=== PATIENT | female | born 1950 | race Caucasian/White ===

== ENCOUNTER 2019-12-10 20:31 | Outpatient (CLI) | payer BC, SELFPAY ==
--- NOTE | ~2019-12-10 | MR_ITS ---
EXAMINATION: MR knee LT wo con DATE: 12/10/2019 21:17 INDICATION: Left knee pain TECHNIQUE: Magnetic resonance imaging (MRI) of the left knee was performed without intravenous contra st. Sequences included coronal PD-weighted FSE, coronal PD-weighted FS FSE, sagittal T2-weighted FSE , sagittal PD-weighted FS FSE and axial PD weighted fat saturated FSE. COMPARISON: None. FINDINGS: Medial compartment: Longitudinal oblique tear which extends contact the inferior articular surface of the posterior horn of the medial meniscus. Chondral fissuring with underlying irregular articular cortex and mild subart icular cystic change at the medial side of the posterior weightbearing medial femoral condyle. Remain ing cartilage in the medial compartment appears relatively preserved. Lateral compartment: Lateral meniscus is normal. Articular cartilage is normal. Patellofemoral compartment: Deep chondral ulceration with minimal subarticular edema at the cephalad two thirds of the medial pat ellar facet and patellar apical ridge. Trochlear cartilage is normal. Ligaments and tendons: Anterior and posterior cruciate ligaments are normal. The medial collateral ligament and fibular dora ateral ligament complex are normal. The extensor mechanism is normal. The visualized medial and later al hamstring tendons as well as the iliotibial band are normal. Fluid: Small knee joint effusion. Partial suprapatellar plical band. No loose osteochondral bodies identifie d. 3.8 x 2.7 x 0.9 cm Mcmahan cyst with mild synovitis. Osseous/other: Bone alignment is normal. Sclerotic bone island at the medial tibial plateau. No fracture or patholog ic marrow replacing process. IMPRESSION: 1. Longitudinal oblique tear of the posterior horn of the medial meniscus. 2. Mild osteoarthritis in the medial and patellofemoral compartments with high-grade chondromalacia a t the posterior weightbearing medial femoral condyle and at the medial patellar facet. 3. Likely reactive small left knee joint effusion. 4. Small Mcmahan's cyst. Reviewed, dictated and finalized at location A. IMPRESSION: 1. Longitudinal oblique tear of the posterior horn of the medial meniscus. 2. Mild osteoarthritis in the medial and patellofemoral compartments with high- grade chondromalacia at the posterior weightbearing medial femoral condyle and at the medial patellar facet. 3. Likely reactive small left knee joint effusion. 4. Small Mcmahan's cyst.
== END 2019-12-10 20:32 | disposition home or self-care (01) ==
PROVIDERS: PCP Internal Medicine; Visit Provider Nurse Practitioner Family
DX: M17.12 Unilateral primary osteoarthritis, left knee (principal); M71.22 Synovial cyst of popliteal space [Baker], left knee; M25.462 Effusion, left knee; S83.242A Other tear of medial meniscus, current injury, left knee, initial encounter; X58.XXXA Exposure to other specified factors, initial encounter
CPT/HCPCS: 73721

== ENCOUNTER 2020-01-13 10:23 | Outpatient (CLI) | payer BC, SELFPAY ==
--- NOTE | 2020-01-13 10:25 | ECG_ITS ---
Measurements Intervals [place] Rate: 64 P: [place]: 0 QRS: 70 QRSD: 104 T: 61 QT: 386 QTc: 400 Interpretive Statements SINUS RHYTHM WITH FIRST DEGREE AV BLOCK ABNORMAL ECG Electronically Signed On 01-13-2020 13:27:57 CDT by Akhil Vergara D.O.
== END 2020-01-13 10:24 | disposition home or self-care (01) ==
LOC: ANHSURGERY 10:25
PROVIDERS: PCP Internal Medicine; Visit Provider Orthopaedic Surgery
DX: I10 Essential (primary) hypertension (principal); I44.0 Atrioventricular block, first degree
CPT/HCPCS: 93005

== ENCOUNTER 2020-01-14 00:38 | Outpatient (CLI) | payer BC, SELFPAY ==
[2020-01-14 19:08] LABS: SARS-CoV-2 RNA PCR Negative
== END 2020-01-14 00:39 | disposition home or self-care (01) ==
LOC: ANHCOVIDDT 00:38
PROVIDERS: PCP Internal Medicine; Visit Provider Orthopaedic Surgery
DX: Z01.812 Encounter for preprocedural laboratory examination (principal); Z11.59 Encounter for screening for other viral diseases
CPT/HCPCS: 87635; C9803; U0003

== ENCOUNTER 2020-01-16 00:43 | Day surgery (SDC) | payer BC, SELFPAY ==
[2020-01-10 14:22] VITALS: BMI 35.4
--- NOTE | 2020-01-15 13:27 | WPDANESEPPF ---
Anes - Initial Pre Proc Eval Procedure: Operation Date: 01/16/20 07:30 Proposed Procedures p Left Knee Arthroscopy, Debride Meniscus, Synovectomy, Chondroplasty, Proceed As Indicated, Left Ankle Injection - Jordan Castro MD Date/Time: 01/15/20 13:27 Surgeon: Jordan Castro MD Pre Op Diagnosis: left knee pain,left medial menisc tear,chondromyla Patient Data Age: 69 Gender: F Height: 5 ft 5 in Weight: 96.65 kg Allergies Allergy/AdvReac Type Severity Reaction Status Date / Time Sulfa (Sulfonamide Allergy Severe Hives Verified 01/16/20 06:45 Antibiotics) sulfanilamide Allergy Severe Hives Verified 01/16/20 06:45 codeine AdvReac Intermediate Nausea Verified 01/16/20 06:45 tramadol AdvReac Intermediate Hallucinati Verified 01/16/20 06:45 ng Home Medications Medication Instructions Recorded Confirmed Type diclofenac sodium 75 mg PO BID 06/18/19 01/16/20 History diltiazem HCl [Matzim LA] 240 mg PO DAILY 06/18/19 01/16/20 History estradiol [Estrace] 1 mg PO DAILY 06/18/19 01/16/20 History fluticasone propion-salmeterol 250 inh INHALATION BID 06/18/19 01/16/20 History [Advair Diskus] gabapentin [Neurontin] 400 mg PO BID 06/18/19 01/16/20 History gabapentin [Neurontin] 800 mg PO HS 06/18/19 01/16/20 History hydrocodone-acetaminophen [Goodells] 5 tablet PO BID 06/18/19 01/16/20 History levothyroxine [Synthroid] 125 mcg PO DAILY 06/18/19 01/16/20 History omeprazole 20 mg PO DAILY 06/18/19 01/16/20 History oxybutynin chloride [Ditropan XL] 10 mg PO DAILY 06/18/19 01/16/20 History trazodone 50 mg PO HS 06/18/19 01/16/20 History albuterol sulfate 90 mcg/actuation 2 inhalation INHALATION QID PRN #1 10/21/19 01/16/20 Rx breath activated powder inhaler each azelastine 1 spray INTRANASAL QPM 01/10/20 01/16/20 History cetirizine [Zyrtec] 10 mg PO DAILY 01/10/20 01/16/20 History fluticasone propionate [Flonase 1 spray INTRANASAL DAILY 01/10/20 01/16/20 History Allergy Relief] lisinopril 20 mg PO DAILY 01/10/20 01/16/20 History Patient hx anesthesia problems: post op nausea/vomiting Family hx anesthesia problems: none PMFSH Past Medical History Medical History (Updated 01/08/20 @ 17:28 by Jordan Castro MD) Acute pain of left knee Ankle impingement syndrome, right Asthma Degenerative joint disease of ankle Fibromyalgia HTN (hypertension) Hypercholesterolemia Obesity XENIA (obstructive sleep apnea) Social History Social History Smoking status: Never smoker Smoking end date: 07/03/69 Alcohol intake: current Alcohol use details: BEER/MIX DRINK ONE DRINK PER MONTH Living arrangements: with family Gender identity (if verbalized by the patient): Female Spiritual care concerns: No Anes - Eval Final PreProcedure Day of Procedure 01/15/20 13:27 Patient weight: obese Heart: regular rate and rhythm Lungs: clear to auscultation Airway: Mallampati scale class III Neurological: alert and oriented Last oral intake: >/= 8 hours ASA classification: III Anesthetic plan: proceed Anesthesia type and monitoring: general LMA and standard monitoring Informed Consent: The patient's anesthetic plan and its attendant risks and benefits were discussed with the patient/family/POA. Questions were solicited and answers provided to the satisfaction of the patient/family/POA.
[2020-01-16] VITALS (8 sets, daily range): BP systolic 108–140; BP diastolic 57–91; PULSE 67–87; RESP 15–20; TEMP 36.1–36.7; O2SAT 93–100
[2020-01-16] MEDS: LACTATED RINGERS 1,000 ML 30 ML IV CONT ×3 (07:00→09:08)
--- NOTE | 2020-01-16 07:05 | WPDHPUPDATE1 ---
History and Physical Update Update Date/Time: 01/16/20 07:05 History and Physical has been reviewed, including an updated exam of the patient. There are NO changes in the patient's condition. Covid test negative. Risks, benefits, and alternatives have been discussed and questions answered. Patient agrees to proceed with procedure.
[2020-01-16] MEDS: ACETAMINOPHEN 500 MG TABLET 1000 MG PO (07:09)
[2020-01-16] MEDS: KETOROLAC 15 MG/ML VIAL (*BKC) IV PUSH (07:10)
[2020-01-16] MEDS: SCOPOLAMINE 1.5 MG PATCH TRANSDERM (07:15)
[2020-01-16] MEDS: ONDANSETRON INJ 4 MG/2 ML VIAL IV PUSH (07:15)
[2020-01-16] MEDS: ceFAZolin 2 GM/D5W 50 ML 2 GM/50 ML BAG IVPB (07:23)
[2020-01-16] MEDS: BUPIVACAINE/EPINEPHRINE 0.5% 10 ML VIAL INFILTRATE (07:48)
[2020-01-16] MEDS: methylPREDNISolone ACETATE 80 MG/ML VIAL IM (07:49)
--- NOTE | 2020-01-16 08:46 | PM.PROC ---
Procedure Note - Detailed Date of procedure: 01/16/20 Pre-op diagnosis: left knee pain,left medial menisc tear,chondromyla Preop diagnosis as above plus synovitis. left ankle arthritis Post-op diagnosis: same Procedure performed: left knee arthroscopy with partial medial meniscectomy, synovectomy, chondroplasty, left ankle cortisone injection Description of procedure: Indications: Patient is a 69-year-old woman who sustained an injury to her left knee. MRI demonstrates medial meniscus tear, effusion and synovitis. She has failed conservative treatment and presents now for operative treatment. Also with bilateral ankle arthritis and anterior impingement. Left ankle pain with weight-bearing and activity. Indicated for cortisone injection. What was done: Informed consent given by patient. Operative extremity marked in preoperative holding area. Patient received intravenous antibiotics. Patient brought to operating room and underwent general anesthetic by anesthesia team. Positioned supine on operating room table. Left leg placed into a posterior thigh leg acosta. Foot of the table dropped to 90? and right leg padded out of the field. Time-out performed confirming patient, site of surgery and plan. Left knee prepped and draped in usual sterile surgical fashion using ChloraPrep skin solution. Standard arthroscopic portals made by using a 11 blade knife for the anterior lateral portal 1st. Capsule penetrated bluntly. Camera and inflow started. The below operative findings noted. Intra-articular visualization used to position the anterior medial portal using 22 gauge spinal needle. A 11 blade knife used for the skin and blunt penetration of the capsule. 4.7 millimeter arthroscopic shaver introduced and partial medial meniscectomy of the loose and torn portion performed. Edge of meniscus completed with arthroscopic Wand. Arthroscopic Wand used to perform chondroplasty of the patellofemoral articulation and the medial femoral condyle. Shaver reintroduced and a synovectomy performed of the anterior fat pad and extensive synovium as well as medial and lateral plica. Bleeding points coagulated with Wand. Knee inspected, no loose pieces noted. 1 liter of irrigant infused and suction out. Arthroscopic cannulas removed. Skin closed with 4 nylon interrupted suture. Local anesthetic with 0.25% Marcaine. Sterile dressing applied. Patient awoken from anesthesia, extubated and taken to recovery room in stable condition. All sponge needle and instrument counts correct at the end of the case. Anesthesia: GLMA Surgeon: Jordan Castro MD Estimated blood loss (mL): 10 Drains: No Packing: No Pathology: none sent Complications: None Condition: stable Disposition: PACU Findings: left knee arthroscopy shows complex tear posterior horn medial meniscus with a small popliteal cyst communication, ACL and PCL intact. Grade 2 to 3 chondromalacia weight-bearing portion medial femoral condyle. Grade 1 chondromalacia medial tibial plateau. Lateral compartment intact with meniscus intact, grade 0 to 1 chondromalacia lateral femoral condyle and tibial plateau. Grade 2 chondromalacia patellofemoral articulation with extensive anterior synovitis hypertrophied fat pad and medial plica.
== END 2020-01-16 10:34 | disposition home or self-care (01) ==
PROVIDERS: PCP Internal Medicine; Visit Provider Orthopaedic Surgery
PROC: (CPT 29870; principal; 2020-01-16 07:30)
DX: S83.232A Complex tear of medial meniscus, current injury, left knee, initial encounter (principal); X50.0XXA Overexertion from strenuous movement or load, initial encounter; M94.262 Chondromalacia, left knee; M65.862 Other synovitis and tenosynovitis, left lower leg; J45.909 Unspecified asthma, uncomplicated; M79.7 Fibromyalgia; I10 Essential (primary) hypertension; E78.00 Pure hypercholesterolemia, unspecified; G47.33 Obstructive sleep apnea (adult) (pediatric); E66.9 Obesity, unspecified; Z68.36 Body mass index [BMI] 36.0-36.9, adult
CPT/HCPCS: 29881; A9270; J0690; J1040; J1100; J1885; J2250; J2370; J2405; J2704; J3010; J7120

== ENCOUNTER 2020-03-12 09:45 | Outpatient (CLI) | payer BC, SELFPAY ==
--- NOTE | ~2020-03-12 | MM_ITS ---
EXAMINATION: MM screening [facility] BI w annalisa HISTORY: Screening TECHNIQUE: Craniocaudal and mediolateral oblique 3-D tomosynthesis images were obtained and synthetic 2-D images were generated. CAD analysis was submitted and interpreted. COMPARISON: Comparison to multiple prior studies sequentially, with oldest reviewed study dated 11/22. BREAST PARENCHYMAL COMPOSITION: There are scattered areas of fibroglandular density. FINDINGS: Stable periareolar asymmetry of the right breast. There is no evidence of suspicious mass, calcification, or architectural distortion to suggest malignancy in either breast. There has been no suspicious interval change. IMPRESSION: 1. No mammographic evidence of malignancy. 2. Recommend routine screening mammography in one year. BI-RADS Category 2: Benign finding(s). Reviewed, dictated and finalized at location A.
== END 2020-03-12 09:46 | disposition home or self-care (01) ==
PROVIDERS: PCP Internal Medicine; Visit Provider Obstetrics & Gynecology
DX: Z12.31 Encounter for screening mammogram for malignant neoplasm of breast (principal)
CPT/HCPCS: 77063; 77067

== ENCOUNTER 2020-09-02 16:50 | Outpatient (NON) | payer BC, SELFPAY ==
[2020-09-02 17:17] LABS: Crystals Synovial Fluid None Seen (None Seen)
== END 2020-09-02 16:51 ==
PROVIDERS: PCP Internal Medicine; Visit Provider Orthopaedic Surgery
DX: M25.472 Effusion, left ankle (principal)
CPT/HCPCS: 36415; 86430; 88108; 89060

== ENCOUNTER → 2021-05-19 13:30 | Outpatient (CLI) | payer MEDICARE, SELFPAY ==
--- NOTE | ~2021-05-19 | MM_ITS ---
EXAMINATION: MM screening [facility] BI w annalisa HISTORY: Screening mammogram TECHNIQUE: Craniocaudal and mediolateral oblique 3-D tomosynthesis images were obtained and synthetic 2-D images were generated. CAD analysis was submitted and interpreted. COMPARISON: 03/12/2020, 03/01/2019 BREAST PARENCHYMAL COMPOSITION: The breasts are almost entirely fatty. FINDINGS: There is no evidence of suspicious mass, calcification, or architectural distortion to sugg est malignancy in either breast. There has been no suspicious interval change. IMPRESSION: 1. No mammographic evidence of malignancy. 2. Recommend routine screening mammography in one year. BI-RADS Category 1: Negative Reviewed, dictated and finalized at location A. ER AIRCRAFT
== END ==
PROVIDERS: PCP Internal Medicine; Visit Provider Obstetrics & Gynecology
DX: Z12.31 Encounter for screening mammogram for malignant neoplasm of breast (principal)
CPT/HCPCS: 77063; 77067

== ENCOUNTER → 2021-05-19 13:31 | Outpatient (CLI) | payer MEDICARE, SELFPAY ==
--- NOTE | ~2021-05-19 | XR_ITS ---
XR ankle RT 2V DATE: 05/19/2021 14:35 INDICATION: Chronic pain in both ankles TECHNIQUE: 3 views COMPARISON: 12/03/2019 right ankle FINDINGS: There is soft tissue swelling. There is prominent tibiotalar osteoarthritis including the p rominent anterior spurring, in addition to joint space narrowing. No fracture or dislocation of the ankle or disruption of the ankle mortise. There is plantar calcaneal enthesopathy. IMPRESSION: Tibiotalar osteophyte is Plantar calcaneal enthesopathy Reviewed, dictated and finalized at location A. ECTOR FILTER TIP
--- NOTE | ~2021-05-19 | XR_ITS ---
XR ankle LT 2V DATE: 05/19/2021 14:35 INDICATION: Left ankle pain TECHNIQUE: AP and lateral views COMPARISON: 12/03/2019 left ankle FINDINGS: There is prominent osteoarthritis at the ankle joint. No fracture or dislocation of the ankle or disruption of the ankle mortise. No periosteal reaction or bone destruction. Plantar calcaneal enthesopathy. IMPRESSION: Osteoarthritis at the tibiotalar joint Plantar calcaneal enthesopathy Reviewed, dictated and finalized at location A. INE HAMPER MAKER
== END ==
PROVIDERS: PCP Internal Medicine; Visit Provider Internal Medicine
DX: M25.571 Pain in right ankle and joints of right foot (principal); G89.29 Other chronic pain; M25.572 Pain in left ankle and joints of left foot; M25.771 Osteophyte, right ankle; M77.31 Calcaneal spur, right foot; M19.072 Primary osteoarthritis, left ankle and foot; M77.32 Calcaneal spur, left foot
CPT/HCPCS: 73600

== ENCOUNTER 2022-10-17 10:59 | Outpatient (CLI) | payer MEDICARE, SELFPAY ==
--- NOTE | ~2022-10-17 | US_ITS ---
EXAMINATION: US carotid duplex BI DATE: 10/17/2022 12:21 INDICATION: Atrial flutter TECHNIQUE: Grayscale, color Doppler, and pulsed Doppler images of the cervical carotid arteries were obtained. The degree of vessel stenosis is placed in one of the following categories: normal, <50%, 5 0-69%, >=70% but less than near-occlusion, near-occlusion, or total occlusion. Note that percent sten osis relative to normal distal artery lumen diameter is indirectly measured from velocity measurement s as described by Hari, et al. Radiology 2003; 229:340-346. Notes: Normal: Peak systolic velocity <125 centimeters/sec and no plaque <50%. Peak systolic velocity <125 ( EDV <40; ICA/CCA PSV ratio <2.0; used these factors only a tandem lesions or low cardiac output or co ntralateral disease) 50-69 %: PSV 125-230 (EDV 40-100; ratio 2-4) >= 70% but less than near occlusion: PSV greater than 230 (EDV > 100; ratio> 4.0) Near Occlusion: PSV that is variable; markedly narrowed lumen Occlusion: Absent flow on color/spectral Doppler and no lumen on frey scale. COMPARISON: None. FINDINGS: RIGHT: The right common carotid artery (CCA) peak systolic velocity (PSV) is 94 cm/s. The right internal car otid artery (ICA) PSV is 235 cm/s. The right ICA end-diastolic velocity (EDV) is 44 cm/s. The right I CA/CCA PSV ratio is 2.5. The external carotid artery (ECA) PSV is 99 cm/s. There is antegrade flow in the right vertebral artery. LEFT: The left CCA PSV is 150 cm/s. The left ICA PSV is 82 cm/s. The left ICA EDV is 9 cm/s. The left ICA/C CA PSV ratio is 0.5. The ECA PSV is 59 cm/s. There is antegrade flow in the left vertebral artery. IMPRESSION: 1. Greater than or equal to 70% stenosis in the right internal carotid artery by sonographic criteria . 2. Less than 50% stenosis in the left internal carotid artery by sonographic criteria. Reviewed, dictated and finalized at location A. IMPRESSION: 1. Greater than or equal to 70% stenosis in the right internal carotid artery b y sonographic criteria. 2. Less than 50% stenosis in the left internal carotid artery by sonographic cr iteria.
== END 2022-10-17 11:00 | disposition home or self-care (01) ==
PROVIDERS: PCP Student in an Organized Health Care Education/Training Program; Visit Provider Internal Medicine Cardiovascular Disease
DX: I65.21 Occlusion and stenosis of right carotid artery (principal); I65.22 Occlusion and stenosis of left carotid artery
CPT/HCPCS: 93880

== ENCOUNTER 2022-11-03 14:10 | Outpatient (CLI) | payer MEDICARE, SELFPAY ==
--- NOTE | 2022-11-03 14:30 | ECHO_ITS ---
Patient Info Name: Alex Mays Age: 72 years : 1950 Gender: Female Ht: 65 in Wt: 205 lbs BSA: 2.10 m2 HR: 85 bpm BP: 124 / 64 mmHg Technical Quality: Good Exam Date: 11/03/2022 3:15 PM Exam Location: [facility] Patient Status: Outpatient Admit Date: 11/03/2022 Staff Ordering Physician: Akhil Vergara DO Derrick Builder: Radha Jones RDCS Attending Provider: Akhil Vergara DO Referring Physician: Jai BOGGS; Exam Type: CA echo doppler color flow Study Info Indications - atrial flutter Complete two-dimensional, color flow and Doppler transthoracic echocardiogram is performed. Summary 1. Complete two-dimensional, color flow and Doppler transthoracic echocardiogram is performed. 2. Left ventricular chamber dimension is normal. 3. Left ventricular systolic function is normal, estimated at 60-65%. 4. There is mild concentric increased left ventricular wall thickness. 5. The left ventricular diastolic function is grade I diastolic dysfunction. 6. E/e' 9 is minimally elevated. 7. Global longitudinal strain is normal at -19.5%. 8. Left atrial chamber dimension is mildly enlarged. 9. The mitral valve has mildly calcified leaflets and moderately calcified annulus. 10. There is mild mitral valve regurgitation. 11. There is mild tricuspid valve regurgitation. 12. No pulmonary hypertension, estimated pulmonary arterial systolic pressure is 23 mmHg. Left Ventricle E/e' 9 is minimally elevated. Global longitudinal strain is normal at -19.5%. Left ventricular chamber dimension is normal. Left ventricular systolic function is normal, estimated at 60-65%. There is mild concentric increased left ventricular wall thickness. The left ventricular diastolic function is grade I diastolic dysfunction. Right Ventricle Right ventricular chamber dimension is normal. Right ventricular systolic function is normal. Left Atria Left atrial chamber dimension is mildly enlarged. Right Atria Right atrial chamber dimension is normal. Aortic Valve The aortic valve is trileaflet. There is no aortic valve stenosis. There is no aortic valve regurgitation. Pulmonic Valve There is no pulmonic regurgitation. Mitral Valve The mitral valve has mildly calcified leaflets and moderately calcified annulus. There is no mitral valve stenosis. There is mild mitral valve regurgitation. Tricuspid Valve There is mild tricuspid valve regurgitation. No pulmonary hypertension, estimated pulmonary arterial systolic pressure is 23 mmHg. Pericardium/Pleural There is no pericardial effusion. Inferior Vena Cava Normal inferior vena cava with >50% collapse upon inspiration consistent with normal right atrial pressure, 5 mmHg. Aorta The aortic root size at the sinus of Valsalva is normal. Left Ventricular Outflow Tract Name Value Normal LVOT 2D LVOT Diameter 2.0 cm LVOT Doppler LVOT Peak Gradient 5 mmHg LVOT Mean Gradient 3 mmHg LVOT VTI 24 cm LVOT VTI/AV VTI Ratio 0.9 LVOT Stroke Volume 74 ml LVOT CO 14.5 l/min LVOT CI
== END 2022-11-03 14:11 | disposition home or self-care (01) ==
LOC: ANHCARD 14:12
PROVIDERS: PCP Student in an Organized Health Care Education/Training Program; Visit Provider Internal Medicine Cardiovascular Disease
DX: I48.92 Unspecified atrial flutter (principal); I36.1 Nonrheumatic tricuspid (valve) insufficiency; I34.0 Nonrheumatic mitral (valve) insufficiency
CPT/HCPCS: 93306

== ENCOUNTER 2023-07-06 09:37 | Outpatient (CLI) | payer MEDICARE, SELFPAY ==
--- NOTE | 2023-07-06 | EST_ITS ---
Patient Info Name: Alex Mays Age: 72 years : 1950 Gender: Female Ht: 65 in Wt: 213 lbs BSA: 2.15 m2 HR: 79 bpm BP: 141 / 60 mmHg Heart Rhythm: Sinus Rhythm Exam Date: 07/06/2023 10:55 AM Exam Location: Echo Lab Patient Status: Outpatient Admit Date: 07/06/2023 Staff Ordering Physician: Akhil Vergara DO Attending Provider: Akhil Vergara DO Exercise Technologist: Emely Panda CT Exercise Physician: Akhil Vergara DO Exam Type: CA stress criselda w NM Study Info Indications R07.89 - Other chest pain A regadenoson stress test was performed. Summary 1. 1. Negative lexiscan stress test for ischemic ST changes by ECG criteria. 2. 2. Stable hemodynamics throughout the test. 3. 3. Nuclear scan to follow and will be reported separately. Please correlate with it. 4. 4. Patient informed of the above results. Protocol: Lexiscan Stress ECG Details Stage: REST Duration (min): 1 min : 10 sec HR (bpm): 78 SBP (mmHg): 141 DBP (mmHg): 60 Stage: REST Duration (min): 9 min : 20 sec HR (bpm): 79 SBP (mmHg): 141 DBP (mmHg): 60 Stage: STAGE 1 Duration (min): 1 min : 0 sec HR (bpm): 85 SBP (mmHg): 139 DBP (mmHg): 45 Stage: RECOVERY Duration (min): 1 min : 0 sec HR (bpm): 86 SBP (mmHg): 139 DBP (mmHg): 45 Stage: RECOVERY Duration (min): 2 min : 0 sec HR (bpm): 84 SBP (mmHg): 139 DBP (mmHg): 45 Stage: RECOVERY Duration (min): 3 min : 0 sec HR (bpm): 82 SBP (mmHg): 118 DBP (mmHg): 47 Stage: RECOVERY Duration (min): 3 min : 49 sec HR (bpm): 80 SBP (mmHg): 118 DBP (mmHg): 47 Rest HR: 79 bpm Peak HR: 88 bpm Rest Sys BP: 141 mmHg Peak Sys BP: 139 mmHg Max Pred HR: 149 bpm % Max Pred HR: 59 % Target HR: 127 bpm Max RPP: 12,232 bpm*mmHg Termination Reason: Completed protocol Cardiac Symptoms: Shortness of breath Total Time: 1 min : 0 sec Rest Morales BP: 60 mmHg Peak Morales BP: 45 mmHg Total Dose: 0.4 mg Resting ECG Sinus rhythm with first degree AV block. Stress ECG No ST changes. Arrhythmias None. Report Signatures
--- NOTE | ~2023-07-06 | NM_ITS ---
EXAMINATION: NM criselda stress w perfusion DATE: 07/06/2023 11:57 INDICATION: Chest pain TECHNIQUE: Rest images were obtained following intravenous administration of 9.44 mCi Tc99m tetrofosm in (Myoview). The patient was infused intravenously with Lexiscan (Regadenoson). Then, 30 mCi Tc99m t etrofosmin (Myoview) was administered intravenously, and stress images were obtained. Data was recons tructed into short axis and horizontal and vertical long axis SPECT images. Gated SPECT images were a lso obtained. COMPARISON: None. FINDINGS: There is no definite reversible or fixed perfusion abnormality to suggest ischemia or infar ction. There is normal left ventricular chamber size, wall motion and ejection fraction. Left ventr icular ejection fraction measures >70%. IMPRESSION: 1. Normal myocardial perfusion at rest and during stress. 2. Left ventricular ejection fraction measuring >70%. Reviewed, dictated and finalized at location A. OW TRIMMER
== END 2023-07-06 09:38 | disposition home or self-care (01) ==
PROVIDERS: Visit Provider Internal Medicine Cardiovascular Disease
DX: R07.9 Chest pain, unspecified (principal)
CPT/HCPCS: 78452; 93017; A9502; J2785

== ENCOUNTER 2023-09-21 10:22 | Outpatient (CLI) | payer MEDICARE, SELFPAY ==
--- NOTE | ~2023-09-21 | MM_ITS ---
EXAMINATION: MM screening [facility] BI w annalisa HISTORY: Screening TECHNIQUE: Craniocaudal and mediolateral oblique 3-D tomosynthesis images were obtained and synthetic 2-D images were generated. CAD analysis was submitted and interpreted. COMPARISON: Comparison to multiple prior studies sequentially, with oldest reviewed study dated 03/01. BREAST PARENCHYMAL COMPOSITION: Not dense: There are scattered areas of fibroglandular density. FINDINGS: There is no evidence of suspicious mass, calcification, or architectural distortion to sugg est malignancy in either breast. There has been no suspicious interval change. IMPRESSION: 1. No mammographic evidence of malignancy. 2. Recommend routine screening mammography in one year. BI-RADS Category 1: Negative Reviewed, dictated and finalized at location A.
== END 2023-09-21 10:23 ==
LOC: MICIMG 10:24
PROVIDERS: PCP Family Medicine; Visit Provider Obstetrics & Gynecology
DX: Z12.31 Encounter for screening mammogram for malignant neoplasm of breast (principal)
CPT/HCPCS: 77063; 77067

== ENCOUNTER 2024-02-16 12:07 | Outpatient (CLI) | payer MEDICARE, SELFPAY ==
--- NOTE | ~2024-02-16 | XR_ITS ---
EXAMINATION: XR chest 2V 02/16/2024 12:25 INDICATION: Cough, wheezing PROCEDURE: 2 view chest COMPARISON: Comparison to multiple prior studies sequentially, with oldest reviewed study dated 08/2019. FINDINGS: The lungs are clear. The cardiomediastinal silhouette is within normal limits. There are no pleural effusions. There is no pneumothorax suspected. IMPRESSION: 1: NO ACUTE CARDIOPULMONARY DISEASE. Reviewed, dictated and finalized at location B.
== END 2024-02-16 12:08 | disposition home or self-care (01) ==
PROVIDERS: PCP Family Medicine; Visit Provider Physician Assistant
DX: J45.909 Unspecified asthma, uncomplicated (principal); R05.9 Cough, unspecified
CPT/HCPCS: 71046

== ENCOUNTER 2024-06-29 07:55 | Outpatient (CLI) | payer MEDICARE, SELFPAY ==
[2024-06-29 08:25] LABS: Alanine Aminotransferase 21 U/L (6-35); Albumin Level 3.8 g/dL (3.5-5.1); Alkaline Phosphatase 64 U/L (38-126); Anion Gap -4 mmol/L (4-12); Aspartate Amino Transferase 21 U/L (14-36); Bilirubin,Total 0.5 mg/dL (0.2-1.3); Blood Urea Nitrogen 22 mg/dL (7-17); Calcium 8.9 mg/dL (8.4-10.2); Carbon Dioxide 31 mmol/L (22-30); Chloride 107 mmol/L (98-107); Cholesterol 185 mg/dL (0-200); Estimated Glomerular Filt Rate > 60; Glucose 91 mg/dL (65-110); HDL Direct 91 mg/dL; Potassium 4.2 mmol/L (3.4-5.0); Sodium 134 mmol/L (137-145); Triglycerides 85 mg/dL (<150)
[2024-06-29 08:36] LABS: LDL Cholesterol Direct 82 mg/dL
== END 2024-06-29 07:56 | disposition home or self-care (01) ==
PROVIDERS: PCP Family Medicine; Visit Provider Internal Medicine Cardiovascular Disease
DX: E78.00 Pure hypercholesterolemia, unspecified (principal)
CPT/HCPCS: 36415; 80053; 80061

== ENCOUNTER 2024-06-30 13:44 | Emergency (ER) | payer MEDICARE, SELFPAY ==
[2024-06-30 14:18] VITALS: BP 111/64; PULSE 84; RESP 16; TEMP 36.3; O2SAT 98
--- NOTE | 2024-06-30 15:00 | ED.URI ---
HPI - URI/Sore Throat General Chief Complaint: Upper Respiratory Infection Stated Complaint: Upper Respiratory Symptoms Time Seen by Provider: 06/30/24 14:48 Source: patient and RN notes reviewed Mode of arrival: ambulatory Limitations: no limitations History of Present Illness HPI Narrative: Patient presents today with a 2 day history of fatigue, cough, sore throat, watery eyes, body aches. Denies fever or nasal congestion. She has tried Tylenol, Delsym, and cough drops with minimal relief. Currently rates her pain 7/10. History of asthma and rheumatoid arthritis. She is due for her next RA infusion this week Related Data Home Medications ?Medication ?Instructions ?Recorded ?Confirmed ?Last Taken ?Type levothyroxine 125 mcg tablet 125 mcg PO DAILY 06/18/19 06/30/24 01/16/20 05:30 History (Synthroid) omeprazole 20 mg capsule,delayed 20 mg PO DAILY 06/18/19 06/30/24 01/15/20 History release lisinopril 20 mg tablet 20 mg PO DAILY 01/10/20 06/30/24 01/15/20 History cyanocobalamin (vitamin B-12) 100 mcg subcut MONTHLY 04/09/20 06/30/24 Unknown History 1,000 mcg/mL injection solution azelastine 137 mcg (0.1 %) nasal 1 spray intranasal Q12H 01/12/23 06/30/24 Unknown History spray cetirizine 10 mg tablet 10 mg PO DAILY PRN allergy symptoms 01/12/23 06/30/24 Unknown History cholecalciferol (vitamin D3) 10 10 mcg PO DAILY 01/12/23 06/30/24 Unknown History mcg (400 unit) capsule cyclobenzaprine 5 mg tablet 5 mg PO TID PRN muscle pain 01/12/23 06/30/24 Unknown History diclofenac epolamine 1.3 % 1 patch topical .prn 01/12/23 06/30/24 Unknown History transdermal 12 hour patch estradiol 1 mg tablet 1 mg PO DAILY 01/12/23 06/30/24 Unknown History folic acid 1 mg tablet 1 mg PO DAILY 01/12/23 06/30/24 Unknown History gabapentin 400 mg capsule 400 mg PO QID 01/12/23 06/30/24 Unknown History hydrocodone 7.5 mg-acetaminophen 1 tablet PO QHS PRN pain 01/12/23 06/30/24 Unknown History 325 mg tablet magnesium 200 mg tablet 200 mg PO BID 01/12/23 06/30/24 Unknown History ondansetron HCl 8 mg tablet 8 mg PO Q12H 01/12/23 06/30/24 Unknown History methotrexate sodium 5 mg tablet 25 mg PO WEEKLY 05/15/23 06/30/24 Unknown History tolterodine 2 mg tablet 2 mg PO Q12H 04/29/24 06/30/24 Unknown History Allergies Allergy/AdvReac Type Severity Reaction Status Date / Time Sulfa (Sulfonamide Allergy Severe Hives Verified 06/30/24 14:09 Antibiotics) sulfanilamide Allergy Severe Hives Verified 06/30/24 14:09 codeine AdvReac Intermediate Nausea Verified 06/30/24 14:09 tramadol AdvReac Intermediate Hallucinati Verified 06/30/24 14:09 ng Review of Systems Review of Systems: CONSTITUTIONAL: Denies fever, chills, or sweats.+ body aches, fatigue EYES: Denies visual changes, redness, or discharge.+ watery eyes ENT: Denies rhinorrhea, congestion, or otalgia.+ sore throat CARDIOVASCULAR: Denies chest pain, palpitations, or edema. RESPIRATORY: Denies dyspnea.+ cough GASTROINTESTINAL: Denies abdominal pain, nausea, vomiting, or diarrhea. GENITOURINARY: Denies dysuria or hematuria. SKIN: Denies rash, itching, or wounds. MUSCULOSKELETAL: Denies back pain, joint pain, or myalgia. NEUROLOGIC: Denies headache, numbness, tingling, or weakness. PSYCH: Denies depression or anxiety. [facility] Past Medical History Medical History Hallux rigidus of right foot Ankle impingement syndrome, right Degenerative joint disease of ankle Acute pain of left knee Fibromyalgia HTN (hypertension) XENIA (obstructive sleep apnea) Asthma Hypercholesterolemia Obesity Family History Family History Grandparent Family history of kidney disease Family history of heart disease in male family member before age 55 Sibling Family history of migraine headaches Asthma Patient's sister is in good health Father Family history of glaucoma Family history of chronic obstructive pulmonary disease, Onset Age: 87 Mother Hypertension Asthma Family history of heart disease in male family member before age 55 Patient's mother is in good health Family history of arthritis Family history of anemia Family history of chronic obstructive pulmonary disease, Onset Age: 4 Family history of congestive heart failure Other Acute myocardial infarction Cerebrovascular accident Diabetes mellitus Family history of allergic disorder Family history of cardiovascular disease Family history of mental disorder Social History Social History Smoking status: Former smoker Smoking end date: 07/03/69 Alcohol intake: current Alcohol use details: BEER/MIX DRINK ONE DRINK PER MONTH Do You Feel Safe in your Home?: Yes Lack of Transportation: No Lack of Food: Never True Current Housing: I Have Housing Concerned About Future Housing: No Difficulty Paying Gas/Electric Bills: No Difficulty Paying for Meds: No Currently Unemployed: No Education: Decline to Answer Difficulty w/ Childcare or Family Care: No Living arrangements: with family Gender identity (if verbalized by the patient): Female Spiritual care concerns: No Comments At time of signature, I have reviewed and agree with nursing past medical, surgical, social and family history unless otherwise noted. Please see nursing chart for further information. There is no relevant family history pertinent to the presenting complaint Exam Narrative: GENERAL: Ill-appearing, well-nourished, and in no acute distress. HEAD: Normocephalic, atraumatic. EYES: EOMI. No redness or drainage. Conjunctivae normal. ENT: Mucous membranes pink and moist. Nares clear. No rhinorrhea. TMs normal bilaterally. Throat normal. Uvula midline. NECK: Normal AROM. Supple. No lymphadenopathy. CHEST: No respiratory distress. Clear to auscultation. Deep breath elicits coughing episodes. HEART: Regular rate and rhythm. No murmur appreciated. EXTREMITIES: Normal range of motion. No edema. SKIN: Warm, dry, no rash. Capillary refill normal. Normal skin turgor. NEURO: No focal deficits. Alert and oriented x3. Gait steady. PSYCH: Normal affect. No signs of depression or anxiety. Course Course Level of Care: Express Care Visit Vital Signs Vital signs: Vital Signs Temperature 97.4 F L 06/30/24 14:18 Pulse Rate 84 06/30/24 14:18 Respiratory Rate 16 06/30/24 14:18 Blood Pressure 111/64 06/30/24 14:18 Pulse Oximetry 98 06/30/24 14:18 Temperature 97.4 F L 06/30/24 14:18 Pulse Rate 84 06/30/24 14:18 Respiratory Rate 16 06/30/24 14:18 Blood Pressure 111/64 06/30/24 14:18 Pulse Oximetry 98 06/30/24 14:18 Reviewed MDM - URI/Sore Throat MDM Narrative Medical decision making narrative: Testing negative. Strep culture negative. Due to patient's immunosuppression, history of asthma, and current symptoms, so she will be started on a course of Medrol and doxycycline. Recommend she get in contact with her mixing technician regarding her upcoming infusion. Anticipatory guidance given. ED precautions given. Differential Diagnosis Differential diagnosis: Likely upper respiratory infection, viral infection, bronchitis, influenza, pharyngitis and other (COVID-19, strep throat) Lab Data Attestation: I reviewed the patient's lab results. Lab results narrative: Rapid strep negative, influenza negative, COVID negative Critical Care Time Critical Care Time Critical Care Time: No Discharge Plan Discharge Clinical Impression: Asthma Upper respiratory infection Qualifiers: URI type: unspecified URI Qualified Code(s): J06.9 - Acute upper respiratory infection, unspecified Patient Disposition: Home, Self-Care Condition: Stable Instructions: Antibiotic Form Additional Instructions: Please take the Augmentin and Medrol Dosepak as directed. Use your albuterol or nebulizer treatment if needed for coughing episodes or wheezing. Follow-up with your mixing technician regarding your current illness before your infusion. Go to the ER if symptoms worsen. Patient Language: Tamazight Prescriptions: New methylprednisolone [Medrol (Reginald)] 4 mg tablets,dose pack See Rx Instructions .ROUTE .COMPLEX Qty: 21 0RF Rx Instructions: orally per package directions doxycycline hyclate 100 mg tablet 100 mg PO BID 7 Days Qty: 14 0RF No Action cetirizine 10 mg tablet 10 mg PO DAILY PRN (Reason: allergy symptoms) ondansetron HCl 8 mg tablet 8 mg PO Q12H gabapentin 400 mg capsule 400 mg PO QID estradiol 1 mg tablet 1 mg PO DAILY Rx Instructions: off 1 week; repeat cycle hydrocodone-acetaminophen 7.5-325 mg tablet 1 tablet PO QHS PRN (Reason: pain) folic acid 1 mg tablet 1 mg PO DAILY azelastine 137 mcg (0.1 %) aerosol,spray 1 spray intranasal Q12H Rx Instructions: administer into each nostril magnesium 200 mg tablet 200 mg PO BID cholecalciferol (vitamin D3) 10 mcg (400 unit) capsule 10 mcg PO DAILY cyclobenzaprine 5 mg tablet 5 mg PO TID PRN (Reason: muscle pain) diclofenac epolamine 1.3 % patch 12 hour 1 patch topical .prn tolterodine 2 mg tablet 2 mg PO Q12H cyanocobalamin (vitamin B-12) 1,000 mcg/mL solution 100 mcg subcut MONTHLY methotrexate sodium 5 mg tablet 25 mg PO WEEKLY Patient Comments: Patient doing 6 every monday lisinopril 20 mg Tablet 20 mg PO DAILY levothyroxine [Synthroid] 125 mcg tablet 125 mcg PO DAILY omeprazole 20 mg capsule,delayed release(DR/EC) 20 mg PO DAILY albuterol sulfate 2.5 mg /3 mL (0.083 %) solution for nebulization 2.5 mg inhalation QID PRN (Reason: shortness of breath or wheezing) Qty: 360 2RF amiodarone 100 mg tablet See Rx Instructions .ROUTE .COMPLEX Qty: 90 2RF Dose Instruction: TAKE 1 TABLET BY MOUTH DAILY Rx Instructions: TAKE 1 TABLET BY MOUTH DAILY amlodipine 10 mg tablet See Rx Instructions .ROUTE .COMPLEX Qty: 90 2RF Dose Instruction: TAKE 1 TABLET BY MOUTH DAILY Rx Instructions: TAKE 1 TABLET BY MOUTH DAILY albuterol sulfate 90 mcg/actuation HFA aerosol inhaler See Rx Instructions .ROUTE .COMPLEX Qty: 51 3RF Dose Instruction: USE 1 TO 2 INHALATIONS BY MOUTH INHALED EVERY 4 TO 6 HOURS NEEDED FOR SHORTNESS OF BREATH OR WHEEZING Rx Instructions: USE 1 TO 2 INHALATIONS BY MOUTH INHALED EVERY 4 TO 6 HOURS NEEDED FOR SHORTNESS OF BREATH OR WHEEZING pravastatin 10 mg tablet See Rx Instructions .ROUTE .COMPLEX Qty: 90 2RF Dose Instruction: TAKE 1 TABLET BY MOUTH DAILY Rx Instructions: TAKE 1 TABLET BY MOUTH DAILY Xarelto 20 mg tablet See Rx Instructions .ROUTE .COMPLEX Qty: 90 2RF Dose Instruction: TAKE 1 TABLET BY MOUTH EVERY EVENING (MUST ADMINISTER WITH EVENING MEAL ) Rx Instructions: TAKE 1 TABLET BY MOUTH EVERY EVENING (MUST ADMINISTER WITH EVENING MEAL ) Follow-up/Referrals: Thien,MD Soila [Primary Care Provider] -
[2024-06-30 15:07] LABS: EDCOVIDSCREEN Negative (Negative); EDINFLUASCREEN Negative (Negative); EDINFLUBSCREEN Negative (Negative); EDSTREPNEGPOS1 Negative (Negative)
== END 2024-06-30 15:11 | disposition home or self-care (01) ==
PROVIDERS: Emergency Provider Nurse Practitioner; PCP Family Medicine
DX: J45.909 Unspecified asthma, uncomplicated (principal); J06.9 Acute upper respiratory infection, unspecified; Z20.822 Contact with and (suspected) exposure to COVID-19; I10 Essential (primary) hypertension; E78.00 Pure hypercholesterolemia, unspecified; M79.7 Fibromyalgia; M06.9 Rheumatoid arthritis, unspecified; E66.9 Obesity, unspecified; Z68.36 Body mass index [BMI] 36.0-36.9, adult; Z87.891 Personal history of nicotine dependence
CPT/HCPCS: 87081; 87426; 87804; 87880; 99213; G0463

== ENCOUNTER 2024-11-08 10:51 | Emergency (ER) | payer MEDICARE, SELFPAY ==
--- NOTE | ~2024-11-08 | XR_ITS ---
XR foot RT min 3V 11/08/2024 11:19 Indication: Right foot pain Procedure: 3 views right foot Comparison: No prior studies for comparison. 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 No fracture, subluxation or disloc ation. Small degenerative calcaneal enthesophyte at the plantar surface no acute fracture or traumati c malalignment. Impression: 1: No acute fracture. Reviewed, dictated and finalized at location A. Impression: 1: No acute fracture.
[2024-11-08 10:52] VITALS: BP 142/57; PULSE 97; RESP 18; TEMP 36.4; O2SAT 99
--- OUTSIDE RECORDS SUMMARY | 2024-11-08 10:54 | XMS_ITS | Encounter Summary ---
Author Organization [facility] Address [address] [place] [address] Care Team Providers Care Blower And Compressor Assembler Name Role Phone Vanessa Ogden MD Primary Care Provider [phone] Jordan Castro MD Unavailable [phone] Soila Neumann MD Primary Care Provider [phone] Encounter Details Date Type Department Care Team (Late st Contact Info) Description 05/02/2019 MyCE-TEK Dynamicst Message Enc [facility] Medical Group Family & Internal Medicine [facility] [address] [place] [phone] [place] [address] [place] [address] RE: Question Social History Tobacco Use Types Packs/Day Years Used Date Smoking Tobacco: Never Smokeless Tobacco: Never Alcohol Use Standard Drinks/Week Comments Yes 0 (1 standard drink = 0.6 oz pur e alcohol) Rare use PHQ-2 Answer Date Recorded PHQ-2 Score 0 09/28/2018 Comments No Sex and Gender Information Value Date Recorded Sex Assigned at Female 06/28/2021 1:39 PM SAP BW BI DEVELOPER Legal Sex Female 3:51 PM SAP BW BI DEVELOPER Gender Identity Female 06/28/2021 1:39 PM SAP BW BI DEVELOPER Sexual Orientation Straight 06/28/2021 1: 39 PM SAP BW BI DEVELOPER documented as of this encounter Plan of Treatment Upcoming Encounters Date Type Department Care Team (Latest Contact Info) Description 11/13/2024 3:00 PM CDT Appointment [facility] [address] [place] [address] [place] [address] [address] [place] [address] 11/20/2024 8:40 AM CDT Hospital Encounter [facility] Interventional Pain [place] [address] [id number] Carolyn Fernando MD Three [facility] [address] [place] [address] 11/20/2024 8:40 AM CDT - 11/20/2024 9:00 AM CDT Surgery [facility] Interventional Pain [place] [address] [id number] Carolyn Fernando MD Three [facility] [address] [place] [address] BLOCK SACROILIAC JOINT 12/05/2024 1:20 PM CDT Office Visit [facility] Orthopedic Surgery[place] [address] [place] [address] [place] [address] [place] [address] 01/31/2025 1:20 PM CDT Office Visit [facility] Medical Group Family & Internal Medicine [facility] [address] [place] [address] [place] [address] [facility] [address] [place] [address] Scheduled Procedures Name Priority Associated Diagnoses Date/Ti me BLOCK SACROILIAC JOINT SI joint arthritis 11/20/2024 8:40 AM CDT documented as of this encounter Visit Diagnoses Not on filedocumented in this encounter Additional Health Concerns Infection Onset Date Last Indicated Resolved Time COVID-19 Rule Out 09/08/2021 09/08/2021 09/08/2021 10:37 AM SAP BW BI DEVELOPER documented as of this encounter Care Teams Blower And Compressor Assembler Relationship Specialty Start Date End Date Vanessa Ogden MD PCP - General INTERNAL MEDICINE 08/14/18 08/10/22 [place] [address] [facility]. [address] [place] [address] PCP - General FAMILY PRACTICE 08/11/22 Jordan Castro MD [address] [facility] [address] [facility] [address] [place] [address] Surgeon ORTHOPAEDIC SURGERY 01/13/20 documented as of this encounter
--- OUTSIDE RECORDS SUMMARY | 2024-11-08 10:54 | XMS_ITS | Encounter Summary ---
Author Organization [facility] Address [address] [place] [address] Care Team Providers Care Raw Sampler Name Role Phone Vanessa Ogden MD Primary Care Provider [phone] Jordan Castro MD Unavailable [phone] Soila Neumann MD Primary Care Provider [phone] Encounter Details Date Type Department Care Team (Late st Contact Info) Description 03/25/2019 MyCAbacuz Limitedt Message Enc [facility] Medical Group Family & Internal Medicine [facility] [address] [place] [phone] [place] [address] [place] [address] RE: Follow Up/Update Social History Tobacco Use Types Packs/Day Years Used Date Smoking Tobacco: Never Smokeless Tobacco: Never Alcohol Use Standard Drinks/Week Comments Yes 0 (1 standard drink = 0.6 oz pur e alcohol) Rare use PHQ-2 Answer Date Recorded PHQ-2 Score 0 09/28/2018 Comments No Sex and Gender Information Value Date Recorded Sex Assigned at Female 06/28/2021 1:39 PM EXECUTIVE COACH Legal Sex Female 3:51 PM EXECUTIVE COACH Gender Identity Female 06/28/2021 1:39 PM EXECUTIVE COACH Sexual Orientation Straight 06/28/2021 1: 39 PM EXECUTIVE COACH documented as of this encounter Plan of Treatment Upcoming Encounters Date Type Department Care Team (Latest Contact Info) Description 11/13/2024 3:00 PM CDT Appointment [facility] [address] [place] [address] [place] [address] [facility]. [address] [place] [address] 11/20/2024 8:40 AM CDT Hospital Encounter [facility] Interventional [place] [address] [id number] Carolyn Fernando MD Three [facility] [address] [place] [address] 11/20/2024 8:40 AM CDT - 11/20/2024 9:00 AM CDT Surgery [facility] Interventional Pain [place] [address] [phone] Carolyn Fernando MD Three [facility] [address] [place] [address] BLOCK SACROILIAC JOINT 12/05/2024 1:20 PM CDT Office Visit [facility] Orthopedic Surgery-[place] [address] [place] [address] [place] [address] [place] [address] 01/31/2025 1:20 PM CDT Office Visit [facility] Medical [facility] Family & Internal Medicine [facility] [address] [place] [phone] [place] [address] [facility] [address]. [address] [place] [address] Scheduled Procedures Name Priority Associated Diagnoses Date/Ti me BLOCK SACROILIAC JOINT SI joint arthritis 11/20/2024 8:40 AM CDT documented as of this encounter Visit Diagnoses Not on filedocumented in this encounter Additional Health Concerns Infection Onset Date Last Indicated Resolved Time COVID-19 Rule Out 09/08/2021 09/08/2021 09/08/2021 10:37 AM EXECUTIVE COACH documented as of this encounter Care Teams Raw Sampler Relationship Specialty Start Date End Date Vanessa Ogden MD PCP - General INTERNAL MEDICINE 08/14/18 08/10/22 [place] [address] [facility]. [address] [place] [address] PCP - General FAMILY PRACTICE 08/11/22 Jordan Castro MD [address] [facility] [address] [facility] [address] [place] [address] Surgeon ORTHOPAEDIC SURGERY 01/13/20 documented as of this encounter
--- OUTSIDE RECORDS SUMMARY | 2024-11-08 10:54 | XMS_ITS | Encounter Summary ---
Author Organization [facility] Address [address] [place] [address] Care Team Providers Care Moisture Meter Reader Name Role Phone Vanessa Ogden MD Primary Care Provider [phone] Jordan Castro MD Unavailable [phone] Soila Neumann MD Primary Care Provider [phone] Encounter Details Date Type Department Care Team (Late st Contact Info) Description 04/18/2019 Electronic Compliance Solutionst Message Enc [facility] Medical Group Family & Internal Medicine [facility] [address] [place] [phone] [place] [address] [place] [address] RE: Referral Request Social History Tobacco Use Types Packs/Day Years Used Date Smoking Tobacco: Never Smokeless Tobacco: Never Alcohol Use Standard Drinks/Week Comments Yes 0 (1 standard drink = 0.6 oz pur e alcohol) Rare use PHQ-2 Answer Date Recorded PHQ-2 Score 0 09/28/2018 Comments No Sex and Gender Information Value Date Recorded Sex Assigned at Female 06/28/2021 1:39 PM SECONDARY ENGLISH TEACHER Legal Sex Female 3:51 PM SECONDARY ENGLISH TEACHER Gender Identity Female 06/28/2021 1:39 PM SECONDARY ENGLISH TEACHER Sexual Orientation Straight 06/28/2021 1: 39 PM SECONDARY ENGLISH TEACHER documented as of this encounter Plan of Treatment Upcoming Encounters Date Type Department Care Team (Latest Contact Info) Description 11/13/2024 3:[address] [facility] [address] [place] [address] [place] [address] [facility] [address]. [address] [place] [address] 11/20/2024 8:40 AM CDT Hospital Encounter [facility] Interventional [place] [address] [id number] Carolyn Fernando MD Three [facility] [address] [place] [address] 11/20/2024 8:40 AM CDT - 11/20/2024 9:00 AM CDT Surgery [facility] Interventional Pain [place] [address] [phone] Carolyn Fernando MD Three [facility] [address] [place] [address] BLOCK SACROILIAC JOINT 12/05/2024 1:20 PM CDT Office Visit [facility] Orthopedic Surgery-[place] [address] [place] [address] [place] [address] [place] [address] 01/31/2025 1:20 PM CDT Office Visit [facility] Medical Group Family & Internal Medicine - [place] [address] [place] [phone] [place] [address] [facility] [address]. [address] [place] [address] Scheduled Procedures Name Priority Associated Diagnoses Date/Ti me BLOCK SACROILIAC JOINT SI joint arthritis 11/20/2024 8:40 AM CDT documented as of this encounter Visit Diagnoses Not on filedocumented in this encounter Additional Health Concerns Infection Onset Date Last Indicated Resolved Time COVID-19 Rule Out 09/08/2021 09/08/2021 09/08/2021 10:37 AM SECONDARY ENGLISH TEACHER documented as of this encounter Care Teams Moisture Meter Reader Relationship Specialty Start Date End Date Vanessa Ogden MD PCP - General INTERNAL MEDICINE 08/14/18 08/10/22 [place] [address] [facility]. [address] [place] [address] PCP - General FAMILY PRACTICE 08/11/22 Jordan Castro MD [address] [facility] [address] [facility] [address] [place] [address] Surgeon ORTHOPAEDIC SURGERY 01/13/20 documented as of this encounter
--- OUTSIDE RECORDS SUMMARY | 2024-11-08 10:54 | XMS_ITS | Encounter Summary ---
Author Organization [facility] Address [address] [place] [address] Care Team Providers Care Drilling Superintendent Name Role Phone Jordan Castro MD Unavailable [phone] Soila Neumann MD Primary Care Provider [phone] Encounter Details Date Type Department Care Team (Late st Contact Info) Description 10/21/2024 Results Follow-Up [facility] Medical Group Family & Internal Medicine [address] [address] [place] [id number] [place] [address]. [address] [place] [address] MG/PCCL UDS W CONF Social History Tobacco Use Types Packs/Day Years Used Date Smoking Tobacco: Never Smokeless Tobacco: Never Comments:na Alcohol Use Standard Drinks/Week Comments Not Currently 1.7 (1 standard drink = 0.6 oz p ure alcohol) Rare use AUDIT-C Answer Date Recorded Q1: How often do you have a drink containing alc ohol? Monthly or less 09/02/2020 Q2: How many drinks containi ng alcohol do you have on a typical day when you are drinking? 1 or 2 09/02/2020 Frequency of Binge Drinking Not on file 08/2020 PHQ-2 Answer Date Recorded Patient Health Questionnaire-2 Score 0 07/11/2024 Comments No Sex and Gender Information Value Date Recorded Sex Assigned at Female 06/28/2021 1:39 PM FURNITURE DETAILER Legal Sex Female 3:51 PM FURNITURE DETAILER Gender Identity Female 06/28/2021 1:39 PM FURNITURE DETAILER Sexual Orientation Straight 06/28/2021 1: 39 PM FURNITURE DETAILER Occupation Industry Job Start Date Job End Date RETIRED Not on file Not on file Not on file documented as of this encounter Plan of Treatment Upcoming Encounters Date Type Department Care Team (Latest Contact Info) Description 11/13/2024 3:[address] [facility] [address] [place], [place] [phone] [place] [address] [facility]. [address] [place] [phone] 11/20/2024 8:40 AM CDT Hospital Encounter [facility] Interventional [place] [address] [id number] Carolyn Fernando MD Three [facility] [address] [place] [address] 11/20/2024 8:40 AM CDT - 11/20/2024 9:00 AM CDT Surgery [facility] [place] [address] [id number] Carolyn Fernando MD Three [facility] [address] [place] [address] BLOCK SACROILIAC JOINT 12/05/2024 1:20 PM CDT Office Visit [facility] Orthopedic [place] [address] [place], [place] [phone] [place] [address] [place], [place] [phone] 01/31/2025 1:20 PM CDT Office Visit [facility] Medical [facility] Family & Internal Medicine [facility] [address] [place] [address] [place] [address] [address] [place] [address] Scheduled Procedures Name Priority Associated Diagnoses Date/Ti me BLOCK SACROILIAC JOINT SI joint arthritis 11/20/2024 8:40 AM CDT documented as of this encounter Goals Goal Patient Goal Type Associated Problems Recent Progress Patient-Stated? Author Autogenerat ed Goal Care Plan Autogenerated Problem No Sarah Becker RN documented as of this encounter Visit Diagnoses Not on filedocumented in this encounter Additional Health Concerns Active Problems Noted Date Diagnosed Date Autogenerated Problem 10/16/2024 Assessment Noted Time PHQ-9 Depression Total Score: 2 08/03/19 23 2:16 PM FURNITURE DETAILER documented as of this encounter Care Teams Drilling Superintendent Relationship Specialty [place] [address] [address] [place] [address] PCP - General FAMILY PRACTICE 08/11/22 Jordan Castro MD [address] [facility] [address] [address] Surgeon ORTHOPAEDIC SURGERY 01/13/20 documented as of this encounter
--- OUTSIDE RECORDS SUMMARY | 2024-11-08 10:54 | XMS_ITS | Encounter Summary ---
Author Organization [facility] Address [address] [place] [address] Care Team Providers Care Credit Department Manager Name Role Phone Vanessa Ogden MD Primary Care Provider [phone] Jordan Castro MD Unavailable [phone] Soila Neumann MD Primary Care Provider [phone] Encounter Details Date Type Department Care Team (Late st Contact Info) Description 08/02/2021 [employer] (Listn)t Message Enc [facility] Medical Group Family & Internal Medicine [facility] [phone] [place] [address] [place] Ogden [place] [id number] [place] [address] Hydrocodone Refil Social History Tobacco Use Types Packs/Day Years Used Date Smoking Tobacco: Never Smokeless Tobacco: Never Alcohol Use Standard Drinks/Week Comments Yes 0 (1 standard drink = 0.6 oz pur e alcohol) Rare use AUDIT-C Answer Date Recorded Q1: How often do you have a drink containing alc ohol? Monthly or less 09/02/2020 Q2: How many drinks containi ng alcohol do you have on a typical day when you are drinking? 1 or 2 09/02/2020 Frequency of Binge Drinking Not on file 08/2020 PHQ-2 Answer Date Recorded PHQ-2 Score - If the patient scores above 3, please move on to questions 3-9 0 11/03/2020 Comments No Sex and Gender Information Value Date Recorded Sex Assigned at Female 06/28/2021 1:39 PM IMAGING SYSTEM ADMINISTRATOR Legal Sex Female 3:51 PM IMAGING SYSTEM ADMINISTRATOR Gender Identity Female 06/28/2021 1:39 PM IMAGING SYSTEM ADMINISTRATOR Sexual Orientation Straight 06/28/2021 1: 39 PM IMAGING SYSTEM ADMINISTRATOR Occupation Industry Job Start Date Job End Date RETIRED Not on file Not on file Not on file COVID-19 Exposure Response Date Recorded In the last month, have you been in contact with someone who was confirmed or suspected to have Coronavirus / COVID-19? No / Unsure 07/12/2021 9:49 AM IMAGING SYSTEM ADMINISTRATOR documented as of this encounter Plan of Treatment Upcoming Encounters Date Type Department Care Team (Latest Contact Info) Description 11/13/2024 3:00 PM CDT Appointment [facility] [address] [place] [address] [place] [address] [facility]. [address] [place] [address] 11/20/2024 8:40 AM CDT Hospital Encounter [facility] Interventional [place] [address] [phone] Carolyn Fernando MD Three [facility] [address] [place] [address] 11/20/2024 8:40 AM CDT - 11/20/2024 9:00 AM CDT Surgery [facility] [place] [address] [id number] Carolyn Fernando MD Three [facility] [address] [place] [address] BLOCK SACROILIAC JOINT 12/05/2024 1:20 PM CDT Office Visit [facility] Medical Group Orthopedic Surgery-[place] [address] [place] [address] [place] [address] [place] [address] 01/31/2025 1:20 PM CDT Office Visit [facility] Medical Group Family & Internal Medicine [facility] [address] [place] [phone] [place] [address] [facility] [address] [place] [address] Scheduled Procedures Name Priority Associated Diagnoses Date/Ti me BLOCK SACROILIAC JOINT SI joint arthritis 11/20/2024 8:40 AM CDT documented as of this encounter Visit Diagnoses Not on filedocumented in this encounter Additional Health Concerns Infection Onset Date Last Indicated Resolved Time COVID-19 Rule Out 09/08/2021 09/08/2021 09/08/2021 10:37 AM IMAGING SYSTEM ADMINISTRATOR documented as of this encounter Care Teams Credit Department Manager Relationship Specialty Start Date End Date Vanessa Ogden MD PCP - General INTERNAL MEDICINE 08/14/18 08/10/22 [place] [address] [facility]. [address] [place] [address] PCP - General FAMILY PRACTICE 08/11/22 Jordan Castro MD 6812 [facility] [address] [address] Surgeon ORTHOPAEDIC SURGERY 01/13/20 documented as of this encounter
--- OUTSIDE RECORDS SUMMARY | 2024-11-08 10:54 | XMS_ITS | Encounter Summary ---
Author Organization [facility] Address [address] [place] [address] Care Team Providers Care Street Sweeper Name Role Phone Vanessa Ogden MD Primary Care Provider [phone] Jordan Castro MD Unavailable [phone] Soila Neumann MD Primary Care Provider [phone] Encounter Details Date Type Department Care Team (Late st Contact Info) Description 03/12/2020 Crisp[employer] Message Enc [facility] Medical Group Family [facility] [address] [place] [phone] [facility] Provider Appointment Social History Tobacco Use Types Packs/Day Years Used Date Smoking Tobacco: Never Smokeless Tobacco: Never Alcohol Use Standard Drinks/Week Comments Yes 0 (1 standard drink = 0.6 oz pur e alcohol) Rare use PHQ-2 Answer Date Recorded PHQ-2 Score 0 09/28/2018 Comments No Sex and Gender Information Value Date Recorded Sex Assigned at Female 06/28/2021 1:39 PM E COMMERCE ARCHITECT Legal Sex Female 3:51 PM E COMMERCE ARCHITECT Gender Identity Female 06/28/2021 1:39 PM E COMMERCE ARCHITECT Sexual Orientation Straight 06/28/2021 1: 39 PM E COMMERCE ARCHITECT COVID-19 Exposure Response Date Recorded In the last month, have you been in contact with someone who was confirmed or suspected to have Coronavirus / COVID-19? No / Unsure 02/21/2020 3:15 PM CDT documented as of this encounter Plan of Treatment Upcoming Encounters Date Type Department Care Team (Latest Contact Info) Description 11/13/2024 3:00 PM CDT Appointment [facility] [address] [place] [address] [place] [address] [facility]. [address] [place] [address] 11/20/2024 8:40 AM CDT Hospital Encounter [facility] Interventional [place] [address] [id number] Carolyn Fernando MD Three [facility] [address] [place] [address] 11/20/2024 8:40 AM CDT - 11/20/2024 9:00 AM CDT Surgery [facility] Interventional Pain [place] [address] [id number] Carolyn Fernando MD Three [facility] [address] [place] [address] BLOCK SACROILIAC JOINT 12/05/2024 1:20 PM CDT Office Visit [facility] Orthopedic Surgery[place] [address] [place] [address] [place] [address] [place] [address] 01/31/2025 1:20 PM CDT Office Visit [facility] Medical [facility] Family & [facility] [address] [place] [address] [place] [address] [facility]. [address] [place] [address] Scheduled Procedures Name Priority Associated Diagnoses Date/Ti me BLOCK SACROILIAC JOINT SI joint arthritis 11/20/2024 8:40 AM CDT documented as of this encounter Visit Diagnoses Not on filedocumented in this encounter Additional Health Concerns Infection Onset Date Last Indicated Resolved Time COVID-19 Rule Out 09/08/2021 09/08/2021 09/08/2021 10:37 AM E COMMERCE ARCHITECT documented as of this encounter Care Teams Street Sweeper Relationship Specialty Start Date End Date Vanessa Ogden MD PCP - General INTERNAL MEDICINE 08/14/18 08/10/22 [place] [address] [facility]. [address] [place] [address] PCP - General FAMILY PRACTICE 08/11/22 Jordan Castro MD 6812 [facility] [address] [facility] [address] [place] [address] Surgeon ORTHOPAEDIC SURGERY 01/13/20 documented as of this encounter
--- OUTSIDE RECORDS SUMMARY | 2024-11-08 10:54 | XMS_ITS | Encounter Summary ---
Author Organization [facility] Address [address] [place] [address] Care Team Providers Care Magazine Hand Name Role Phone Vanessa Ogden MD Primary Care Provider [phone] Jordan Castro MD Unavailable [phone] Soila Neumann MD Primary Care Provider [phone] Encounter Details Date Type Department Care Team (Late st Contact Info) Description 10/21/2019 MyChart Message Enc [facility] Medical Group Family & Internal Medicine [facility] [address] [place] [phone] [place] [address] [place] [address] RE: Follow Up/Update Social History Tobacco Use Types Packs/Day Years Used Date Smoking Tobacco: Never Smokeless Tobacco: Never Alcohol Use Standard Drinks/Week Comments Yes 0 (1 standard drink = 0.6 oz pur e alcohol) Rare use PHQ-2 Answer Date Recorded PHQ-2 Score 0 09/28/2018 Comments No Sex and Gender Information Value Date Recorded Sex Assigned at Female 06/28/2021 1:39 PM HAIRSPRING SETTER Legal Sex Female 3:51 PM HAIRSPRING SETTER Gender Identity Female 06/28/2021 1:39 PM HAIRSPRING SETTER Sexual Orientation Straight 06/28/2021 1: 39 PM HAIRSPRING SETTER documented as of this encounter Plan of Treatment Upcoming Encounters Date Type Department Care Team (Latest Contact Info) Description 11/13/2024 3:00 PM CDT Appointment [facility] [address] [place] [address] [place] [address] [facility]. [address] [place] [address] 11/20/2024 8:40 AM CDT Hospital Encounter [facility] Interventional [place] [address] [phone] Carolyn Fernando MD Three [facility] [address] [place] [address] 11/20/2024 8:40 AM CDT - 11/20/2024 9:00 AM CDT Surgery [facility] Interventional Pain [place] [address] [phone] Carolyn Fernando MD Three [facility] [address] [place] [address] BLOCK SACROILIAC JOINT 12/05/2024 1:20 PM CDT Office Visit [facility] Orthopedic Surgery-[place] [address] [place] [address] [place] [address] [place] [address] 01/31/2025 1:20 PM CDT Office Visit [facility] Medical [facility] Family & Internal Medicine [facility] [address] [place] [phone] [place] [address] [facility]. [address] [place] [address] Scheduled Procedures Name Priority Associated Diagnoses Date/Ti me BLOCK SACROILIAC JOINT SI joint arthritis 11/20/2024 8:40 AM CDT documented as of this encounter Visit Diagnoses Not on filedocumented in this encounter Additional Health Concerns Infection Onset Date Last Indicated Resolved Time COVID-19 Rule Out 09/08/2021 09/08/2021 09/08/2021 10:37 AM HAIRSPRING SETTER documented as of this encounter Care Teams Magazine Hand Relationship Specialty Start Date End Date Vanessa Ogden MD PCP - General INTERNAL MEDICINE 08/14/18 08/10/22 [place] [address] [facility]. [address] [place] [address] PCP - General FAMILY PRACTICE 08/11/22 Jordan Castro MD 6812 [facility] [address] [facility] 123 [place] [address] Surgeon ORTHOPAEDIC SURGERY 01/13/20 documented as of this encounter
--- OUTSIDE RECORDS SUMMARY | 2024-11-08 10:54 | XMS_ITS | Encounter Summary ---
Author Organization [facility] Address [address] [place] [address] Care Team Providers Care Career Portals Teacher Name Role Phone Jordan Castro MD Unavailable [phone] Soila Neumann MD Primary Care Provider [phone] Encounter Details Date Type Department Care Team (Late st Contact Info) Description 07/24/2023 Orions Systems Message Enc [facility] Medical Group Family & Internal Medicine [facility] [address] [place] [address] [place] [address] [place] [address]. [address] [place] [address] todays appointment Social History Tobacco Use Types Packs/Day Years Used Date Smoking Tobacco: Never Smokeless Tobacco: Never Comments:na Alcohol Use Standard Drinks/Week Comments Yes 0 [...] Date Recorded Patient Health Questionnaire-2 Score 0 01/09/2023 Comments No Sex and Gender Information Value Date Recorded Sex Assigned at Female 06/28/2021 1:39 PM MUCKER OPERATOR Legal Sex Female 3:51 PM MUCKER OPERATOR Gender Identity Female 06/28/2021 1:39 PM MUCKER OPERATOR Sexual Orientation Straight 06/28/2021 1: 39 PM MUCKER OPERATOR Occupation Industry Job Start Date Job End Date RETIRED Not on file Not on file Not on file documented as of this encounter Progress Notes * Gilma Barreto RN - 07/25/2023 8:36 AM CST Pt was rescheduled to today due to weather ER OPERATOR documented in this encounter Plan of Treatment Upcoming Encounters Date Type Department Care Team (Latest Contact Info) Description 11/13/2024 3:00 PM CDT Appointment [facility] [address] [place] [address] [place] [address] [facility]. [address] [place] [address] 11/20/2024 8:40 AM CDT Hospital Encounter [facility] Interventional [place] [address] [id number] Carolyn Fernando MD Three [facility] [address] [place] [address] 11/20/2024 8:40 AM CDT - 11/20/2024 9:00 AM CDT Surgery [facility] Interventional [place] [address] [phone] Carolyn Fernando MD Three [facility] [address] [place] [address] BLOCK SACROILIAC JOINT 12/05/2024 1:20 PM CDT Office Visit [facility] Medical Group Orthopedic Surgery-[place] [address] [place], [place] [address] [place] [address] [place] [address] 01/31/2025 1:20 PM CDT Office Visit [facility] Medical Group Family & Internal Medicine [facility] [address] [place] [phone] [place] [address] [facility]. [address] [place] [address] Scheduled Procedures Name Priority Associated Diagnoses Date/Ti me BLOCK SACROILIAC JOINT SI joint arthritis 11/20/2024 8:40 AM CDT documented as of this encounter Visit Diagnoses Not on filedocumented in this encounter Additional Health Concerns Assessment Noted Time PHQ-9 Depression Total Score: 2 08/03/19 2:16 PM MUCKER OPERATOR documented as of this encounter Care Teams Career Portals Teacher Relationship Specialty [place] [address] [facility]. [address] [place] [address] PCP - General FAMILY PRACTICE 08/11/22 Jordan Castro MD 6812 [facility] [address] [facility] [address] [place] [address] Surgeon ORTHOPAEDIC SURGERY 01/13/20 documented as of this encounter
--- OUTSIDE RECORDS SUMMARY | 2024-11-08 10:54 | XMS_ITS | Encounter Summary ---
Author Organization [facility] Address [address] [place] [address] Care Team Providers Care Classification Counselor Name Role Phone Jordan Castro MD Unavailable [phone] Soila Neumann MD Primary Care Provider [phone] Encounter Details Date Type Department Care Team (Late st Contact Info) Description 09/13/2022 Solid Information Technologyt Message Enc [facility] Medical Group Family & Internal Medicine [facility] [address] [place] [phone] [place] Ogden [place] [phone] [place] [address] [address] [address] Vergara/heart monitor Social History Tobacco Use Types Packs/Day Years [...] Date Recorded Patient Health Questionnaire-2 Score 0 08/03/2022 Comments No Sex and Gender Information Value Date Recorded Sex Assigned at Female 06/28/2021 1:39 PM SHAPE BRICK MOLDER Legal Sex Female 3:51 PM SHAPE BRICK MOLDER Gender Identity Female 06/28/2021 1:39 PM SHAPE BRICK MOLDER Sexual Orientation Straight 06/28/2021 1: 39 PM SHAPE BRICK MOLDER Occupation Industry Job Start Date Job End Date RETIRED Not on file Not on file Not on file documented as of this encounter Plan of Treatment Upcoming Encounters Date Type Department Care Team (Latest Contact Info) Description 11/13/2024 3:[address] [facility] [address] [place] [address] [place] [address] [facility]. [address] [place] [phone] 11/20/2024 8:40 AM CDT Hospital Encounter [facility] Interventional [place] [address] [phone] Carolyn Fernando MD Three [facility] [address] [place] [address] 11/20/2024 8:40 AM CDT - 11/20/2024 9:00 AM CDT Surgery [facility] Interventional [place] [address] [phone] Carolyn Fernando MD Three [facility] [address] [place] [address] BLOCK SACROILIAC JOINT 12/05/2024 1:20 PM CDT [facility] [address] [place] [address] [place] [address] [place], [place] [address] 01/31/2025 1:20 PM CDT Office Visit [facility] Family & Internal Medicine [facility] [address] [place] [address] [place] [address] [address] [place] [address] Scheduled Procedures Name Priority Associated Diagnoses Date/Ti me BLOCK SACROILIAC JOINT SI joint arthritis 11/20/2024 8:40 AM CDT documented as of this encounter Visit Diagnoses Not on filedocumented in this encounter Additional Health Concerns Assessment Noted Time PHQ-9 Depression Total Score: 2 08/03/19 23 2:16 PM SHAPE BRICK MOLDER documented as of this encounter Care Teams Classification Counselor Relationship Specialty [place] [address] [address] [place] [address] PCP - General FAMILY PRACTICE 08/11/22 Jordan Castro MD 6812 [facility] [address] [place] [address] Surgeon ORTHOPAEDIC SURGERY 01/13/20 documented as of this encounter
--- OUTSIDE RECORDS SUMMARY | 2024-11-08 10:54 | XMS_ITS | Encounter Summary ---
Author Organization [facility] Address [address] [place] [address] Care Team Providers Care Will Call Clerk Name Role Phone Vanessa Ogden MD Primary Care Provider [phone] Jordan Castro MD Unavailable Soila Neumann MD Primary Care Provider [phone] Encounter Details Date Type Department Care Team (Late st Contact Info) Description 11/02/2021 MyCInvoiceablet Message Enc [facility] Medical Group Family & Internal Medicine [facility] [address] [place] [address] [place] Ogden [place] [address] [place] [address] IDPH medical cannabis renewal has changed Social History Tobacco Use Types Packs/Day Years [...] please move on to questions 3-9 0 09/08/2021 Comments No Sex and Gender Information Value Date Recorded Sex Assigned at Female 06/28/2021 1:39 PM EXPERIMENTAL PHYSICIST Legal Sex Female 3:51 PM EXPERIMENTAL PHYSICIST Gender Identity Female 06/28/2021 1:39 PM EXPERIMENTAL PHYSICIST Sexual Orientation Straight 06/28/2021 1: 39 PM EXPERIMENTAL PHYSICIST Occupation Industry Job Start Date Job End Date RETIRED Not on file Not on file Not on file COVID-19 Exposure Response Date Recorded In the last 10 days, have yo u been in contact with someone who was confirmed or suspected to have Coronavirus/COVID-19? No / Unsure 10/04/2021 3:04 PM CDT documented as of this encounter Plan of Treatment Upcoming Encounters Date Type Department Care Team (Latest Contact Info) Description 11/13/2024 3:00 PM CDT Appointment [facility] [address] [place] [address] [place] [address] [facility]. [address] [place] [address] 11/20/2024 8:40 AM CDT Hospital Encounter [facility] [place] [place] [address] [id number] Carolyn Fernando MD Three [facility] [address] [place] [address] 11/20/2024 8:40 AM CDT - 11/20/2024 9:00 AM CDT Surgery [facility] Interventional [place] [address] [id number] Carolyn Fernando MD Three [facility] [address] [place] [address] BLOCK SACROILIAC JOINT 12/05/2024 1:20 PM CDT Office Visit [facility] Medical Group Orthopedic Surgery-[place] [address] [place] [address] [place] [address] [place] [address] 01/31/2025 1:20 PM CDT Office Visit [facility] Medical Group Family & Internal Medicine [facility] [address] [place] [address] [place] [address] [facility] [address]. [address] [place] [address] Scheduled Procedures Name Priority Associated Diagnoses Date/Ti me BLOCK SACROILIAC JOINT SI joint arthritis 11/20/2024 8:40 AM CDT documented as of this encounter Visit Diagnoses Not on filedocumented in this encounter Additional Health Concerns Assessment Noted Time PHQ-9 Depression Total Score: 3 09/09/19 22 9:29 AM EXPERIMENTAL PHYSICIST documented as of this encounter Care Teams Will Call Clerk Relationship Specialty Start Date End Date Vanesas Ogden MD PCP - General INTERNAL MEDICINE 08/14/18 08/10/22 [place] [address] [facility] [address]. [address] [place] [address] PCP - General FAMILY PRACTICE 08/11/22 Jordan Castro MD [address]12 [facility] [address] [address] Surgeon ORTHOPAEDIC SURGERY 01/13/20 documented as of this encounter
--- OUTSIDE RECORDS SUMMARY | 2024-11-08 10:54 | XMS_ITS | Encounter Summary ---
Author Organization [facility] Address [address] [place] [address] Care Team Providers Care Plate Keeper Name Role Phone Vanessa Ogden MD Primary Care Provider [phone] Jordan Castro MD Unavailable Soila Neumann MD Primary Care Provider [phone] Encounter Details Date Type Department Care Team (Late st Contact Info) Description 08/30/2021 Love Home Swapt Message Enc [facility] Medical Group Family & Internal Medicine [facility] [address] [place] [address] [place] [address] [place] [address] Addendum to email request 08/30/21 Social History Tobacco Use Types Packs/Day Years [...] Sex Assigned at Female 06/28/2021 1:39 PM PRACTICE ADVISOR Legal Sex Female 3:51 PM PRACTICE ADVISOR Gender Identity Female 06/28/2021 1:39 PM PRACTICE ADVISOR Sexual Orientation Straight 06/28/2021 1: 39 PM PRACTICE ADVISOR Occupation Industry Job Start Date Job End Date RETIRED Not on file Not on file Not on file COVID-19 Exposure Response Date Recorded In the last 10 days, have yo u been in contact with someone who was confirmed or suspected to have Coronavirus/COVID-19? No / Unsure 08/13/2021 11:10 AM PRACTICE ADVISOR documented as of this encounter Plan of Treatment Upcoming Encounters Date Type Department Care Team (Latest Contact Info) Description 11/13/2024 3:00 PM CDT Appointment [facility] [address] [place] [address] [place] [address] [facility]. [address] [place] [address] 11/20/2024 8:40 AM CDT Hospital Encounter [facility] Interventional [place] [address] [id number] Carolyn Fernando MD Three [address] [address] 11/20/2024 8:40 AM CDT - 11/20/2024 9:00 AM CDT Surgery [facility] Interventional [place] [address] [id number] Carolyn Fernando MD Three [facility] [address] [place] [address] BLOCK SACROILIAC JOINT 12/05/2024 1:20 PM CDT Office Visit [facility] Medical Group Orthopedic Surgery-[place] [address] [address] [place] [address] [place] [address] [place] [address] 01/31/2025 1:20 PM CDT Office Visit [facility] Medical Group Family & Internal Medicine [facility] [address] [place] [address] [place] [address] [facility]. [address] [place] [address] Scheduled Procedures Name Priority Associated Diagnoses Date/Ti me BLOCK SACROILIAC JOINT SI joint arthritis 11/20/2024 8:40 AM CDT documented as of this encounter Visit Diagnoses Not on filedocumented in this encounter Additional Health Concerns Infection Onset Date Last Indicated Resolved Time COVID-19 Rule Out 09/08/2021 09/08/2021 09/08/2021 10:37 AM PRACTICE ADVISOR documented as of this encounter Care Teams Plate Keeper Relationship Specialty Start Date End Date Vanessa Ogden MD PCP - General INTERNAL MEDICINE 08/14/18 08/10/22 [place] [address] [facility] [address] [place] [address] PCP - General FAMILY PRACTICE 08/11/22 Jordan Castro MD [address]12 [facility] [address] [facility] [address] [place] [address] Surgeon ORTHOPAEDIC SURGERY 01/13/20 documented as of this encounter
--- OUTSIDE RECORDS SUMMARY | 2024-11-08 10:54 | XMS_ITS | Encounter Summary ---
Author Organization [facility] Address [address] [place] [address] Care Team Providers Care Disk Sharpener Name Role Phone Vanessa Ogden MD Primary Care Provider [phone] Jordan Castro MD Unavailable [phone] Soila Neumann MD Primary Care Provider [phone] Encounter Details Date Type Department Care Team (Late st Contact Info) Description 02/21/2020 [employer] Message [employer] [facility] Medical Group Family & Internal Medicine [facility] [address] [place] [address] [place] [address] [place] [address] RE: Test Results Social History Tobacco Use Types Packs/Day Years Used Date Smoking Tobacco: Never Smokeless Tobacco: Never Alcohol Use Standard Drinks/Week Comments Yes 0 (1 standard drink = 0.6 oz pur e alcohol) Rare use PHQ-2 Answer Date Recorded PHQ-2 Score 0 09/28/2018 Comments No Sex and Gender Information Value Date Recorded Sex Assigned at Female 06/28/2021 1:39 PM DEPORTATION OFFICER Legal Sex Female 3:51 PM DEPORTATION OFFICER Gender Identity Female 06/28/2021 1:39 PM DEPORTATION OFFICER Sexual Orientation Straight 06/28/2021 1: 39 PM DEPORTATION OFFICER COVID-19 Exposure Response Date Recorded In the last month, have you been in contact with someone who was confirmed or suspected to have Coronavirus / COVID-19? No / Unsure 02/21/2020 3:15 PM CDT documented as of this encounter Plan of Treatment Upcoming Encounters Date Type Department Care Team (Latest Contact Info) Description 11/13/2024 3:[address] [facility] [address] [place], [place] [id number] [place] [address] [facility]. [address] [place] [id number] 11/20/2024 8:40 AM CDT Hospital Encounter [facility] Interventional Pain [place] [address] [id number] Carolyn Fernando MD Three [facility] [address] [place] [address] 11/20/2024 8:40 AM CDT - 11/20/2024 9:00 AM CDT Surgery [facility] [place] [address] [id number] Carolyn Fernando MD Three [facility] [address] [place] [address] BLOCK SACROILIAC JOINT 12/05/2024 1:20 PM CDT Office Visit [facility] Orthopedic Surgery-[place] [address] [place] [address] [place] [address] [place] [address] 01/31/2025 1:20 PM CDT Office Visit [facility] Family & Internal Medicine [facility] [address] [place] [address] [place] [address] [facility]. [address] [place] [address] [id number] Scheduled Procedures Name Priority Associated Diagnoses Date/Ti me BLOCK SACROILIAC JOINT SI joint arthritis 11/20/2024 8:40 AM CDT documented as of this encounter Visit Diagnoses Not on filedocumented in this encounter Additional Health Concerns Infection Onset Date Last Indicated Resolved Time COVID-19 Rule Out 09/08/2021 09/08/2021 09/08/2021 10:37 AM DEPORTATION OFFICER documented as of this encounter Care Teams Disk Sharpener Relationship Specialty Start Date End Date Vanessa Ogden MD PCP - General INTERNAL MEDICINE 08/14/18 08/10/22 [place] [address] [facility] [address] [place] [address] PCP - General FAMILY PRACTICE 08/11/22 Jordan Castro MD 6812 [facility] [address] [facility] [address] [place] [address] Surgeon ORTHOPAEDIC SURGERY 01/13/20 documented as of this encounter
--- OUTSIDE RECORDS SUMMARY | 2024-11-08 10:54 | XMS_ITS | Encounter Summary ---
Author Organization [facility] Address [address] [place] [address] Care Team Providers Care Survey Party Chief Name Role Phone Vanessa Ogden MD Primary Care Provider [phone] Jordan Castro MD Unavailable [phone] Soila Neumann MD Primary Care Provider [phone] Encounter Details Date Type Department Care Team (Late st Contact Info) Description 10/30/2021 Soricimedt Message Enc [facility] Medical Group Family & Internal Medicine [facility] [address] [place] [address] Vanessa Ogden [place] [id number] [place] [address] Medical Cannabis renewal- Social History Tobacco Use Types Packs/Day Years [...] Sex Assigned at Female 06/28/2021 1:39 PM FIRST PRESS OPERATOR Legal Sex Female 3:51 PM FIRST PRESS OPERATOR Gender Identity Female 06/28/2021 1:39 PM FIRST PRESS OPERATOR Sexual Orientation Straight 06/28/2021 1: 39 PM FIRST PRESS OPERATOR Occupation Industry Job Start Date Job [...] Info) Description 11/13/2024 3:00 PM CDT Appointment [facility] [address] [place] [address] [place] [address] [facility]. [address] [place] [address] 11/20/2024 8:40 AM CDT Hospital Encounter [facility] Interventional [place] [address] [id number] Carolyn Fernando MD Three [facility] [address] [place] [address] 11/20/2024 8:40 AM CDT - 11/20/2024 9:00 AM CDT Surgery [facility] Interventional [place] [address] [id number] Carolyn Fernando MD Three [facility] [address] [place] [address] BLOCK SACROILIAC JOINT 12/05/2024 1:20 PM CDT Office Visit [facility] Medical Group Orthopedic Surgery-[place] [address] [place] [address] [place] [address] [place] [address] 01/31/2025 1:20 PM CDT Office Visit [facility] Medical Group Family & Internal Medicine [facility] [address] [place] [address] [place] [address] [facility]. [address] [place] [address] Scheduled Procedures Name Priority Associated Diagnoses Date/Ti me BLOCK SACROILIAC JOINT SI joint arthritis 11/20/2024 8:40 AM CDT documented as of this encounter Visit Diagnoses Not on filedocumented in this encounter Additional Health Concerns Assessment Noted Time PHQ-9 Depression Total Score: 3 09/09/19 22 9:29 AM FIRST PRESS OPERATOR documented as of this encounter Care Teams Survey Party Chief Relationship Specialty Start Date End Date Vanessa Ogden MD PCP - General INTERNAL MEDICINE 08/14/18 08/10/22 [place] [address] [facility] [address]. [address] [place] [address] PCP - General FAMILY PRACTICE 08/11/22 Jordan Castro MD 6812 [facility] [address] [facility] [address] [place] [address] Surgeon ORTHOPAEDIC SURGERY 01/13/20 documented as of this encounter
--- OUTSIDE RECORDS SUMMARY | 2024-11-08 10:54 | XMS_ITS | Encounter Summary ---
Author Organization [facility] Address [address] [place] [address] Care Team Providers Care Hospital Staff Pharmacist Name Role Phone Vanessa Ogden MD Primary Care Provider [phone] Jordan Castro MD Unavailable [phone] Soila Neumann MD Primary Care Provider [phone] Encounter Details Date Type Department Care Team (Late st Contact Info) Description 11/04/2021 [employer] Message Enc [facility] Medical Group Family & Internal Medicine [facility] [address] [place] [address] [place] Ogden [place] [address] [place] [address] prior email to you Social History Tobacco Use Types Packs/Day Years [...] Sex Assigned at Female 06/28/2021 1:39 PM PHYSICIAN NEONATOLOGY Legal Sex Female 3:51 PM PHYSICIAN NEONATOLOGY Gender Identity Female 06/28/2021 1:39 PM PHYSICIAN NEONATOLOGY Sexual Orientation Straight 06/28/2021 1: 39 PM PHYSICIAN NEONATOLOGY Occupation Industry Job Start Date Job End Date RETIRED Not on file Not on file Not on file documented as of this encounter Plan of Treatment Upcoming Encounters Date Type Department Care Team (Latest Contact Info) Description 11/13/2024 3:00 PM CDT Appointment [facility] [address] [place] [address] [place] [address] [facility]. [address] [place] [address] 11/20/2024 8:40 AM CDT Hospital Encounter [facility] Interventional [place] [address] [id number] Carolyn Fernando MD Three [facility] [address] [place] [address] 11/20/2024 8:40 AM CDT - 11/20/2024 9:00 AM CDT Surgery [facility] Interventional [place] [address] [id number] Carolyn Fernando MD Three [facility] [address] [place] [address] BLOCK SACROILIAC JOINT 12/05/2024 1:20 PM CDT Office Visit [facility] Medical [facility] Orthopedic Surgery-[place] [address] [place], [place] [address] [place] [address] [place] [address] 01/31/2025 1:20 PM CDT Office Visit [facility] Family & Internal Medicine - [place] [address] [place] [address] [place] [address] [facility]. [address] [place] [address] Scheduled Procedures Name Priority Associated Diagnoses Date/Ti me BLOCK SACROILIAC JOINT SI joint arthritis 11/20/2024 8:40 AM CDT documented as of this encounter Visit Diagnoses Not on filedocumented in this encounter Additional Health Concerns Assessment Noted Time PHQ-9 Depression Total Score: 3 09/09/19 22 9:29 AM PHYSICIAN NEONATOLOGY documented as of this encounter Care Teams Hospital Staff Pharmacist Relationship Specialty Start Date End Date Vanessa Ogden MD PCP - General INTERNAL MEDICINE 08/14/18 08/10/22 [place] [address] [address] [place] [address] PCP - General FAMILY PRACTICE 08/11/22 Jordan Castro MD 6812 [facility] [address] [facility] [address] [place] [address] Surgeon ORTHOPAEDIC SURGERY 01/13/20 documented as of this encounter
--- OUTSIDE RECORDS SUMMARY | 2024-11-08 10:54 | XMS_ITS | Encounter Summary ---
Author Organization [facility] Address [address] [place] [address] Care Team Providers Care Mat Tester Name Role Phone Jordan Castro MD Unavailable [phone] Soila Neumann MD Primary Care Provider [phone] Encounter Details Date Type Department Care Team (Late st Contact Info) Description 12/28/2022 [employer] Message Enc [facility] Medical [facility] - [facility] [address] [place], [place] [phone] [facility] Provider Air Quality Message Social History Tobacco Use Types Packs/Day Years [...] Sex Assigned at Female 06/28/2021 1:39 PM AUTOMAT WATCHER Legal Sex Female 3:51 PM AUTOMAT WATCHER Gender Identity Female 06/28/2021 1:39 PM AUTOMAT WATCHER Sexual Orientation Straight 06/28/2021 1: 39 PM AUTOMAT WATCHER Occupation Industry Job Start Date Job End Date RETIRED Not on file Not on file Not on file COVID-19 Exposure Response Date Recorded In the last 10 days, have yo u been in contact with someone who was confirmed or suspected to have Coronavirus/COVID-19? No / Unsure 12/12/2022 2:27 PM CDT documented as of this encounter Plan of Treatment Upcoming Encounters Date Type Department Care Team (Latest Contact Info) Description 11/13/2024 3:[address] [facility] [address] [place], [place] [phone] [place] [address] [facility]. [address] [place] [address] [phone] 11/20/2024 8:40 AM CDT Hospital Encounter [facility] Interventional [place] [address] [id number] Carolyn Fernando MD Three [facility] [address] [place] [address] 11/20/2024 8:40 AM CDT - 11/20/2024 9:00 AM CDT Surgery [facility] [place]ventional [place] [address] [id number] Carolyn Fernando MD Three [facility] [address] [place] [address] BLOCK SACROILIAC JOINT 12/05/2024 1:20 PM CDT Office Visit [facility] Orthopedic Surgery[place] [address] [place] [address] [place] [address] [place], [place] 3[address]30 01/31/2025 1:20 PM CDT Office Visit [facility] Family & Internal Medicine [facility] [address] [place] [address] [place] [address] [address] [place] [address] Scheduled Procedures Name Priority Associated Diagnoses Date/Ti me BLOCK SACROILIAC JOINT SI joint arthritis 11/20/2024 8:40 AM CDT documented as of this encounter Visit Diagnoses Not on filedocumented in this encounter Additional Health Concerns Assessment Noted Time PHQ-9 Depression Total Score: 2 08/03/19 23 2:16 PM AUTOMAT WATCHER documented as of this encounter Care Teams Mat Tester Relationship Specialty [place] [address] [address] [place] [address] PCP - General FAMILY PRACTICE 08/11/22 Jordan Castro MD 6812 [facility] [address] [facility] [address] [place] [address] Surgeon ORTHOPAEDIC SURGERY 01/13/20 documented as of this encounter
--- OUTSIDE RECORDS SUMMARY | 2024-11-08 10:54 | XMS_ITS | Clinical Summary ---
Author Organization [facility] 2 Address [address] [facility] [place] [address] Care Team Providers Care Health Information Tech Name Role Phone Trung Miles MD Unavailable [phone] Soila Neumann MD Primary Care Provider [phone] Allergies Active Allergy Reactions Criticality Noted Date Comments Codeine Other (See comments) Reaction: Vomiting, , , Sulfa (Sulfonamide Antibiotics) Other (See comments),Nausea only,Vomiting Reaction: Hives, , Reaction: Nausea, Vomiting, , Tramadol Other (See comments) Reaction: Confusion, Medications mirtazapine (REMERON) 15 mg tablet take 1 tablet by oral route every day before bedtime 0 0 6 Active Additional Information Patient not taking.Reported on 07/22/2024 losartan (COZAAR) 50 mg tablet take 1 tablet by oral route every day 0 0 6 Active Additional Information Patient not taking.Reported on 07/22/[address] (NexIUM) 40 mg capsule take 1 capsule by oral route every day 0 0 6 Active traZODone (DESYREL) 100 mg tablet take 1 tablet by oral route 2 times every day after meals 0 0 6 Active Additional Information Patient not taking.Reported on 07/22/2024 ferrous sulfate (IRON) 325 mg (65 mg iron) capsule, extended release 0 0 6 Active Additional Information Patient not taking.Reported on 07/22/2024 baclofen (LIORESAL) 10 mg tablet take 1 tablet by oral route 4 times every day 0 0 6 Active Additional Information Patient not taking.Reported on 07/22/2024 CYANOCOBALAMIN /FOLIC ACID (VITAMIN H15-[id number] ACID) 1,000-400 mcg tablet, sublingual 0 0 6 Active calcium carbonate (CALCIUM 600) 1,500 mg (600 mg of elemental calcium) tablet apply by oral route once 0 0 6 Active Additional Information Patient not taking.Reported on 07/22/2024 multivitamin tablet tablet take 1 tablet by oral route every day with food 0 0 6 Active Additional Information Patient not taking.Reported on 07/22/2024 albuterol HFA (PROAIR HFA) 90 mcg/actuation inhaler inhale 2 puff by inhalation route every 4 - 6 hours as needed 0 Inhaler 0 6 Active Additional Information Patient not taking.Reported on 07/22/2024 solifenacin (VESICARE) 10 mg tablet take 1 tablet by oral route every day 0 0 6 Active Additional Information Patient not taking.Reported on 07/22/2024 cholecalcifero l (VITAMIN D3) 2,000 unit capsule 0 0 6 Active estradiol (ESTRACE) 1 mg tablet take 1 tablet by oral route every day 0 0 6 Active triamterene-hy droCHLOROthiaz driss (triamterene-h ydroCHLOROthia zide) 37.5-25 mg per tablet/capsule take 1 capsule by oral route every day 0 0 6 Active Additional Information Patient not taking.Reported on 07/22/2024 meloxicam (MOBIC) 15 mg tablet take 1 tablet by oral route every day 0 0 6 Active Additional Information Patient not taking.Reported on 07/22/2024 amitriptyline (ELAVIL) 25 mg tablet take 1 tablet by oral route every day at bedtime 0 0 6 Active fluticasone-sa lmeterol (ADVAIR DISKUS) 250-50 mcg/dose diskus inhaler inhale 1 puff by inhalation route 2 times every day in the morning and evening approximately 12 hours apart 0 Blister 0 6 Active Additional Information Patient not taking.Reported on 07/22/2024 diltiazem LA (CARDIZEM LA) 240 mg 24 hr tablet take 1 tablet by oral route every day 0 0 6 Active Additional Information Patient not taking.Reported on 07/22/2024 HYDROcodone-ac etaminophen (NORCO) 5-325 mg per tablet take 1 - 2 Tablet by oral route every 4 - 6 hours as needed for pain 0 0 6 Active raNITIdine (ZANTAC) 150 mg tablet take 1 tablet by oral route every bedtime 0 0 6 Active Additional Information Patient not taking.Reported on 07/22/2024 levothyroxine (SYNTHROID, LEVOTHROID) 112 mcg tablet take 1 tablet by oral route every day 90 4 6 Active Additional Information Patient not taking.Reported on 07/22/2024 fluticasone-sa lmeterol (ADVAIR DISKUS) 500-50 mcg/dose diskus inhaler 2 times daily. 6 Active estradiol (VAGIFEM) 10 mcg tablet Insert into the vagina. Active levothyroxine (LEVOXYL) 112 mcg tablet daily 6 Active losartan (COZAAR) 50 mg tablet daily. 6 Active diltiazem LA (MATZIM LA) 240 mg 24 hr tablet daily. Active esomeprazole DR (NexIUM) 20 mg capsule daily 6 Active HYDROcodone-ac etaminophen (NORCO) 7.5-325 mg per tabletIndicati ons:Pain Active mirtazapine (REMERON) 15 mg tablet TAKE 1 TABLET AT BEDTIME. Active traZODone (DESYREL) 100 mg tablet TAKE 1 TABLET AT BEDTIME. Active solifenacin (VESICARE) 5 mg tablet 1 tab daily 6 Active lisinopriL (PRINIVIL,ZEST RIL) 20 mg tablet Take 1 tablet (20 mg total) by mouth daily 0 Active oxybutynin XL (DITROPAN-XL) 10 mg 24 hr tablet Take 1 tablet (10 mg total) by mouth daily 0 Active omeprazole (PriLOSEC) 20 mg capsule 3 Active folic acid (FOLVITE) 1 mg tablet Take 1 tablet (1 mg total) by mouth daily Active gabapentin (NEURONTIN) 400 mg capsule Take 1 capsule (400 mg total) by mouth 3 (three) times a day Active magnesium oxide,aspartat e,citr 400 mg magnesium capsule Take 1 tablet by mouth daily Active ondansetron (ZOFRAN) 8 mg tablet Take 1 tablet (8 mg total) by mouth every 8 (eight) hours as needed for nausea or vomiting Active pravastatin (PRAVACHOL) 10 mg tablet Take 1 tablet (10 mg total) by mouth daily Active cetirizine (ZyrTEC) 10 mg tablet Take 1 tablet (10 mg total) by mouth daily Active apixaban (ELIQUIS) 5 mg tablet Take 1 tablet (5 mg total) by mouth 2 (two) times a day Active amLODIPine (NORVASC) 10 mg tablet Take 1 tablet (10 mg total) by mouth daily Active amiodarone (PACERONE) 100 mg tablet Take 1 tablet (100 mg total) by mouth 3 Active azelastine (ASTELIN) 137 mcg (0.1 %) nasal spray Administer 1 spray into affected nostril(s) daily as needed 0 Active cyclobenzaprin e (FLEXERIL) 5 mg tablet Take 1 tablet (5 mg total) by mouth 3 Active diclofenac epolamine (FLECTOR) 1.3 % Apply 1 patch topically 2 (two) times a day 3 Active naloxone (NARCAN) 4 mg/actuation spray,non-aero yisel Administer 1 spray into affected nostril(s) as needed 4 Active levothyroxine (SYNTHROID) 125 mcg tablet 4 Active fluticasone-um eclidin-vilant er (Trelegy Ellipta) 200-62.5-25 mcg inhaler Inhale 1 puff daily 4 Active diclofenac sodium (VOLTAREN) 1 % gel APPLY 2 GM TOPICALLY FOUR TIMES DAILY 5 Active methylPREDNISo lone (MEDROL DOSEPACK) 4 mg Dosepack FOLLOW PACKAGE DIRECTIONS 4 Active predniSONE (DELTASONE) 5 mg tablet Take 1-2 tablets in the morning everyday as needed. 3 Active Xarelto 20 mg tablet Take 1 tablet (20 mg total) by mouth daily 3 Active insulin syringe-needle U-100 1 mL 29 gauge x 1/2 syringe Use 1 syringe to inject methotrexate subcutaneously every 7 days. (100 syringes/box). 1 Active tolterodine (DETROL) 2 mg tablet Take 1 tablet (2 mg total) by mouth 2 (two) times a day 4 Active benzonatate (TESSALON) 200 mg capsuleIndicat ions:Subacute cough Take 1 capsule (200 mg total) by mouth 3 (three) times a day as needed for cough keep tessalon out of reach of children, especially children under the age of 10, due to possible serious risk such as if ingested by children under the age of 10. 30 capsule 5 Active Active Problems Problem Noted Date Diagnosed Date Bilateral carotid artery stenosis 10/28/2022 Assessment & Plan (11/10/2022 12:36 PM CDT): CTA revealed widely patent bilateral carotid arteries which contradicts most recent ultrasound performed at outside facility. Will have patient scheduled for bilateral carotid artery duplex at our institution and I will call with results. Patient will likely follow-up in 1 year for re-evaluation with bilateral carotid artery duplex Assessment & Plan (10/28/2022 2:54 PM CDT): Patient being evaluated for carotid stenosis. Outside facility duplex with concern for greater than or equal to 70% stenosis to the right ICA and less than 50% stenosis to the left. She denies any current symptoms such as slurred speech amaurosis fugax or stroke symptoms. Seen with Dr. Dr. Trung Miles. Plan: Follow-up with a CTA of the carotids in the next 2 weeks. At aspirin 81 mg daily. Obesity with body mass index 30 or greater 03/30 Assessment & Plan (10/28/2022 2:53 PM CDT): Obesity due to excess calories. Will need to follow a heart healthy diet that is low in saturated fats and high in lean proteins fresh fruits and vegetables. Fibromyalgia 03/24/2016 Irritable bowel syndrome 03/24/2016 Insomnia 03/24/2016 Obesity 03/23/2016 Assessment & Plan (11/10/2022 12:36 PM CDT): Educated patient the importance of maintaining appropriate weight as relates to health benefits. Further management as per primary care provider Gastroesophageal reflux disease 03/23/2016 Bronchial asthma 03/23/2016 Nonalcoholic fatty liver disease 03/23/2016 Lumbago 01/23/2014 Arthralgia of ankle 04/03/2013 Immunizations Immunization Administration Dates Next Due Hep A, Adult 06/10/2016,10/30/2015 Influenza, Quadrivalent, Hig h Dose, Preservative Free, Intrr 04/14/2022,03/30/2021 Influenza, Quadrivalent, Split, Intramuscular Influenza, Quadrivalent, Spl it, Preservative Free, Intramuscular 04/13/2018 Influenza, Trivalent, High D ose, Split, Preservative Free, Intramuscular 03/16/2020,04/12/2019 Influenza, Trivalent, IM (MDV) 10/30/2015 Pneumococcal Conjugate PCV 13 04/13/2018 Pneumococcal Polysaccharide PPV23 10/30/2015 Tdap 10/30/2015 Surgical History Surgery Date Site/Laterality Comments THYROIDECTOMY Thyroidectomy SD APPENDECTOMY Appendectomy - (Added by TW Conv) SD TONSILLECTOMY PRIMARY/SEC ONDARY <AGE 12 Tonsillectomy - (Added by TW Conv) SD TOTAL ABDOMINAL HYSTERECT W/WO RMVL TUBE OVARY Hysterectomy - (Added by TW Conv) SD EXPLORATORY LAPAROTOMY CELIOTOMY W/WO BIOPSY SPX Exploratory Laparotomy - (Added by TW Conv) SD PRTL THYROID LOBECTOMY UN I W/WO ISTHMUSECTOMY Thyroid Surgery Sub-Total Thyroidectomy - (Added by TW Conv) SD HEMORRHOIDECTOMY INTERNAL RUBBER BAND LIGATIONS Hemorrhoidectomy - (Added by TW Conv) EXTRACORPOREAL SHOCK WAVE LITHOTRIPSY Lithotripsy - (Added by TW Conv) SD REPAIR RECTOCELE SEPARATE PROCEDURE Rectocele Repair - (Added by TW Conv) Medical History Medical History Date Comments Gastroesophageal reflux disease GERD Depression Depression Hypertension Hypertension Anxiety disorder Anxiety Body mass index (BMI) of 34. 0-34.9 in adult BMI 34.0-34.9,adult - (Added by TW Conv) Family History Medical History Relation Name Comments Heart attack Father Family history of myocardial infarction - (Added by TW Conv) Hypertension Mother Family history of hypertension - (Added by TW Conv) Stroke Other Family history of cerebrovascular accident (CVA) - Relation: Grandmother (Added by TW Conv) Relation Name Status Comments Father Mother Other Social History Tobacco Use Types Packs/Day Years Used Date Smoking Tobacco: Former Alcohol Use Standard Drinks/Week Comments No 0 (1 standard drink = 0.6 oz pur e alcohol) Comments Unknown Sex and Gender Information Value Date Recorded Sex Assigned at Not on file Legal Sex Female 2:27 AM NAVY FIGHTER PILOT Gender Identity Not on file Sexual Orientation Not on file Obstetrics History Last Filed Vital Signs Vital Sign Reading Time Taken Comments Blood Pressure 107/66 07/22/2024 11:38 AM NAVY FIGHTER PILOT Pulse 82 07/22/2024 12:05 PM NAVY FIGHTER PILOT Temperature 36.6 C (97.9 F) 07/22/2024 11:38 AM NAVY FIGHTER PILOT Respiratory Rate 18 07/22/2024 11:3 8 AM NAVY FIGHTER PILOT Oxygen Saturation 97% 07/22/2024 12: 05 PM NAVY FIGHTER PILOT Inhaled Oxygen Concentration - - Weight 107.8 kg (237 lb 11.2 oz) 2024 11:38 AM NAVY FIGHTER PILOT Height 165.1 cm (5' 5 ) 07/22/2024 11:3 8 AM NAVY FIGHTER PILOT Body Mass Index 39.56 07/22/2024 11:38 AM NAVY FIGHTER PILOT Plan of Treatment Health Maintenance Due Date Last Done Comments Breast Cancer Screening-Mammogram 1951 Colon Cancer Screening-Colonoscopy 1950 Depression Screening 1951 Fall Risk Assessment 1950 Hepatitis C Screening 1951 Hepatitis B Screening 1969 Zoster Vaccine (1 of 2) 2001 Well Visit 65+ 2016 Covid-19 Vaccine (2023-2 5 season) 2024 04/14/2022, 03/23/2021, 09/11/2020, Additional history exists Osteoporosis Screening-Bone Density Scan 11/16/2025 11/17/2023 DTaP/Tdap/Td Vaccine (5 - Td or Tdap) 01/02/2033 01/02/2023, 01/01/2023, 05/17/2017, Additional history exists Pneumococcal vaccine 65+ Completed 018, 04/13/2018, 05/12/2017, Additional history exists Influenza Vaccine Completed 04/07/2024, , 03/30/2021, Additional history exists Insurance MEDICARE [facility] MEDICARE Member Subscriber Plan / Payer (Ef fective 2020-Present) Name:Tabatha Alex L Member ID:[id number] Relation to Subscriber:Self Name:Tabatha Alex L Subscriber ID:[id number] Payer ID:[id number] Group ID:Not on file Type:MEDICARE TRADITIONAL Address: [place] [id number] [facility] [place] [address] MEDICARE [facility] Care Teams Health Information Tech Relationship Specialty [place] [address] [address] [place] [address] PCP - General Family Medicine 12/01/23 Trung Miles MD [address] [facility] [address] [address] Surgeon Vascular Surgery 11/07/22
--- OUTSIDE RECORDS SUMMARY | 2024-11-08 10:54 | XMS_ITS | Encounter Summary ---
Author Organization [facility] Address [address] [place] [address] Care Team Providers Care Mechanical Facilities Technician Name Role Phone Vanessa Ogden MD Primary Care Provider [phone] Jordan Castro MD Unavailable [phone] Soila Neumann MD Primary Care Provider [phone] Encounter Details Date Type Department Care Team (Latest Contact Info) Description 11/13/2021 [email or web address] Message Enc [facility] Medical Group Foot & Ankle Specialists [facility] [address] [place] [address] Ricky Ramsey, DPM [address] [place] [phone] msg [address] Dr[address] Llanos ([facility]) information systems consultant Social History Tobacco Use Types Packs/Day Years [...] Sex Assigned at Female 06/28/2021 1:39 PM SEAT JOINER Legal Sex Female 3:51 PM SEAT JOINER Gender Identity Female 06/28/2021 1:39 PM SEAT JOINER Sexual Orientation Straight 06/28/2021 1: 39 PM SEAT JOINER Occupation Industry Job Start Date Job End Date RETIRED Not on file Not on file Not on file COVID-19 Exposure Response Date Recorded In the last 10 days, have yo u been in contact with someone who was confirmed or suspected to have Coronavirus/COVID-19? No / Unsure 11/10/2021 2:27 PM CDT documented as of this encounter Plan of Treatment Upcoming Encounters Date Type Department Care Team (Latest Contact Info) Description 11/13/2024 3:00 PM CDT Appointment [facility] [address] [facility] [place] [address] [place] [address] [facility]. [address] [place] [phone] 11/20/2024 8:40 AM CDT Hospital Encounter [facility] Interventional [place] [address] [id number] Carolyn Fernando MD [address] [address] 11/20/2024 8:40 AM CDT - 11/20/2024 9:00 AM CDT Surgery [facility] Interventional [place] [address] [id number] Carolyn Fernando MD Three [address] [address] BLOCK SACROILIAC JOINT 12/05/2024 1:20 PM CDT Office Visit [facility] Medical Group Orthopedic Surgery[address] [place], [place] [address] [place] [address] [address] [place] [address] 01/31/2025 1:20 PM CDT Office Visit [facility] Medical Group Family & Internal Medicine [facility] [address] [place] [address] [place] [address] [facility]. [address] [place] [address] Scheduled Procedures Name Priority Associated Diagnoses Date/Ti me BLOCK SACROILIAC JOINT SI joint arthritis 11/20/2024 8:40 AM CDT documented as of this encounter Visit Diagnoses Not on filedocumented in this encounter Additional Health Concerns Assessment Noted Time PHQ-9 Depression Total Score: 3 09/09/19 22 9:29 AM SEAT JOINER documented as of this encounter Care Teams Mechanical Facilities Technician Relationship Specialty Start Date End Date Vanessa Ogden MD PCP - General INTERNAL MEDICINE 08/14/18 08/10/22 [place] [address] [facility]. [address] [place] [address] PCP - General FAMILY PRACTICE 08/11/22 Jordan Castro MD [address] [facility] [address] [facility] [address] [place] [address] Surgeon ORTHOPAEDIC SURGERY 01/13/20 documented as of this encounter
--- OUTSIDE RECORDS SUMMARY | 2024-11-08 10:54 | XMS_ITS | Referral Summary ---
Author Organization [facility] 2 Address [address] [facility] [place] [address] Care Team Providers Care Community Leader Name Role Phone Trung Miles MD Unavailable [phone] Soila Neumann MD Primary Care Provider [phone] Allergies Active Allergy Reactions Criticality Noted Date [...] taking.Reported on 07/22/2024 CYANOCOBALAMIN /FOLIC ACID (VITAMIN [id number] ACID) 1,000-400 mcg tablet, sublingual 0 0 [...] 04/13/2018 Pneumococcal Polysaccharide PPV23 10/30/2015 Tdap 10/30/2015 Social History Tobacco Use Types Packs/Day Years Used Date Smoking Tobacco: Former Alcohol Use Standard Drinks/Week Comments No 0 (1 standard drink = 0.6 oz pur e alcohol) Comments Unknown Sex and Gender Information Value Date Recorded Sex Assigned at Not on file Legal Sex Female 2:27 AM CUSTOMER SOLUTIONS COORDINATOR Gender Identity Not on file Sexual Orientation Not on file Last Filed Vital Signs Vital Sign Reading Time Taken Comments Blood Pressure 107/66 07/22/2024 11:38 AM CUSTOMER SOLUTIONS COORDINATOR Pulse 82 07/22/2024 12:05 PM CUSTOMER SOLUTIONS COORDINATOR Temperature 36.6 C (97.9 F) 07/22/2024 11:38 AM CUSTOMER SOLUTIONS COORDINATOR Respiratory Rate 18 07/22/2024 11:3 8 AM CUSTOMER SOLUTIONS COORDINATOR Oxygen Saturation 97% 07/22/2024 12: 05 PM CUSTOMER SOLUTIONS COORDINATOR Inhaled Oxygen Concentration - - Weight 107.8 kg (237 lb 11.2 oz) 2024 11:38 AM CUSTOMER SOLUTIONS COORDINATOR Height 165.1 cm (5' 5 ) 07/22/2024 11:3 8 AM CUSTOMER SOLUTIONS COORDINATOR Body Mass Index 39.56 07/22/2024 11:38 AM CUSTOMER SOLUTIONS COORDINATOR Plan of Treatment Not on file Insurance MEDICARE [facility] MEDICARE [facility] [place] [address] MEDICARE [facility] Care Teams Community Leader Relationship Specialty [place] [address] [facility] [address] [address] PCP - General Family Medicine 12/01/23 Trung Miles MD [address] [facility] [address] [place] [address] Surgeon Vascular Surgery 11/07/22
--- OUTSIDE RECORDS SUMMARY | 2024-11-08 10:54 | XMS_ITS | Encounter Summary ---
Author Organization [facility] System Address [address] [place] [address] Care Team Providers Care Sausage Stuffer Name Role Phone Vanessa Ogden MD Primary Care Provider [phone] Jordan Castro MD Unavailable [phone] Soila Neumann MD Primary Care Provider [phone] Encounter Details Date Type Department Care Team (Late st Contact Info) Description 08/30/2021 [employer] Message Enc [facility] Medical Group Family & Internal Medicine [facility] [id number] [place] [address] [place] [id number] [place] [address] Refill request: Hydrocodone 7.5/325 Social History Tobacco Use Types Packs/Day Years [...] Sex Assigned at Female 06/28/2021 1:39 PM LEAD INSTALLER Legal Sex Female 3:51 PM LEAD INSTALLER Gender Identity Female 06/28/2021 1:39 PM LEAD INSTALLER Sexual Orientation Straight 06/28/2021 1: 39 PM LEAD INSTALLER Occupation Industry Job Start Date Job End Date RETIRED Not on file Not on file Not on file COVID-19 Exposure Response Date Recorded In the last 10 days, have yo u been in contact with someone who was confirmed or suspected to have Coronavirus/COVID-19? No / Unsure 08/13/2021 11:10 AM LEAD INSTALLER documented as of this encounter Progress Notes * Gilma Barreto RN - 08/30/2021 2:46 PM CST Please advise INSTALLER documented in this encounter Plan of Treatment Upcoming Encounters Date Type Department Care Team (Latest Contact Info) Description 11/13/2024 3:00 PM CDT Appointment [facility] [address] [place] [address] [place] [address] [facility]. [address] [place] [address] 11/20/2024 8:40 AM CDT Hospital Encounter [facility] Interventional [place] [address] [id number] Carolyn Fernando MD Three [facility] [address] [place] [address] 11/20/2024 8:40 AM CDT - 11/20/2024 9:[address] [facility] Interventional [facility] [place] [address] [id number] Carolyn Fernando MD Three [facility] [address] [place] [address] BLOCK SACROILIAC JOINT 12/05/2024 1:20 PM CDT Office Visit [facility] Orthopedic Surgery[place] [address] [place] [address] [place] [address] [place] [address] 01/31/2025 1:20 PM CDT Office Visit [facility] Family & Internal Medicine [facility] [address] [place] [address] [place] [address] [facility]. [address] [place] [phone] Scheduled Procedures Name Priority Associated Diagnoses Date/Ti me BLOCK SACROILIAC JOINT SI joint arthritis 11/20/2024 8:40 AM CDT documented as of this encounter Visit Diagnoses Not on filedocumented in this encounter Additional Health Concerns Infection Onset Date Last Indicated Resolved Time COVID-19 Rule Out 09/08/2021 09/08/2021 09/08/2021 10:37 AM LEAD INSTALLER documented as of this encounter Care Teams Sausage Stuffer Relationship Specialty Start Date End Date Vanessa Ogden MD PCP - General INTERNAL MEDICINE 08/14/18 08/10/22 [place] [address] [facility] [address] [place] [address] PCP - General FAMILY PRACTICE 08/11/22 Jordan Castro MD [address] [facility] [address] [place] [address] Surgeon ORTHOPAEDIC SURGERY 01/13/20 documented as of this encounter
--- OUTSIDE RECORDS SUMMARY | 2024-11-08 10:54 | XMS_ITS | Encounter Summary ---
Author Organization [facility] Address [address] [place] [address] Care Team Providers Care Cover Assembler Name Role Phone Vanessa Ogden MD Primary Care Provider [phone] Jordan Castro MD Unavailable [phone] Soila Neumann MD Primary Care Provider [phone] Encounter Details Date Type Department Care Team (Late st Contact Info) Description 12/27/2019 [employer] Message Enc [facility] Medical Group Family & Internal Medicine [facility] [address] [place] [address] [place] [address] [place] [address] RE: Other Social History Tobacco Use Types Packs/Day Years Used Date Smoking Tobacco: Never Smokeless Tobacco: Never Alcohol Use Standard Drinks/Week Comments Yes 0 (1 standard drink = 0.6 oz pur e alcohol) Rare use PHQ-2 Answer Date Recorded PHQ-2 Score 0 09/28/2018 Comments No Sex and Gender Information Value Date Recorded Sex Assigned at Female 06/28/2021 1:39 PM DIRECTOR TALENT ACQUISITION Legal Sex Female 3:51 PM DIRECTOR TALENT ACQUISITION Gender Identity Female 06/28/2021 1:39 PM DIRECTOR TALENT ACQUISITION Sexual Orientation Straight 06/28/2021 1: 39 PM DIRECTOR TALENT ACQUISITION COVID-19 Exposure Response Date Recorded In the last month, have you been in contact with someone who was confirmed or suspected to have Coronavirus / COVID-19? No / Unsure 12/27/2019 11:09 AM CDT documented as of this encounter Plan of Treatment Upcoming Encounters Date Type Department Care Team (Latest Contact Info) Description 11/13/2024 3:[address] [facility] [address] [place], [place] [id number] [place] [address] [facility]. [address] [place] [id number] 11/20/2024 8:40 AM CDT Hospital Encounter [facility] Interventional [place] [address] [id number] Carolyn Fernando MD Three [facility] [address] [place] [address] 11/20/2024 8:40 AM CDT - 11/20/2024 9:00 AM CDT Surgery [facility] Interventional [place] [address] [id number] Carolyn Fernando MD Three [facility] [address] [place] [address] BLOCK SACROILIAC JOINT 12/05/2024 1:20 PM CDT Office Visit [facility]opedic [facility] [address] [place] [address] [place] [address] [place] [address] 01/31/2025 1:20 PM CDT Office Visit [facility] Family & Internal Medicine [facility] [address] [place] [address] [place] [address] [facility]. [address] [place] [id number] Scheduled Procedures Name Priority Associated Diagnoses Date/Ti me BLOCK SACROILIAC JOINT SI joint arthritis 11/20/2024 8:40 AM CDT documented as of this encounter Visit Diagnoses Not on filedocumented in this encounter Additional Health Concerns Infection Onset Date Last Indicated Resolved Time COVID-19 Rule Out 09/08/2021 09/08/2021 09/08/2021 10:37 AM DIRECTOR TALENT ACQUISITION documented as of this encounter Care Teams Cover Assembler Relationship Specialty Start Date End Date Vanessa Ogden MD PCP - General INTERNAL MEDICINE 08/14/18 08/10/22 [place] [address] [facility] [address] [place] [address] PCP - General FAMILY PRACTICE 08/11/22 Jordan Castro MD 6812 [facility] [address] [facility] [address] [place] [address] Surgeon ORTHOPAEDIC SURGERY 01/13/20 documented as of this encounter
--- OUTSIDE RECORDS SUMMARY | 2024-11-08 10:54 | XMS_ITS | Encounter Summary ---
Author Organization [facility] Address [address] [place] [address] Care Team Providers Care Bumper Straightener Name Role Phone Jordan Castro MD Unavailable [phone] Soila Neumann MD Primary Care Provider [phone] Encounter Details Date Type Department Care Team (Late st Contact Info) Description 08/12/2022 [employer] Message Enc [facility] Family & Internal Medicine [facility] [address] [place] [address] [place] Ogden [place] [address] [place] [address] Referral Social History Tobacco Use Types Packs/Day Years [...] Sex Assigned at Female 06/28/2021 1:39 PM PRE BILLING SPECIALIST Legal Sex Female 3:51 PM PRE BILLING SPECIALIST Gender Identity Female 06/28/2021 1:39 PM PRE BILLING SPECIALIST Sexual Orientation Straight 06/28/2021 1: 39 PM PRE BILLING SPECIALIST Occupation Industry Job Start Date Job End Date RETIRED Not on file Not on file Not on file COVID-19 Exposure Response Date Recorded In the last 10 days, have yo u been in contact with someone who was confirmed or suspected to have Coronavirus/COVID-19? No / Unsure 08/03/2022 1:31 PM PRE BILLING SPECIALIST documented as of this encounter Plan of Treatment Upcoming Encounters Date Type Department Care Team (Latest Contact Info) Description 11/13/2024 3:00 PM CDT Appointment [facility] [address] [place] [address] [place] [address] [facility]. [address] [place] [address] [phone] 11/20/2024 8:40 AM CDT Hospital Encounter [facility] Interventional [place] [address] [id number] Carolyn Fernando MD Three [facility] [address] [place] [address] 11/20/2024 8:40 AM CDT - 11/20/2024 9:00 AM CDT Surgery [facility] Interventional Pain [place] [address] [id number] Carolyn Fernando MD Three [facility] [address] [place] [address] BLOCK SACROILIAC JOINT 12/05/2024 1:20 PM CDT Office Visit [facility] Orthopedic Surgery-Daniel [address] [place] [phone] [place] [address] [place], [place] [id number] 01/31/2025 1:20 PM CDT Office Visit [facility] Family & Internal Medicine [facility] [address] [place] [address] [place] [address] [facility]. [address] [place] [address] Scheduled Procedures Name Priority Associated Diagnoses Date/Ti me BLOCK SACROILIAC JOINT SI joint arthritis 11/20/2024 8:40 AM CDT documented as of this encounter Visit Diagnoses Not on filedocumented in this encounter Additional Health Concerns Assessment Noted Time PHQ-9 Depression Total Score: 2 08/03/19 2:16 PM PRE BILLING SPECIALIST documented as of this encounter Care Teams Bumper Straightener Relationship Specialty [place] [address] [facility]. [address] [place] [address] PCP - General FAMILY PRACTICE 08/11/22 Jordan Castro MD 6812 [facility] [address] [address] Surgeon ORTHOPAEDIC SURGERY 01/13/20 documented as of this encounter
--- OUTSIDE RECORDS SUMMARY | 2024-11-08 10:54 | XMS_ITS | Encounter Summary ---
Author Organization [facility] Address [address] [place] [address] Care Team Providers Care Tow Boat Captain Name Role Phone Vanessa Ogden MD Primary Care Provider [phone] Jordan Castro MD Unavailable [phone] Soila Neumann MD Primary Care Provider [phone] Encounter Details Date Type Department Care Team (Late st Contact Info) Description 02/25/2020 [employer] Message Enc [facility] Medical Group Family & Internal Medicine [facility] [address] [place] [address] [place] Ogden [place] [address] [place] [address] RE: Medication Questions Social History Tobacco Use Types Packs/Day Years Used Date Smoking Tobacco: Never Smokeless Tobacco: Never Alcohol Use Standard Drinks/Week Comments Yes 0 (1 standard drink = 0.6 oz pur e alcohol) Rare use PHQ-2 Answer Date Recorded PHQ-2 Score 0 09/28/2018 Comments No Sex and Gender Information Value Date Recorded Sex Assigned at Female 06/28/2021 1:39 PM ENERGY EFFICIENCY SPECIALIST Legal Sex Female 3:51 PM ENERGY EFFICIENCY SPECIALIST Gender Identity Female 06/28/2021 1:39 PM ENERGY EFFICIENCY SPECIALIST Sexual Orientation Straight 06/28/2021 1: 39 PM ENERGY EFFICIENCY SPECIALIST COVID-19 Exposure Response Date Recorded In the last month, have you been in contact with someone who was confirmed or suspected to have Coronavirus / COVID-19? No / Unsure 02/21/2020 3:15 PM CDT documented as of this encounter Progress Notes * Gilma Barreto RN - 02/25/2020 10:10 AM CDT Please gilsonestephen ordered and seen documented in this encounter Plan of Treatment Upcoming Encounters Date Type Department Care Team (Latest Contact Info) Description 11/13/2024 3:00 PM CDT Appointment [facility] [address] [place] [address] [place] [address] [facility]. [address] [place] [address] 11/20/2024 8:40 AM CDT Hospital Encounter [facility] Interventional [place] [address] [id number] Carolyn Fernando MD Three [facility] [address] [place] [address] 11/20/2024 8:40 AM CDT - 11/20/2024 9:00 AM CDT Surgery [facility] Interventional Pain [place] [address] [id number] Carolyn Fernando MD Three [facility] [address] [place] [address] BLOCK SACROILIAC JOINT 12/05/2024 1:20 PM CDT Office Visit [facility] Medical Group Orthopedic Surgery-Daniel [address] [place], [place] [address] [place] [address] [place], [place] [address] 01/31/2025 1:20 PM CDT Office Visit [facility] Medical Group Family & Internal Medicine [facility] [address] [place] [address] [place] [address] [facility] [address] [place] [address] Scheduled Procedures Name Priority Associated Diagnoses Date/Ti me BLOCK SACROILIAC JOINT SI joint arthritis 11/20/2024 8:40 AM CDT documented as of this encounter Visit Diagnoses Not on filedocumented in this encounter Additional Health Concerns Infection Onset Date Last Indicated Resolved Time COVID-19 Rule Out 09/08/2021 09/08/2021 09/08/2021 10:37 AM ENERGY EFFICIENCY SPECIALIST documented as of this encounter Care Teams Tow Boat Captain Relationship Specialty Start Date End Date Vanessa Ogden MD PCP - General INTERNAL MEDICINE 08/14/18 08/10/22 [place] [address] [facility] [address] [place] [address] PCP - General FAMILY PRACTICE 08/11/22 Jordan Castro MD 6812 [facility] [address] [facility] [address] [place] [address] Surgeon ORTHOPAEDIC SURGERY 01/13/20 documented as of this encounter
--- OUTSIDE RECORDS SUMMARY | 2024-11-08 10:54 | XMS_ITS | Encounter Summary ---
Author Organization [facility] Address [address] [place] [address] Care Team Providers Care Open Die Inspector Name Role Phone Vanessa Ogden MD Primary Care Provider [phone] Jordan Castro MD Unavailable [phone] Soila Neumann MD Primary Care Provider [phone] Encounter Details Date Type Department Care Team (Late st Contact Info) Description 09/07/2020 Pairy Message [facility] [address] [place] [address] [facility] Provider RE:Lab Results Social History Tobacco Use Types Packs/Day [...] 08/2020 PHQ-2 Answer Date Recorded PHQ-2 Score 0 09/28/2018 Comments No Sex and Gender Information Value Date Recorded Sex Assigned at Female 06/28/2021 1:39 PM HYDROELECTRIC MACHINERY MECHANIC HELPER Legal Sex Female 3:51 PM HYDROELECTRIC MACHINERY MECHANIC HELPER Gender Identity Female 06/28/2021 1:39 PM HYDROELECTRIC MACHINERY MECHANIC HELPER Sexual Orientation Straight 06/28/2021 1: 39 PM HYDROELECTRIC MACHINERY MECHANIC HELPER COVID-19 Exposure Response Date Recorded In the last month, have you been in contact with someone who was confirmed or suspected to have Coronavirus / COVID-19? No / Unsure 09/10/2020 11:25 AM HYDROELECTRIC MACHINERY MECHANIC HELPER documented as of this encounter Progress Notes * Gilma Barreto RN - 09/07/2020 3:20 PM CST VITAMIN B12 S/P/B 193 - 986 PG/ML 1,054High Does pt need to go to monthly B12 injections instead of weekly like she is doing now? Printed to clarify with provider. OELECTRIC MACHINERY MECHANIC HELPER documented in this encounter Plan of Treatment Upcoming Encounters Date Type Department Care Team (Latest Contact Info) Description 11/13/2024 3:00 PM CDT Appointment [facility] [address] [place] [address] [place] [address] [facility]. [address] [place] [address] 11/20/2024 8:40 AM CDT Hospital Encounter [facility] Interventional [place] [address] [id number] Carolyn Fernando MD Three [facility] [address] [place] [address] 11/20/2024 8:40 AM CDT - 11/20/2024 9:00 AM CDT Surgery [facility] Interventional [place] [address] [id number] Carolyn Fernando MD Three [facility] [address] [place] [address] BLOCK SACROILIAC JOINT 12/05/2024 1:20 PM CDT Office Visit [facility] Orthopedic Surgery-Daniel [address] [place] [address] [place] [address] [place] [address] 01/31/2025 1:20 PM CDT Office Visit [facility] Family & Internal Medicine [facility] [address] [place] [address] [place] [address] [facility]. [address] [place] [address] Scheduled Procedures Name Priority Associated Diagnoses Date/Ti me BLOCK SACROILIAC JOINT SI joint arthritis 11/20/2024 8:40 AM CDT documented as of this encounter Visit Diagnoses Not on filedocumented in this encounter Additional Health Concerns Infection Onset Date Last Indicated Resolved Time COVID-19 Rule Out 09/08/2021 09/08/2021 09/08/2021 10:37 AM HYDROELECTRIC MACHINERY MECHANIC HELPER documented as of this encounter Care Teams Open Die Inspector Relationship Specialty Start Date End Date Vanessa Ogden MD PCP - General INTERNAL MEDICINE 08/14/18 08/10/22 [place] [address] [facility]. [address] [place] [address] PCP - General FAMILY PRACTICE 08/11/22 Jordan Castro MD 6812 COUNTS INCLUDE 234 [facility] AT [facility] [address] [place] [address] Surgeon ORTHOPAEDIC SURGERY 01/13/20 documented as of this encounter
--- OUTSIDE RECORDS SUMMARY | 2024-11-08 10:54 | XMS_ITS | Encounter Summary ---
Author Organization [facility] Address [address] [place] [address] Care Team Providers Care Vice President [employer] Name Role Phone Vanessa Ogden MD Primary Care Provider [phone] Jordan Castro MD Unavailable [phone] Soila Neumann MD Primary Care Provider [phone] Encounter Details Date Type Department Care Team (Late st Contact Info) Description 12/30/2021 [employer] Message Enc [facility] Medical Group Family & Internal Medicine [facility] [address] [place] [address] [place] Ogden [place] [address] [place] [address] prior ankle msg Social History Tobacco Use Types Packs/Day Years [...] please move on to questions 3-9 0 12/02/2021 Comments No Sex and Gender Information Value Date Recorded Sex Assigned at Female 06/28/2021 1:39 PM PUMP MECHANIC Legal Sex Female 3:51 PM PUMP MECHANIC Gender Identity Female 06/28/2021 1:39 PM PUMP MECHANIC Sexual Orientation Straight 06/28/2021 1: 39 PM PUMP MECHANIC Occupation Industry Job Start Date Job End Date RETIRED Not on file Not on file Not on file COVID-19 Exposure Response Date Recorded In the last 10 days, have yo u been in contact with someone who was confirmed or suspected to have Coronavirus/COVID-19? No / Unsure 12/02/2021 12:52 PM CDT documented as of this encounter Plan of Treatment Upcoming Encounters Date Type Department Care Team (Latest Contact Info) Description 11/13/2024 3:00 PM CDT Appointment [facility] [address] [place] [address] [place] [address] [facility]. [address] [place] [address] 11/20/2024 8:40 AM CDT Hospital Encounter [facility] Interventional Pain [place] [address] [id number] Carolyn Fernando MD Three [facility] [address] [place] [address] 11/20/2024 8:40 AM CDT - 11/20/2024 9:00 AM CDT Surgery [facility] [place]ventional [place] [address] [id number] Carolyn Fernando MD Three [facility] [address] [place] [address] BLOCK SACROILIAC JOINT 12/05/2024 1:20 PM CDT Office Visit [facility] Medical Group Orthopedic Surgery-Daniel [address] [address] [place] [address] [place] [address] [place] [address] 01/31/2025 1:20 PM CDT Office Visit [facility] Medical Group Family & Internal Medicine [facility] [address] [place] [address] [place] [address] [facility]. [address] [place] [address] Scheduled Procedures Name Priority Associated Diagnoses Date/Ti me BLOCK SACROILIAC JOINT SI joint arthritis 11/20/2024 8:40 AM CDT documented as of this encounter Visit Diagnoses Not on filedocumented in this encounter Additional Health Concerns Assessment Noted Time PHQ-9 Depression Total Score: 3 09/09/19 22 9:29 AM PUMP MECHANIC documented as of this encounter Care Teams Vice President [employer] Relationship Specialty Start Date End Date Vanessa Ogden MD PCP - General INTERNAL MEDICINE 08/14/18 08/10/22 [place] [address] [facility]. [address] [place] [address] PCP - General FAMILY PRACTICE 08/11/22 Jordan Castro MD 6812 [facility] [address] [facility] [address] [place] [address] Surgeon ORTHOPAEDIC SURGERY 01/13/20 documented as of this encounter
--- OUTSIDE RECORDS SUMMARY | 2024-11-08 10:54 | XMS_ITS | Encounter Summary ---
Author Organization [facility] Address [address] [place] [address] Care Team Providers Care Machine Grinder Name Role Phone Vanessa Ogden MD Primary Care Provider [phone] Jordan Castro MD Unavailable [phone] Soila Neumann MD Primary Care Provider [phone] Encounter Details Date Type Department Care Team (Latest Contact Info) Description 09/28/2021 [employer] Message Enc [facility] Medical Group [facility] [place] [address] [place] [address] Ricky Ramsey, DPM 2070 [place] [address] recently new orthotics Social History Tobacco Use Types Packs/Day Years [...] Sex Assigned at Female 06/28/2021 1:39 PM SUPERVISOR SUNGLASSES Legal Sex Female 3:51 PM SUPERVISOR SUNGLASSES Gender Identity Female 06/28/2021 1:39 PM SUPERVISOR SUNGLASSES Sexual Orientation Straight 06/28/2021 1: 39 PM SUPERVISOR SUNGLASSES Occupation Industry Job Start Date Job End Date RETIRED Not on file Not on file Not on file COVID-19 Exposure Response Date Recorded In the last 10 days, have yo u been in contact with someone who was confirmed or suspected to have Coronavirus/COVID-19? No / Unsure 09/10/2021 1:28 PM SUPERVISOR SUNGLASSES documented as of this encounter Plan of Treatment Upcoming Encounters Date Type Department Care Team (Latest Contact Info) Description 11/13/2024 3:00 PM CDT Appointment [facility] [address] [place] [address] [place] [address] [address] [place] [address] 11/20/2024 8:40 AM CDT Hospital Encounter [facility] Interventional [place] [address] [id number] Carolyn Fernando MD Three [facility] [address] [place] [address] 11/20/2024 8:40 AM CDT - 11/20/2024 9:00 AM CDT Surgery [facility] [place] [address] [id number] Carolyn Fernando MD Three [facility] [address] [place] [address] BLOCK SACROILIAC JOINT 12/05/2024 1:20 PM CDT Office Visit [facility] Medical Group Orthopedic Surgery-[facility] [address] [place] [address] [place] [address] [place] [address] 01/31/2025 1:20 PM CDT Office Visit [facility] Medical Group Family & Internal Medicine [facility] [address] [place] [address] [place] [address] [facility]. [address] [place] [address] Scheduled Procedures Name Priority Associated Diagnoses Date/Ti me BLOCK SACROILIAC JOINT SI joint arthritis 11/20/2024 8:40 AM CDT documented as of this encounter Visit Diagnoses Not on filedocumented in this encounter Additional Health Concerns Assessment Noted Time PHQ-9 Depression Total Score: 3 09/09/19 22 9:29 AM SUPERVISOR SUNGLASSES documented as of this encounter Care Teams Machine Grinder Relationship Specialty Start Date End Date Vanessa Ogden MD PCP - General INTERNAL MEDICINE 08/14/18 08/10/22 [place] [address] [facility]. [address] [place] [address] PCP - General FAMILY PRACTICE 08/11/22 Jordan Castro MD 6812 [facility]CLUDES [facility] [address] [address] Surgeon ORTHOPAEDIC SURGERY 01/13/20 documented as of this encounter
--- OUTSIDE RECORDS SUMMARY | 2024-11-08 10:54 | XMS_ITS | Encounter Summary ---
Author Organization [facility] Address [address] [place] [address] Care Team Providers Care Produce Buyer Name Role Phone Jordan Castro MD Unavailable [phone] Soila Neumann MD Primary Care Provider [phone] Encounter Details Date Type Department Care Team (Late st Contact Info) Description 2024 adjustt Message Enc [facility] Family & Internal Medicine [address] [address] [place] [id number] [place] [address]. [address] [place] [address] chest/lung illness Social History Tobacco Use Types Packs/Day Years [...] Sex Assigned at Female 06/28/2021 1:39 PM FOAM RUBBER CURER Legal Sex Female 3:51 PM FOAM RUBBER CURER Gender Identity Female 06/28/2021 1:39 PM FOAM RUBBER CURER Sexual Orientation Straight 06/28/2021 1: 39 PM FOAM RUBBER CURER Occupation Industry Job Start Date Job End Date RETIRED Not on file Not on file Not on file documented as of this encounter Functional Status * Over the past 2 weeks, how often have you been bothered by any of the following problems? Question Answer Date of Assessment Author Status Little interest or pleasure in doing things Not at all 07/11/2024 2:36 PM FOAM RUBBER CURER Alana Azar MA Act norah Feeling down, depressed, or hopeless Not at all 07/11/2024 2:36 PM FOAM RUBBER CURER Alana Azar MA Active Patient Health Questionnaire-2 Score 0 07/11/2024 2:36 PM FOAM RUBBER CURER Alana Azar MA Active documented as of this encounter Plan of Treatment Upcoming Encounters Date Type Department Care Team (Latest Contact Info) Description 11/13/2024 3:00 PM CDT Appointment [facility] [address] [place] [address] [place] [address] [facility]. [address] [place] [address] 11/20/2024 8:40 AM CDT Hospital Encounter [facility] [place]ventional [place] [address] [id number] Carolyn Fernando MD Three [address] [address] 11/20/2024 8:40 AM CDT - 11/20/2024 9:00 AM CDT Surgery [facility] [place] [place] [address] [id number] Carolyn Fernando MD Three [facility] [address] [place] [address] BLOCK SACROILIAC JOINT 12/05/2024 1:20 PM CDT Office Visit [facility] Orthopedic Surgery[place] [address] [place] [address] [place] [address] [place] [address] 01/31/2025 1:20 PM CDT Office Visit [facility] Family & Internal Medicine [facility] [address] [place] [address] [place] [address] [facility]. [address] [place] [address] Scheduled Procedures Name Priority Associated Diagnoses Date/Ti me BLOCK SACROILIAC JOINT SI joint arthritis 11/20/2024 8:40 AM CDT documented as of this encounter Visit Diagnoses Not on filedocumented in this encounter Additional Health Concerns Assessment Noted Time PHQ-9 Depression Total Score: 2 08/03/19 23 2:16 PM FOAM RUBBER CURER documented as of this encounter Care Teams Produce Buyer Relationship Specialty [place] [address] [facility]. [address] [place], [place] [phone] PCP - General FAMILY PRACTICE 08/11/22 Jordan Castro MD [address] [facility] [address] [facility] [address] [place] [address] Surgeon ORTHOPAEDIC SURGERY 01/13/20 documented as of this encounter
--- OUTSIDE RECORDS SUMMARY | 2024-11-08 10:54 | XMS_ITS | Encounter Summary ---
Author Organization [facility] Address [address] [place] [address] Care Team Providers Care Sheet Metal Worker Helper Name Role Phone Vanessa Ogden MD Primary Care Provider [phone] Jordan Castro MD Unavailable [phone] Soila Neumann MD Primary Care Provider [phone] Encounter Details Date Type Department Care Team (Late st Contact Info) Description 09/04/2021 MyCElepagot Message Enc [facility] Family & Internal Medicine [facility] [id number] [place] [address] [place]den [place] [phone] [place] [address] [place] 7.5 refill Social History Tobacco Use Types Packs/Day Years [...] Sex Assigned at Female 06/28/2021 1:39 PM CHICKEN CLEANER Legal Sex Female 3:51 PM CHICKEN CLEANER Gender Identity Female 06/28/2021 1:39 PM CHICKEN CLEANER Sexual Orientation Straight 06/28/2021 1: 39 PM CHICKEN CLEANER Occupation Industry Job Start Date Job End Date RETIRED Not on file Not on file Not on file COVID-19 Exposure Response Date Recorded In the last 10 days, have yo u been in contact with someone who was confirmed or suspected to have Coronavirus/COVID-19? No / Unsure 09/07/2021 11:57 AM CHICKEN CLEANER documented as of this encounter Progress Notes * Tatyana Torres MA - 09/06/2021 3:02 PM CST Appointment scheduled. KEN CLEANER * Vanessa Ogden MD - 09/06/2021 1:28 PM CST On 06/30/21 was given a script for Feb to be filled 08/25/21 or 5 mg bid # 60 (since we were going into warmer weather.) I am not filling controlled substances for call ins. If pharmacy cannot find your script we can perhaps do a virtual phone visit KEN CLEANER * Tatyana Torres MA - 09/06/2021 1:19 PM CST Sent to Dr. Mendez for approval. KEN CLEANER documented in this encounter Plan of Treatment Upcoming Encounters Date Type Department Care Team (Latest Contact Info) Description 11/13/2024 3:00 PM CDT Appointment [facility] [place] [address] [place], [place] [id number] [place] [address] [address] [place], [place] [phone] 11/20/2024 8:40 AM CDT Hospital Encounter [facility] Interventional Pain Management Center [address] [place] [address] [id number] Carolyn Fernando MD Three [facility] [address] [place] [address] 11/20/2024 8:40 AM CDT - 11/20/2024 9:00 AM CDT Surgery [facility] [place] [address] [id number] Carolyn Fernando MD Three [facility] [address] [place] [address] BLOCK SACROILIAC JOINT 12/05/2024 1:20 PM CDT Office Visit [facility] Orthopedic Surgery-Mobile [phone] [place] [address] [place] [address] [place] [address] 01/31/2025 1:20 PM CDT Office Visit [facility] Family & Internal Medicine [address] [address] Soila Neumann MD [address] [place] [address] [place] [address] Scheduled Procedures Name Priority Associated Diagnoses Date/Ti hi BLOCK SACROILIAC JOINT SI joint arthritis 11/20/2024 8:40 AM CDT documented as of this encounter Visit Diagnoses Diagnosis Chronic pain syndrome SI joint arthritis Sacroiliitis, not elsewhere classified documented in this encounter Additional Health Concerns Infection Onset Date Last Indicated Resolved Time COVID-19 Rule Out 09/08/2021 09/08/2021 09/08/2021 10:37 AM CHICKEN CLEANER documented as of this encounter Care Teams Sheet Metal Worker Helper Relationship Specialty Start Date End Date Vanessa Ogden MD PCP - General INTERNAL MEDICINE 08/14/18 08/10/22 [place] [address] [facility] [address] [place] [address] PCP - General FAMILY PRACTICE 08/11/22 Jordan Castro MD [address] [facility] [address] [facility] [address] [place] [address] Surgeon ORTHOPAEDIC SURGERY 01/13/20 documented as of this encounter
--- OUTSIDE RECORDS SUMMARY | 2024-11-08 10:54 | XMS_ITS | Clinical Summary ---
Author Organization [facility] Address [address] [place] [address] Care Team Providers Care Band Salvager Name Role Phone Soila Neumann MD Primary Care Provider [phone] [facility] [employer],non-owned Affiliates and Associated Physician Practices is amultiple site organization consisting of ambulatory clinics and hospital sitesin [place], [place], [place] and [place]. This disclosure is being madepursuant to the Care Everywhere program and may not contain all information available regarding this patient. Last updated 18.[facility] Allergies Active Allergy Reactions Criticality Noted Date Comments Codeine Other,Vomiting Low 08/14/2018 Reaction: Vomiting, , , Fluconazole Other 03/20/2024 Possible facial rash following diflucan 02/23 Sulfa Drugs Itching Low 08/14/2018 Tramadol Psychiatric Medium 07/17/2020 Reaction: Confusion, Reaction: Confusion Medications * Be aware that medications may not be up to date on this document. Alwaysverify current medications with the patient. azelastine (ASTELIN) 0.1 % nasal spray Cocoa 1 (one) spray into each nostril once daily as needed 020 Active cetirizine (ZYRTEC) 10 MG tablet Take 1 (one) tablet by mouth once daily Active estradiol (ESTRACE) 1 MG tablet Take 1 (one) tablet by mouth once daily Active gabapentin (NEURONTIN) 400 MG capsule Take 1 (one) capsule by mouth 5 times daily Takes 0900, 1600, 2100, 0200 (2 at bedtime) Active HYDROcodone-ac etaminophen (NORCO) 7.5-325 MG tablet Take 1 (one) tablet by mouth every 8 hours as needed for Pain Active levothyroxine (SYNTHROID) 125 MCG tablet Take 1 (one) tablet by mouth daily before breakfast Active lisinopril (PRINIVIL; ZESTRIL) 20 MG tablet Take 1 (one) tablet by mouth once daily Active Magnesium 400 MG Take 1 tablet by mouth once daily Active omeprazole (PRILOSEC) 20 MG capsule Take 1 (one) capsule by mouth 2 times daily Active ondansetron (ZOFRAN) 8 MG tablet Take 1 (one) tablet by mouth every 8 hours as needed Active SYRINGE-NEEDLE , DISP, 3 ML 25G X 1 3 ML MISC every 7 days Active cyanocobalamin (VITAMIN B-12) injection Inject 1,000 (one thousand) mcg subcutaneously every 30 days Active insulin syringe-needle (BD ULTRAFINE) 29G X 1/2 1 ML syringe Use 1 syringe to inject methotrexate subcutaneously every 7 days. (100 syringes/box). 100 Each Active diclofenac (FLECTOR) 1.3 % patch Apply 1 (one) patch to skin once daily as needed Active pravastatin (Pravachol) 10 MG tablet Take 1 (one) tablet by mouth once daily Active Tocilizumab (ACTEMRA IV) 800 mg by Intravenous route every 28 days Active amiodarone (Pacerone) 100 MG tablet Take 1 (one) tablet by mouth 1 Before Breakfast, 2 Before Dinner Active predniSONE (Deltasone) 5 MG tablet Take 1-2 tablets in the morning everyday as needed. 90 tablet 1 023 Active amLODIPine (Norvasc) 10 MG tablet Take 1 (one) tablet by mouth once daily Active naloxone HCl (Narcan) 4 MG/0.1ML nasal spray Cocoa 1 (one) spray into the nose as needed For opioid reversal. May repeat every 2-3 minutes in alternating nostrils until medical assistance is available. 024 Active albuterol (Proventil;Moreno tolin) (2.5 MG/3ML) 0.083% nebulizer solution Inhale 2.5 (two and one-half) mg by mouth 4 times daily as needed for Shortness of Breath or Wheezing 023 Active Xarelto 20 MG tablet Take 1 (one) tablet by mouth daily with dinner 024 Active melatonin 10 MG capsule Take 1 (one) capsule by mouth at bedtime Active tolterodine (Detrol) 2 MG tablet Take 1 (one) tablet by mouth 2 times daily 024 Active azelaic acid (Finacea) 15 % gelIndications :Rosacea Apply to affected area once daily APPLY THIN LAYER TOPICALLY TO FACE DAILY Reasons: Rosacea Active cyclobenzaprin e (Flexeril) 5 MG tabletIndicati ons:Low back pain, unspecified back pain laterality, unspecified chronicity, unspecified whether sciatica present,Other chronic pain Take 1 (one) tablet by mouth 2 times daily as needed 60 tablet 3 024 Active diclofenac sodium (Voltaren) 1 % gel Apply 2 (two) g to affected area 4 times daily as needed 025 Active fluticasone-sa lmeterol (Advair/Wixela ) 250-50 MCG/ACT inhaler Inhale 1 (one) puff by mouth 2 times daily Active acetaminophen CR (Tylenol Arthritis Pain) 650 MG tablet Take 1 (one) tablet by mouth every 8 hours as needed for Pain Active folic acid (Folvite) 1 MG tabletIndicati ons:High risk medication use TAKE 1 TABLET BY MOUTH ONCE DAILY 90 tablet 3 025 Active methotrexate 2.5 MG tabletIndicati ons:Seronegati ve rheumatoid arthritis (HCC) TAKE 4 TABLETS BY MOUTH EVERY 7 DAYS 48 tablet 025 Active folic acid (Folvite) 1 MG tabletIndicati ons:High risk medication use TAKE 1 TABLET BY MOUTH ONCE DAILY 90 tablet 3 024 2024 Discontinued Trelegy Ellipta 200-62.5-25 MCG/ACT inhaler Inhale 1 (one) puff by mouth once daily 024 2024 Discontinued(L ist Clean-Up) methotrexate 2.5 MG tabletIndicati ons:Seronegati ve rheumatoid arthritis (HCC) TAKE 4 TABLETS BY MOUTH EVERY 7 DAYS 48 tablet 025 2024 Discontinued Active Problems Problem Noted Date Diagnosed Date Seronegative rheumatoid arthritis 11/06/2020 Seropositive rheumatoid arthritis 09/10/2020 Encounters Date Type Department Care Team Description 11/02/2024 Refill [facility] - Rheumatology [address] [place] [address] Kami Llanos MD Refill Request 10/29/2024 Refill [facility] Rheumatology [address] [place] [address] Kami Llanos MD Refill Request 10/25/2024 12:41 PM CDT - 10/25/2024 11:59 PM CDT Hospital Encounter [facility] - Rheumatology [address] [place] [address] Kami Llanos MD Rheumatology Discharge Disposition: Home or Self Care 10/25/2024 Travel 09/27/2024 11:42 AM CDT - 09/27/2024 11:59 PM CDT Hospital Encounter [facility] - Rheumatology [address] [place] [address] Kami Llanos MD Rheumatology Discharge Disposition: Home or Self Care 09/27/2024 Travel 08/27/2024 9:51 AM BULK PLANT MANAGER - 08/27/2024 11:59 PM BULK PLANT MANAGER Hospital Encounter [facility] - Rheumatology [address] [place] [address] Kami Llanos MD Rheumatology Discharge Disposition: Home or Self Care 08/27/2024 Travel 08/23/2024 Travel 08/22/2024 Refill [facility] - Rheumatology [address] [place] [address] Kami Llanos MD Refill Request 08/22/2024 Telephone [facility] - Family Medicine [address] [place] [address] Kami Llanos MD Patient Requested Call from Last 3 Months Immunizations Immunization Administration Dates Next Due Covid Moderna primary monova lent 12+ yr 0.5mL 08/14/2020 DTAP, HISTORIC VACCINE 05/17/2017 HEP A PED/ADULT VACCINE 06/10/2016,10/30/2015 INFLUENZA VACCINE 03/16/2020, 9,04/13/2018,2015 INFLUENZA VACCINE, ADJUVANTE D, TRIV. (FLUAD TRIVALENT; 65Y+) (AIIV3) 03/16/2020 PNEUMOCOCCAL PPSV23 05/12/2017 Pneumococcal Pcv13 Conj 05/12/2018 TDAP (7yrs+) 01/02/2023 Family History Medical History Relation Name Comments Diabetes; unknown type Brother COPD - Chronic Obstructive Pulmonary Disease Father Depression Father Lung Disease Father Arthritis - Rheumatoid Mother Heart Failure Mother High Blood Pressure Mother Lung Disease Mother Arthritis - Rheumatoid Sister Relation Name Status Comments Brother Father Mother Alive Sister Alive Social History Tobacco Use Types Packs/Day Years Used Date Smoking Tobacco: Former Cigarettes Smokeless Tobacco: Never Tobacco Cessation:Counseling Given: Not Answered Comments:quit 1976 Alcohol Use Standard Drinks/Week Comments Yes 0 (1 standard drink = 0.6 oz pur e alcohol) OCC PHQ-2 Answer Date Recorded Patient Health Questionnaire-2 Score 0 06/14/2024 Comments No Sex and Gender Information Value Date Recorded Sex Assigned at Female 08/31/2020 11:23 AM BULK PLANT MANAGER Legal Sex Female 6:25 PM BULK PLANT MANAGER Gender Identity Female 08/31/2020 11:23 AM BULK PLANT MANAGER Sexual Orientation Straight 08/31/2020 11 :23 AM BULK PLANT MANAGER Last Filed Vital Signs Vital Sign Reading Time Taken Comments Blood Pressure 118/45 10/25/2024 2:53 PM CDT Pulse 73 10/25/2024 2:53 PM CDT Temperature 36.3 C (97.3 F) 10/25/2024 1:21 PM CDT Respiratory Rate 18 12/06/2022 2:21 PM CDT Oxygen Saturation 100% 06/14/2023 2:23 PM BULK PLANT MANAGER Inhaled Oxygen Concentration - - Weight 106 kg (233 lb 9.6 oz) 10/25/2024 1:21 PM CDT Height 165.1 cm (5' 5 ) 06/14/2024 11:51 AM BULK PLANT MANAGER Body Mass Index 38.87 06/14/2024 11:51 AM BULK PLANT MANAGER Plan of Treatment Upcoming Encounters Date Type Department Care Team (Late st Contact Info) Description 11/22/2024 12:00 PM CDT Appointment [facility] - Rheumatology [address] [place], [place] [address] [address] 11/29/2024 2:00 PM CDT Office Visit [facility] Rheumatology [address] [place] [address] Kami Llanos MD [address] [place] [phone] 12/20/2024 10:00 AM CDT Appointment [address] [address] 01/17/2025 1:00 PM CDT Appointment [address] [address] 02/14/2025 2:00 PM CDT Appointment [address] [address] 05/09/2025 1:00 PM BULK PLANT MANAGER Appointment [address] [address] 05/09/2025 1:20 PM BULK PLANT MANAGER Office Visit [facility] Rheumatology [address] [place] [address] Kami Llanos MD [address] [place] [phone] Health Maintenance Due Date Last Done Comments COLOGUARD (AGES 45-75) - COLON CA SCREENING [address] COLONOGRAPHY - COLON CA SCREENING 1950 FIT - COLON CA SCREENING 1950 FLEX SIG - COLON CA SCREENING 1950 MEDICARE AWV 12 MONTHS 1950 ZOSTER VACCINE (1 of 2) 2001 MAMMOGRAM 05/19/2023 05/19/2021, 03/12/2020 COVID-19 VACCINE ( season) 2024 04/14/2022, 03/23/2021, 09/11/2020, Additional history exists DEPRESSION SCREENING 07/03/2024 03/29/2024, 07/29/2022, 12/24/2021 Respiratory Syncytial Virus (RSV) Vaccine Pt: or over 60 yrs (1 - 1-dose 75+ series) 2026 SCREENING FOR DIABETES 06/14/2027 , 10/02/2023, 06/29/2023, Additional history exists DTAP/TDAP/TD VACCINES (3 - Td or Tdap) 01/02/2033 01/02/2023, 05/17/2017 COLONOSCOPY - COLON CA SCREENING 06/17/2034 06/17/2024 Colorectal Cancer Screening 06/17/2034 PNEUMOCOCCAL VACCINE 50+ Completed 05/12/2018, 05/03 BONE DENSITY TESTING Completed 11/17/2023 INFLUENZA VACCINE Completed 04/07/2024, , 03/16/2020, Additional history exists HEPATITIS C SCREENING Completed 06/14/2024 , 01/10/2023, 11/06/2019 HEPATITIS B VACCINE Aged Out No longe r eligible based on patient's age to complete this topic HIB VACCINE Aged Out No longer eligi ble based on patient's age to complete this topic HPV VACCINE Aged Out No longer eligi ble based on patient's age to complete this topic MENINGOCOCCAL (Group B) VACCINE SHARED DECISION-MAKING Aged Out No longer eligible based on patient's age to complete this topic MENINGOCOCCAL GROUPS A/C/Y/W VACCINE Aged Out No longer eligible based on patient's age to complete this topic Procedures Procedure Name Priority Date/Time Associated Diagnosis Comments HEPATITIS SCREEN ACUTE ([facility]) Routine 06/14/2024 12:50 PM BULK PLANT MANAGER Seropositive rheumatoid arthritis Encounter for other specified special examinations COMPREHENSIVE METABOLIC PANEL Routine 06/14/2024 12:49 PM BULK PLANT MANAGER Seropositive rheumatoid arthritis from Last 3 Months or Most Recently Relevant to Health Maintenance Results * HEPATITIS SCREEN ACUTE ([facility]) (06/14/2024 12:50 PM BULK PLANT MANAGER) Pathologist [facility] Hepatitis A Virus Antibody IgM Negative Negative [facility] INSURANCE BILL Comment: A negative anti-HAV IgM result suggests no recent or current HAV infection. Hepatitis B Virus Surface Antigen Negative Negative [facility] INSURANCE BILL Hepatitis B Core Virus Antibody IgM Negative Negative [facility] INSURANCE BILL Hepatitis C Antibody Non Reactive Non Reactive [facility] INSURANCE BILL Comment: Performed at: - [address] [id number] Manager Sign: John Caban PhD, Phone: [phone] Interpretation Comment [facility] INSURANCE BILL Comment: Not infected with HCV unless early or acute infection is suspected (which may be delayed in an immunocompromised individual), or other evidence exists to indicate HCV infection. Blood BLOOD SPECIMEN / Unknown 06/14/2024 12:50 PM BULK PLANT MANAGER 06/14/2024 Narrative [facility] INSURANCE BILL - 06/15/2024 7:08 AM BULK PLANT MANAGER Performed at: - [address] [id number] Manager Sign: John Caban PhD, Phone: [phone] Kami Llanos MD LAB - CHEMISTRY ORDERABLES Final Result [facility] INSURANCE BILL [address] [place] [address] * (ABNORMAL) COMPREHENSIVE METABOLIC PANEL (06/14/2024 12:49 PM BULK PLANT MANAGER) [facility] Glucose 110(H) 70 - 99 mg/dL [facility] INSURANCE BILL BUN 21 8 - 27 mg/dL [facility] INSURANCE BILL Creatinine 0.74 0.57 - 1.00 mg/dL [facility] INSURANCE BILL eGFR by CKD-EPI 86 >59 mL/min/1.7 3 [facility] INSURANCE BILL BUN/Creatinine Ratio 28 12 - [facility] INSURANCE BILL Sodium 141 134 - 144 mmol/L [facility] INSURANCE BILL Potassium 4.4 3.5 - 5.2 mmol/L [facility] INSURANCE BILL Chloride 104 96 - 106 mmol/L [facility] INSURANCE BILL CO2 25 20 - 29 mmol/L [facility] INSURANCE BILL Calcium 9.4 8.7 - 10.3 mg/dL [facility] INSURANCE BILL Protein Total 6.7 6.0 - 8.5 g/dL [facility] INSURANCE BILL Albumin 4.3 3.8 - 4.8 g/dL [facility] INSURANCE BILL Globulin Total 2.4 1.5 - 4.5 g/dL [facility] INSURANCE BILL Bilirubin Total 0.3 0.0 - 1.2 mg/dL [facility] INSURANCE BILL Alkaline Phosphatase 56 44 - 121 IU/L [facility] INSURANCE BILL AST 13 0 - 40 IU/L [facility] INSURANCE BILL ALT 16 0 - 32 IU/L [facility] INSURANCE BILL Blood BLOOD SPECIMEN / Unknown 06/14/2024 12:49 PM BULK PLANT MANAGER 06/14/2024 Narrative [facility] INSURANCE BILL - 06/15/2024 7:08 AM BULK PLANT MANAGER Performed at: 01 - [address] [id number] Manager Sign: John Caban PhD, Phone: [phone] Kami Llanos MD LAB - CHEMISTRY ORDERABLES Final Result [facility] INSURANCE BILL [address] [place] [address] from Last 3 Months or Most Recently Relevant to Health Maintenance [place] [address] [facility] [place] [address] MEDICARE [facility] Care Teams Band Salvager Relationship Specialty [place] [address] [address] [address] PCP - General Family Medicine 06/14/23
--- OUTSIDE RECORDS SUMMARY | 2024-11-08 10:54 | XMS_ITS | Encounter Summary ---
Author Organization [facility] Address [address] [place] [id number] Care Team Providers Care Carpet Winder Name Role Phone Vanessa Ogden MD Primary Care Provider [phone] Jordan Castro MD Unavailable [phone] Soila Neumann MD Primary Care Provider [phone] Encounter Details Date Type Department Care Team (Latest Contact Info) Description 04/18/2022 [employer] Message Enc [facility] Family & Internal Medicine [facility] [address] [place] [address] [place] [address] [place] [address] Persons with Disabilities Certification Social History Tobacco Use Types Packs/Day Years [...] please move on to questions 3-9 0 01/19/2022 Comments No Sex and Gender Information Value Date Recorded Sex Assigned at Female 06/28/2021 1:39 PM 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 No / Unsure 04/04/2022 7:57 AM CDT documented as of this encounter Progress Notes * Bety Van RN - 04/20/2022 3:25 PM CDT Thoughts? * VINICIO Cuba - 04/18/2022 5:07 PM CDT Please let her know Dr. 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 Can also contact [facility] for one as well. * Bety Van RN - 04/18/2022 4:44 PM CDT Please advise documented in this encounter Plan of Treatment Upcoming Encounters Date Type Department Care Team (Latest Contact Info) Description 11/13/2024 3:00 PM CDT Appointment [facility] [address] [place], [place] [phone] [place] [address] [place], [place] [phone] 11/20/2024 8:40 AM CDT Hospital Encounter [facility] [place] [address] [phone] Carolyn Fernando MD [facility] [address] [place] [id number] 11/20/2024 8:40 AM CDT - 11/20/2024 9:00 AM CDT Surgery [facility] [place] [address] [phone] Carolyn Fernando MD [facility] [address] [place] [address] [address] SACROILI[employer] JOINT 12/05/2024 1:20 PM CDT Office Visit [facility] [address] [place] [address] [place] [address] [place] [address] 01/31/2025 1:20 PM CDT Office Visit [facility] Family & Internal Medicine [address] [phone] Soila Neumann MD [address] [place] [id number] Scheduled Procedures Name Priority Associated Diagnoses Date/Ti nd BLOCK SACROILIAC JOINT SI joint arthritis 11/20/2024 8:40 AM CDT documented as of this encounter Visit Diagnoses Not on filedocumented in this encounter Additional Health Concerns Assessment Noted Time PHQ-9 Depression Total Score: 3 09/09/19 22 9:29 AM CENTRAL OFFICE SUPERVISOR documented as of this encounter Care Teams Carpet Winder Relationship Specialty Start Date End Date Vanessa Ogden MD PCP - General INTERNAL MEDICINE 08/14/18 08/10/22 [place] [address] [facility] [place] [address] PCP - General FAMILY PRACTICE 08/11/22 Jordan Castro MD [address] [facility] [address] [facility] [address] [place] [address] Surgeon ORTHOPAEDIC SURGERY 01/13/20 documented as of this encounter
--- OUTSIDE RECORDS SUMMARY | 2024-11-08 10:54 | XMS_ITS | Clinical Summary ---
Author Organization [facility] Address [facility] [place] [address] Care Team Providers Care Clinical Trial Leader Name Role Phone Jordan Castro MD Unavailable [phone] Soila Neumann MD Primary Care Provider [phone] Allergies Active Allergy Reactions Criticality Noted Date Comments Codeine Vomiting Low 08/14/2018 Fluconazole Rash Low 03/20/2024 Possible facial rash following diflucan 02/23 Sulfa Antibiotics Anaphylaxis,Hives High 08/14/2018 Tramadol Other (see comment) Low Reaction: Confusion Medications estradiol 1 MG tablet Take 1 tablet (1 mg total) by mouth daily. Active Cholecalciferol (VITAMIN D-3 OR) Take 50 mcg by mouth daily. 6 Active Magnesium 400 MG Tab Take 1 tablet by mouth every evening. Active folic acid 1 MG tablet Take 1 tablet (1 mg total) by mouth daily. 1 Active Insulin Syringe-Needle U-100 (SAFETY INSULIN SYRINGES) 27G X 1/2 1 ML MiscIndications: Vitamin B12 deficiency 1 Syringe by Does not apply route weekly. 12 each 3 1 Active albuterol sulfate HFA 108 (90 Base) MCG/ACT inhaler 2 Active cetirizine (ZYRTEC) 10 MG tablet Take 1 tablet (10 mg total) by mouth daily. Active diclofenac epolamine (FLECTOR) 1.3 % PatchIndications :Fibromyalgia Apply 1 patch topically 2 (two) times daily. 60 patch 2 3 Active cyclobenzaprine (FLEXERIL) 5 MG tablet Take 1 tablet (5 mg total) by mouth. 3 Active pravastatin (PRAVACHOL) 10 MG tablet Take 1 tablet (10 mg total) by mouth daily. Active XARELTO 20 MG Tab tablet TAKE 1 TABLET BY MOUTH EVERY EVENING WITH EVENING MEAL 3 Active methotrexate (TREXALL) 2.5 MG tablet Take 1 tablet (2.5 mg total) by mouth once a week. Takes 6 tablets on Monday. 3 Active cyanocobalamin (B-12) 1000 MCG/ML injectionIndicat ions:Vitamin B12 deficiency INJECT 1ML IN THE MUSCLE EVERY WEEK 30 mL 3 Active amiodarone (PACERONE) 100 MG tablet Take 1 tablet (100 mg total) by mouth. 3 Active amLODIPine (NORVASC) 10 MG tablet Take 1 tablet (10 mg total) by mouth daily. 3 Active TOCILIZUMAB IV Inject 700 mg into the vein every 30 (thirty) days. Pt reported increased to 800mg Active Melatonin 10 MG Cap Active TRELEGY ELLIPTA 100-62.5-25 MCG/ACT AEROSOL POWDER, BREATH ACTIVATED 4 Active ondansetron (ZOFRAN) 8 MG tabletIndication s:Nausea Take 1 tablet (8 mg total) by mouth every 8 (eight) hours as needed. 20 tablet 5 4 Active omeprazole (PRILOSEC) 20 MG capsuleIndicatio ns:Gastroesophag eal reflux disease without esophagitis TAKE 1 CAPSULE BY MOUTH DAILY 90 capsule 3 4 Active tolterodine (DETROL) 2 MG tabletIndication s:Mixed incontinence Take 1 tablet (2 mg total) by mouth 2 (two) times daily. 60 tablet 5 4 Active levothyroxine (SYNTHROID) 125 MCG tabletIndication s:Hypothyroidism , unspecified type TAKE 1 TABLET BY MOUTH DAILY 90 tablet 3 4 Active gabapentin (NEURONTIN) 400 MG capsuleIndicatio ns:Chronic pain syndrome,Fibromy algia,Seronegati ve rheumatoid arthritis (CMS/HCC HHS/HCC) TAKE 1 CAPSULE BY MOUTH IN THE MORNING , 1 CAPSULE AROUND NOON, 1 CAPSULE IN THE EVENING AND 2 CAPSULES BY MOUTH AT BEDTIME 450 capsule 3 4 Active azelastine (ASTELIN) 0.1 % nasal sprayIndications :Chronic rhinitis USE 1 SPRAY IN EACH NOSTRIL TWICE DAILY 90 mL 3 4 Active diclofenac sodium (VOLTAREN) 1 % gel Apply 2 g topically 4 (four) times daily. 2 g 5 Active Azelaic Acid 15 % gel APPLY THIN LAYER TOPICALLY TO FACE DAILY 4 Active benzonatate (TESSALON) 200 MG capsule Take 1 capsule (200 mg total) by mouth 3 (three) times daily as needed. FOR COUGH 5 Active lisinopril (PRINIVIL) 20 MG tabletIndication s:Essential hypertension TAKE 1 TABLET BY MOUTH DAILY 90 tablet 3 5 Active ADVAIR DISKUS 250-50 MCG/ACT inhaler 5 Active HYDROcodone-acet aminophen (NORCO) 7.5-325 MG tabletIndication s:Chronic Pain Take 1 tablet by mouth every 8 (eight) hours as needed for Pain. Indications: Chronic Pain 90 tablet 5 Active HYDROcodone-acet aminophen (NORCO) 7.5-325 MG tabletIndication s:Chronic Pain Take 1 tablet by mouth every 8 (eight) hours as needed for Pain. Indications: Chronic Pain 90 tablet 5 Active HYDROcodone-acet aminophen (NORCO) 7.5-325 MG tabletIndication s:Chronic Pain Take 1 tablet by mouth every 8 (eight) hours as needed for Pain. Indications: Chronic Pain 90 tablet 5 Active spironolactone (ALDACTONE) 50 MG tabletIndication s:Hair loss disorder TAKE 50 mg/day in 1 or 2 divided doses; if tolerated after 2 to 4 weeks, increase to 100 mg/day in 1 or 2 divided doses. 30 tablet 5 5 Active ofloxacin (OCUFLOX) 0.3 % ophthalmic solution INSTILL 1 DROP IN LEFT EYE FOUR TIMES DAILY FOR 7 DAYS 5 10/18/19 25 Discontin ued(Thera py completed ) methylPREDNISolo ne, MERLY, (MEDROL DOSEPAK) 4 MG tabletIndication s:Bronchitis 6 TABLETS ON DAY ONE, 5 TABLETS DAY TWO, 4 TABLETS DAY THREE, 3 TABLETS DAY FOUR, 2 TABLETS DAY FIVE, AND 1 TABLET DAY SIX 1 each 5 10/18/19 25 Discontin ued(Thera py completed ) HYDROcodone-acet aminophen (NORCO) 7.5-325 MG tabletIndication s:Chronic Pain Take 1 tablet by mouth every 8 (eight) hours as needed for Pain. Indications: Chronic Pain 90 tablet 5 10/18/19 25 Discontin ued(Reord er) HYDROcodone-acet aminophen (NORCO) 7.5-325 MG tabletIndication s:Chronic Pain Take 1 tablet by mouth every 8 (eight) hours as needed for Pain. Indications: Chronic Pain 90 tablet 5 10/18/19 25 Discontin ued(Reord er) HYDROcodone-acet aminophen (NORCO) 7.5-325 MG tabletIndication s:Chronic Pain Take 1 tablet by mouth every 8 (eight) hours as needed for Pain. Indications: Chronic Pain 90 tablet 5 10/18/19 25 Discontin ued(Reord er) Active Problems Problem Noted Date Diagnosed Date Rotator cuff arthropathy of right shoulder 08/20 SI joint arthritis 03/25/2024 Change in bowel habits 02/13/2024 Pharyngoesophageal dysphagia 12/11/2023 Epigastric abdominal pain 12/11/2023 Lumbar radiculopathy 10/11/2023 Greater trochanteric bursitis, right 08/10/2023 Olecranon bursitis of left elbow 06/06/2022 Seronegative rheumatoid arthritis ([facility]) 11/06/2020 Urinary incontinence 08/13/2019 Sacroiliitis 07/22/2019 Overview (07/22/2019): Added automatically from request for surgery [id number] Bursitis 07/22/2019 Overview (07/22/2019): Added automatically from request for surgery [id number] Osteoarthritis of right hip, unspecified osteoarthritis type 10/11/2018 Urgency of urination 10/09/2018 Hypertension 10/09/2018 Obesity (BMI 30-39.9) 03/30/2017 Fibromyalgia 03/24/2016 Irritable bowel syndrome 03/24/2016 Insomnia 03/24/2016 Gastroesophageal reflux disease 03/23/2016 Bronchial asthma (HHS/HCC) 03/23/2016 Nonalcoholic fatty liver disease 03/23/2016 Lumbago 01/23/2014 Arthralgia of ankle 04/03/2013 Resolved Problems Problem Noted Date Diagnosed Date Resolved Date Anxiety 10/18/2022 Encounters Date Type Department Care Team Description 10/21/2024 [employer] Message Enc [facility] Family & Internal [address] [phone] Soila Neumann MD MRI & Blood work 10/21/2024 Results Follow-Up [facility] & Internal [address] [phone] Soila Neumann MD MG/PCCL UDS W CONF 10/17/2024 10:40 AM CDT Office Visit [facility] Internal [address] [phone] Soila Neumann MD Shoulder Pain (Pt c/o right shoulder pain. Currently seeing PT, originally had some relief but pain has worsened x 2 weeks. ) 10/17/2024 Travel 10/07/2024 12:52 PM CDT - 10/07/2024 11:59 PM CDT Hospital Encounter [facility] [address] [place] [address] Jose Daniel Reis, DPT Soila Neumann MD Shoulder Pain Discharge Disposition: Home or Self Care (Routine Discharge) 10/07/2024 Travel 10/05/2024 [employer] Message Enc [facility] Internal [address] [phone] Soila Neumann MD RT arm Rotator Cuff tear & PT 10/04/2024 1:54 PM CDT - 10/04/2024 11:59 PM CDT Hospital Encounter [facility] [address] [place] [address] Soila Neumann MD Groennert, Jordan R, DPT Shoulder Pain Discharge Disposition: Home or Self Care (Routine Discharge) 10/04/2024 Travel 10/03/2024 4:51 PM CDT - 10/03/2024 11:59 PM CDT Hospital Encounter [facility] [address] [place] [phone] Jose Daniel Reis, DPT Soila Neumann MD Eddy, Sandi L, CHANGE MANAGEMENT ANALYST Shoulder Pain Discharge Disposition: Home or Self Care (Routine Discharge) 10/03/2024 Travel 09/26/2024 3:08 PM CDT - 09/26/2024 11:59 PM CDT Hospital Encounter [facility] [address] [place] [phone] Soila Neumann MD Eddy, Sandi L, CHANGE MANAGEMENT ANALYST Shoulder Pain Discharge Disposition: Home or Self Care (Routine Discharge) 09/26/2024 Travel 09/18/2024 1:00 PM CDT - 09/18/2024 11:59 PM CDT Hospital Encounter [facility] [address] [place] [phone] Jose Daniel Reis, DPT Soila Neumann MD Shoulder Pain Discharge Disposition: Home or Self Care (Routine Discharge) 09/18/2024 Travel 09/16/2024 1:42 PM CDT - 09/16/2024 11:59 PM CDT Hospital Encounter [facility] [address] [place] [phone] Soila Neumann MD Eddy, Sandi L, CHANGE MANAGEMENT ANALYST Shoulder Pain Discharge Disposition: Home or Self Care (Routine Discharge) 09/16/2024 Travel 09/12/2024 2:45 PM CDT - 09/12/2024 11:59 PM CDT Hospital Encounter [facility] [address] [place] [address] Soila Neumann MD Eddy, Sandi L, CHANGE MANAGEMENT ANALYST Shoulder Pain Discharge Disposition: Home or Self Care (Routine Discharge) 09/12/2024 Travel 09/09/2024 1:41 PM CDT - 09/09/2024 11:59 PM CDT Hospital Encounter [facility] [address] [place] [id number] Soila Neumann MD Eddy, Sandi L, PTA Shoulder Pain Discharge Disposition: Home or Self Care (Routine Discharge) 09/09/2024 Travel 09/04/2024 12:59 PM [employer]TER CIVIL (CAD) - 09/04/2024 11:59 PM DRAFTER CIVIL (CAD) Hospital Encounter [facility] [address] [place] [phone] Jose Daniel Reis, DPT Soila Neumann MD Shoulder Pain Discharge Disposition: Home or Self Care (Routine Discharge) 09/04/2024 Travel 09/02/2024 12:57 PM D[employer]TER CIVIL (CAD) - 09/02/2024 11:59 PM DRAFTER CIVIL (CAD) Hospital Encounter [facility] [address] [place] [phone] Jose Daniel Reis, Soila Betts MD Shoulder Pain Discharge Disposition: Home or Self Care (Routine Discharge) 09/02/2024 Travel 08/30/2024 2:30 PM [employer]TER CIVIL (CAD) - 08/30/2024 11:59 PM DRAFTER CIVIL (CAD) Hospital Encounter [facility] [address] [place] [phone] Soila Neumann MD Groennert, Jordan R, BIANCAT Shoulder Pain Discharge Disposition: Home or Self Care (Routine Discharge) 08/30/2024 Travel 08/26/2024 4:15 PM D[employer]TER CIVIL (CAD) - 08/26/2024 11:59 PM DRAFTER CIVIL (CAD) Hospital Encounter [facility] [address] [place] [phone] Jose Daniel Reis, Soila Betts MD Shoulder Pain Discharge Disposition: Home or Self Care (Routine Discharge) 08/26/2024 Travel 08/22/2024 9:00 AM D[employer]TER CIVIL (CAD) - 08/22/2024 9:20 AM DRAFTER CIVIL (CAD) [facility] [place] [address] [phone] Carolyn Fernando MD /SI JOINT STEROID WITH C-ARM 08/22/2024 8:17 AM DRAFTER CIVIL (CAD) - 08/22/2024 9:35 AM DRAFTER CIVIL (CAD) Hospital [facility] [place] [address] [phone] Carolyn Fernando MD Discharge Disposition: Home or Self Care (Routine Discharge) 08/22/2024 Travel 08/20/2024 10:23 AM DRAFTER CIVIL (CAD) - 08/20/2024 11:59 PM DRAFTER CIVIL (CAD) Hospital Encounter [facility] [address] [place] [address] Jose Daniel Reis, DPT Soila Neumann MD Shoulder Pain Discharge Disposition: Home or Self Care (Routine Discharge) 08/20/2024 Travel from Last 3 Months Immunizations Immunization Administration Dates Next Due Dtap (Generic) 05/17/2017 Fluad influenza vaccine, Barney drivalent (aIIV4), Inactivated, adjuvanted, preservative free, 0.5 mL,IM use 03/16/2020 Fluzone High Dose (IIV, triv alent, 0.5mL) 04/07/2024 Fluzone High Dose - >Age 65 (Prefilled Syringe) 04/05/2023,04/14/2022,03/30/2021,2019,04/12/2019 Hepatitis A 06/10/2016,10/30/2015 Hepatitis A (Generic) 06/10/2016,10/30/2015 Influenza (Generic) 03/16/2020, 9,04/13/2018,2015 Influenza Adult (Generic) 04/13/2018,06/10/2016 MODERNA COVID-19 BIVALENT (1 2+), MRNA, LNP-S, PF 04/14/2022 MODERNA COVID-19 (12+) MRNA, LNP-S, PF, 100 MCG/ 0.5 ML DOSE 03/23/2021,09/11/2020,08/14/2020 Pneumococcal (Pneumovax 23) 05/12/2017, 6 Pneumococcal (Prevnar 13) 05/12/2018,04/13/2018 Tdap (Generic) 01/02/2023,01/01/2023,10/30/2015 Family History Medical History Relation Comments Defects Brother 1 PKU-institutiona lized Early Brother 1 PKU baby Kidney Disease Brother 1 Mental Health Brother 1 PKU Brother 1 Retardation/Learning Difficulties Brother 1 PKU Mental Health Brother 2 COPD Father Depression Father Arthritis Maternal Aunt Diabetes Maternal Grandfather Mamie Arthritis Maternal Grandmother Early Hearing Loss Maternal Grandmother Heart Disease Maternal Grandmother stroke Stroke Maternal Grandmother Vision loss Maternal Grandmother MD Arthritis Mother Arthritis in Adults Mother Asthma Mother COPD Mother Early Hearing Loss Mother Heart Disease Mother pacemaker Hypertension Mother Vision loss Mother MD Diabetes Paternal Grandfather Diabetes Paternal Grandmother Arthritis Sister 1 Asthma Sister 1 Lung Disease Sister 1 PKU Sister 1 Ulcerative Colitis Sister 1 Defects Sister 2 PKU-institutiona lized Mental Health Sister 2 Retardation/Learning Difficulties Sister 2 PKU Mental Health Sister 3 Relation Status Comments Brother 1 Brother 2 Alive Father Maternal Aunt Alive Maternal Grandfather Maternal Grandmother Mother Alive Paternal Grandfather Paternal Grandmother Sister 1 Alive Sister 2 Alive Sister 3 Alive Social History Tobacco Use Types Packs/Day Years Used Date Smoking Tobacco: Never Smokeless Tobacco: Never Tobacco Cessation:Counseling Given: No Comments:na Alcohol Use Standard Drinks/Week Comments Not [...] Sex Assigned at Female 06/28/2021 1:39 PM DRAFTER CIVIL (CAD) Legal Sex Female 3:51 PM DRAFTER CIVIL (CAD) Gender Identity Female 06/28/2021 1:39 PM D[employer]TER CIVIL (CAD) Sexual Orientation Straight 06/28/2021 1: 39 PM DRAFTER CIVIL (CAD) Occupation Industry Job Start Date Job End Date RETIRED Not on file Not on file Not on file Last Filed Vital Signs Vital Sign Reading Time Taken Comments Blood Pressure 132/70 10/17/2024 10:45 AM CDT Pulse 86 10/17/2024 10:45 AM CDT Temperature 36.1 C (97 F) 10/17/2024 10:45 AM CDT Respiratory Rate 18 10/17/2024 10:45 AM CDT Oxygen Saturation 95% 10/17/2024 10:45 AM CDT Inhaled Oxygen Concentration - - Weight 106.6 kg (235 lb) 10/17/2024 10:45 AM CDT Height 165.1 cm (5' 5 ) 10/17/2024 10:45 AM CDT Body Mass Index 39.11 10/17/2024 10:45 AM CDT Plan of Treatment Upcoming Encounters Date Type Department Care Team (Latest Contact Info) Description 11/13/2024 3:00 PM CDT Appointment [facility] [address] [place] [address] [place] [address] [facility]. [address] [place] [phone] 11/20/2024 8:40 AM CDT Hospital [facility] [place] [address] [phone] Carolyn Fernando MD [facility] [address] [place] [address] 11/20/2024 8:40 AM CDT - 11/20/2024 9:00 AM CDT [facility] [place] [place] [address] [id number] Carolyn Fernando MD [facility] [address] [place] [address] BLOCK SACROILIAC JOINT 12/05/2024 1:20 PM CDT Office Visit [facility] [address] [place] [address] [place] [address] [place] [address] 01/31/2025 1:20 PM CDT Office Visit [facility] Family & Internal Medicine [facility] [id number] [place] [phone] [place] [address] [facility]. [address] [place] [address] Scheduled Procedures Name Priority Associated Diagnoses Date/Ti me BLOCK SACROILIAC JOINT SI joint arthritis 11/20/2024 8:40 AM CDT Health Maintenance Due Date Last Done Comments Zoster Vaccines (1 of 2) 2001 RSV Immunization or 60+ Years (1 - Risk 60-74 years 1-dose series) 2011 Annual Medicare Wellness Visit 2016 COVID-19 Vaccine ( season) 2024 04/07/2024, 04/14/2022, 03/23/2021, Additional history exists Mammogram Screening 01/09/2025 05/19/2021, 0 Postponed from 05/19/2022 (Going to Outside Clinic) DTaP, Tdap and Td Vaccines (5 - Td or Tdap) 01/02/2033 01/02/2023, 01/01/2023, 05/17/2017, Additional history exists Colorectal Cancer Screening Colonoscopy (10 Years) 06/17/2034 06/17/2024, 06/21/2019 Pneumococcal Vaccine: 50+ Years Completed 05/12/2018, 04/13/2018, 05/12/2017, Additional history exists Hepatitis C Completed 11/06/2019 Dexa Scan (General) Completed 11/17/2023 PHQ-2 (Physician [place]) Completed 07/11/2024 Meningococcal B Vaccine Aged Out No l onger eligible based on patient's age to complete this topic Meningococcal Vaccine Aged Out No jennifer bill eligible based on patient's age to complete this topic RSV Immunizations Under 20 Months Aged Out No longer eligible based on patient's age to complete this topic Goals Goal Patient Goal Type Associated Problems Recent Progress Patient-Stated? 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 Procedure Name Priority Date/Time Associated Diagnosis Comments MG/PCCL UDS W CONF Routine 10/17/2024 11 :24 AM CDT Medication management Therapeutic drug monitoring INJECTION FACET/SI JOINT STEROID WITH C-ARM 08/22/2024 9:16 AM [facility]TER CIVIL (CAD) SI joint arthritis XR PAIN CLINIC C-ARM Today 08/22/2024 8:25 AM DRAFTER CIVIL (CAD) BONE DENSITY/DEXA Routine 11/17/2023 2:0 7 PM CDT Encounter for osteoporosis screening in asymptomatic postmenopausal patient MAMMOGRAM GENERIC (SCAN ORDER) 05/19/2021 HEPATITIS C ANTIBODY Routine 11/06/2019 6:45 PM CDT Need for hepatitis C screening test COLONOSCOPY/EGD GENERIC (SCAN ORDER) Routine 06/21/2019 from Last 3 Months or Most Recently Relevant to Health Maintenance Results * (ABNORMAL) MG/PCCL UDS W CONF (10/17/2024 11:24 AM CDT) RESULT SUMMARY [facility] Comment: Prescribed Prescribed Not Prescribed Consistent Inconsistent Inconsistent Hydrocodone PRESCRIBED DRUG 1 (U) Hydrocodone [facility] FENTANYL SCREEN (U) NEGATIVE <0.5 ng/mL [facility] [place] MORPHINE (U) NEGATIVE <10 ng/mL [facility] [place] [facility] DESMETHYLTRAMADOL (U) NEGATIVE <100 ng/mL [facility] [place] [facility] TRAMADOL (U) NEGATIVE <100 ng/mL [facility] [place] [facility] TRAMADOL COMMENTS [facility] Comment:See LDT Notes AMPHETAMINES PM NEGATIVE <500 ng/mL [facility] [place] BARBITURATES PM (U) NEGATIVE <300 ng/mL [facility] [place] BENZODIAZEPINES PM (U) NEGATIVE <100 ng/mL [facility] [place] COCAINE METABOLITE PM (U) NEGATIVE <150 ng/mL [facility] [place] [place] MARIJUANA METABOLITE PM (U) NEGATIVE <20 ng/mL [facility] [place] [place] METHADONE PM (U) NEGATIVE <100 ng/mL [facility] [place] [place] OPIATES PM (U) POSITIVE(A) <100 ng/mL [facility] [place] [place] CODEINE PM (U) NEGATIVE <50 ng/mL [facility] [place] [place] HYDROCODONE PM (U) 3,726(H) <50 ng/mL [facility] [place] HYDROCODONE PM MEDMATCH (U) CONSISTENT [facility] [place] HYDROMORPHONE PM (U) 637(H) <50 ng/mL [facility] [place] HYDROMORPHONE PM MEDMATCH CONSISTENT [facility] [place] MORPHINE PM (U) NEGATIVE <50 ng/mL [facility] [place] NORHYDROCODONE PM (U) 1,278(H) <50 ng/mL [facility] [place] [place] NORHYDROCODONE PM MM (U) CONSISTENT [facility] [place] [place] OPIATES COMMENTS [facility] Comment:See Opiates Notes, L DT Notes OXYCODONE PM (U) NEGATIVE <100 ng/mL [facility] CRE[facility] RANDOM (U) 71.1 > or = 20.0 mg/dL [facility] [place] pH PM (U) 5.3 4.5 - 9.0 [facility] OXIDANT NEGATIVE <200 mcg/mL [facility] NOTE [facility] Comment: This drug testing is for medical treatment only. Analysis was performed as non-forensic testing and these results should be used only by healthcare providers to render diagnosis or treatment, or to monitor progress of medical conditions. Opiates Notes: Hydrocodone, Norhydrocodone, Hydromorphone detected is consistent with the use of the drug Hydrocodone. Hydromorphone detected is consistent with the use of the drug Hydromorphone. Hydromorphone can be a prescribed drug and is also a metabolite of Hydrocodone. LDT Notes: Confirmation tests were developed and their analytical performance characteristics have been determined by [facility]. It has not been cleared or approved by the FDA. This assay has been validated pursuant to the CLIA regulations and is used for clinical purposes. medMATCH(R) enables providers to identify if drug use is consistent or inconsistent with a corresponding prescribed medication(s) list. Healthcare Providers needing Interpretation assistance, please contact us at [phone] ( ) M-F, 8am to 10pm EST URINE SPECIMEN / Unknown 10/17/2024 11:24 AM CDT 10/18/2024 2:00 AM CDT Narrative Resulting Agency Comment Performing Organization Information: Site ID: Name: [facility] Address: [address] [place] [address] Director: Raffi Hoyt Site ID: [id number] Name: [facility] Address: [id number] [place] [phone] Director: Reymundo Rivera MD Soila Neumann MD URINE ORDERABLES Final Result Performing Organization Address City/State/[facility] Co de Phone Number [facility] - [place] [id number] [employer], [place] [address] [address] [place] [address] * XR PAIN CLINIC C-ARM (08/22/2024 8:25 AM DRAFTER CIVIL (CAD)) Narrative Radiology, Technologist - 08/22/2024 8:25 AM DRAFTER CIVIL (CAD) This report does not contain a radiologist's interpretation. Please review associated procedure and/or operative report. Carolyn Fernando MD GENERAL IMAGING Final Result * BONE DENSITY/DEXA (11/17/2023 2:07 PM CDT) Anatomical Region Laterality Modality Bone Bone Density 11/17/2023 9:09 PM CDT Impressions 11/17/2023 9:10 PM CDT IMPRESSION: WHO Classification: osteopenia. FRAX: 4.5% chance of hip fracture and 27% chance of major osteoporotic fracture over the next 10 years. Referred By: SOILA NEUMANN Interpreted By: Rodri Chaudhry MD, 11/17/2023 9:09 PM Narrative 11/17/2023 9:10 PM CDT Examination: Bone Density Axial Exam Date/Time: 11/17/2023 1:51 PM Reason For Exam: Asymptomatic postmenopausal patient osteoporosis screening Findings: DEXA bone densitometry The bone mineral density (BMD) was determined by dual-energy x-ray absorptiometry, the results are as follows: AP Lumbar Spine L1 through L4 BMD Patient (GM/SQCM): 1.136 T-Score (Standard deviations from young adult peak bone density): 0.8 Left femoral neck: BMD Patient (GM/SQCM): 0.71 T-Score (Standard deviations from young adult peak bone density): -1.2 Total Right femur: BMD Patient (GM/SQCM): 0.935 T-Score (Standard deviations from young adult peak bone density): -0.1 Recommendations: All patients should ensure an adequate intake of dietary calcium and vitamin D. The NOF recommend adults under the age of 50 need 1000 mg of calcium and 400-800 IU of vitamin D daily. Effective therapy for the prevention and treatment of osteoporosis include biphosphonates. Follow-up: People with diagnosed cases of osteoporosis or at high risk for fracture should have regular bone mineral density test. For patients eligible for Medicare, routine testing is allowed once every 2 years. Testing frequency can be increased to one year for patients who have rapidly progressing disease, those who are receiving or discontinuing medical therapy to restore bone mass, or have additional risk factors. Procedure Note Rodri Chaudhry MD - 11/17/2023 Examination: Bone Density Axial Exam Date/Time: 11/17/2023 1:51 PM Reason For Exam: Asymptomatic postmenopausal patient osteoporosis screening Findings: DEXA bone densitometry The bone mineral density (BMD) was determined bydual-energy x-ray absorptiometry, the results are as follows: AP Lumbar Spine L1 through L4 BMD Patient (GM/SQCM): 1.136 T-Score (Standard deviations from young adult peak bonedensity): 0.8 Left femoral neck: BMD Patient (GM/SQCM): 0.71 T-Score (Standard deviations from young adult peak bonedensity): -1.2 Total Right femur: BMD Patient (GM/SQCM): 0.935 T-Score (Standard deviations from young adult peak bonedensity): -0.1 Recommendations: All patients should ensure an adequate intake of dietary calcium andvitamin D. The NOF recommend adults under the age of 50 need 1000 mg ofcalcium and 400-800 IU of vitamin D daily. Effective therapy for theprevention and treatment of osteoporosis include biphosphonates. Follow-up: People with diagnosed cases of osteoporosis or at high risk for fractureshould have regular bone mineral density test. For patients eligible forMedicare, routine testing is allowed once every 2 years. Testing frequencycan be increased to one year for patients who have rapidly progressingdisease, those who are receiving or discontinuing medical therapy torestore bone mass, or have additional risk factors. IMPRESSION: WHO Classification: osteopenia. FRAX: 4.5% chance of hip fracture and 27% chance of major osteoporoticfracture over the next 10 years. Referred By: SOILA NEUMANN Interpreted By: Rodri Chaudhry MD, 11/17/2023 9:09 PM us Soila Neumann MD DEXA Final Result * MAMMOGRAM GENERIC (05/19/2021) Anatomical Region Laterality Modality Other 05/19/2021 Narrative 05/19/2021 Ordered by an unspecified provider. us Documents Scanned SCANNING Final Result * HEPATITIS C ANTIBODY (11/06/2019 6:45 PM CDT) HEPATITIS C AB NON-REACTI VE NON-REACTI VE 11/07/2019 10:[address] [facility] 11/06/2019 6:45 PM CDT us Vanessa Ogden MD LABORATORY Final Result [facility] [address] [place] [address], * COLONOSCOPY/EGD (06/21/2019) us Documents Scanned SCANNING Edited Result - Final from Last 3 Months or Most Recently Relevant to Health Maintenance Additional Health Concerns Active Problems Noted Date Diagnosed Date Autogenerated Problem 10/16/[address] [place] [address] [facility] MEDICARE Care Teams Clinical Trial Leader Relationship Specialty [place] [address] [facility] [address] [place] [address] PCP - General FAMILY PRACTICE 08/11/22 Jordan Castro MD [address] ON LICENSE OF [facility] [address] [facility] [address] [place] [address] Surgeon ORTHOPAEDIC SURGERY 01/13/20
--- OUTSIDE RECORDS SUMMARY | 2024-11-08 10:55 | XMS_ITS | Encounter Summary ---
Author Organization [facility] Address [address] [place] [address] Care Team Providers Care Instruction Librarian Name Role Phone Vanessa Ogden MD Primary Care Provider [phone] Jordan Castro MD Unavailable [phone] Soila Neumann MD Primary Care Provider [phone] Encounter Details Date Type Department Care Team (Late st Contact Info) Description 06/19/2020 PicBadges Message Enc [facility] Medical Group Family & Internal Medicine [facility] [address] [place] [address] [place] Og[place] [id number] [place] [address] RE: Follow Up/Update Social History Tobacco Use Types Packs/Day Years Used Date Smoking Tobacco: Never Smokeless Tobacco: Never Alcohol Use Standard Drinks/Week Comments Yes 0 (1 standard drink = 0.6 oz pur e alcohol) Rare use PHQ-2 Answer Date Recorded PHQ-2 Score 0 09/28/2018 Comments No Sex and Gender Information Value Date Recorded Sex Assigned at Female 06/28/2021 1:39 PM APPEALS REFEREE Legal Sex Female 3:51 PM APPEALS REFEREE Gender Identity Female 06/28/2021 1:39 PM APPEALS REFEREE Sexual Orientation Straight 06/28/2021 1: 39 PM APPEALS REFEREE COVID-19 Exposure Response Date Recorded In the last month, have you been in contact with someone who was confirmed or suspected to have Coronavirus / COVID-19? No / Unsure 05/25/2020 3:08 PM APPEALS REFEREE documented as of this encounter Plan of Treatment Upcoming Encounters Date Type Department Care Team (Latest Contact Info) Description 11/13/2024 3:[address] [facility] [address] [place], [place] [phone] [place] [address] [facility]. [address] [place] [address] [phone] 11/20/2024 8:40 AM CDT Hospital Encounter [facility] Interventional [place] [address] [id number] Carolyn Fernando MD Three [facility] [address] [place] [address] 11/20/2024 8:40 AM CDT - 11/20/2024 9:00 AM CDT Surgery [facility] Interventional [place] [address] [id number] Carolyn Fernando MD Three [facility] [address] [place] [address] BLOCK SACROILIAC JOINT 12/05/2024 1:20 PM CDT Office Visit [facility] Orthopedic Surgery-[place] [address] [place] [address] [place] [address] [place] [address] 01/31/2025 1:20 PM CDT Office Visit [facility] Family & Internal Medicine [facility] [address] [place] [address] [place] [address] [facility]. [address] [place] [address] [phone] Scheduled Procedures Name Priority Associated Diagnoses Date/Ti me BLOCK SACROILIAC JOINT SI joint arthritis 11/20/2024 8:40 AM CDT documented as of this encounter Visit Diagnoses Not on filedocumented in this encounter Additional Health Concerns Infection Onset Date Last Indicated Resolved Time COVID-19 Rule Out 09/08/2021 09/08/2021 09/08/2021 10:37 AM APPEALS REFEREE documented as of this encounter Care Teams Instruction Librarian Relationship Specialty Start Date End Date Vanessa Ogden MD PCP - General INTERNAL MEDICINE 08/14/18 08/10/22 [place] [address] [facility]. [address] [place] [address] PCP - General FAMILY PRACTICE 08/11/22 Jordan Castro MD [address] [facility] [address] [facility] [address] [place] [address] Surgeon ORTHOPAEDIC SURGERY 01/13/20 documented as of this encounter
--- OUTSIDE RECORDS SUMMARY | 2024-11-08 10:55 | XMS_ITS | Encounter Summary ---
Author Organization [facility] Address [address] [place] [address] Care Team Providers Care Technical Services Coordinator Name Role Phone Jordan Castro MD Unavailable [phone] Soila Neumann MD Primary Care Provider [phone] Encounter Details Date Type Department Care Team (Latest Contact Info) Description 02/12/2024 [place] Productst Message Enc [facility] Medical Group Multispecialty Care - [address], [address] [place] [phone] Dinesh Cruz DO Recent EDG biopsy Social History Tobacco Use Types Packs/Day Years [...] Date Recorded Patient Health Questionnaire-2 Score 0 12/11/2023 Comments No Sex and Gender Information Value Date Recorded Sex Assigned at Female 06/28/2021 1:39 PM HAND LENS POLISHER Legal Sex Female 3:51 PM HAND LENS POLISHER Gender Identity Female 06/28/2021 1:39 PM HAND LENS POLISHER Sexual Orientation Straight 06/28/2021 1: 39 PM HAND LENS POLISHER Occupation Industry Job Start Date Job End Date RETIRED Not on file Not on file Not on file documented as of this encounter Plan of Treatment Upcoming Encounters Date Type Department Care Team (Latest Contact Info) Description 11/13/2024 3:[address] [facility] [address] [place] [address] [place] [address] [facility]. [address] [place] [address] [phone] 11/20/2024 8:40 AM CDT Hospital Encounter [facility] Interventional [place] [address] [id number] Carolyn Fernando MD Three [facility] [address] [place] [address] 11/20/2024 8:40 AM CDT - 11/20/2024 9:00 AM CDT Surgery [facility] Interventional [place] [address] [id number] Carolyn Fernando MD Three [facility] [address] [place] [address] BLOCK SACROILIAC JOINT 12/05/2024 1:20 PM CDT Office Visit [facility] Orthopedic Surgery-[place] [address] [place] [address] [place] [address] [place] [address] 01/31/2025 1:20 PM CDT Office Visit [facility] Family & Internal Medicine [facility] [address] [place] [address] [place] [address] [facility] [address] [place] [address] Scheduled Procedures Name Priority Associated Diagnoses Date/Ti me BLOCK SACROILIAC JOINT SI joint arthritis 11/20/2024 8:40 AM CDT documented as of this encounter Visit Diagnoses Not on filedocumented in this encounter Additional Health Concerns Assessment Noted Time PHQ-9 Depression Total Score: 2 08/03/19 23 2:16 PM HAND LENS POLISHER documented as of this encounter Care Teams Technical Services Coordinator Relationship Specialty [place] [address] [address] [place] [address] PCP - General FAMILY PRACTICE 08/11/22 Jordan Castro MD [address] [facility] [address] [place] [address] Surgeon ORTHOPAEDIC SURGERY 01/13/20 documented as of this encounter
--- OUTSIDE RECORDS SUMMARY | 2024-11-08 10:55 | XMS_ITS | Encounter Summary ---
Author Organization [facility] Address [address] [place] [address] Care Team Providers Care Wind Project Manager Name Role Phone Jordan Castro MD Unavailable [phone] Soila Neumann MD Primary Care Provider [phone] Encounter Details Date Type Department Care Team (Latest Contact Info) Description 02/12/2024 coJuvot Message Enc [facility] Medical Group Multispecialty Care - [address], [address] [place] [phone] Dinesh Cruz, DO medication NYSTOP Social History Tobacco Use Types Packs/Day Years [...] Sex Assigned at Female 06/28/2021 1:39 PM LYE BATH OPERATOR Legal Sex Female 3:51 PM LYE BATH OPERATOR Gender Identity Female 06/28/2021 1:39 PM LYE BATH OPERATOR Sexual Orientation Straight 06/28/2021 1: 39 PM LYE BATH OPERATOR Occupation Industry Job Start Date Job End Date RETIRED Not on file Not on file Not on file documented as of this encounter Plan of Treatment Upcoming Encounters Date Type Department Care Team (Latest Contact Info) Description 11/13/2024 3:[address] [facility] [address] [place] [address] [place] [address] [facility]. [address] [place] [address] [phone] 11/20/2024 8:40 AM CDT Hospital Encounter [facility] Interventional Pain [place] [address] [id number] Carolyn Fernando MD Three [facility] [address] [place] [address] 11/20/2024 8:40 AM CDT - 11/20/2024 9:[address] [facility] Interventional Pain [place] [address] [id number] Carolyn Fernando MD Three [facility] [address] [place] [address] BLOCK SACROILIAC JOINT 12/05/2024 1:20 PM CDT Office Visit [facility] Orthopedic Surgery-[place] [address] [place] [address] [place] [address] [place] [address] 01/31/2025 1:20 PM CDT Office Visit [facility] Family & Internal Medicine [facility] [address] [place] [address] [place] [address] [facility]. [address] [place] [address] Scheduled Procedures Name Priority Associated Diagnoses Date/Ti me BLOCK SACROILIAC JOINT SI joint arthritis 11/20/2024 8:40 AM CDT documented as of this encounter Visit Diagnoses Not on filedocumented in this encounter Additional Health Concerns Assessment Noted Time PHQ-9 Depression Total Score: 2 08/03/19 23 2:16 PM LYE BATH OPERATOR documented as of this encounter Care Teams Wind Project Manager Relationship Specialty [place] [address] [address] [place] [address] PCP - General FAMILY PRACTICE 08/11/22 Jordan Castro MD [address] [facility] [address] [place] [address] Surgeon ORTHOPAEDIC SURGERY 01/13/20 documented as of this encounter
--- OUTSIDE RECORDS SUMMARY | 2024-11-08 10:55 | XMS_ITS | Encounter Summary ---
Author Organization [facility] Address [address] [place] [address] Care Team Providers Care Railroad Car Repairman Name Role Phone Vanessa Ogden MD Primary Care Provider [phone] Jordan Castro MD Unavailable [phone] Soila Neumann MD Primary Care Provider [phone] Encounter Details Date Type Department Care Team (Late st Contact Info) Description 06/02/2020 Tameccot Message Enc [facility] Medical Group Family & Internal Medicine [facility] [phone] [place] [address] [place]den [place] [address] [place] [address] Referral Request Social History Tobacco Use Types Packs/Day Years Used Date Smoking Tobacco: Never Smokeless Tobacco: Never Alcohol Use Standard Drinks/Week Comments Yes 0 (1 standard drink = 0.6 oz pur e alcohol) Rare use PHQ-2 Answer Date Recorded PHQ-2 Score 0 09/28/2018 Comments No Sex and Gender Information Value Date Recorded Sex Assigned at Female 06/28/2021 1:39 PM PROTECTION CHIEF INDUSTRIAL PLANT Legal Sex Female 3:51 PM PROTECTION CHIEF INDUSTRIAL PLANT Gender Identity Female 06/28/2021 1:39 PM PROTECTION CHIEF INDUSTRIAL PLANT Sexual Orientation Straight 06/28/2021 1: 39 PM PROTECTION CHIEF INDUSTRIAL PLANT COVID-19 Exposure Response Date Recorded In the last month, have you been in contact with someone who was confirmed or suspected to have Coronavirus / COVID-19? No / Unsure 05/25/2020 3:08 PM PROTECTION CHIEF INDUSTRIAL PLANT documented as of this encounter Progress Notes * Porsha Manzo - 06/09/2020 10:32 AM CST We will get this rerouted and contact the patient. Thank you! ECTION CHIEF INDUSTRIAL PLANT documented in this encounter Plan of Treatment Upcoming Encounters Date Type Department Care Team (Latest Contact Info) Description 11/13/2024 3:00 PM CDT Appointment [facility] [address] [place] [address] [place] [address] [facility]. [address] [place] [address] 11/20/2024 8:40 AM CDT Hospital Encounter [facility] Interventional [place] [address] [id number] Carolyn Fernando MD Three [facility] [address] [place] [address] 11/20/2024 8:40 AM CDT - 11/20/2024 9:00 AM CDT Surgery [facility] Interventional Pain [place] [address] [id number] Carolyn Fernando MD Three [facility] [address] [place] [address] BLOCK SACROILIAC JOINT 12/05/2024 1:20 PM CDT Office Visit [facility] Medical Group Orthopedic Surgery-[place] [address] [address] [place] [phone] [place] [address] [place], [place] [address] 01/31/2025 1:20 PM CDT Office Visit [facility] Medical Group Family & Internal Medicine [facility] [address] [place] [address] [place] [address] [address] [place] [address] Scheduled Procedures Name Priority Associated Diagnoses Date/Ti me BLOCK SACROILIAC JOINT SI joint arthritis 11/20/2024 8:40 AM CDT documented as of this encounter Visit Diagnoses Not on filedocumented in this encounter Additional Health Concerns Infection Onset Date Last Indicated Resolved Time COVID-19 Rule Out 09/08/2021 09/08/2021 09/08/2021 10:37 AM PROTECTION CHIEF INDUSTRIAL PLANT documented as of this encounter Care Teams Railroad Car Repairman Relationship Specialty Start Date End Date Vanessa Ogden MD PCP - General INTERNAL MEDICINE 08/14/18 08/10/22 [place] [address] [address] [place] [address] PCP - General FAMILY PRACTICE 08/11/22 Jordan Castro MD [address] [facility] [address] [facility] [address] [place], [place] [phone] Surgeon ORTHOPAEDIC SURGERY 01/13/20 documented as of this encounter
--- OUTSIDE RECORDS SUMMARY | 2024-11-08 10:55 | XMS_ITS | Encounter Summary ---
Author Organization [facility] Address [address] [place] [address] Care Team Providers Care Optimization Engineer Name Role Phone Jordan Castro MD Unavailable [phone] Soila Neumann MD Primary Care Provider [phone] Encounter Details Date Type Department Care Team (Late st Contact Info) Description 08/14/2023 Guardly Message Enc [facility] Medical Group Family & Internal Medicine [facility] [address] [place] [phone] [place]ila Neumann MD [phone] [place] [address]. [address] [place] [address] Endoscopy referral Social History Tobacco Use Types Packs/Day Years [...] Sex Assigned at Female 06/28/2021 1:39 PM SCALE ATTENDANT Legal Sex Female 3:51 PM SCALE ATTENDANT Gender Identity Female 06/28/2021 1:39 PM SCALE ATTENDANT Sexual Orientation Straight 06/28/2021 1: 39 PM SCALE ATTENDANT Occupation Industry Job Start Date Job End Date RETIRED Not on file Not on file Not on file documented as of this encounter Plan of Treatment Upcoming Encounters Date Type Department Care Team (Latest Contact Info) Description 11/13/2024 3:[address] [facility] [address] [place] [address] [place] [address] [facility] [address] [place] [address] [phone] 11/20/2024 8:40 AM CDT Hospital Encounter [facility] Interventional [place] [address] [id number] Carolyn Fernando MD Three [facility] [address] [place] [address] 11/20/2024 8:40 AM CDT - 11/20/2024 9:00 AM CDT Surgery [facility] [place] [address] [id number] Carolyn Fernando MD Three [facility] [address] [place] [address] BLOCK SACROILIAC JOINT 12/05/2024 1:20 PM CDT Office Visit [facility] Orthopedic Surgery-[place] [address] [place] [address] [place] [address] [place], [place] [phone] 01/31/2025 1:20 PM CDT Office Visit [facility] Family & Internal Medicine [facility] [address] [place] [address] [place] [address] [address] [place] [address] Scheduled Procedures Name Priority Associated Diagnoses Date/Ti me BLOCK SACROILIAC JOINT SI joint arthritis 11/20/2024 8:40 AM CDT documented as of this encounter Visit Diagnoses Not on filedocumented in this encounter Additional Health Concerns Assessment Noted Time PHQ-9 Depression Total Score: 2 08/03/19 23 2:16 PM SCALE ATTENDANT documented as of this encounter Care Teams Optimization Engineer Relationship Specialty [place] [address] [address] [place] [address] PCP - General FAMILY PRACTICE 08/11/22 Jordan Castro MD 6812 [facility] [address] [place] [address] Surgeon ORTHOPAEDIC SURGERY 01/13/20 documented as of this encounter
--- OUTSIDE RECORDS SUMMARY | 2024-11-08 10:55 | XMS_ITS | Encounter Summary ---
Author Organization [facility] Address [address] [place] [address] Care Team Providers Care Pipe Connector Name Role Phone Vanessa Ogden MD Primary Care Provider [phone] Jordan Castro MD Unavailable [phone] Soila Neumann MD Primary Care Provider [phone] Encounter Details Date Type Department Care Team (Late st Contact Info) Description 11/26/2020 GoNabitt Message Enc [facility] Medical Group Family & Internal Medicine [facility] [address] [place] [phone] Vanessa Ogden [place] [address] [place] [address] Follow Up/Update Social History Tobacco Use Types [...] Sex Assigned at Female 06/28/2021 1:39 PM INSTRUMENT INSPECTOR Legal Sex Female 3:51 PM INSTRUMENT INSPECTOR Gender Identity Female 06/28/2021 1:39 PM INSTRUMENT INSPECTOR Sexual Orientation Straight 06/28/2021 1: 39 PM INSTRUMENT INSPECTOR COVID-19 Exposure Response Date Recorded In the last month, have you been in contact with someone who was confirmed or suspected to have Coronavirus / COVID-19? No / Unsure 11/20/2020 10:10 AM CDT documented as of this encounter Plan of Treatment Upcoming Encounters Date Type Department Care Team (Latest Contact Info) Description 11/13/2024 3:00 PM CDT Appointment [facility] [address] [facility] [place] [address] [place] [address] [address] [place] [address] 11/20/2024 8:40 AM CDT Hospital Encounter [facility] Interventional [place] [address] [id number] Carolyn Fernando MD Three [facility] [address] [place] [address] 11/20/2024 8:40 AM CDT - 11/20/2024 9:00 AM CDT Surgery [facility] Interventional Pain [place] [address] [id number] Carolyn Fernando MD Three [facility] [address] [place] [address] BLOCK SACROILIAC JOINT 12/05/2024 1:20 PM CDT Office Visit [facility] Medical Group Orthopedic Surgery-[place] [address] [place], [place] 8634[address] [place] [address] [address] [place], [place] [phone] 01/31/2025 1:20 PM CDT Office Visit [facility] Medical Group Family & Internal Medicine [facility] [address] [place] [address] [place] [address] [facility] [address]. [address] [place] [address] Scheduled Procedures Name Priority Associated Diagnoses Date/Ti me BLOCK SACROILIAC JOINT SI joint arthritis 11/20/2024 8:40 AM CDT documented as of this encounter Visit Diagnoses Not on filedocumented in this encounter Additional Health Concerns Infection Onset Date Last Indicated Resolved Time COVID-19 Rule Out 09/08/2021 09/08/2021 09/08/2021 10:37 AM INSTRUMENT INSPECTOR documented as of this encounter Care Teams Pipe Connector Relationship Specialty Start Date End Date Vanessa Ogden MD PCP - General INTERNAL MEDICINE 08/14/18 08/10/22 [place] [address] [address] [place] [address] PCP - General FAMILY PRACTICE 08/11/22 Jordan Castro MD 6812 [facility] [address] [facility] [address] [place] [address] Surgeon ORTHOPAEDIC SURGERY 01/13/20 documented as of this encounter
--- OUTSIDE RECORDS SUMMARY | 2024-11-08 10:55 | XMS_ITS | Encounter Summary ---
Author Organization [facility] Address [address] [place] [address] 19331 Care Team Providers Care Price Checker Name Role Phone Jordan Castro MD Unavailable [phone] Soila Neumann MD Primary Care Provider [phone] Encounter Details Date Type Department Care Team (Late st Contact Info) Description 06/15/2023 [employer] Message Enc [facility] Medical Group Family & Internal Medicine [address] [address] [place] [id number] [place] [address]. [address] [place] [address] update of health: Covid positive Social History Tobacco Use Types Packs/Day Years [...] Sex Assigned at Female 06/28/2021 1:39 PM FIELD NURSE CASE MANAGER Legal Sex Female 3:51 PM FIELD NURSE CASE MANAGER Gender Identity Female 06/28/2021 1:39 PM FIELD NURSE CASE MANAGER Sexual Orientation Straight 06/28/2021 1: 39 PM FIELD NURSE CASE MANAGER Occupation Industry Job Start Date Job End Date RETIRED Not on file Not on file Not on file documented as of this encounter Plan of Treatment Upcoming Encounters Date Type Department Care Team (Latest Contact Info) Description 11/13/2024 3:[address] [facility] [address] [place], [place] [id number] [place] [address] [facility]. [address] [place] [address] [id number] 11/20/2024 8:40 AM CDT Hospital Encounter [facility] Interventional [place] [address] [id number] Carolyn Fernando MD Three [facility] [address] [place] [address] 11/20/2024 8:40 AM CDT - 11/20/2024 9:00 AM CDT Surgery [facility] [place]ventional [place] [address] [id number] Carolyn Fernando MD Three [facility] [address] [place] [address] BLOCK SACROILIAC JOINT 12/05/2024 1:20 PM CDT Office Visit [facility] Orthopedic Surgery[place] [address] [place] [address] [place] [address] [place], [place] 262360 01/31/2025 1:20 PM CDT Office Visit [facility] Family & Internal Medicine [facility] [address] [place] [address] [place] [address] [address] [place] [address] Scheduled Procedures Name Priority Associated Diagnoses Date/Ti me BLOCK SACROILIAC JOINT SI joint arthritis 11/20/2024 8:40 AM CDT documented as of this encounter Visit Diagnoses Not on filedocumented in this encounter Additional Health Concerns Assessment Noted Time PHQ-9 Depression Total Score: 2 08/03/19 23 2:16 PM FIELD NURSE CASE MANAGER documented as of this encounter Care Teams Price Checker Relationship Specialty [place] [address] [address] [place] [address] PCP - General FAMILY PRACTICE 08/11/22 Jordan Castro MD [address] [facility] [address] [place] [address] Surgeon ORTHOPAEDIC SURGERY 01/13/20 documented as of this encounter
--- OUTSIDE RECORDS SUMMARY | 2024-11-08 10:55 | XMS_ITS | Encounter Summary ---
Author Organization [facility] Address [address] [place] [address] Care Team Providers Care Monotype Setter Name Role Phone Jordan Castro MD Unavailable [phone] Soila Neumann MD Primary Care Provider [phone] Encounter Details Date Type Department Care Team (Latest Contact Info) Description 02/13/2024 Endosee Message Enc [facility] Medical Group Multispecialty Care - [address], [address] [place] [phone] [facility] Provider Recap on Phonecall Social History Tobacco Use Types Packs/Day Years [...] Sex Assigned at Female 06/28/2021 1:39 PM RN INTERVENTIONAL Legal Sex Female 3:51 PM RN INTERVENTIONAL Gender Identity Female 06/28/2021 1:39 PM RN INTERVENTIONAL Sexual Orientation Straight 06/28/2021 1: 39 PM RN INTERVENTIONAL Occupation Industry Job Start Date Job End Date RETIRED Not on file Not on file Not on file documented as of this encounter Plan of Treatment Upcoming Encounters Date Type Department Care Team (Latest Contact Info) Description 11/13/2024 3:[address] [facility] [address] [place] [address] [place] [address] [facility]. [address] [place] [address] [id number] 11/20/2024 8:40 AM CDT Hospital Encounter [facility] Interventional [place] [address] [id number] Carolyn Fernando MD Three [facility] [address] [place] [address] 11/20/2024 8:40 AM CDT - 11/20/2024 9:00 AM CDT Surgery [facility] Interventional [place] [address] [id number] Carolyn Fernando MD Three [facility] [address] [place] [address] BLOCK SACROILIAC JOINT 12/05/2024 1:20 PM CDT Office Visit [facility] Orthopedic Surgery-[place] [address] [place] [address] [place] [address] [place] [address] 01/31/2025 1:20 PM CDT Office Visit [facility] Family & Internal Medicine [facility] [address] [place] [address] [place] [address] [facility] [address] [place] [address] Scheduled Procedures Name Priority Associated Diagnoses Date/Ti me BLOCK SACROILIAC JOINT SI joint arthritis 11/20/2024 8:40 AM CDT documented as of this encounter Visit Diagnoses Not on filedocumented in this encounter Additional Health Concerns Assessment Noted Time PHQ-9 Depression Total Score: 2 08/03/19 23 2:16 PM RN INTERVENTIONAL documented as of this encounter Care Teams Monotype Setter Relationship Specialty [place] [address] [address] [place] [address] PCP - General FAMILY PRACTICE 08/11/22 Jordan Castro MD [address] [facility] [address] [place] [address] Surgeon ORTHOPAEDIC SURGERY 01/13/20 documented as of this encounter
--- OUTSIDE RECORDS SUMMARY | 2024-11-08 10:55 | XMS_ITS | Encounter Summary ---
Author Organization [facility] Address [address] [place] [address] Care Team Providers Care Manager Financial Services Name Role Phone Vanessa Ogden MD Primary Care Provider [phone] Jordan Castro MD Unavailable [phone] Soila Neumann MD Primary Care Provider [phone] Encounter Details Date Type Department Care Team (Late st Contact Info) Description 06/08/2020 Wordy Message Enc [facility] Medical Group Family & Internal Medicine [facility] [address] [place] [address] [facility] Provider RE:Appointment Social History Tobacco Use Types Packs/Day Years Used Date Smoking Tobacco: Never Smokeless Tobacco: Never Alcohol Use Standard Drinks/Week Comments Yes 0 (1 standard drink = 0.6 oz pur e alcohol) Rare use PHQ-2 Answer Date Recorded PHQ-2 Score 0 09/28/2018 Comments No Sex and Gender Information Value Date Recorded Sex Assigned at Female 06/28/2021 1:39 PM TRIM SAWYER Legal Sex Female 3:51 PM TRIM SAWYER Gender Identity Female 06/28/2021 1:39 PM TRIM SAWYER Sexual Orientation Straight 06/28/2021 1: 39 PM TRIM SAWYER COVID-19 Exposure Response Date Recorded In the last month, have you been in contact with someone who was confirmed or suspected to have Coronavirus / COVID-19? No / Unsure 05/25/2020 3:08 PM TRIM SAWYER documented as of this encounter Plan of Treatment Upcoming Encounters Date Type Department Care Team (Latest Contact Info) Description 11/13/2024 3:00 PM CDT Appointment [facility] [address] [place] [address] [place] [address] [facility]. [address] [place] [address] 11/20/2024 8:40 AM CDT Hospital Encounter [facility] Interventional [place] [address] [id number] Carolyn Fernando MD Three [facility] [address] [place] [address] 11/20/2024 8:40 AM CDT - 11/20/2024 9:00 AM CDT Surgery [facility] Interventional Pain [place] [address] [id number] Carolyn Fernando MD Three [facility] [address] [place] [address] BLOCK SACROILIAC JOINT 12/05/2024 1:20 PM CDT Office Visit [facility] Orthopedic Surgery-[place] [address] [place] [address] [place] [address] [place] [address] 01/31/2025 1:20 PM CDT Office Visit [facility] Family & Internal Medicine [facility] [address] [place] [address] [place] [address] [facility]. [address] [place] [address] [phone] Scheduled Procedures Name Priority Associated Diagnoses Date/Ti me BLOCK SACROILIAC JOINT SI joint arthritis 11/20/2024 8:40 AM CDT documented as of this encounter Visit Diagnoses Not on filedocumented in this encounter Additional Health Concerns Infection Onset Date Last Indicated Resolved Time COVID-19 Rule Out 09/08/2021 09/08/2021 09/08/2021 10:37 AM TRIM SAWYER documented as of this encounter Care Teams Manager Financial Services Relationship Specialty Start Date End Date Vanessa Ogden MD PCP - General INTERNAL MEDICINE 08/14/18 08/10/22 [place] [address] [facility]. [address] [place] [address] PCP - General FAMILY PRACTICE 08/11/22 Jordan Castro MD [address] [facility] [address] [facility] [address] [place] [address] Surgeon ORTHOPAEDIC SURGERY 01/13/20 documented as of this encounter
--- OUTSIDE RECORDS SUMMARY | 2024-11-08 10:55 | XMS_ITS | Encounter Summary ---
Author Organization [facility] Address [address] [place] [address] Care Team Providers Care Dowel Pin Man Name Role Phone Jordan Csatro MD Unavailable [phone] Soila Neumann MD Primary Care Provider [phone] Encounter Details Date Type Department Care Team (Late st Contact Info) Description 06/22/2023 [employer] Message Enc [facility] Medical Group Family & Internal Medicine [address] [address] [place] Neumann [place] [id number] [place] [address]. [address] [place] [address] Referral Social History Tobacco Use Types [...] Sex Assigned at Female 06/28/2021 1:39 PM WASH TANK TENDER Legal Sex Female 3:51 PM WASH TANK TENDER Gender Identity Female 06/28/2021 1:39 PM WASH TANK TENDER Sexual Orientation Straight 06/28/2021 1: 39 PM WASH TANK TENDER Occupation Industry Job Start Date Job End Date RETIRED Not on file Not on file Not on file documented as of this encounter Plan of Treatment Upcoming Encounters Date Type Department Care Team (Latest Contact Info) Description 11/13/2024 3:[address] [facility] [address] [place] [address] [place] [address] [facility]. [address] [place] [address] 11/20/2024 8:40 AM CDT Hospital Encounter [facility] Interventional [place] [address] [id number] Carolyn Fernando MD Three [facility] [address] [place] [address] 11/20/2024 8:40 AM CDT - 11/20/2024 9:00 AM CDT Surgery [facility] Interventional Pain [place] [address] [id number] Carolyn Fernando MD Three [facility] [address] [place] [address] BLOCK SACROILIAC JOINT 12/05/2024 1:20 PM CDT Office Visit [facility] Orthopedic Surgery-[place] [address] [place] [address] [place] [address] [place], [place] 992400 01/31/2025 1:20 PM CDT Office Visit [facility] Family & Internal Medicine [facility] [address] [place] [address] [place] [address] [address] [place] [address] Scheduled Procedures Name Priority Associated Diagnoses Date/Ti me BLOCK SACROILIAC JOINT SI joint arthritis 11/20/2024 8:40 AM CDT documented as of this encounter Visit Diagnoses Not on filedocumented in this encounter Additional Health Concerns Assessment Noted Time PHQ-9 Depression Total Score: 2 08/03/19 23 2:16 PM WASH TANK TENDER documented as of this encounter Care Teams Dowel Pin Man Relationship Specialty [place] [address] [address] [place] [address] PCP - General FAMILY PRACTICE 08/11/22 Jordan Castro MD [address]12 [facility] [address] [place] [address] Surgeon ORTHOPAEDIC SURGERY 01/13/20 documented as of this encounter
--- OUTSIDE RECORDS SUMMARY | 2024-11-08 10:55 | XMS_ITS | Encounter Summary ---
Author Organization [facility] Address [address] [place] [address] Care Team Providers Care Ball Ender Name Role Phone Vanessa Ogden MD Primary Care Provider Jordan Castro MD Unavailable [phone] Soila Neumann MD Primary Care Provider [phone] Encounter Details Date Type Department Care Team (Late st Contact Info) Description 05/03/2021 [employer] Message Enc [facility] Medical Group Family & Internal Medicine [facility] [id number] [place] [address] [place] Ogden [place] [id number] [place] [address] RE: Medication Questions Social History Tobacco [...] Sex Assigned at Female 06/28/2021 1:39 PM ORE TESTER Legal Sex Female 3:51 PM ORE TESTER Gender Identity Female 06/28/2021 1:39 PM ORE TESTER Sexual Orientation Straight 06/28/2021 1: 39 PM ORE TESTER Occupation Industry Job Start Date Job End Date RETIRED Not on file Not on file Not on file COVID-19 Exposure Response Date Recorded In the last month, have you been in contact with someone who was confirmed or suspected to have Coronavirus / COVID-19? Unable to assess 05/05/2021 6:58 AM CDT documented as of this encounter Progress Notes * Gilma Barreto RN - 05/04/2021 9:42 AM CDT Virtual visit made for tomorrow 05/05/21 documented in this encounter Plan of Treatment Upcoming Encounters Date Type Department Care Team (Latest Contact Info) Description 11/13/2024 3:00 PM CDT Appointment [facility] [address] [facility] [place] [address] [place] [address] [facility]. [address] [place] [address] 11/20/2024 8:40 AM CDT Hospital Encounter [facility] Interventional [place] [address] [id number] Carolyn Fernando MD Three [facility] [address] [place] [address] 11/20/2024 8:40 AM CDT - 11/20/2024 9:00 AM CDT Surgery [facility] Interventional [place] [address] [id number] Carolyn Fernando MD Three [facility] [address] [place] [address] BLOCK SACROILIAC JOINT 12/05/2024 1:20 PM CDT Office Visit [facility] Orthopedic Surgery[place] [address] [place] [address] [place] [address] [place] [address] 01/31/2025 1:20 PM CDT Office Visit [facility] Family & Internal Medicine [facility] [place] [facility] [address] [place] [address] [place] [address] [facility]. [address] [place], [place] [phone] Scheduled Procedures Name Priority Associated Diagnoses Date/Ti me BLOCK SACROILIAC JOINT SI joint arthritis 11/20/2024 8:40 AM CDT documented as of this encounter Visit Diagnoses Not on filedocumented in this encounter Additional Health Concerns Infection Onset Date Last Indicated Resolved Time COVID-19 Rule Out 09/08/2021 09/08/2021 09/08/2021 10:37 AM ORE TESTER documented as of this encounter Care Teams Ball Ender Relationship Specialty Start Date End Date Vanessa Ogden MD PCP - General INTERNAL MEDICINE 08/14/18 08/10/22 [place] [address] [facility] [address] [place], [place] [phone] PCP - General FAMILY PRACTICE 08/11/22 Jordan Castro MD 6812 [facility] [address] [place], [place] 0736[address] Surgeon ORTHOPAEDIC SURGERY 01/13/20 documented as of this encounter
--- OUTSIDE RECORDS SUMMARY | 2024-11-08 10:55 | XMS_ITS | Encounter Summary ---
Author Organization [facility] Address [address] [place] [address] Care Team Providers Care Therapist Phys Name Role Phone Vanessa Ogden MD Primary Care Provider [phone] Jordan Castro MD Unavailable [phone] Soila Neumann MD Primary Care Provider [phone] Encounter Details Date Type Department Care Team (Late st Contact Info) Description 06/21/2021 [employer] Message Enc [facility] Medical Group Family & Internal Medicine [facility] [address] [place] [address] [place] Ogden [place] [phone] [place] [address] Question Social History Tobacco Use Types Packs/Day [...] Sex Assigned at Female 06/28/2021 1:39 PM BORING INSPECTOR Legal Sex Female 3:51 PM BORING INSPECTOR Gender Identity Female 06/28/2021 1:39 PM BORING INSPECTOR Sexual Orientation Straight 06/28/2021 1: 39 PM BORING INSPECTOR Occupation Industry Job Start Date Job End Date RETIRED Not on file Not on file Not on file documented as of this encounter Plan of Treatment Upcoming Encounters Date Type Department Care Team (Latest Contact Info) Description 11/13/2024 3:00 PM CDT Appointment [facility] [address] [place] [address] [place] [address] [facility]. [address] [place] [address] 11/20/2024 8:40 AM CDT Hospital Encounter [facility] Interventional [place] [address] [id number] Carolyn Fernando MD Three [facility] [address] [place] [address] 11/20/2024 8:40 AM CDT - 11/20/2024 9:00 AM CDT Surgery [facility] Interventional [place] [address] [id number] Carolyn Fernando MD Three [facility] [address] [place] [address] BLOCK SACROILIAC JOINT 12/05/2024 1:20 PM CDT Office [facility] [address] [place], [place] [address] [place] [address] [place] [address] 01/31/2025 1:20 PM CDT Office Visit [facility] Medical Group Family & Internal Medicine [facility] [address] [place] [address] [place] [address] [facility]. [address] [place] [address] Scheduled Procedures Name Priority Associated Diagnoses Date/Ti me BLOCK SACROILIAC JOINT SI joint arthritis 11/20/2024 8:40 AM CDT documented as of this encounter Visit Diagnoses Not on filedocumented in this encounter Additional Health Concerns Infection Onset Date Last Indicated Resolved Time COVID-19 Rule Out 09/08/2021 09/08/2021 09/08/2021 10:37 AM BORING INSPECTOR documented as of this encounter Care Teams Therapist Phys Relationship Specialty Start Date End Date Vanessa Ogden MD PCP - General INTERNAL MEDICINE 08/14/18 08/10/22 [place] [address] [facility]. [address] [place] [address] PCP - General FAMILY PRACTICE 08/11/22 Jordan Castro MD 6812 [facility] [address] [place] [address] Surgeon ORTHOPAEDIC SURGERY 01/13/20 documented as of this encounter
--- OUTSIDE RECORDS SUMMARY | 2024-11-08 10:55 | XMS_ITS | Encounter Summary ---
Author Organization [facility] Address [address] [place] [address] Care Team Providers Care Management Professional Name Role Phone Vanessa Ogden MD Primary Care Provider [phone] Soila Neumann MD Primary Care Provider [phone] Reason for Visit * Reason Onset Date Comments Scheduling 09/05/2022 Left VM for resc heduling due to infusion center closing early 09/09/22 Encounter Details Date Type Department Care Team (Late st Contact Info) Description 09/05/2022 Telephone [facility] [address] [place] [address] Lisa Mayo, RN Scheduling (Left VM for rescheduling due to infusion center closing early 09/09/22) Social History Tobacco Use Types Packs/Day Years Used Date Smoking Tobacco: Former Cigarettes Smokeless Tobacco: Never Comments:quit 1976 Alcohol Use Standard Drinks/Week Comments Yes 0 (1 standard drink = 0.6 oz pur e alcohol) OCC PHQ-2 Answer Date Recorded PHQ2 TOTAL SCORE 0 07/29/2022 Comments No Sex and Gender Information Value Date Recorded Sex Assigned at Female 08/31/2020 11:23 AM MILD DISABILITIES TEACHER Legal Sex Female 6:25 PM MILD DISABILITIES TEACHER Gender Identity Female 08/31/2020 11:23 AM MILD DISABILITIES TEACHER Sexual Orientation Straight 08/31/2020 11 :23 AM MILD DISABILITIES TEACHER documented as of this encounter Plan of Treatment Upcoming Encounters Date Type Department Care Team (Late st Contact Info) Description 11/22/2024 12:00 PM CDT Appointment [facility] Medical [facility] - Rheumatology [address] [place] [address] [address] 11/29/2024 2:00 PM CDT Office Visit [facility] [place], [place] [phone] Kami Llanos MD [facility] [place] [phone] 12/20/2024 10:00 AM CDT Appointment [facility] - [facility] [place], [place] [phone] 01/17/2025 1:00 PM CDT Appointment [facility] [address] [place], [place] [address], [place] [id number] 02/14/2025 2:00 PM CDT Appointment [facility] [address] [place], [place] [address] [address] 05/09/2025 1:00 PM MILD DISABILITIES TEACHER Appointment [facility] Medical [facility] - [facility] [place], [place] [phone] 05/09/2025 1:20 PM MILD DISABILITIES TEACHER Office Visit [facility] - [facility] [place], [place] [phone] Kami Llanos MD [facility] [place] [phone] documented as of this encounter Visit Diagnoses Not on filedocumented in this encounter Care Teams Management Professional Relationship Specialty Start Date End Date Vanessa Ogden MD PCP - General Internal Medicine 05/19/21 06/13/23 [place] [address] [address] PCP - General Family Medicine 06/14/23 documented as of this encounter
--- OUTSIDE RECORDS SUMMARY | 2024-11-08 10:55 | XMS_ITS | Encounter Summary ---
Author Organization [facility] Address [address] [place] [address] Care Team Providers Care Material Expediter Name Role Phone Vanessa Ogden MD Primary Care Provider [phone] Jordan Castro MD Unavailable [phone] Soila Neumann MD Primary Care Provider [phone] Encounter Details Date Type Department Care Team (Late st Contact Info) Description 11/13/2020 Fuelmaxx Inct Message Enc [facility] Medical Group Family & Internal Medicine [facility] [address] [place] [phone] [place] Ogden [place] [address] [place] [address] Referral Request Social History Tobacco Use [...] Sex Assigned at Female 06/28/2021 1:39 PM BRANCH SALES AND SERVICE REPRESENTATIVE Legal Sex Female 3:51 PM BRANCH SALES AND SERVICE REPRESENTATIVE Gender Identity Female 06/28/2021 1:39 PM BRANCH SALES AND SERVICE REPRESENTATIVE Sexual Orientation Straight 06/28/2021 1: 39 PM BRANCH SALES AND SERVICE REPRESENTATIVE COVID-19 Exposure Response Date Recorded In the last month, have you been in contact with someone who was confirmed or suspected to have Coronavirus / COVID-19? No / Unsure 11/03/2020 2:38 PM CDT documented as of this encounter Progress Notes * Kimberly Noriega MA - 11/16/2020 1:14 PM CDT Referral entered * Kimberly Noriega MA - 11/13/2020 2:15 PM CDT Please advise documented in this encounter Plan of Treatment Upcoming Encounters Date Type Department Care Team (Latest Contact Info) Description 11/13/2024 3:00 PM CDT Appointment [facility] [address] [place] [address] [place] [address] [facility]. [address] [place] [address] 11/20/2024 8:40 AM CDT Hospital Encounter [facility] Interventional [place] [address] [id number] Carolyn Fernando MD Three [facility] [address] [facility] [place] [address] 11/20/2024 8:40 AM CDT - 11/20/2024 9:00 AM CDT Surgery [facility] [place]ventional [place] [address] [id number] Carolyn Fernando MD Three [facility] [address] [place] [address] BLOCK SACROILIAC JOINT 12/05/2024 1:20 PM CDT Office Visit [facility] Orthopedic Surgery-[place] [address] [place] [address] [place] [address] [place] [address] 01/31/2025 1:20 PM CDT Office Visit [facility] Family & Internal Medicine [facility] [address] [place] [address] [place] [address] [facility]. [address] [place] [address] Scheduled Procedures Name Priority Associated Diagnoses Date/Ti wa BLOCK SACROILIAC JOINT SI joint arthritis 11/20/2024 8:40 AM CDT documented as of this encounter Visit Diagnoses Not on filedocumented in this encounter Additional Health Concerns Infection Onset Date Last Indicated Resolved Time COVID-19 Rule Out 09/08/2021 09/08/2021 09/08/2021 10:37 AM BRANCH SALES AND SERVICE REPRESENTATIVE documented as of this encounter Care Teams Material Expediter Relationship Specialty Start Date End Date Vanessa Ogden MD PCP - General INTERNAL MEDICINE 08/14/18 08/10/22 [place] [address] [facility] [address] [place] [address] PCP - General FAMILY PRACTICE 08/11/22 Jordan Castro MD [address] [facility] [address] [facility] [address] [place] [address] Surgeon ORTHOPAEDIC SURGERY 01/13/20 documented as of this encounter
--- OUTSIDE RECORDS SUMMARY | 2024-11-08 10:55 | XMS_ITS | Encounter Summary ---
Author Organization [facility] Address [address] [place] [address] Care Team Providers Care Line Pilot Name Role Phone Vanessa Ogden MD Primary Care Provider [phone] Jordan Castro MD Unavailable [phone] Soila Neumann MD Primary Care Provider [phone] Encounter Details Date Type Department Care Team (Late st Contact Info) Description 02/18/2021 Total-traxt Message Enc [facility] Medical Group Family & Internal Medicine [facility] [address] [place] [address] [place] Ogden [place] [address] [place] [address] RE: Medication Questions Social History Tobacco [...] Sex Assigned at Female 06/28/2021 1:39 PM ROUGE MIXER Legal Sex Female 3:51 PM ROUGE MIXER Gender Identity Female 06/28/2021 1:39 PM ROUGE MIXER Sexual Orientation Straight 06/28/2021 1: 39 PM ROUGE MIXER COVID-19 Exposure Response Date Recorded In the last month, have you been in contact with someone who was confirmed or suspected to have Coronavirus / COVID-19? No / Unsure 02/03/2021 1:16 PM CDT documented as of this encounter Progress Notes * Gilma Barreto RN - 02/18/2021 9:54 AM CDT Will discuss with Dr. Mendez when returns to clinic documented in this encounter Plan of Treatment Upcoming Encounters Date Type Department Care Team (Latest Contact Info) Description 11/13/2024 3:00 PM CDT Appointment [facility] [address] [place] [address] [place] [address] [facility]. [address] [place] [address] 11/20/2024 8:40 AM CDT Hospital Encounter [facility] [place]ventional [place] [address] [id number] Carolyn Fernando MD Three [facility] [address] [place] [address] 11/20/2024 8:40 AM CDT - 11/20/2024 9:00 AM CDT Surgery [facility] Interventional [place] [address] [id number] Carolyn Fernando MD Three [facility] [address] [place] [address] BLOCK SACROILIAC JOINT 12/05/2024 1:20 PM CDT Office Visit [facility] Orthopedic Surgery-[place] [address] [place] [address] Otero JoseDO [address] [place] [address] 01/31/2025 1:20 PM CDT Office Visit [facility] Family & Internal Medicine [facility] [address] [place] [address] [place] [address] [facility]. [address] [place] [address] Scheduled Procedures Name Priority Associated Diagnoses Date/Ti me BLOCK SACROILIAC JOINT SI joint arthritis 11/20/2024 8:40 AM CDT documented as of this encounter Visit Diagnoses Not on filedocumented in this encounter Additional Health Concerns Infection Onset Date Last Indicated Resolved Time COVID-19 Rule Out 09/08/2021 09/08/2021 09/08/2021 10:37 AM ROUGE MIXER documented as of this encounter Care Teams Line Pilot Relationship Specialty Start Date End Date Vanessa Ogden MD PCP - General INTERNAL MEDICINE 08/14/18 08/10/22 [place] [address] [facility] [address] [place] [address] PCP - General FAMILY PRACTICE 08/11/22 Jordan Castro MD [address] [facility] [address] [facility] 123 [place] [address] Surgeon ORTHOPAEDIC SURGERY 01/13/20 documented as of this encounter
--- OUTSIDE RECORDS SUMMARY | 2024-11-08 10:55 | XMS_ITS | Encounter Summary ---
Author Organization [facility] Address [address] [place] [address] Care Team Providers Care Documentation Consultant Name Role Phone Vanessa Ogden MD Primary Care Provider [phone] Jordan Castro MD Unavailable [phone] Soila Neumann MD Primary Care Provider [phone] Encounter Details Date Type Department Care Team (Late st Contact Info) Description 02/17/2021 Jamant Message Enc [facility] Family & Internal Medicine [facility] [address] [place] [address] Vanessa Ogden [place] [address] [place] [address] Question Social History Tobacco Use Types [...] Sex Assigned at Female 06/28/2021 1:39 PM FRONT ELEVATOR OPERATOR Legal Sex Female 3:51 PM FRONT ELEVATOR OPERATOR Gender Identity Female 06/28/2021 1:39 PM FRONT ELEVATOR OPERATOR Sexual Orientation Straight 06/28/2021 1: 39 PM FRONT ELEVATOR OPERATOR COVID-19 Exposure Response Date Recorded In the last month, have you been in contact with someone who was confirmed or suspected to have Coronavirus / COVID-19? No / Unsure 02/03/2021 1:16 PM CDT documented as of this encounter Plan of Treatment Upcoming Encounters Date Type Department Care Team (Latest Contact Info) Description 11/13/2024 3:00 PM CDT Appointment [facility] [address] [place] [address] [place] [address] [facility]. [address] [place] [address] 11/20/2024 8:40 AM CDT Hospital Encounter [facility] Interventional [place] [address] [id number] Carolyn Fernando MD Three [facility] [address] [place] [address] 11/20/2024 8:40 AM CDT - 11/20/2024 9:00 AM CDT Surgery [facility] Interventional [place] [address] [id number] Carolyn Fernando MD Three [facility] [address] [place] [address] BLOCK SACROILIAC JOINT 12/05/2024 1:20 PM CDT [facility] Orthopedic [facility] [address] [address] [place], [place] [address] [place] [address] [address] [place], [place] [address] 01/31/2025 1:20 PM CDT [facility] Family & Internal Medicine [facility] [address] [place] [address] [place] [address] [address] [place] [address] Scheduled Procedures Name Priority Associated Diagnoses Date/Ti me BLOCK SACROILIAC JOINT SI joint arthritis 11/20/2024 8:40 AM CDT documented as of this encounter Visit Diagnoses Not on filedocumented in this encounter Additional Health Concerns Infection Onset Date Last Indicated Resolved Time COVID-19 Rule Out 09/08/2021 09/08/2021 09/08/2021 10:37 AM FRONT ELEVATOR OPERATOR documented as of this encounter Care Teams Documentation Consultant Relationship Specialty Start Date End Date Vanessa Ogden MD PCP - General INTERNAL MEDICINE 08/14/18 08/10/22 [place] [address] [address] [place] [address] PCP - General FAMILY PRACTICE 08/11/22 Jordan Castro MD 6812 [facility] [address] [place], [place] [id number] Surgeon ORTHOPAEDIC SURGERY 01/13/20 documented as of this encounter
--- OUTSIDE RECORDS SUMMARY | 2024-11-08 10:55 | XMS_ITS | Encounter Summary ---
Author Organization [facility] Address [address] [place] [address] Care Team Providers Care Buffet Manager Name Role Phone Vanessa Ogden MD Primary Care Provider [phone] Jordan Castro MD Unavailable [phone] Soila Neumann MD Primary Care Provider [phone] Encounter Details Date Type Department Care Team (Late st Contact Info) Description 06/02/2020 LMN-1t Message Enc [facility] Medical Group Family & Internal Medicine [facility] [address] [place] [address] Vanessa Ogden [place] [address] [place] [address] RE: Question Social History Tobacco Use Types Packs/Day Years Used Date Smoking Tobacco: Never Smokeless Tobacco: Never Alcohol Use Standard Drinks/Week Comments Yes 0 (1 standard drink = 0.6 oz pur e alcohol) Rare use PHQ-2 Answer Date Recorded PHQ-2 Score 0 09/28/2018 Comments No Sex and Gender Information Value Date Recorded Sex Assigned at Female 06/28/2021 1:39 PM MILK TANKER DRIVER Legal Sex Female 3:51 PM MILK TANKER DRIVER Gender Identity Female 06/28/2021 1:39 PM MILK TANKER DRIVER Sexual Orientation Straight 06/28/2021 1: 39 PM MILK TANKER DRIVER COVID-19 Exposure Response Date Recorded In the last month, have you been in contact with someone who was confirmed or suspected to have Coronavirus / COVID-19? No / Unsure 05/25/2020 3:08 PM MILK TANKER DRIVER documented as of this encounter Plan of Treatment Upcoming Encounters Date Type Department Care Team (Latest Contact Info) Description 11/13/2024 3:[address] [facility] [address] [place], [place] [phone] [place] [address] [facility]. [address] [place] [address] 11/20/2024 8:40 AM CDT Hospital Encounter [facility] Interventional [place] [address] [id number] Carolyn Fernando MD Three [facility] [address] [place] [address] 11/20/2024 8:40 AM CDT - 11/20/2024 9:00 AM CDT Surgery [facility] Interventional [place] [address] [id number] Carolyn Fernando MD Three [facility] [address] [place] [address] BLOCK SACROILIAC JOINT 12/05/2024 1:20 PM CDT [facility] [address] [place] [address] [place] [address] [place] [address] 01/31/2025 1:20 PM CDT Office Visit [facility] Family & Internal Medicine [facility] [address] [place] [address] [place] [address] [facility]. [address] [place] [address] [phone] Scheduled Procedures Name Priority Associated Diagnoses Date/Ti me BLOCK SACROILIAC JOINT SI joint arthritis 11/20/2024 8:40 AM CDT documented as of this encounter Visit Diagnoses Not on filedocumented in this encounter Additional Health Concerns Infection Onset Date Last Indicated Resolved Time COVID-19 Rule Out 09/08/2021 09/08/2021 09/08/2021 10:37 AM MILK TANKER DRIVER documented as of this encounter Care Teams Buffet Manager Relationship Specialty Start Date End Date Vanessa Ogden MD PCP - General INTERNAL MEDICINE 08/14/18 08/10/22 [place] [address] [facility] [address] [place] [address] PCP - General FAMILY PRACTICE 08/11/22 Jordan Castro MD 6812 [facility] [address] [facility] 123 [place] [address] Surgeon ORTHOPAEDIC SURGERY 01/13/20 documented as of this encounter
--- OUTSIDE RECORDS SUMMARY | 2024-11-08 10:55 | XMS_ITS | Encounter Summary ---
Author Organization [facility] Address [address] [facility] [place] [address] Care Team Providers Care Washer Repairman Name Role Phone Sofi Davis MD Primary Care Provider + Vanessa Ogden MD Primary Care Provider [phone] Soila Neumann MD Primary Care Provider [phone] Encounter Details Date Type Department Care Team (Late st Contact Info) Description 05/18/2021 Lab Requisition [facility] Care D[facility] Lab [address] [facility] [address] Francisco Sims MD [address] [facility] [place] [address] Social History Tobacco Use Types Packs/Day Years Used Date Smoking Tobacco: Former Cigarettes Smokeless Tobacco: Never Comments:quit 1977 Alcohol Use Standard Drinks/Week Comments Yes 0 (1 standard drink = 0.6 oz pur e alcohol) OCC Comments No Sex and Gender Information Value Date Recorded Sex Assigned at Female 08/31/2020 11:23 AM DIRECTOR OF VENDOR MANAGEMENT Legal Sex Female 6:25 PM DIRECTOR OF VENDOR MANAGEMENT Gender Identity Female 08/31/2020 11:23 AM DIRECTOR OF VENDOR MANAGEMENT Sexual Orientation Straight 08/31/2020 11 :23 AM DIRECTOR OF VENDOR MANAGEMENT documented as of this encounter Plan of Treatment Upcoming Encounters Date Type Department Care Team (Late st Contact Info) Description 11/22/2024 12:00 PM CDT Appointment [facility] Medical Group - Rheumatology [address] [place] [address] 11/29/2024 2:00 PM CDT Office Visit [facility] - Rheumatology [address] [place] [address] [phone] K[address] L[address] [facility] [place] [phone] 12/20/2024 10:00 AM CDT Appointment [facility] - Rheumatology [address] [place] [address] [phone] 01/17/2025 1:00 PM CDT Appointment [facility] - Rheumatology [address] [place] [address] [phone] 02/14/2025 2:00 PM CDT Appointment [facility] - Rheumatology [address] [place] [address] [phone] 05/09/2025 1:00 PM DIRECTOR OF VENDOR MANAGEMENT Appointment [facility] - Rheumatology [address] [place] [address] [phone] 05/09/2025 1:20 PM DIRECTOR OF VENDOR MANAGEMENT Office Visit [facility] - Rheumatology [address] [place] [address] [phone] Kami Llanos MD [address] [place] [phone] documented as of this encounter Procedures Procedure Name Priority Date/Time Associated Diagnosis Comments DERMATOPATHOLOGY Routine 05/14/2021 12:0 0 AM DIRECTOR OF VENDOR MANAGEMENT documented in this encounter Results * DERMATOPATHOLOGY (05/14/2021 12:00 AM DIRECTOR OF VENDOR MANAGEMENT) Case Report Dermatopathology Report Case: [id number] Authorizing Provider: Francisco Sims MD Collected: 05/14/2021 12:00 AM Ordering Location: [facility] DermPath Lab Received: 05/18/2021 06:20 AM Pathologist: Edith Powell MD Specimens: A) - Skin, left shoulder B) - Skin, center back 4:44 PM [facility] DERMATOPATHOLOGY LABORATORY Final Diagnosis Specimen A. SKIN, left shoulder: COMPOUND MELANOCYTIC NEVUS (D22.62) JUNCTIONAL MELANOCYTIC NEVUS (D22.62) SOLAR LENTIGO (L81.4) (see microscopic description and comment) Specimen B. SKIN, center back: INTRADERMAL MELANOCYTIC NEVUS WITH CONGENITAL FEATURES (D22.9) 4:44 PM [facility] DERMATOPATHOLOGY LABORATORY Clinical History A: SK vs nevus vs MM. Path# [id number] B: SK vs nevus vs MM. Path# [id number] 4:44 PM [facility] DERMATOPATHOLOGY [facility] Gross Description Specimen A: Received is one formalin filled container labeled with the patient's name and designated left shoulder. The specimen consists of a shave biopsy measuring [id number]. Jar 0. Specimen B: Received is one formalin filled container labeled with the patient's name and designated center back. The specimen consists of a shave biopsy measuring [id number]. Jar 0. 4:44 PM [facility] DERMATOPATHOLOGY [facility]ORATORY Microscopic Description Specimen A. SKIN, left shoulder: There are nests of melanocytes at the dermal-epidermal junction and within the dermis. There are adjacent nests of melanocytes at the dermal-epidermal junction. The background epidermis demonstrates a slight increase in epidermal thickness with lentiginous buds of hyperpigmented keratinocytes. The number of melanocytes is only mildly increased. In the dermis, there is basophilic degeneration of elastic fibers. MART-1/Melan-A immunohistochemical stain highlights the melanocytes as above. COMMENT: A nevus spilus is favored but a collision of benign nevi and a solar lentigo is also considered. Specimen B. SKIN, center back: There are nests of cytologically bland melanocytes within the dermis. Some of these melanocytes are concentrated around blood vessels and adnexal structures. 4:44 PM [facility] DERMATOPATHOLOGY LABORATORY Disclaimer An external and internal positive and negative controls are appropriate for the histochemical, immunohistochemical and immunofluorescence stain(s) in this case (if any), except where stated explicitly. The performance characteristics of the stain(s) cited in this report were developed and its performance characteristic determined by the Dermatopathology Laboratory at [facility], directed by Dr. Jaret King. These tests need not be, and therefore are not, approved by the [place] Food and Drug Administration. The tests are used for clinical purposes. Billing Codes Specimen Charges Stain Charges 31342 00241 1 1 07962 1 1 4:44 PM DIRECTOR OF VENDOR MANAGEMENT DERMATOPATHOLOGY LABORATORY Embedded Images 4:44 PM DIRECTOR OF VENDOR MANAGEMENT DERMATOPATHOLOGY LABORATORY Pathology/Cytology TISSUE SPECIMEN FROM SKIN / Unknown 05/14/2021 05/18/2021 6:20 AM DIRECTOR OF VENDOR MANAGEMENT Miscellaneous samples (specimen) TISSUE SPECIMEN FROM SKIN / Unknown 05/14/2021 05/18/2021 6:20 AM DIRECTOR OF VENDOR MANAGEMENT Francisco Sims MD LAB - PATHOLOGY/CYTOLOGY ORDER UMAIR Final Result DERMATOPATHOLOGY LABORATORY [facility] - Department of Dermatology [facility] Medicine [address] [place] [address], [address] [phone] documented in this encounter Visit Diagnoses Not on filedocumented in this encounter Care Teams Washer Repairman Relationship Specialty Start Date End Date Sofi Davis MD [address] [facility] [address] [place] [address] PCP - General 05/17/21 05/18/21 Vanessa Ogden MD [address] [place] [address] PCP - General Internal Medicine 05/19/21 06/13/23 [place] [address] [address] PCP - General Family Medicine 06/14/23 documented as of this encounter
--- OUTSIDE RECORDS SUMMARY | 2024-11-08 12:10 | XMS_ITS | Encounter Summary ---
Author Organization [facility] Address [address] [place] [address] Care Team Providers Care Shooting Gallery Operator Name Role Phone Vanessa Ogden MD Primary Care Provider [phone] Jordan Castro MD Unavailable [phone] Soila Neumann MD Primary Care Provider Encounter Details Date Type Department Care Team (Late st Contact Info) Description 08/30/2021 Brozengot Message Enc [facility] Family & Internal Medicine [facility] [id number] [place] [phone] [place] [id number] [place] [address] Addendum to email request 08/30/21 Social [...] Sex Assigned at Female 06/28/2021 1:39 PM CRUSHER FOREMAN Legal Sex Female 3:51 PM CRUSHER FOREMAN Gender Identity Female 06/28/2021 1:39 PM CRUSHER FOREMAN Sexual Orientation Straight 06/28/2021 1: 39 PM CRUSHER FOREMAN Occupation Industry Job Start Date Job End Date RETIRED Not on file Not on file Not on file COVID-19 Exposure Response Date Recorded In the last 10 days, have yo u been in contact with someone who was confirmed or suspected to have Coronavirus/COVID-19? No / Unsure 08/13/2021 11:10 AM CRUSHER FOREMAN documented as of this encounter Plan of Treatment Upcoming Encounters Date Type Department Care Team (Latest Contact Info) Description 11/13/2024 3:00 PM CDT Appointment [facility] [address] [place] [address] [place] [address] [facility]. [address] [place] [address] 11/20/2024 8:40 AM CDT Hospital Encounter [facility] Interventional [place] [address] [id number] Carolyn Fernando MD Three [address] [address] 11/20/2024 8:40 AM CDT - 11/20/2024 9:[address] [facility] Interventional [facility] [place] [address] [id number] Carolyn Fernando MD Three [facility] [address] [place] [address] BLOCK SACROILIAC JOINT 12/05/2024 1:20 PM CDT Office Visit [facility] Orthopedic Surgery-[place] [address] [place] [address] [place] [address] [place] [address] 01/31/2025 1:20 PM CDT Office Visit [facility] Family & Internal Medicine [facility] [address] [place] [address] [place] [address] [facility]. [address] [place] [address] Scheduled Procedures Name Priority Associated Diagnoses Date/Ti me BLOCK SACROILIAC JOINT SI joint arthritis 11/20/2024 8:40 AM CDT documented as of this encounter Visit Diagnoses Not on filedocumented in this encounter Additional Health Concerns Infection Onset Date Last Indicated Resolved Time COVID-19 Rule Out 09/08/2021 09/08/2021 09/08/2021 10:37 AM CRUSHER FOREMAN documented as of this encounter Care Teams Shooting Gallery Operator Relationship Specialty Start Date End Date Vanessa Ogden MD PCP - General INTERNAL MEDICINE 08/14/18 08/10/22 [place] [address] [facility] [address] [place] [address] PCP - General FAMILY PRACTICE 08/11/22 Jordan Castro MD [address] [facility] [address] [facility] [address] [place] [address] Surgeon ORTHOPAEDIC SURGERY 01/13/20 documented as of this encounter
--- OUTSIDE RECORDS SUMMARY | 2024-11-08 12:10 | XMS_ITS | Encounter Summary ---
Author Organization [facility] Address [address] [place] [address] Care Team Providers Care Cook Night Name Role Phone Vanessa Ogden MD Primary Care Provider [phone] Jordan Castro MD Unavailable [phone] Soila Neumann MD Primary Care Provider [phone] Encounter Details Date Type Department Care Team (Late st Contact Info) Description 10/21/2019 MyChart Message Enc [facility] Family & Internal Medicine [facility] [address] [place] [address] [place] [address] [place] [address] RE: Follow Up/Update Social History Tobacco Use Types Packs/Day Years Used Date Smoking Tobacco: Never Smokeless Tobacco: Never Alcohol Use Standard Drinks/Week Comments Yes 0 (1 standard drink = 0.6 oz pur e alcohol) Rare use PHQ-2 Answer Date Recorded PHQ-2 Score 0 09/28/2018 Comments No Sex and Gender Information Value Date Recorded Sex Assigned at Female 06/28/2021 1:39 PM MILL REPRESENTATIVE Legal Sex Female 3:51 PM MILL REPRESENTATIVE Gender Identity Female 06/28/2021 1:39 PM MILL REPRESENTATIVE Sexual Orientation Straight 06/28/2021 1: 39 PM MILL REPRESENTATIVE documented as of this encounter Plan of Treatment Upcoming Encounters Date Type Department Care Team (Latest Contact Info) Description 11/13/2024 3:00 PM CDT Appointment [facility] [address] [place] [address] [place] [address] [facility]. [address] [place] [address] 11/20/2024 8:40 AM CDT Hospital Encounter [facility] Interventional [place] [address] [id number] Carolyn Fernando MD Three [facility] [address] [place] [address] 11/20/2024 8:40 AM CDT - 11/20/2024 9:00 AM CDT Surgery [facility] Interventional Pain [place] [address] [id number] Carolyn Fernando MD Three [facility] [address] [place] [address] BLOCK SACROILIAC JOINT 12/05/2024 1:20 PM CDT Office Visit [facility] Orthopedic Surgery-[place] [address] [place] [address] [place] [address] [place] [address] 01/31/2025 1:20 PM CDT Office Visit [facility] Medical [facility] Family & Internal Medicine [facility] [address] [place] [address] [place] [address] [facility] [place]. [address] [place] [address] Scheduled Procedures Name Priority Associated Diagnoses Date/Ti me BLOCK SACROILIAC JOINT SI joint arthritis 11/20/2024 8:40 AM CDT documented as of this encounter Visit Diagnoses Not on filedocumented in this encounter Additional Health Concerns Infection Onset Date Last Indicated Resolved Time COVID-19 Rule Out 09/08/2021 09/08/2021 09/08/2021 10:37 AM MILL REPRESENTATIVE documented as of this encounter Care Teams Cook Night Relationship Specialty Start Date End Date Vanessa Ogden MD PCP - General INTERNAL MEDICINE 08/14/18 08/10/22 [place] [address] [facility]. [address] [place] [address] PCP - General FAMILY PRACTICE 08/11/22 Jordan Castro MD 6812 [facility] [address] [facility] [address] [place] [address] Surgeon ORTHOPAEDIC SURGERY 01/13/20 documented as of this encounter
--- OUTSIDE RECORDS SUMMARY | 2024-11-08 12:10 | XMS_ITS | Encounter Summary ---
Author Organization [facility] Address [address] [place] [address] Care Team Providers Care Guide Foreign Tour Name Role Phone Vanessa Ogden MD Primary Care Provider Jordan Castro MD Unavailable [phone] Soila Neumann MD Primary Care Provider [phone] Encounter Details Date Type Department Care Team (Late st Contact Info) Description 09/04/2021 MyCAnimal Kingdomt Message Enc [facility] Family & Internal Medicine [facility] [address] [place] [address] Vanessa Ogden [place] [address] [place] [address] [place] 7.5 refill Social History Tobacco Use Types [...] Sex Assigned at Female 06/28/2021 1:39 PM SYSTEMS SPECIALIST Legal Sex Female 3:51 PM SYSTEMS SPECIALIST Gender Identity Female 06/28/2021 1:39 PM SYSTEMS SPECIALIST Sexual Orientation Straight 06/28/2021 1: 39 PM SYSTEMS SPECIALIST Occupation Industry Job Start Date Job End Date RETIRED Not on file Not on file Not on file COVID-19 Exposure Response Date Recorded In the last 10 days, have yo u been in contact with someone who was confirmed or suspected to have Coronavirus/COVID-19? No / Unsure 09/07/2021 11:57 AM SYSTEMS SPECIALIST documented as of this encounter Progress Notes * Tatyana Torres MA - 09/06/2021 3:02 PM CST Appointment scheduled. EMS SPECIALIST * Vanessa Ogden MD - 09/06/2021 1:28 PM CST On 06/30/21 was given a script for Feb to be filled 08/25/21 or 5 mg bid # 60 (since we were going into warmer weather.) I am not filling controlled substances for call ins. If pharmacy cannot find your script we can perhaps do a virtual phone visit EMS SPECIALIST * Tatyana Torres MA - 09/06/2021 1:19 PM CST Sent to Dr. Mendez for approval. EMS SPECIALIST documented in this encounter Plan of Treatment Upcoming Encounters Date Type Department Care Team (Latest Contact Info) Description 11/13/2024 3:00 PM CDT Appointment [facility] [address] [place], [place] [phone] [place] [address] [address] [place], [place] [phone] 11/20/2024 8:40 AM CDT Hospital Encounter [facility] Interventional Pain Management Center [address] [facility] [address] [place] [address] [phone] Carolyn Fernando MD Three [facility] [address] [place] [address] 11/20/2024 8:40 AM CDT - 11/20/2024 9:00 AM CDT Surgery [facility] [place] [address] [id number] Carolyn Fernando MD Three [facility] [address] [place] [address] BLOCK SACROILIAC JOINT 12/05/2024 1:20 PM CDT Office Visit [facility] Orthopedic Surgery-[place] [address] [place] [address] [place] [address] [place] [address] 01/31/2025 1:20 PM CDT Office Visit [facility] Family & Internal Medicine [address] [address] Soila Neumann MD [address] [place] [address] [place] [address] Scheduled Procedures Name Priority Associated Diagnoses Date/Ti al BLOCK SACROILIAC JOINT SI joint arthritis 11/20/2024 8:40 AM CDT documented as of this encounter Visit Diagnoses Diagnosis Chronic pain syndrome SI joint arthritis Sacroiliitis, not elsewhere classified documented in this encounter Additional Health Concerns Infection Onset Date Last Indicated Resolved Time COVID-19 Rule Out 09/08/2021 09/08/2021 09/08/2021 10:37 AM SYSTEMS SPECIALIST documented as of this encounter Care Teams Guide Foreign Tour Relationship Specialty Start Date End Date Vanessa Ogden MD PCP - General INTERNAL MEDICINE 08/14/18 08/10/22 [place] [address] [facility] [address] [place] [address] PCP - General FAMILY PRACTICE 08/11/22 Jordan Castro MD 6812 [facility] [address] [facility] [address] [place] [address] Surgeon ORTHOPAEDIC SURGERY 01/13/20 documented as of this encounter
--- OUTSIDE RECORDS SUMMARY | 2024-11-08 12:10 | XMS_ITS | Encounter Summary ---
Author Organization [facility] Address [address] [place] [address] Care Team Providers Care Woods Warden Name Role Phone Vanessa Ogden MD Primary Care Provider [phone] Jordan Castro MD Unavailable [phone] Soila Neumann MD Primary Care Provider [phone] Encounter Details Date Type Department Care Team (Latest Contact Info) Description 11/13/2021 Otonomy Message Enc [facility] Foot & Ankle Specialists [facility] [address] [place] [address] Ricky Ramsey, DPM [address] [place] [phone] msg I sent [address] Dr. Llanos ([facility]) music sound light technician Social History Tobacco Use Types Packs/Day Years [...] Sex Assigned at Female 06/28/2021 1:39 PM DOOR PANELER Legal Sex Female 3:51 PM DOOR PANELER Gender Identity Female 06/28/2021 1:39 PM DOOR PANELER Sexual Orientation Straight 06/28/2021 1: 39 PM DOOR PANELER Occupation Industry Job Start Date Job End [...] Info) Description 11/13/2024 3:00 PM CDT Appointment [facility] [address] [facility] [place] [address] [place] [address] [facility]. [address] [place] [phone] 11/20/2024 8:40 AM CDT Hospital Encounter [facility] [place]ventional [place] [address] [id number] Carolyn Fernando MD [address] [address] 11/20/2024 8:40 AM CDT - 11/20/2024 9:00 AM CDT Surgery [facility] [place]ventional [place] [address] [id number] Carolyn Fernando MD Three [address] [address] BLOCK SACROILIAC JOINT 12/05/2024 1:20 PM CDT Office Visit [facility] Group Orthopedic Surgery-[address] [place], [place] [address] [place] [address] [place] [address] 01/31/2025 1:20 PM CDT Office Visit [facility] Family & Internal Medicine [facility] [address] [place] [address] [place] [address] [facility]. [address] [place] [address] Scheduled Procedures Name Priority Associated Diagnoses Date/Ti me BLOCK SACROILIAC JOINT SI joint arthritis 11/20/2024 8:40 AM CDT documented as of this encounter Visit Diagnoses Not on filedocumented in this encounter Additional Health Concerns Assessment Noted Time PHQ-9 Depression Total Score: 3 09/09/19 22 9:29 AM DOOR PANELER documented as of this encounter Care Teams Woods Warden Relationship Specialty Start Date End Date Vanessa Ogden MD PCP - General INTERNAL MEDICINE 08/14/18 08/10/22 [place] [address] [facility]. [address] [place] [address] PCP - General FAMILY PRACTICE 08/11/22 Jordan Castro MD 6812 [facility] [address] [facility] [address] [place] [address] Surgeon ORTHOPAEDIC SURGERY 01/13/20 documented as of this encounter
--- OUTSIDE RECORDS SUMMARY | 2024-11-08 12:10 | XMS_ITS | Encounter Summary ---
Author Organization [facility] Address [address] [place] [address] Care Team Providers Care Qualified Craft Worker Electrician Name Role Phone Vanessa Ogden MD Primary Care Provider [phone] Jordan Castro MD Unavailable [phone] Soila Neumann MD Primary Care Provider [phone] Encounter Details Date Type Department Care Team (Late st Contact Info) Description 04/18/2019 [employer] Message Enc [facility] Family & Internal Medicine [facility] [address] [place] [address] [place] [address] [place] [address] RE: Referral Request Social History Tobacco Use Types Packs/Day Years Used Date Smoking Tobacco: Never Smokeless Tobacco: Never Alcohol Use Standard Drinks/Week Comments Yes 0 (1 standard drink = 0.6 oz pur e alcohol) Rare use PHQ-2 Answer Date Recorded PHQ-2 Score 0 09/28/2018 Comments No Sex and Gender Information Value Date Recorded Sex Assigned at Female 06/28/2021 1:39 PM CORPORATE AFFAIRS MANAGER Legal Sex Female 3:51 PM CORPORATE AFFAIRS MANAGER Gender Identity Female 06/28/2021 1:39 PM CORPORATE AFFAIRS MANAGER Sexual Orientation Straight 06/28/2021 1: 39 PM CORPORATE AFFAIRS MANAGER documented as of this encounter Plan of Treatment Upcoming Encounters Date Type Department Care Team (Latest Contact Info) Description 11/13/2024 3:00 PM CDT Appointment [facility] [address] [place] [address] [place] [address] [facility]. [address] [place] [address] 11/20/2024 8:40 AM CDT Hospital Encounter [facility] Interventional [place] [address] [id number] Carolyn Fernando MD Three [facility] [address] [place] [address] 11/20/2024 8:40 AM CDT - 11/20/2024 9:00 AM CDT Surgery [facility] Interventional Pain Management [place] [address] [id number] Carolyn Fernando MD Three [facility] [address] [place] [address] BLOCK SACROILIAC JOINT 12/05/2024 1:20 PM CDT Office Visit [facility] Orthopedic Surgery-[place] [address] [place] [address] [place] [address] [place] [address] 01/31/2025 1:20 PM CDT Office Visit [facility] Medical Group Family & Internal Medicine - [place] [address] [place] [address] [place] [address] [facility]. [address] [place] [address] Scheduled Procedures Name Priority Associated Diagnoses Date/Ti me BLOCK SACROILIAC JOINT SI joint arthritis 11/20/2024 8:40 AM CDT documented as of this encounter Visit Diagnoses Not on filedocumented in this encounter Additional Health Concerns Infection Onset Date Last Indicated Resolved Time COVID-19 Rule Out 09/08/2021 09/08/2021 09/08/2021 10:37 AM CORPORATE AFFAIRS MANAGER documented as of this encounter Care Teams Qualified Craft Worker Electrician Relationship Specialty Start Date End Date Vanessa Ogden MD PCP - General INTERNAL MEDICINE 08/14/18 08/10/22 [place] [address] [facility]. [address] [place] [address] PCP - General FAMILY PRACTICE 08/11/22 Jordan Castro MD 6812 [facility] [address] [facility] [address] [place] [address] Surgeon ORTHOPAEDIC SURGERY 01/13/20 documented as of this encounter
--- OUTSIDE RECORDS SUMMARY | 2024-11-08 12:10 | XMS_ITS | Encounter Summary ---
Author Organization [facility] Address [address] [place] [address] Care Team Providers Care Cisco Network Architect Name Role Phone Vanessa Ogden MD Primary Care Provider [phone] Jordan Castro MD Unavailable [phone] Soila Neumann MD Primary Care Provider [phone] Encounter Details Date Type Department Care Team (Late st Contact Info) Description 08/30/2021 Tempo AIt Message Enc [facility] Medical Group Family & Internal Medicine [facility] [address] [place] [address] [place] Ogden [place] [address] [place] [address] Refill request: Hydrocodone 7.5/325 Social History [...] Sex Assigned at Female 06/28/2021 1:39 PM MAKE READY MECHANIC Legal Sex Female 3:51 PM MAKE READY MECHANIC Gender Identity Female 06/28/2021 1:39 PM MAKE READY MECHANIC Sexual Orientation Straight 06/28/2021 1: 39 PM MAKE READY MECHANIC Occupation Industry Job Start Date Job End Date RETIRED Not on file Not on file Not on file COVID-19 Exposure Response Date Recorded In the last 10 days, have yo u been in contact with someone who was confirmed or suspected to have Coronavirus/COVID-19? No / Unsure 08/13/2021 11:10 AM MAKE READY MECHANIC documented as of this encounter Progress Notes * Gilma Barreto RN - 08/30/2021 2:46 PM CST Please advise READY MECHANIC documented in this encounter Plan of Treatment Upcoming Encounters Date Type Department Care Team (Latest Contact Info) Description 11/13/2024 3:00 PM CDT Appointment [facility] [address] [facility] [place] [address] [place] [address] [facility]. [address] [place] [address] 11/20/2024 8:40 AM CDT Hospital Encounter [facility] [place]ventional [place] [address] [id number] Carolyn Fernando MD Three [facility] [address] [place] [address] 11/20/2024 8:40 AM CDT - 11/20/2024 9:00 AM CDT Surgery [facility] [place]ventional [place] [address] [id number] Carolyn Fernando MD Three [facility] [address] [place] [address] BLOCK SACROILIAC JOINT 12/05/2024 1:20 PM CDT Office Visit [facility] Orthopedic Surgery-[place] [address] [place] [address] [place] [address] [place] [address] 01/31/2025 1:20 PM CDT Office Visit [facility] Family & Internal Medicine [facility] [address] [place] [address] [place] [address] [facility]. [address] [place] [phone] Scheduled Procedures Name Priority Associated Diagnoses Date/Ti me BLOCK SACROILIAC JOINT SI joint arthritis 11/20/2024 8:40 AM CDT documented as of this encounter Visit Diagnoses Not on filedocumented in this encounter Additional Health Concerns Infection Onset Date Last Indicated Resolved Time COVID-19 Rule Out 09/08/2021 09/08/2021 09/08/2021 10:37 AM MAKE READY MECHANIC documented as of this encounter Care Teams Cisco Network Architect Relationship Specialty Start Date End Date Vanessa Ogden MD PCP - General INTERNAL MEDICINE 08/14/18 08/10/22 [place] [address] [facility] [address] [place] [address] PCP - General FAMILY PRACTICE 08/11/22 Jordan Castro MD 6812 [facility] [address] [place] [address] [place] [address] Surgeon ORTHOPAEDIC SURGERY 01/13/20 documented as of this encounter
--- OUTSIDE RECORDS SUMMARY | 2024-11-08 12:10 | XMS_ITS | Encounter Summary ---
Author Organization [facility] Address [address] [place] [address] Care Team Providers Care Jewelry Bench Molder Name Role Phone Vanessa Ogden MD Primary Care Provider [phone] Jordan Castro MD Unavailable [phone] Soila Neumann MD Primary Care Provider [phone] Encounter Details Date Type Department Care Team (Late st Contact Info) Description 11/04/2021 Betaspringt Message Enc [facility] Medical Group Family & Internal Medicine [facility] [address] [place] [address] [place] Og[place] [id number] [place] [address] prior email to you Social History [...] Sex Assigned at Female 06/28/2021 1:39 PM URBAN SOCIOLOGIST Legal Sex Female 3:51 PM URBAN SOCIOLOGIST Gender Identity Female 06/28/2021 1:39 PM URBAN SOCIOLOGIST Sexual Orientation Straight 06/28/2021 1: 39 PM URBAN SOCIOLOGIST Occupation Industry Job Start Date Job End Date RETIRED Not on file Not on file Not on file documented as of this encounter Plan of Treatment Upcoming Encounters Date Type Department Care Team (Latest Contact Info) Description 11/13/2024 3:00 PM CDT Appointment [facility] [address] [place] [address] [place] [address] [facility]. [address] [place] [address] 11/20/2024 8:40 AM CDT Hospital Encounter [facility] [place] [place] [address] [id number] Carolyn Fernando MD Three [facility] [address] [place] [address] 11/20/2024 8:40 AM CDT - 11/20/2024 9:00 AM CDT Surgery [facility] [place] [place] [address] [id number] Carolyn Fernando MD Three [facility] [address] [place] [address] BLOCK SACROILIAC JOINT 12/05/2024 1:20 PM CDT Office Visit [facility] Medical [facility] [address] [place], [place] [address] [place] [address] [place] [address] 01/31/2025 1:20 PM CDT Office Visit [facility] Family [facility] Internal [facility] - [place] [address] [place] [address] [place] [address] [facility]. [address] [place] [address] Scheduled Procedures Name Priority Associated Diagnoses Date/Ti me BLOCK SACROILIAC JOINT SI joint arthritis 11/20/2024 8:40 AM CDT documented as of this encounter Visit Diagnoses Not on filedocumented in this encounter Additional Health Concerns Assessment Noted Time PHQ-9 Depression Total Score: 3 09/09/19 22 9:29 AM URBAN SOCIOLOGIST documented as of this encounter Care Teams Jewelry Bench Molder Relationship Specialty Start Date End Date Vanessa Ogden MD PCP - General INTERNAL MEDICINE 08/14/18 08/10/22 [place] [address] [address] [place] [address] PCP - General FAMILY PRACTICE 08/11/22 Jordan Castro MD 6812 [facility] [address] [facility] [address] [place] [address] Surgeon ORTHOPAEDIC SURGERY 01/13/20 documented as of this encounter
--- OUTSIDE RECORDS SUMMARY | 2024-11-08 12:10 | XMS_ITS | Encounter Summary ---
Author Organization [facility] Address [address] [place] [address] Care Team Providers Care Chip Bin Operator Name Role Phone Vanessa Ogden MD Primary Care Provider [phone] Jordan Castro MD Unavailable [phone] Soila Neumann MD Primary Care Provider Encounter Details Date Type Department Care Team (Late st Contact Info) Description 11/02/2021 MyCKeep Me Certifiedt Message Enc [facility] Medical Group Family & Internal Medicine [facility] [address] [place] [address] [place] Ogden [place] [id number] [place] [address] [facility] medical cannabis renewal has changed [...] Sex Assigned at Female 06/28/2021 1:39 PM BUFFING AND POLISHING WHEEL REPAIRER Legal Sex Female 3:51 PM BUFFING AND POLISHING WHEEL REPAIRER Gender Identity Female 06/28/2021 1:39 PM BUFFING AND POLISHING WHEEL REPAIRER Sexual Orientation Straight 06/28/2021 1: 39 PM BUFFING AND POLISHING WHEEL REPAIRER Occupation Industry Job Start Date Job End [...] Info) Description 11/13/2024 3:00 PM CDT Appointment [facility] [address] [place] [address] [place] [address] [facility]. [address] [place] [address] 11/20/2024 8:40 AM CDT Hospital Encounter [facility] Interventional [place] [address] [id number] Carolyn Fernando MD Three [facility] [address] [place] [address] 11/20/2024 8:40 AM CDT - 11/20/2024 9:00 AM CDT Surgery [facility] [place] [address] [id number] Carolyn Fernando MD Three [facility] [address] [place] [address] BLOCK SACROILIAC JOINT 12/05/2024 1:20 PM CDT Office Visit [facility] Medical Group [facility] [address] [place] [address] [place] [address] [place] [address] 01/31/2025 1:20 PM CDT Office Visit [facility] Medical Group Family & Internal Medicine [facility] [address] [place] [address] [place] [address] [facility] [address]. [address] [place] [address] Scheduled Procedures Name Priority Associated Diagnoses Date/Ti me BLOCK SACROILIAC JOINT SI joint arthritis 11/20/2024 8:40 AM CDT documented as of this encounter Visit Diagnoses Not on filedocumented in this encounter Additional Health Concerns Assessment Noted Time PHQ-9 Depression Total Score: 3 09/09/19 22 9:29 AM BUFFING AND POLISHING WHEEL REPAIRER documented as of this encounter Care Teams Chip Bin Operator Relationship Specialty Start Date End Date Vanessa Ogden MD PCP - General INTERNAL MEDICINE 08/14/18 08/10/22 [place] [address] [facility]. [address] [place] [address] PCP - General FAMILY PRACTICE 08/11/22 Jordan Castro MD 6812 [facility] [address] [address] Surgeon ORTHOPAEDIC SURGERY 01/13/20 documented as of this encounter
--- OUTSIDE RECORDS SUMMARY | 2024-11-08 12:10 | XMS_ITS | Encounter Summary ---
Author Organization [facility] Address [address] [place] [address] Care Team Providers Care Shoe Turner Name Role Phone Vanessa Ogden MD Primary Care Provider [phone] Jordan Castro MD Unavailable [phone] Soila Neumann MD Primary Care Provider [phone] Encounter Details Date Type Department Care Team (Latest Contact Info) Description 09/28/2021 SavySwapt Message Enc [facility] Medical Group [facility] [place] 1512 [place] [address] Ricky Ramsey, DPM [address]70 [place] [address] recently new orthotics Social History [...] Sex Assigned at Female 06/28/2021 1:39 PM MONEY ROOM SUPERVISOR Legal Sex Female 3:51 PM MONEY ROOM SUPERVISOR Gender Identity Female 06/28/2021 1:39 PM MONEY ROOM SUPERVISOR Sexual Orientation Straight 06/28/2021 1: 39 PM MONEY ROOM SUPERVISOR Occupation Industry Job Start Date Job End Date RETIRED Not on file Not on file Not on file COVID-19 Exposure Response Date Recorded In the last 10 days, have yo u been in contact with someone who was confirmed or suspected to have Coronavirus/COVID-19? No / Unsure 09/10/2021 1:28 PM MONEY ROOM SUPERVISOR documented as of this encounter Plan of Treatment Upcoming Encounters Date Type Department Care Team (Latest Contact Info) Description 11/13/2024 3:00 PM CDT Appointment [facility] [address] [place] [address] [place] [address] [facility]. [address] [place] [address] 11/20/2024 8:40 AM CDT Hospital Encounter [facility] Interventional [place] [address] [id number] Carolyn Fernando MD Three [facility] [address] [place] [address] 11/20/2024 8:40 AM CDT - 11/20/2024 9:00 AM CDT Surgery [facility] [place] [address] [id number] Carolyn Fernando MD Three [facility] [address] [place] [address] BLOCK SACROILIAC JOINT 12/05/2024 1:20 PM CDT Office Visit [facility] Medical Group Orth[facility] [address] [place] [address] [place] [address] [place] [address] 01/31/2025 1:20 PM CDT Office Visit [facility] Medical Group Family & Internal Medicine [facility] [address] [place] [address] [place] [address] [facility] [address]. [address] [place] [address] Scheduled Procedures Name Priority Associated Diagnoses Date/Ti me BLOCK SACROILIAC JOINT SI joint arthritis 11/20/2024 8:40 AM CDT documented as of this encounter Visit Diagnoses Not on filedocumented in this encounter Additional Health Concerns Assessment Noted Time PHQ-9 Depression Total Score: 3 09/09/19 22 9:29 AM MONEY ROOM SUPERVISOR documented as of this encounter Care Teams Shoe Turner Relationship Specialty Start Date End Date Vanessa Ogden MD PCP - General INTERNAL MEDICINE 08/14/18 08/10/22 [place] [address] [facility]. [address] [place] [address] PCP - General FAMILY PRACTICE 08/11/22 Jordan Castro MD 6812 [facility] [address] [address] Surgeon ORTHOPAEDIC SURGERY 01/13/20 documented as of this encounter
--- OUTSIDE RECORDS SUMMARY | 2024-11-08 12:10 | XMS_ITS | Encounter Summary ---
Author Organization [facility] Address [address] [place] [address] Care Team Providers Care Public Health Informatician Name Role Phone Vanessa Ogden MD Primary Care Provider [phone] Jordan Castro MD Unavailable [phone] Soila Neumann MD Primary Care Provider [phone] Encounter Details Date Type Department Care Team (Late st Contact Info) Description 05/02/2019 MyCGeckoGot Message Enc [facility] Medical Group Family & Internal Medicine [facility] [address] [place] [address] [place] [address] [place] [address] RE: Question Social History Tobacco Use Types Packs/Day Years Used Date Smoking Tobacco: Never Smokeless Tobacco: Never Alcohol Use Standard Drinks/Week Comments Yes 0 (1 standard drink = 0.6 oz pur e alcohol) Rare use PHQ-2 Answer Date Recorded PHQ-2 Score 0 09/28/2018 Comments No Sex and Gender Information Value Date Recorded Sex Assigned at Female 06/28/2021 1:39 PM NEURO INTENSIVIST PHYSICIAN Legal Sex Female 3:51 PM NEURO INTENSIVIST PHYSICIAN Gender Identity Female 06/28/2021 1:39 PM NEURO INTENSIVIST PHYSICIAN Sexual Orientation Straight 06/28/2021 1: 39 PM NEURO INTENSIVIST PHYSICIAN documented as of this encounter Plan of Treatment Upcoming Encounters Date Type Department Care Team (Latest Contact Info) Description 11/13/2024 3:00 PM CDT Appointment [facility] [address] [place] [address] [place] [address] [address] [place] [address] 11/20/2024 8:40 AM CDT Hospital Encounter [facility] Interventional [place] [address] [id number] Carolyn Fernando MD Three [facility] [address] [place] [address] 11/20/2024 8:40 AM CDT - 11/20/2024 9:[address] [facility] Interventional [place] [address] [id number] Carolyn Fernando MD Three [facility] [address] [place] [address] BLOCK SACROILIAC JOINT 12/05/2024 1:20 PM CDT Office Visit [facility] [address] [place] [address] [place] [address] [place] [address] 01/31/2025 1:20 PM CDT Office Visit [facility] Medical Group Family & Internal Medicine [facility] [address] [place] [address] [place] [address] [facility] [address] [place] [address] Scheduled Procedures Name Priority Associated Diagnoses Date/Ti me BLOCK SACROILIAC JOINT SI joint arthritis 11/20/2024 8:40 AM CDT documented as of this encounter Visit Diagnoses Not on filedocumented in this encounter Additional Health Concerns Infection Onset Date Last Indicated Resolved Time COVID-19 Rule Out 09/08/2021 09/08/2021 09/08/2021 10:37 AM NEURO INTENSIVIST PHYSICIAN documented as of this encounter Care Teams Public Health Informatician Relationship Specialty Start Date End Date Vanessa Ogden MD PCP - General INTERNAL MEDICINE 08/14/18 08/10/22 [place] [address] [facility]. [address] [place] [address] PCP - General FAMILY PRACTICE 08/11/22 Jordan Castro MD 6812 [facility] [address] [facility] [address] [place] [address] Surgeon ORTHOPAEDIC SURGERY 01/13/20 documented as of this encounter
--- OUTSIDE RECORDS SUMMARY | 2024-11-08 12:10 | XMS_ITS | Encounter Summary ---
Author Organization [facility] Address [address] [place] [address] Care Team Providers Care Automobile Body Worker Name Role Phone Vanessa Ogden MD Primary Care Provider [phone] Jordan Castro MD Unavailable [phone] Soila Neumann MD Primary Care Provider [phone] Encounter Details Date Type Department Care Team (Late st Contact Info) Description 10/30/2021 Xobnit Message Enc [facility] Medical Group Family & Internal Medicine [facility] [address] [place] [address] Vanessa Ogden MD [address] [place] [address] Medical Cannabis renewal- Social History Tobacco [...] Sex Assigned at Female 06/28/2021 1:39 PM AURICULAR ACUPUNCTURIST Legal Sex Female 3:51 PM AURICULAR ACUPUNCTURIST Gender Identity Female 06/28/2021 1:39 PM AURICULAR ACUPUNCTURIST Sexual Orientation Straight 06/28/2021 1: 39 PM AURICULAR ACUPUNCTURIST Occupation Industry Job Start Date Job End [...] Info) Description 11/13/2024 3:00 PM CDT Appointment [facility] [address] [place] [address] [place] [address] [facility] [place] [address] 11/20/2024 8:40 AM CDT Hospital Encounter [facility] Interventional Pain [place] [address] [id number] Carolyn Fernando MD Three [facility] [address] [place] [address] 11/20/2024 8:40 AM CDT - 11/20/2024 9:00 AM CDT Surgery [facility] Interventional [place] [address] [id number] Carolyn Fernando MD Three [facility] [address] [place] [address] BLOCK SACROILIAC JOINT 12/05/2024 1:20 PM CDT Office Visit [facility] Medical Group Orthopedic [facility] [address] [place] [address] [place] [address] [place] [address] 01/31/2025 1:20 PM CDT Office Visit [facility] Medical Group Family & Internal Medicine [facility] [address] [place] [address] [place] [address] [facility]. [address] [place] [address] Scheduled Procedures Name Priority Associated Diagnoses Date/Ti me BLOCK SACROILIAC JOINT SI joint arthritis 11/20/2024 8:40 AM CDT documented as of this encounter Visit Diagnoses Not on filedocumented in this encounter Additional Health Concerns Assessment Noted Time PHQ-9 Depression Total Score: 3 09/09/19 22 9:29 AM AURICULAR ACUPUNCTURIST documented as of this encounter Care Teams Automobile Body Worker Relationship Specialty Start Date End Date Vanessa Ogden MD PCP - General INTERNAL MEDICINE 08/14/18 08/10/22 [place] [address] [facility] [address]. [address] [place] [address] PCP - General FAMILY PRACTICE 08/11/22 Jordan Castro MD 6812 [facility] [address] [facility] [address] [place] [address] Surgeon ORTHOPAEDIC SURGERY 01/13/20 documented as of this encounter
--- OUTSIDE RECORDS SUMMARY | 2024-11-08 12:10 | XMS_ITS | Encounter Summary ---
Author Organization [facility] Address [address] [place] [address] Care Team Providers Care Loan And Credit Manager Name Role Phone Vanessa Ogden MD Primary Care Provider [phone] Jordan Castro MD Unavailable [phone] Soila Neumann MD Primary Care Provider [phone] Encounter Details Date Type Department Care Team (Late st Contact Info) Description 12/30/2021 Flyrt Message Enc [facility] Medical Group Family & Internal Medicine [facility] [address] [place] [address] [place] Ogden [place] [phone] [place] [address] prior ankle msg Social History Tobacco [...] Sex Assigned at Female 06/28/2021 1:39 PM COMMERCIAL RETOUCHER Legal Sex Female 3:51 PM COMMERCIAL RETOUCHER Gender Identity Female 06/28/2021 1:39 PM COMMERCIAL RETOUCHER Sexual Orientation Straight 06/28/2021 1: 39 PM COMMERCIAL RETOUCHER Occupation Industry Job Start Date Job End [...] Info) Description 11/13/2024 3:00 PM CDT Appointment [facility] [address] [place] [address] [place] [address] [facility]. [address] [place] [address] 11/20/2024 8:40 AM CDT Hospital Encounter [facility] Interventional [place] [address] [id number] Carolyn Fernando MD Three [facility] [address] [place] [address] 11/20/2024 8:40 AM CDT - 11/20/2024 9:00 AM CDT Surgery [facility] Interventional [place] [address] [id number] Carolyn Fernando MD Three [facility] [address] [place] [address] BLOCK SACROILIAC JOINT 12/05/2024 1:20 PM CDT Office Visit [facility] Medical Group Orthopedic [facility] [address] [place] [address] [place] [address] [place] [address] 01/31/2025 1:20 PM CDT Office Visit [facility] Medical Group Family & Internal Medicine [facility] [address] [place] [address] [place] [address] [facility] [address]ix. [address] [place] [address] Scheduled Procedures Name Priority Associated Diagnoses Date/Ti me BLOCK SACROILIAC JOINT SI joint arthritis 11/20/2024 8:40 AM CDT documented as of this encounter Visit Diagnoses Not on filedocumented in this encounter Additional Health Concerns Assessment Noted Time PHQ-9 Depression Total Score: 3 09/09/19 22 9:29 AM COMMERCIAL RETOUCHER documented as of this encounter Care Teams Loan And Credit Manager Relationship Specialty Start Date End Date Vanessa Ogden MD PCP - General INTERNAL MEDICINE 08/14/18 08/10/22 [place] [address] [facility] [address]. [address] [place] [address] PCP - General FAMILY PRACTICE 08/11/22 Jordan Castro MD [address]12 [facility] [address] [facility] [address] [place] [address] Surgeon ORTHOPAEDIC SURGERY 01/13/20 documented as of this encounter
--- OUTSIDE RECORDS SUMMARY | 2024-11-08 12:10 | XMS_ITS | Clinical Summary ---
Author Organization [facility] Address [address] [place] [address] Care Team Providers Care Finance Lead Name Role Phone Soila Neumann MD Primary Care Provider [phone] Source Comments [facility],non-owned Affiliates and Associated Physician Practices is amultiple site organization consisting of ambulatory clinics and hospital sitesin [place], [place], [place] and [place]. This disclosure is being madepursuant to the Care Everywhere program and may not contain all information available regarding this patient. Last updated 18.[facility] Allergies Active Allergy Reactions Criticality Noted Date [...] patient. azelastine (ASTELIN) 0.1 % nasal spray [place] 1 (one) spray into each nostril once [...] naloxone HCl (Narcan) 4 MG/0.1ML nasal spray [place] 1 (one) spray into the nose as [...] Type Department Care Team Description 11/02/2024 Refill [facility] - Rheumatology [address] [place] [address] Kami Llanos MD Refill Request 10/29/2024 Refill [facility] Rheumatology [address] [place] [address] Kami Llanos MD Refill Request 10/25/2024 12:41 PM CDT - 10/25/2024 11:59 PM CDT Hospital Encounter [facility] - Rheumatology [address] [place] [address] Kami Llanos MD Rheumatology Discharge Disposition: Home or Self Care 10/25/2024 Travel 09/27/2024 11:42 AM CDT - 09/27/2024 11:59 PM CDT Hospital Encounter [facility] - Rheumatology [address] [place] [address] Kami Llanos MD Rheumatology Discharge Disposition: Home or Self Care 09/27/2024 Travel 08/27/2024 9:51 AM REMEDY DEVELOPER - 08/27/2024 11:59 PM REMEDY DEVELOPER Hospital Encounter [facility] - Rheumatology [address] [place] [address] Kami Llanos MD Rheumatology Discharge Disposition: Home or Self Care 08/27/2024 Travel 08/23/2024 Travel 08/22/2024 Refill [facility] - Rheumatology [address] [place] [address] Kami Llanos MD Refill Request 08/22/2024 Telephone [facility] - Family Medicine [address] [place] [address] Kami Llanos MD Patient Requested Call from [...] Sex Assigned at Female 08/31/2020 11:23 AM REMEDY DEVELOPER Legal Sex Female 6:25 PM REMEDY DEVELOPER Gender Identity Female 08/31/2020 11:23 AM REMEDY DEVELOPER Sexual Orientation Straight 08/31/2020 11 :23 AM REMEDY DEVELOPER Last Filed Vital Signs Vital Sign Reading Time Taken Comments Blood Pressure 118/45 10/25/2024 2:53 PM CDT Pulse 73 10/25/2024 2:53 PM CDT Temperature 36.3 C (97.3 F) 10/25/2024 1:21 PM CDT Respiratory Rate 18 12/06/2022 2:21 PM CDT Oxygen Saturation 100% 06/14/2023 2:23 PM REMEDY DEVELOPER Inhaled Oxygen Concentration - - Weight 106 kg (233 lb 9.6 oz) 10/25/2024 1:21 PM CDT Height 165.1 cm (5' 5 ) 06/14/2024 11:51 AM REMEDY DEVELOPER Body Mass Index 38.87 06/14/2024 11:51 AM REMEDY DEVELOPER Plan of Treatment Upcoming Encounters Date Type Department Care Team (Late st Contact Info) Description 11/22/2024 12:00 PM CDT Appointment [facility] - Rheumatology [address] [place], [place] [address] [address] 11/29/2024 2:00 PM CDT Office Visit [facility] Rheumatology [address] [place] [address] Kami Llanos MD [address] [place] [phone] 12/20/2024 10:00 AM CDT Appointment [address] [address] 01/17/2025 1:00 PM CDT Appointment [address] [address] 02/14/2025 2:00 PM CDT Appointment [address] [address] 05/09/2025 1:00 PM REMEDY DEVELOPER Appointment [address] [address] 05/09/2025 1:20 PM REMEDY DEVELOPER Office Visit [facility] Rheumatology [address] [place] [address] Kami Llanos MD [address] [place] [phone] Health Maintenance Due Date Last Done Comments [...] SCREEN ACUTE ([facility]) Routine 06/14/2024 12:50 PM REMEDY DEVELOPER Seropositive rheumatoid arthritis Encounter for other specified special examinations COMPREHENSIVE METABOLIC PANEL Routine 06/14/2024 12:49 PM REMEDY DEVELOPER Seropositive rheumatoid arthritis from Last 3 Months or Most Recently Relevant to Health Maintenance Results * HEPATITIS SCREEN ACUTE ([facility]) (06/14/2024 12:50 PM REMEDY DEVELOPER) Pathologist [facility] Hepatitis A Virus Antibody IgM Negative Negative [facility] INSURANCE BILL Comment: A negative anti-HAV IgM result suggests no recent or current HAV infection. Hepatitis B Virus Surface Antigen Negative Negative [facility] INSURANCE BILL Hepatitis B Core Virus Antibody IgM Negative Negative [facility] INSURANCE BILL Hepatitis C Antibody Non Reactive Non Reactive [facility] INSURANCE BILL Comment: Performed at: - [address] [id number] Rehab Aide: John Caban PhD, Phone: [phone] Interpretation Comment [facility] INSURANCE BILL Comment: Not infected with HCV unless early or acute infection is suspected (which may be delayed in an immunocompromised individual), or other evidence exists to indicate HCV infection. Blood BLOOD SPECIMEN / Unknown 06/14/2024 12:50 PM REMEDY DEVELOPER 06/14/2024 Narrative [facility] INSURANCE BILL - 06/15/2024 7:08 AM REMEDY DEVELOPER Performed at: - [address] [id number] Rehab Aide: John Caban PhD, Phone: [phone] Kami Llanos MD LAB - CHEMISTRY ORDERABLES Final Result [facility] INSURANCE BILL [address] [place] [address] * (ABNORMAL) COMPREHENSIVE METABOLIC PANEL (06/14/2024 12:49 PM REMEDY DEVELOPER) [facility] Glucose 110(H) 70 - 99 mg/dL [...] BLOOD SPECIMEN / Unknown 06/14/2024 12:49 PM REMEDY DEVELOPER 06/14/2024 Narrative [facility] INSURANCE BILL - 06/15/2024 7:08 AM REMEDY DEVELOPER Performed at: 01 - [address] [id number] Rehab Aide: John Caban PhD, Phone: [phone] Kami Llanos MD LAB - CHEMISTRY ORDERABLES Final Result [facility] INSURANCE BILL [address] [place] [address] from Last 3 Months or Most Recently Relevant to Health Maintenance [place] [address] [facility] [place] [address] MEDICARE [facility] Care Teams Finance Lead Relationship Specialty [place] [address] [address] PCP - General Family Medicine 06/14/23
--- OUTSIDE RECORDS SUMMARY | 2024-11-08 12:10 | XMS_ITS | Encounter Summary ---
Author Organization [facility] Address [address] [place] [address] Care Team Providers Care Bender Hand Name Role Phone Vanessa Ogden MD Primary Care Provider [phone] Jordan Castro MD Unavailable [phone] Soila Neumann MD Primary Care Provider [phone] Encounter Details Date Type Department Care Team (Late st Contact Info) Description 03/25/2019 MyCAscenta Therapeuticst Message Enc [facility] Medical Group Family & Internal Medicine [facility] [phone] [place] [address] [place] [address] [place] [address] RE: Follow Up/Update Social History Tobacco Use Types Packs/Day Years Used Date Smoking Tobacco: Never Smokeless Tobacco: Never Alcohol Use Standard Drinks/Week Comments Yes 0 (1 standard drink = 0.6 oz pur e alcohol) Rare use PHQ-2 Answer Date Recorded PHQ-2 Score 0 09/28/2018 Comments No Sex and Gender Information Value Date Recorded Sex Assigned at Female 06/28/2021 1:39 PM CREDIT ADMINISTRATION MANAGER Legal Sex Female 3:51 PM CREDIT ADMINISTRATION MANAGER Gender Identity Female 06/28/2021 1:39 PM CREDIT ADMINISTRATION MANAGER Sexual Orientation Straight 06/28/2021 1: 39 PM CREDIT ADMINISTRATION MANAGER documented as of this encounter Plan of Treatment Upcoming Encounters Date Type Department Care Team (Latest Contact Info) Description 11/13/2024 3:00 PM CDT Appointment [facility] [address] [place] [address] [place] [address] [facility]. [address] [place] [address] 11/20/2024 8:40 AM CDT Hospital Encounter [facility] Interventional [place] [address] [id number] Carolyn Fernando MD Three [facility] [address] [place] [address] 11/20/2024 8:40 AM CDT - 11/20/2024 9:00 AM CDT Surgery [facility] Interventional Pain Management [place] [address] [id number] Carolyn Fernando MD Three [facility] [address] [place] [address] BLOCK SACROILIAC JOINT 12/05/2024 1:20 PM CDT Office Visit [facility] Orthopedic Surgery-[place] [address] [place] [address] [place] [address] [place] [address] 01/31/2025 1:20 PM CDT Office Visit [facility] Medical [facility] Family & Internal Medicine [facility] [address] [place] [phone] [place] [address] [facility] [address]. [address] [place] [address] Scheduled Procedures Name Priority Associated Diagnoses Date/Ti me BLOCK SACROILIAC JOINT SI joint arthritis 11/20/2024 8:40 AM CDT documented as of this encounter Visit Diagnoses Not on filedocumented in this encounter Additional Health Concerns Infection Onset Date Last Indicated Resolved Time COVID-19 Rule Out 09/08/2021 09/08/2021 09/08/2021 10:37 AM CREDIT ADMINISTRATION MANAGER documented as of this encounter Care Teams Bender Hand Relationship Specialty Start Date End Date Vanessa Ogden MD PCP - General INTERNAL MEDICINE 08/14/18 08/10/22 [place] [address] [facility]. [address] [place] [address] PCP - General FAMILY PRACTICE 08/11/22 [place] Castro MD [address] [facility] [address] [facility] [address] [place] [address] Surgeon ORTHOPAEDIC SURGERY 01/13/20 documented as of this encounter
--- OUTSIDE RECORDS SUMMARY | 2024-11-08 12:10 | XMS_ITS | Encounter Summary ---
Author Organization [facility] Address [address] [place] [address] Care Team Providers Care All Terrain Vehicle Racer Name Role Phone Vanessa Ogden MD Primary Care Provider [phone] Jordan Castro MD Unavailable Soila Neumann MD Primary Care Provider [phone] Encounter Details Date Type Department Care Team (Late st Contact Info) Description 08/02/2021 MyCGameologyt Message Enc [facility] Medical Group Family & Internal Medicine [facility] [address] [place] [address] [place] Ogden [place] [phone] [place] [address] Hydrocodone Refil Social History Tobacco Use [...] Sex Assigned at Female 06/28/2021 1:39 PM TESTER OPERATOR Legal Sex Female 3:51 PM TESTER OPERATOR Gender Identity Female 06/28/2021 1:39 PM TESTER OPERATOR Sexual Orientation Straight 06/28/2021 1: 39 PM TESTER OPERATOR Occupation Industry Job Start Date Job End Date RETIRED Not on file Not on file Not on file COVID-19 Exposure Response Date Recorded In the last month, have you been in contact with someone who was confirmed or suspected to have Coronavirus / COVID-19? No / Unsure 07/12/2021 9:49 AM TESTER OPERATOR documented as of this encounter Plan of Treatment Upcoming Encounters Date Type Department Care Team (Latest Contact Info) Description 11/13/2024 3:00 PM CDT Appointment [facility] [address] [place] [address] [place] [address] [facility]. [address] [place] [address] 11/20/2024 8:40 AM CDT Hospital Encounter [facility] Interventional [place] [address] [id number] Carolyn Fernando MD Three [facility] [address] [place] [address] 11/20/2024 8:40 AM CDT - 11/20/2024 9:00 AM CDT Surgery [facility] [place]ventional [place] [address] [id number] Carolyn Fernando MD Three [facility] [address] [place] [address] BLOCK SACROILIAC JOINT 12/05/2024 1:20 PM CDT Office Visit [facility] Medical Group Orthopedic Surgery-[place] [address] [place] [address] [place] [address] [place] [address] 01/31/2025 1:20 PM CDT Office Visit [facility] Medical Group Family & Internal Medicine [facility] [address] [place] [address] [place] [address] [facility] [place] [address] Scheduled Procedures Name Priority Associated Diagnoses Date/Ti me BLOCK SACROILIAC JOINT SI joint arthritis 11/20/2024 8:40 AM CDT documented as of this encounter Visit Diagnoses Not on filedocumented in this encounter Additional Health Concerns Infection Onset Date Last Indicated Resolved Time COVID-19 Rule Out 09/08/2021 09/08/2021 09/08/2021 10:37 AM TESTER OPERATOR documented as of this encounter Care Teams All Terrain Vehicle Racer Relationship Specialty Start Date End Date Vanessa Ogden MD PCP - General INTERNAL MEDICINE 08/14/18 08/10/22 [place] [address] [facility] [address]. [address] [place] [address] PCP - General FAMILY PRACTICE 08/11/22 Jordan Castro MD [address] [facility] [address] [address] Surgeon ORTHOPAEDIC SURGERY 01/13/20 documented as of this encounter
--- OUTSIDE RECORDS SUMMARY | 2024-11-08 12:11 | XMS_ITS | Encounter Summary ---
Author Organization [facility] Address [address] [place] [address] Care Team Providers Care Rail Transit Operator Name Role Phone Vanessa Ogden MD Primary Care Provider [phone] Jordan Castro MD Unavailable [phone] Soila Neumann MD Primary Care Provider [phone] Encounter Details Date Type Department Care Team (Late st Contact Info) Description 06/02/2020 LiveBidt Message Enc [facility] Medical Group Family & Internal Medicine [facility] [address] [place] [address] [place] Ogden [place] [address] [place] [address] RE: Question Social History Tobacco Use Types Packs/Day Years Used Date Smoking Tobacco: Never Smokeless Tobacco: Never Alcohol Use Standard Drinks/Week Comments Yes 0 (1 standard drink = 0.6 oz pur e alcohol) Rare use PHQ-2 Answer Date Recorded PHQ-2 Score 0 09/28/2018 Comments No Sex and Gender Information Value Date Recorded Sex Assigned at Female 06/28/2021 1:39 PM MANAGER ADMINISTRATIVE SERVICES Legal Sex Female 3:51 PM MANAGER ADMINISTRATIVE SERVICES Gender Identity Female 06/28/2021 1:39 PM MANAGER ADMINISTRATIVE SERVICES Sexual Orientation Straight 06/28/2021 1: 39 PM MANAGER ADMINISTRATIVE SERVICES COVID-19 Exposure Response Date Recorded In the last month, have you been in contact with someone who was confirmed or suspected to have Coronavirus / COVID-19? No / Unsure 05/25/2020 3:08 PM MANAGER ADMINISTRATIVE SERVICES documented as of this encounter Plan of Treatment Upcoming Encounters Date Type Department Care Team (Latest Contact Info) Description 11/13/2024 3:[address] [facility] [address] [place], [place] [phone] [place] [address] [facility]. [address] [place] [address] 11/20/2024 8:40 AM CDT Hospital Encounter [facility] Interventional [place] [address] [id number] Carolyn Fernando MD Three [facility] [address] [place] [address] 11/20/2024 8:40 AM CDT - 11/20/2024 9:[address] AM [address] [facility] Interventional [place] [address] [id number] Carolyn Fernando MD Three [facility] [address] [place] [address] BLOCK SACROILIAC JOINT 12/05/2024 1:20 PM CDT Office [facility] [address] [place] [address] [place] [address] [place] [address] 01/31/2025 1:20 PM CDT Office Visit [facility] Family & Internal Medicine [facility] [address] [place] [address] [place] [address] [facility]. [address] [place] [id number] Scheduled Procedures Name Priority Associated Diagnoses Date/Ti me BLOCK SACROILIAC JOINT SI joint arthritis 11/20/2024 8:40 AM CDT documented as of this encounter Visit Diagnoses Not on filedocumented in this encounter Additional Health Concerns Infection Onset Date Last Indicated Resolved Time COVID-19 Rule Out 09/08/2021 09/08/2021 09/08/2021 10:37 AM MANAGER ADMINISTRATIVE SERVICES documented as of this encounter Care Teams Rail Transit Operator Relationship Specialty Start Date End Date Vanessa Ogden MD PCP - General INTERNAL MEDICINE 08/14/18 08/10/22 [place] [address] [facility] [address] [place] [address] PCP - General FAMILY PRACTICE 08/11/22 Jordan Castro MD [address] [facility] [address] [facility] [address] [place] [address] Surgeon ORTHOPAEDIC SURGERY 01/13/20 documented as of this encounter
--- OUTSIDE RECORDS SUMMARY | 2024-11-08 12:11 | XMS_ITS | Encounter Summary ---
Author Organization [facility] Address [address] [place] [address] Care Team Providers Care Assistant Corporate Controller Name Role Phone [place] Castro MD Unavailable [phone] Soila Neumann MD Primary Care Provider [phone] Encounter Details Date Type Department Care Team (Late st Contact Info) Description 06/15/2023 [employer] Message Enc [facility] Medical Group Family & Internal Medicine [address] [phone] [place] Neumann [place] [phone] [place] [address]. [address] [place] [address] update of health: Covid positive [...] Sex Assigned at Female 06/28/2021 1:39 PM BOILERMAKER LOFTSMAN Legal Sex Female 3:51 PM BOILERMAKER LOFTSMAN Gender Identity Female 06/28/2021 1:39 PM BOILERMAKER LOFTSMAN Sexual Orientation Straight 06/28/2021 1: 39 PM BOILERMAKER LOFTSMAN Occupation Industry Job Start Date Job End Date RETIRED Not on file Not on file Not on file documented as of this encounter Plan of Treatment Upcoming Encounters Date Type Department Care Team (Latest Contact Info) Description 11/13/2024 3:[address] [facility] [address] [place], [place] [phone] [place] [address] [facility]. [address] [place] [phone] 11/20/2024 8:40 AM CDT Hospital Encounter [facility] Interventional [place] [address] [id number] Carolyn Fernando MD Three [facility] [address] [place] [address] 11/20/2024 8:40 AM CDT - 11/20/2024 9:00 AM CDT Surgery [facility] Interventional [place] [address] [id number] Carolyn Fernando MD Three [facility] [address] [place] [address] BLOCK SACROILIAC JOINT 12/05/2024 1:20 PM CDT Office Visit [facility] Orthopedic Surgery-[place] [address] [place] [address] [place] [address] [place], [place] [address] 01/31/2025 1:20 PM CDT Office Visit [facility] Family & Internal Medicine [facility] [address] [place] [address] [place] [address] [address] [place] [address] Scheduled Procedures Name Priority Associated Diagnoses Date/Ti me BLOCK SACROILIAC JOINT SI joint arthritis 11/20/2024 8:40 AM CDT documented as of this encounter Visit Diagnoses Not on filedocumented in this encounter Additional Health Concerns Assessment Noted Time PHQ-9 Depression Total Score: 2 08/03/19 23 2:16 PM BOILERMAKER LOFTSMAN documented as of this encounter Care Teams Assistant Corporate Controller Relationship Specialty [place] [address] [address] [place] [address] PCP - General FAMILY PRACTICE 08/11/22 [place] Castro MD [address] [facility] [address] [place] [address] [place] [address] Surgeon ORTHOPAEDIC SURGERY 01/13/20 documented as of this encounter
--- OUTSIDE RECORDS SUMMARY | 2024-11-08 12:11 | XMS_ITS | Encounter Summary ---
Author Organization [facility] Address [address] [place] [address] Care Team Providers Care Transformation Analyst Name Role Phone Vanessa Ogden MD Primary Care Provider [phone] Jordan Castro MD Unavailable [phone] Soila Neumann MD Primary Care Provider [phone] Encounter Details Date Type Department Care Team (Late st Contact Info) Description 06/21/2021 Outsparkt Message Enc [facility] Medical Group Family & Internal Medicine [facility] [address] [place] [phone] [place] [address] [place] [address] Question Social History Tobacco Use Types [...] Sex Assigned at Female 06/28/2021 1:39 PM FURNACE HELPER Legal Sex Female 3:51 PM FURNACE HELPER Gender Identity Female 06/28/2021 1:39 PM FURNACE HELPER Sexual Orientation Straight 06/28/2021 1: 39 PM FURNACE HELPER Occupation Industry Job Start Date Job End Date RETIRED Not on file Not on file Not on file documented as of this encounter Plan of Treatment Upcoming Encounters Date Type Department Care Team (Latest Contact Info) Description 11/13/2024 3:00 PM CDT Appointment [facility] [address] [place] [address] [place] [address] [facility]. [address] [place] [address] 11/20/2024 8:40 AM CDT Hospital Encounter [facility] Interventional [place] [address] [id number] Carolyn Fernando MD Three [facility] [address] [place] [address] 11/20/2024 8:40 AM CDT - 11/20/2024 9:00 AM CDT Surgery [facility] Interventional [place] [address] [id number] Carolyn Fernando MD Three [facility] [address] [place] [address] BLOCK SACROILIAC JOINT 12/05/2024 1:20 PM CDT [facility] [address] [place], [place] [phone] [place] [address] [place] [address] 01/31/2025 1:20 PM CDT Office Visit [facility] Medical Group Family & Internal Medicine [facility] [address] [place] [address] [place] [address] [facility] [address]. [address] [place] [address] Scheduled Procedures Name Priority Associated Diagnoses Date/Ti me BLOCK SACROILIAC JOINT SI joint arthritis 11/20/2024 8:40 AM CDT documented as of this encounter Visit Diagnoses Not on filedocumented in this encounter Additional Health Concerns Infection Onset Date Last Indicated Resolved Time COVID-19 Rule Out 09/08/2021 09/08/2021 09/08/2021 10:37 AM FURNACE HELPER documented as of this encounter Care Teams Transformation Analyst Relationship Specialty Start Date End Date Vanessa Ogden MD PCP - General INTERNAL MEDICINE 08/14/18 08/10/22 [place] [address] [facility] [address]. [address] [place] [address] PCP - General FAMILY PRACTICE 08/11/22 [place] Castro MD [address] [facility] [address] [place] [place] [address] Surgeon ORTHOPAEDIC SURGERY 01/13/20 documented as of this encounter
--- OUTSIDE RECORDS SUMMARY | 2024-11-08 12:11 | XMS_ITS | Encounter Summary ---
Author Organization [facility] Address [address] [place] [address] Care Team Providers Care Gang Tailer Name Role Phone Vanessa Ogden MD Primary Care Provider + [phone] Soila Neumann MD Primary Care Provider [phone] Reason for Visit * Reason Onset Date Comments Scheduling 09/05/2022 Left VM for resc heduling due to infusion center closing early 09/09/22 Encounter Details Date Type Department Care Team (Late st Contact Info) Description 09/05/2022 Telephone [facility] [address] [place] [address] Lisa Mayo, RN Scheduling (Left VM for [...] Sex Assigned at Female 08/31/2020 11:23 AM BUS ANALYST Legal Sex Female 6:25 PM BUS ANALYST Gender Identity Female 08/31/2020 11:23 AM BUS ANALYST Sexual Orientation Straight 08/31/2020 11 :23 AM BUS ANALYST documented as of this encounter Plan of Treatment Upcoming Encounters Date Type Department Care Team (Late st Contact Info) Description 11/22/2024 12:00 PM CDT Appointment [facility] - Rheumatology [address] [place], [place] [address] [address] 11/29/2024 2:00 PM CDT Office Visit [facility] [place], [place] [phone] Kami Llanos MD [facility] [place] [phone] 12/20/2024 10:00 AM CDT Appointment [facility] - Rheumatology [facility] [place], [place] [phone] 01/17/2025 1:00 PM CDT Appointment [facility] - Rheumatology [address] [place], [place] [address], [place] [phone] 02/14/2025 2:00 PM CDT Appointment [facility] - Rheumatology [address] [place], [place] [address] [address] 05/09/2025 1:00 PM BUS ANALYST Appointment [facility] - Rheumatology [facility] [place], [place] [phone] 05/09/2025 1:20 PM BUS ANALYST Office Visit [facility] - [facility]ology [facility] [place], [place] [phone] Kami Llanos MD [facility] [place] [phone] documented as of this encounter Visit Diagnoses Not on filedocumented in this encounter Care Teams Gang Tailer Relationship Specialty Start Date End Date Vanessa Ogden MD PCP - General Internal Medicine 05/19/21 06/13/23 [place] [address] [address] [address] PCP - General Family Medicine 06/14/23 documented as of this encounter
--- OUTSIDE RECORDS SUMMARY | 2024-11-08 12:11 | XMS_ITS | Encounter Summary ---
Author Organization [facility] Address [address] [place] [address] Care Team Providers Care Electric Meter Installer Helper Name Role Phone Jordan Castro MD Unavailable [phone] Soila Neumann MD Primary Care Provider [phone] Encounter Details Date Type Department Care Team (Latest Contact Info) Description 02/13/2024 PT PAL Message Enc [facility] Medical Group Multispecialty Care - [address], [address] [place] [address] [employer], [facility] Provider Recap on Phonecall Social History Tobacco [...] Sex Assigned at Female 06/28/2021 1:39 PM EVENING ANCHOR Legal Sex Female 3:51 PM EVENING ANCHOR Gender Identity Female 06/28/2021 1:39 PM EVENING ANCHOR Sexual Orientation Straight 06/28/2021 1: 39 PM EVENING ANCHOR Occupation Industry Job Start Date Job End Date RETIRED Not on file Not on file Not on file documented as of this encounter Plan of Treatment Upcoming Encounters Date Type Department Care Team (Latest Contact Info) Description 11/13/2024 3:[address] [facility] [address] [place] [address] [place] [address] [facility]. [address] [place] [address] [phone] 11/20/2024 8:40 AM CDT Hospital Encounter [facility] Interventional [place] [address] [phone] Carolyn Fernando MD Three [facility] [address] [place] [address] 11/20/2024 8:40 AM CDT - 11/20/2024 9:00 AM CDT Surgery [facility] Interventional [place] [address] [phone] Carolyn Fernando MD Three [facility] [address] [place] [address] BLOCK SACROILIAC JOINT 12/05/2024 1:20 PM CDT Office Visit [facility] Orthopedic Surgery[place] [address] [place] [address] [place] [address] [place] [address] 01/31/2025 1:20 PM CDT Office Visit [facility] Family & Internal Medicine [facility] [address] [place] [address] [place] [address] [facility] [address] [place] [address] Scheduled Procedures Name Priority Associated Diagnoses Date/Ti me BLOCK SACROILIAC JOINT SI joint arthritis 11/20/2024 8:40 AM CDT documented as of this encounter Visit Diagnoses Not on filedocumented in this encounter Additional Health Concerns Assessment Noted Time PHQ-9 Depression Total Score: 2 08/03/19 23 2:16 PM EVENING ANCHOR documented as of this encounter Care Teams Electric Meter Installer Helper Relationship Specialty [place] [address] [address] [place] [address] PCP - General FAMILY PRACTICE 08/11/22 Jordan Castro MD [address] [facility] [address] [place] [address] Surgeon ORTHOPAEDIC SURGERY 01/13/20 documented as of this encounter
--- OUTSIDE RECORDS SUMMARY | 2024-11-08 12:11 | XMS_ITS | Encounter Summary ---
Author Organization [facility] Address [address] [place] [address] Care Team Providers Care Bindery Leadperson Name Role Phone Jordan Castro MD Unavailable [phone] Soila Neumann MD Primary Care Provider [phone] Encounter Details Date Type Department Care Team (Late st Contact Info) Description 2024 [employer] Message Enc [facility] Medical Group Family & Internal Medicine [address] [address] [place] [phone] [place] [address]. [address] [place] [address] chest/lung illness Social History Tobacco [...] Sex Assigned at Female 06/28/2021 1:39 PM DISTRICT SALES REPRESENTATIVE Legal Sex Female 3:51 PM DISTRICT SALES REPRESENTATIVE Gender Identity Female 06/28/2021 1:39 PM DISTRICT SALES REPRESENTATIVE Sexual Orientation Straight 06/28/2021 1: 39 PM DISTRICT SALES REPRESENTATIVE Occupation Industry Job Start Date Job End Date RETIRED Not on file Not on file Not on file documented as of this encounter Functional Status * Over the past 2 weeks, how often have you been bothered by any of the following problems? Question Answer Date of Assessment Author Status Little interest or pleasure in doing things Not at all 07/11/2024 2:36 PM DISTRICT SALES REPRESENTATIVE Alana Azar MA Act norah Feeling down, depressed, or hopeless Not at all 07/11/2024 2:36 PM DISTRICT SALES REPRESENTATIVE Alana Azar MA Active Patient Health Questionnaire-2 Score 0 07/11/2024 2:36 PM DISTRICT SALES REPRESENTATIVE Alana Azar MA Active documented as of this encounter Plan of Treatment Upcoming Encounters Date Type Department Care Team (Latest Contact Info) Description 11/13/2024 3:00 PM CDT Appointment [facility] [address] [place] [address] [place] [address] [facility]. [address] [place] [address] 11/20/2024 8:40 AM CDT Hospital Encounter [facility] Interventional [place] [address] [phone] Carolyn Fernando MD Three [address] [address] 11/20/2024 8:40 AM CDT - 11/20/2024 9:00 AM CDT Surgery [facility] Interventional [place] [address] [phone] Carolyn Fernando MD Three [facility] [address] [place] [address] BLOCK SACROILIAC JOINT 12/05/2024 1:20 PM CDT Office Visit [facility] Orthopedic Surgery-[place] [address] [place] [address] [place] [address] [place] [address] 01/31/2025 1:20 PM CDT Office Visit [facility] Family & Internal Medicine [facility] [address] [place] [address] [place] [address] [facility]. [address] [place] [address] Scheduled Procedures Name Priority Associated Diagnoses Date/Ti me BLOCK SACROILIAC JOINT SI joint arthritis 11/20/2024 8:40 AM CDT documented as of this encounter Visit Diagnoses Not on filedocumented in this encounter Additional Health Concerns Assessment Noted Time PHQ-9 Depression Total Score: 2 08/03/19 23 2:16 PM DISTRICT SALES REPRESENTATIVE documented as of this encounter Care Teams Bindery Leadperson Relationship Specialty [place] [address] [facility]. [address] [place], [place] [phone] PCP - General FAMILY PRACTICE 08/11/22 Jordan Castro MD [address] [facility] [address] [facility] [address] [place] [address] Surgeon ORTHOPAEDIC SURGERY 01/13/20 documented as of this encounter
--- OUTSIDE RECORDS SUMMARY | 2024-11-08 12:11 | XMS_ITS | Encounter Summary ---
Author Organization [facility] Address [address] [facility] [place] [address] Care Team Providers Care Powder Worker Tnt Name Role Phone Sofi Davis MD Primary Care Provider + Vanessa Ogden MD Primary Care Provider [phone] Soila Neumann MD Primary Care Provider [phone] Encounter Details Date Type Department Care Team (Late st Contact Info) Description 05/18/2021 Lab Requisition [facility] Care DermPath Lab [address] [facility] [place] [phone] Francisco Sims MD [address] [facility] [place] [address] Social History Tobacco Use Types Packs/Day Years Used Date Smoking Tobacco: Former Cigarettes Smokeless Tobacco: Never Comments:quit 1977 Alcohol Use Standard Drinks/Week Comments Yes 0 (1 standard drink = 0.6 oz pur e alcohol) OCC Comments No Sex and Gender Information Value Date Recorded Sex Assigned at Female 08/31/2020 11:23 AM ACOUSTICAL ENGINEER Legal Sex Female 6:25 PM ACOUSTICAL ENGINEER Gender Identity Female 08/31/2020 11:23 AM ACOUSTICAL ENGINEER Sexual Orientation Straight 08/31/2020 11 :23 AM ACOUSTICAL ENGINEER documented as of this encounter Plan of Treatment Upcoming Encounters Date Type Department Care Team (Late st Contact Info) Description 11/22/2024 12:00 PM CDT Appointment [facility] Medical Group - Rheumatology [address] [place] [address] 11/29/2024 2:00 PM CDT Office Visit [facility] - Rheumatology [address] [place] [address] [phone] Kami Llanos MD [facility] [place] [phone] 12/20/2024 10:00 AM CDT Appointment [facility] - Rheumatology [address] [place] [address] [phone] 01/17/2025 1:00 PM CDT Appointment [facility] - Rheumatology [address] [place] [address] [phone] 02/14/2025 2:00 PM CDT Appointment [facility] - Rheumatology [address] [place] [address] [phone] 05/09/2025 1:00 PM ACOUSTICAL ENGINEER Appointment [facility] - Rheumatology [address] [place] [address] [phone] 05/09/2025 1:20 PM ACOUSTICAL ENGINEER Office Visit [facility] - Rheumatology [address] [place] [address] [phone] Kami Llanos MD [address] [place] [phone] documented as of this encounter Procedures Procedure Name Priority Date/Time Associated Diagnosis Comments DERMATOPATHOLOGY Routine 05/14/2021 12:0 0 AM ACOUSTICAL ENGINEER documented in this encounter Results * DERMATOPATHOLOGY (05/14/2021 12:00 AM ACOUSTICAL ENGINEER) Case Report Dermatopathology Report Case: [id number] Authorizing Provider: Francisco Sims MD Collected: 05/14/2021 12:00 AM Ordering Location: [facility] DermPath Lab Received: 05/18/2021 06:20 AM Pathologist: Edith Powell MD Specimens: A) - Skin, left shoulder B) - Skin, center back 4:44 PM [facility] DERMATOPATHOLOGY LABORATORY Final Diagnosis Specimen A. SKIN, left shoulder: COMPOUND MELANOCYTIC NEVUS (D22.62) JUNCTIONAL MELANOCYTIC NEVUS (D22.62) SOLAR LENTIGO (L81.4) (see microscopic description and comment) Specimen B. SKIN, center back: INTRADERMAL MELANOCYTIC NEVUS WITH CONGENITAL FEATURES (D22.9) 4:44 PM [facility] DERMATOPATHOLOGY LABORATORY Clinical History A: SK vs nevus vs MM. Path# [id number] B: SK vs nevus vs MM. Path# [id number] 4:44 PM [facility] DERMATOPATHOLOGY LABORATORY Gross Description Specimen A: Received is one formalin filled container labeled with the patient's name and designated left shoulder. The specimen consists of a shave biopsy measuring [id number]. Jar 0. Specimen B: Received is one formalin filled container labeled with the patient's name and designated center back. The specimen consists of a shave biopsy measuring [id number]. Jar 0. 4:44 PM [facility] DERMATOPATHOLOGY LABORATORY Microscopic Description Specimen A. SKIN, [...] blood vessels and adnexal structures. 4:44 PM [facility] DERMATOPATHOLOGY LABORATORY Disclaimer An external and internal positive and negative controls are appropriate for the histochemical, immunohistochemical and immunofluorescence stain(s) in this case (if any), except where stated explicitly. The performance characteristics of the stain(s) cited in this report were developed and its performance characteristic determined by the Dermatopathology Laboratory at [facility], directed by Dr. Jaret King. These tests need not be, and therefore are not, approved by the [place] Food and Drug Administration. The tests are used for clinical purposes. Billing Codes Specimen Charges Stain Charges 20061 61167 1 1 29733 1 1 4:44 PM ACOUSTICAL ENGINEER DERMATOPATHOLOGY LABORATORY Embedded Images 4:44 PM ACOUSTICAL ENGINEER DERMATOPATHOLOGY LABORATORY Pathology/Cytology TISSUE SPECIMEN FROM SKIN / Unknown 05/14/2021 05/18/2021 6:20 AM ACOUSTICAL ENGINEER Miscellaneous samples (specimen) TISSUE SPECIMEN FROM SKIN / Unknown 05/14/2021 05/18/2021 6:20 AM ACOUSTICAL ENGINEER Francisco Sims MD LAB - PATHOLOGY/CYTOLOGY ORDER UMAIR Final Result DERMATOPATHOLOGY LABORATORY [facility] - Department of Dermatology [facility] Medicine [address] [place] [address], [address] [phone] documented in this encounter Visit Diagnoses Not on filedocumented in this encounter Care Teams Powder Worker Tnt Relationship Specialty Start Date End Date Sofi Davis MD [address] [facility] [address] [place] [address] PCP - General 05/17/21 05/18/21 Vanessa Ogden MD [address] [place] [address] PCP - General Internal Medicine 05/19/21 06/13/23 [place] [address] [address] PCP - General Family Medicine 06/14/23 documented as of this encounter
--- OUTSIDE RECORDS SUMMARY | 2024-11-08 12:11 | XMS_ITS | Encounter Summary ---
Author Organization [facility] Address [address] [place] [address] Care Team Providers Care Administrator Social Welfare Name Role Phone Vanessa Ogden MD Primary Care Provider [phone] Jordan Castro MD Unavailable [phone] Soila Neumann MD Primary Care Provider [phone] Encounter Details Date Type Department Care Team (Late st Contact Info) Description 06/08/2020 [employer] Message Enc [facility] Medical Group Family & Internal Medicine [facility] [address] [place] [phone] [facility] Provider RE:Appointment Social History Tobacco Use Types Packs/Day Years Used Date Smoking Tobacco: Never Smokeless Tobacco: Never Alcohol Use Standard Drinks/Week Comments Yes 0 (1 standard drink = 0.6 oz pur e alcohol) Rare use PHQ-2 Answer Date Recorded PHQ-2 Score 0 09/28/2018 Comments No Sex and Gender Information Value Date Recorded Sex Assigned at Female 06/28/2021 1:39 PM HOGSHEAD HEAD MATCHER Legal Sex Female 3:51 PM HOGSHEAD HEAD MATCHER Gender Identity Female 06/28/2021 1:39 PM HOGSHEAD HEAD MATCHER Sexual Orientation Straight 06/28/2021 1: 39 PM HOGSHEAD HEAD MATCHER COVID-19 Exposure Response Date Recorded In the last month, have you been in contact with someone who was confirmed or suspected to have Coronavirus / COVID-19? No / Unsure 05/25/2020 3:08 PM HOGSHEAD HEAD MATCHER documented as of this encounter Plan of Treatment Upcoming Encounters Date Type Department Care Team (Latest Contact Info) Description 11/13/2024 3:00 PM CDT Appointment [facility] [address] [place] [address] [place] [address] [facility]. [address] [place] [address] 11/20/2024 8:40 AM CDT Hospital Encounter [facility] Interventional [place] [address] [phone] Carolyn Fernando MD Three [facility] [address] [place] [address] 11/20/2024 8:40 AM CDT - 11/20/2024 9:00 AM CDT Surgery [facility] Interventional [place] [address] [phone] Carolyn Fernando MD Three [facility] [address] [place] [address] BLOCK SACROILIAC JOINT 12/05/2024 1:20 PM CDT Office Visit [facility] Orthopedic Surgery[place] [address] [place] [address] [place] [address] [place] [address] 01/31/2025 1:20 PM CDT Office Visit [facility] Family & Internal Medicine [facility] [address] [place] [address] [place] [address] [facility]. [address] [place] [address] [phone] Scheduled Procedures Name Priority Associated Diagnoses Date/Ti me BLOCK SACROILIAC JOINT SI joint arthritis 11/20/2024 8:40 AM CDT documented as of this encounter Visit Diagnoses Not on filedocumented in this encounter Additional Health Concerns Infection Onset Date Last Indicated Resolved Time COVID-19 Rule Out 09/08/2021 09/08/2021 09/08/2021 10:37 AM HOGSHEAD HEAD MATCHER documented as of this encounter Care Teams Administrator Social Welfare Relationship Specialty Start Date End Date Vanessa Ogden MD PCP - General INTERNAL MEDICINE 08/14/18 08/10/22 [place] [address] [facility]. [address] [place] [address] PCP - General FAMILY PRACTICE 08/11/22 Jordan Castro MD [address] [facility] [address] [facility] [address] [place] [address] Surgeon ORTHOPAEDIC SURGERY 01/13/20 documented as of this encounter
--- OUTSIDE RECORDS SUMMARY | 2024-11-08 12:11 | XMS_ITS | Encounter Summary ---
Author Organization [facility] Address [address] [place] [address] Care Team Providers Care Java Sql Developer Name Role Phone Jordan Castro MD Unavailable [phone] Soila Neumann MD Primary Care Provider [phone] Encounter Details Date Type Department Care Team (Latest Contact Info) Description 02/12/2024 [employer] Message Enc [facility] Medical Group Multispecialty Care - [address], [address] [place] [phone] Dinesh Cruz, DO medication NYSTOP Social History [...] Sex Assigned at Female 06/28/2021 1:39 PM SAFETY INVESTIGATOR/CAUSE ANALYST Legal Sex Female 3:51 PM SAFETY INVESTIGATOR/CAUSE ANALYST Gender Identity Female 06/28/2021 1:39 PM SAFETY INVESTIGATOR/CAUSE ANALYST Sexual Orientation Straight 06/28/2021 1: 39 PM SAFETY INVESTIGATOR/CAUSE ANALYST Occupation Industry Job Start Date Job End Date RETIRED Not on file Not on file Not on file documented as of this encounter Plan of Treatment Upcoming Encounters Date Type Department Care Team (Latest Contact Info) Description 11/13/2024 3:[address] [facility] [address] [place] [address] [place] [address] [facility]. [address] [place] [address] [phone] 11/20/2024 8:40 AM CDT Hospital Encounter [facility] Interventional [place] [address] [phone] Carolyn Fernando MD Three [facility] [address] [place] [address] 11/20/2024 8:40 AM CDT - 11/20/2024 9:00 AM CDT Surgery [facility] Interventional [place] [address] [phone] Carolyn Fernando MD Three [facility] [address] [place] [address] BLOCK SACROILIAC JOINT 12/05/2024 1:20 PM CDT Office Visit [facility] Orthopedic Surgery-[place] [address] [place] [address] [place] [address] [place] [address] 01/31/2025 1:20 PM CDT Office Visit [facility] Family & Internal Medicine [facility] [address] [place] [address] [place] [address] [facility]. [address] [place] [address] Scheduled Procedures Name Priority Associated Diagnoses Date/Ti me BLOCK SACROILIAC JOINT SI joint arthritis 11/20/2024 8:40 AM CDT documented as of this encounter Visit Diagnoses Not on filedocumented in this encounter Additional Health Concerns Assessment Noted Time PHQ-9 Depression Total Score: 2 08/03/19 23 2:16 PM SAFETY INVESTIGATOR/CAUSE ANALYST documented as of this encounter Care Teams Java Sql Developer Relationship Specialty [place] [address] [address] [place] [address] PCP - General FAMILY PRACTICE 08/11/22 Jordan Castro MD [address] [facility] [address] [place] [address] Surgeon ORTHOPAEDIC SURGERY 01/13/20 documented as of this encounter
--- OUTSIDE RECORDS SUMMARY | 2024-11-08 12:11 | XMS_ITS | Encounter Summary ---
Author Organization [facility] Address [address] [place] [address] Care Team Providers Care Pet Care Technician Name Role Phone Vanessa Ogden MD Primary Care Provider [phone] Jordan Castro MD Unavailable [phone] Soila Neumann MD Primary Care Provider [phone] Encounter Details Date Type Department Care Team (Late st Contact Info) Description 02/21/2020 [email or web address] Message [employer] [facility] Family & Internal Medicine [facility] [address] [place] [address] [place] [id number] [place] [address] RE: Test Results Social History Tobacco Use Types Packs/Day Years Used Date Smoking Tobacco: Never Smokeless Tobacco: Never Alcohol Use Standard Drinks/Week Comments Yes 0 (1 standard drink = 0.6 oz pur e alcohol) Rare use PHQ-2 Answer Date Recorded PHQ-2 Score 0 09/28/2018 Comments No Sex and Gender Information Value Date Recorded Sex Assigned at Female 06/28/2021 1:39 PM BONE PLANT SUPERVISOR Legal Sex Female 3:51 PM BONE PLANT SUPERVISOR Gender Identity Female 06/28/2021 1:39 PM BONE PLANT SUPERVISOR Sexual Orientation Straight 06/28/2021 1: 39 PM BONE PLANT SUPERVISOR COVID-19 Exposure Response Date Recorded In the last month, have you been in contact with someone who was confirmed or suspected to have Coronavirus / COVID-19? No / Unsure 02/21/2020 3:15 PM CDT documented as of this encounter Plan of Treatment Upcoming Encounters Date Type Department Care Team (Latest Contact Info) Description 11/13/2024 3:[address] [facility] [address] [place], [place] [phone] [place] [address] [facility]. [address] [place] [address] [id number] 11/20/2024 8:40 AM CDT Hospital Encounter [facility] Interventional [place] [address] [id number] Carolyn Fernando MD Three [facility] [address] [place] [address] 11/20/2024 8:40 AM CDT - 11/20/2024 9:00 AM CDT Surgery [facility] [place] [address] [id number] Carolyn Fernando MD Three [facility] [address] [place] [address] BLOCK SACROILIAC JOINT 12/05/2024 1:20 PM CDT Office Visit [facility] [address] [place] [address] [place] [address] [place] [address] 01/31/2025 1:20 PM CDT Office Visit [facility] Family & Internal Medicine [facility] [address] [place] [phone] [place] [address] [facility]. [address] [place] [address] [id number] Scheduled Procedures Name Priority Associated Diagnoses Date/Ti me BLOCK SACROILIAC JOINT SI joint arthritis 11/20/2024 8:40 AM CDT documented as of this encounter Visit Diagnoses Not on filedocumented in this encounter Additional Health Concerns Infection Onset Date Last Indicated Resolved Time COVID-19 Rule Out 09/08/2021 09/08/2021 09/08/2021 10:37 AM BONE PLANT SUPERVISOR documented as of this encounter Care Teams Pet Care Technician Relationship Specialty Start Date End Date Vanessa Ogden MD PCP - General INTERNAL MEDICINE 08/14/18 08/10/22 [place] [address] [facility] [address] [place] [address] PCP - General FAMILY PRACTICE 08/11/22 Jordan Castro MD 6812 [facility] [address] [facility] [address] [place] [address] Surgeon ORTHOPAEDIC SURGERY 01/13/20 documented as of this encounter
--- OUTSIDE RECORDS SUMMARY | 2024-11-08 12:11 | XMS_ITS | Encounter Summary ---
Author Organization [facility] Address [address] [place] [address] Care Team Providers Care Pricing Actuary Name Role Phone Vanessa Ogden MD Primary Care Provider [phone] Jordan Castro MD Unavailable [phone] Soila Neumann MD Primary Care Provider [phone] Encounter Details Date Type Department Care Team (Late st Contact Info) Description 06/19/2020 T[employer] Message Enc [facility] Medical Group Family & Internal Medicine [facility] [address] [place] [address] Vanessa Ogden [place] [address] [place] [address] RE: Follow Up/Update Social History Tobacco Use Types Packs/Day Years Used Date Smoking Tobacco: Never Smokeless Tobacco: Never Alcohol Use Standard Drinks/Week Comments Yes 0 (1 standard drink = 0.6 oz pur e alcohol) Rare use PHQ-2 Answer Date Recorded PHQ-2 Score 0 09/28/2018 Comments No Sex and Gender Information Value Date Recorded Sex Assigned at Female 06/28/2021 1:39 PM BOILERMAKER Legal Sex Female 3:51 PM BOILERMAKER Gender Identity Female 06/28/2021 1:39 PM BOILERMAKER Sexual Orientation Straight 06/28/2021 1: 39 PM BOILERMAKER COVID-19 Exposure Response Date Recorded In the last month, have you been in contact with someone who was confirmed or suspected to have Coronavirus / COVID-19? No / Unsure 05/25/2020 3:08 PM BOILERMAKER documented as of this encounter Plan of Treatment Upcoming Encounters Date Type Department Care Team (Latest Contact Info) Description 11/13/2024 3:[address] [facility] [address] [place], [place] [phone] [place] [address] [facility]. [address] [place] [address] [id number] 11/20/2024 8:40 AM CDT Hospital Encounter [facility] Interventional [place] [address] [id number] Carolyn Fernando MD Three [facility] [address] [place] [address] 11/20/2024 8:40 AM CDT - 11/20/2024 9:00 AM CDT Surgery [facility] Interventional [place] [address] [id number] Carolyn Fernando MD Three [facility] [address] [place] [address] BLOCK SACROILIAC JOINT 12/05/2024 1:20 PM CDT Office Visit [facility] [address] [place] [address] [place] [address] [place] [address] 01/31/2025 1:20 PM CDT Office Visit [facility] Family & Internal Medicine [facility] [address] [place] [address] [place] [address] [facility]. [address] [place] [address] [phone] Scheduled Procedures Name Priority Associated Diagnoses Date/Ti me BLOCK SACROILIAC JOINT SI joint arthritis 11/20/2024 8:40 AM CDT documented as of this encounter Visit Diagnoses Not on filedocumented in this encounter Additional Health Concerns Infection Onset Date Last Indicated Resolved Time COVID-19 Rule Out 09/08/2021 09/08/2021 09/08/2021 10:37 AM BOILERMAKER documented as of this encounter Care Teams Pricing Actuary Relationship Specialty Start Date End Date Vanessa Ogden MD PCP - General INTERNAL MEDICINE 08/14/18 08/10/22 [place] [address] [facility]. [address] [place] [address] PCP - General FAMILY PRACTICE 08/11/22 Jordan Castro MD 6812 [facility] [address] [facility] [address] [place] [address] Surgeon ORTHOPAEDIC SURGERY 01/13/20 documented as of this encounter
--- OUTSIDE RECORDS SUMMARY | 2024-11-08 12:11 | XMS_ITS | Encounter Summary ---
Author Organization [facility] Address [address] [place] [address] Care Team Providers Care Awning Spreader Name Role Phone Jordan Castro MD Unavailable [phone] Soila Neumann MD Primary Care Provider [phone] Encounter Details Date Type Department Care Team (Late st Contact Info) Description 07/24/2023 Movinary Message Enc [facility] Family & Internal Medicine [facility] [address] [place] [address] [place] [address] [place] [address]. [address] [place] [address] todays appointment Social History Tobacco [...] Sex Assigned at Female 06/28/2021 1:39 PM FACTORY MANAGER Legal Sex Female 3:51 PM FACTORY MANAGER Gender Identity Female 06/28/2021 1:39 PM FACTORY MANAGER Sexual Orientation Straight 06/28/2021 1: 39 PM FACTORY MANAGER Occupation Industry Job Start Date Job End Date RETIRED Not on file Not on file Not on file documented as of this encounter Progress Notes * Gilma Barreto RN - 07/25/2023 8:36 AM CST Pt was rescheduled to today due to weather ORY MANAGER documented in this encounter Plan of Treatment Upcoming Encounters Date Type Department Care Team (Latest Contact Info) Description 11/13/2024 3:00 PM CDT Appointment [facility] [address] [place] [address] [place] [address] [facility]. [address] [place] [address] 11/20/2024 8:40 AM CDT Hospital Encounter [facility] Interventional [place] [address] [id number] Carolyn Fernando MD Three [facility] [address] [place] [address] 11/20/2024 8:40 AM CDT - 11/20/2024 9:00 AM CDT Surgery [facility] Interventional [place] [address] [id number] Carolyn Fernando MD Three [facility] [address] [place] [address] BLOCK SACROILIAC JOINT 12/05/2024 1:20 PM CDT Office Visit [facility] Orthopedic Surgery-[place] [address] [place], [place] [address] [place] [address] [place] [address] 01/31/2025 1:20 PM CDT Office Visit [facility] Family & Internal Medicine [facility] [address] [place] [phone] [place] [address] [facility]. [address] [place] [address] Scheduled Procedures Name Priority Associated Diagnoses Date/Ti me BLOCK SACROILIAC JOINT SI joint arthritis 11/20/2024 8:40 AM CDT documented as of this encounter Visit Diagnoses Not on filedocumented in this encounter Additional Health Concerns Assessment Noted Time PHQ-9 Depression Total Score: 2 08/03/19 2:16 PM FACTORY MANAGER documented as of this encounter Care Teams Awning Spreader Relationship Specialty Start [place] [address] [facility]. [address] [place] [address] PCP - General FAMILY PRACTICE 08/11/22 Jordan Castro MD 6812 [facility] [address] [facility] 123 [place] [address] Surgeon ORTHOPAEDIC SURGERY 01/13/20 documented as of this encounter
--- OUTSIDE RECORDS SUMMARY | 2024-11-08 12:11 | XMS_ITS | Encounter Summary ---
Author Organization [facility] Address [address] [place] [address] Care Team Providers Care Scrap Collector Name Role Phone Vanessa Ogden MD Primary Care Provider Jordan Castro MD Unavailable [phone] Soila Neumann MD Primary Care Provider [phone] Encounter Details Date Type Department Care Team (Late st Contact Info) Description 02/17/2021 Tribet Message Enc [facility] Medical Group Family & Internal Medicine [facility] [address] [place] [address] Vanessa Ogden [place] [phone] [place] [address] Question Social History Tobacco Use Types [...] Sex Assigned at Female 06/28/2021 1:39 PM TAX PREPARER Legal Sex Female 3:51 PM TAX PREPARER Gender Identity Female 06/28/2021 1:39 PM TAX PREPARER Sexual Orientation Straight 06/28/2021 1: 39 PM TAX PREPARER COVID-19 Exposure Response Date Recorded In the last month, have you been in contact with someone who was confirmed or suspected to have Coronavirus / COVID-19? No / Unsure 02/03/2021 1:16 PM CDT documented as of this encounter Plan of Treatment Upcoming Encounters Date Type Department Care Team (Latest Contact Info) Description 11/13/2024 3:00 PM CDT Appointment [facility] [address] [place] [address] [place] [address] [facility]. [address] [place] [address] 11/20/2024 8:40 AM CDT Hospital Encounter [facility] [place] [address] [id number] Carolyn Fernando MD Three [facility] [address] [place] [address] 11/20/2024 8:40 AM CDT - 11/20/2024 9:00 AM CDT Surgery [facility] [place] [address] [id number] Carolyn Fernando MD Three [facility] [address] [place] [address] BLOCK SACROILIAC JOINT 12/05/2024 1:20 PM CDT Office Visit [facility] Orthopedic Surgery-[place] [address] [address] [place], [place] [address] [place] [address] [address] [place], [place] 496750 01/31/2025 1:20 PM CDT Office Visit [facility] Medical Group Family & Internal Medicine [facility] [address] [place] [address] [place] [address] [facility] [place] [address] Scheduled Procedures Name Priority Associated Diagnoses Date/Ti me BLOCK SACROILIAC JOINT SI joint arthritis 11/20/2024 8:40 AM CDT documented as of this encounter Visit Diagnoses Not on filedocumented in this encounter Additional Health Concerns Infection Onset Date Last Indicated Resolved Time COVID-19 Rule Out 09/08/2021 09/08/2021 09/08/2021 10:37 AM TAX PREPARER documented as of this encounter Care Teams Scrap Collector Relationship Specialty Start Date End Date Vanessa Ogden MD PCP - General INTERNAL MEDICINE 08/14/18 08/10/22 [place] [address] [facility] [place] [address] PCP - General FAMILY PRACTICE 08/11/22 Jordan Castro MD 6812 [facility] [address] [place] [address] [place], [place] [id number] Surgeon ORTHOPAEDIC SURGERY 01/13/20 documented as of this encounter
--- OUTSIDE RECORDS SUMMARY | 2024-11-08 12:11 | XMS_ITS | Encounter Summary ---
Author Organization [facility] Address [address] [place] [address] Care Team Providers Care Animal Care Provider Name Role Phone Vanessa Ogden MD Primary Care Provider [phone] Jordan Castro MD Unavailable [phone] Soila Neumann MD Primary Care Provider [phone] Encounter Details Date Type Department Care Team (Late st Contact Info) Description 02/18/2021 Actifit Message Enc [facility] Medical Group Family & Internal Medicine [facility] [address] [place] [address] [place]essa Ogden [place] [phone] [place] [address] RE: Medication Questions Social History Tobacco [...] Sex Assigned at Female 06/28/2021 1:39 PM WREATH MACHINE OPERATOR Legal Sex Female 3:51 PM WREATH MACHINE OPERATOR Gender Identity Female 06/28/2021 1:39 PM WREATH MACHINE OPERATOR Sexual Orientation Straight 06/28/2021 1: 39 PM WREATH MACHINE OPERATOR COVID-19 Exposure Response Date Recorded In [...] Info) Description 11/13/2024 3:00 PM CDT Appointment [facility] [address] [place] [address] [place] [address] [facility]. [address] [place] [address] 11/20/2024 8:40 AM CDT Hospital Encounter [facility] Interventional [place] [address] [id number] Carolyn Fernando MD Three [facility] [address] [place] [address] 11/20/2024 8:40 AM CDT - 11/20/2024 9:00 AM CDT Surgery [facility] Interventional [place] [address] [id number] Carolyn Fernando MD Three [facility] [address] [place] [address] BLOCK SACROILIAC JOINT 12/05/2024 1:20 PM CDT Office Visit [facility] Orthopedic Surgery-[place] [address] [place] [address] Otero JoseDO [address] [place] [address] 01/31/2025 1:20 PM CDT Office Visit [facility] Family & Internal Medicine [facility] [address] [place] [address] [place] [address] [facility]. [address] [place] [address] Scheduled Procedures Name Priority Associated Diagnoses Date/Ti me BLOCK SACROILIAC JOINT SI joint arthritis 11/20/2024 8:40 AM CDT documented as of this encounter Visit Diagnoses Not on filedocumented in this encounter Additional Health Concerns Infection Onset Date Last Indicated Resolved Time COVID-19 Rule Out 09/08/2021 09/08/2021 09/08/2021 10:37 AM WREATH MACHINE OPERATOR documented as of this encounter Care Teams Animal Care Provider Relationship Specialty Start Date End Date Vanessa Ogden MD PCP - General INTERNAL MEDICINE 08/14/18 08/10/22 [place] [address] [facility]. [address] [place] [address] PCP - General FAMILY PRACTICE 08/11/22 Jordan Castro MD [address] [facility] [address] [facility] 123 [place] [address] Surgeon ORTHOPAEDIC SURGERY 01/13/20 documented as of this encounter
--- OUTSIDE RECORDS SUMMARY | 2024-11-08 12:11 | XMS_ITS | Encounter Summary ---
Author Organization [facility] Address [address] [place] [address] Care Team Providers Care Pattern Stamper Name Role Phone Vanessa Ogden MD Primary Care Provider [phone] Jordan Castro MD Unavailable [phone] Soila Neumann MD Primary Care Provider [phone] Encounter Details Date Type Department Care Team (Late st Contact Info) Description 09/07/2020 382 Communications Message [facility] [address] [place] [address] [facility] RE:Lab Results Social History Tobacco Use [...] Sex Assigned at Female 06/28/2021 1:39 PM JEWELRY DIPPER Legal Sex Female 3:51 PM JEWELRY DIPPER Gender Identity Female 06/28/2021 1:39 PM JEWELRY DIPPER Sexual Orientation Straight 06/28/2021 1: 39 PM JEWELRY DIPPER COVID-19 Exposure Response Date Recorded In the last month, have you been in contact with someone who was confirmed or suspected to have Coronavirus / COVID-19? No / Unsure 09/10/2020 11:25 AM JEWELRY DIPPER documented as of this encounter Progress Notes * Gilma Barreto RN - 09/07/2020 3:20 PM CST VITAMIN B12 S/P/B 193 - 986 PG/ML 1,054High Does pt need to go to monthly B12 injections instead of weekly like she is doing now? Printed to clarify with provider. LRY DIPPER documented in this encounter Plan of Treatment Upcoming Encounters Date Type Department Care Team (Latest Contact Info) Description 11/13/2024 3:[address] [facility] [address] [place] [address] [place] [address] [facility]. [address] [place] [address] 11/20/2024 8:40 AM CDT Hospital Encounter [facility] Interventional [place] [address] [id number] Carolyn Fernando MD Three [facility] [address] [place] [address] 11/20/2024 8:40 AM CDT - 11/20/2024 9:00 AM CDT Surgery [facility] Interventional [place] [address] [id number] Carolyn Fernando MD Three [facility] [address] [place] [address] BLOCK SACROILIAC JOINT 12/05/2024 1:20 PM CDT Office Visit [facility] Group Orthopedic Surgery-[place] [address] [place] [address] [place] [address] [place] [address] 01/31/2025 1:20 PM CDT Office Visit [facility] Medical Group Family & Internal Medicine [facility] [address] [place] [address] [place] [address] [facility]. [address] [place] [address] Scheduled Procedures Name Priority Associated Diagnoses Date/Ti me BLOCK SACROILIAC JOINT SI joint arthritis 11/20/2024 8:40 AM CDT documented as of this encounter Visit Diagnoses Not on filedocumented in this encounter Additional Health Concerns Infection Onset Date Last Indicated Resolved Time COVID-19 Rule Out 09/08/2021 09/08/2021 09/08/2021 10:37 AM JEWELRY DIPPER documented as of this encounter Care Teams Pattern Stamper Relationship Specialty Start Date End Date Vnaessa Ogden MD PCP - General INTERNAL MEDICINE 08/14/18 08/10/22 [place] [address] [facility]. [address] [place] [address] PCP - General FAMILY PRACTICE 08/11/22 Jordan Castro MD 6812 [facility] [address] [place] [address] [place] [address] Surgeon ORTHOPAEDIC SURGERY 01/13/20 documented as of this encounter
--- OUTSIDE RECORDS SUMMARY | 2024-11-08 12:11 | XMS_ITS | Encounter Summary ---
Author Organization [facility] Address [address] [place] [address] Care Team Providers Care Dementia Program Director Name Role Phone Vanessa Ogden MD Primary Care Provider [phone] Jordan Castro MD Unavailable [phone] Soila Neumann MD Primary Care Provider [phone] Encounter Details Date Type Department Care Team (Late st Contact Info) Description 03/12/2020 [employer] Message Enc [facility] Medical Group Family & Internal Medicine [facility] [phone] [place] [address] [facility] Provider Appointment Social History Tobacco Use Types Packs/Day Years Used Date Smoking Tobacco: Never Smokeless Tobacco: Never Alcohol Use Standard Drinks/Week Comments Yes 0 (1 standard drink = 0.6 oz pur e alcohol) Rare use PHQ-2 Answer Date Recorded PHQ-2 Score 0 09/28/2018 Comments No Sex and Gender Information Value Date Recorded Sex Assigned at Female 06/28/2021 1:39 PM SERVICE MECHANIC Legal Sex Female 3:51 PM SERVICE MECHANIC Gender Identity Female 06/28/2021 1:39 PM SERVICE MECHANIC Sexual Orientation Straight 06/28/2021 1: 39 PM SERVICE MECHANIC COVID-19 Exposure Response Date Recorded In the last month, have you been in contact with someone who was confirmed or suspected to have Coronavirus / COVID-19? No / Unsure 02/21/2020 3:15 PM CDT documented as of this encounter Plan of Treatment Upcoming Encounters Date Type Department Care Team (Latest Contact Info) Description 11/13/2024 3:00 PM CDT Appointment [facility] [address] [place] [address] [place] [address] [facility]. [address] [place] [address] 11/20/2024 8:40 AM CDT Hospital Encounter [facility] Interventional [place] [address] [id number] Carolyn Fernando MD Three [facility] [address] [place] [address] 11/20/2024 8:40 AM CDT - 11/20/2024 9:00 AM CDT Surgery [facility] Interventional Pain [place] [address] [id number] Carolyn Fernando MD Three [facility] [address] [place] [address] BLOCK SACROILIAC JOINT 12/05/2024 1:20 PM CDT Office Visit [facility] Orthopedic Surgery[place] [address] [place] [address] [place] [address] [place] [address] 01/31/2025 1:20 PM CDT Office Visit [facility] Medical [facility] Family & Internal Medicine [facility] [address] [place] [address] [place] [address] [facility]. [address] [place] [address] Scheduled Procedures Name Priority Associated Diagnoses Date/Ti me BLOCK SACROILIAC JOINT SI joint arthritis 11/20/2024 8:40 AM CDT documented as of this encounter Visit Diagnoses Not on filedocumented in this encounter Additional Health Concerns Infection Onset Date Last Indicated Resolved Time COVID-19 Rule Out 09/08/2021 09/08/2021 09/08/2021 10:37 AM SERVICE MECHANIC documented as of this encounter Care Teams Dementia Program Director Relationship Specialty Start Date End Date Vanessa Ogden MD PCP - General INTERNAL MEDICINE 08/14/18 08/10/22 [place] [address] [facility]. [address] [place] [address] PCP - General FAMILY PRACTICE 08/11/22 Jordan Castro MD 6812 [facility] [address] [facility] [address] [place] [address] Surgeon ORTHOPAEDIC SURGERY 01/13/20 documented as of this encounter
--- OUTSIDE RECORDS SUMMARY | 2024-11-08 12:11 | XMS_ITS | Encounter Summary ---
Author Organization [facility] System Address [address] [place] [address] Care Team Providers Care Operator Bearer Systems Name Role Phone Vanessa Ogden MD Primary Care Provider [phone] Jordan Castro MD Unavailable [phone] Soila Neumann MD Primary Care Provider [phone] Encounter Details Date Type Department Care Team (Late st Contact Info) Description 02/25/2020 Ioxust Message Enc [facility] Medical Group Family & Internal Medicine [facility] [address] [place] [address] [place] [id number] [place] [address] RE: Medication Questions Social History Tobacco Use Types Packs/Day Years Used Date Smoking Tobacco: Never Smokeless Tobacco: Never Alcohol Use Standard Drinks/Week Comments Yes 0 (1 standard drink = 0.6 oz pur e alcohol) Rare use PHQ-2 Answer Date Recorded PHQ-2 Score 0 09/28/2018 Comments No Sex and Gender Information Value Date Recorded Sex Assigned at Female 06/28/2021 1:39 PM DISTRICT ATTORNEY Legal Sex Female 3:51 PM DISTRICT ATTORNEY Gender Identity Female 06/28/2021 1:39 PM DISTRICT ATTORNEY Sexual Orientation Straight 06/28/2021 1: 39 PM DISTRICT ATTORNEY COVID-19 Exposure Response Date Recorded In the [...] CDT Appointment [facility] [address] [place] [address] [place] [address] [facility]. [address] [place] [address] 11/20/2024 8:40 AM CDT Hospital Encounter [facility] Interventional [place] [address] [id number] Carolyn Fernando MD Three [facility] [address] [place] [address] 11/20/2024 8:40 AM CDT - 11/20/2024 9:00 AM CDT Surgery [facility] Interventional [place] [address] [id number] Carolyn Fernando MD Three [facility] [address] [place] [address] BLOCK SACROILIAC JOINT 12/05/2024 1:20 PM CDT Office Visit [facility] Group Orthopedic Surgery-Daniel [address] [place], [place] 327690 [place] [address] [place], [place] [address] 01/31/2025 1:20 PM CDT Office Visit [facility] Medical Group Family & Internal Medicine [facility] [address] [place] [address] [place] [address] [facility] [address] [place] [address] Scheduled Procedures Name Priority Associated Diagnoses Date/Ti me BLOCK SACROILIAC JOINT SI joint arthritis 11/20/2024 8:40 AM CDT documented as of this encounter Visit Diagnoses Not on filedocumented in this encounter Additional Health Concerns Infection Onset Date Last Indicated Resolved Time COVID-19 Rule Out 09/08/2021 09/08/2021 09/08/2021 10:37 AM DISTRICT ATTORNEY documented as of this encounter Care Teams Operator Bearer Systems Relationship Specialty Start Date End Date Vanessa Ogden MD PCP - General INTERNAL MEDICINE 08/14/18 08/10/22 [place] [address] [facility] [address] [place] [address] PCP - General FAMILY PRACTICE 08/11/22 Jordan Castro MD 6812 [facility] [address] [facility] [address] [place] [address] Surgeon ORTHOPAEDIC SURGERY 01/13/20 documented as of this encounter
--- OUTSIDE RECORDS SUMMARY | 2024-11-08 12:11 | XMS_ITS | Encounter Summary ---
Author Organization [facility] Address [address] [place] [address] Care Team Providers Care Fibreglass Laminator Name Role Phone Vanessa Ogden MD Primary Care Provider [phone] Jordan Castro MD Unavailable [phone] Soila Neumann MD Primary Care Provider [phone] Encounter Details Date Type Department Care Team (Late st Contact Info) Description 05/03/2021 MyCSerene Oncologyt Message Enc [facility] Medical Group Family & Internal Medicine [facility] [address] [place] [address] [place]essa Ogden [place] [phone] [place] [address] RE: Medication Questions Social History Tobacco [...] Sex Assigned at Female 06/28/2021 1:39 PM TRACK TEMPLATE MAKER Legal Sex Female 3:51 PM TRACK TEMPLATE MAKER Gender Identity Female 06/28/2021 1:39 PM TRACK TEMPLATE MAKER Sexual Orientation Straight 06/28/2021 1: 39 PM TRACK TEMPLATE MAKER Occupation Industry Job Start Date Job End [...] Description 11/13/2024 3:[address] [facility] [address] [facility] [place] [address] [place] [address] [facility]. [address] [place] [address] 11/20/2024 8:40 AM CDT Hospital Encounter [facility] Interventional [place] [address] [id number] Carolyn Fernando MD Three [facility] [address] [place] [address] 11/20/2024 8:40 AM CDT - 11/20/2024 9:00 AM CDT Surgery [facility] Interventional [place] [address] [id number] Carolyn Fernando MD Three [facility] [address] [place] [address] BLOCK SACROILIAC JOINT 12/05/2024 1:20 PM CDT Office Visit [facility] Orthopedic Surgery-[place] [address] [place] [address] [place] [address] [place] [address] 01/31/2025 1:20 PM CDT Office Visit [facility] Family & Internal Medicine [facility] [address] [place] [address] [place] [address] [facility] [address] [place], [place] [phone] Scheduled Procedures Name Priority Associated Diagnoses Date/Ti me BLOCK SACROILIAC JOINT SI joint arthritis 11/20/2024 8:40 AM CDT documented as of this encounter Visit Diagnoses Not on filedocumented in this encounter Additional Health Concerns Infection Onset Date Last Indicated Resolved Time COVID-19 Rule Out 09/08/2021 09/08/2021 09/08/2021 10:37 AM TRACK TEMPLATE MAKER documented as of this encounter Care Teams Fibreglass Laminator Relationship Specialty Start Date End Date Vanessa Ogden MD PCP - General INTERNAL MEDICINE 08/14/18 08/10/22 [place] [address] [facility] [address] [place], [place] [phone] PCP - General FAMILY PRACTICE 08/11/22 Jordan Castro MD 6812 [facility] [address] [place], [place] [id number] Surgeon ORTHOPAEDIC SURGERY 01/13/20 documented as of this encounter
--- OUTSIDE RECORDS SUMMARY | 2024-11-08 12:11 | XMS_ITS | Encounter Summary ---
Author Organization [facility] Address [address] [place] [address] Care Team Providers Care Microwave Technician Name Role Phone Jordan Castro MD Unavailable [phone] Soila Neumann MD Primary Care Provider Encounter Details Date Type Department Care Team (Late st Contact Info) Description 10/21/2024 Results Follow-Up [facility] Medical Group Family & Internal Medicine [address] [address] [place] Neumann [place] [phone] [place] [address]. [address] [place] [address] MG/PCCL UDS W CONF Social [...] Sex Assigned at Female 06/28/2021 1:39 PM COMMUNICATION MANAGER Legal Sex Female 3:51 PM COMMUNICATION MANAGER Gender Identity Female 06/28/2021 1:39 PM COMMUNICATION MANAGER Sexual Orientation Straight 06/28/2021 1: 39 PM COMMUNICATION MANAGER Occupation Industry Job Start Date Job End Date RETIRED Not on file Not on file Not on file documented as of this encounter Plan of Treatment Upcoming Encounters Date Type Department Care Team (Latest Contact Info) Description 11/13/2024 3:[address] [facility] [address] [place], [place] [phone] [place] [address] [facility]. [address] [place] [address] [phone] 11/20/2024 8:40 AM CDT Hospital Encounter [facility] Interventional [place] [address] [id number] Carolyn Fernando MD Three [facility] [address] [place] [address] 11/20/2024 8:40 AM CDT - 11/20/2024 9:00 AM CDT Surgery [facility] [place] [address] [id number] Carolyn Fernando MD Three [facility] [address] [place] [address] BLOCK SACROILIAC JOINT 12/05/2024 1:20 PM CDT Office Visit [facility] Orthopedic [facility] [address] [place], [place] [address] [place] [address] [place], [place] 168670 01/31/2025 1:20 PM CDT Office Visit [facility] Medical [facility] Family & Internal Medicine [facility] [address] [place] [address] [place] [address] [address] [place] [address] Scheduled Procedures Name Priority Associated Diagnoses Date/Ti [...] Total Score: 2 08/03/19 23 2:16 PM COMMUNICATION MANAGER documented as of this encounter Care Teams Microwave Technician Relationship Specialty [place] [address] [address] [place] [address] PCP - General FAMILY PRACTICE 08/11/22 Jordan Castro MD 6812 [facility] [address] [address] Surgeon ORTHOPAEDIC SURGERY 01/13/20 documented as of this encounter
--- OUTSIDE RECORDS SUMMARY | 2024-11-08 12:11 | XMS_ITS | Encounter Summary ---
Author Organization [facility] Address [address] [place] [address] Care Team Providers Care Siding Stapler Name Role Phone Vanessa Ogden MD Primary Care Provider [phone] Jordan Castro MD Unavailable [phone] Soila Neumann MD Primary Care Provider [phone] Encounter Details Date Type Department Care Team (Late st Contact Info) Description 06/02/2020 Crystal ISt Message Enc [facility] Medical Group Family & Internal Medicine [facility] [address] [place] [address] Vanessa Ogden [place] [id number] [place] [address] Referral Request Social History Tobacco Use Types Packs/Day Years Used Date Smoking Tobacco: Never Smokeless Tobacco: Never Alcohol Use Standard Drinks/Week Comments Yes 0 (1 standard drink = 0.6 oz pur e alcohol) Rare use PHQ-2 Answer Date Recorded PHQ-2 Score 0 09/28/2018 Comments No Sex and Gender Information Value Date Recorded Sex Assigned at Female 06/28/2021 1:39 PM GRAIN DRIER OPERATOR Legal Sex Female 3:51 PM GRAIN DRIER OPERATOR Gender Identity Female 06/28/2021 1:39 PM GRAIN DRIER OPERATOR Sexual Orientation Straight 06/28/2021 1: 39 PM GRAIN DRIER OPERATOR COVID-19 Exposure Response Date Recorded In the last month, have you been in contact with someone who was confirmed or suspected to have Coronavirus / COVID-19? No / Unsure 05/25/2020 3:08 PM GRAIN DRIER OPERATOR documented as of this encounter Progress Notes * Porsha Manzo - 06/09/2020 10:32 AM CST We will get this rerouted and contact the patient. Thank you! N DRIER OPERATOR documented in this encounter Plan of Treatment Upcoming Encounters Date Type Department Care Team (Latest Contact Info) Description 11/13/2024 3:00 PM CDT Appointment [facility] [address] [place] [address] [place] [address] [facility]. [address] [place] [address] 11/20/2024 8:40 AM CDT Hospital Encounter [facility] Interventional [place] [address] [id number] Carolyn Fernando MD Three [facility] [address] [place] [address] 11/20/2024 8:40 AM CDT - 11/20/2024 9:00 AM CDT Surgery [facility] Interventional Pain [place] [address] [id number] Carolyn Fernando MD Three [facility] [address] [place] [address] BLOCK SACROILIAC JOINT 12/05/2024 1:20 PM CDT Office Visit [facility] Group Orthopedic Surgery-Daniel [address] [address] [place], [place] [phone] [place] [address] [place], [place] [address] 01/31/2025 1:20 PM CDT Office Visit [facility] Medical Group Family & Internal Medicine [facility] [address] [place] [address] [place] [address] [address] [place] [address] Scheduled Procedures Name Priority Associated Diagnoses Date/Ti me BLOCK SACROILIAC JOINT SI joint arthritis 11/20/2024 8:40 AM CDT documented as of this encounter Visit Diagnoses Not on filedocumented in this encounter Additional Health Concerns Infection Onset Date Last Indicated Resolved Time COVID-19 Rule Out 09/08/2021 09/08/2021 09/08/2021 10:37 AM GRAIN DRIER OPERATOR documented as of this encounter Care Teams Siding Stapler Relationship Specialty Start Date End Date Vanessa Ogden MD PCP - General INTERNAL MEDICINE 08/14/18 08/10/22 [place] [address] [address] [place] [address] PCP - General FAMILY PRACTICE 08/11/22 Jordan Castro MD 6812 [facility] [address] [facility] 123 [place], [place] [phone] Surgeon ORTHOPAEDIC SURGERY 01/13/20 documented as of this encounter
--- OUTSIDE RECORDS SUMMARY | 2024-11-08 12:11 | XMS_ITS | Encounter Summary ---
Author Organization [facility] Address [address] [place] [address] Care Team Providers Care Sanitary Aide Name Role Phone Jordan Castro MD Unavailable Soila Neumann MD Primary Care Provider [phone] Encounter Details Date Type Department Care Team (Late st Contact Info) Description 09/13/2022 [place]ot Message Enc [facility] Medical Group Family & Internal Medicine [facility] [address] [place] [address] Vanessa Ogden [place] [address] [place] [address] [address] Vergara/heart monitor Social History Tobacco [...] Sex Assigned at Female 06/28/2021 1:39 PM VOCATIONAL REHABILITATION SPECIALIST Legal Sex Female 3:51 PM VOCATIONAL REHABILITATION SPECIALIST Gender Identity Female 06/28/2021 1:39 PM VOCATIONAL REHABILITATION SPECIALIST Sexual Orientation Straight 06/28/2021 1: 39 PM VOCATIONAL REHABILITATION SPECIALIST Occupation Industry Job Start Date Job End Date RETIRED Not on file Not on file Not on file documented as of this encounter Plan of Treatment Upcoming Encounters Date Type Department Care Team (Latest Contact Info) Description 11/13/2024 3:[address] [facility] [address] [place] [address] [place] [address] [facility]. [address] [place] [address] [id number] 11/20/2024 8:40 AM CDT Hospital Encounter [facility] Interventional [place] [address] [id number] Carolyn Fernando MD Three [facility] [address] [place] [place] [address] 11/20/2024 8:40 AM CDT - 11/20/2024 9:00 AM CDT Surgery [facility] [place] [address] [id number] Carolyn Fernando MD Three [facility] [address] [place] [place] [address] BLOCK SACROILIAC JOINT 12/05/2024 1:20 PM CDT Office [facility] [address] [place] [address] [place] [address] [place], [place] [address] 01/31/2025 1:20 PM CDT Office Visit [facility] Family & Internal Medicine [facility] [address] [place] [address] [place] [address] [address] [place] [address] Scheduled Procedures Name Priority Associated Diagnoses Date/Ti me BLOCK SACROILIAC JOINT SI joint arthritis 11/20/2024 8:40 AM CDT documented as of this encounter Visit Diagnoses Not on filedocumented in this encounter Additional Health Concerns Assessment Noted Time PHQ-9 Depression Total Score: 2 08/03/19 23 2:16 PM VOCATIONAL REHABILITATION SPECIALIST documented as of this encounter Care Teams Sanitary Aide Relationship Specialty [place] [address] [address] [place] [address] PCP - General FAMILY PRACTICE 08/11/22 Jordan Castro MD 6812 [facility] [address] [place] [address] Surgeon ORTHOPAEDIC SURGERY 01/13/20 documented as of this encounter
--- OUTSIDE RECORDS SUMMARY | 2024-11-08 12:11 | XMS_ITS | Encounter Summary ---
Author Organization [facility] Address [address] [place] [address] Care Team Providers Care Enrollment Coordinator Name Role Phone Vanessa Ogdne MD Primary Care Provider [phone] Jordan Castro MD Unavailable [phone] Soila Neumann MD Primary Care Provider [phone] Encounter Details Date Type Department Care Team (Late st Contact Info) Description 12/27/2019 [employer]ubbleLife Mediat Message Enc [facility] Medical Group Family & Internal Medicine [facility] [address] [place] [address] [place] Ogden [place] [address] [place] [address] RE: Other Social History Tobacco Use Types Packs/Day Years Used Date Smoking Tobacco: Never Smokeless Tobacco: Never Alcohol Use Standard Drinks/Week Comments Yes 0 (1 standard drink = 0.6 oz pur e alcohol) Rare use PHQ-2 Answer Date Recorded PHQ-2 Score 0 09/28/2018 Comments No Sex and Gender Information Value Date Recorded Sex Assigned at Female 06/28/2021 1:39 PM HEALTH ECONOMIST Legal Sex Female 3:51 PM HEALTH ECONOMIST Gender Identity Female 06/28/2021 1:39 PM HEALTH ECONOMIST Sexual Orientation Straight 06/28/2021 1: 39 PM HEALTH ECONOMIST COVID-19 Exposure Response Date Recorded In the last month, have you been in contact with someone who was confirmed or suspected to have Coronavirus / COVID-19? No / Unsure 12/27/2019 11:09 AM CDT documented as of this encounter Plan of Treatment Upcoming Encounters Date Type Department Care Team (Latest Contact Info) Description 11/13/2024 3:[address] [facility] [address] [place], [place] [phone] [place] [address] [facility]. [address] [place] [address] [phone] 11/20/2024 8:40 AM CDT Hospital Encounter [facility] Interventional [place] [address] [id number] Carolyn Fernando MD Three [facility] [address] [place] [address] 11/20/2024 8:40 AM CDT - 11/20/2024 9:00 AM CDT Surgery [facility] Interventional [place] [address] [id number] Carolyn Fernando MD Three [facility] [address] [place] [address] BLOCK SACROILIAC JOINT 12/05/2024 1:20 PM CDT Office Visit [facility] Orthopedic Surgery-[place] [address] [place] [address] [place] [address] [place] [address] 01/31/2025 1:20 PM CDT Office Visit [facility] Family & Internal Medicine [facility] [address] [place] [address] [place] [address] [facility]. [address] [place] [address] [phone] Scheduled Procedures Name Priority Associated Diagnoses Date/Ti me BLOCK SACROILIAC JOINT SI joint arthritis 11/20/2024 8:40 AM CDT documented as of this encounter Visit Diagnoses Not on filedocumented in this encounter Additional Health Concerns Infection Onset Date Last Indicated Resolved Time COVID-19 Rule Out 09/08/2021 09/08/2021 09/08/2021 10:37 AM HEALTH ECONOMIST documented as of this encounter Care Teams Enrollment Coordinator Relationship Specialty Start Date End Date Vanessa Ogden MD PCP - General INTERNAL MEDICINE 08/14/18 08/10/22 [place] [address] [facility] [address] [place] [address] PCP - General FAMILY PRACTICE 08/11/22 Jordan Castro MD 6812 [facility] [address] [facility] [address] [place] [address] Surgeon ORTHOPAEDIC SURGERY 01/13/20 documented as of this encounter
--- OUTSIDE RECORDS SUMMARY | 2024-11-08 12:11 | XMS_ITS | Encounter Summary ---
Author Organization [facility] Address [address] [place] [address] Care Team Providers Care 3Rd Mate Name Role Phone Jordan Castro MD Unavailable Soila Neumann MD Primary Care Provider [phone] Encounter Details Date Type Department Care Team (Late st Contact Info) Description 08/14/2023 BitWine Message Enc [facility] Medical Group Family & Internal Medicine [facility] [address] [place] [address] Soila Neumann MD [phone] [place] [address]. [address] [place] [address] Endoscopy referral Social History Tobacco [...] Sex Assigned at Female 06/28/2021 1:39 PM SIGN OUT CLERK Legal Sex Female 3:51 PM SIGN OUT CLERK Gender Identity Female 06/28/2021 1:39 PM SIGN OUT CLERK Sexual Orientation Straight 06/28/2021 1: 39 PM SIGN OUT CLERK Occupation Industry Job Start Date Job End Date RETIRED Not on file Not on file Not on file documented as of this encounter Plan of Treatment Upcoming Encounters Date Type Department Care Team (Latest Contact Info) Description 11/13/2024 3:[address] [facility] [address] [place] [address] [place] [address] [facility] [address] [place] [address] [phone] 11/20/2024 8:40 AM CDT Hospital Encounter [facility] Interventional [place] [address] [phone] Carolyn Fernando MD Three [facility] [address] [place] [address] 11/20/2024 8:40 AM CDT - 11/20/2024 9:00 AM CDT Surgery [facility] Interventional [place] [address] [id number] Carolyn Fernando MD Three [facility] [address] [place] [address] BLOCK SACROILIAC JOINT 12/05/2024 1:20 PM CDT Office Visit [facility] Orthopedic Surgery-[place] [address] [place] [address] [place] [address] [place], [place] 9[address]20 01/31/2025 1:20 PM CDT Office Visit [facility] Family & Internal Medicine [facility] [address] [place] [address] [place] [address] [address] [place] [address] Scheduled Procedures Name Priority Associated Diagnoses Date/Ti me BLOCK SACROILIAC JOINT SI joint arthritis 11/20/2024 8:40 AM CDT documented as of this encounter Visit Diagnoses Not on filedocumented in this encounter Additional Health Concerns Assessment Noted Time PHQ-9 Depression Total Score: 2 08/03/19 23 2:16 PM SIGN OUT CLERK documented as of this encounter Care Teams 3Rd Mate Relationship Specialty [place] [address] [address] [place] [address] PCP - General FAMILY PRACTICE 08/11/22 Jordan Castro MD 6812 [facility] [address] [place] [address] Surgeon ORTHOPAEDIC SURGERY 01/13/20 documented as of this encounter
--- OUTSIDE RECORDS SUMMARY | 2024-11-08 12:11 | XMS_ITS | Encounter Summary ---
Author Organization [facility] Address [address] [place] [address] Care Team Providers Care Cord Maker Name Role Phone Jordan Castro MD Unavailable Soila Neumann MD Primary Care Provider Encounter Details Date Type Department Care Team (Late st Contact Info) Description 08/12/2022 Boxfish Message Enc [facility] Family & Internal Medicine [facility] [id number] [place] [address] [place] [id number] [place] [address] Referral Social History Tobacco Use Types [...] Sex Assigned at Female 06/28/2021 1:39 PM LIVESTOCK TRUCKER Legal Sex Female 3:51 PM LIVESTOCK TRUCKER Gender Identity Female 06/28/2021 1:39 PM LIVESTOCK TRUCKER Sexual Orientation Straight 06/28/2021 1: 39 PM LIVESTOCK TRUCKER Occupation Industry Job Start Date Job End Date RETIRED Not on file Not on file Not on file COVID-19 Exposure Response Date Recorded In the last 10 days, have yo u been in contact with someone who was confirmed or suspected to have Coronavirus/COVID-19? No / Unsure 08/03/2022 1:31 PM LIVESTOCK TRUCKER documented as of this encounter Plan of Treatment Upcoming Encounters Date Type Department Care Team (Latest Contact Info) Description 11/13/2024 3:00 PM CDT Appointment [facility] [address] [place] [address] [place] [address] [facility] [address] [place] [phone] 11/20/2024 8:40 AM CDT Hospital Encounter [facility] Interventional [place] [address] [phone] Carolyn Fernando MD Three [facility] [address] [place] [address] 11/20/2024 8:40 AM CDT - 11/20/2024 9:00 AM CDT Surgery [facility] Interventional [place] [address] [phone] Carolyn Fernando MD Three [facility] [address] [place] [address] BLOCK SACROILIAC JOINT 12/05/2024 1:20 PM CDT Office Visit [facility] Orthopedic Surgery-[place] [address] [place] [phone] [place] [address] [place], [place] [phone] 01/31/2025 1:20 PM CDT Office Visit [facility] Family & Internal Medicine [facility] [address] [place] [address] [place] [address] [facility] [place]. [address] [place] [address] Scheduled Procedures Name Priority Associated Diagnoses Date/Ti me BLOCK SACROILIAC JOINT SI joint arthritis 11/20/2024 8:40 AM CDT documented as of this encounter Visit Diagnoses Not on filedocumented in this encounter Additional Health Concerns Assessment Noted Time PHQ-9 Depression Total Score: 2 08/03/19 2:16 PM LIVESTOCK TRUCKER documented as of this encounter Care Teams Cord Maker Relationship Specialty [place] [address] [facility]. [address] [place] [address] PCP - General FAMILY PRACTICE 08/11/22 Jordan Castro MD [address]12 [facility] [address] [address] Surgeon ORTHOPAEDIC SURGERY 01/13/20 documented as of this encounter
--- OUTSIDE RECORDS SUMMARY | 2024-11-08 12:11 | XMS_ITS | Encounter Summary ---
Author Organization [facility] Address [address] [place] [address] Care Team Providers Care Director Payment Name Role Phone Jordan Castro MD Unavailable [phone] Soila Neumann MD Primary Care Provider [phone] Encounter Details Date Type Department Care Team (Late st Contact Info) Description 12/28/2022 Digital Ocean Message Enc [facility] - [facility] [address] [place], [place] [address] [facility], [facility] Provider Air Quality Message Social History Tobacco [...] Sex Assigned at Female 06/28/2021 1:39 PM MECHANICAL MAINTENANCE WORKER Legal Sex Female 3:51 PM MECHANICAL MAINTENANCE WORKER Gender Identity Female 06/28/2021 1:39 PM MECHANICAL MAINTENANCE WORKER Sexual Orientation Straight 06/28/2021 1: 39 PM MECHANICAL MAINTENANCE WORKER Occupation Industry Job Start Date Job End [...] 11/13/2024 3:[address] [facility] [address] [place], [place] [phone] [place] [address] [facility]. [address] [place] [id number] 11/20/2024 8:40 AM CDT Hospital Encounter [facility] Interventional [place] [address] [id number] Carolyn Fernando MD Three [facility] [address] [place] [address] 11/20/2024 8:40 AM CDT - 11/20/2024 9:00 AM CDT Surgery [facility] [place]ventional [place] [address] [phone] Carolyn Fernando MD Three [facility] [address] [place] [address] BLOCK SACROILIAC JOINT 12/05/2024 1:20 PM CDT Office Visit [facility] Orthopedic Surgery[place] [address] [place] [address] [place] [address] [place], [place] [address] 01/31/2025 1:20 PM CDT Office Visit [facility] Family & Internal Medicine [facility] [address] [place] [address] [place] [address] [address] [place] [address] Scheduled Procedures Name Priority Associated Diagnoses Date/Ti me BLOCK SACROILIAC JOINT SI joint arthritis 11/20/2024 8:40 AM CDT documented as of this encounter Visit Diagnoses Not on filedocumented in this encounter Additional Health Concerns Assessment Noted Time PHQ-9 Depression Total Score: 2 08/03/19 23 2:16 PM MECHANICAL MAINTENANCE WORKER documented as of this encounter Care Teams Director Payment Relationship Specialty [place] [address] [address] [place] [address] PCP - General FAMILY PRACTICE 08/11/22 Jordan Castro MD 6812 [facility] [address] [facility] [address] [place] [address] Surgeon ORTHOPAEDIC SURGERY 01/13/20 documented as of this encounter
--- OUTSIDE RECORDS SUMMARY | 2024-11-08 12:11 | XMS_ITS | Referral Summary ---
Author Organization [facility] 2 Address [address] [facility] [place] [address] Care Team Providers Care Well Digger Name Role Phone Trung Miles MD Unavailable [phone] Soila Neumann MD Primary Care Provider [phone] Allergies Active Allergy Reactions Criticality Noted Date [...] taking.Reported on 07/22/2024 CYANOCOBALAMIN /FOLIC ACID (VITAMIN Z18-AXNQC ACID) 1,000-400 mcg tablet, sublingual 0 0 [...] on file Legal Sex Female 2:27 AM POULTRY FARM WORKER Gender Identity Not on file Sexual Orientation Not on file Last Filed Vital Signs Vital Sign Reading Time Taken Comments Blood Pressure 107/66 07/22/2024 11:38 AM POULTRY FARM WORKER Pulse 82 07/22/2024 12:05 PM POULTRY FARM WORKER Temperature 36.6 C (97.9 F) 07/22/2024 11:38 AM POULTRY FARM WORKER Respiratory Rate 18 07/22/2024 11:3 8 AM POULTRY FARM WORKER Oxygen Saturation 97% 07/22/2024 12: 05 PM POULTRY FARM WORKER Inhaled Oxygen Concentration - - Weight 107.8 kg (237 lb 11.2 oz) 2024 11:38 AM POULTRY FARM WORKER Height 165.1 cm (5' 5 ) 07/22/2024 11:3 8 AM POULTRY FARM WORKER Body Mass Index 39.56 07/22/2024 11:38 AM POULTRY FARM WORKER Plan of Treatment Not on file Insurance MEDICARE [facility] MEDICARE [facility] [place] [address] MEDICARE [facility] Care Teams Well Digger Relationship Specialty [place] [address] [facility] [address] [address] [address] PCP - General Family Medicine 12/01/23 Trung Miles MD [address] [facility] [address] [place] [address] Surgeon Vascular Surgery 11/07/22
--- OUTSIDE RECORDS SUMMARY | 2024-11-08 12:11 | XMS_ITS | Clinical Summary ---
Author Organization [facility] 2 Address [address] [facility] [place] [address] Care Team Providers Care Rib Matcher And Fitter Name Role Phone Trung Miles MD Unavailable [phone] Soila Neumann MD Primary Care Provider [phone] Allergies Active Allergy Reactions Criticality Noted Date [...] taking.Reported on 07/22/2024 CYANOCOBALAMIN /FOLIC ACID (VITAMIN I28-XSHEL ACID) 1,000-400 mcg tablet, sublingual 0 0 [...] on file Legal Sex Female 2:27 AM COOKER HELPER Gender Identity Not on file Sexual Orientation Not on file Obstetrics History Last Filed Vital Signs Vital Sign Reading Time Taken Comments Blood Pressure 107/66 07/22/2024 11:38 AM COOKER HELPER Pulse 82 07/22/2024 12:05 PM COOKER HELPER Temperature 36.6 C (97.9 F) 07/22/2024 11:38 AM COOKER HELPER Respiratory Rate 18 07/22/2024 11:3 8 AM COOKER HELPER Oxygen Saturation 97% 07/22/2024 12: 05 PM COOKER HELPER Inhaled Oxygen Concentration - - Weight 107.8 kg (237 lb 11.2 oz) 2024 11:38 AM COOKER HELPER Height 165.1 cm (5' 5 ) 07/22/2024 11:3 8 AM COOKER HELPER Body Mass Index 39.56 07/22/2024 11:38 AM COOKER HELPER Plan of Treatment Health Maintenance Due Date [...] , 03/30/2021, Additional history exists Insurance MEDICARE [facility] MEDICARE Member Subscriber Plan / Payer (Ef fective 2020-Present) Name:Tabatha Alex L Member ID:[id number] Relation to Subscriber:Self Name:Tabatha Alex L Subscriber ID:[id number] Payer ID:[id number] Group ID:Not on file Type:MEDICARE TRADITIONAL Address: [place] [id number] [facility] [place] [address] MEDICARE [facility] Care Teams Rib Matcher And Fitter Relationship Specialty [place] [address] [address] [place] [address] PCP - General Family Medicine 12/01/23 Trung Miles MD [address] [facility] [address] [address] Surgeon Vascular Surgery 11/07/22
--- OUTSIDE RECORDS SUMMARY | 2024-11-08 12:11 | XMS_ITS | Encounter Summary ---
Author Organization [facility] Address [address] [place] [address] Care Team Providers Care Divorce Lawyer Name Role Phone Vanessa Ogden MD Primary Care Provider [phone] Jordan Castro MD Unavailable [phone] Soila Neumann MD Primary Care Provider [phone] Encounter Details Date Type Department Care Team (Latest Contact Info) Description 04/18/2022 Zipzoom Message Enc [facility] Family & Internal Medicine [facility] [address] [place] [address] [place] [address] [place] [address] Persons with Disabilities Certification Social [...] Sex Assigned at Female 06/28/2021 1:39 PM PACKAGE DELIVERY DRIVER Legal Sex Female 3:51 PM PACKAGE DELIVERY DRIVER Gender Identity Female 06/28/2021 1:39 PM PACKAGE DELIVERY DRIVER Sexual Orientation Straight 06/28/2021 1: 39 PM PACKAGE DELIVERY DRIVER Occupation Industry Job Start Date Job End [...] for a temporary placard. [facility]. * Bety Van RN - 04/18/2022 4:44 PM CDT Please advise documented in this encounter Plan of Treatment Upcoming Encounters Date Type Department Care Team (Latest Contact Info) Description 11/13/2024 3:00 PM CDT Appointment [facility] [address] [place], [place] [phone] [place] [address] [address] [place], [place] [phone] 11/20/2024 8:40 AM CDT Hospital Encounter [facility] Interventional [place] [address] [id number] Carolyn Fernando MD Three [facility] [address] [place] [address] 11/20/2024 8:40 AM CDT - 11/20/2024 9:00 AM CDT Surgery [facility] Interventional [place] [address] [id number] Carolyn Fernando MD Three [facility] [address] [place] [address] BLOCK SACROILIAC JOINT 12/05/2024 1:20 PM CDT Office Visit [facility] Orthopedic Surgery-[place] [address] [place] [address] [place] [address] [place] [address] 01/31/2025 1:20 PM CDT Office Visit [facility] Family & Internal Medicine [address] [address] Soila Nuemann MD [address] [place] [address] Scheduled Procedures Name Priority Associated Diagnoses Date/Ti ny BLOCK SACROILIAC JOINT SI joint arthritis 11/20/2024 8:40 AM CDT documented as of this encounter Visit Diagnoses Not on filedocumented in this encounter Additional Health Concerns Assessment Noted Time PHQ-9 Depression Total Score: 3 09/09/19 22 9:29 AM PACKAGE DELIVERY DRIVER documented as of this encounter Care Teams Divorce Lawyer Relationship Specialty Start Date End Date Vanessa Ogden MD PCP - General INTERNAL MEDICINE 08/14/18 08/10/22 [place] [address] [facility]. [address] [place] [address] PCP - General FAMILY PRACTICE 08/11/22 Jordan Castro MD [address]12 [facility] [address] [facility] 123 [place] [address] Surgeon ORTHOPAEDIC SURGERY 01/13/20 documented as of this encounter
--- OUTSIDE RECORDS SUMMARY | 2024-11-08 12:11 | XMS_ITS | Encounter Summary ---
Author Organization [facility] Address [address] [place] [address] Care Team Providers Care Business Information Consultant Name Role Phone Jordan Castro MD Unavailable [phone] Soila Neumann MD Primary Care Provider [phone] Encounter Details Date Type Department Care Team (Latest Contact Info) Description 02/12/2024 Adwingst Message Enc [facility] Multispecialty Care - [address], [address] [place] [address] Dinesh Cruz DO Recent EDG biopsy Social [...] Sex Assigned at Female 06/28/2021 1:39 PM TOW PICKER Legal Sex Female 3:51 PM TOW PICKER Gender Identity Female 06/28/2021 1:39 PM TOW PICKER Sexual Orientation Straight 06/28/2021 1: 39 PM TOW PICKER Occupation Industry Job Start Date Job End Date RETIRED Not on file Not on file Not on file documented as of this encounter Plan of Treatment Upcoming Encounters Date Type Department Care Team (Latest Contact Info) Description 11/13/2024 3:[address] [facility] [address] [place] [address] [place] [address] [facility]. [address] [place] [id number] 11/20/2024 8:40 AM CDT Hospital Encounter [facility] Interventional [place] [address] [id number] Carolyn Fernando MD Three [facility] [address] [place] [address] 11/20/2024 8:40 AM CDT - 11/20/2024 9:00 AM CDT Surgery [facility] Interventional [place] [address] [phone] Carolyn Fernando MD Three [facility] [address] [place] [address] BLOCK SACROILIAC JOINT 12/05/2024 1:20 PM CDT Office Visit [facility] Orthopedic Surgery-[place] [address] [place] [address] [place] [address] [place] [address] 01/31/2025 1:20 PM CDT Office Visit [facility] Family & Internal Medicine [facility] [address] [place] [address] [place] [address] [facility] [address] [place] [address] Scheduled Procedures Name Priority Associated Diagnoses Date/Ti me BLOCK SACROILIAC JOINT SI joint arthritis 11/20/2024 8:40 AM CDT documented as of this encounter Visit Diagnoses Not on filedocumented in this encounter Additional Health Concerns Assessment Noted Time PHQ-9 Depression Total Score: 2 08/03/19 23 2:16 PM TOW PICKER documented as of this encounter Care Teams Business Information Consultant Relationship Specialty [place] [address] [address] [place] [address] PCP - General FAMILY PRACTICE 08/11/22 Jordan Castro MD 6812 [facility] [address] [place] [address] Surgeon ORTHOPAEDIC SURGERY 01/13/20 documented as of this encounter
--- OUTSIDE RECORDS SUMMARY | 2024-11-08 12:11 | XMS_ITS | Encounter Summary ---
Author Organization [facility] Address [address] [place] [address] Care Team Providers Care Master Steam Yacht Name Role Phone Vanessa Ogden MD Primary Care Provider [phone] Jordan Castro MD Unavailable [phone] Soila Neumann MD Primary Care Provider [phone] Encounter Details Date Type Department Care Team (Late st Contact Info) Description 11/13/2020 MenInvestt Message Enc [facility] Medical Group Family & Internal Medicine [facility] [address] [place] [address] Vanessa Ogden [place] [phone] [place] [address] Referral Request Social History Tobacco Use [...] Sex Assigned at Female 06/28/2021 1:39 PM FILTER HELPER Legal Sex Female 3:51 PM FILTER HELPER Gender Identity Female 06/28/2021 1:39 PM FILTER HELPER Sexual Orientation Straight 06/28/2021 1: 39 PM FILTER HELPER COVID-19 Exposure Response Date Recorded In [...] 3:00 PM CDT Appointment [facility] [address] [place] [address] [place] [address] [facility]. [address] [place] [address] 11/20/2024 8:40 AM CDT Hospital Encounter [facility] Interventional [place] [address] [id number] Carolyn Fernando MD Three [facility] Suite [facility] [place] [address] 11/20/2024 8:40 AM CDT - 11/20/2024 9:00 AM CDT Surgery [facility] Interventional [place] [address] [phone] Carolyn Fernando MD Three [facility] [address] [place] [address] BLOCK SACROILIAC JOINT 12/05/2024 1:20 PM CDT Office Visit [facility] Orthopedic Surgery-[place] [address] [place] [address] [place] [address] [place] [address] 01/31/2025 1:20 PM CDT Office Visit [facility] Family & Internal Medicine [facility] [address] [place] [address] [place] [address] [facility]. [address] [place] [address] Scheduled Procedures Name Priority Associated Diagnoses Date/Ti mt BLOCK SACROILIAC JOINT SI joint arthritis 11/20/2024 8:40 AM CDT documented as of this encounter Visit Diagnoses Not on filedocumented in this encounter Additional Health Concerns Infection Onset Date Last Indicated Resolved Time COVID-19 Rule Out 09/08/2021 09/08/2021 09/08/2021 10:37 AM FILTER HELPER documented as of this encounter Care Teams Master Steam Yacht Relationship Specialty Start Date End Date Vanessa Ogden MD PCP - General INTERNAL MEDICINE 08/14/18 08/10/22 [place] [address] [facility] [address] [address] [place] [address] PCP - General FAMILY PRACTICE 08/11/22 Jordan Castro MD 6812 [facility] [address] [facility] 123 [place] [address] Surgeon ORTHOPAEDIC SURGERY 01/13/20 documented as of this encounter
--- OUTSIDE RECORDS SUMMARY | 2024-11-08 12:11 | XMS_ITS | Encounter Summary ---
Author Organization [facility] Address [address] [place] [address] Care Team Providers Care Motel Food Service Supervisor Name Role Phone Jordan Castro MD Unavailable [phone] Soila Neumann MD Primary Care Provider [phone] Encounter Details Date Type Department Care Team (Late st Contact Info) Description 06/22/2023 Luminescent Technologies Message Enc [facility] Medical Group Family & Internal Medicine [address] [address] [place] [phone] [place] [address]. [address] [place] [address] Referral Social History Tobacco Use [...] Sex Assigned at Female 06/28/2021 1:39 PM AGRICULTURE MANAGER Legal Sex Female 3:51 PM AGRICULTURE MANAGER Gender Identity Female 06/28/2021 1:39 PM AGRICULTURE MANAGER Sexual Orientation Straight 06/28/2021 1: 39 PM AGRICULTURE MANAGER Occupation Industry Job Start Date Job End Date RETIRED Not on file Not on file Not on file documented as of this encounter Plan of Treatment Upcoming Encounters Date Type Department Care Team (Latest Contact Info) Description 11/13/2024 3:[address] [facility] [address] [place] [address] [place] [address] [facility]. [address] [place] [address] 11/20/2024 8:40 AM CDT Hospital Encounter [facility] Interventional [place] [address] [id number] Carolyn Fernando MD Three [facility] [address] [place] [address] 11/20/2024 8:40 AM CDT - 11/20/2024 9:00 AM CDT Surgery [facility] Interventional Pain [place] [address] [phone] Carolyn Fernando MD Three [facility] [address] [place] [address] BLOCK SACROILIAC JOINT 12/05/2024 1:20 PM CDT Office Visit [facility] Orthopedic Surgery[place] [address] [place] [address] [place] [address] [place], [place] [address] 01/31/2025 1:20 PM CDT Office Visit [facility] Family & Internal Medicine [facility] [address] [place] [address] [place] [address] [address] [place] [address] Scheduled Procedures Name Priority Associated Diagnoses Date/Ti me BLOCK SACROILIAC JOINT SI joint arthritis 11/20/2024 8:40 AM CDT documented as of this encounter Visit Diagnoses Not on filedocumented in this encounter Additional Health Concerns Assessment Noted Time PHQ-9 Depression Total Score: 2 08/03/19 23 2:16 PM AGRICULTURE MANAGER documented as of this encounter Care Teams Motel Food Service Supervisor Relationship Specialty [place] [address] [address] [place] [address] PCP - General FAMILY PRACTICE 08/11/22 Jordan Castro MD 6812 [facility] [address] [place] [address] Surgeon ORTHOPAEDIC SURGERY 01/13/20 documented as of this encounter
--- OUTSIDE RECORDS SUMMARY | 2024-11-08 12:11 | XMS_ITS | Clinical Summary ---
Author Organization [facility] Address [facility] [place] [address] Care Team Providers Care Privacy Analyst Name Role Phone Jordan Castro MD Unavailable [phone] Soila Neumann MD Primary Care Provider [phone] Allergies Active Allergy Reactions Criticality Noted Date [...] of left elbow 06/06/2022 Seronegative rheumatoid arthritis ([facility]/ CC) 11/06/2020 Urinary incontinence 08/13/2019 Sacroiliitis 07/22/2019 Overview (07/22/2019): Added automatically from request for surgery [id number] Bursitis 07/22/2019 Overview (07/22/2019): Added automatically from request for surgery [id number] Osteoarthritis of right hip, unspecified osteoarthritis type [...] Date Type Department Care Team Description 10/21/2024 appsFreedomhart Message Enc [facility] Family & Internal [address] [address] Soila Neumann MD MRI & Blood work 10/21/2024 Results Follow-Up [facility] & Internal [address] [address] Soila Neumann MD MG/PCCL UDS W CONF 10/17/2024 10:40 AM CDT Office Visit [facility] Internal [address] [address] Soila Neumann MD Shoulder Pain (Pt c/o right shoulder pain. Currently seeing PT, originally had some relief but pain has worsened x 2 weeks. ) 10/17/2024 Travel 10/07/2024 12:52 PM CDT - 10/07/2024 11:59 PM CDT Hospital Encounter [facility] [address] [place] [address] Jose Daniel Reis, DPT Soila Neumann MD Shoulder Pain Discharge Disposition: Home or Self Care (Routine Discharge) 10/07/2024 Travel 10/05/2024 appsFreedomhart Message Enc [facility] Internal [address] [address] Soila Neumann MD RT arm Rotator Cuff tear & PT 10/04/2024 1:54 PM CDT - 10/04/2024 11:59 PM CDT Hospital Encounter [facility] [address] [place] [address] Soila Neumann MD Groennert, Jordan R, DPT Shoulder Pain Discharge Disposition: Home or Self Care (Routine Discharge) 10/04/2024 Travel 10/03/2024 4:51 PM CDT - 10/03/2024 11:59 PM CDT Hospital Encounter [facility] [address] [place] [address] Jose Daniel Reis, DPT Soila Neumann MD Eddy, Sandi L, TSA SCREENER Shoulder Pain Discharge Disposition: Home or Self Care (Routine Discharge) 10/03/2024 Travel 09/26/2024 3:08 PM CDT - 09/26/2024 11:59 PM CDT Hospital Encounter [facility] [address] [place] [address] Soila Neumann MD Eddy, Sandi L, TSA SCREENER Shoulder Pain Discharge Disposition: Home or Self Care (Routine Discharge) 09/26/2024 Travel 09/18/2024 1:00 PM CDT - 09/18/2024 11:59 PM CDT Hospital Encounter [facility] [address] [place] [address] Jose Daniel Reis, DPT Soila Neumann MD Shoulder Pain Discharge Disposition: Home or Self Care (Routine Discharge) 09/18/2024 Travel 09/16/2024 1:42 PM CDT - 09/16/2024 11:59 PM CDT Hospital Encounter [facility] [address] [place] [address] Soila Neumann MD Eddy, Sandi L, TSA SCREENER Shoulder Pain Discharge Disposition: Home or Self Care (Routine Discharge) 09/16/2024 Travel 09/12/2024 2:45 PM CDT - 09/12/2024 11:59 PM CDT Hospital Encounter [facility] [address] [place] [address] Soila Neumann MD Eddy, Sandi L, TSA SCREENER Shoulder Pain Discharge Disposition: Home or Self Care (Routine Discharge) 09/12/2024 Travel 09/09/2024 1:41 PM CDT - 09/09/2024 11:59 PM CDT Hospital Encounter [facility] [id number] [place] [address] Soila Neumann MD Eddy, Sandi L, PTA Shoulder Pain Discharge Disposition: Home or Self Care (Routine Discharge) 09/09/2024 Travel 09/04/2024 12:59 PM BLOCK STACKER - 09/04/2024 11:59 PM BLOCK STACKER Hospital Encounter [facility] [address] [place] [address] Jose Daniel Reis, DPT Soila Neumann MD Shoulder Pain Discharge Disposition: Home or Self Care (Routine Discharge) 09/04/2024 Travel 09/02/2024 12:57 PM BLOCK STACKER - 09/02/2024 11:59 PM BLOCK STACKER Hospital Encounter [facility] [address] [place] [address] Jose Daniel Reis, Soila Betts MD Shoulder Pain Discharge Disposition: Home or Self Care (Routine Discharge) 09/02/2024 Travel 08/30/2024 2:30 PM BLOCK STACKER - 08/30/2024 11:59 PM BLOCK STACKER Hospital Encounter [facility] [address] [place] [address] Soila Neumann MD Groennert, Jordan R, BIANCAT Shoulder Pain Discharge Disposition: Home or Self Care (Routine Discharge) 08/30/2024 Travel 08/26/2024 4:15 PM BLOCK STACKER - 08/26/2024 11:59 PM BLOCK STACKER Hospital Encounter [facility] [address] [place] [address] Jose Daniel Reis, Soila Betts MD Shoulder Pain Discharge Disposition: Home or Self Care (Routine Discharge) 08/26/2024 Travel 08/22/2024 9:00 AM BLOCK STACKER - 08/22/2024 9:20 AM BLOCK STACKER Surgery [facility] Interventional [place] [address] [id number] Carolyn Fernando MD /SI JOINT STEROID WITH C-ARM 08/22/2024 8:17 AM BLOCK STACKER - 08/22/2024 9:35 AM BLOCK STACKER Hospital Encounter [facility] [place] [address] [id number] Carolyn Fernando MD Discharge Disposition: Home or Self Care (Routine Discharge) 08/22/2024 Travel 08/20/2024 10:23 AM BLOCK STACKER - 08/20/2024 11:59 PM BLOCK STACKER Hospital Encounter [facility] [address] [place] [address] Jose Daniel Reis, DPT Soila Neumann MD [...] Sex Assigned at Female 06/28/2021 1:39 PM BLOCK STACKER Legal Sex Female 3:51 PM BLOCK STACKER Gender Identity Female 06/28/2021 1:39 PM BLOCK STACKER Sexual Orientation Straight 06/28/2021 1: 39 PM BLOCK STACKER Occupation Industry Job Start Date Job End [...] Info) Description 11/13/2024 3:00 PM CDT Appointment [facility] [address] [place] [address] [place] [address] [place] [address] 11/20/2024 8:40 AM CDT Hospital Encounter [facility] [place] [address] [id number] Carolyn Fernando MD Three [facility] [address] [place] [address] 11/20/2024 8:40 AM CDT - 11/20/2024 9:00 AM CDT Surgery [facility] [place] [address] [id number] Carolyn Fernando MD Three [facility] [address] [place] [address] BLOCK SACROILIAC JOINT 12/05/2024 1:20 PM CDT Office Visit [facility] Orthopedic Surgery[place] [address] [place] [address] [place] [address] [place] [address] 01/31/2025 1:20 PM CDT Office Visit [facility] Family & Internal Medicine [facility] [id number] [place] [phone] [place] [address] [place] [address] Scheduled Procedures Name Priority Associated [...] Dexa Scan (General) Completed 11/17/2023 PHQ-2 (Physician [place]) Completed 07/11/2024 Meningococcal B Vaccine Aged Out [...] Care Plan Autogenerated Problem No Sarah Becker shell trim operator Procedure Name Priority Date/Time Associated Diagnosis Comments MG/PCCL UDS W CONF Routine 10/17/2024 11 :24 AM CDT Medication management Therapeutic drug monitoring INJECTION FACET/SI JOINT STEROID WITH C-ARM 08/22/2024 9:16 AM BLOCK STACKER SI joint arthritis XR PAIN CLINIC C-ARM Today 08/22/2024 8:25 AM BLOCK STACKER BONE DENSITY/DEXA Routine 11/17/2023 2:0 7 PM [...] CONF (10/17/2024 11:24 AM CDT) RESULT SUMMARY [facility] Comment: Prescribed Prescribed Not Prescribed Consistent Inconsistent Inconsistent Hydrocodone PRESCRIBED DRUG 1 (U) Hydrocodone [facility] FENTANYL SCREEN (U) NEGATIVE <0.5 [...] PM (U) NEGATIVE <50 ng/mL [facility] [place] NORHYDROCODONE PM (U) 1,278(H) <50 ng/mL [facility] [place] NORHYDROCODONE PM MM (U) CONSISTENT [facility] [place] OPIATES COMMENTS [facility] [place] Comment:See Opiates Notes, L DT Notes OXYCODONE PM (U) NEGATIVE <100 ng/mL [facility] CRE[facility] RANDOM (U) 71.1 > or = 20.0 mg/dL [facility] [place] pH PM (U) 5.3 4.5 - 9.0 [facility] OXIDANT NEGATIVE <200 mcg/mL [facility] NOTE [facility] Comment: This drug testing is for medical [...] analytical performance characteristics have been determined by [employer]. It has not been cleared or approved by the FDA. This assay has been validated pursuant to the CLIA regulations and is used for clinical purposes. medMATCH(R) enables providers to identify if drug use is consistent or inconsistent with a corresponding prescribed medication(s) list. Healthcare Providers needing Interpretation assistance, please contact us at [phone] ( ) M-F, 8am to 10pm EST URINE SPECIMEN / Unknown 10/17/2024 11:24 AM CDT 10/18/2024 2:00 AM CDT Narrative Resulting Agency Comment Performing Organization Information: Site ID: Name: [facility] Address: [address] [place] [address] Director: Raffi Hoyt Site ID: [place] Name: [facility] Address: [address] [place] [id number] Director: Reymundo Rivera MD Soila Neumann MD URINE ORDERABLES Final Result Performing Organization Address City/State/[facility] Co de Phone Number [facility] - [facility] [address] [address] [facility] [address] [place] [address] [place] [address] * XR PAIN CLINIC C-ARM (08/22/2024 8:25 AM BLOCK STACKER) Narrative Radiology, Technologist - 08/22/2024 8:25 AM BLOCK STACKER This report does not contain a radiologist's [...] VE NON-REACTI VE 11/07/2019 10:59 AM CDT [facility] 11/06/2019 6:45 PM CDT us Vanessa Ogden MD LABORATORY Final Result [facility] [address] [place] [address], * COLONOSCOPY/EGD (06/21/2019) us Documents Scanned SCANNING Edited Result - Final from Last 3 Months or Most Recently Relevant to Health Maintenance Additional Health Concerns Active Problems Noted Date Diagnosed Date Autogenerated Problem 10/16/[address] [place] [address] [facility] MEDICARE Care Teams Privacy Analyst Relationship Specialty [place] [address] [facility] [address] [place] [address] PCP - General FAMILY PRACTICE 08/11/22 Jordan Castro MD [address] [facility] [address] [facility] [address] [place] [address] Surgeon ORTHOPAEDIC SURGERY 01/13/20
--- OUTSIDE RECORDS SUMMARY | 2024-11-08 12:11 | XMS_ITS | Encounter Summary ---
Author Organization [facility] Address [address] [place] [address] Care Team Providers Care Automated Process Operator Name Role Phone Vanessa Ogden MD Primary Care Provider [phone] Jordan Castro MD Unavailable [phone] Soila Neumann MD Primary Care Provider [phone] Encounter Details Date Type Department Care Team (Late st Contact Info) Description 11/26/2020 [employer] Message Enc [facility] Medical [facility] Family & Internal Medicine [facility] [address] [place] [address] [place] [id number] [place] [address] Follow Up/Update Social History Tobacco Use [...] Sex Assigned at Female 06/28/2021 1:39 PM SUPERVISORY INVESTIGATIVE SPECIALIST Legal Sex Female 3:51 PM SUPERVISORY INVESTIGATIVE SPECIALIST Gender Identity Female 06/28/2021 1:39 PM SUPERVISORY INVESTIGATIVE SPECIALIST Sexual Orientation Straight 06/28/2021 1: 39 PM SUPERVISORY INVESTIGATIVE SPECIALIST COVID-19 Exposure Response Date Recorded In the last month, have you been in contact with someone who was confirmed or suspected to have Coronavirus / COVID-19? No / Unsure 11/20/2020 10:10 AM CDT documented as of this encounter Plan of Treatment Upcoming Encounters Date Type Department Care Team (Latest Contact Info) Description 11/13/2024 3:00 PM CDT Appointment [facility] [address] [place] [address] [place] [address] [address] [place] [address] 11/20/2024 8:40 AM CDT Hospital Encounter [facility] Interventional [place] [address] [id number] Carolyn Fernando MD Three [facility] [address] [place] [address] 11/20/2024 8:40 AM CDT - 11/20/2024 9:00 AM CDT Surgery [facility] Interventional Pain Management [place] [address] [id number] Carolyn Fernando MD Three [facility] [address] [place] [address] BLOCK SACROILIAC JOINT 12/05/2024 1:20 PM CDT Office Visit [facility] Medical Group Orthopedic Surgery-[place] [address] [place], [place] [phone] [place] [address] [address] [place], [place] [address] 01/31/2025 1:20 PM CDT Office Visit [facility] Medical [facility] Family & Internal Medicine [facility] [address] [place] [address] [place] [address] [address] [place] [address] Scheduled Procedures Name Priority Associated Diagnoses Date/Ti me BLOCK SACROILIAC JOINT SI joint arthritis 11/20/2024 8:40 AM CDT documented as of this encounter Visit Diagnoses Not on filedocumented in this encounter Additional Health Concerns Infection Onset Date Last Indicated Resolved Time COVID-19 Rule Out 09/08/2021 09/08/2021 09/08/2021 10:37 AM SUPERVISORY INVESTIGATIVE SPECIALIST documented as of this encounter Care Teams Automated Process Operator Relationship Specialty Start Date End Date Vanessa Ogden MD PCP - General INTERNAL MEDICINE 08/14/18 08/10/22 [place] [address] [address] [place] [address] PCP - General FAMILY PRACTICE 08/11/22 Jordan Castro MD [address] [facility] [address] [facility] [address] [place] [address] Surgeon ORTHOPAEDIC SURGERY 01/13/20 documented as of this encounter
--- NOTE | 2024-11-08 12:30 | ED.EXTPRO ---
HPI - Extremity Problem General Chief complaint: Extremity Problem,Nontraumatic Stated complaint: R heel pain, something popped Time Seen by Provider: 11/08/24 12:02 History of Present Illness HPI Narrative: 74-year-old female with a past medical history including hypertension, rheumatoid arthritis. Patient presents to the emergency room with right heel pain. Patient states that she was walking and heard a pop in her right UE and started having pain just on the plantar surface where she thinks she might have a bone spur. No traumatic injuries, has been able tolerate weight-bearing but states is uncomfortable. States she has had ankle injuries in that side before and sees Dr. Cerda for this. Did not take anything prior to arrival. Patient is on chronic opiates at home for her rheumatoid arthritis pain. No neuropathy or weakness, no inability to ambulate. No other systemic symptoms. No discoloration or cold sensation in the foot. No proximal swelling worsened baseline. Related Data Home Medications ?Medication ?Instructions ?Recorded ?Confirmed ?Last Taken ?Type levothyroxine 125 mcg tablet 125 mcg PO DAILY 06/18/19 06/30/24 01/16/20 05:30 History (Synthroid) omeprazole 20 mg capsule,delayed 20 mg PO DAILY 06/18/19 06/30/24 01/15/20 History release lisinopril 20 mg tablet 20 mg PO DAILY 01/10/20 06/30/24 01/15/20 History cyanocobalamin (vitamin B-12) 100 mcg subcut MONTHLY 04/09/20 06/30/24 Unknown History 1,000 mcg/mL injection solution azelastine 137 mcg (0.1 %) nasal 1 spray intranasal Q12H 01/12/23 06/30/24 Unknown History spray cetirizine 10 mg tablet 10 mg PO DAILY PRN allergy symptoms 01/12/23 06/30/24 Unknown History cholecalciferol (vitamin D3) 10 10 mcg PO DAILY 01/12/23 06/30/24 Unknown History mcg (400 unit) capsule cyclobenzaprine 5 mg tablet 5 mg PO TID PRN muscle pain 01/12/23 06/30/24 Unknown History diclofenac epolamine 1.3 % 1 patch topical .prn 01/12/23 06/30/24 Unknown History transdermal 12 hour patch estradiol 1 mg tablet 1 mg PO DAILY 01/12/23 06/30/24 Unknown History folic acid 1 mg tablet 1 mg PO DAILY 01/12/23 06/30/24 Unknown History gabapentin 400 mg capsule 400 mg PO QID 01/12/23 06/30/24 Unknown History hydrocodone 7.5 mg-acetaminophen 1 tablet PO QHS PRN pain 01/12/23 06/30/24 Unknown History 325 mg tablet magnesium 200 mg tablet 200 mg PO BID 01/12/23 06/30/24 Unknown History ondansetron HCl 8 mg tablet 8 mg PO Q12H 01/12/23 06/30/24 Unknown History methotrexate sodium 5 mg tablet 25 mg PO WEEKLY 05/15/23 06/30/24 Unknown History tolterodine 2 mg tablet 2 mg PO Q12H 04/29/24 06/30/24 Unknown History Allergies Allergy/AdvReac Type Severity Reaction Status Date / Time Sulfa (Sulfonamide Allergy Severe Hives Verified 06/30/24 14:09 Antibiotics) sulfanilamide Allergy Severe Hives Verified 06/30/24 14:09 codeine AdvReac Intermediate Nausea Verified 06/30/24 14:09 tramadol AdvReac Intermediate Hallucinati Verified 06/30/24 14:09 ng Review of Systems Review of Systems: As reviewed above in HPI [facility] Past Medical History Medical History Hallux rigidus of right foot Ankle impingement syndrome, right Degenerative joint disease of ankle Acute pain of left knee Fibromyalgia HTN (hypertension) XENIA (obstructive sleep apnea) Asthma Hypercholesterolemia Obesity Family History Family History Grandparent Family history of kidney disease Family history of heart disease in male family member before age 55 Sibling Family history of migraine headaches Asthma Patient's sister is in good health Father Family history of glaucoma Family history of chronic obstructive pulmonary disease, Onset Age: 87 Mother Hypertension Asthma Family history of heart disease in male family member before age 55 Patient's mother is in good health Family history of arthritis Family history of anemia Family history of chronic obstructive pulmonary disease, Onset Age: 4 Family history of congestive heart failure Other Acute myocardial infarction Cerebrovascular accident Diabetes mellitus Family history of allergic disorder Family history of cardiovascular disease Family history of mental disorder Social History Social History Smoking status: Former smoker Smoking end date: 07/03/69 Alcohol intake: current Alcohol use details: BEER/MIX DRINK ONE DRINK PER MONTH Do You Feel Safe in your Home?: Yes Lack of Transportation: No Lack of Food: Never True Current Housing: I Have Housing Concerned About Future Housing: No Difficulty Paying Gas/Electric Bills: No Difficulty Paying for Meds: No Currently Unemployed: No Education: Decline to Answer Difficulty w/ Childcare or Family Care: No Living arrangements: with family Gender identity (if verbalized by the patient): Female Spiritual care concerns: No Exam Narrative: GENERAL: [Well-appearing, well-nourished, and in no acute distress.] HEAD: [Normocephalic, atraumatic.] EYES: [PERRLA and EOMI.] ENT: Nares clear, no rhinorrhea or epistaxis. Mucous membranes moist. NECK: Supple. CHEST: [Clear to auscultation. No respiratory distress.] HEART: [Regular rate and rhythm]. No murmur heard. [Normal peripheral pulses.] ABDOMEN: [Soft, nondistended], [nontender], [No rigidity or guarding] EXTREMITIES: Normal range of motion. [No edema.] Focal tenderness to palpation over the right heel on the plantar surface near the origin site of the plantar fascia. Plantar and dorsiflexion is full, able to ambulate. 2+ dorsalis pedis pulse. Warm extremities. SKIN: Warm, dry, no rash. NEURO: [No focal deficits]. Alert and oriented [x3.] PSYCH: [Normal mood and affect.] Course Vital Signs Vital signs: Vital Signs Temperature 36.4 C 11/08/24 10:52 Pulse Rate 97 11/08/24 10:52 Respiratory Rate 18 11/08/24 10:52 Blood Pressure 142/57 H 11/08/24 10:52 Pulse Oximetry 99 11/08/24 10:52 Oxygen Delivery Room Air 11/08/24 10:52 Temperature 36.4 C 11/08/24 10:52 Pulse Rate 97 11/08/24 10:52 Respiratory Rate 18 11/08/24 10:52 Blood Pressure 142/57 H 11/08/24 10:52 Pulse Oximetry 99 11/08/24 10:52 Oxygen Delivery Room Air 11/08/24 10:52 MDM - Extremity (Nontraumatic) MDM Narrative Medical decision making narrative: 74-year-old female presenting with right heel pain that was sudden onset while walking. She states she has had right heel injuries and pain before and thinks she might have a calcaneal spur. On examination she has focal tenderness over the origin site of the plantar fascia with symptoms consistent with her plantar fasciitis or calcaneal heel spur pain. She is otherwise well-appearing with warm well-perfused extremity and 2+ pulses. Able to ambulate able to wiggle all the toes. No neurological deficits. X-rays were obtained which do show calcaneal spur with no acute osseous process otherwise. She was given Toradol and Decadron for analgesia intramuscular injection. She will be discharged home at this time with a hard-soled shoe and orthopedics follow-up and referral. Patient given return precautions and safely discharged. Discharge Plan Discharge Clinical Impression: Calcaneal spur of right foot, Plantar fascia syndrome Patient Disposition: Home Condition: Stable Instructions: Antibiotic Form, Plantar Fasciitis (ED), Heel Spur (ED) Additional Instructions: Your x-ray does show calcaneal heel spur which is likely the cause your pain and could be also causing plantar fascia symptoms. We provided you steroids which will take several hours to work in addition to a pain injection. Follow-up with the orthopedic provider, return with any emergent concerns. Patient Language: Swedish Prescriptions: No Action methylprednisolone [Medrol (Reginald)] 4 mg tablets,dose pack See Rx Instructions .ROUTE .COMPLEX Qty: 21 0RF Rx Instructions: orally per package directions doxycycline hyclate 100 mg tablet 100 mg PO BID 7 Days Qty: 14 0RF cetirizine 10 mg tablet 10 mg PO DAILY PRN (Reason: allergy symptoms) ondansetron HCl 8 mg tablet 8 mg PO Q12H gabapentin 400 mg capsule 400 mg PO QID estradiol 1 mg tablet 1 mg PO DAILY Rx Instructions: off 1 week; repeat cycle hydrocodone-acetaminophen 7.5-325 mg tablet 1 tablet PO QHS PRN (Reason: pain) folic acid 1 mg tablet 1 mg PO DAILY azelastine 137 mcg (0.1 %) aerosol,spray 1 spray intranasal Q12H Rx Instructions: administer into each nostril magnesium 200 mg tablet 200 mg PO BID cholecalciferol (vitamin D3) 10 mcg (400 unit) capsule 10 mcg PO DAILY cyclobenzaprine 5 mg tablet 5 mg PO TID PRN (Reason: muscle pain) diclofenac epolamine 1.3 % patch 12 hour 1 patch topical .prn tolterodine 2 mg tablet 2 mg PO Q12H cyanocobalamin (vitamin B-12) 1,000 mcg/mL solution 100 mcg subcut MONTHLY methotrexate sodium 5 mg tablet 25 mg PO WEEKLY Patient Comments: Patient doing 6 every monday lisinopril 20 mg Tablet 20 mg PO DAILY levothyroxine [Synthroid] 125 mcg tablet 125 mcg PO DAILY omeprazole 20 mg capsule,delayed release(DR/EC) 20 mg PO DAILY albuterol sulfate 2.5 mg /3 mL (0.083 %) solution for nebulization 2.5 mg inhalation QID PRN (Reason: shortness of breath or wheezing) Qty: 360 2RF albuterol sulfate 90 mcg/actuation HFA aerosol inhaler See Rx Instructions .ROUTE .COMPLEX Qty: 51 3RF Dose Instruction: USE 1 TO 2 INHALATIONS BY MOUTH INHALED EVERY 4 TO 6 HOURS NEEDED FOR SHORTNESS OF BREATH OR WHEEZING Rx Instructions: USE 1 TO 2 INHALATIONS BY MOUTH INHALED EVERY 4 TO 6 HOURS NEEDED FOR SHORTNESS OF BREATH OR WHEEZING pravastatin 10 mg tablet See Rx Instructions .ROUTE .COMPLEX Qty: 90 2RF Dose Instruction: TAKE 1 TABLET BY MOUTH DAILY Rx Instructions: TAKE 1 TABLET BY MOUTH DAILY Xarelto 20 mg tablet See Rx Instructions .ROUTE .COMPLEX Qty: 90 2RF Dose Instruction: TAKE 1 TABLET BY MOUTH EVERY EVENING (MUST ADMINISTER WITH EVENING MEAL ) Rx Instructions: TAKE 1 TABLET BY MOUTH EVERY EVENING (MUST ADMINISTER WITH EVENING MEAL ) amiodarone 100 mg tablet See Rx Instructions .ROUTE .COMPLEX Qty: 90 2RF Dose Instruction: TAKE 1 TABLET BY MOUTH DAILY Rx Instructions: TAKE 1 TABLET BY MOUTH DAILY amlodipine 10 mg tablet See Rx Instructions .ROUTE .COMPLEX Qty: 90 2RF Dose Instruction: TAKE 1 TABLET BY MOUTH DAILY Rx Instructions: TAKE 1 TABLET BY MOUTH DAILY fluticasone propion-salmeterol [Advair Diskus] 250-50 mcg/dose blister with device 1 inh inhalation BID 90 Days Qty: 180 3RF Rx Instructions: Rinse mouth and spit after each use Follow-up/Referrals: Jordan Castro MD [Physician] - 1 Week (Heel pain) Thien,MD Soila [Primary Care Provider] - Time of Disposition: 12:36
[2024-11-08] MEDS: KETOROLAC 30 MG/ML VIAL (*BKC) IM (12:34)
[2024-11-08] MEDS: dexAMETHasone SOD PHOS INJ 10 MG/ML 1 ML VIAL IM (12:34)
== END 2024-11-08 13:24 | disposition home or self-care (01) ==
PROVIDERS: Emergency Provider Student in an Organized Health Care Education/Training Program; PCP Family Medicine
DX: M77.31 Calcaneal spur, right foot (principal); M72.2 Plantar fascial fibromatosis; I10 Essential (primary) hypertension; M06.9 Rheumatoid arthritis, unspecified; G47.33 Obstructive sleep apnea (adult) (pediatric); J45.909 Unspecified asthma, uncomplicated
CPT/HCPCS: 73630; 96372; 99284; J1100; J1885

== ENCOUNTER 2025-02-14 14:48 | Emergency (ER) | payer MEDICARE, SELFPAY ==
--- NOTE | ~2025-02-14 | XR_ITS ---
The manubrium and the basilar CHEST RADIOGRAPH, PA AND LATERAL CLINICAL HISTORY: chf w/u . COMPARISON: 02/16/2024 TECHNIQUE: PA and lateral views of the chest. FINDINGS The cardiomediastinal silhouette is unremarkable. The lungs are clear. IMPRESSION: No focal infiltrate or effusion. Reviewed, dictated and finalized at location A.
--- NOTE | ~2025-02-14 | US_ITS ---
EXAMINATION: US venous doppler [facility] DATE: 02/14/2025 17:56 INDICATION: Swelling TECHNIQUE: Grayscale ultrasound images without and with compression and Doppler ultrasound images of the bilateral lower extremity veins were obtained. COMPARISON: None. FINDINGS: The visualized portions of right common femoral vein, profunda (deep) femoral vein, femoral vein, pop liteal vein, peroneal veins, posterior tibial veins, and greater saphenous vein outflow are patent. The visualized portions of left common femoral vein, profunda femoral vein, femoral vein, popliteal v ein, peroneal veins, posterior tibial veins, and greater saphenous vein outflow are patent. IMPRESSION: 1. No deep venous thrombosis. Reviewed, dictated and finalized at location A.
--- OUTSIDE RECORDS SUMMARY | 2025-02-14 14:51 | XMS_ITS | Encounter Summary ---
Author Organization [facility] Address [address] [place] [address] Care Team Providers Care Dairy Quality Assurance Officer Name Role Phone Vanessa Ogden MD Primary Care Provider [phone] Jordan Castro MD Unavailable [phone] Soila Neumann MD Primary Care Provider [phone] Akhil Vergara DO Unavailable Encounter Details Date Type Department Care Team (Latest Contact Info) Description 11/13/2021 Storyful Message Enc [facility] [address] [place] [address] Ricky Ramsey, DPM [address] [place] [phone] msg [address] Dr[address] Llanos ([facility]) potable water treatment operator Social History Tobacco Use Types Packs/Day Years [...] Sex Assigned at Female 06/28/2021 1:39 PM WRITER TECHNICAL PUBLICATIONS Legal Sex Female 3:51 PM WRITER TECHNICAL PUBLICATIONS Gender Identity Female 06/28/2021 1:39 PM WRITER TECHNICAL PUBLICATIONS Sexual Orientation Straight 06/28/2021 1: 39 PM WRITER TECHNICAL PUBLICATIONS Occupation Industry Job Start Date Job End [...] Department Care Team (Latest Contact Info) Description 02/21/2025 9:00 AM CDT Hospital Encounter [facility] [place] [address] [id number] Carolyn Fernando MD [facility] [address] [place] [address] 02/21/2025 9:00 AM CDT - 02/21/2025 9:20 AM CDT Surgery [facility] [place]ventional [place] [address] [id number] Carolyn Fernando MD [facility] [address] [place] [address] BLOCK SACROILIAC JOINT 05/05/2025 1:00 PM WRITER TECHNICAL PUBLICATIONS Office Visit [facility] Family & Internal Medicine [address] [address] Soila Neumann MD [address] [place] [address] 08/15/2025 2:20 PM WRITER TECHNICAL PUBLICATIONS Office Visit [facility] Family [facility] Internal Medicine - [place] [address] [place] [address] [place] [address] [address] [place] [address] Scheduled Procedures Name Priority Associated Diagnoses Date/Ti me BLOCK SACROILIAC JOINT SI joint arthritis 02/21/2025 9:00 AM CDT documented as of this encounter Visit Diagnoses Not on filedocumented in this encounter Additional Health Concerns Assessment Noted Time PHQ-9 Depression Total Score: 3 09/09/19 22 9:29 AM WRITER TECHNICAL PUBLICATIONS documented as of this encounter Care Teams Dairy Quality Assurance Officer Relationship Specialty Start Date End Date Vanessa Ogden MD PCP - General INTERNAL MEDICINE 08/14/18 08/10/22 [place] [address] [place] [address] PCP - General FAMILY PRACTICE 08/11/22 Jordan Castro MD [address] [facility] [address] [place] [address] Surgeon ORTHOPAEDIC SURGERY 01/13/20 Akhil Vergara DO [address] [place] [address] INTERNAL MEDICINE 01/02/25 documented as of this encounter
--- OUTSIDE RECORDS SUMMARY | 2025-02-14 14:51 | XMS_ITS | Encounter Summary ---
Author Organization [facility] Address [address] [place] [address] Care Team Providers Care Search Engine Optimization Strategist Name Role Phone Vanessa Ogden MD Primary Care Provider [phone] Jordan Castro MD Unavailable [phone] Soila Neumann MD Primary Care Provider [phone] Akhil Vergara DO Unavailable Encounter Details Date Type Department Care Team (Late st Contact Info) Description 08/30/2021 QuantaLife Message Enc [facility] Family & Internal Medicine [facility] [address] [place] [address] [place] [id number] [place] [address] Refill request: Hydrocodone 7.5/325 Social History [...] Sex Assigned at Female 06/28/2021 1:39 PM ELECTRIC NEEDLE SPECIALIST Legal Sex Female 3:51 PM ELECTRIC NEEDLE SPECIALIST Gender Identity Female 06/28/2021 1:39 PM ELECTRIC NEEDLE SPECIALIST Sexual Orientation Straight 06/28/2021 1: 39 PM ELECTRIC NEEDLE SPECIALIST Occupation Industry Job Start Date Job End Date RETIRED Not on file Not on file Not on file COVID-19 Exposure Response Date Recorded In the last 10 days, have yo u been in contact with someone who was confirmed or suspected to have Coronavirus/COVID-19? No / Unsure 08/13/2021 11:10 AM ELECTRIC NEEDLE SPECIALIST documented as of this encounter Progress Notes * Gilma Barreto RN - 08/30/2021 2:46 PM CST Please advise TRIC NEEDLE SPECIALIST documented in this encounter Plan of Treatment Upcoming Encounters Date Type Department Care Team (Latest Contact Info) Description 02/21/2025 9:00 AM CDT Hospital Encounter [facility] Interventional [place] [address] [id number] Carolyn Fernando MD [address] [address] 02/21/2025 9:00 AM CDT - 02/21/2025 9:20 AM CDT Surgery [facility] [place] [address] [id number] Carolyn Fernando MD [address] [address] BLOCK SACROILIAC JOINT 05/05/2025 1:00 PM ELECTRIC NEEDLE SPECIALIST Office Visit [facility] Family & Internal Medicine [address] [address] [place] [address] [place] [address] 08/15/2025 2:20 PM ELECTRIC NEEDLE SPECIALIST Office Visit [facility] Family & Internal Medicine - [place] [address] [place] [phone] [place] [address] [place] [address] Scheduled Procedures Name Priority Associated Diagnoses Date/Ti me BLOCK SACROILIAC JOINT SI joint arthritis 02/21/2025 9:00 AM CDT documented as of this encounter Visit Diagnoses Not on filedocumented in this encounter Additional Health Concerns Infection Onset Date Last Indicated Resolved Time COVID-19 Rule Out 09/08/2021 09/08/2021 09/08/2021 10:37 AM ELECTRIC NEEDLE SPECIALIST documented as of this encounter Care Teams Search Engine Optimization Strategist Relationship Specialty Start Date End Date Vanessa Ogden MD PCP - General INTERNAL MEDICINE 08/14/18 08/10/22 [place] [address] [address] [place] [address] PCP - General FAMILY PRACTICE 08/11/22 Jordan Castro MD [address] [place] [address] [address] [place] [address] Surgeon ORTHOPAEDIC SURGERY 01/13/20 Akhil Vergara DO [address] [place] [address] INTERNAL MEDICINE 01/02/25 documented as of this encounter
--- OUTSIDE RECORDS SUMMARY | 2025-02-14 14:51 | XMS_ITS | Encounter Summary ---
Author Organization [facility] Address [address] [place] [address] Care Team Providers Care Retail Event Assistant Name Role Phone Vanessa Ogden MD Primary Care Provider [phone] Jordan Castro MD Unavailable [phone] Soila Neumann MD Primary Care Provider [phone] Akhil Vergara DO Unavailable Encounter Details Date Type Department Care Team (Late st Contact Info) Description 10/21/2019 MyChart Message Enc [facility] Family & Internal Medicine [facility] [id number] [place] [phone] [place] Ogden [place] [id number] [place] [address] RE: Follow Up/Update Social History Tobacco Use Types Packs/Day Years Used Date Smoking Tobacco: Never Smokeless Tobacco: Never Alcohol Use Standard Drinks/Week Comments Yes 0 (1 standard drink = 0.6 oz pur e alcohol) Rare use PHQ-2 Answer Date Recorded PHQ-2 Score 0 09/28/2018 Comments No Sex and Gender Information Value Date Recorded Sex Assigned at Female 06/28/2021 1:39 PM RADIO ADJUSTER Legal Sex Female 3:51 PM RADIO ADJUSTER Gender Identity Female 06/28/2021 1:39 PM RADIO ADJUSTER Sexual Orientation Straight 06/28/2021 1: 39 PM RADIO ADJUSTER documented as of this encounter Plan of Treatment Upcoming Encounters Date Type Department Care Team (Latest Contact Info) Description 02/21/2025 9:00 AM CDT Hospital Encounter [facility] [place] [address] [id number] Carolyn Fernando MD [address] [facility] [address] [place] [address] 02/21/2025 9:00 AM CDT - 02/21/2025 9:[address] [facility] Pain [place] [address] [id number] Carolyn Fernando MD [address] [facility] [address] [place] [address] BLOCK SACROILIAC JOINT 05/05/2025 1:00 PM RADIO ADJUSTER Office Visit [facility] Family & Internal Medicine [address] [phone] [place] [address] [facility] [place] [phone] 08/15/2025 2:20 PM RADIO ADJUSTER Office Visit [facility] Family & Internal [address] [phone] [place] [address] [place] [address] Scheduled Procedures Name Priority Associated Diagnoses Date/Ti me BLOCK SACROILIAC JOINT SI joint arthritis 02/21/2025 9:00 AM CDT documented as of this encounter Visit Diagnoses Not on filedocumented in this encounter Additional Health Concerns Infection Onset Date Last Indicated Resolved Time COVID-19 Rule Out 09/08/2021 09/08/2021 09/08/2021 10:37 AM RADIO ADJUSTER documented as of this encounter Care Teams Retail Event Assistant Relationship Specialty Start Date End Date Vanessa Ogden MD PCP - General INTERNAL MEDICINE 08/14/18 08/10/22 [place] [address] [facility] [place] [address] PCP - General FAMILY PRACTICE 08/11/22 Jordan Castro MD [address] [place] [address] Surgeon ORTHOPAEDIC SURGERY 01/13/20 Akhil Vergara DO [address] [place], [place] [id number] INTERNAL MEDICINE 01/02/25 documented as of this encounter
--- OUTSIDE RECORDS SUMMARY | 2025-02-14 14:51 | XMS_ITS | Encounter Summary ---
Author Organization [facility] Address [address] [place] [address] Care Team Providers Care National Account Executive Name Role Phone Vanessa Ogden MD Primary Care Provider [phone] Jordan Castro MD Unavailable [phone] Soila Neumann MD Primary Care Provider Akhil Vergara DO Unavailable Encounter Details Date Type Department Care Team (Late st Contact Info) Description 05/02/2019 [employer] Message Enc [facility] Medical Group Family & Internal Medicine [facility] [address] [place] [address] [place] Ogden [place] [id number] [place] [address] RE: Question Social History Tobacco Use Types Packs/Day Years Used Date Smoking Tobacco: Never Smokeless Tobacco: Never Alcohol Use Standard Drinks/Week Comments Yes 0 (1 standard drink = 0.6 oz pur e alcohol) Rare use PHQ-2 Answer Date Recorded PHQ-2 Score 0 09/28/2018 Comments No Sex and Gender Information Value Date Recorded Sex Assigned at Female 06/28/2021 1:39 PM ELECTRIC WHEELCHAIR REPAIRER Legal Sex Female 3:51 PM ELECTRIC WHEELCHAIR REPAIRER Gender Identity Female 06/28/2021 1:39 PM ELECTRIC WHEELCHAIR REPAIRER Sexual Orientation Straight 06/28/2021 1: 39 PM ELECTRIC WHEELCHAIR REPAIRER documented as of this encounter Plan of Treatment Upcoming Encounters Date Type Department Care Team (Latest Contact Info) Description 02/21/2025 9:00 AM CDT Hospital Encounter [facility] [place] [address] [id number] Carolyn Fernando MD Three [facility] [address] [place] [address] 02/21/2025 9:00 AM CDT - 02/21/2025 9:20 AM CDT Surgery [facility] [place] [address] [id number] Carolyn Fernando MD Three [facility] [address] [place] [address] BLOCK SACROILIAC JOINT 05/05/2025 1:00 PM ELECTRIC WHEELCHAIR REPAIRER Office Visit [facility] Family & Internal Medicine [address] [phone] [place] [address] [place] [address] 08/15/2025 2:20 PM ELECTRIC WHEELCHAIR REPAIRER Office Visit [facility] Family & Internal [address] [phone] [place] [address] [place] [address] Scheduled Procedures Name Priority Associated Diagnoses Date/Ti me BLOCK SACROILIAC JOINT SI joint arthritis 02/21/2025 9:00 AM CDT documented as of this encounter Visit Diagnoses Not on filedocumented in this encounter Additional Health Concerns Infection Onset Date Last Indicated Resolved Time COVID-19 Rule Out 09/08/2021 09/08/2021 09/08/2021 10:37 AM ELECTRIC WHEELCHAIR REPAIRER documented as of this encounter Care Teams National Account Executive Relationship Specialty Start Date End Date Vanessa Ogden MD PCP - General INTERNAL MEDICINE 08/14/18 08/10/22 [place] [address] [facility] [address] [place], [place] [phone] PCP - General FAMILY PRACTICE 08/11/22 Jordan Castro MD [address] [place] [address] Surgeon ORTHOPAEDIC SURGERY 01/13/20 Akhil Vergara DO [address] [place], [place] [phone] INTERNAL MEDICINE 01/02/25 documented as of this encounter
--- OUTSIDE RECORDS SUMMARY | 2025-02-14 14:51 | XMS_ITS | Encounter Summary ---
Author Organization [facility] Address [address] [place] [address] Care Team Providers Care Etcher Hand Name Role Phone Vanessa Ogden MD Primary Care Provider [phone] Jordan Castro MD Unavailable [phone] Soila Neumann MD Primary Care Provider [phone] Akhil Vergara DO Unavailable Encounter Details Date Type Department Care Team (Late st Contact Info) Description 09/04/2021 Tap[employer] Message Enc [facility] Medical Group Family & Internal Medicine [facility] [address] [place] [address] [place] Ogden [place] [id number] [place] [address] [place] 7.5 refill Social History Tobacco Use Types [...] Sex Assigned at Female 06/28/2021 1:39 PM RACK WASHER Legal Sex Female 3:51 PM RACK WASHER Gender Identity Female 06/28/2021 1:39 PM RACK WASHER Sexual Orientation Straight 06/28/2021 1: 39 PM RACK WASHER Occupation Industry Job Start Date Job End Date RETIRED Not on file Not on file Not on file COVID-19 Exposure Response Date Recorded In the last 10 days, have yo u been in contact with someone who was confirmed or suspected to have Coronavirus/COVID-19? No / Unsure 09/07/2021 11:57 AM RACK WASHER documented as of this encounter Progress Notes * Tatyana Torres MA - 09/06/2021 3:02 PM CST Appointment scheduled. WASHER * Vanessa Ogden MD - 09/06/2021 1:28 PM CST On 06/30/21 was given a script for Feb to be filled 08/25/21 or 5 mg bid # 60 (since we were going into warmer weather.) I am not filling controlled substances for call ins. If pharmacy cannot find your script we can perhaps do a virtual phone visit WASHER * Tatyana Torres MA - 09/06/2021 1:19 PM CST Sent to Dr. Mendez for approval. WASHER documented in this encounter Plan of Treatment Upcoming Encounters Date Type Department Care Team (Latest Contact Info) Description 02/21/2025 9:00 AM CDT Hospital Encounter [facility] [place] [address] [id number] Carloyn Fernando MD Three [facility] Suite [facility] [place] [address] 02/21/2025 9:00 AM CDT - 02/21/2025 9:20 AM CDT Surgery [facility] [place] [address] [phone] Carolyn Fernando MD Three [facility] [address] [place] [address] BLOCK SACROILIAC JOINT 05/05/2025 1:00 PM RACK WASHER Office Visit [facility] Family & Internal [address] [phone] [place] [address] [address] [place] [address] 08/15/2025 2:20 PM RACK WASHER Office Visit [facility] Family & Internal [facility] [address] [place] [phone] [place] [address] [address] [place] [address] Scheduled Procedures Name Priority Associated Diagnoses Date/Ti me BLOCK SACROILIAC JOINT SI joint arthritis 02/21/2025 9:00 AM CDT documented as of this encounter Visit Diagnoses Diagnosis Chronic pain syndrome SI joint arthritis Sacroiliitis, not elsewhere classified documented in this encounter Additional Health Concerns Infection Onset Date Last Indicated Resolved Time COVID-19 Rule Out 09/08/2021 09/08/2021 09/08/2021 10:37 AM RACK WASHER documented as of this encounter Care Teams Etcher Hand Relationship Specialty Start Date End Date Vanessa Ogden MD PCP - General INTERNAL MEDICINE 08/14/18 08/10/22 [place] [address] [address] [place] [address] PCP - General FAMILY PRACTICE 08/11/22 Jordan Castro MD [address] [facility] [address] [place], [place] [id number] Surgeon ORTHOPAEDIC SURGERY 01/13/20 Akhil Vergara DO [address] [place] [address] INTERNAL MEDICINE 01/02/25 documented as of this encounter
--- OUTSIDE RECORDS SUMMARY | 2025-02-14 14:51 | XMS_ITS | Encounter Summary ---
Author Organization [facility] Address [address] [place] [address] Care Team Providers Care Aged Or Disabled Carer Name Role Phone Vanessa Ogden MD Primary Care Provider [phone] Jordan Castro MD Unavailable [phone] Soila Neumann MD Primary Care Provider [phone] Akhil Vergara DO Unavailable Encounter Details Date Type Department Care Team (Late st Contact Info) Description 10/30/2021 [employer] Message Enc [facility] Medical Group Family & Internal Medicine [facility] [address] [place] [address] [place] Ogden [place] [phone] [place] [address] Medical Cannabis renewal- Social History Tobacco [...] Sex Assigned at Female 06/28/2021 1:39 PM FINAL ARMATURE TESTER Legal Sex Female 3:51 PM FINAL ARMATURE TESTER Gender Identity Female 06/28/2021 1:39 PM FINAL ARMATURE TESTER Sexual Orientation Straight 06/28/2021 1: 39 PM FINAL ARMATURE TESTER Occupation Industry Job Start Date Job [...] Description 02/21/2025 9:00 AM CDT Hospital Encounter [facility] [place] [address] [phone] Carolyn Fernando MD [facility] [address] [place] [address] 02/21/2025 9:00 AM CDT - 02/21/2025 9:20 AM CDT Surgery [facility] [place] [address] [id number] Carolyn Fernando MD [facility] [address] [place] [address] BLOCK SACROILIAC JOINT 05/05/2025 1:00 PM FINAL ARMATURE TESTER Office Visit [facility] Family & Internal Medicine [address] [phone] Soila Neumann MD [address] [place] [address] 08/15/2025 2:20 PM FINAL ARMATURE TESTER Office Visit [facility] Family & Internal Medicine [address] [phone] [place] [address] [facility] [address] [place] [address] Scheduled Procedures Name Priority Associated Diagnoses Date/Ti me BLOCK SACROILIAC JOINT SI joint arthritis 02/21/2025 9:00 AM CDT documented as of this encounter Visit Diagnoses Not on filedocumented in this encounter Additional Health Concerns Assessment Noted Time PHQ-9 Depression Total Score: 3 09/09/19 22 9:29 AM FINAL ARMATURE TESTER documented as of this encounter Care Teams Aged Or Disabled Carer Relationship Specialty Start Date End Date Vanessa Ogden MD PCP - General INTERNAL MEDICINE 08/14/18 08/10/22 [place] [address] [facility] [address] [place] [address] PCP - General FAMILY PRACTICE 08/11/22 Jordan Castro MD [address] [facility] [address] [place] [address] Surgeon ORTHOPAEDIC SURGERY 01/13/20 Akhil Vergara DO [address] [place] [address] INTERNAL MEDICINE 01/02/25 documented as of this encounter
--- OUTSIDE RECORDS SUMMARY | 2025-02-14 14:51 | XMS_ITS | Encounter Summary ---
Author Organization [facility] Address [address] [place] [address] Care Team Providers Care Aix Administrator Name Role Phone Vanessa Ogden MD Primary Care Provider [phone] Jordan Castro MD Unavailable [phone] Soila Neumann MD Primary Care Provider [phone] Akhil Vergara DO Unavailable Encounter Details Date Type Department Care Team (Late st Contact Info) Description 08/30/2021 [employer] Message Enc [facility] Medical Group Family & Internal Medicine [facility] [phone] [place] [phone] [place] Ogden [place] [phone] [place] [address] Addendum to email request 08/30/21 Social [...] Sex Assigned at Female 06/28/2021 1:39 PM CHIEF OF PEDIATRIC UROLOGY Legal Sex Female 3:51 PM CHIEF OF PEDIATRIC UROLOGY Gender Identity Female 06/28/2021 1:39 PM CHIEF OF PEDIATRIC UROLOGY Sexual Orientation Straight 06/28/2021 1: 39 PM CHIEF OF PEDIATRIC UROLOGY Occupation Industry Job Start Date Job End Date RETIRED Not on file Not on file Not on file COVID-19 Exposure Response Date Recorded In the last 10 days, have yo u been in contact with someone who was confirmed or suspected to have Coronavirus/COVID-19? No / Unsure 08/13/2021 11:10 AM CHIEF OF PEDIATRIC UROLOGY documented as of this encounter Plan of Treatment Upcoming Encounters Date Type Department Care Team (Latest Contact Info) Description 02/21/2025 9:00 AM CDT Hospital Encounter [facility] [place] [address] [phone] Carolyn Fernando MD [facility] [address] [place] [address] 02/21/2025 9:00 AM CDT - 02/21/2025 9:20 AM CDT Surgery [facility] Interventional [place] [address] [phone] Carolyn Fernando MD [facility] [address] [place] [address] BLOCK SACROILIAC JOINT 05/05/2025 1:00 PM CHIEF OF PEDIATRIC UROLOGY Office Visit [facility] Family & Internal Medicine [address] [phone] Soila Neumann MD [address] [place] [address] 08/15/2025 2:20 PM CHIEF OF PEDIATRIC UROLOGY Office Visit [facility] Family & Internal Medicine - [place] [address] [place] [phone] [place] [address] [facility] [address]. [address] [place] [address] Scheduled Procedures Name Priority Associated Diagnoses Date/Ti me BLOCK SACROILIAC JOINT SI joint arthritis 02/21/2025 9:00 AM CDT documented as of this encounter Visit Diagnoses Not on filedocumented in this encounter Additional Health Concerns Infection Onset Date Last Indicated Resolved Time COVID-19 Rule Out 09/08/2021 09/08/2021 09/08/2021 10:37 AM CHIEF OF PEDIATRIC UROLOGY documented as of this encounter Care Teams Aix Administrator Relationship Specialty Start Date End Date Vanessa Ogden MD PCP - General INTERNAL MEDICINE 08/14/18 08/10/22 [place] [address] [facility] [address] [place] [address] PCP - General FAMILY PRACTICE 08/11/22 Jordan Castro MD [address] [facility] [address] [place] [address] Surgeon ORTHOPAEDIC SURGERY 01/13/20 Akhil Vergara DO [address] [place] [address] INTERNAL MEDICINE 01/02/25 documented as of this encounter
--- OUTSIDE RECORDS SUMMARY | 2025-02-14 14:51 | XMS_ITS | Encounter Summary ---
Author Organization [facility] Address [address] [place] [address] Care Team Providers Care Medical Assistant Cardiology Name Role Phone Vanessa Ogden MD Primary Care Provider [phone] Jordan Castro MD Unavailable [phone] Soila Neumann MD Primary Care Provider [phone] Akhil Vergara DO Unavailable Encounter Details Date Type Department Care Team (Late st Contact Info) Description 11/04/2021 [employer] Message Enc [facility] Medical Group Family & Internal Medicine [facility] [address] [place] [address] [place] Ogden [place] [phone] [place] [address] prior email to you Social History [...] Sex Assigned at Female 06/28/2021 1:39 PM FORM SETTER STEEL FORMS Legal Sex Female 3:51 PM FORM SETTER STEEL FORMS Gender Identity Female 06/28/2021 1:39 PM FORM SETTER STEEL FORMS Sexual Orientation Straight 06/28/2021 1: 39 PM FORM SETTER STEEL FORMS Occupation Industry Job Start Date Job End Date RETIRED Not on file Not on file Not on file documented as of this encounter Plan of Treatment Upcoming Encounters Date Type Department Care Team (Latest Contact Info) Description 02/21/2025 9:00 AM CDT Hospital Encounter [facility] [place] [address] [phone] Carolyn Fernando MD Three [facility] [address] [place] [address] 02/21/2025 9:00 AM CDT - 02/21/2025 9:20 AM CDT Surgery [facility] Interventional [place] [address] [phone] Carolyn Fernando MD Three [facility] [address] [place] [address] BLOCK SACROILIAC JOINT 05/05/2025 1:00 PM FORM SETTER STEEL FORMS Office Visit [facility] Family & Internal Medicine [address] [phone] [place] [address] [place] [phone] 08/15/2025 2:20 PM FORM SETTER STEEL FORMS Office Visit [facility] Family & Internal Medicine [address] [phone] [place] [address] [place] [address] [phone] Scheduled Procedures Name Priority Associated Diagnoses Date/Ti me BLOCK SACROILIAC JOINT SI joint arthritis 02/21/2025 9:00 AM CDT documented as of this encounter Visit Diagnoses Not on filedocumented in this encounter Additional Health Concerns Assessment Noted Time PHQ-9 Depression Total Score: 3 09/09/19 22 9:29 AM FORM SETTER STEEL FORMS documented as of this encounter Care Teams Medical Assistant Cardiology Relationship Specialty Start Date End Date Vanessa Ogden MD PCP - General INTERNAL MEDICINE 08/14/18 08/10/22 [place] [address] [facility] [place] [address] PCP - General FAMILY PRACTICE 08/11/22 Jordan Castro MD [address] [place] [address] Surgeon ORTHOPAEDIC SURGERY 01/13/20 Akhil Vergara DO [address] [place] [address] INTERNAL MEDICINE 01/02/25 documented as of this encounter
--- OUTSIDE RECORDS SUMMARY | 2025-02-14 14:51 | XMS_ITS | Clinical Summary ---
Author Organization [facility] [employer] Address [address] [place] [address] Care Team Providers Care Business Planning Manager Name Role Phone Soila Neumann MD Primary Care Provider [phone] [facility] [employer],non-owned Affiliates and Associated Physician Practices is amultiple site organization consisting of ambulatory clinics and hospital sitesin [place], [place], [place] and [place]. This disclosure is being madepursuant to the Care Everywhere program and may not contain all information available regarding this patient. Last updated 18.[facility] [employer] Allergies Active Allergy Reactions Criticality Noted Date [...] patient. azelastine (ASTELIN) 0.1 % nasal spray [place] 1 (one) spray into each nostril once daily as needed 02/18/20 20 Active cetirizine (ZYRTEC) 10 MG tablet Take 1 (one) tablet by mouth once daily Active estradiol (ESTRACE) 1 MG tablet Take 1 (one) tablet by mouth once daily Active gabapentin (NEURONTIN) 400 MG capsule Take 1 (one) capsule by mouth 5 times daily Takes 0900, 1600, 2100, 0200 (2 at bedtime) 02/18/20 20 Active HYDROcodone-mark taminophen (NORCO) 7.5-325 MG tablet Take 1 (one) tablet by mouth every 8 hours as needed for Pain 06/29/20 20 Active levothyroxine (SYNTHROID) 125 MCG tablet Take 1 (one) tablet by mouth daily before breakfast 02/18/20 20 Active lisinopril (PRINIVIL; ZESTRIL) 20 MG tablet Take 1 (one) tablet by mouth once daily 02/18/20 20 Active Magnesium 400 MG Take 1 tablet by mouth once daily Active omeprazole (PRILOSEC) 20 MG capsule Take 1 (one) capsule by mouth 2 times daily 02/18/20 20 Active ondansetron (ZOFRAN) 8 MG tablet Take 1 (one) tablet by mouth every 8 hours as needed 04/12/20 20 Active SYRINGE-NEEDLE, DISP, 3 ML 25G X 1 3 ML MISC every 7 days 01/27/20 20 Active cyanocobalamin (VITAMIN B-12) injection Inject 1,000 (one thousand) mcg subcutaneously every 30 days 09/09/19 21 Active insulin syringe-needle (BD ULTRAFINE) 29G X 1/2 1 ML syringe Use 1 syringe to inject methotrexate subcutaneously every 7 days. (100 syringes/box). 100 Each 11/07/19 21 Active diclofenac (FLECTOR) 1.3 % patch Apply 1 (one) patch to skin once daily as needed 05/11/20 21 Active pravastatin (Pravachol) 10 MG tablet Take 1 (one) tablet by mouth once daily 01/16/20 23 Active amiodarone (Pacerone) 100 MG tablet Take 1 (one) tablet by mouth 1 Before Breakfast, 2 Before Dinner 04/21/20 23 Active amLODIPine (Norvasc) 10 MG tablet Take 1 (one) tablet by mouth once daily 06/20/20 23 Active naloxone HCl (Narcan) 4 MG/0.1ML nasal spray [place] 1 (one) spray into the nose as needed For opioid reversal. May repeat every 2-3 minutes in alternating nostrils until medical assistance is available. 07/31/19 24 Active albuterol (Proventil;Vent santosh) (2.5 MG/3ML) 0.083% nebulizer solution Inhale 2.5 (two and one-half) mg by mouth 4 times daily as needed for Shortness of Breath or Wheezing 06/23/20 23 Active Xarelto 20 MG tablet Take 1 (one) tablet by mouth daily with dinner 09/04/19 24 Active melatonin 10 MG capsule Take 1 (one) capsule by mouth at bedtime Active tolterodine (Detrol) 2 MG tablet Take 1 (one) tablet by mouth 2 times daily 12/14/19 24 Active azelaic acid (Finacea) 15 % gelIndications: Rosacea Apply to affected area once daily APPLY THIN LAYER TOPICALLY TO FACE DAILY Reasons: Rosacea 04/03/20 24 Active cyclobenzaprine (Flexeril) 5 MG tabletIndicatio ns:Low back pain, unspecified back pain laterality, unspecified chronicity, unspecified whether sciatica present,Other chronic pain Take 1 (one) tablet by mouth 2 times daily as needed 60 tablet 3 06/14/20 24 Active diclofenac sodium (Voltaren) 1 % gel Apply 2 (two) g to affected area 4 times daily as needed 07/17/19 25 Active fluticasone-claribel meterol (Advair/Wixela) 250-50 MCG/ACT inhaler Inhale 1 (one) puff by mouth 2 times daily Active acetaminophen CR (Tylenol Arthritis Pain) 650 MG tablet Take 1 (one) tablet by mouth every 8 hours as needed for Pain Active folic acid (Folvite) 1 MG tabletIndicatio ns:High risk medication use TAKE 1 TABLET BY MOUTH ONCE DAILY 90 tablet 3 10/31/19 25 Active methotrexate 2.5 MG tabletIndicatio ns:Seronegative rheumatoid arthritis (HCC) TAKE 4 TABLETS BY MOUTH EVERY 7 DAYS 48 tablet 11/05/19 25 Active predniSONE (Deltasone) 10 MG tablet Take 1 (one) tablet by mouth once daily as needed 30 tablet 1 12/04/19 25 Active Golimumab (SIMPONI ARIA IV) 2 mg/kg by Intravenous route as directed Loading doses every 4 weeks x 2 doses, then every 8 weeks thereafter Active Active Problems Problem Noted Date Diagnosed Date Seronegative rheumatoid arthritis 11/06/2020 Seropositive rheumatoid arthritis 09/10/2020 Encounters Date Type Department Care Team Description 01/17/2025 12:46 PM CDT - 01/17/2025 11:59 PM CDT Hospital Encounter [facility] - Rheumatology [address] [place] [address] Kami Llanos MD Rheumatology Discharge Disposition: Home or Self Care 12/20/2024 9:40 AM CDT - 12/20/2024 11:59 PM CDT Hospital Encounter [facility] - Rheumatology [address] [place] [address] Kami Llanos MD Rheumatology Discharge Disposition: Home or Self Care 12/04/2024 Orders Only [facility] - Rheumatology [address], [address] [place] [address] Kami Llanos MD 12/04/2024 Travel 11/30/2024 Results Follow-Up [address] [address] Kami Llanos MD 11/30/2024 Results Follow-Up [address] [address] Kami Llanos MD 11/29/2024 2:00 PM CDT Office Visit [address] [address] Kami Llanos MD Dysuria (Primary Dx); Seronegative rheumatoid arthritis (HCC) 11/29/[address] [address] Kami Llanos MD Medication Prior Auth Request 11/22/2024 11:43 AM CDT - 11/22/2024 11:59 PM CDT Hospital Encounter [address] [address] Kami Llanos MD Rheumatology Discharge Disposition: Home or Self Care from Last 3 Months Immunizations Immunization Administration [...] Date Recorded Patient Health Questionnaire-2 Score 0 11/29/2024 Comments No Sex and Gender Information Value Date Recorded Sex Assigned at Female 08/31/2020 11:23 AM SPIRITUAL MINISTER Legal Sex Female 6:25 PM SPIRITUAL MINISTER Gender Identity Female 08/31/2020 11:23 AM SPIRITUAL MINISTER Sexual Orientation Straight 08/31/2020 11 :23 AM SPIRITUAL MINISTER Last Filed Vital Signs Vital Sign Reading Time Taken Comments Blood Pressure 138/54 01/17/2025 1:15 PM CDT Pulse 84 01/17/2025 1:15 PM CDT Temperature 36.2 C (97.2 F) 01/17/2025 1:15 PM CDT Respiratory Rate 18 12/06/2022 2:21 PM CDT Oxygen Saturation 97% 11/29/2024 1:49 PM CDT Inhaled Oxygen Concentration - - Weight 107.5 kg (237 lb) 01/17/2025 1:15 PM CDT Height 165.1 cm (5' 5) 06/14/2024 11:51 AM SPIRITUAL MINISTER Body Mass Index 39.44 06/14/2024 11:51 AM SPIRITUAL MINISTER Plan of Treatment Upcoming Encounters Date Type Department Care Team (Late st Contact Info) Description 03/14/2025 1:00 PM CDT Hospital Encounter [facility] - Rheumatology [address] [place] [address] 05/09/2025 1:00 PM SPIRITUAL MINISTER Appointment [facility] - Rheumatology [address] [place] [address] 05/09/2025 1:20 PM SPIRITUAL MINISTER Office Visit [facility] - Rheumatology [address] [place] [address] Kami Llanos MD [address] [place] [phone] Health Maintenance Due Date Last Done Comments COLOGUARD (AGES 45-75) - COLON CA SCREENING 1950 [address] COLONOGRAPHY - COLON CA SCREENING 1950 FIT - COLON CA SCREENING 1950 FLEX SIG - COLON CA SCREENING 1950 MEDICARE AWV 12 MONTHS 1950 ZOSTER VACCINE (1 of 2) 2001 MAMMOGRAM 05/19/2023 05/19/2021, 03/12/2020 COVID-19 VACCINE (2023- season) 2024 04/14/2022, 03/23/2021, 09/11/2020, Additional history exists INFLUENZA VACCINE (#1) 2025 4, 03/16/2020, 03/16/2020, Additional history exists Respiratory Syncytial Virus (RSV) Vaccine Pt: or over 60 yrs (1 - 1-dose 75+ series) 2026 SCREENING FOR DIABETES 11/30/2027 5, 11/13/2024, 08/05/2024, Additional history exists DTAP/TDAP/TD VACCINES (3 - Td or Tdap) 01/02/2033 01/02/2023, 05/17/2017 COLON MONITORING 06/17/2034 06/17/2024 COLONOSCOPY - COLON CA SCREENING 06/17/2034 06/17/2024 Colorectal Cancer Screening 06/17/2034 PNEUMOCOCCAL VACCINE 50+ Completed 05/12/2018, 05/03 BONE DENSITY TESTING Completed 11/17/2023 HEPATITIS C SCREENING Completed 06/14/2024 , 01/10/2023, 11/06/2019 DEPRESSION SCREENING Completed 11/29/2024, 03/29/2024, 07/29/2022, Additional history exists HEPATITIS B VACCINE Aged Out No longe [...] Procedure Name Priority Date/Time Associated Diagnosis Comments PROTEIN CREATININE RATIO URINE RANDOM PNL Routine 11/29/2024 3:02 PM CDT Dysuria URINALYSIS W/MICROSCOPIC REFLEX TO CULTURE Routine 11/29/2024 3:02 PM CDT Dysuria C-REACTIVE PROTEIN Routine 11/29/2024 3: 01 PM CDT Seronegative rheumatoid arthritis (HCC) ERYTHROCYTE SEDIMENTATION RATE Routine 11/29/2024 3:01 PM CDT Seronegative rheumatoid arthritis (HCC) COMPREHENSIVE METABOLIC PANEL Routine 11/29/2024 3:01 PM CDT Seronegative rheumatoid arthritis (HCC) CBC W AUTO DIFFERENTIAL Routine 11/29/2024 3:01 PM CDT Seronegative rheumatoid arthritis (HCC) HEPATITIS SCREEN ACUTE ([facility]) Routine 06/14/2024 12:50 PM SPIRITUAL MINISTER Seropositive rheumatoid arthritis Encounter for other specified special examinations from Last 3 Months or Most Recently Relevant to Health Maintenance Results * URINALYSIS W/MICROSCOPIC REFLEX TO CULTURE (11/29/2024 3:02 PM CDT) Specific [place] UA 1.019 1.005 - 1.030 [facility] INSURANCE BILL pH UA 6.0 5.0 - 7.5 [facility] INSURANCE BILL Color UA Yellow Yellow [facility] INSURANCE BILL Appearance Clear Clear [facility] INSURANCE BILL Leukocyte UA Negative Negative [facility] INSURANCE BILL Protein UA Negative Negative/Tra ce [facility] INSURANCE BILL Glucose UA Negative Negative [facility] INSURANCE BILL Ketone UA Negative Negative [facility] INSURANCE BILL Occult Blood Urine Negative Negative [facility] INSURANCE BILL Bilirubin UA Negative Negative [facility] INSURANCE BILL Urobilinogen 0.2 0.2 - 1.0 mg/dL [facility] INSURANCE BILL Nitrite UA Negative Negative [facility] INSURANCE BILL Microscopic Examination Urine Comment [facility] INSURANCE BILL Comment:Microscopic follows if indicated. Microscopic Examination Urine See below: [facility] INSURANCE BILL Comment:Microscopic was preeti cated and was performed. Urinalysis Reflex Comment [facility] INSURANCE BILL Comment: This specimen will not reflex to a Urine Culture. Performed at: [address] [id number] [place] Operator: John Caban PhD, Phone: [phone] WBC UA 0-5 0 - 5 /hpf [facility] INSURANCE BILL RBC UA 0-2 0 - 2 /hpf [facility] INSURANCE BILL Epithelial Cells (non renal) 0-10 0 - 10 /hpf [facility] INSURANCE BILL Casts ua None seen None seen /lpf [facility] INSURANCE BILL Bacteria UA Few None seen/Few [facility] INSURANCE BILL Urine URINE SPECIMEN OBTAINED BY CLEAN CATCH PROCEDURE / Unknown 11/29/2024 3:02 PM CDT 11/29/2024 Narrative [facility] INSURANCE BILL - 11/30/2024 7:09 AM CDT Performed at: [address] [id number] [place] Operator: John Caban PhD, Phone: [phone] us Kami Llanos MD LAB - URINALYSIS ORDERABLES Elizabeth l Result [facility] INSURANCE BILL [address] [place] [address] * PROTEIN CREATININE RATIO URINE RANDOM PNL (11/29/2024 3:02 PM CDT) Creatinine Urine 61.1 Not Estab. mg/dL [facility] INSURANCE BILL Protein Urine 9.1 Not Estab. mg/dL [facility] INSURANCE BILL Protein/Creatin ine Ratio 149 0 - 200 mg/g creat [facility] INSURANCE BILL Urine URINE SPECIMEN OBTAINED BY CLEAN CATCH PROCEDURE / Unknown 11/29/2024 3:02 PM CDT 11/29/2024 Narrative [facility] INSURANCE BILL - 11/30/2024 1:09 PM CDT Performed at: [address] [place] [id number] [place] Operator: John Caban PhD, Phone: [phone] Kami Llanos MD LAB - URINE CHEMISTRY ORDERABLES Final Result Performing Organization Address [facility]/ZIP Co de Phone Number [facility] INSURANCE BILL [address] [place] [phone] * C-REACTIVE PROTEIN (11/29/2024 3:01 PM CDT) C-Reactive Protein <1 0 - 10 mg/L [facility] INSURANCE BILL Blood BLOOD SPECIMEN / Unknown 11/29/2024 3:01 PM CDT 11/29/2024 Narrative [facility] INSURANCE BILL - 11/30/2024 9:10 AM CDT Performed at: [address] [place] [id number] [place] Operator: John Caban PhD, Phone: [phone] Kami Llanos MD LAB - CHEMISTRY ORDERABLES Final Result Performing Organization Address [facility] de Phone Number [facility] INSURANCE BILL [address] [place] [phone] * ERYTHROCYTE SEDIMENTATION RATE (11/29/2024 3:01 PM CDT) Erythrocyte Sedimentation Rate Westergren 2 0 - 40 mm/hr [facility] INSURANCE BILL Blood BLOOD SPECIMEN / Unknown 11/29/2024 3:01 PM CDT 11/29/2024 Narrative [facility] INSURANCE BILL - 11/30/2024 7:09 AM CDT Performed at: [address] [place] [id number] [place] Operator: John Caban PhD, Phone: [phone] us Kami Llanos MD LAB - HEMATOLOGY ORDERABLES Elizabeth l Result [facility] INSURANCE BILL [address] [place] [address] * CBC WITH DIFFERENTIAL (11/29/2024 3:01 PM CDT) WBC 7.2 3.4 - 10.8 x10E3/uL [facility] INSURANCE BILL RBC 4.35 3.77 - 5.28 x10E6/uL [facility] INSURANCE BILL Hemoglobin 13.3 11.1 - 15.9 g/dL [facility] INSURANCE BILL Hematocrit 41.4 34.0 - 46.6 % [facility] INSURANCE BILL MCV 95 79 - 97 fL [facility] INSURANCE BILL MCH 30.6 26.6 - 33.0 pg [facility] INSURANCE BILL MCHC 32.1 31.5 - 35.7 g/dL [facility] INSURANCE BILL RDW 13.6 11.7 - 15.4 % [facility] INSURANCE BILL Platelet Count 263 150 - 450 x10E3/uL [facility] INSURANCE BILL Granulocytes % 74 Not Estab. % [facility] INSURANCE BILL Lymphocytes % 18 Not Estab. % [facility] INSURANCE BILL Monocytes % 7 Not Estab. % [facility] INSURANCE BILL Eosinophils % 0 Not Estab. % [facility] INSURANCE BILL Basophils % 0 Not Estab. % [facility] INSURANCE BILL Granulocytes Absolute 5.3 1.4 - 7.0 x10E3/uL [facility] INSURANCE BILL Lymphocytes Absolute 1.3 0.7 - 3.1 x10E3/uL [facility] INSURANCE BILL Monocytes Absolute 0.5 0.1 - 0.9 x10E3/uL [facility] INSURANCE BILL Eosinophils Absolute 0.0 0.0 - 0.4 x10E3/uL [facility] INSURANCE BILL Basophils Absolute 0.0 0.0 - 0.2 x10E3/uL [facility] INSURANCE BILL Immature Granulocytes 1 Not Estab. % [facility] INSURANCE BILL Immature Granulocytes Absolute 0.0 0.0 - 0.1 x10E3/uL [facility] INSURANCE BILL Blood BLOOD SPECIMEN / Unknown 11/29/2024 3:01 PM CDT 11/29/2024 Narrative [facility] INSURANCE BILL - 11/30/2024 7:09 AM CDT Performed at: [facility] [address] [place], [place] [id number] [place] Operator: John Caban PhD, Phone: [phone] Kami Llanos MD LAB - HEMATOLOGY ORDERABLES Elizabeth l Result [facility] INSURANCE BILL [address] [place] [address] * (ABNORMAL) COMPREHENSIVE METABOLIC PANEL (11/29/2024 3:01 PM CDT) [facility] Glucose 134(H) 70 - 99 mg/dL [facility] INSURANCE BILL BUN 21 8 - 27 mg/dL [facility] INSURANCE BILL Creatinine 0.69 0.57 - 1.00 mg/dL [facility] INSURANCE BILL eGFR by CKD-EPI 92 >59 mL/min/1.7 3 [facility] INSURANCE BILL BUN/Creatinine Ratio 30(H) 12 - 28 [facility] INSURANCE BILL Sodium 140 134 - 144 mmol/L [facility] INSURANCE BILL Potassium 5.1 3.5 - 5.2 mmol/L [facility] INSURANCE BILL Chloride 103 96 - 106 mmol/L [facility] INSURANCE BILL CO2 23 20 - 29 mmol/L [facility] INSURANCE BILL Calcium 9.4 8.7 - 10.3 mg/dL [facility] INSURANCE BILL Protein Total 6.5 6.0 - 8.5 g/dL [facility] INSURANCE BILL Albumin 4.3 3.8 - 4.8 g/dL [facility] INSURANCE BILL Globulin Total 2.2 1.5 - 4.5 g/dL [facility] INSURANCE BILL Bilirubin Total 0.6 0.0 - 1.2 mg/dL [facility] INSURANCE BILL Alkaline Phosphatase 61 44 - 121 IU/L [facility] INSURANCE BILL AST 12 0 - 40 IU/L [facility] INSURANCE BILL ALT 13 0 - 32 IU/L [facility] INSURANCE BILL Blood BLOOD SPECIMEN / Unknown 11/29/2024 3:01 PM CDT 11/29/2024 Narrative [facility] INSURANCE BILL - 11/30/2024 7:09 AM CDT Performed at: 01 - [facility] [id number] [place] Operator: John Caban PhD, Phone: [phone] Kami Llanos MD LAB - CHEMISTRY ORDERABLES Final Result Performing Organization Address [facility] Co de Phone Number [facility] INSURANCE BILL [address] [place] [address] * HEPATITIS SCREEN ACUTE ([facility]) (06/14/2024 12:50 PM SPIRITUAL MINISTER) Hepatitis A Virus Antibody IgM Negative Negative [facility] INSURANCE BILL Comment: A negative anti-HAV IgM result suggests no recent or current HAV infection. Hepatitis B Virus Surface Antigen Negative Negative [facility] INSURANCE BILL Hepatitis B Core Virus Antibody IgM Negative Negative [facility] INSURANCE BILL Hepatitis C Antibody Non Reactive Non Reactive [facility] INSURANCE BILL Comment: Performed at: [address] [id number] [place] Operator: John Caban PhD, Phone: [phone] Interpretation Comment [facility] INSURANCE BILL Comment: Not infected with HCV unless early or acute infection is suspected (which may be delayed in an immunocompromised individual), or other evidence exists to indicate HCV infection. Blood BLOOD SPECIMEN / Unknown 06/14/2024 12:50 PM SPIRITUAL MINISTER 06/14/2024 Narrative [facility] INSURANCE BILL - 06/15/2024 7:08 AM SPIRITUAL MINISTER Performed at: [address] [id number] [place] Operator: John Caban PhD, Phone: [phone] Kami Llanos MD LAB - CHEMISTRY ORDERABLES Final Result Performing Organization Address [facility] Co de Phone Number [facility] INSURANCE BILL [address] [place] [address] from Last 3 Months or Most Recently Relevant to Health Maintenance [place] [address] [place] [address] [place] [address] [facility] Care Teams Business Planning Manager Relationship Specialty [place] [address] [address] [address] PCP - General Family Medicine 06/14/23
--- OUTSIDE RECORDS SUMMARY | 2025-02-14 14:51 | XMS_ITS | Encounter Summary ---
Author Organization [facility] Address [address] [place] [address] Care Team Providers Care Enlisted Aircrew/Aerial Observer/Gunner Name Role Phone Vanessa Ogden MD Primary Care Provider [phone] Jordan Castro MD Unavailable [phone] Soila Neumann MD Primary Care Provider [phone] Akhil Vergara DO Unavailable Encounter Details Date Type Department Care Team (Late st Contact Info) Description 04/18/2019 Enforcer eCoachingt Message Enc [facility] Family & Internal Medicine [facility] [id number] [place] [phone] [place] [id number] [place] [address] RE: Referral Request Social History Tobacco Use Types Packs/Day Years Used Date Smoking Tobacco: Never Smokeless Tobacco: Never Alcohol Use Standard Drinks/Week Comments Yes 0 (1 standard drink = 0.6 oz pur e alcohol) Rare use PHQ-2 Answer Date Recorded PHQ-2 Score 0 09/28/2018 Comments No Sex and Gender Information Value Date Recorded Sex Assigned at Female 06/28/2021 1:39 PM APPAREL MANUFACTURE INSTRUCTOR Legal Sex Female 3:51 PM APPAREL MANUFACTURE INSTRUCTOR Gender Identity Female 06/28/2021 1:39 PM APPAREL MANUFACTURE INSTRUCTOR Sexual Orientation Straight 06/28/2021 1: 39 PM APPAREL MANUFACTURE INSTRUCTOR documented as of this encounter Plan of Treatment Upcoming Encounters Date Type Department Care Team (Latest Contact Info) Description 02/21/2025 9:00 AM CDT Hospital Encounter [facility] [place] [address] [phone] Carolyn Fernando MD [facility] [address] [place] [address] 02/21/2025 9:00 AM CDT - 02/21/2025 9:20 AM CDT Surgery [facility] [place] [address] [phone] Carolyn Feranndo MD [facility] [address] [place] [address] BLOCK SACROILIAC JOINT 05/05/2025 1:00 PM APPAREL MANUFACTURE INSTRUCTOR Office Visit [facility] Family & Internal Medicine [address] [phone] [place] [address] [place] [address] 08/15/2025 2:20 PM APPAREL MANUFACTURE INSTRUCTOR Office Visit [facility] Family & Internal [address] [phone] [place] [address] [place] [address] Scheduled Procedures Name Priority Associated Diagnoses Date/Ti me BLOCK SACROILIAC JOINT SI joint arthritis 02/21/2025 9:00 AM CDT documented as of this encounter Visit Diagnoses Not on filedocumented in this encounter Additional Health Concerns Infection Onset Date Last Indicated Resolved Time COVID-19 Rule Out 09/08/2021 09/08/2021 09/08/2021 10:37 AM APPAREL MANUFACTURE INSTRUCTOR documented as of this encounter Care Teams Enlisted Aircrew/Aerial Observer/Gunner Relationship Specialty Start Date End Date Vanessa Ogden MD PCP - General INTERNAL MEDICINE 08/14/18 08/10/22 [place] [address] [facility] [address] [place], [place] [phone] PCP - General FAMILY PRACTICE 08/11/22 Jordan Castro MD [address] [place] [address] Surgeon ORTHOPAEDIC SURGERY 01/13/20 Akhil Vergara DO [address] [place], [place] [phone] INTERNAL MEDICINE 01/02/25 documented as of this encounter
--- OUTSIDE RECORDS SUMMARY | 2025-02-14 14:51 | XMS_ITS | Encounter Summary ---
Author Organization [facility] Address [address] [place] [address] Care Team Providers Care Still Pump Operator Name Role Phone Vanessa Ogden MD Primary Care Provider [phone] Jordan Castro MD Unavailable [phone] Soila Neumann MD Primary Care Provider [phone] Akhil Vergara DO Unavailable Encounter Details Date Type Department Care Team (Late st Contact Info) Description 11/02/2021 [employer] Message Enc [facility] Family & Internal Medicine [facility] [address] [place] [address] [place] [address] [place] [address] IDPH medical cannabis renewal has changed [...] Sex Assigned at Female 06/28/2021 1:39 PM UTILITY TECHNICIAN Legal Sex Female 3:51 PM UTILITY TECHNICIAN Gender Identity Female 06/28/2021 1:39 PM UTILITY TECHNICIAN Sexual Orientation Straight 06/28/2021 1: 39 PM UTILITY TECHNICIAN Occupation Industry Job Start Date Job End [...] Description 02/21/2025 9:00 AM CDT Hospital Encounter [facility] [place] [address] [id number] Carolyn Fernando MD [facility] [address] [place] [address] 02/21/2025 9:00 AM CDT - 02/21/2025 9:20 AM CDT Surgery [facility] [place] [address] [id number] Carolyn Fernando MD [facility] [address] [place] [address] BLOCK SACROILIAC JOINT 05/05/2025 1:00 PM UTILITY TECHNICIAN Office Visit [facility] Family & Internal Medicine [address] [address] Soila Neumann MD [address] [place] [address] 08/15/2025 2:20 PM UTILITY TECHNICIAN Office Visit [facility] Family & Internal Medicine [address] [place] [phone] [place] [address] [facility] [place] [address] Scheduled Procedures Name Priority Associated Diagnoses Date/Ti me BLOCK SACROILIAC JOINT SI joint arthritis 02/21/2025 9:00 AM CDT documented as of this encounter Visit Diagnoses Not on filedocumented in this encounter Additional Health Concerns Assessment Noted Time PHQ-9 Depression Total Score: 3 09/09/19 22 9:29 AM UTILITY TECHNICIAN documented as of this encounter Care Teams Still Pump Operator Relationship Specialty Start Date End Date Vanessa Ogden MD PCP - General INTERNAL MEDICINE 08/14/18 08/10/22 [place] [address] [address] [place] [address] PCP - General FAMILY PRACTICE 08/11/22 Jordan Castro MD [address] [facility] [address] [place] [address] Surgeon ORTHOPAEDIC SURGERY 01/13/20 Akhil Vergara DO [address] [place] [address] INTERNAL MEDICINE 01/02/25 documented as of this encounter
--- OUTSIDE RECORDS SUMMARY | 2025-02-14 14:51 | XMS_ITS | Encounter Summary ---
Author Organization [facility] Address [address] [place] [address] Care Team Providers Care Finished Goods Inspector Name Role Phone Vanessa Ogden MD Primary Care Provider [phone] Jordan Castro MD Unavailable [phone] Soila Neumann MD Primary Care Provider [phone] Akhil Vergara DO Unavailable Encounter Details Date Type Department Care Team (Latest Contact Info) Description 09/28/[address] [facility] [place] [address] [place] [address] Ricky Ramsey, DPM [address] [place] [address] recently new orthotics Social History [...] Sex Assigned at Female 06/28/2021 1:39 PM GRADING SUPERVISOR Legal Sex Female 3:51 PM GRADING SUPERVISOR Gender Identity Female 06/28/2021 1:39 PM GRADING SUPERVISOR Sexual Orientation Straight 06/28/2021 1: 39 PM GRADING SUPERVISOR Occupation Industry Job Start Date Job End Date RETIRED Not on file Not on file Not on file COVID-19 Exposure Response Date Recorded In the last 10 days, have yo u been in contact with someone who was confirmed or suspected to have Coronavirus/COVID-19? No / Unsure 09/10/2021 1:28 PM GRADING SUPERVISOR documented as of this encounter Plan of Treatment Upcoming Encounters Date Type Department Care Team (Latest Contact Info) Description 02/21/2025 9:00 AM CDT Hospital Encounter [facility] Interventional [place] [address] [id number] Carolyn Fernando MD [facility] [address] [place] [address] 02/21/2025 9:00 AM CDT - 02/21/2025 9:20 AM CDT Surgery [facility] Interventional [place] [address] [id number] Carolyn Fernando MD [facility] [address] [place] [address] BLOCK SACROILIAC JOINT 05/05/2025 1:00 PM GRADING SUPERVISOR Office Visit [facility] Family & Internal Medicine [address] [address] Soila Neumann MD [address] [place] [address] 08/15/2025 2:20 PM GRADING SUPERVISOR Office Visit [facility] Family & Internal Medicine [address] [place] [phone] [place] [address] [facility] [address] [place] [address] Scheduled Procedures Name Priority Associated Diagnoses Date/Ti me BLOCK SACROILIAC JOINT SI joint arthritis 02/21/2025 9:00 AM CDT documented as of this encounter Visit Diagnoses Not on filedocumented in this encounter Additional Health Concerns Assessment Noted Time PHQ-9 Depression Total Score: 3 09/09/19 22 9:29 AM GRADING SUPERVISOR documented as of this encounter Care Teams Finished Goods Inspector Relationship Specialty Start Date End Date Vanessa Ogden MD PCP - General INTERNAL MEDICINE 08/14/18 08/10/22 [place] [address] [address] [place] [address] PCP - General FAMILY PRACTICE 08/11/22 Jordan Castro MD [address] [facility] [address] [place] [address] Surgeon ORTHOPAEDIC SURGERY 01/13/20 Akhil Vergara DO [address] [place] [address] INTERNAL MEDICINE 01/02/25 documented as of this encounter
--- OUTSIDE RECORDS SUMMARY | 2025-02-14 14:51 | XMS_ITS | Encounter Summary ---
Author Organization [facility] Address [address] [place] [address] Care Team Providers Care Project Management It Specialist Name Role Phone Vanessa Ogden MD Primary Care Provider [phone] Jordan Castro MD Unavailable [phone] Soila Neumann MD Primary Care Provider [phone] Akhil Vergara DO Unavailable Encounter Details Date Type Department Care Team (Late st Contact Info) Description 08/02/2021 [employer]ant Message Enc [facility] Family & Internal Medicine [facility] [address] [place] [address] [place] [id number] [place] [address] Hydrocodone Refil Social History Tobacco Use [...] Assigned at Female 06/28/2021 1:39 PM CREDIT ASSESSMENT ANALYST Legal Sex Female 3:51 PM CREDIT ASSESSMENT ANALYST Gender Identity Female 06/28/2021 1:39 PM CREDIT ASSESSMENT ANALYST Sexual Orientation Straight 06/28/2021 1: 39 PM CREDIT ASSESSMENT ANALYST Occupation Industry Job Start Date Job End Date RETIRED Not on file Not on file Not on file COVID-19 Exposure Response Date Recorded In the last month, have you been in contact with someone who was confirmed or suspected to have Coronavirus / COVID-19? No / Unsure 07/12/2021 9:49 AM CREDIT ASSESSMENT ANALYST documented as of this encounter Plan of Treatment Upcoming Encounters Date Type Department Care Team (Latest Contact Info) Description 02/21/2025 9:00 AM CDT Hospital Encounter [facility] Interventional [place] [address] [id number] Carolyn Fernando MD [facility] [address] [place] [address] 02/21/2025 9:00 AM CDT - 02/21/2025 9:20 AM CDT Surgery [facility] Interventional [place] [address] [id number] Carolyn Fernando MD [facility] [address] [place] [address] BLOCK SACROILIAC JOINT 05/05/2025 1:00 PM CREDIT ASSESSMENT ANALYST Office Visit [facility] Family & Internal Medicine [address] [address] Soila Neumann MD [address] [place] [address] [id number] 08/15/2025 2:20 PM CREDIT ASSESSMENT ANALYST Office Visit [facility] Family & Internal Medicine [address] [phone] [place] [address] [facility] [address] [place] [address] Scheduled Procedures Name Priority Associated Diagnoses Date/Ti me BLOCK SACROILIAC JOINT SI joint arthritis 02/21/2025 9:00 AM CDT documented as of this encounter Visit Diagnoses Not on filedocumented in this encounter Additional Health Concerns Infection Onset Date Last Indicated Resolved Time COVID-19 Rule Out 09/08/2021 09/08/2021 09/08/2021 10:37 AM CREDIT ASSESSMENT ANALYST documented as of this encounter Care Teams Project Management It Specialist Relationship Specialty Start Date End Date Vanessa Ogden MD PCP - General INTERNAL MEDICINE 08/14/18 08/10/22 [place] [address] [address] [place] [address] PCP - General FAMILY PRACTICE 08/11/22 Jordan Castro MD [address] [facility] [address] [place] [address] Surgeon ORTHOPAEDIC SURGERY 01/13/20 Akhil Vergara DO [address] [place] [address] INTERNAL MEDICINE 01/02/25 documented as of this encounter
--- OUTSIDE RECORDS SUMMARY | 2025-02-14 14:51 | XMS_ITS | Encounter Summary ---
Author Organization [facility] Address [address] [place] [address] Care Team Providers Care Operations Logistics Analyst Name Role Phone Vanessa Ogden MD Primary Care Provider [phone] Jordan Castro MD Unavailable [phone] Soila Neumann MD Primary Care Provider [phone] Akhil Vergara DO Unavailable Encounter Details Date Type Department Care Team (Late st Contact Info) Description 03/25/2019 hopscoutt Message Enc [facility] Medical Group Family & Internal Medicine [facility] [address] [place] [address] [place] Ogden [place] [phone] [place] [address] RE: Follow Up/Update Social History Tobacco Use Types Packs/Day Years Used Date Smoking Tobacco: Never Smokeless Tobacco: Never Alcohol Use Standard Drinks/Week Comments Yes 0 (1 standard drink = 0.6 oz pur e alcohol) Rare use PHQ-2 Answer Date Recorded PHQ-2 Score 0 09/28/2018 Comments No Sex and Gender Information Value Date Recorded Sex Assigned at Female 06/28/2021 1:39 PM TILLER MAN Legal Sex Female 3:51 PM TILLER MAN Gender Identity Female 06/28/2021 1:39 PM TILLER MAN Sexual Orientation Straight 06/28/2021 1: 39 PM TILLER MAN documented as of this encounter Plan of Treatment Upcoming Encounters Date Type Department Care Team (Latest Contact Info) Description 02/21/2025 9:00 AM CDT Hospital Encounter [facility] [place] [address] [id number] Carolyn Fernando MD [facility] [address] [place] [address] 02/21/2025 9:00 AM CDT - 02/21/2025 9:20 AM CDT Surgery [facility] Interventional Pain [place] [address] [id number] Carolyn Fernando MD [facility] [address] [place] [address] BLOCK SACROILIAC JOINT 05/05/2025 1:00 PM TILLER MAN Office Visit [facility] Family & Internal Medicine [address] [phone] [place] [address] [facility] [address] [place] [address] 08/15/2025 2:20 PM TILLER MAN Office Visit [facility] Family & Internal [address] [phone] [place] [address] [facility] [address] [place] [address] Scheduled Procedures Name Priority Associated Diagnoses Date/Ti me BLOCK SACROILIAC JOINT SI joint arthritis 02/21/2025 9:00 AM CDT documented as of this encounter Visit Diagnoses Not on filedocumented in this encounter Additional Health Concerns Infection Onset Date Last Indicated Resolved Time COVID-19 Rule Out 09/08/2021 09/08/2021 09/08/2021 10:37 AM TILLER MAN documented as of this encounter Care Teams Operations Logistics Analyst Relationship Specialty Start Date End Date Vanessa Ogden MD PCP - General INTERNAL MEDICINE 08/14/18 08/10/22 [place] [address] [facility] [place] [address] PCP - General FAMILY PRACTICE 08/11/22 Jordan Castro MD [address] [place] [address] Surgeon ORTHOPAEDIC SURGERY 01/13/20 Akhil Vergara DO [address] [place], [place] [id number] INTERNAL MEDICINE 01/02/25 documented as of this encounter
--- OUTSIDE RECORDS SUMMARY | 2025-02-14 14:51 | XMS_ITS | Encounter Summary ---
Author Organization [facility] Address [address] [place] [address] Care Team Providers Care Certified Retinal Angiographer Name Role Phone Vanessa Ogden MD Primary Care Provider [phone] Jordan Castro MD Unavailable [phone] Soila Neumann MD Primary Care Provider [phone] Akhil Vergara DO Unavailable Encounter Details Date Type Department Care Team (Late st Contact Info) Description 12/30/2021 [employer] Message Enc [facility] Group Family & Internal Medicine [facility] [address] [place] [address] [place] [address] [place] [address] prior ankle msg Social History Tobacco [...] Sex Assigned at Female 06/28/2021 1:39 PM EVENT SALES REPRESENTATIVE Legal Sex Female 3:51 PM EVENT SALES REPRESENTATIVE Gender Identity Female 06/28/2021 1:39 PM EVENT SALES REPRESENTATIVE Sexual Orientation Straight 06/28/2021 1: 39 PM EVENT SALES REPRESENTATIVE Occupation Industry Job Start Date [...] Description 02/21/2025 9:00 AM CDT Hospital Encounter [facility] [place] [address] [id number] Carolyn Fernando MD [facility] [address] [place] [address] 02/21/2025 9:00 AM CDT - 02/21/2025 9:20 AM CDT Surgery [facility] [place] [address] [id number] Carolyn Fernando MD [facility] [address] [place] [address] BLOCK SACROILIAC JOINT 05/05/2025 1:00 PM EVENT SALES REPRESENTATIVE Office Visit [facility] Family & Internal Medicine [address] [phone] Soila Neumann MD [address] [place] [address] 08/15/2025 2:20 PM EVENT SALES REPRESENTATIVE Office Visit [facility] Family & Internal Medicine [address] [phone] [place] [address] [facility] [address] [place] [address] Scheduled Procedures Name Priority Associated Diagnoses Date/Ti me BLOCK SACROILIAC JOINT SI joint arthritis 02/21/2025 9:00 AM CDT documented as of this encounter Visit Diagnoses Not on filedocumented in this encounter Additional Health Concerns Assessment Noted Time PHQ-9 Depression Total Score: 3 09/09/19 22 9:29 AM EVENT SALES REPRESENTATIVE documented as of this encounter Care Teams Certified Retinal Angiographer Relationship Specialty Start Date End Date Vanessa Ogden MD PCP - General INTERNAL MEDICINE 08/14/18 08/10/22 [place] [address] [facility] [address] [place] [address] PCP - General FAMILY PRACTICE 08/11/22 Jordan Castro MD [address] [facility] [address] [place] [address] Surgeon ORTHOPAEDIC SURGERY 01/13/20 Akhil Vergara DO [address] [place] [address] INTERNAL MEDICINE 01/02/25 documented as of this encounter
[2025-02-14 14:52] VITALS: BP 158/71; PULSE 108; RESP 18; TEMP 36.6; O2SAT 98
--- OUTSIDE RECORDS SUMMARY | 2025-02-14 14:52 | XMS_ITS | Encounter Summary ---
Author Organization [facility] Address [address] [facility] [place] [address] Care Team Providers Care Interrelated Special Education Teacher Name Role Phone Sofi Davis MD Primary Care Provider + Vanessa Ogden MD Primary Care Provider [phone] Soila Neumann MD Primary Care Provider [phone] Encounter Details Date Type Department Care Team (Late st Contact Info) Description 05/18/2021 Lab Requisition [facility] Care [facility] Lab [address] [facility], [facility] [place] [address] Francisco Sims MD [address] [facility] [place] [address] Social History Tobacco Use Types Packs/Day Years Used Date Smoking Tobacco: Former Cigarettes Smokeless Tobacco: Never Comments:quit 1977 Alcohol Use Standard Drinks/Week Comments Yes 0 (1 standard drink = 0.6 oz pur e alcohol) OCC Comments No Sex and Gender Information Value Date Recorded Sex Assigned at Female 08/31/2020 11:23 AM COMBINE MECHANIC Legal Sex Female 6:25 PM COMBINE MECHANIC Gender Identity Female 08/31/2020 11:23 AM COMBINE MECHANIC Sexual Orientation Straight 08/31/2020 11 :23 AM COMBINE MECHANIC documented as of this encounter Plan of Treatment Upcoming Encounters Date Type Department Care Team (Late st Contact Info) Description 03/14/2025 1:00 PM CDT Hospital Encounter [facility] - Rheumatology [address] [place] [address] [id number] 05/09/2025 1:00 PM COMBINE MECHANIC Appointment [facility] - Rheumatology [address] [place] [address] 05/09/2025 1:20 PM COMBINE MECHANIC Office Visit [facility] - Rheumatology [address] [place] [address] Kami Llanos MD [address] [place] [phone] documented as of this encounter Procedures Procedure Name Priority Date/Time Associated Diagnosis Comments DERMATOPATHOLOGY Routine 05/14/2021 12:0 0 AM COMBINE MECHANIC documented in this encounter Results * DERMATOPATHOLOGY (05/14/2021 12:00 AM COMBINE MECHANIC) Case Report Dermatopathology Report Case: [id number] Authorizing Provider: Francisco Sims MD Collected: 05/14/2021 12:00 AM Ordering Location: [facility] Lab Received: 05/18/2021 06:20 AM Pathologist: Edith Powell MD Specimens: A) - Skin, left shoulder B) - Skin, center back 4:44 PM COMBINE MECHANIC DERMATOPATHOLOGY LABORATORY Final Diagnosis Specimen A. SKIN, left shoulder: COMPOUND MELANOCYTIC NEVUS (D22.62) JUNCTIONAL MELANOCYTIC NEVUS (D22.62) SOLAR LENTIGO (L81.4) (see microscopic description and comment) Specimen B. SKIN, center back: INTRADERMAL MELANOCYTIC NEVUS WITH CONGENITAL FEATURES (D22.9) 4:44 PM COMBINE MECHANIC DERMATOPATHOLOGY LABORATORY at 1644 COMBINE MECHANIC Clinical History A: SK vs nevus vs MM. Path# [id number] B: SK vs nevus vs MM. Path# [id number] 4:44 PM COMBINE MECHANIC DERMATOPATHOLOGY LABORATORY Gross Description Specimen A: Received is one formalin filled container labeled with the patient's name and designated left shoulder. The specimen consists of a shave biopsy measuring [id number]. Jar 0. Specimen B: Received is one formalin filled container labeled with the patient's name and designated center back. The specimen consists of a shave biopsy measuring [id number]. Jar 0. 1 4:44 PM [facility] DERMATOPATHOLOGY LABORATORY Microscopic Description Specimen A. SKIN, [...] concentrated around blood vessels and adnexal structures. 1 4:44 PM [facility] DERMATOPATHOLOGY LABORATORY Disclaimer An external and internal positive and negative controls are appropriate for the histochemical, immunohistochemical and immunofluorescence stain(s) in this case (if any), except where stated explicitly. The performance characteristics of the stain(s) cited in this report were developed and its performance characteristic determined by the Dermatopathology Laboratory at [facility], directed by Dr. Jaret King. These tests need not be, and therefore are not, approved by the [place] Food and Drug Administration. The tests are used for clinical purposes. Billing Codes Specimen Charges Stain Charges 16616 75167 1 1 03172 1 1 4:44 PM [facility] DERMATOPATHOLOGY LABORATORY Embedded Images 1 4:44 PM [facility] DERMATOPATHOLOGY LABORATORY Pathology/Cytology TISSUE SPECIMEN FROM SKIN / Unknown 05/14/2021 05/18/2021 6:20 AM COMBINE MECHANIC Miscellaneous samples (specimen) TISSUE SPECIMEN FROM SKIN / Unknown 05/14/2021 05/18/2021 6:20 AM COMBINE MECHANIC us Francisco Sims MD LAB - PATHOLOGY/CYTOLOGY ORDER UMAIR Final Result DERMATOPATHOLOGY LABORATORY [facility] - Department of D[facility], 3rd Floor [address] [phone] documented in this encounter Visit Diagnoses Not on filedocumented in this encounter Care Teams Interrelated Special Education Teacher Relationship Specialty Start Date End Date Sofi Davis MD [address] [place] [address] PCP - General 05/17/21 05/18/21 Vanessa Ogden MD [address] [place] [address] PCP - General Internal Medicine 05/19/21 06/13/23 [place] [address] [address] PCP - General Family Medicine 06/14/23 documented as of this encounter
--- OUTSIDE RECORDS SUMMARY | 2025-02-14 14:52 | XMS_ITS | Encounter Summary ---
Author Organization [facility] Address [address] [place] [address] Care Team Providers Care Secondary Set Up Man Name Role Phone Jordan Castro MD Unavailable [phone] Soila Neumann MD Primary Care Provider [phone] Akhil Vergara DO Unavailable Encounter Details Date Type Department Care Team (Late st Contact Info) Description 2024 [employer] Message Enc [facility] Family & Internal Medicine [facility] [address] [place] [address] Soila Neumann MD [address] [place] [address]. [address] [place] [address] chest/lung illness Social History Tobacco Use [...] Sex Assigned at Female 06/28/2021 1:39 PM COMMUNICATIONS AGENT Legal Sex Female 3:51 PM COMMUNICATIONS AGENT Gender Identity Female 06/28/2021 1:39 PM COMMUNICATIONS AGENT Sexual Orientation Straight 06/28/2021 1: 39 PM COMMUNICATIONS AGENT Occupation Industry Job Start Date Job End Date RETIRED Not on file Not on file Not on file documented as of this encounter Functional Status * Over the past 2 weeks, how often have you been bothered by any of the following problems? Question Answer Date of Assessment Author Status Little interest or pleasure in doing things Not at all 07/11/2024 2:36 PM COMMUNICATIONS AGENT Alana Azar MA Act norah Feeling down, depressed, or hopeless Not at all 07/11/2024 2:36 PM COMMUNICATIONS AGENT Alana Azar MA Active Patient Health Questionnaire-2 Score 0 07/11/2024 2:36 PM COMMUNICATIONS AGENT Alana Azar MA Active documented as of this encounter Plan of Treatment Upcoming Encounters Date Type Department Care Team (Latest Contact Info) Description 02/21/2025 9:00 AM CDT Hospital Encounter [facility] Interventional [place] [address] [id number] Carolyn Fernando MD Three [facility] [address] [place] [address] 02/21/2025 9:00 AM CDT - 02/21/2025 9:20 AM CDT Surgery [facility] Interventional [place] [address] [id number] Carolyn Fernando MD Three [facility] [address] [place] [address] BLOCK SACROILIAC JOINT 05/05/2025 1:00 PM COMMUNICATIONS AGENT Office Visit [facility] Family & Internal Medicine [address] [address] Soila Neumann MD [address] [place] [address] 08/15/2025 2:20 PM COMMUNICATIONS AGENT Office Visit [facility] Family & Internal Medicine - [place] [address] [place] [address] [place] [address] [facility] [address] [place] [address] Scheduled Procedures Name Priority Associated Diagnoses Date/Ti me BLOCK SACROILIAC JOINT SI joint arthritis 02/21/2025 9:00 AM CDT documented as of this encounter Visit Diagnoses Not on filedocumented in this encounter Additional Health Concerns Assessment Noted Time PHQ-9 Depression Total Score: 2 08/03/19 2:16 PM COMMUNICATIONS AGENT documented as of this encounter Care Teams Secondary Set Up Man Relationship Specialty [place] [address] [address] [place] [address] PCP - General FAMILY PRACTICE 08/11/22 Jordan Castro MD [address] [facility] [place], [place] [id number] Surgeon ORTHOPAEDIC SURGERY 01/13/20 Akhil Vergara DO [address] [place] [address] INTERNAL MEDICINE 01/02/25 documented as of this encounter
--- OUTSIDE RECORDS SUMMARY | 2025-02-14 14:52 | XMS_ITS | Encounter Summary ---
Author Organization [facility] Address [address] [place] [address] Care Team Providers Care Lye Peel Operator Name Role Phone Jordan Castro MD Unavailable [phone] Soila Neumann MD Primary Care Provider Akhil Vergara DO Unavailable Encounter Details Date Type Department Care Team (Latest Contact Info) Description 02/11/2025 Results Follow-Up [facility] Family & Internal Medicine [address] [address] Soila Neumann MD [address] [place] [address]. [address] [place] [address] CBC W/DIFF AUTOMATED, COMPREHENSIVE METABOLIC PANEL, LIPID PANEL, Additional followed-up results: 5 Social History Tobacco Use Types Packs/Day Years [...] Date Recorded Patient Health Questionnaire-2 Score 0 12/05/2024 Comments No Sex and Gender Information Value Date Recorded Sex Assigned at Female 06/28/2021 1:39 PM MILL LABOR SUPERVISOR Legal Sex Female 3:51 PM MILL LABOR SUPERVISOR Gender Identity Female 06/28/2021 1:39 PM MILL LABOR SUPERVISOR Sexual Orientation Straight 06/28/2021 1: 39 PM MILL LABOR SUPERVISOR Occupation Industry Job Start Date Job End Date RETIRED Not on file Not on file Not on file documented as of this encounter Progress Notes * Soila Neumann MD - 02/14/2025 9:27 AM CDT Looks like she is doing pretty good with the diet. So continue that. I would like to check iron levels to see if she would qualify for infusions Lab orders in documented in this encounter Plan of Treatment Upcoming Encounters Date Type Department Care Team (Latest Contact Info) Description 02/21/2025 9:00 AM CDT Hospital Encounter [facility] Interventional [place] [address] [id number] Carolyn Fernando MD Three [facility] [address] [place] [address] 02/21/2025 9:00 AM CDT - 02/21/2025 9:20 AM CDT Surgery [facility] [place]ventional [place] [address] [id number] Carolyn Fernando MD Three [facility] [address] [place] [address] BLOCK SACROILIAC JOINT 05/05/2025 1:00 PM MILL LABOR SUPERVISOR Office Visit [facility] Family & Internal Medicine - [address] [phone] Soila Neumann MD [address] [place] [address]. [address] [place] [id number] 08/15/2025 2:20 PM MILL LABOR SUPERVISOR Office Visit [facility] Group Family & Internal Medicine - [place] [address] [place] [address] [place] [address] [facility] [address] [place] [address] Scheduled Orders Name Type Priority Associated Diagnoses Orde r Schedule FERRITIN Lab Routine Chronic anemia Expected: 02/14/2025, Expires: 02/14/2026 IRON SAT PANEL (IRON,IBC,%SAT) Lab Routine Chronic anemia Expected: 02/14/2025, Expires: 02/14/2026 CBC W/DIFF AUTOMATED Lab Routine Chronic anemia Expected: 02/14/2025, Expires: 02/14/2026 Scheduled Procedures Name Priority Associated Diagnoses Date/Ti me BLOCK SACROILIAC JOINT SI joint arthritis 02/21/2025 9:00 AM CDT documented as of this encounter Visit Diagnoses Diagnosis SI joint arthritis- Primary Sacroiliitis, not elsewhere classified Chronic anemia- Primary Anemia, unspecified Therapeutic drug monitoring Encounter for therapeutic drug monitoring SI joint arthritis Sacroiliitis, not elsewhere classified documented in this encounter Additional Health Concerns Assessment Noted Time PHQ-9 Depression Total Score: 2 12/06/19 1:06 PM CDT documented as of this encounter Care Teams Lye Peel Operator Relationship Specialty [place] [address] [facility] [address] [place] [address] PCP - General FAMILY PRACTICE 08/11/22 Jordan Castro MD [address] [place] [address] Surgeon ORTHOPAEDIC SURGERY 01/13/20 Akhil Vergara DO [address] [place] [address] INTERNAL MEDICINE 01/02/25 documented as of this encounter
--- OUTSIDE RECORDS SUMMARY | 2025-02-14 14:52 | XMS_ITS | Encounter Summary ---
Author Organization [facility] Address [address] [place] [address] Care Team Providers Care Deputy Sheriff/Investigator Name Role Phone Jordan Castro MD Unavailable [phone] Soila Neumann MD Primary Care Provider [phone] Akhil Vergara DO Unavailable Encounter Details Date Type Department Care Team (Late st Contact Info) Description 02/13/2025 [employer] Message Enc [facility] Family & Internal Medicine [facility] [address] [place] [phone] Soila Neumann MD [address] [place] [address]. [address] [place] [address] Current reading of BNP Do You Agree with advise? Social History Tobacco Use Types Packs/Day Years [...] Sex Assigned at Female 06/28/2021 1:39 PM CONTROL EQUIPMENT ELECTRICIAN Legal Sex Female 3:51 PM CONTROL EQUIPMENT ELECTRICIAN Gender Identity Female 06/28/2021 1:39 PM CONTROL EQUIPMENT ELECTRICIAN Sexual Orientation Straight 06/28/2021 1: 39 PM CONTROL EQUIPMENT ELECTRICIAN Occupation Industry Job Start Date Job End Date RETIRED Not on file Not on file Not on file documented as of this encounter Plan of Treatment Upcoming Encounters Date Type Department Care Team (Latest Contact Info) Description 02/21/2025 9:00 AM CDT Hospital Encounter [facility] Interventional [place] [address] [id number] Carolyn Fernando MD Three [facility] [address] [place] [address] 02/21/2025 9:00 AM CDT - 02/21/2025 9:20 AM CDT Surgery [facility] Interventional Pain [place] [address] [id number] Carolyn Fernando MD Three [facility] [address] [place] [address] BLOCK SACROILIAC JOINT 05/05/2025 1:00 PM CONTROL EQUIPMENT ELECTRICIAN Office Visit [facility] Family & Internal Medicine [address] [address] [place] [address] [place] [phone] 08/15/2025 2:20 PM CONTROL EQUIPMENT ELECTRICIAN Office Visit [facility] Family & Internal Medicine [address] [address] [place] [address] [place] [address] [phone] Scheduled Procedures Name Priority Associated Diagnoses Date/Ti me BLOCK SACROILIAC JOINT SI joint arthritis 02/21/2025 9:00 AM CDT documented as of this encounter Visit Diagnoses Not on filedocumented in this encounter Additional Health Concerns Assessment Noted Time PHQ-9 Depression Total Score: 2 12/06/19 25 1:06 PM CDT documented as of this encounter Care Teams Deputy Sheriff/Investigator Relationship Specialty [place] [address] [address] [place] [address] PCP - General FAMILY PRACTICE 08/11/22 Jordan Castro MD [address] [place], [place] [id number] Surgeon ORTHOPAEDIC SURGERY 01/13/20 Akhil Vergara DO [address] [place] [address] INTERNAL MEDICINE 01/02/25 documented as of this encounter
--- OUTSIDE RECORDS SUMMARY | 2025-02-14 14:52 | XMS_ITS | Encounter Summary ---
Author Organization [facility] Address [address] [place] [address] Care Team Providers Care Multimedia Engineer Name Role Phone Vanessa Ogden MD Primary Care Provider [phone] Jordan Castro MD Unavailable [phone] Soila Neumann MD Primary Care Provider [phone] Akhil Vergara DO Unavailable Encounter Details Date Type Department Care Team (Late st Contact Info) Description 09/07/2020 [employer] Message [facility] [address] [place] [address] [facility] Provider RE:Lab Results Social History Tobacco Use [...] Sex Assigned at Female 06/28/2021 1:39 PM THIRD MILLER Legal Sex Female 3:51 PM THIRD MILLER Gender Identity Female 06/28/2021 1:39 PM THIRD MILLER Sexual Orientation Straight 06/28/2021 1: 39 PM THIRD MILLER COVID-19 Exposure Response Date Recorded In the last month, have you been in contact with someone who was confirmed or suspected to have Coronavirus / COVID-19? No / Unsure 09/10/2020 11:25 AM THIRD MILLER documented as of this encounter Progress Notes * Gilma Barreto RN - 09/07/2020 3:20 PM CST VITAMIN B12 S/P/B 193 - 986 PG/ML 1,054High Does pt need to go to monthly B12 injections instead of weekly like she is doing now? Printed to clarify with provider. D MILLER documented in this encounter Plan of Treatment Upcoming Encounters Date Type Department Care Team (Latest Contact Info) Description 02/21/2025 9:00 AM CDT Hospital Encounter [facility] Interventional [place] [address] [id number] Carolyn Fernando MD Three [facility] [address] [place] [address] 02/21/2025 9:00 AM CDT - 02/21/2025 9:[address] [facility] [place]ventional [place] [address] [id number] Carolyn Fernando MD [facility] [address] [place] [address] BLOCK SACROILIAC JOINT 05/05/2025 1:00 PM THIRD MILLER Office Visit [facility] Medical Group Family & Internal Medicine [address] [address] Soila Neumann MD [address] [place] [address] [phone] 08/15/2025 2:20 PM THIRD MILLER Office Visit [facility] Medical Group Family & Internal Medicine - [place] [address] [place] [address] [place] [address] [address] [place] [address] Scheduled Procedures Name Priority Associated Diagnoses Date/Ti me BLOCK SACROILIAC JOINT SI joint arthritis 02/21/2025 9:00 AM CDT documented as of this encounter Visit Diagnoses Not on filedocumented in this encounter Additional Health Concerns Infection Onset Date Last Indicated Resolved Time COVID-19 Rule Out 09/08/2021 09/08/2021 09/08/2021 10:37 AM THIRD MILLER documented as of this encounter Care Teams Multimedia Engineer Relationship Specialty Start Date End Date Vanessa Ogden MD PCP - General INTERNAL MEDICINE 08/14/18 08/10/22 [place] [address] [address] [place] [address] PCP - General FAMILY PRACTICE 08/11/22 Jordan Castro MD [address] [place] [address] Surgeon ORTHOPAEDIC SURGERY 01/13/20 Akhil Vergara DO [address] [place] [address] INTERNAL MEDICINE 01/02/25 documented as of this encounter
--- OUTSIDE RECORDS SUMMARY | 2025-02-14 14:52 | XMS_ITS | Encounter Summary ---
Author Organization [facility] Address [address] [place] [address] Care Team Providers Care Video Machines Mechanic Name Role Phone Jordan Castro MD Unavailable [phone] Soila Neumann MD Primary Care Provider [phone] Akhil Vergara DO Unavailable Encounter Details Date Type Department Care Team (Late st Contact Info) Description 02/12/2024 [employer] Message Enc [facility] Group Multispecialty Care - [facility] [address] [facility], [address] [place] [address] Dinesh Cruz DO [address] [facility] [address] [place] [address] Recent EDG biopsy Social History Tobacco Use [...] Assigned at Female 06/28/2021 1:39 PM SUPERVISOR DRY CLEANING Legal Sex Female 3:51 PM SUPERVISOR DRY CLEANING Gender Identity Female 06/28/2021 1:39 PM SUPERVISOR DRY CLEANING Sexual Orientation Straight 06/28/2021 1: 39 PM SUPERVISOR DRY CLEANING Occupation Industry Job Start Date Job End Date RETIRED Not on file Not on file Not on file documented as of this encounter Plan of Treatment Upcoming Encounters Date Type Department Care Team (Latest Contact Info) Description 02/21/2025 9:00 AM CDT Hospital Encounter [facility] Interventional [place] [address] [id number] Carolyn Fernando MD Three [facility] [address] [place] [address] 02/21/2025 9:00 AM CDT - 02/21/2025 9:20 AM CDT Surgery [facility] Interventional Pain [place] [address] [id number] Carolyn Fernando MD Three [facility] [address] [place] [address] BLOCK SACROILIAC JOINT 05/05/2025 1:00 PM SUPERVISOR DRY CLEANING Office Visit [facility] Family & Internal [address] [phone] [place] [address] [place] [address] [phone] 08/15/2025 2:20 PM SUPERVISOR DRY CLEANING Office Visit [facility] Family & Internal [address] [address] [place] [address] [place] [address] [phone] Scheduled Procedures Name Priority Associated Diagnoses Date/Ti me BLOCK SACROILIAC JOINT SI joint arthritis 02/21/2025 9:00 AM CDT documented as of this encounter Visit Diagnoses Not on filedocumented in this encounter Additional Health Concerns Assessment Noted Time PHQ-9 Depression Total Score: 2 08/03/19 2:16 PM SUPERVISOR DRY CLEANING documented as of this encounter Care Teams Video Machines Mechanic Relationship Specialty [place] [address] [address] [place] [address] PCP - General FAMILY PRACTICE 08/11/22 Jordan Castro MD [address] [place] [address] Surgeon ORTHOPAEDIC SURGERY 01/13/20 Akhil Vergara DO [address] [place] [address] INTERNAL MEDICINE 01/02/25 documented as of this encounter
--- OUTSIDE RECORDS SUMMARY | 2025-02-14 14:52 | XMS_ITS | Encounter Summary ---
Author Organization [facility] Address [address] [place] [address] Care Team Providers Care Textile Artist Name Role Phone Vanessa Ogden MD Primary Care Provider [phone] Jordan Castro MD Unavailable [phone] Soila Neumann MD Primary Care Provider [phone] Akhil Vergara DO Unavailable Encounter Details Date Type Department Care Team (Late st Contact Info) Description 12/27/2019 [employer] Message Enc [facility] Family & Internal Medicine [facility] [address] [place] [address] [place] [address] [place] [address] RE: Other Social History Tobacco Use Types Packs/Day Years Used Date Smoking Tobacco: Never Smokeless Tobacco: Never Alcohol Use Standard Drinks/Week Comments Yes 0 (1 standard drink = 0.6 oz pur e alcohol) Rare use PHQ-2 Answer Date Recorded PHQ-2 Score 0 09/28/2018 Comments No Sex and Gender Information Value Date Recorded Sex Assigned at Female 06/28/2021 1:39 PM CAMPUS SECURITY OFFICER Legal Sex Female 3:51 PM CAMPUS SECURITY OFFICER Gender Identity Female 06/28/2021 1:39 PM CAMPUS SECURITY OFFICER Sexual Orientation Straight 06/28/2021 1: 39 PM CAMPUS SECURITY OFFICER COVID-19 Exposure Response Date Recorded In the last month, have you been in contact with someone who was confirmed or suspected to have Coronavirus / COVID-19? No / Unsure 12/27/2019 11:09 AM CDT documented as of this encounter Plan of Treatment Upcoming Encounters Date Type Department Care Team (Latest Contact Info) Description 02/21/2025 9:00 AM CDT Hospital Encounter [facility] Interventional [place] [address] [id number] Carolyn Fernando MD Three [facility] [address] [place] [address] 02/21/2025 9:00 AM CDT - 02/21/2025 9:20 AM CDT Surgery [facility] Interventional [place] [address] [id number] Carolyn Fernando MD Three [facility] [address] [place] [address] BLOCK SACROILIAC JOINT 05/05/2025 1:00 PM CAMPUS SECURITY OFFICER Office Visit [facility] Family & Internal Medicine [address] [phone] [place] [address] [facility]. [address] [place] [phone] 08/15/2025 2:20 PM CAMPUS SECURITY OFFICER Office Visit [facility] Family & Internal Medicine [address] [phone] [place] [address] [facility] [employer]. [address] [place] [address] [phone] Scheduled Procedures Name Priority Associated Diagnoses Date/Ti me BLOCK SACROILIAC JOINT SI joint arthritis 02/21/2025 9:00 AM CDT documented as of this encounter Visit Diagnoses Not on filedocumented in this encounter Additional Health Concerns Infection Onset Date Last Indicated Resolved Time COVID-19 Rule Out 09/08/2021 09/08/2021 09/08/2021 10:37 AM CAMPUS SECURITY OFFICER documented as of this encounter Care Teams Textile Artist Relationship Specialty Start Date End Date Vanessa Ogden MD PCP - General INTERNAL MEDICINE 08/14/18 08/10/22 [place] [address] [facility]. [address] [place] [address] PCP - General FAMILY PRACTICE 08/11/22 Jordan Castro MD [address] [facility] [address] [place], [place] [id number] Surgeon ORTHOPAEDIC SURGERY 01/13/20 Akhil Vergara DO [address] [place] [address] INTERNAL MEDICINE 01/02/25 documented as of this encounter
--- OUTSIDE RECORDS SUMMARY | 2025-02-14 14:52 | XMS_ITS | Encounter Summary ---
Author Organization [facility] Address Formerly [facility] [place] [address] Care Team Providers Care Bread Wrapping Machine Feeder Name Role Phone Jordan Castro MD Unavailable [phone] Soila Neumann MD Primary Care Provider [phone] Akhil Vergara DO Unavailable Encounter Details Date Type Department Care Team (Late st Contact Info) Description 12/28/2022 Sonarworkshart Message Enc [facility] - [facility] [address] [place], [place] [address] [employer], [facility] Provider Air Quality Message Social History Tobacco [...] Sex Assigned at Female 06/28/2021 1:39 PM KICK PRESS SETTER Legal Sex Female 3:51 PM KICK PRESS SETTER Gender Identity Female 06/28/2021 1:39 PM KICK PRESS SETTER Sexual Orientation Straight 06/28/2021 1: 39 PM KICK PRESS SETTER Occupation Industry Job Start Date Job End Date RETIRED Not on file Not on file Not on file COVID-19 Exposure Response Date Recorded In the last 10 days, have se u been in contact with someone who was confirmed or suspected to have Coronavirus/COVID-19? No / Unsure 12/12/2022 2:27 PM CDT documented as of this encounter Plan of Treatment Upcoming Encounters Date Type Department Care Team (Latest Contact Info) Description 02/21/2025 9:00 AM CDT Hospital Encounter [facility] Interventional [place] [address] [id number] Carolyn Fernando MD Three [facility] [address] [place] [address] 02/21/2025 9:00 AM CDT - 02/21/2025 9:[address] [facility] Interventional Pain [place] [address] [id number] Carolyn Fernando MD Three [facility] [address] [place] [address] BLOCK SACROILIAC JOINT 05/05/2025 1:00 PM KICK PRESS SETTER Office Visit [facility] Family & Internal Medicine [address] [phone] [place] [address] [place] [address] [phone] 08/15/2025 2:20 PM KICK PRESS SETTER Office Visit [facility] Family & Internal [address] [address] [place] [address] [address] [place] [address] [phone] Scheduled Procedures Name Priority Associated Diagnoses Date/Ti me BLOCK SACROILIAC JOINT SI joint arthritis 02/21/2025 9:00 AM CDT documented as of this encounter Visit Diagnoses Not on filedocumented in this encounter Additional Health Concerns Assessment Noted Time PHQ-9 Depression Total Score: 2 08/03/19 23 2:16 PM KICK PRESS SETTER documented as of this encounter Care Teams Bread Wrapping Machine Feeder Relationship Specialty [place] [address] [facility]. [address] [place] [address] PCP - General FAMILY PRACTICE 08/11/22 Jordan Castro MD [address] [place] [address] Surgeon ORTHOPAEDIC SURGERY 01/13/20 Akhil Vergara DO [address] [place] [address] INTERNAL MEDICINE 01/02/25 documented as of this encounter
--- OUTSIDE RECORDS SUMMARY | 2025-02-14 14:52 | XMS_ITS | Encounter Summary ---
Author Organization [facility] Address [address] [place] [address] Care Team Providers Care Alumni Relations Manager Name Role Phone Jordan Castro MD Unavailable Soila Neumann MD Primary Care Provider [phone] Akhil Vergara DO Unavailable Encounter Details Date Type Department Care Team (Late st Contact Info) Description 07/24/2023 SanTásti Message Enc [facility] Family [facility] Internal Medicine [facility] [phone] [place] [phone] Soila Neumann MD [address] [place] [address]. [address] [place] [address] todays appointment Social History Tobacco Use [...] Assigned at Female 06/28/2021 1:39 PM HAND BRUSH FILLER Legal Sex Female 3:51 PM HAND BRUSH FILLER Gender Identity Female 06/28/2021 1:39 PM HAND BRUSH FILLER Sexual Orientation Straight 06/28/2021 1: 39 PM HAND BRUSH FILLER Occupation Industry Job Start Date Job End Date RETIRED Not on file Not on file Not on file documented as of this encounter Progress Notes * Gilma Barreto RN - 07/25/2023 8:36 AM CST Pt was rescheduled to today due to weather BRUSH FILLER documented in this encounter Plan of Treatment Upcoming Encounters Date Type Department Care Team (Latest Contact Info) Description 02/21/2025 9:00 AM CDT Hospital Encounter [facility] Interventional [place] [address] [id number] Carolyn Fernando MD Three [facility] [address] [place] [address] 02/21/2025 9:00 AM CDT - 02/21/2025 9:20 AM CDT Surgery [facility] [place]ventional [place] [address] [id number] Carolyn Fernando MD Three [address] [address] BLOCK SACROILIAC JOINT 05/05/2025 1:00 PM HAND BRUSH FILLER Office Visit [facility] Family & Internal Medicine [address] [phone] Soila Neumann MD [address] [place] [address] [phone] 08/15/2025 2:20 PM HAND BRUSH FILLER Office Visit [facility] Family & Internal Medicine [address] [phone] [place] [address] [address] [place] [address] Scheduled Procedures Name Priority Associated Diagnoses Date/Ti me BLOCK SACROILIAC JOINT SI joint arthritis 02/21/2025 9:00 AM CDT documented as of this encounter Visit Diagnoses Not on filedocumented in this encounter Additional Health Concerns Assessment Noted Time PHQ-9 Depression Total Score: 2 08/03/19 23 2:16 PM HAND BRUSH FILLER documented as of this encounter Care Teams Alumni Relations Manager Relationship Specialty [place] [address] [address] [place] [address] PCP - General FAMILY PRACTICE 08/11/22 Jordan Castro MD [address] [place] [address] Surgeon ORTHOPAEDIC SURGERY 01/13/20 Akhil Vergara DO [address] [place] [address] INTERNAL MEDICINE 01/02/25 documented as of this encounter
--- OUTSIDE RECORDS SUMMARY | 2025-02-14 14:52 | XMS_ITS | Encounter Summary ---
Author Organization [facility] Address [address] [place] [address] Care Team Providers Care Molecular Biology Scientist Name Role Phone Vanessa Ogden MD Primary Care Provider [phone] Jordan Castro MD Unavailable [phone] Soila Neumann MD Primary Care Provider [phone] Akhil Vergara DO Unavailable Encounter Details Date Type Department Care Team (Late st Contact Info) Description 06/19/2020 [employer] Message Enc [facility] Family & Internal Medicine [facility] [address] [place] [address] [place] [id number] [place] [address] RE: Follow Up/Update Social History Tobacco Use Types Packs/Day Years Used Date Smoking Tobacco: Never Smokeless Tobacco: Never Alcohol Use Standard Drinks/Week Comments Yes 0 (1 standard drink = 0.6 oz pur e alcohol) Rare use PHQ-2 Answer Date Recorded PHQ-2 Score 0 09/28/2018 Comments No Sex and Gender Information Value Date Recorded Sex Assigned at Female 06/28/2021 1:39 PM ROUGHER HELPER Legal Sex Female 3:51 PM ROUGHER HELPER Gender Identity Female 06/28/2021 1:39 PM ROUGHER HELPER Sexual Orientation Straight 06/28/2021 1: 39 PM ROUGHER HELPER COVID-19 Exposure Response Date Recorded In the last month, have you been in contact with someone who was confirmed or suspected to have Coronavirus / COVID-19? No / Unsure 05/25/2020 3:08 PM ROUGHER HELPER documented as of this encounter Plan of Treatment Upcoming Encounters Date Type Department Care Team (Latest Contact Info) Description 02/21/2025 9:00 AM CDT Hospital Encounter [facility] Interventional Pain [place] [address] [id number] Carolyn Fernando MD Three [facility] [address] [place] [address] 02/21/2025 9:00 AM CDT - 02/21/2025 9:20 AM CDT Surgery [facility] Interventional Pain [place] [address] [id number] Carolyn Fernando MD Three [facility] [address] [place] [address] BLOCK SACROILIAC JOINT 05/05/2025 1:00 PM ROUGHER HELPER Office Visit [facility] Family & Internal Medicine [address] [phone] [place] [address] [facility]. [address] [place] [address] 08/15/2025 2:20 PM ROUGHER HELPER Office Visit [facility] Family & Internal Medicine [address] [phone] [place] [address] [facility]. [address] [place] [address] [phone] Scheduled Procedures Name Priority Associated Diagnoses Date/Ti me BLOCK SACROILIAC JOINT SI joint arthritis 02/21/2025 9:00 AM CDT documented as of this encounter Visit Diagnoses Not on filedocumented in this encounter Additional Health Concerns Infection Onset Date Last Indicated Resolved Time COVID-19 Rule Out 09/08/2021 09/08/2021 09/08/2021 10:37 AM ROUGHER HELPER documented as of this encounter Care Teams Molecular Biology Scientist Relationship Specialty Start Date End Date Vanessa Ogden MD PCP - General INTERNAL MEDICINE 08/14/18 08/10/22 [place] [address] [facility]. [address] [place] [address] PCP - General FAMILY PRACTICE 08/11/22 Jordan Castro MD [address] [facility] [address] [place], [place] [id number] Surgeon ORTHOPAEDIC SURGERY 01/13/20 Akhil Vergara DO [address] [place] [address] INTERNAL MEDICINE 01/02/25 documented as of this encounter
--- OUTSIDE RECORDS SUMMARY | 2025-02-14 14:52 | XMS_ITS | Encounter Summary ---
Author Organization [facility] Address [address] [place] [address] Care Team Providers Care Industrial Engineering Technician Name Role Phone Vanessa Ogden MD Primary Care Provider [phone] Jordan Castro MD Unavailable [phone] Soila Neumann MD Primary Care Provider [phone] Akhil Vergara DO Unavailable Encounter Details Date Type Department Care Team (Latest Contact Info) Description 04/18/2022 Altar Message Enc [facility] Medical Group Family & Internal Medicine [facility] [address] [place] [address] [place] [address] [place] [address] Persons with Disabilities Certification Social [...] Sex Assigned at Female 06/28/2021 1:39 PM BIT TRIPOLER Legal Sex Female 3:51 PM BIT TRIPOLER Gender Identity Female 06/28/2021 1:39 PM BIT TRIPOLER Sexual Orientation Straight 06/28/2021 1: 39 PM BIT TRIPOLER Occupation Industry Job Start Date Job End [...] for a temporary placard. Can also contact ortho for one as well. * Bety Van RN - 04/18/2022 4:44 PM CDT Please advise documented in this encounter Plan of Treatment Upcoming Encounters Date Type Department Care Team (Latest Contact Info) Description 02/21/2025 9:00 AM CDT Hospital Encounter [facility] Interventional Pain [place] [address] [phone] Carolyn Fernando MD Three [facility] [address] [place] [address] 02/21/2025 9:00 AM CDT - 02/21/2025 9:20 AM CDT Surgery [facility] Interventional Pain [place] [address] [id number] Carolyn Fernando MD Three [facility] [address] [place] [address] BLOCK SACROILIAC JOINT 05/05/2025 1:00 PM BIT TRIPOLER Office Visit [facility] Family & Internal Medicine [facility] [address] [place] [phone] [place] [address] [place] [address] 08/15/2025 2:20 PM BIT TRIPOLER Office Visit [facility] Family & Internal [facility] [address] [place] [phone] [place] [address] [place] [address] [phone] Scheduled Procedures Name Priority Associated Diagnoses Date/Ti me BLOCK SACROILIAC JOINT SI joint arthritis 02/21/2025 9:00 AM CDT documented as of this encounter Visit Diagnoses Not on filedocumented in this encounter Additional Health Concerns Assessment Noted Time PHQ-9 Depression Total Score: 3 09/09/19 22 9:29 AM BIT TRIPOLER documented as of this encounter Care Teams Industrial Engineering Technician Relationship Specialty Start Date End Date Vanessa Ogden MD PCP - General INTERNAL MEDICINE 08/14/18 08/10/22 [place] [address] [place] [address] [phone] PCP - General FAMILY PRACTICE 08/11/22 Jordan Castro MD [address] [place] [address] Surgeon ORTHOPAEDIC SURGERY 01/13/20 Akhil Vergara DO [address] [place] [address] INTERNAL MEDICINE 01/02/25 documented as of this encounter
--- OUTSIDE RECORDS SUMMARY | 2025-02-14 14:52 | XMS_ITS | Encounter Summary ---
Author Organization [facility] Address [address] [place] [address] Care Team Providers Care Overlocker Name Role Phone Jordan Castro MD Unavailable [phone] Soila Neumann MD Primary Care Provider [phone] Akhil Vergara DO Unavailable Encounter Details Date Type Department Care Team (Late st Contact Info) Description 06/22/2023 Eptica Message Enc [facility] Medical Group Family & Internal Medicine [facility] [address] [place] [phone] Soila Neumann MD [address] [place] [address]. [address] [place] [address] Referral Social History Tobacco Use Types [...] Sex Assigned at Female 06/28/2021 1:39 PM REGULATORY ATTORNEY Legal Sex Female 3:51 PM REGULATORY ATTORNEY Gender Identity Female 06/28/2021 1:39 PM REGULATORY ATTORNEY Sexual Orientation Straight 06/28/2021 1: 39 PM REGULATORY ATTORNEY Occupation Industry Job Start Date Job End Date RETIRED Not on file Not on file Not on file documented as of this encounter Plan of Treatment Upcoming Encounters Date Type Department Care Team (Latest Contact Info) Description 02/21/2025 9:00 AM CDT Hospital Encounter [facility] Interventional [place] [address] [id number] Carolyn Fernando MD Three [facility] [address] [place] [address] 02/21/2025 9:00 AM CDT - 02/21/2025 9:20 AM CDT Surgery [facility] Interventional Pain [place] [address] [id number] Carolyn Fernando MD Three [facility] [address] [place] [address] BLOCK SACROILIAC JOINT 05/05/2025 1:00 PM REGULATORY ATTORNEY Office Visit [facility] Family & Internal Medicine [address] [phone] [place] [address] [address] [place] [address] [phone] 08/15/2025 2:20 PM REGULATORY ATTORNEY Office Visit [facility] Family & Internal Medicine [address] [phone] [place] [address] [address] [place] [address] [phone] Scheduled Procedures Name Priority Associated Diagnoses Date/Ti me BLOCK SACROILIAC JOINT SI joint arthritis 02/21/2025 9:00 AM CDT documented as of this encounter Visit Diagnoses Not on filedocumented in this encounter Additional Health Concerns Assessment Noted Time PHQ-9 Depression Total Score: 2 08/03/19 2:16 PM REGULATORY ATTORNEY documented as of this encounter Care Teams Overlocker Relationship Specialty [place] [address] [facility]. [address] [place] [address] PCP - General FAMILY PRACTICE 08/11/22 Jordan Castro MD [address] [place], [place] [id number] Surgeon ORTHOPAEDIC SURGERY 01/13/20 Akhil Vergara DO [address] [place] [address] INTERNAL MEDICINE 01/02/25 documented as of this encounter
--- OUTSIDE RECORDS SUMMARY | 2025-02-14 14:52 | XMS_ITS | Encounter Summary ---
Author Organization [facility] Address [address] [place] [address] Care Team Providers Care Entry Level Paralegal Name Role Phone Vanessa Ogden MD Primary Care Provider [phone] Jordan Castro MD Unavailable [phone] Soila Neumann MD Primary Care Provider [phone] Akhil Vergara DO Unavailable Encounter Details Date Type Department Care Team (Late st Contact Info) Description 06/02/2020 KoolLearning Message Enc [facility] Medical Group Family & Internal Medicine [facility] [address] [place] [address] [place] Ogden [place] [address] [place] [address] RE: Question Social History Tobacco Use Types Packs/Day Years Used Date Smoking Tobacco: Never Smokeless Tobacco: Never Alcohol Use Standard Drinks/Week Comments Yes 0 (1 standard drink = 0.6 oz pur e alcohol) Rare use PHQ-2 Answer Date Recorded PHQ-2 Score 0 09/28/2018 Comments No Sex and Gender Information Value Date Recorded Sex Assigned at Female 06/28/2021 1:39 PM BUCKET PUSHER Legal Sex Female 3:51 PM BUCKET PUSHER Gender Identity Female 06/28/2021 1:39 PM BUCKET PUSHER Sexual Orientation Straight 06/28/2021 1: 39 PM BUCKET PUSHER COVID-19 Exposure Response Date Recorded In the last month, have you been in contact with someone who was confirmed or suspected to have Coronavirus / COVID-19? No / Unsure 05/25/2020 3:08 PM BUCKET PUSHER documented as of this encounter Plan of Treatment Upcoming Encounters Date Type Department Care Team (Latest Contact Info) Description 02/21/2025 9:00 AM CDT Hospital Encounter [facility] Interventional Pain [place] [address] [id number] Carolyn Fernando MD Three [facility] [address] [place] [address] 02/21/2025 9:00 AM CDT - 02/21/2025 9:20 AM CDT Surgery [facility] Interventional Pain [place] [address] [id number] Carolyn Fernando MD Three [facility] [address] [place] [address] BLOCK SACROILIAC JOINT 05/05/2025 1:00 PM BUCKET PUSHER Office Visit [facility] Family & Internal Medicine [address] [phone] [place] [address] [facility] [employer] [place] [address] 08/15/2025 2:20 PM BUCKET PUSHER Office Visit [facility] Family & Internal Medicine [address] [phone] [place] [address] [facility] [address] [place] [address] Scheduled Procedures Name Priority Associated Diagnoses Date/Ti me BLOCK SACROILIAC JOINT SI joint arthritis 02/21/2025 9:00 AM CDT documented as of this encounter Visit Diagnoses Not on filedocumented in this encounter Additional Health Concerns Infection Onset Date Last Indicated Resolved Time COVID-19 Rule Out 09/08/2021 09/08/2021 09/08/2021 10:37 AM BUCKET PUSHER documented as of this encounter Care Teams Entry Level Paralegal Relationship Specialty Start Date End Date Vanessa Ogden MD PCP - General INTERNAL MEDICINE 08/14/18 08/10/22 [place] [address] [facility] [place] [address] PCP - General FAMILY PRACTICE 08/11/22 Jordan Castro MD [address] [facility] [address] [place] [address] Surgeon ORTHOPAEDIC SURGERY 01/13/20 Akhil Vergara DO [address] [place] [address] INTERNAL MEDICINE 01/02/25 documented as of this encounter
--- OUTSIDE RECORDS SUMMARY | 2025-02-14 14:52 | XMS_ITS | Encounter Summary ---
Author Organization [facility] Address [address] [place] [address] Care Team Providers Care Tray Casting Machine Operator Name Role Phone Jordan Castro MD Unavailable [phone] Soila Neumann MD Primary Care Provider [phone] Akhil Vergara DO Unavailable Encounter Details Date Type Department Care Team (Late st Contact Info) Description 09/13/2022 dloHaitit Message Enc [facility] Medical Group Family & Internal Medicine [facility] [phone] [place] [phone] Vanessa Ogden MD [address] [place] [address] Vergara/heart monitor Social History Tobacco Use [...] Sex Assigned at Female 06/28/2021 1:39 PM ELECTRODYNAMICIST Legal Sex Female 3:51 PM ELECTRODYNAMICIST Gender Identity Female 06/28/2021 1:39 PM ELECTRODYNAMICIST Sexual Orientation Straight 06/28/2021 1: 39 PM ELECTRODYNAMICIST Occupation Industry Job Start Date Job End Date RETIRED Not on file Not on file Not on file documented as of this encounter Plan of Treatment Upcoming Encounters Date Type Department Care Team (Latest Contact Info) Description 02/21/2025 9:00 AM CDT Hospital Encounter [facility] Interventional [place] [address] [id number] Carolyn Fernando MD Three [facility] [address] [place] [address] 02/21/2025 9:00 AM CDT - 02/21/2025 9:20 AM CDT Surgery [facility] Interventional Pain [place] [address] [id number] Carolyn Fernando MD Three [facility] [address] [place] [address] BLOCK SACROILIAC JOINT 05/05/2025 1:00 PM ELECTRODYNAMICIST Office Visit [facility] Family & Internal Medicine [address] [phone] [place] [address] [address] [place] [address] [phone] 08/15/2025 2:20 PM ELECTRODYNAMICIST Office Visit [facility] Family & Internal Medicine [address] [phone] [place] [address] [address] [place] [address] Scheduled Procedures Name Priority Associated Diagnoses Date/Ti me BLOCK SACROILIAC JOINT SI joint arthritis 02/21/2025 9:00 AM CDT documented as of this encounter Visit Diagnoses Not on filedocumented in this encounter Additional Health Concerns Assessment Noted Time PHQ-9 Depression Total Score: 2 08/03/19 23 2:16 PM ELECTRODYNAMICIST documented as of this encounter Care Teams Tray Casting Machine Operator Relationship Specialty [place] [address] [facility] [place] [address] PCP - General FAMILY PRACTICE 08/11/22 Jordan Castro MD [address] [place] [address] Surgeon ORTHOPAEDIC SURGERY 01/13/20 Akhil Vergara DO [address] [place] [address] INTERNAL MEDICINE 01/02/25 documented as of this encounter
--- OUTSIDE RECORDS SUMMARY | 2025-02-14 14:52 | XMS_ITS | Encounter Summary ---
Author Organization [facility] Address [address] [place] [address] Care Team Providers Care Heating And Refrigeration Inspector Name Role Phone Jordan Castro MD Unavailable [phone] Soila Neumann MD Primary Care Provider [phone] Akhil Vergara DO Unavailable Encounter Details Date Type Department Care Team (Late st Contact Info) Description 08/14/2023 SynergEyes Message Enc [facility] Medical Group Family & Internal Medicine [facility] [address] [place] [address] Soila Neumann MD [address] [place] [address]. [address] [place] [address] Endoscopy referral Social History Tobacco [...] Sex Assigned at Female 06/28/2021 1:39 PM DRY WALL SPRAYER Legal Sex Female 3:51 PM DRY WALL SPRAYER Gender Identity Female 06/28/2021 1:39 PM DRY WALL SPRAYER Sexual Orientation Straight 06/28/2021 1: 39 PM DRY WALL SPRAYER Occupation Industry Job Start Date Job End Date RETIRED Not on file Not on file Not on file documented as of this encounter Plan of Treatment Upcoming Encounters Date Type Department Care Team (Latest Contact Info) Description 02/21/2025 9:00 AM CDT Hospital Encounter [facility] Inter[facility] [place] [address] [id number] Carolyn Fernando MD Three [facility] [address] [place] [address] 02/21/2025 9:00 AM CDT - 02/21/2025 9:[address] [facility] Interventional Pain [place] [address] [id number] Carolyn Fernando MD Three [facility] [address] [place] [address] BLOCK SACROILIAC JOINT 05/05/2025 1:00 PM DRY WALL SPRAYER Office Visit [facility] [address] [phone] [place] [address] [address] [place] [address] [phone] 08/15/2025 2:20 PM DRY WALL SPRAYER Office Visit [facility] [address] [address] [place] [address] [address] [place] [address] Scheduled Procedures Name Priority Associated Diagnoses Date/Ti me BLOCK SACROILIAC JOINT SI joint arthritis 02/21/2025 9:00 AM CDT documented as of this encounter Visit Diagnoses Not on filedocumented in this encounter Additional Health Concerns Assessment Noted Time PHQ-9 Depression Total Score: 2 08/03/19 23 2:16 PM DRY WALL SPRAYER documented as of this encounter Care Teams Heating And Refrigeration Inspector Relationship Specialty [place] [address] [facility]. [address] [place] [address] PCP - General FAMILY PRACTICE 08/11/22 Jordan Castro MD [address] [place] [address] Surgeon ORTHOPAEDIC SURGERY 01/13/20 Akhil Vergara DO [address] [place] [address] INTERNAL MEDICINE 01/02/25 documented as of this encounter
--- OUTSIDE RECORDS SUMMARY | 2025-02-14 14:52 | XMS_ITS | Encounter Summary ---
Author Organization [facility] Address [address] [place] [address] Care Team Providers Care Home Health Aide Caregiver Name Role Phone Vanessa Ogden MD Primary Care Provider [phone] Jordan Castro MD Unavailable [phone] Soila Neumann MD Primary Care Provider Akhil Vergara DO Unavailable Encounter Details Date Type Department Care Team (Late st Contact Info) Description 02/21/2020 Nginx Message Enc [facility] Medical Group Family & Internal Medicine [facility] [address] [place] [address] [place] [address] [place] [address] RE: Test Results Social History Tobacco Use Types Packs/Day Years Used Date Smoking Tobacco: Never Smokeless Tobacco: Never Alcohol Use Standard Drinks/Week Comments Yes 0 (1 standard drink = 0.6 oz pur e alcohol) Rare use PHQ-2 Answer Date Recorded PHQ-2 Score 0 09/28/2018 Comments No Sex and Gender Information Value Date Recorded Sex Assigned at Female 06/28/2021 1:39 PM DIRECTOR MICROBIOLOGY Legal Sex Female 3:51 PM DIRECTOR MICROBIOLOGY Gender Identity Female 06/28/2021 1:39 PM DIRECTOR MICROBIOLOGY Sexual Orientation Straight 06/28/2021 1: 39 PM DIRECTOR MICROBIOLOGY COVID-19 Exposure Response Date Recorded In the last month, have you been in contact with someone who was confirmed or suspected to have Coronavirus / COVID-19? No / Unsure 02/21/2020 3:15 PM CDT documented as of this encounter Plan of Treatment Upcoming Encounters Date Type Department Care Team (Latest Contact Info) Description 02/21/2025 9:00 AM CDT Hospital Encounter [facility] Interventional Pain [place] [address] [id number] Carolyn Fernando MD Three [facility] [address] [place] [address] 02/21/2025 9:00 AM CDT - 02/21/2025 9:20 AM CDT Surgery [facility] Interventional Pain [place] [address] [id number] Carolyn Fernando MD Three [facility] [address] [place] [address] BLOCK SACROILIAC JOINT 05/05/2025 1:00 PM DIRECTOR MICROBIOLOGY Office Visit [facility] [address] [address] [place] [address] [facility]. [address] [place] [address] [phone] 08/15/2025 2:20 PM DIRECTOR MICROBIOLOGY Office Visit [facility] [address] [address] [place] [address] [facility]. [address] [place] [address] [phone] Scheduled Procedures Name Priority Associated Diagnoses Date/Ti me BLOCK SACROILIAC JOINT SI joint arthritis 02/21/2025 9:00 AM CDT documented as of this encounter Visit Diagnoses Not on filedocumented in this encounter Additional Health Concerns Infection Onset Date Last Indicated Resolved Time COVID-19 Rule Out 09/08/2021 09/08/2021 09/08/2021 10:37 AM DIRECTOR MICROBIOLOGY documented as of this encounter Care Teams Home Health Aide Caregiver Relationship Specialty Start Date End Date Vanessa Ogden MD PCP - General INTERNAL MEDICINE 08/14/18 08/10/22 [place] [address] [facility]. [address] [place] [address] PCP - General FAMILY PRACTICE 08/11/22 Jordan Castro MD [address] [place], [place] [phone] Surgeon ORTHOPAEDIC SURGERY 01/13/20 Akhil Vergara DO [address] [place] [address] INTERNAL MEDICINE 01/02/25 documented as of this encounter
--- OUTSIDE RECORDS SUMMARY | 2025-02-14 14:52 | XMS_ITS | Encounter Summary ---
Author Organization [facility] Address [address] [place] [address] Care Team Providers Care Glassie Name Role Phone Vanessa Ogden MD Primary Care Provider [phone] Jordan Castro MD Unavailable [phone] Soila Neumann MD Primary Care Provider [phone] Akhil Vergara DO Unavailable Encounter Details Date Type Department Care Team (Late st Contact Info) Description 06/02/2020 Vidiowiki Message Enc [facility] Medical Group Family & Internal Medicine [facility] [address] [place] [address] [place] Og[place] [address] [place] [address] Referral Request Social History Tobacco Use Types Packs/Day Years Used Date Smoking Tobacco: Never Smokeless Tobacco: Never Alcohol Use Standard Drinks/Week Comments Yes 0 (1 standard drink = 0.6 oz pur e alcohol) Rare use PHQ-2 Answer Date Recorded PHQ-2 Score 0 09/28/2018 Comments No Sex and Gender Information Value Date Recorded Sex Assigned at Female 06/28/2021 1:39 PM BUILD AND RELEASE MANAGER Legal Sex Female 3:51 PM BUILD AND RELEASE MANAGER Gender Identity Female 06/28/2021 1:39 PM BUILD AND RELEASE MANAGER Sexual Orientation Straight 06/28/2021 1: 39 PM BUILD AND RELEASE MANAGER COVID-19 Exposure Response Date Recorded In the last month, have you been in contact with someone who was confirmed or suspected to have Coronavirus / COVID-19? No / Unsure 05/25/2020 3:08 PM BUILD AND RELEASE MANAGER documented as of this encounter Progress Notes * Porsha Manzo - 06/09/2020 10:32 AM CST We will get this rerouted and contact the patient. Thank you! D AND RELEASE MANAGER documented in this encounter Plan of Treatment Upcoming Encounters Date Type Department Care Team (Latest Contact Info) Description 02/21/2025 9:00 AM CDT Hospital Encounter [facility] Interventional [facility] [place] [address] [id number] Carolyn Fernando MD Three [facility] [address] [place] [address] 02/21/2025 9:00 AM CDT - 02/21/2025 9:20 AM CDT Surgery [facility] Interventional [facility] [place] [address] [id number] Carolyn Fernando MD Three [facility] [address] [place] [address] BLOCK SACROILIAC JOINT 05/05/2025 1:00 PM BUILD AND RELEASE MANAGER Office Visit [facility] [address] [address] [place] [address] [place] [address] [phone] 08/15/2025 2:20 PM BUILD AND RELEASE MANAGER Office Visit [facility] [address] [address] [place] [address] [place] [address] Scheduled Procedures Name Priority Associated Diagnoses Date/Ti me BLOCK SACROILIAC JOINT SI joint arthritis 02/21/2025 9:00 AM CDT documented as of this encounter Visit Diagnoses Not on filedocumented in this encounter Additional Health Concerns Infection Onset Date Last Indicated Resolved Time COVID-19 Rule Out 09/08/2021 09/08/2021 09/08/2021 10:37 AM BUILD AND RELEASE MANAGER documented as of this encounter Care Teams Glassie Relationship Specialty Start Date End Date Vanessa Ogden MD PCP - General INTERNAL MEDICINE 08/14/18 08/10/22 [place] [address] [facility] [address] [place] [address] PCP - General FAMILY PRACTICE 08/11/22 Jordan Castro MD [address] [place], [place] [id number] Surgeon ORTHOPAEDIC SURGERY 01/13/20 Akhil Vergara DO [address] [place] [address] INTERNAL MEDICINE 01/02/25 documented as of this encounter
--- OUTSIDE RECORDS SUMMARY | 2025-02-14 14:52 | XMS_ITS | Encounter Summary ---
Author Organization [facility] Address [address] [place] [address] Care Team Providers Care Ocular Pathologist Name Role Phone Jordan Castro MD Unavailable [phone] Soila Neumann MD Primary Care Provider Akhil Vergara DO Unavailable Encounter Details Date Type Department Care Team (Late st Contact Info) Description 08/12/2022 ConnectSolutions Message Enc [facility] Medical Group Family & Internal Medicine [facility] [address] [place] [address] Vanessa Ogden MD [address] [place] [address] Referral Social History Tobacco Use Types Packs/Day [...] Sex Assigned at Female 06/28/2021 1:39 PM PATIENT ADMITTING CLERK Legal Sex Female 3:51 PM PATIENT ADMITTING CLERK Gender Identity Female 06/28/2021 1:39 PM PATIENT ADMITTING CLERK Sexual Orientation Straight 06/28/2021 1: 39 PM PATIENT ADMITTING CLERK Occupation Industry Job Start Date Job End Date RETIRED Not on file Not on file Not on file COVID-19 Exposure Response Date Recorded In the last 10 days, have yo u been in contact with someone who was confirmed or suspected to have Coronavirus/COVID-19? No / Unsure 08/03/2022 1:31 PM PATIENT ADMITTING CLERK documented as of this encounter Plan of Treatment Upcoming Encounters Date Type Department Care Team (Latest Contact Info) Description 02/21/2025 9:00 AM CDT Hospital Encounter [facility] Interventional [place] [address] [id number] Carolyn Fernando MD Three [facility] [address] [place] [address] 02/21/2025 9:00 AM CDT - 02/21/2025 9:20 AM CDT Surgery [facility] Interventional [place] [address] [id number] Carolyn Fernando MD Three [facility] [address] [place] [address] BLOCK SACROILIAC JOINT 05/05/2025 1:00 PM PATIENT ADMITTING CLERK Office Visit [facility] Family & Internal Medicine [address] [address] [place] [address] [place] [address] 08/15/2025 2:20 PM PATIENT ADMITTING CLERK Office Visit [facility] Family & Internal Medicine [address] [address] [place] [address] [place] [address] Scheduled Procedures Name Priority Associated Diagnoses Date/Ti me BLOCK SACROILIAC JOINT SI joint arthritis 02/21/2025 9:00 AM CDT documented as of this encounter Visit Diagnoses Not on filedocumented in this encounter Additional Health Concerns Assessment Noted Time PHQ-9 Depression Total Score: 2 08/03/19 23 2:16 PM PATIENT ADMITTING CLERK documented as of this encounter Care Teams Ocular Pathologist Relationship Specialty [place] [address] [address] [place] [address] PCP - General FAMILY PRACTICE 08/11/22 Jordan Castro MD [address] [place] [address] Surgeon ORTHOPAEDIC SURGERY 01/13/20 Akhil Vergara DO [address] [place] [address] INTERNAL MEDICINE 01/02/25 documented as of this encounter
--- OUTSIDE RECORDS SUMMARY | 2025-02-14 14:52 | XMS_ITS | Encounter Summary ---
Author Organization [facility] Address [address] [place] [address] Care Team Providers Care Psychopaedic Nurse Name Role Phone Vanessa Ogden MD Primary Care Provider [phone] Jordan Castro MD Unavailable [phone] Soila Neumann MD Primary Care Provider [phone] Akhil Vergara DO Unavailable Encounter Details Date Type Department Care Team (Late st Contact Info) Description 06/08/2020 Web[employer] International Message Enc [facility] Medical Group Family & Internal Medicine [address] [address] [facility] Provider RE:Appointment Social History Tobacco Use Types Packs/Day Years Used Date Smoking Tobacco: Never Smokeless Tobacco: Never Alcohol Use Standard Drinks/Week Comments Yes 0 (1 standard drink = 0.6 oz pur e alcohol) Rare use PHQ-2 Answer Date Recorded PHQ-2 Score 0 09/28/2018 Comments No Sex and Gender Information Value Date Recorded Sex Assigned at Female 06/28/2021 1:39 PM EXAMINATION GRADER Legal Sex Female 3:51 PM EXAMINATION GRADER Gender Identity Female 06/28/2021 1:39 PM EXAMINATION GRADER Sexual Orientation Straight 06/28/2021 1: 39 PM EXAMINATION GRADER COVID-19 Exposure Response Date Recorded In the last month, have you been in contact with someone who was confirmed or suspected to have Coronavirus / COVID-19? No / Unsure 05/25/2020 3:08 PM EXAMINATION GRADER documented as of this encounter Plan of Treatment Upcoming Encounters Date Type Department Care Team (Latest Contact Info) Description 02/21/2025 9:00 AM CDT Hospital Encounter [facility] Interventional [place] [address] [id number] Carolyn Fernando MD Three [facility] [address] [place] [address] 02/21/2025 9:00 AM CDT - 02/21/2025 9:20 AM CDT Surgery [facility] Interventional [place] [address] [id number] Carolyn Fernando MD Three [facility] [address] [place] [address] BLOCK SACROILIAC JOINT 05/05/2025 1:00 PM EXAMINATION GRADER Office Visit [facility] Family & Internal Medicine [address] [phone] [place] [address] [facility] [place] [address] 08/15/2025 2:20 PM EXAMINATION GRADER Office Visit [facility] Family & Internal [address] [phone] [place] [address] [facility]. [address] [place] [address] Scheduled Procedures Name Priority Associated Diagnoses Date/Ti me BLOCK SACROILIAC JOINT SI joint arthritis 02/21/2025 9:00 AM CDT documented as of this encounter Visit Diagnoses Not on filedocumented in this encounter Additional Health Concerns Infection Onset Date Last Indicated Resolved Time COVID-19 Rule Out 09/08/2021 09/08/2021 09/08/2021 10:37 AM EXAMINATION GRADER documented as of this encounter Care Teams Psychopaedic Nurse Relationship Specialty Start Date End Date Vanessa Ogden MD PCP - General INTERNAL MEDICINE 08/14/18 08/10/22 [place] [address] [facility]. [address] [place], [place] [phone] PCP - General FAMILY PRACTICE 08/11/22 Jordan Castro MD [address] [place] [address] Surgeon ORTHOPAEDIC SURGERY 01/13/20 Akhil Vergara DO [address] [place] [address] INTERNAL MEDICINE 01/02/25 documented as of this encounter
--- OUTSIDE RECORDS SUMMARY | 2025-02-14 14:52 | XMS_ITS | Encounter Summary ---
Author Organization [facility] Address [address] [place] [address] Care Team Providers Care Cylinder Honer Name Role Phone Jordan Castro MD Unavailable [phone] Soila Neumann MD Primary Care Provider [phone] Akhil Vergara DO Unavailable Encounter Details Date Type Department Care Team (Late st Contact Info) Description 02/12/2025 Kelkoo Message Enc [facility] Medical Group Family & Internal Medicine [facility] [address] [place] [phone] Soila Neumann MD [address] [place] [address]. [address] [place] [address] CoverMyMeds Social History Tobacco Use Types Packs/Day Years [...] Sex Assigned at Female 06/28/2021 1:39 PM CHANNEL MARKETING SPECIALIST Legal Sex Female 3:51 PM CHANNEL MARKETING SPECIALIST Gender Identity Female 06/28/2021 1:39 PM CHANNEL MARKETING SPECIALIST Sexual Orientation Straight 06/28/2021 1: 39 PM CHANNEL MARKETING SPECIALIST Occupation Industry Job Start Date Job End Date RETIRED Not on file Not on file Not on file documented as of this encounter Plan of Treatment Upcoming Encounters Date Type Department Care Team (Latest Contact Info) Description 02/21/2025 9:00 AM CDT Hospital Encounter [facility] Interventional [place] [address] [id number] Carolyn Fernando MD Three [facility] [address] [place] [address] 02/21/2025 9:00 AM CDT - 02/21/2025 9:20 AM CDT Surgery [facility] Interventional Pain [place] [address] [id number] Carolyn Fernando MD Three [facility] [address] [place] [address] BLOCK SACROILIAC JOINT 05/05/2025 1:00 PM CHANNEL MARKETING SPECIALIST Office Visit [facility] Family & Internal Medicine [address] [phone] [place] [address] [place] [address] [phone] 08/15/2025 2:20 PM CHANNEL MARKETING SPECIALIST Office Visit [facility] Family & Internal Medicine [address] [phone] [place] [address] [address] [place] [address] [phone] Scheduled Procedures Name Priority Associated Diagnoses Date/Ti me BLOCK SACROILIAC JOINT SI joint arthritis 02/21/2025 9:00 AM CDT documented as of this encounter Visit Diagnoses Not on filedocumented in this encounter Additional Health Concerns Assessment Noted Time PHQ-9 Depression Total Score: 2 12/06/19 25 1:06 PM CDT documented as of this encounter Care Teams Cylinder Honer Relationship Specialty [place] [address] [facility]. [address] [place] [address] PCP - General FAMILY PRACTICE 08/11/22 Jordan Castro MD [address] [place] [address] Surgeon ORTHOPAEDIC SURGERY 01/13/20 Akhil Vergara DO [address] [place] [address] INTERNAL MEDICINE 01/02/25 documented as of this encounter
--- OUTSIDE RECORDS SUMMARY | 2025-02-14 14:52 | XMS_ITS | Encounter Summary ---
Author Organization [facility] Address [address] [place] [address] Care Team Providers Care Wrapper Stripper Name Role Phone Vanessa Ogden MD Primary Care Provider [phone] Jordan Castro MD Unavailable [phone] Soila Neumann MD Primary Care Provider Akhil Vergara DO Unavailable Encounter Details Date Type Department Care Team (Late st Contact Info) Description 02/25/2020 Nurego Message Enc [facility] Medical Group Family & Internal Medicine [facility] [address] [place] [address] Vanessa Ogden [place] [address] [place] [address] RE: Medication Questions Social History Tobacco Use Types Packs/Day Years Used Date Smoking Tobacco: Never Smokeless Tobacco: Never Alcohol Use Standard Drinks/Week Comments Yes 0 (1 standard drink = 0.6 oz pur e alcohol) Rare use PHQ-2 Answer Date Recorded PHQ-2 Score 0 09/28/2018 Comments No Sex and Gender Information Value Date Recorded Sex Assigned at Female 06/28/2021 1:39 PM DRAPERY HEMMER AUTOMATIC Legal Sex Female 3:51 PM DRAPERY HEMMER AUTOMATIC Gender Identity Female 06/28/2021 1:39 PM DRAPERY HEMMER AUTOMATIC Sexual Orientation Straight 06/28/2021 1: 39 PM DRAPERY HEMMER AUTOMATIC COVID-19 Exposure Response Date Recorded In the last month, have you been in contact with someone who was confirmed or suspected to have Coronavirus / COVID-19? No / Unsure 02/21/2020 3:15 PM CDT documented as of this encounter Progress Notes * Gilma Barreto RN - 02/25/2020 10:10 AM CDT Please stephen freeman ordered and seen documented in this encounter Plan of Treatment Upcoming Encounters Date Type Department Care Team (Latest Contact Info) Description 02/21/2025 9:00 AM CDT Hospital Encounter [facility] Interventional [place] [address] [id number] Carolyn Fernando MD Three [facility] [address] [place] [address] 02/21/2025 9:00 AM CDT - 02/21/2025 9:20 AM CDT Surgery [facility] Interventional [place] [address] [id number] Carolyn Fernando MD Three [facility] [address] [place] [address] BLOCK SACROILIAC JOINT 05/05/2025 1:00 PM DRAPERY HEMMER AUTOMATIC Office Visit [facility] Family & Internal Medicine [address] [phone] [place] [address] [place] [address] [phone] 08/15/2025 2:20 PM DRAPERY HEMMER AUTOMATIC Office Visit [facility] Family & Internal Medicine [address] [phone] [place] [address] [place] [address] Scheduled Procedures Name Priority Associated Diagnoses Date/Ti me BLOCK SACROILIAC JOINT SI joint arthritis 02/21/2025 9:00 AM CDT documented as of this encounter Visit Diagnoses Not on filedocumented in this encounter Additional Health Concerns Infection Onset Date Last Indicated Resolved Time COVID-19 Rule Out 09/08/2021 09/08/2021 09/08/2021 10:37 AM DRAPERY HEMMER AUTOMATIC documented as of this encounter Care Teams Wrapper Stripper Relationship Specialty Start Date End Date Vanessa Ogden MD PCP - General INTERNAL MEDICINE 08/14/18 08/10/22 [place] [address] [address] [place] [address] PCP - General FAMILY PRACTICE 08/11/22 Jordan Castro MD [address] [place], [place] [address] Surgeon ORTHOPAEDIC SURGERY 01/13/20 Akhil Vergara DO [address] [place] [address] INTERNAL MEDICINE 01/02/25 documented as of this encounter
--- OUTSIDE RECORDS SUMMARY | 2025-02-14 14:52 | XMS_ITS | Encounter Summary ---
Author Organization [facility] Address [address] [place] [address] Care Team Providers Care Machine Molder Squeeze Name Role Phone Jordan Castro MD Unavailable [phone] Soila Neumann MD Primary Care Provider [phone] Akhil Vergara DO Unavailable Encounter Details Date Type Department Care Team (Late st Contact Info) Description 12/06/2024 Uberpong Message Enc [facility] Interventional [facility] [place] [phone] [id number] Carolyn Fernando MD Three [facility] [address] [place] [address] SSI Joint Injection x 2 Social History Tobacco Use Types Packs/Day Years [...] Sex Assigned at Female 06/28/2021 1:39 PM SELF PROPELLED MINING MACHINE OPERATOR Legal Sex Female 3:51 PM SELF PROPELLED MINING MACHINE OPERATOR Gender Identity Female 06/28/2021 1:39 PM SELF PROPELLED MINING MACHINE OPERATOR Sexual Orientation Straight 06/28/2021 1: 39 PM SELF PROPELLED MINING MACHINE OPERATOR Occupation Industry Job Start Date Job End Date RETIRED Not on file Not on file Not on file documented as of this encounter Plan of Treatment Upcoming Encounters Date Type Department Care Team (Latest Contact Info) Description 02/21/2025 9:00 AM CDT Hospital Encounter [facility] [place] [address] [id number] Carolyn Fernando MD Three [facility] [address] [place] [address] 02/21/2025 9:00 AM CDT - 02/21/2025 9:20 AM CDT Surgery [facility] Interventional Pain [place] [address] [id number] Carolyn Fernando MD Three [facility] [address] [place] [address] BLOCK SACROILIAC JOINT 05/05/2025 1:00 PM SELF PROPELLED MINING MACHINE OPERATOR Office Visit [facility] Family & Internal [address] [address] [place] [address] [place] [phone] 08/15/2025 2:20 PM SELF PROPELLED MINING MACHINE OPERATOR Office Visit [facility] Family & Internal [address] [address] [place] [address] [facility] [address] [place] [address] [phone] Scheduled Procedures Name Priority Associated Diagnoses Date/Ti me BLOCK SACROILIAC JOINT SI joint arthritis 02/21/2025 9:00 AM CDT documented as of this encounter Visit Diagnoses Not on filedocumented in this encounter Additional Health Concerns Assessment Noted Time PHQ-9 Depression Total Score: 2 12/06/19 25 1:06 PM CDT documented as of this encounter Care Teams Machine Molder Squeeze Relationship Specialty [place] [address] [address] [place] [address] PCP - General FAMILY PRACTICE 08/11/22 Jordan Castro MD [address] [facility] [address] [place] [address] Surgeon ORTHOPAEDIC SURGERY 01/13/20 Akhil Vergara DO [address] [place] [address] INTERNAL MEDICINE 01/02/25 documented as of this encounter
--- OUTSIDE RECORDS SUMMARY | 2025-02-14 14:52 | XMS_ITS | Encounter Summary ---
Author Organization [facility] Address [address] [place] [address] Care Team Providers Care Meat Cutting Block Repairer Name Role Phone Jordan Castro MD Unavailable [phone] Soila Neumann MD Primary Care Provider [phone] Akhil Vergara DO Unavailable Encounter Details Date Type Department Care Team (Late st Contact Info) Description 12/06/2024 eyeSight Mobile Technologiest Message Enc [facility] Orthopedic Surgery-[place] [address] [place] [address] [place] [address] [place] [address] questions I should have asked Social History Tobacco Use Types Packs/Day Years [...] Sex Assigned at Female 06/28/2021 1:39 PM NAPKIN BAND WRAPPER Legal Sex Female 3:51 PM NAPKIN BAND WRAPPER Gender Identity Female 06/28/2021 1:39 PM NAPKIN BAND WRAPPER Sexual Orientation Straight 06/28/2021 1: 39 PM NAPKIN BAND WRAPPER Occupation Industry Job Start Date Job End Date RETIRED Not on file Not on file Not on file documented as of this encounter Plan of Treatment Upcoming Encounters Date Type Department Care Team (Latest Contact Info) Description 02/21/2025 9:00 AM CDT Hospital Encounter [facility] Interventional [place] [address] [id number] Carolyn Fernando MD Three [facility] [address] [place] [address] 02/21/2025 9:00 AM CDT - 02/21/2025 9:20 AM CDT Surgery [facility] Interventional Pain Management [place] [address] [id number] Carolyn Fernando MD Three [facility] [address] [place] [address] BLOCK SACROILIAC JOINT 05/05/2025 1:00 PM NAPKIN BAND WRAPPER Office Visit [facility] Family & Internal Medicine [address] [phone] [place] [address] [address] [place] [phone] 08/15/2025 2:20 PM NAPKIN BAND WRAPPER Office Visit [facility] Family & Internal Medicine [address] [address] [place] [address] [facility] [address] [place] [phone] Scheduled Procedures Name Priority Associated Diagnoses Date/Ti me BLOCK SACROILIAC JOINT SI joint arthritis 02/21/2025 9:00 AM CDT documented as of this encounter Visit Diagnoses Not on filedocumented in this encounter Additional Health Concerns Assessment Noted Time PHQ-9 Depression Total Score: 2 12/06/19 25 1:06 PM CDT documented as of this encounter Care Teams Meat Cutting Block Repairer Relationship Specialty [place] [address] [facility] [place] [address] PCP - General FAMILY PRACTICE 08/11/22 Jordan Castro MD [address] [place], [place] [id number] Surgeon ORTHOPAEDIC SURGERY 01/13/20 Akhil Vergara DO [address] [place] [address] INTERNAL MEDICINE 01/02/25 documented as of this encounter
--- OUTSIDE RECORDS SUMMARY | 2025-02-14 14:52 | XMS_ITS | Clinical Summary ---
Author Organization [facility] 2 Address [address] [facility] [place] [address] Care Team Providers Care Rotary Furnace Operator Name Role Phone Trung Miles MD Unavailable [phone] Soila Neumann MD Primary Care Provider [phone] Allergies Active Allergy Reactions Criticality Noted Date [...] taking.Reported on 07/22/2024 CYANOCOBALAMIN /FOLIC ACID (VITAMIN P29-WMKDR ACID) 1,000-400 mcg tablet, sublingual 0 0 [...] History Surgery Date Site/Laterality Comments THYROIDECTOMY Thyroidectomy ME APPENDECTOMY Appendectomy - (Added by TW Conv) ME TONSILLECTOMY PRIMARY/SEC ONDARY <AGE 12 Tonsillectomy - (Added by TW Conv) ME TOTAL ABDOMINAL HYSTERECT W/WO RMVL TUBE OVARY Hysterectomy - (Added by TW Conv) ME EXPLORATORY LAPAROTOMY CELIOTOMY W/WO BIOPSY SPX Exploratory Laparotomy - (Added by TW Conv) ME PRTL THYROID LOBECTOMY UN I W/WO ISTHMUSECTOMY Thyroid Surgery Sub-Total Thyroidectomy - (Added by TW Conv) ME HEMORRHOIDECTOMY INTERNAL RUBBER BAND LIGATIONS Hemorrhoidectomy - (Added by TW Conv) EXTRACORPOREAL SHOCK WAVE LITHOTRIPSY Lithotripsy - (Added by TW Conv) ME REPAIR RECTOCELE SEPARATE PROCEDURE Rectocele Repair - [...] on file Legal Sex Female 2:27 AM WIRE WORKER Gender Identity Not on file Sexual Orientation Not on file Obstetrics History Last Filed Vital Signs Vital Sign Reading Time Taken Comments Blood Pressure 107/66 07/22/2024 11:38 AM WIRE WORKER Pulse 82 07/22/2024 12:05 PM WIRE WORKER Temperature 36.6 C (97.9 F) 07/22/2024 11:38 AM WIRE WORKER Respiratory Rate 18 07/22/2024 11:3 8 AM WIRE WORKER Oxygen Saturation 97% 07/22/2024 12: 05 PM WIRE WORKER Inhaled Oxygen Concentration - - Weight 107.8 kg (237 lb 11.2 oz) 2024 11:38 AM WIRE WORKER Height 165.1 cm (5' 5) 07/22/2024 11:3 8 AM WIRE WORKER Body Mass Index 39.56 07/22/2024 11:38 AM WIRE WORKER Plan of Treatment Health Maintenance Due Date Last Done Comments Breast Cancer Screening-Mammogram 1950 Colon Cancer Screening-Colonoscopy 1950 Depression Screening 1950 Fall Risk Assessment 1950 Hepatitis C Screening 1950 Hepatitis B Screening 1969 Zoster Vaccine (1 of 2) 2001 Well Visit 65+ 2016 Covid-19 Vaccine (2023-2 5 season) 2024 04/14/2022, 03/23/2021, 09/11/2020, Additional history exists Influenza Vaccine (#1) 2025 , 04/14/2022, 03/30/2021, Additional history exists Osteoporosis Screening-Bone Density Scan 11/16/2025 11/17/2023 DTaP/Tdap/Td Vaccine (5 - Td or Tdap) 01/02/2033 01/02/2023, 01/01/2023, 05/17/2017, Additional history exists Pneumococcal vaccine 65+ Completed 018, 04/13/2018, 05/12/2017, Additional history exists Insurance MEDICARE [facility] MEDIC[facility] [place] [address] MEDICARE [facility] Care Teams Rotary Furnace Operator Relationship Specialty [place] [address] [address] [address] PCP - General Family Medicine 12/01/23 Trung Miles MD [address] [facility] [address] [place] [address] Surgeon Vascular Surgery 11/07/22
--- OUTSIDE RECORDS SUMMARY | 2025-02-14 14:52 | XMS_ITS | Clinical Summary ---
Author Organization [facility] Address [facility] [place] [address] Care Team Providers Care Medical Radiation Tech Name Role Phone Jordan Castro MD Unavailable Soila Darnell MD Primary Care Provider Akhil Vergara DO Unavailable Allergies Active Allergy Reactions Criticality Noted Date Comments Codeine Vomiting Low 08/14/2018 Fluconazole Rash Low 03/20/2024 Possible facial rash following diflucan 02/23 Sulfa Antibiotics Anaphylaxis,Hives High 08/14/2018 Tramadol Other (see comment) Low Reaction: Confusion Medications estradiol 1 MG tablet Take 1 tablet (1 mg total) by mouth daily. Active Cholecalciferol (VITAMIN D-3 OR) Take 50 mcg by mouth daily. 12/14/19 16 Active Magnesium 400 MG Tab Take 1 tablet by mouth every evening. Active folic acid 1 MG tablet Take 1 tablet (1 mg total) by mouth daily. 07/17/19 21 Active Insulin Syringe-Needle U-100 (SAFETY INSULIN SYRINGES) 27G X 1/2 1 ML MiscIndications: Vitamin B12 deficiency 1 Syringe by Does not apply route weekly. 12 each 3 02/04/20 21 Active albuterol sulfate HFA 108 (90 Base) MCG/ACT inhaler 02/17/20 22 Active cetirizine (ZYRTEC) 10 MG tablet Take 1 tablet (10 mg total) by mouth daily. Active diclofenac epolamine (FLECTOR) 1.3 % PatchIndications :Fibromyalgia Apply 1 patch topically 2 (two) times daily. 60 patch 2 08/03/19 23 Active cyclobenzaprine (FLEXERIL) 5 MG tablet Take 1 tablet (5 mg total) by mouth. 08/23/19 23 Active pravastatin (PRAVACHOL) 10 MG tablet Take 1 tablet (10 mg total) by mouth daily. Active XARELTO 20 MG Tab tablet TAKE 1 TABLET BY MOUTH EVERY EVENING WITH EVENING MEAL 01/10/20 23 Active methotrexate (TREXALL) 2.5 MG tablet Take 1 tablet (2.5 mg total) by mouth once a week. Takes 6 tablets on Monday. 01/17/20 23 Active amiodarone (PACERONE) 100 MG tablet Take 1 tablet (100 mg total) by mouth. 04/21/20 23 Active amLODIPine (NORVASC) 10 MG tablet Take 1 tablet (10 mg total) by mouth daily. 06/20/20 23 Active Melatonin 10 MG Cap Active ondansetron (ZOFRAN) 8 MG tabletIndication s:Nausea Take 1 tablet (8 mg total) by mouth every 8 (eight) hours as needed. 20 tablet 5 03/13/20 24 Active omeprazole (PRILOSEC) 20 MG capsuleIndicatio ns:Gastroesophag eal reflux disease without esophagitis TAKE 1 CAPSULE BY MOUTH DAILY 90 capsule 3 05/06/20 24 Active levothyroxine (SYNTHROID) 125 MCG tabletIndication s:Hypothyroidism , unspecified type TAKE 1 TABLET BY MOUTH DAILY 90 tablet 3 05/22/20 24 Active gabapentin (NEURONTIN) 400 MG capsuleIndicatio ns:Chronic pain syndrome,Fibromy algia,Seronegati ve rheumatoid arthritis (CMS/HCC HHS/HCC) TAKE 1 CAPSULE BY MOUTH IN THE MORNING , 1 CAPSULE AROUND NOON, 1 CAPSULE IN THE EVENING AND 2 CAPSULES BY MOUTH AT BEDTIME 450 capsule 3 05/22/20 24 Active azelastine (ASTELIN) 0.1 % nasal sprayIndications :Chronic rhinitis USE 1 SPRAY IN EACH NOSTRIL TWICE DAILY 90 mL 3 06/28/20 24 Active diclofenac sodium (VOLTAREN) 1 % gel Apply 2 g topically 4 (four) times daily. 2 g 07/17/19 25 Active Azelaic Acid 15 % gel APPLY THIN LAYER TOPICALLY TO FACE DAILY 06/14/20 24 Active lisinopril (PRINIVIL) 20 MG tabletIndication s:Essential hypertension TAKE 1 TABLET BY MOUTH DAILY 90 tablet 3 08/22/19 25 Active ADVAIR DISKUS 250-50 MCG/ACT inhaler 09/26/19 25 Active acetaminophen CR (TYLENOL) 650 MG Tab CR 8 hr tablet Take 1 tablet (650 mg total) by mouth every 8 (eight) hours as needed. Active tolterodine (DETROL) 2 MG tabletIndication s:Mixed incontinence TAKE 1 TABLET(2 MG) BY MOUTH TWICE DAILY 180 tablet 12/04/19 25 Active predniSONE (DELTASONE) 10 mg tablet Take 1 tablet (10 mg total) by mouth daily as needed. 12/04/19 25 Active cyanocobalamin (B-12) 1000 MCG/ML injectionIndicat ions:Vitamin B12 deficiency INJECT 1ML IN THE MUSCLE EVERY 30 DAYS 10 mL 01/09/20 25 Active Insulin Syringe-Needle U-100 27G X 1/2 1 ML MiscIndications: Vitamin B12 deficiency 1 Syringe by Does not apply route every 30 (thirty) days. 12 each 01/09/20 25 Active HYDROcodone-acet aminophen (NORCO) 7.5-325 MG tabletIndication s:Chronic Pain Take 1 tablet by mouth every 8 (eight) hours as needed for Pain. Indications: Chronic Pain 90 tablet 02/05/20 25 Active HYDROcodone-acet aminophen (NORCO) 7.5-325 MG tabletIndication s:Chronic Pain Take 1 tablet by mouth every 8 (eight) hours as needed for Pain. Indications: Chronic Pain 90 tablet 03/06/20 25 Active Additional Information Patient not taking.Reported on 02/12/2025 HYDROcodone-acet aminophen (NORCO) 7.5-325 MG tabletIndication s:Chronic Pain Take 1 tablet by mouth every 8 (eight) hours as needed for Pain. Indications: Chronic Pain 90 tablet 04/05/20 25 Active Additional Information Patient not taking.Reported on 02/12/2025 naloxone (NARCAN) 4 MG/0.1ML nasal sprayIndications :High risk medication use 1 spray by Nasal route as needed for Opioid reversal. may repeat every 2 to 3 minutes in alternating nostrils until medical assistance becomes available 1 each 02/05/20 25 026 Active tirzepatide (ZEPBOUND) 2.5 MG/0.5ML injectionIndicat ions:Weight Loss Inject 2.5 mg into the skin once a week. Indications: Weight Loss 2 mL 02/05/20 Active Additional Information Patient not taking.Reported on 02/12/2025 hydroCHLOROthiaz driss (HYDRODIURIL) 25 MG tablet Take 1 tablet (25 mg total) by mouth daily. 02/08/20 Active TOCILIZUMAB IV Inject 700 mg into the vein every 30 (thirty) days. Pt reported increased to 800mg Discontin ued(Alter elizabet therapy) HYDROcodone-acet aminophen (NORCO) 7.5-325 MG tabletIndication s:Chronic Pain Take 1 tablet by mouth every 8 (eight) hours as needed for Pain. Indications: Chronic Pain 90 tablet 11/04/19 25 025 Discontin ued(Reord er) HYDROcodone-acet aminophen (NORCO) 7.5-325 MG tabletIndication s:Chronic Pain Take 1 tablet by mouth every 8 (eight) hours as needed for Pain. Indications: Chronic Pain 90 tablet 12/04/19 25 025 Discontin ued(Reord er) HYDROcodone-acet aminophen (NORCO) 7.5-325 MG tabletIndication s:Chronic Pain Take 1 tablet by mouth every 8 (eight) hours as needed for Pain. Indications: Chronic Pain 90 tablet 01/03/20 25 025 Discontin ued(Reord er) Hospital, Clinic, or Other Facility Administered Medication Ordered Dose Route Frequency Start Date End Date Status lidocaine (XYLOCAINE) 2 % injection 2 mLIndications:Arthritis of both ankles 2 mL IX Once 02/13/2025 Active triamcinolone acetonide (KENALOG-40) injection 40 mgIndications:Arthritis of both ankles 40 mg IX Once 02/13/2025 Active triamcinolone acetonide (KENALOG-40) injection 40 mgIndications:Arthritis of both ankles 40 mg IX Once 02/13/2025 Active lidocaine (XYLOCAINE) 2 % injection 2 mLIndications:Arthritis of both ankles 2 mL Other Once 02/13/2025 Active Active Problems Problem Noted Date Diagnosed Date Hypothyroidism, unspecified type 01/31/2025 Mixed hyperlipidemia 01/31/2025 History of rheumatoid arthritis 12/07/2024 Rotator cuff tear 12/07/2024 Assessment & Plan (12/07/2024 6:30 PM CDT): Recommendation at this time we went over the risks the benefits as well as the alternatives. Definitive treatment may be a reverse total shoulder, as she has rotator cuff tears and some mild osteoarthritis. If she was wanting to have that rotator cuff repair, some mild osteoarthritis. If she was wanting to have that rotator cuff repair, we could certainly do that, but she is over the age of [age], which increases her risk for failure. She is already on chronic pain medication, so we may have a hard time getting her pain under control. And she has a history of rheumatoid arthritis, which also increases the risk for infection and the failure of the repair. We went over the risks, the benefits, as well as the old terms. All questions are answered. She's not sure which way she wants to go. She was kind of hoping her would be with her, but he is not, so she's going to go home and talk about it with him, and we'll give us a call back if she decides to proceed with any type of surgical intervention. If it's a rotator cuff repair, we can do that. If it's a reverse total shoulder, we'll have to refer her out. Rotator cuff arthropathy of right shoulder 08/20 SI joint arthritis 03/25/2024 Change in bowel habits 02/13/2024 Pharyngoesophageal dysphagia 12/11/2023 Epigastric abdominal pain 12/11/2023 Lumbar radiculopathy 10/11/2023 Greater trochanteric bursitis, right 08/10/2023 Olecranon bursitis of left elbow 06/06/2022 Seronegative rheumatoid arthritis ([facility] HHS/H CC) 11/06/2020 Urinary incontinence 08/13/2019 Sacroiliitis 07/22/2019 Overview (07/22/2019): Added automatically from request for surgery [id number] Bursitis 07/22/2019 Overview (07/22/2019): Added automatically from request for surgery [id number] Osteoarthritis of right hip, unspecified osteoarthritis type 10/11/2018 Urgency of urination 10/09/2018 Hypertension 10/09/2018 Obesity (BMI 30-39.9) 03/30/2017 Fibromyalgia 03/24/2016 Irritable bowel syndrome 03/24/2016 Insomnia 03/24/2016 Gastroesophageal reflux disease 03/23/2016 Bronchial asthma (HHS/HCC) 03/23/2016 Nonalcoholic fatty liver disease 03/23/2016 Lumbago 01/23/2014 Arthralgia of ankle 04/03/2013 Resolved Problems Problem Noted Date Diagnosed Date Resolved Date Anxiety 10/18/2022 Encounters Date Type Department Care Team Description 02/13/2025 MyChart Message Enc [facility] Family & Internal Medicine [address] [phone] Soila Darnell MD Current reading of BNP Do You Agree with advise? 02/12/2025 1:00 PM CDT Office Visit [facility] Orthopedic & Sports Medicine [facility] [address] [place] [address] Freddy Russell PA Follow Up (Right foot ) 02/12/2025 MyChart Message Enc [facility] Family & Internal Medicine [address] [phone] Soila Darnell MD CoverMyMeds 02/12/2025 Travel 02/11/2025 Results Follow-Up [facility] Family & Internal [address] [phone] Soila Darnell MD CBC W/DIFF AUTOMATED, COMPREHENSIVE METABOLIC PANEL, LIPID PANEL, Additional followed-up results: 5 02/05/2025 9:10 AM CDT Laboratory Only [facility] Family & Internal Medicine [address] [phone] Soila Darnell MD 02/05/2025 Travel 02/02/2025 MyChart Message Enc [facility] Family & Internal [address] [phone] Soila Darnell MD Hydrocodone 01/31/2025 1:20 PM CDT Office Visit [facility] Family & Internal [address] [address] [place] [phone] Soila Darnell MD Follow Up 01/31/2025 Travel 01/06/2025 MyChart Message Enc [facility] Family & Internal [facility] [address] [place] [phone] Soila Darnell MD Rotator Cuff additional questions I had for Dr. Otero & his reply 01/06/2025 MyChart Message Enc [facility] Family & Internal [address] [phone] Soila Darnell MD Rotator Cuff tear 12/30/2024 Scan [facility] SRVCS Scanned, [facility] 12/09/2024 Telephone [facility] [place] [address] [id number] Jovana Mcmahan RN Follow Up (/) 12/09/2024 Telephone [facility] [place] [address] [id number] Jovana Mcmahan RN Error 12/06/2024 MyChart Message Enc [facility] [place] [address] [id number] Carolyn Fernando MD SSI Joint Injection x 2 12/06/2024 MyChart Message Enc [facility] [address] [place] [address] Jose Otero, DO questions I should have asked 12/05/2024 1:20 PM CDT [facility] [address] [place] [address] Jose Otero, DO Shoulder Pain (Right Shoulder Pain ) 12/05/2024 Travel 11/22/2024 MyChart Message Enc [facility] Family & Internal [address] [phone] oSila Darnell MD Blood workup 11/20/2024 8:40 AM CDT - 11/20/2024 9:00 AM CDT Surgery [facility] [place] [address] [phone] Carolyn Fernando MD BLOCK SACROILIAC JOINT 11/20/2024 7:54 AM CDT - 11/20/2024 9:15 AM CDT Hospital Encounter [facility] [place] [address] [id number] Carolyn Fernando MD Discharge Disposition: Home or Self Care (Routine Discharge) 11/20/2024 Travel 11/18/2024 10:00 AM CDT Office Visit [facility] Family & Internal [address] [phone] Cristina Navarro MD Foot Pain (R heel pain. happened 11/08/24--Walking across yard, something popped, 04/11 pain.) 11/18/2024 Travel 11/15/2024 Orders Only [facility] Family & Internal [address] [phone] Soila Darnell MD 11/15/2024 Orders Only [facility] Family & Internal [address] [phone] Soila Darnell MD from Last 3 Months Immunizations Immunization Administration [...] Stroke Maternal Grandmother Vision loss Maternal Grandmother Arthritis Mother Arthritis in Adults Mother Asthma Mother COPD Mother Early Hearing Loss Mother Heart Disease Mother pacemaker Hypertension Mother Vision loss Mother Diabetes Paternal Grandfather Diabetes Paternal Grandmother Arthritis [...] Sex Assigned at Female 06/28/2021 1:39 PM [employer] Legal Sex Female 3:51 PM [employer] Gender Identity Female 06/28/2021 1:39 PM [employer] Sexual Orientation Straight 06/28/2021 1: 39 PM [employer] Occupation Industry Job Start Date Job End Date RETIRED Not on file Not on file Not on file Last Filed Vital Signs Vital Sign Reading Time Taken Comments Blood Pressure 110/62 02/12/2025 12:58 PM CDT Pulse 79 02/12/2025 12:58 PM CDT Temperature 36.6 C (97.9 F) 02/12/2025 12:58 PM CDT Respiratory Rate 18 01/31/2025 1:18 PM CDT Oxygen Saturation 94% 01/31/2025 1:18 PM CDT Inhaled Oxygen Concentration - - Weight 106.1 kg (234 lb) 02/12/2025 12:58 PM CDT Height 165.1 cm (5' 5) 02/12/2025 12:58 PM CDT Body Mass Index 38.94 02/12/2025 12:58 PM CDT Plan of Treatment Upcoming Encounters Date Type Department Care Team (Latest Contact Info) Description 02/21/2025 9:00 AM CDT Hospital Encounter [facility] [place] [address] [id number] Carolyn Fernando MD [facility] [address] [place] [address] 02/21/2025 9:00 AM CDT - 02/21/2025 9:20 AM CDT Surgery [facility] [place] [address] [id number] Carolyn Fernando MD [facility] [address] [place] [address] BLOCK SACROILIAC JOINT 05/05/2025 1:00 PM [employer] Office Visit [facility] Family & Internal [address] [phone] [place] [address] [place] [phone] 08/15/2025 2:20 PM [employer] Office Visit [facility] Family & Internal [facility] [phone] [place] [phone] [place] [address] [place] [phone] Scheduled Procedures Name Priority Associated Diagnoses Date/Ti me BLOCK SACROILIAC JOINT SI joint arthritis 02/21/2025 9:00 AM CDT Health Maintenance Due Date Last Done Comments Zoster Vaccines (1 of 2) 2001 RSV Immunization or 60+ Years (1 - Risk 60-74 years 1-dose series) 2011 Annual Medicare Wellness Visit 2016 Mammogram Screening 05/19/2022 05/19/2021, 0 COVID-19 Vaccine ( season) 2024 04/07/2024, 04/14/2022, 03/23/2021, Additional history exists DTaP, Tdap and Td Vaccines (5 - Td or Tdap) 01/02/2033 01/02/2023, 01/01/2023, 05/17/2017, Additional history exists Colorectal Cancer Screening Colonoscopy (10 Years) 06/17/2034 06/17/2024, 06/21/2019 Pneumococcal Vaccine: 50+ Years Completed 05/12/2018, 04/13/2018, 05/12/2017, Additional history exists Hepatitis C Completed 11/06/2019 Dexa Scan (General) Completed 11/17/2023 PHQ-2 (Physician [place]) Completed 12/05/2024 Meningococcal B Vaccine Aged Out No l onger eligible based on patient's age to complete this topic Meningococcal Vaccine Aged Out No jennifer bill eligible based on patient's age to complete this topic RSV Immunizations Under 20 Months Aged Out No longer eligible based on patient's age to complete this topic Procedures Procedure Name Priority Date/Time Associated Diagnosis Comments COLLECTION VENOUS BLOOD VENIPUNCTURE Routine 02/05/2025 9:20 AM CDT Mixed hyperlipidemia Hypothyroidism, unspecified type Vitamin D deficiency Vitamin B12 deficiency Hypomagnesemia Dyspnea, unspecified type Pedal edema PRO-BRAIN NATRIURETIC PEPTIDE Routine 02/05/2025 9:08 AM CDT Pedal edema Dyspnea, unspecified type MAGNESIUM Routine 02/05/2025 9:08 AM CDT Hypomagnesemia VITAMIN D, 25 OH Routine 02/05/2025 9:08 AM CDT Vitamin D deficiency VITAMIN B12 / FOLATE Routine 02/05/2025 9:08 AM CDT Vitamin B12 deficiency TSH W/REFLEX Routine 02/05/2025 9:08 AM CDT Hypothyroidism, unspecified type LIPID PANEL Routine 02/05/2025 9:08 AM CDT Mixed hyperlipidemia COMPREHENSIVE METABOLIC PANEL Routine 02/05/2025 9:08 AM CDT Mixed hyperlipidemia CBC W/DIFF AUTOMATED Routine 02/05/2025 9:08 AM CDT Mixed hyperlipidemia INJECTION,SACROILIAC JOINT 11/20/2024 8:45 AM CDT SI joint arthritis XR PAIN CLINIC C-ARM Today 11/20/2024 8:27 AM CDT BONE DENSITY/DEXA Routine 11/17/2023 2:0 7 PM CDT Encounter for osteoporosis screening in asymptomatic postmenopausal patient MAMMOGRAM GENERIC (SCAN ORDER) 05/19/2021 HEPATITIS C ANTIBODY Routine 11/06/2019 6:45 PM CDT Need for hepatitis C screening test COLONOSCOPY/EGD GENERIC (SCAN ORDER) Routine 06/21/2019 from Last 3 Months or Most Recently Relevant to Health Maintenance Results * VITAMIN B12 / FOLATE (02/05/2025 9:08 AM CDT) Pathologist [facility] VITAMIN B12 S/P/B 305 200 - 1,100 pg/mL [facility] Comment: Please Note: Although the reference range for vitamin B12 is 200-1100 pg/mL, it has been reported that between 5 and 10% of patients with values between 200 and 400 pg/mL may experience neuropsychiatric and hematologic abnormalities due to occult B12 deficiency; less than 1% of patients with values above 400 pg/mL will have symptoms. FOLATE 16.6 ng/mL [facility] Comment: Reference Range Low: <3.4 Borderline: 3.4-5.4 Normal: >5.4 02/05/2025 9:08 AM CDT 02/06/2025 4:21 AM CDT Narrative Resulting Agency Comment Performing Organization Information: Site ID: [id number] Name: [facility] [employer] Address: [address] [place] [address] Director: Reymundo Rivera MD us Soila Darnell MD LABORATORY Final Result [facility] Robert MARTINEZ [employer] [id number] [place] [id number] * TSH W/REFLEX (02/05/2025 9:08 AM CDT) Pathologist [facility] TSH 1.45 0.40 - 4.50 mIU/L [facility] 02/05/2025 9:08 AM CDT 02/06/2025 4:21 AM CDT Narrative Resulting Agency Comment Performing Organization Information: Site ID: [id number] Name: [facility] Address: [address] [place] [id number] Director: Reymundo Rivera MD Soila Darnell MD LABORATORY Final Result Performing Organization Address City/[facility] Co de Phone Number [employer] EYAD NELSON [address] [address], * (ABNORMAL) PRO-BNP (02/05/2025 9:08 AM CDT) [facility] PRO-B TYPE NATRIURETIC PEPTIDE 148(H) <125 pg/mL [facility] 02/05/2025 9:08 AM CDT 02/06/2025 3:04 AM CDT Narrative Resulting Agency Comment Performing Organization Information: Site ID: JESSICA Name: [facility] Address: [address] [place] [phone] Director: Reymundo Rivera MD Soila Darnell MD LABORATORY Final Result Performing Organization Address [facility] de Phone Number [employer] EYAD NELSON [facility] [employer] [address] [address], * (ABNORMAL) COMPREHENSIVE METABOLIC PANEL (02/05/2025 9:08 AM CDT) [facility] GLUCOSE 89 65 - 99 mg/dL [facility] Comment: Fasting reference interval BUN 13 7 - 25 mg/dL [facility] CREATININE S/P/B 0.59(L) 0.60 - 1.00 mg/dL [facility] GFR ESTIMATE 95 > OR = 60 mL/min/1. 73m2 [facility] BUN CREATININE RATIO 22 6 - 22 (calc) [facility] SODIUM S/P/B 140 135 - 146 mmol/L [facility] POTASSIUM S/P/B 4.1 3.5 - 5.3 mmol/L [facility] CHLORIDE S/P/B 105 98 - 110 mmol/L [facility] CO2 27 20 - 32 mmol/L [facility] CALCIUM S/P/B 9.2 8.6 - 10.4 mg/dL [facility] TOTAL PROTEIN S/P/B 6.1 6.1 - 8.1 g/dL [facility] ALBUMIN S/P/B 4.0 3.6 - 5.1 g/dL [facility] Manufacturers' Inventory [facility] GLOBULIN 2.1 1.9 - 3.7 g/dL (calc) [facility] ALBUMIN/GLOBULIN RATIO 1.9 1.0 - 2.5 (calc) [facility] BILIRUBIN TOTAL S/P/B 0.5 0.2 - 1.2 mg/dL [facility] ALKALINE PHOSPHATASE S/P/B 44 37 - 153 U/L [facility] AST 17 10 - 35 U/L [facility] Manufacturers' Inventory [facility] ALT 14 6 - 29 U/L [facility] 02/05/2025 9:08 AM CDT 02/06/2025 4:21 AM CDT Narrative Resulting Agency Comment Performing Organization Information: Site ID: [id number] Name: [facility] Address: [address] [facility] [place] [address] Director: Reymundo Rivera MD Soila Darnell MD LABORATORY Final Result [facility] [id number] [id number] * (ABNORMAL) LIPID PANEL (02/05/2025 9:08 AM CDT) CHOLESTEROL 159 <200 mg/dL [facility] HDL 69 > OR = 50 mg/dL [facility] TRIGLYCERIDES 176(H) <150 mg/dL [facility] LDL (CALCULATED) 65 mg/dL (calc) [facility] Comment: Reference range: <100 Desirable range <100 mg/dL for primary prevention; <70 mg/dL for patients with CHD or diabetic patients with > or = 2 CHD risk factors. LDL-C is now calculated using the Andre-Vo calculation, which is a validated novel method providing better accuracy than the Friedewald equation in the estimation of LDL-C. Andre SS et al. SIMON. 2013;310(24): 5416-5503 (http://education.Kast/faq/JTO797) CHOL/HDL RATIO 2.3 <5.0 (calc) [facility] NON HDL CHOLESTEROL 90 <130 mg/dL (calc) [facility] Comment: For patients with diabetes plus 1 major ASCVD risk factor, treating to a non-HDL-C goal of <100 mg/dL (LDL-C of <70 mg/dL) is considered a therapeutic option. 02/05/2025 9:08 AM CDT 02/06/2025 4:21 AM CDT Narrative Resulting Agency Comment Performing Organization Information: Site ID: [email or web address] Name: [facility] Address: [address] [place] [address] Director: Reymundo Rivera MD Soila Darnell MD LABORATORY Final Result JANKI Jones OMAR MICHELLE [facility] [id number] [place] [address] [place], [place] [id number] * (ABNORMAL) CBC W/DIFF AUTOMATED (02/05/2025 9:08 AM CDT) WBC 6.0 3.8 - 10.8 Thousand/ uL [facility] RBC 3.78(L) 3.80 - 5.10 Million/u L [facility] HGB 11.6(L) 11.7 - 15.5 g/dL [facility] HCT 36.2 35.0 - 45.0 % [facility] MCV 95.8 80.0 - 100.0 fL [facility] MCH 30.7 27.0 - 33.0 pg Notegraphy DIANN MCHC 32.0 32.0 - 36.0 g/dL [facility] Comment: For adults, a slight decrease in the calculated MCHC value (in the range of 30 to 32 g/dL) is most likely not clinically significant; however, it should be interpreted with caution in correlation with other red cell parameters and the patient's clinical condition. RDW 14.3 11.0 - 15.0 % [facility] DI[facility] PLT 242 140 - 400 Thousand/ uL [facility] DI[facility] MPV 10.3 7.5 - 12.5 fL [facility] ABS. NEUTROPHILS 2,118 1,500 - 7,800 cells/uL [facility] ABS. LYMPHOCYTES 3,192 850 - 3,900 cells/uL [facility] ABS. MONOCYTES 492 200 - 950 cells/uL [facility] ABS. EOSINOPHILS 150 15 - 500 cells/uL [facility] ABS. BASOPHILS 48 0 - 200 cells/uL [facility] DI[facility] SEG NEUTROPHILS 35.3 % [facility] LYMPHOCYTES 53.2 % [facility] MONOCYTES 8.2 % [facility] EOSINOPHILS 2.5 % [facility] BASOPHILS 0.8 % [facility] 02/05/2025 9:08 AM CDT 02/06/2025 4:21 AM CDT Narrative Resulting Agency Comment Performing Organization Information: Site ID: [id number] Name: [facility] Address: [address] [place] [id number] Director: Reymundo Rivera MD Soila Darnell MD LABORATORY Final Result [facility] 4tiitoo [address] [id number] * VITAMIN D, 25 OH (02/05/2025 9:08 AM CDT) VITAMIN D 25 HYDROXY TOTAL S/P/B 47 30 - 100 ng/mL [facility] Comment: Vitamin D Status 25-OH Vitamin D: Deficiency: <20 ng/mL Insufficiency: 20 - 29 ng/mL Optimal: > or = 30 ng/mL For 25-OH Vitamin D testing on patients on D2-supplementation and patients for whom quantitation of D2 and D3 fractions is required, the QuestAssureD(TM) 25-OH VIT D, (D2,D3), LC/MS/MS is recommended: order code [id number] (patients >2yrs). See Note 1 Note 1 For additional information, please refer to http://education.Kast/faq/ZAZ947 (This link is being provided for informational/ educational purposes only.) 02/05/2025 9:08 AM CDT 02/06/2025 4:21 AM CDT Narrative Resulting Agency Comment Performing Organization Information: Site ID: [id number] Name: [employer] [facility] Address: [address] [place], [place] [address] [address] Director: Reymundo Rivera MD Soila Darnell MD LABORATORY Final Result Performing Organization Address City/[facility] Co de Phone Number [facility] DIAGNOSTICS - OMAR MARTINEZ Not[facility] [address] [id number] * MAGNESIUM (02/05/2025 9:08 AM CDT) MAGNESIUM 1.9 1.5 - 2.5 mg/dL [facility] Inventory [facility] 02/05/2025 9:08 AM CDT 02/06/2025 4:21 AM CDT Narrative Resulting Agency Comment Performing Organization Information: Site ID: [id number] Name: [employer] Address: [address] [place] [phone] Director: Reymundo Rivera MD Soila Darnell MD LABORATORY Final Result Performing Organization Address [facility] de Phone Number [facility] - OMAR MARTINEZ [facility] [address] [address], * XR PAIN CLINIC C-ARM (11/20/2024 8:27 AM CDT) Narrative Radiology, Technologist - 11/20/2024 8:27 AM CDT This report does not contain a radiologist's [...] the next 10 years. Referred By: SOILA DARNELL Interpreted By: Rodri Chaudhry MD, 11/17/2023 9:09 [...] the next 10 years. Referred By: SOILA DARNELL Interpreted By: Rodri Chaudhry MD, 11/17/2023 9:09 PM us Soila Darnell MD DEXA Final Result * MAMMOGRAM GENERIC (05/19/2021) Anatomical Region Laterality Modality Other 05/19/2021 Narrative 05/19/2021 Ordered by an unspecified provider. us Documents Scanned SCANNING Final Result * HEPATITIS C ANTIBODY (11/06/2019 6:45 PM CDT) HEPATITIS C AB NON-REACTI VE NON-REACTI VE 11/07/2019 10:59 AM CDT [facility] 11/06/2019 6:45 PM CDT us Vanessa Ogden MD LABORATORY Final Result [facility] [address] [place] [address], * COLONOSCOPY/EGD (06/21/2019) us Documents Scanned SCANNING Edited Result - Final from Last 3 Months or Most Recently Relevant to Health Maintenance Insurance [facility] MEDICARE Care Teams Medical Radiation Tech Relationship Specialty [place] [address] [address] [place] [address] PCP - General FAMILY PRACTICE 08/11/22 Jordan Castro MD [address] [facility] [address] [place] [address] Surgeon ORTHOPAEDIC SURGERY 01/13/20 Akhil Vergara DO [address] [place] [address] INTERNAL MEDICINE 01/02/25
--- OUTSIDE RECORDS SUMMARY | 2025-02-14 14:52 | XMS_ITS | Encounter Summary ---
Author Organization [facility] Address [address] [place] [address] Care Team Providers Care Resp Therapist Name Role Phone Vanessa Ogden MD Primary Care Provider [phone] Jordan Castro MD Unavailable [phone] Soila Neumann MD Primary Care Provider [phone] Akhil Vergara DO Unavailable Encounter Details Date Type Department Care Team (Late st Contact Info) Description 03/12/2020 [employer] Message Enc [facility] Family & Internal Medicine [address] [address] [facility] Provider Appointment Social History Tobacco Use Types Packs/Day Years Used Date Smoking Tobacco: Never Smokeless Tobacco: Never Alcohol Use Standard Drinks/Week Comments Yes 0 (1 standard drink = 0.6 oz pur e alcohol) Rare use PHQ-2 Answer Date Recorded PHQ-2 Score 0 09/28/2018 Comments No Sex and Gender Information Value Date Recorded Sex Assigned at Female 06/28/2021 1:39 PM ENGINEER AND GEOLOGIST Legal Sex Female 3:51 PM ENGINEER AND GEOLOGIST Gender Identity Female 06/28/2021 1:39 PM ENGINEER AND GEOLOGIST Sexual Orientation Straight 06/28/2021 1: 39 PM ENGINEER AND GEOLOGIST COVID-19 Exposure Response Date Recorded In the last month, have you been in contact with someone who was confirmed or suspected to have Coronavirus / COVID-19? No / Unsure 02/21/2020 3:15 PM CDT documented as of this encounter Plan of Treatment Upcoming Encounters Date Type Department Care Team (Latest Contact Info) Description 02/21/2025 9:00 AM CDT Hospital Encounter [facility] Interventional [place] [address] [id number] Carolyn Fernando MD Three [facility] [address] [place] [address] 02/21/2025 9:00 AM CDT - 02/21/2025 9:20 AM CDT Surgery [facility] Interventional Pain [place] [address] [phone] Carolyn Fernando MD Three [facility] [address] [place] [address] BLOCK SACROILIAC JOINT 05/05/2025 1:00 PM ENGINEER AND GEOLOGIST Office Visit [facility] Family & Internal Medicine [address] [phone] [place] [address] [facility] [address]ree. [address] [place] [address] 08/15/2025 2:20 PM ENGINEER AND GEOLOGIST Office Visit [facility] Family & Internal [address] [phone] [place] [address] [facility] [place] [address] Scheduled Procedures Name Priority Associated Diagnoses Date/Ti me BLOCK SACROILIAC JOINT SI joint arthritis 02/21/2025 9:00 AM CDT documented as of this encounter Visit Diagnoses Not on filedocumented in this encounter Additional Health Concerns Infection Onset Date Last Indicated Resolved Time COVID-19 Rule Out 09/08/2021 09/08/2021 09/08/2021 10:37 AM ENGINEER AND GEOLOGIST documented as of this encounter Care Teams Resp Therapist Relationship Specialty Start Date End Date Vanessa Ogden MD PCP - General INTERNAL MEDICINE 08/14/18 08/10/22 [place] [address] [facility]. [address] [place], [place] [phone] PCP - General FAMILY PRACTICE 08/11/22 Jordan Castro MD [address] [place] [address] Surgeon ORTHOPAEDIC SURGERY 01/13/20 Akhil Vergara DO [address] [place] [address] INTERNAL MEDICINE 01/02/25 documented as of this encounter
--- OUTSIDE RECORDS SUMMARY | 2025-02-14 14:52 | XMS_ITS | Encounter Summary ---
Author Organization [facility] Address [address] [facility] [place] [address] Care Team Providers Care Breaker Mechanic Name Role Phone Vanessa Ogden MD Primary Care Provider [phone] Soila Neumann MD Primary Care Provider [phone] Reason for Visit * Reason Onset Date Comments Scheduling 09/05/2022 Left VM for resc heduling due to infusion center closing early 09/09/22 Encounter Details Date Type Department Care Team (Late st Contact Info) Description 09/05/2022 Telephone [facility] [address] [place] [address] Lisa Mayo, RN Scheduling (Left VM for [...] Sex Assigned at Female 08/31/2020 11:23 AM CALL CENTER SUPPORT REPRESENTATIVE Legal Sex Female 6:25 PM CALL CENTER SUPPORT REPRESENTATIVE Gender Identity Female 08/31/2020 11:23 AM CALL CENTER SUPPORT REPRESENTATIVE Sexual Orientation Straight 08/31/2020 11 :23 AM CALL CENTER SUPPORT REPRESENTATIVE documented as of this encounter Plan of Treatment Upcoming Encounters Date Type Department Care Team (Late st Contact Info) Description 03/14/2025 1:00 PM CDT Hospital Encounter [facility] - Rheumatology [address] [place] [address] 05/09/2025 1:00 PM CALL CENTER SUPPORT REPRESENTATIVE Appointment [facility] Rheumatology [address] [place] [address] [phone] 05/09/2025 1:20 PM CALL CENTER SUPPORT REPRESENTATIVE Office Visit [facility] Rheumatology [address] [place] [address] [phone] Kami Llanos MD [address] [place] [phone] documented as of this encounter Visit Diagnoses Not on filedocumented in this encounter Care Teams Breaker Mechanic Relationship Specialty Start Date End Date Vanessa Ogden MD PCP - General Internal Medicine 05/19/21 06/13/23 [place] [address] [address] PCP - General Family Medicine 06/14/23 documented as of this encounter
--- OUTSIDE RECORDS SUMMARY | 2025-02-14 14:52 | XMS_ITS | Encounter Summary ---
Author Organization [facility] Address [address] [place] [address] Care Team Providers Care Doffer Name Role Phone Jordan Castro MD Unavailable [phone] Soila Neumann MD Primary Care Provider [phone] Akhil Vergara DO Unavailable Encounter Details Date Type Department Care Team (Latest Contact Info) Description 02/13/2024 [employer] Message Enc [facility] Medical Group Multispecialty Care - [address], [address] [place] [address] Danette, [facility] Provider Recap on Phonecall Social History Tobacco [...] Assigned at Female 06/28/2021 1:39 PM DIRECTOR OF VETERANS A[employer] Legal Sex Female 3:51 PM DIRECTOR [employer] VET[employer]ANS [employer] Gender Identity Female 06/28/2021 1:39 PM DIRECTOR [employer]ANS [employer] Sexual Orientation Straight 06/28/2021 1: 39 PM DIRECTOR [employer] VETERANS A[employer] Occupation Industry Job Start Date Job End Date RETIRED Not on file Not on file Not on file documented as of this encounter Plan of Treatment Upcoming Encounters Date Type Department Care Team (Latest Contact Info) Description 02/21/2025 9:00 AM CDT Hospital Encounter [facility] Interventional Pain Management [place] [address] [id number] Carolyn Fernando MD Three [facility] [address] [place] [address] 02/21/2025 9:00 AM CDT - 02/21/2025 9:20 AM CDT Surgery [facility] Interventional Pain Management [place] [address] [id number] Carolyn Fernando MD Three [facility] [address] [place] [address] BLOCK SACROILIAC JOINT 05/05/2025 1:00 PM DIRECTOR OF VETERANS AFFA[employer] Office Visit [facility] Medical [facility] Family & Internal Medicine [address] [phone] [place] [address] [facility]. [address] [place] [address] 08/15/2025 2:20 PM DIRECTOR [employer] VETERANS A[employer] Office Visit [facility] Family & Internal Medicine [address] [phone] [place] [address] [facility] [employer]. [address] [place] [address] Scheduled Procedures Name Priority Associated Diagnoses Date/Ti me BLOCK SACROILIAC JOINT SI joint arthritis 02/21/2025 9:00 AM CDT documented as of this encounter Visit Diagnoses Not on filedocumented in this encounter Additional Health Concerns Assessment Noted Time PHQ-9 Depression Total Score: 2 08/03/19 23 2:16 PM [employer]OR [employer] VET[employer] documented as of this encounter Care Teams Doffer Relationship Specialty [place] [address] [address] [place] [address] PCP - General FAMILY PRACTICE 08/11/22 Jordan Castro MD [address] [facility] [address] [place] [address] Surgeon ORTHOPAEDIC SURGERY 01/13/20 Akhil Vergara DO [address] [place] [address] INTERNAL MEDICINE 01/02/25 documented as of this encounter
--- OUTSIDE RECORDS SUMMARY | 2025-02-14 14:52 | XMS_ITS | Encounter Summary ---
Author Organization [facility] Address [address] [place] [address] Care Team Providers Care Wealth Management Consultant Name Role Phone Jordan Castro MD Unavailable [phone] Soila Neumann MD Primary Care Provider [phone] Akhil Vergara DO Unavailable Encounter Details Date Type Department Care Team (Late st Contact Info) Description 06/15/2023 [employer] Message Enc [facility] Medical Group Family & Internal Medicine [facility] [phone] [place] [phone] Soila Neumann MD [address] [place] [address]. [address] [place] [address] update of health: Covid positive Social [...] Sex Assigned at Female 06/28/2021 1:39 PM DOUBLE BACK OPERATOR Legal Sex Female 3:51 PM DOUBLE BACK OPERATOR Gender Identity Female 06/28/2021 1:39 PM DOUBLE BACK OPERATOR Sexual Orientation Straight 06/28/2021 1: 39 PM DOUBLE BACK OPERATOR Occupation Industry Job Start Date Job End Date RETIRED Not on file Not on file Not on file documented as of this encounter Plan of Treatment Upcoming Encounters Date Type Department Care Team (Latest Contact Info) Description 02/21/2025 9:00 AM CDT Hospital Encounter [facility] Interventional [place] [address] [id number] Carolyn Fernando MD Three [facility] [address] [place] [address] 02/21/2025 9:00 AM CDT - 02/21/2025 9:20 AM CDT Surgery [facility] Interventional Pain [place] [address] [id number] Carolyn Fernando MD Three [facility] [address] [place] [address] BLOCK SACROILIAC JOINT 05/05/2025 1:00 PM DOUBLE BACK OPERATOR Office Visit [facility] Family & Internal Medicine [address] [phone] [place] [address] [place] [phone] 08/15/2025 2:20 PM DOUBLE BACK OPERATOR Office Visit [facility] Family & Internal Medicine [address] [phone] [place] [address] [employer]. [address] [place] [address] [phone] Scheduled Procedures Name Priority Associated Diagnoses Date/Ti me BLOCK SACROILIAC JOINT SI joint arthritis 02/21/2025 9:00 AM CDT documented as of this encounter Visit Diagnoses Not on filedocumented in this encounter Additional Health Concerns Assessment Noted Time PHQ-9 Depression Total Score: 2 08/03/19 23 2:16 PM DOUBLE BACK OPERATOR documented as of this encounter Care Teams Wealth Management Consultant Relationship Specialty [place] [address] [facility]. [address] [place] [address] PCP - General FAMILY PRACTICE 08/11/22 Jordan Castro MD [address] [place] [address] Surgeon ORTHOPAEDIC SURGERY 01/13/20 Akhil Vergara DO [address] [place] [address] INTERNAL MEDICINE 01/02/25 documented as of this encounter
--- OUTSIDE RECORDS SUMMARY | 2025-02-14 14:52 | XMS_ITS | Encounter Summary ---
Author Organization [facility] Address [address] [place] [address] Care Team Providers Care Flask Handler Name Role Phone Jordan Castro MD Unavailable [phone] Soila Neumann MD Primary Care Provider [phone] Akhil Vergara DO Unavailable Encounter Details Date Type Department Care Team (Late st Contact Info) Description 02/12/2024 [email or web address] Message Enc [facility] Medical Group Multispecialty Care - [facility] [address] [facility], [address] [place] [address] Dinesh Cruz DO [address] [facility] [address] [place] [address] medication NYSTOP Social History Tobacco Use Types [...] Sex Assigned at Female 06/28/2021 1:39 PM CAREER SERVICES REPRESENTATIVE Legal Sex Female 3:51 PM CAREER SERVICES REPRESENTATIVE Gender Identity Female 06/28/2021 1:39 PM CAREER SERVICES REPRESENTATIVE Sexual Orientation Straight 06/28/2021 1: 39 PM CAREER SERVICES REPRESENTATIVE Occupation Industry Job Start Date Job End Date RETIRED Not on file Not on file Not on file documented as of this encounter Plan of Treatment Upcoming Encounters Date Type Department Care Team (Latest Contact Info) Description 02/21/2025 9:00 AM CDT Hospital Encounter [facility] Interventional [place] [address] [id number] Carolyn Fernando MD Three [facility] [address] [place] [address] 02/21/2025 9:00 AM CDT - 02/21/2025 9:20 AM CDT Surgery [facility] Interventional Pain Management [place] [address] [phone] Carolyn Fernando MD Three [facility] [address] [place] [address] BLOCK SACROILIAC JOINT 05/05/2025 1:00 PM CAREER SERVICES REPRESENTATIVE Office Visit [facility] Family & Internal [address] [phone] [place] [address] [place] [phone] 08/15/2025 2:20 PM CAREER SERVICES REPRESENTATIVE Office Visit [facility] Family & Internal [address] [phone] [place] [address] [facility] [employer]. [address] [place] [address] [phone] Scheduled Procedures Name Priority Associated Diagnoses Date/Ti me BLOCK SACROILIAC JOINT SI joint arthritis 02/21/2025 9:00 AM CDT documented as of this encounter Visit Diagnoses Not on filedocumented in this encounter Additional Health Concerns Assessment Noted Time PHQ-9 Depression Total Score: 2 08/03/19 2:16 PM CAREER SERVICES REPRESENTATIVE documented as of this encounter Care Teams Flask Handler Relationship Specialty [place] [address] [address] [place] [address] PCP - General FAMILY PRACTICE 08/11/22 Jordan Castro MD [address] [place] [address] Surgeon ORTHOPAEDIC SURGERY 01/13/20 Akhil Vergara DO [address] [place] [address] INTERNAL MEDICINE 01/02/25 documented as of this encounter
--- OUTSIDE RECORDS SUMMARY | 2025-02-14 14:53 | XMS_ITS | Encounter Summary ---
Author Organization [facility] Address [address] [place] [address] Care Team Providers Care Obstetrician Name Role Phone Vanessa Ogden MD Primary Care Provider [phone] Jordan Castro MD Unavailable [phone] Soila Neumann MD Primary Care Provider [phone] Akhil Vergara DO Unavailable Encounter Details Date Type Department Care Team (Late st Contact Info) Description 11/13/2020 [employer] Message Enc [facility] Medical Group Family & Internal Medicine [facility] [address] [place] [address] [place] Ogden [place] [phone] [place] [address] Referral Request Social History Tobacco Use [...] Sex Assigned at Female 06/28/2021 1:39 PM COMPLIANCE DIRECTOR Legal Sex Female 3:51 PM COMPLIANCE DIRECTOR Gender Identity Female 06/28/2021 1:39 PM COMPLIANCE DIRECTOR Sexual Orientation Straight 06/28/2021 1: 39 PM COMPLIANCE DIRECTOR COVID-19 Exposure Response Date Recorded In the [...] Description 02/21/2025 9:00 AM CDT Hospital Encounter [facility] Interventional [place] [address] [phone] Carolyn Fernando MD Three [address] [address] 02/21/2025 9:00 AM CDT - 02/21/2025 9:20 AM CDT Surgery [facility] [place] [address] [phone] Carolyn Fernando MD Three [address] [address] BLOCK SACROILIAC JOINT 05/05/2025 1:00 PM COMPLIANCE DIRECTOR Office Visit [facility] Family & Internal Medicine [facility] [address] [place] [phone] [place] [address] [place] [address] 08/15/2025 2:20 PM COMPLIANCE DIRECTOR Office Visit [facility] Family & Internal Medicine [facility] [address] [place] [phone] [place] [address] [address] [place] [address] Scheduled Procedures Name Priority Associated Diagnoses Date/Ti me BLOCK SACROILIAC JOINT SI joint arthritis 02/21/2025 9:00 AM CDT documented as of this encounter Visit Diagnoses Not on filedocumented in this encounter Additional Health Concerns Infection Onset Date Last Indicated Resolved Time COVID-19 Rule Out 09/08/2021 09/08/2021 09/08/2021 10:37 AM COMPLIANCE DIRECTOR documented as of this encounter Care Teams Obstetrician Relationship Specialty Start Date End Date Vanessa Ogden MD PCP - General INTERNAL MEDICINE 08/14/18 08/10/22 [place] [address] [address] [place] [address] PCP - General FAMILY PRACTICE 08/11/22 Jordan Castro MD [address] [place] [address] Surgeon ORTHOPAEDIC SURGERY 01/13/20 Akhil Vergara DO [address] [place], [place] [phone] INTERNAL MEDICINE 01/02/25 documented as of this encounter
--- OUTSIDE RECORDS SUMMARY | 2025-02-14 14:53 | XMS_ITS | Encounter Summary ---
Author Organization [facility] Address [address] [place] [address] Care Team Providers Care Mapper Name Role Phone Vanessa Ogden MD Primary Care Provider [phone] Jordan Castro MD Unavailable [phone] Soila Neumann MD Primary Care Provider [phone] Akhil Vergara DO Unavailable Encounter Details Date Type Department Care Team (Late st Contact Info) Description 06/21/2021 I Am Advertisingt Message Enc [facility] Medical Group Family & Internal Medicine [facility] [address] [place] [address] [place] [address] [place] [address] Question Social History Tobacco Use Types [...] Sex Assigned at Female 06/28/2021 1:39 PM SOIL CONSERVATION AIDE Legal Sex Female 3:51 PM SOIL CONSERVATION AIDE Gender Identity Female 06/28/2021 1:39 PM SOIL CONSERVATION AIDE Sexual Orientation Straight 06/28/2021 1: 39 PM SOIL CONSERVATION AIDE Occupation Industry Job Start Date Job End Date RETIRED Not on file Not on file Not on file documented as of this encounter Plan of Treatment Upcoming Encounters Date Type Department Care Team (Latest Contact Info) Description 02/21/2025 9:00 AM CDT Hospital Encounter [facility] Interventional [place] [address] [id number] Carolyn Fernando MD Three [facility] [address] [place] [address] 02/21/2025 9:00 AM CDT - 02/21/2025 9:[address] [facility] Interventional [place] [address] [id number] Carolyn Fernando MD Three [facility] [address] [place] [address] BLOCK SACROILIAC JOINT 05/05/2025 1:00 PM SOIL CONSERVATION AIDE Office Visit [facility] Family & Internal Medicine [address] [phone] [place] [address] [place] [address] 08/15/2025 2:20 PM SOIL CONSERVATION AIDE Office Visit [facility] Family & Internal Medicine [address] [phone] [place] [address] [place] [address] Scheduled Procedures Name Priority Associated Diagnoses Date/Ti me BLOCK SACROILIAC JOINT SI joint arthritis 02/21/2025 9:00 AM CDT documented as of this encounter Visit Diagnoses Not on filedocumented in this encounter Additional Health Concerns Infection Onset Date Last Indicated Resolved Time COVID-19 Rule Out 09/08/2021 09/08/2021 09/08/2021 10:37 AM SOIL CONSERVATION AIDE documented as of this encounter Care Teams Mapper Relationship Specialty Start Date End Date Vanessa Ogden MD PCP - General INTERNAL MEDICINE 08/14/18 08/10/22 [place] [address] [facility] [place] [address] PCP - General FAMILY PRACTICE 08/11/22 Jordan Castro MD [address] [facility] [address] [place] [address] Surgeon ORTHOPAEDIC SURGERY 01/13/20 Akhil Vergara DO [address] [place] [address] INTERNAL MEDICINE 01/02/25 documented as of this encounter
--- OUTSIDE RECORDS SUMMARY | 2025-02-14 14:53 | XMS_ITS | Encounter Summary ---
Author Organization [facility] Address [address] [place] [address] Care Team Providers Care Miller Helper Distillery Name Role Phone Vanessa Ogden MD Primary Care Provider [phone] Jordan Castro MD Unavailable [phone] Soila Neumann MD Primary Care Provider [phone] Akhil Vergara DO Unavailable Encounter Details Date Type Department Care Team (Late st Contact Info) Description 11/26/2020 Firepro Systemst Message Enc [facility] Medical Group Family & Internal Medicine [facility] [address] [place] [address] [place] [address] [place] [address] Follow Up/Update Social History Tobacco Use [...] Sex Assigned at Female 06/28/2021 1:39 PM TILE GRADER Legal Sex Female 3:51 PM TILE GRADER Gender Identity Female 06/28/2021 1:39 PM TILE GRADER Sexual Orientation Straight 06/28/2021 1: 39 PM TILE GRADER COVID-19 Exposure Response Date Recorded In the last month, have you been in contact with someone who was confirmed or suspected to have Coronavirus / COVID-19? No / Unsure 11/20/2020 10:10 AM CDT documented as of this encounter Plan of Treatment Upcoming Encounters Date Type Department Care Team (Latest Contact Info) Description 02/21/2025 9:00 AM CDT Hospital Encounter [facility] Interventional [place] [address] [id number] Carloyn Fernando MD Three [facility] [address] [place] [address] 02/21/2025 9:00 AM CDT - 02/21/2025 9:20 AM CDT Surgery [facility] [place]ventional [place] [address] [id number] Carolyn Fernando MD Three [facility] [address] [place] [address] BLOCK SACROILIAC JOINT 05/05/2025 1:00 PM TILE GRADER Office Visit [facility] Family & Internal Medicine [address] [address] Soila Neumann MD [address] [place] [address] [phone] 08/15/2025 2:20 PM TILE GRADER Office Visit [facility] Family & Internal Medicine [address] [address] [place] [address] [address] [place] [address] Scheduled Procedures Name Priority Associated Diagnoses Date/Ti me BLOCK SACROILIAC JOINT SI joint arthritis 02/21/2025 9:00 AM CDT documented as of this encounter Visit Diagnoses Not on filedocumented in this encounter Additional Health Concerns Infection Onset Date Last Indicated Resolved Time COVID-19 Rule Out 09/08/2021 09/08/2021 09/08/2021 10:37 AM TILE GRADER documented as of this encounter Care Teams Miller Helper Distillery Relationship Specialty Start Date End Date Vanessa Ogden MD PCP - General INTERNAL MEDICINE 08/14/18 08/10/22 [place] [address] [address] [place] [address] PCP - General FAMILY PRACTICE 08/11/22 Jordan Castro MD [address] [place], [place] [id number] Surgeon ORTHOPAEDIC SURGERY 01/13/20 kAhil Vergara DO [address] [place] [address] INTERNAL MEDICINE 01/02/25 documented as of this encounter
--- OUTSIDE RECORDS SUMMARY | 2025-02-14 14:53 | XMS_ITS | Encounter Summary ---
Author Organization [facility] Address [address] [place] [address] Care Team Providers Care Flatwork Catcher Name Role Phone Vanessa Ogden MD Primary Care Provider [phone] Jordan Castro MD Unavailable [phone] Soila Neumann MD Primary Care Provider [phone] Akhil Vergara DO Unavailable Encounter Details Date Type Department Care Team (Late st Contact Info) Description 02/18/2021 Enkiat Message Enc [facility] Medical Group Family & Internal Medicine [facility] [address] [place] [address] [place] Og[place] [id number] [place] [address] RE: Medication Questions Social History Tobacco [...] Sex Assigned at Female 06/28/2021 1:39 PM TEARER PRESS CLIPPING Legal Sex Female 3:51 PM TEARER PRESS CLIPPING Gender Identity Female 06/28/2021 1:39 PM TEARER PRESS CLIPPING Sexual Orientation Straight 06/28/2021 1: 39 PM TEARER PRESS CLIPPING COVID-19 Exposure Response Date Recorded In the [...] Description 02/21/2025 9:00 AM CDT Hospital Encounter [facility] Interventional [place] [address] [id number] Carolyn Fernando MD [facility] [address] [place] [address] 02/21/2025 9:00 AM CDT - 02/21/2025 9:20 AM CDT Surgery [facility] [place] [address] [id number] Carolyn Fernando MD Three [facility] [address] [place] [address] BLOCK SACROILIAC JOINT 05/05/2025 1:00 PM TEARER PRESS CLIPPING Office Visit [facility] Medical Group Family & Internal Medicine [address] [address] Soila Neumann MD [address] [place] [address] [place] [address] 08/15/2025 2:20 PM TEARER PRESS CLIPPING Office Visit [facility] Medical Group Family & Internal Medicine - [place] [address] [place] [phone] [place] [address] [facility] [place]. [address] [place] [address] Scheduled Procedures Name Priority Associated Diagnoses Date/Ti me BLOCK SACROILIAC JOINT SI joint arthritis 02/21/2025 9:00 AM CDT documented as of this encounter Visit Diagnoses Not on filedocumented in this encounter Additional Health Concerns Infection Onset Date Last Indicated Resolved Time COVID-19 Rule Out 09/08/2021 09/08/2021 09/08/2021 10:37 AM TEARER PRESS CLIPPING documented as of this encounter Care Teams Flatwork Catcher Relationship Specialty Start Date End Date Vanessa Ogden MD PCP - General INTERNAL MEDICINE 08/14/18 08/10/22 [place] [address] [facility]. [address] [place] [address] PCP - General FAMILY PRACTICE 08/11/22 Jordan Castro MD [address] [place] [address] [address] [place] [address] Surgeon ORTHOPAEDIC SURGERY 01/13/20 Akhli Vergara DO [address] [place] [address] INTERNAL MEDICINE 01/02/25 documented as of this encounter
--- OUTSIDE RECORDS SUMMARY | 2025-02-14 14:53 | XMS_ITS | Encounter Summary ---
Author Organization [facility] Address [address] [place] [address] Care Team Providers Care Forming Process Worker Name Role Phone Vanessa Ogden MD Primary Care Provider [phone] Jordan Castro MD Unavailable [phone] Soila Neumann MD Primary Care Provider [phone] Akhil Vergara DO Unavailable Encounter Details Date Type Department Care Team (Late st Contact Info) Description 02/17/2021 Baila Gamest Message Enc [facility] Medical Group Family & Internal Medicine [facility] [address] [place] [address] [place] [address] [place] [address] Question Social History Tobacco Use [...] Sex Assigned at Female 06/28/2021 1:39 PM SOLUTION MIXER Legal Sex Female 3:51 PM SOLUTION MIXER Gender Identity Female 06/28/2021 1:39 PM SOLUTION MIXER Sexual Orientation Straight 06/28/2021 1: 39 PM SOLUTION MIXER COVID-19 Exposure Response Date Recorded In the last month, have you been in contact with someone who was confirmed or suspected to have Coronavirus / COVID-19? No / Unsure 02/03/2021 1:16 PM CDT documented as of this encounter Plan of Treatment Upcoming Encounters Date Type Department Care Team (Latest Contact Info) Description 02/21/2025 9:00 AM CDT Hospital Encounter [facility] Interventional [place] [address] [id number] Carolyn Fernando MD Three [facility] [address] [place] [address] 02/21/2025 9:00 AM CDT - 02/21/2025 9:20 AM CDT Surgery [facility] Interventional Pain [place] [address] [id number] Carolyn Fernando MD Three [facility] [address] [place] [address] BLOCK SACROILIAC JOINT 05/05/2025 1:00 PM SOLUTION MIXER Office Visit [facility] Family & Internal Medicine [address] [address] [place] [address] [facility] [address] [place] [address] [id number] 08/15/2025 2:20 PM SOLUTION MIXER Office Visit [facility] Family & Internal Medicine [address] [address] [place] [address] [address] [place] [address] Scheduled Procedures Name Priority Associated Diagnoses Date/Ti me BLOCK SACROILIAC JOINT SI joint arthritis 02/21/2025 9:00 AM CDT documented as of this encounter Visit Diagnoses Not on filedocumented in this encounter Additional Health Concerns Infection Onset Date Last Indicated Resolved Time COVID-19 Rule Out 09/08/2021 09/08/2021 09/08/2021 10:37 AM SOLUTION MIXER documented as of this encounter Care Teams Forming Process Worker Relationship Specialty Start Date End Date Vanessa Ogden MD PCP - General INTERNAL MEDICINE 08/14/18 08/10/22 [place] [address] [address] [place] [address] PCP - General FAMILY PRACTICE 08/11/22 Jordan Castro MD [address] [place] [address] Surgeon ORTHOPAEDIC SURGERY 01/13/20 Akhil Vergara DO [address] [place] [address] INTERNAL MEDICINE 01/02/25 documented as of this encounter
--- OUTSIDE RECORDS SUMMARY | 2025-02-14 14:53 | XMS_ITS | Encounter Summary ---
Author Organization [facility] Address [address] [place] [address] Care Team Providers Care Utility Maintenance Worker Name Role Phone Vanessa Ogden MD Primary Care Provider [phone] Jordan Castro MD Unavailable [phone] Soila Neumann MD Primary Care Provider [phone] Akhil Vergara DO Unavailable Encounter Details Date Type Department Care Team (Late st Contact Info) Description 05/03/2021 QRcaot Message Enc [facility] Medical Group Family & Internal Medicine [facility] [address] [place] [address] Vanessa Og[place] [id number] [place] [address] RE: Medication Questions Social History Tobacco [...] Sex Assigned at Female 06/28/2021 1:39 PM EXTRUDING PRESS OPERATOR Legal Sex Female 3:51 PM EXTRUDING PRESS OPERATOR Gender Identity Female 06/28/2021 1:39 PM EXTRUDING PRESS OPERATOR Sexual Orientation Straight 06/28/2021 1: 39 PM EXTRUDING PRESS OPERATOR Occupation Industry Job Start Date [...] Description 02/21/2025 9:00 AM CDT Hospital Encounter [facility] Interventional [place] [address] [id number] Carolyn Fernando MD [address] [address] 02/21/2025 9:00 AM CDT - 02/21/2025 9:20 AM CDT Surgery [facility] Interventional [place] [address] [id number] Carolyn Fernando MD [address] [address] BLOCK SACROILIAC JOINT 05/05/2025 1:00 PM EXTRUDING PRESS OPERATOR Office Visit [facility] Medical Group Family & Internal Medicine [address] [address] [place] [address] [place] [address] 08/15/2025 2:20 PM EXTRUDING PRESS OPERATOR Office Visit [facility] Medical Group Family & Internal Medicine - [place] [address] [place] [phone] [place] [address] [place] [address] Scheduled Procedures Name Priority Associated Diagnoses Date/Ti me BLOCK SACROILIAC JOINT SI joint arthritis 02/21/2025 9:00 AM CDT documented as of this encounter Visit Diagnoses Not on filedocumented in this encounter Additional Health Concerns Infection Onset Date Last Indicated Resolved Time COVID-19 Rule Out 09/08/2021 09/08/2021 09/08/2021 10:37 AM EXTRUDING PRESS OPERATOR documented as of this encounter Care Teams Utility Maintenance Worker Relationship Specialty Start Date End Date Vanessa Ogden MD PCP - General INTERNAL MEDICINE 08/14/18 08/10/22 [place] [address] [address] [place] [address] PCP - General FAMILY PRACTICE 08/11/22 Jordan Castro MD [address] [facility] [address] [place] [address] Surgeon ORTHOPAEDIC SURGERY 01/13/20 Akhil Vergara DO [address] [place] [address] INTERNAL MEDICINE 01/02/25 documented as of this encounter
--- NOTE | 2025-02-14 15:01 | ECG_ITS ---
Test Date: 2025-02-14 15:06:19 Measurements Intervals [place] Rate: 95 P: 53 ND: 276 QRS: 61 QRSD: 106 T: 52 QT: 340 QTc: 428 Interpretive Statements SINUS RHYTHM WITH FIRST DEGREE AV BLOCK BORDERLINE ECG No previous ECG available for comparison Electronically Signed On 02-14-2025 16:23:57 CDT by Akhil Vergara D.O.
[2025-02-14 15:15] LABS: Hematocrit 37.2 % (37.0-47.0); Hemoglobin 12.1 g/dL (12.0-15.0); Immature Granulocyte Percent A 0.9 % (0-0.5); Lymphocytes Absolute Auto 1.64 K/mm3 (0.9-3.2); Mean Corpuscular HGB Conc 32.5 g/dl (32-36); Mean Corpuscular Hemoglobin 30.3 pg (26-34); Mean Corpuscular Volume 93.2 fl (80-100); Nucleated Red Blood Cells Absolute Auto 0.000 K/mm3 (0.0-0.012); Nucleated Red Blood Cells Perc 0.0 % (0.0-0.2); Platelet Count Result 277 k/mm3 (150-375); Red Blood Count 3.99 M/mm3 (4.2-5.4); White Blood Count 14.1 K/mm3 (4.5-10.0)
[2025-02-14 15:19] LABS: Add Urine Microscopic? NO; Appearance Urine Clear (Clear); Glucose Urine UA Trace mg/dL (Negative); Leukocyte Esterase Ur Negative LEU/UL (Negative); Nitrate Urine Negative (Negative); Specific Grav Ur 1.025 (1.001-1.035)
[2025-02-14 15:24] LABS: Alanine Aminotransferase 23 U/L (6-35); Albumin Level 4.2 g/dL (3.5-5.1); Alkaline Phosphatase 53 U/L (38-126); Anion Gap 10 mmol/L (4-12); Aspartate Amino Transferase 28 U/L (14-36); Bilirubin,Total 0.3 mg/dL (0.2-1.3); Blood Urea Nitrogen 25 mg/dL (7-17); Calcium 9.6 mg/dL (8.4-10.2); Carbon Dioxide 23 mmol/L (22-30); Chloride 103 mmol/L (98-107); Estimated CRCL calculation 73 ml/min; Estimated Glomerular Filt Rate > 60; Glucose 168 mg/dL (65-110); Potassium 3.9 mmol/L (3.4-5.0); Sodium 136 mmol/L (137-145); Total Protein 7.2 g/dL (6.3-8.2)
[2025-02-14 15:36] LABS: NT Pro B Type Natriuretic Pept 193 pg/mL (19.9-100); Troponin I < 0.012 ng/mL (0.000-0.034)
[2025-02-14 15:37] LABS: INR 1.2; Prothrombin Time 15.1 Seconds (11.1-14.7)
[2025-02-14 15:38] LABS: Partial Thromboplastin Time 41.9 Seconds (22.3-36.8)
[2025-02-14 16:20] VITALS: BP 124/68; PULSE 88; RESP 19; O2SAT 97
--- OUTSIDE RECORDS SUMMARY | 2025-02-14 16:30 | XMS_ITS | Encounter Summary ---
Author Organization [facility] Address [address] [place] [address] Care Team Providers Care Seed Buyer Name Role Phone Vanessa Ogden MD Primary Care Provider [phone] Jordan Castro MD Unavailable [phone] Soila Neuamnn MD Primary Care Provider [phone] Akhil Vergara DO Unavailable Encounter Details Date Type Department Care Team (Late st Contact Info) Description 05/02/2019 Xlumenat Message Enc [facility] Medical Group Family & Internal Medicine [facility] [address] [place] [address] [place]essa Ogden [place] [address] [place] [address] RE: Question Social History Tobacco Use Types Packs/Day Years Used Date Smoking Tobacco: Never Smokeless Tobacco: Never Alcohol Use Standard Drinks/Week Comments Yes 0 (1 standard drink = 0.6 oz pur e alcohol) Rare use PHQ-2 Answer Date Recorded PHQ-2 Score 0 09/28/2018 Comments No Sex and Gender Information Value Date Recorded Sex Assigned at Female 06/28/2021 1:39 PM MEDICAL SERVICE REPRESENTATIVE Legal Sex Female 3:51 PM MEDICAL SERVICE REPRESENTATIVE Gender Identity Female 06/28/2021 1:39 PM MEDICAL SERVICE REPRESENTATIVE Sexual Orientation Straight 06/28/2021 1: 39 PM MEDICAL SERVICE REPRESENTATIVE documented as of this encounter Plan of Treatment Upcoming Encounters Date Type Department Care Team (Latest Contact Info) Description 02/21/2025 9:00 AM CDT Hospital Encounter [facility] [place] [address] [id number] Carolyn Fernando MD Three [facility] [address] [place] [address] 02/21/2025 9:00 AM CDT - 02/21/2025 9:20 AM CDT Surgery [facility] Interventional [place] [address] [id number] Carolyn Fernando MD Three [facility] [address] [place] [address] BLOCK SACROILIAC JOINT 05/05/2025 1:00 PM MEDICAL SERVICE REPRESENTATIVE Office Visit [facility] Family & Internal Medicine [address] [phone] [place] [address] [place] [address] 08/15/2025 2:20 PM MEDICAL SERVICE REPRESENTATIVE Office Visit [facility] Family & Internal [address] [phone] [place] [address] [place] [address] Scheduled Procedures Name Priority Associated Diagnoses Date/Ti me BLOCK SACROILIAC JOINT SI joint arthritis 02/21/2025 9:00 AM CDT documented as of this encounter Visit Diagnoses Not on filedocumented in this encounter Additional Health Concerns Infection Onset Date Last Indicated Resolved Time COVID-19 Rule Out 09/08/2021 09/08/2021 09/08/2021 10:37 AM MEDICAL SERVICE REPRESENTATIVE documented as of this encounter Care Teams Seed Buyer Relationship Specialty Start Date End Date Vanessa Ogden MD PCP - General INTERNAL MEDICINE 08/14/18 08/10/22 [place] [address] [facility] [address] [place], [place] [phone] PCP - General FAMILY PRACTICE 08/11/22 Jodran Castro MD [address] [place] [address] Surgeon ORTHOPAEDIC SURGERY 01/13/20 Akhil Vergara DO [address] [place], [place] [id number] INTERNAL MEDICINE 01/02/25 documented as of this encounter
--- OUTSIDE RECORDS SUMMARY | 2025-02-14 16:30 | XMS_ITS | Encounter Summary ---
Author Organization [facility] Address [address] [place] [address] Care Team Providers Care Diamond Driller Helper Name Role Phone Vanessa Ogden MD Primary Care Provider [phone] Jordan Castro MD Unavailable [phone] Soila Neumann MD Primary Care Provider [phone] Akhil Vergara DO Unavailable Encounter Details Date Type Department Care Team (Late st Contact Info) Description 10/21/2019 MyChart Message Enc [facility] Medical Group Family & Internal Medicine [facility] [address] [place] [address] [place] Ogden [place] [phone] [place] [address] RE: Follow Up/Update Social History Tobacco Use Types Packs/Day Years Used Date Smoking Tobacco: Never Smokeless Tobacco: Never Alcohol Use Standard Drinks/Week Comments Yes 0 (1 standard drink = 0.6 oz pur e alcohol) Rare use PHQ-2 Answer Date Recorded PHQ-2 Score 0 09/28/2018 Comments No Sex and Gender Information Value Date Recorded Sex Assigned at Female 06/28/2021 1:39 PM COPY PREPARER Legal Sex Female 3:51 PM COPY PREPARER Gender Identity Female 06/28/2021 1:39 PM COPY PREPARER Sexual Orientation Straight 06/28/2021 1: 39 PM COPY PREPARER documented as of this encounter Plan of Treatment Upcoming Encounters Date Type Department Care Team (Latest Contact Info) Description 02/21/2025 9:00 AM CDT Hospital Encounter [facility] [place] [address] [id number] Carolyn Fernando MD Three [facility] [address] [place] [address] 02/21/2025 9:00 AM CDT - 02/21/2025 9:20 AM CDT Surgery [facility] Interventional Pain [place] [address] [id number] Carolyn Fernando MD Three [facility] [address] [place] [address] BLOCK SACROILIAC JOINT 05/05/2025 1:00 PM COPY PREPARER Office Visit [facility] Family & Internal Medicine [address] [address] [place] [address] [facility] [address] [place] [address] 08/15/2025 2:20 PM COPY PREPARER Office Visit [facility] Family & Internal [address] [phone] [place] [address] [facility] [address] [place] [address] Scheduled Procedures Name Priority Associated Diagnoses Date/Ti me BLOCK SACROILIAC JOINT SI joint arthritis 02/21/2025 9:00 AM CDT documented as of this encounter Visit Diagnoses Not on filedocumented in this encounter Additional Health Concerns Infection Onset Date Last Indicated Resolved Time COVID-19 Rule Out 09/08/2021 09/08/2021 09/08/2021 10:37 AM COPY PREPARER documented as of this encounter Care Teams Diamond Driller Helper Relationship Specialty Start Date End Date Vanessa Ogden MD PCP - General INTERNAL MEDICINE 08/14/18 08/10/22 [place] [address] [facility]. [address] [place] [address] PCP - General FAMILY PRACTICE 08/11/22 Jordan Castro MD [address] [place] [address] Surgeon ORTHOPAEDIC SURGERY 01/13/20 Akhil Vergara DO [address] [place], [place] [address] INTERNAL MEDICINE 01/02/25 documented as of this encounter
--- OUTSIDE RECORDS SUMMARY | 2025-02-14 16:30 | XMS_ITS | Encounter Summary ---
Author Organization [facility] Address [address] [place] [address] Care Team Providers Care Veneer Production Machine Operator Name Role Phone Vnaessa Ogden MD Primary Care Provider [phone] Jordan Castro MD Unavailable [phone] Soila Neumann MD Primary Care Provider [phone] Akhil Vergara DO Unavailable Encounter Details Date Type Department Care Team (Late st Contact Info) Description 08/30/2021 Zinkia Message Enc [facility] Family & Internal Medicine [facility] [address] [place] [address] [place] [address] [place] [address] Refill request: Hydrocodone 7.5/325 Social History [...] Sex Assigned at Female 06/28/2021 1:39 PM [employer] Legal Sex Female 3:51 PM [employer] Gender Identity Female 06/28/2021 1:39 PM [employer] Sexual Orientation Straight 06/28/2021 1: 39 PM [employer] Occupation Industry Job Start Date Job End Date RETIRED Not on file Not on file Not on file COVID-19 Exposure Response Date Recorded In the last 10 days, have yo u been in contact with someone who was confirmed or suspected to have Coronavirus/COVID-19? No / Unsure 08/13/2021 11:10 AM [employer] documented as of this encounter Progress Notes * Gilma Barreto RN - 08/30/2021 2:46 PM CST Please advise [employer] documented in this encounter Plan of Treatment Upcoming Encounters Date Type Department Care Team (Latest Contact Info) Description 02/21/2025 9:00 AM CDT Hospital Encounter [facility] [place] [address] [id number] Carolyn Fernando MD [address] [address] 02/21/2025 9:00 AM CDT - 02/21/2025 9:20 AM CDT Surgery [facility] [place] [address] [id number] Carolyn Fernando MD [address] [address] BLOCK SACROILIAC JOINT 05/05/2025 1:00 PM [employer] Office Visit [facility] Medical [facility] Family & Internal Medicine [address] [address] [place] [address] [place] [address] 08/15/2025 2:20 PM [employer] Office Visit [facility] Family & Internal Medicine - [place] [address] [place] [phone] [place] [address] [place] [address] Scheduled Procedures Name Priority Associated Diagnoses Date/Ti me BLOCK SACROILIAC JOINT SI joint arthritis 02/21/2025 9:00 AM CDT documented as of this encounter Visit Diagnoses Not on filedocumented in this encounter Additional Health Concerns Infection Onset Date Last Indicated Resolved Time COVID-19 Rule Out 09/08/2021 09/08/2021 09/08/2021 10:37 AM [employer] documented as of this encounter Care Teams Veneer Production Machine Operator Relationship Specialty Start Date End Date Vanessa Ogden MD PCP - General INTERNAL MEDICINE 08/14/18 08/10/22 [place] [address] [place] [address] PCP - General FAMILY PRACTICE 08/11/22 Jordan Castro MD [address] [place] [address] [address] [place] [address] Surgeon ORTHOPAEDIC SURGERY 01/13/20 Akhil Vergara DO [address] [place] [address] INTERNAL MEDICINE 01/02/25 documented as of this encounter
--- OUTSIDE RECORDS SUMMARY | 2025-02-14 16:30 | XMS_ITS | Clinical Summary ---
Author Organization [facility] Address [address] [place] [address] Care Team Providers Care Laboratory Aide Name Role Phone Soila Neumann MD Primary Care Provider [phone] Source Comments [facility]non-owned Affiliates and Associated Physician Practices is amultiple site organization consisting of ambulatory clinics and hospital sitesin [place], [place], [place] and [place]. This disclosure is being madepursuant to the Care Everywhere program and may not contain all information available regarding this patient. Last updated 18.[facility] Allergies Active Allergy Reactions Criticality Noted Date [...] patient. azelastine (ASTELIN) 0.1 % nasal spray [place] 1 (one) spray into each nostril once [...] naloxone HCl (Narcan) 4 MG/0.1ML nasal spray [place] 1 (one) spray into the nose as [...] - 01/17/2025 11:59 PM CDT Hospital Encounter [facility] - Rheumatology [address] [place] [address] Kami Llanos MD Rheumatology Discharge Disposition: Home or Self Care 12/20/2024 9:40 AM CDT - 12/20/2024 11:59 PM CDT Hospital Encounter [facility] Rhe[facility]ology [address] [place] [address] Kami Llanos MD Rheumatology Discharge Disposition: Home or Self Care 12/04/2024 Orders Only [facility] - Rheumatology [address], [address] [place] [address] Kami Llanos MD 12/04/2024 Travel 11/30/2024 Results Follow-Up [address] [address] Kami Llanos MD 11/30/2024 Results Follow-Up [address] [address] Kami Llanos MD 11/29/2024 2:00 PM CDT Office Visit [address] [address] Kami Llanos MD Dysuria (Primary Dx); Seronegative rheumatoid arthritis (HCC) 11/29/[address] [address] Kami Llanos MD Medication Prior Auth Request 11/22/2024 11:43 AM CDT - 11/22/2024 11:59 PM CDT Hospital Encounter [address] [address] Kami Llanos MD Rheumatology Discharge Disposition: Home [...] Sex Assigned at Female 08/31/2020 11:23 AM BUSH REGENERATOR Legal Sex Female 6:25 PM BUSH REGENERATOR Gender Identity Female 08/31/2020 11:23 AM BUSH REGENERATOR Sexual Orientation Straight 08/31/2020 11 :23 AM BUSH REGENERATOR Last Filed Vital Signs Vital Sign Reading [...] 165.1 cm (5' 5) 06/14/2024 11:51 AM BUSH REGENERATOR Body Mass Index 39.44 06/14/2024 11:51 AM BUSH REGENERATOR Plan of Treatment Upcoming Encounters Date Type Department Care Team (Late st Contact Info) Description 03/14/2025 1:00 PM CDT Hospital Encounter [facility] - Rheumatology [address] [place] [address] 05/09/2025 1:00 PM BUSH REGENERATOR Appointment [facility] - Rheumatology [address] [place] [address] 05/09/2025 1:20 PM BUSH REGENERATOR Office Visit [facility] - Rheumatology [address] [place] [address] Kami Llanos MD [address] [place] [phone] Health Maintenance Due Date Last Done [...] SCREEN ACUTE ([facility]) Routine 06/14/2024 12:50 PM BUSH REGENERATOR Seropositive rheumatoid arthritis Encounter for other specified special examinations from Last 3 Months or Most Recently Relevant to Health Maintenance Results * URINALYSIS W/MICROSCOPIC REFLEX TO CULTURE (11/29/2024 3:02 PM CDT) Specific [place] UA 1.019 1.005 - 1.030 [facility] INSURANCE [...] reflex to a Urine Culture. Performed at: [address] [id number] Molded Parts Inspector: John Caban PhD, Phone: [phone] WBC UA 0-5 0 - 5 /hpf [...] - 11/30/2024 7:09 AM CDT Performed at: [address] [id number] Molded Parts Inspector: John Caban PhD, Phone: [phone] us Kami Llanos MD LAB - URINALYSIS ORDERABLES Elizabeth l Result [facility] INSURANCE BILL [address] [place] [address] * PROTEIN CREATININE RATIO URINE RANDOM PNL [...] - 11/30/2024 1:09 PM CDT Performed at: [address] [place] [id number] Molded Parts Inspector: John Caban PhD, Phone: [phone] Kami Llanos MD LAB - URINE CHEMISTRY ORDERABLES Final Result Performing Organization Address [facility]/ZIP Co de Phone Number [facility] INSURANCE BILL [address] [place] [phone] * C-REACTIVE PROTEIN (11/29/2024 3:01 PM CDT) C-Reactive Protein <1 0 - 10 mg/L [facility] INSURANCE BILL Blood BLOOD SPECIMEN / Unknown 11/29/2024 3:01 PM CDT 11/29/2024 Narrative [facility] INSURANCE BILL - 11/30/2024 9:10 AM CDT Performed at: [address] [place] [id number] Molded Parts Inspector: John Caban PhD, Phone: [phone] Kami Llanos MD LAB - CHEMISTRY ORDERABLES Final Result Performing Organization Address [facility] de Phone Number [facility] INSURANCE BILL [address] [place] [phone] * ERYTHROCYTE SEDIMENTATION RATE (11/29/2024 3:01 PM CDT) Erythrocyte Sedimentation Rate Westergren 2 0 - 40 mm/hr [facility] INSURANCE BILL Blood BLOOD SPECIMEN / Unknown 11/29/2024 3:01 PM CDT 11/29/2024 Narrative [facility] INSURANCE BILL - 11/30/2024 7:09 AM CDT Performed at: [address] [place] [id number] Molded Parts Inspector: John Caban PhD, Phone: [phone] us Kami Llanos MD LAB - HEMATOLOGY ORDERABLES Elizabeth l Result [facility] INSURANCE BILL [address] [place] [address] * CBC WITH DIFFERENTIAL (11/29/2024 3:01 PM [...] 7:09 AM CDT Performed at: 01 - [facility] [address] [place], [place] [id number] Molded Parts Inspector: John Caban PhD, Phone: [phone] Kami Llanos MD LAB - HEMATOLOGY ORDERABLES Elizabeth l Result [facility] INSURANCE BILL [address] [place] [address] * (ABNORMAL) COMPREHENSIVE METABOLIC PANEL (11/29/2024 3:01 PM CDT) [facility] Glucose 134(H) 70 - 99 mg/dL [...] 7:09 AM CDT Performed at: 01 - [facility] [id number] Molded Parts Inspector: John Caban PhD, Phone: [phone] Kami Llanos MD LAB - CHEMISTRY ORDERABLES Final Result Performing Organization Address [facility] Co de Phone Number [facility] INSURANCE BILL [address] [place] [address] * HEPATITIS SCREEN ACUTE ([facility]) (06/14/2024 12:50 PM BUSH REGENERATOR) Hepatitis A Virus Antibody IgM Negative Negative [facility] INSURANCE BILL Comment: A negative anti-HAV IgM result suggests no recent or current HAV infection. Hepatitis B Virus Surface Antigen Negative Negative [facility] INSURANCE BILL Hepatitis B Core Virus Antibody IgM Negative Negative [facility] INSURANCE BILL Hepatitis C Antibody Non Reactive Non Reactive [facility] INSURANCE BILL Comment: Performed at: [address] [id number] Molded Parts Inspector: John Caban PhD, Phone: [phone] Interpretation Comment [facility] INSURANCE BILL Comment: Not infected with HCV unless early or acute infection is suspected (which may be delayed in an immunocompromised individual), or other evidence exists to indicate HCV infection. Blood BLOOD SPECIMEN / Unknown 06/14/2024 12:50 PM BUSH REGENERATOR 06/14/2024 Narrative [facility] INSURANCE BILL - 06/15/2024 7:08 AM BUSH REGENERATOR Performed at: [address] [id number] Molded Parts Inspector: John Caban PhD, Phone: [phone] Kami Llanos MD LAB - CHEMISTRY ORDERABLES Final Result Performing Organization Address [facility] Co de Phone Number [facility] INSURANCE BILL [address] [place] [address] from Last 3 Months or Most Recently Relevant to Health Maintenance [place] [address] [place] [address] MEDICARE [facility] Care Teams Laboratory Aide Relationship Specialty [place] [address] [address] [address] PCP - General Family Medicine 06/14/23
--- OUTSIDE RECORDS SUMMARY | 2025-02-14 16:30 | XMS_ITS | Encounter Summary ---
Author Organization [facility] Address [address] [place] [address] Care Team Providers Care Merchant Mariner Name Role Phone Vanessa Ogden MD Primary Care Provider [phone] Jordan Castro MD Unavailable [phone] Soila Neumann MD Primary Care Provider [phone] Akhil Vergara DO Unavailable Encounter Details Date Type Department Care Team (Late st Contact Info) Description 04/18/2019 Notable Solutionst Message Enc [facility] Medical Group Family & Internal [facility] [id number] [place] [address] [place] Ogden [place] [address] [place] [address] RE: Referral Request Social History Tobacco Use Types Packs/Day Years Used Date Smoking Tobacco: Never Smokeless Tobacco: Never Alcohol Use Standard Drinks/Week Comments Yes 0 (1 standard drink = 0.6 oz pur e alcohol) Rare use PHQ-2 Answer Date Recorded PHQ-2 Score 0 09/28/2018 Comments No Sex and Gender Information Value Date Recorded Sex Assigned at Female 06/28/2021 1:39 PM STRING WINDING MACHINE OPERATOR Legal Sex Female 3:51 PM STRING WINDING MACHINE OPERATOR Gender Identity Female 06/28/2021 1:39 PM STRING WINDING MACHINE OPERATOR Sexual Orientation Straight 06/28/2021 1: 39 PM STRING WINDING MACHINE OPERATOR documented as of this encounter Plan of Treatment Upcoming Encounters Date Type Department Care Team (Latest Contact Info) Description 02/21/2025 9:00 AM CDT Hospital Encounter [facility] Interventional [place] [address] [id number] Carolyn Fernando MD Three [facility] [address] [place] [address] 02/21/2025 9:00 AM CDT - 02/21/2025 9:[address] [facility] Inter[facility] [place] [address] [phone] Carolyn Fernando MD Three [facility] [address] [place] [address] BLOCK SACROILIAC JOINT 05/05/2025 1:00 PM STRING WINDING MACHINE OPERATOR Office Visit [facility] Family & Internal Medicine [address] [phone] [place] [address] [place] [address] 08/15/2025 2:20 PM STRING WINDING MACHINE OPERATOR Office Visit [facility] Family & Internal [address] [phone] [place] [address] [place] [address] Scheduled Procedures Name Priority Associated Diagnoses Date/Ti me BLOCK SACROILIAC JOINT SI joint arthritis 02/21/2025 9:00 AM CDT documented as of this encounter Visit Diagnoses Not on filedocumented in this encounter Additional Health Concerns Infection Onset Date Last Indicated Resolved Time COVID-19 Rule Out 09/08/2021 09/08/2021 09/08/2021 10:37 AM STRING WINDING MACHINE OPERATOR documented as of this encounter Care Teams Merchant Mariner Relationship Specialty Start Date End Date Vanessa Ogden MD PCP - General INTERNAL MEDICINE 08/14/18 08/10/22 [place] [address] [address] [place], [place] [phone] PCP - General FAMILY PRACTICE 08/11/22 Jordan Castro MD [address] [place] [address] Surgeon ORTHOPAEDIC SURGERY 01/13/20 Akhil Vergara DO [address] [place], [place] [phone] INTERNAL MEDICINE 01/02/25 documented as of this encounter
--- OUTSIDE RECORDS SUMMARY | 2025-02-14 16:30 | XMS_ITS | Encounter Summary ---
Author Organization [facility] Address [address] [place] [address] Care Team Providers Care Computer Mechanic Name Role Phone Vanessa Ogden MD Primary Care Provider [phone] Jordan Castro MD Unavailable [phone] Soila Neumann MD Primary Care Provider [phone] Akhil Vergara DO Unavailable Encounter Details Date Type Department Care Team (Late st Contact Info) Description 09/04/2021 Bionic Panda Gamest Message Enc [facility] Medical Group Family & Internal Medicine [facility] [address] [place] [address] Vanessa Ogden [place] [address] [place] [address] [place] 7.5 refill Social History Tobacco Use Types [...] Sex Assigned at Female 06/28/2021 1:39 PM INSIDE TRUCKER Legal Sex Female 3:51 PM INSIDE TRUCKER Gender Identity Female 06/28/2021 1:39 PM INSIDE TRUCKER Sexual Orientation Straight 06/28/2021 1: 39 PM INSIDE TRUCKER Occupation Industry Job Start Date Job End Date RETIRED Not on file Not on file Not on file COVID-19 Exposure Response Date Recorded In the last 10 days, have yo u been in contact with someone who was confirmed or suspected to have Coronavirus/COVID-19? No / Unsure 09/07/2021 11:57 AM INSIDE TRUCKER documented as of this encounter Progress Notes * Tatyaan Torres MA - 09/06/2021 3:02 PM CST Appointment scheduled. DE TRUCKER * Vanessa Ogden MD - 09/06/2021 1:28 PM CST On 06/30/21 was given a script for Feb to be filled 08/25/21 or 5 mg bid # 60 (since we were going into warmer weather.) I am not filling controlled substances for call ins. If pharmacy cannot find your script we can perhaps do a virtual phone visit DE TRUCKER * Tatyana Torres MA - 09/06/2021 1:19 PM CST Sent to Dr. Mendez for approval. DE TRUCKER documented in this encounter Plan of Treatment Upcoming Encounters Date Type Department Care Team (Latest Contact Info) Description 02/21/2025 9:00 AM CDT Hospital Encounter [facility] Interventional [place] [address] [id number] Carolyn Fernando MD Three [facility] [address] [facility] [place] [address] 02/21/2025 9:00 AM CDT - 02/21/2025 9:20 AM CDT Surgery [facility] Interventional [place] [address] [id number] Carolyn Fernando MD Three [facility] [address] [place] [address] BLOCK SACROILIAC JOINT 05/05/2025 1:00 PM INSIDE TRUCKER Office Visit [facility] Family & Internal [address] [phone] [place] [address] [address] [place] [address] 08/15/2025 2:20 PM INSIDE TRUCKER Office Visit [facility] Family & Internal [facility] [id number] [place] [phone] [place] [address] [address] [place] [address] Scheduled Procedures Name Priority Associated Diagnoses Date/Ti me BLOCK SACROILIAC JOINT SI joint arthritis 02/21/2025 9:00 AM CDT documented as of this encounter Visit Diagnoses Diagnosis Chronic pain syndrome SI joint arthritis Sacroiliitis, not elsewhere classified documented in this encounter Additional Health Concerns Infection Onset Date Last Indicated Resolved Time COVID-19 Rule Out 09/08/2021 09/08/2021 09/08/2021 10:37 AM INSIDE TRUCKER documented as of this encounter Care Teams Computer Mechanic Relationship Specialty Start Date End Date Vanessa Ogden MD PCP - General INTERNAL MEDICINE 08/14/18 08/10/22 [place] [address] [address] [place] [address] PCP - General FAMILY PRACTICE 08/11/22 Jordan Castro MD [address] [facility] [address] [place], [place] [id number] Surgeon ORTHOPAEDIC SURGERY 01/13/20 Akhil Vergara DO [address] [place] [address] INTERNAL MEDICINE 01/02/25 documented as of this encounter
--- OUTSIDE RECORDS SUMMARY | 2025-02-14 16:31 | XMS_ITS | Encounter Summary ---
Author Organization [facility] Address [facility] [place] [address] Care Team Providers Care Bilingual Interpreter Name Role Phone Jordan Castro MD Unavailable [phone] Soila Neumann MD Primary Care Provider [phone] Akhil Vergara DO Unavailable Encounter Details Date Type Department Care Team (Late st Contact Info) Description 12/28/2022 Silicon Biologyhart Message Enc [facility] Medical [facility] - [facility] [address] [place], [place] [address] [facility] Provider Air Quality Message Social History Tobacco [...] Sex Assigned at Female 06/28/2021 1:39 PM MUSIC ENGINEER Legal Sex Female 3:51 PM MUSIC ENGINEER Gender Identity Female 06/28/2021 1:39 PM MUSIC ENGINEER Sexual Orientation Straight 06/28/2021 1: 39 PM MUSIC ENGINEER Occupation Industry Job Start Date Job End [...] [facility] [place] [address] [id number] Carolyn Fernando MD Three [facility] [address] [place] [address] 02/21/2025 9:00 AM CDT - 02/21/2025 9:[address] [facility] [place] [address] [id number] Carolyn Fernando MD Three [facility] [address] [place] [address] BLOCK SACROILIAC JOINT 05/05/2025 1:00 PM MUSIC ENGINEER Office Visit [facility] Family & Internal Medicine [address] [phone] [place] [address] [place] [phone] 08/15/2025 2:20 PM MUSIC ENGINEER Office Visit [facility] Family & Internal [address] [phone] [place] [address] [address] [place] [phone] Scheduled Procedures Name Priority Associated Diagnoses Date/Ti me BLOCK SACROILIAC JOINT SI joint arthritis 02/21/2025 9:00 AM CDT documented as of this encounter Visit Diagnoses Not on filedocumented in this encounter Additional Health Concerns Assessment Noted Time PHQ-9 Depression Total Score: 2 08/03/19 23 2:16 PM MUSIC ENGINEER documented as of this encounter Care Teams Bilingual Interpreter Relationship Specialty [place] [address] [facility] [place] [address] PCP - General FAMILY PRACTICE 08/11/22 Jordan Castro MD [address] [place] [address] Surgeon ORTHOPAEDIC SURGERY 01/13/20 Akhil Vergara DO [address] [place] [address] INTERNAL MEDICINE 01/02/25 documented as of this encounter
--- OUTSIDE RECORDS SUMMARY | 2025-02-14 16:31 | XMS_ITS | Encounter Summary ---
Author Organization [facility] Address [address] [place] [address] Care Team Providers Care Engineering Technical Specialist Name Role Phone Vanessa Ogden MD Primary Care Provider Jordan Castro MD Unavailable [phone] Soila Neumann MD Primary Care Provider [phone] Akhil Vergara DO Unavailable Encounter Details Date Type Department Care Team (Late st Contact Info) Description 12/27/2019 [employer] Message Enc [facility] Medical [facility] Family & Internal Medicine [facility] [address] [place] [address] [place] Og[place] [id number] [place] [address] RE: Other Social History Tobacco Use Types Packs/Day Years Used Date Smoking Tobacco: Never Smokeless Tobacco: Never Alcohol Use Standard Drinks/Week Comments Yes 0 (1 standard drink = 0.6 oz pur e alcohol) Rare use PHQ-2 Answer Date Recorded PHQ-2 Score 0 09/28/2018 Comments No Sex and Gender Information Value Date Recorded Sex Assigned at Female 06/28/2021 1:39 PM KEYPUNCHER Legal Sex Female 3:51 PM KEYPUNCHER Gender Identity Female 06/28/2021 1:39 PM KEYPUNCHER Sexual Orientation Straight 06/28/2021 1: 39 PM KEYPUNCHER COVID-19 Exposure Response Date Recorded In the last month, have you been in contact with someone who was confirmed or suspected to have Coronavirus / COVID-19? No / Unsure 12/27/2019 11:09 AM CDT documented as of this encounter Plan of Treatment Upcoming Encounters Date Type Department Care Team (Latest Contact Info) Description 02/21/2025 9:00 AM CDT Hospital Encounter [facility] Interventional Pain [place] [address] [id number] Carolyn Fernando MD Three [facility] [address] [place] [address] 02/21/2025 9:00 AM CDT - 02/21/2025 9:20 AM CDT Surgery [facility] Interventional Pain [place] [address] [id number] Carolyn Fernando MD Three [facility] [address] [place] [address] BLOCK SACROILIAC JOINT 05/05/2025 1:00 PM KEYPUNCHER Office Visit [facility] Family & Internal Medicine [address] [phone] [place] [address] [facility] [address] [place] [address] [phone] 08/15/2025 2:20 PM KEYPUNCHER Office Visit [facility] Family & Internal Medicine [address] [phone] [place] [address] [facility] [employer]. [address] [place] [address] [phone] Scheduled Procedures Name Priority Associated Diagnoses Date/Ti me BLOCK SACROILIAC JOINT SI joint arthritis 02/21/2025 9:00 AM CDT documented as of this encounter Visit Diagnoses Not on filedocumented in this encounter Additional Health Concerns Infection Onset Date Last Indicated Resolved Time COVID-19 Rule Out 09/08/2021 09/08/2021 09/08/2021 10:37 AM KEYPUNCHER documented as of this encounter Care Teams Engineering Technical Specialist Relationship Specialty Start Date End Date Vanessa Ogden MD PCP - General INTERNAL MEDICINE 08/14/18 08/10/22 [place] [address] [facility]. [address] [place] [address] PCP - General FAMILY PRACTICE 08/11/22 Jordan Castro MD [address] [facility] [address] [place], [place] [id number] Surgeon ORTHOPAEDIC SURGERY 01/13/20 Akhil Vergara DO [address] [place] [address] INTERNAL MEDICINE 01/02/25 documented as of this encounter
--- OUTSIDE RECORDS SUMMARY | 2025-02-14 16:31 | XMS_ITS | Encounter Summary ---
Author Organization [facility] Address [address] [place] [address] Care Team Providers Care Panelbeater Name Role Phone Vanessa Ogden MD Primary Care Provider [phone] Jordan Castro MD Unavailable [phone] Soila Neumann MD Primary Care Provider [phone] Akhil Vergara DO Unavailable Encounter Details Date Type Department Care Team (Late st Contact Info) Description 09/07/2020 [employer] Message [facility] [address] [place] [address] [facility] Provider RE:Lab Results Social History Tobacco Use [...] Assigned at Female 06/28/2021 1:39 PM AUTOMOBILE ASSEMBLY SUPERVISOR Legal Sex Female 3:51 PM AUTOMOBILE ASSEMBLY SUPERVISOR Gender Identity Female 06/28/2021 1:39 PM AUTOMOBILE ASSEMBLY SUPERVISOR Sexual Orientation Straight 06/28/2021 1: 39 PM AUTOMOBILE ASSEMBLY SUPERVISOR COVID-19 Exposure Response Date Recorded In the last month, have you been in contact with someone who was confirmed or suspected to have Coronavirus / COVID-19? No / Unsure 09/10/2020 11:25 AM AUTOMOBILE ASSEMBLY SUPERVISOR documented as of this encounter Progress Notes * Gilma Barreto RN - 09/07/2020 3:20 PM CST VITAMIN B12 S/P/B 193 - 986 PG/ML 1,054High Does pt need to go to monthly B12 injections instead of weekly like she is doing now? Printed to clarify with provider. MOBILE ASSEMBLY SUPERVISOR documented in this encounter Plan of Treatment Upcoming Encounters Date Type Department Care Team (Latest Contact Info) Description 02/21/2025 9:00 AM CDT Hospital Encounter [facility] Interventional [place] [address] [id number] Carolyn Fernando MD Three [facility] [address] [place] [address] 02/21/2025 9:00 AM CDT - 02/21/2025 9:20 AM CDT Surgery [facility] [place] [address] [id number] Carolyn Fernando MD [facility] [address] [place] [address] BLOCK SACROILIAC JOINT 05/05/2025 1:00 PM AUTOMOBILE ASSEMBLY SUPERVISOR Office Visit [facility] Medical Group Family & Internal Medicine [address] [address] Soila Neumann MD [address] [place] [address] [phone] 08/15/2025 2:20 PM AUTOMOBILE ASSEMBLY SUPERVISOR Office Visit [facility] Medical Group Family & Internal Medicine - [place] [address] [place] [address] [place] [address] [address] [place] [address] Scheduled Procedures Name Priority Associated Diagnoses Date/Ti me BLOCK SACROILIAC JOINT SI joint arthritis 02/21/2025 9:00 AM CDT documented as of this encounter Visit Diagnoses Not on filedocumented in this encounter Additional Health Concerns Infection Onset Date Last Indicated Resolved Time COVID-19 Rule Out 09/08/2021 09/08/2021 09/08/2021 10:37 AM AUTOMOBILE ASSEMBLY SUPERVISOR documented as of this encounter Care Teams Panelbeater Relationship Specialty Start Date End Date Vanessa Ogden MD PCP - General INTERNAL MEDICINE 08/14/18 08/10/22 [place] [address] [address] [place] [address] PCP - General FAMILY PRACTICE 08/11/22 Jordan Castro MD [address] [place] [address] Surgeon ORTHOPAEDIC SURGERY 01/13/20 Akhil Vergara DO [address] [place] [address] INTERNAL MEDICINE 01/02/25 documented as of this encounter
--- OUTSIDE RECORDS SUMMARY | 2025-02-14 16:31 | XMS_ITS | Encounter Summary ---
Author Organization [facility] Address [address] [place] [address] Care Team Providers Care Labor Relations Teacher Name Role Phone Jordan Castro MD Unavailable [phone] Soila Neumann MD Primary Care Provider [phone] Akhil Vergara DO Unavailable Encounter Details Date Type Department Care Team (Late st Contact Info) Description 09/13/2022 [employer] Message Enc [facility] Medical Group Family & Internal Medicine [facility] [phone] [place] [phone] Vanessa Ogden MD [address] [place] [address] Vergara/heart monitor Social History Tobacco Use [...] Sex Assigned at Female 06/28/2021 1:39 PM MAGNETIC RESONANCE TECHNOLOGIST Legal Sex Female 3:51 PM MAGNETIC RESONANCE TECHNOLOGIST Gender Identity Female 06/28/2021 1:39 PM MAGNETIC RESONANCE TECHNOLOGIST Sexual Orientation Straight 06/28/2021 1: 39 PM MAGNETIC RESONANCE TECHNOLOGIST Occupation Industry Job Start Date Job End Date RETIRED Not on file Not on file Not on file documented as of this encounter Plan of Treatment Upcoming Encounters Date Type Department Care Team (Latest Contact Info) Description 02/21/2025 9:00 AM CDT Hospital Encounter [facility] Interventional [place] [address] [id number] Carolyn Fernando MD Three [facility] [address] [place] [address] 02/21/2025 9:00 AM CDT - 02/21/2025 9:20 AM CDT Surgery [facility] Interventional Pain [place] [address] [id number] Carolyn Fernando MD Three [facility] [address] [place] [address] BLOCK SACROILIAC JOINT 05/05/2025 1:00 PM MAGNETIC RESONANCE TECHNOLOGIST Office Visit [facility] Family & Internal Medicine [address] [phone] [place] [address] [employer] [place] [address] [phone] 08/15/2025 2:20 PM MAGNETIC RESONANCE TECHNOLOGIST Office Visit [facility] Family & Internal Medicine [address] [address] [place] [address] [employer] [place] [address] Scheduled Procedures Name Priority Associated Diagnoses Date/Ti me BLOCK SACROILIAC JOINT SI joint arthritis 02/21/2025 9:00 AM CDT documented as of this encounter Visit Diagnoses Not on filedocumented in this encounter Additional Health Concerns Assessment Noted Time PHQ-9 Depression Total Score: 2 08/03/19 23 2:16 PM MAGNETIC RESONANCE TECHNOLOGIST documented as of this encounter Care Teams Labor Relations Teacher Relationship Specialty [place] [address] [facility]. [address] [place] [address] PCP - General FAMILY PRACTICE 08/11/22 Jordan Castro MD [address] [place] [address] Surgeon ORTHOPAEDIC SURGERY 01/13/20 Akhil Vergara DO [address] [place] [address] INTERNAL MEDICINE 01/02/25 documented as of this encounter
--- OUTSIDE RECORDS SUMMARY | 2025-02-14 16:31 | XMS_ITS | Encounter Summary ---
Author Organization [facility] Address [address] [place] [address] Care Team Providers Care Cutter Machine Name Role Phone Jordan Castro MD Unavailable [phone] Soila Neumann MD Primary Care Provider [phone] Akhil Vergara DO Unavailable Encounter Details Date Type Department Care Team (Late st Contact Info) Description 07/24/2023 [employer] Message Enc [facility] Medical Group Family & Internal Medicine [facility] [address] [place] [address] Soila Neumann MD [address] [place] [address]. [address] [place] [address] todays appointment Social History Tobacco Use [...] Sex Assigned at Female 06/28/2021 1:39 PM EXTERNAL GRINDER Legal Sex Female 3:51 PM EXTERNAL GRINDER Gender Identity Female 06/28/2021 1:39 PM EXTERNAL GRINDER Sexual Orientation Straight 06/28/2021 1: 39 PM EXTERNAL GRINDER Occupation Industry Job Start Date Job End Date RETIRED Not on file Not on file Not on file documented as of this encounter Progress Notes * Gilma Barreto RN - 07/25/2023 8:36 AM CST Pt was rescheduled to today due to weather RNAL GRINDER documented in this encounter Plan of Treatment Upcoming Encounters Date Type Department Care Team (Latest Contact Info) Description 02/21/2025 9:00 AM CDT Hospital Encounter [facility] Interventional Pain [place] [address] [id number] Carolyn Fernando MD Three [facility] [address] [place] [address] 02/21/2025 9:00 AM CDT - 02/21/2025 9:20 AM CDT Surgery [facility] [place] [address] [id number] Carolyn Fernando MD Three [address] [address] BLOCK SACROILIAC JOINT 05/05/2025 1:00 PM EXTERNAL GRINDER Office Visit [facility] Family & Internal Medicine [address] [phone] Soila Neumann MD [address] [place] [address] [phone] 08/15/2025 2:20 PM EXTERNAL GRINDER Office Visit [facility] Family & Internal Medicine [address] [phone] [place] [address] [address] [place] [address] Scheduled Procedures Name Priority Associated Diagnoses Date/Ti me BLOCK SACROILIAC JOINT SI joint arthritis 02/21/2025 9:00 AM CDT documented as of this encounter Visit Diagnoses Not on filedocumented in this encounter Additional Health Concerns Assessment Noted Time PHQ-9 Depression Total Score: 2 08/03/19 23 2:16 PM EXTERNAL GRINDER documented as of this encounter Care Teams Cutter Machine Relationship Specialty [place] [address] [address] [place] [address] PCP - General FAMILY PRACTICE 08/11/22 Jordan Castro MD [address] [place] [address] Surgeon ORTHOPAEDIC SURGERY 01/13/20 Akhil Vergara DO [address] [place] [address] INTERNAL MEDICINE 01/02/25 documented as of this encounter
--- OUTSIDE RECORDS SUMMARY | 2025-02-14 16:31 | XMS_ITS | Encounter Summary ---
Author Organization [facility] Address [address] [place] [address] Care Team Providers Care Reel Repairer Name Role Phone Vanessa Ogden MD Primary Care Provider [phone] Jordan Castro MD Unavailable [phone] Soila Neumann MD Primary Care Provider Akhil Vergara DO Unavailable Encounter Details Date Type Department Care Team (Latest Contact Info) Description 09/28/2021 [employer] Message Enc [facility] Medical Group [facility] [place] [address] [place] [address] Ricky Ramsey, DPM [address] [place] [address] recently new orthotics Social History [...] Sex Assigned at Female 06/28/2021 1:[address] JUSTICE Legal Sex Female 3:[address] JUSTICE Gender Identity Female 06/28/2021 1:[address] JUSTICE Sexual Orientation Straight 06/28/2021 1: [address] JUSTICE Occupation Industry Job Start Date Job End Date RETIRED Not on file Not on file Not on file COVID-19 Exposure Response Date Recorded In the last 10 days, have yo u been in contact with someone who was confirmed or suspected to have Coronavirus/COVID-19? No / Unsure 09/10/2021 1:[address] JUSTICE documented as of this encounter Plan of Treatment Upcoming Encounters Date Type Department Care Team (Latest Contact Info) Description 02/21/2025 9:00 AM CDT Hospital Encounter [facility] Interventional [place] [address] [id number] Carolyn Fernando MD [facility] [address] [place] [address] 02/21/2025 9:00 AM CDT - 02/21/2025 9:20 AM CDT Surgery [facility] [place] [address] [id number] Carolyn Fernando MD [facility] [address] [place] [address] BLOCK SACROILIAC JOINT 05/05/2025 1:[address] JUSTICE Office Visit [facility] Family & Internal Medicine [address] [phone] Soila Neumann MD [address] [place] [address] 08/15/2025 2:[address] JUSTICE Office Visit [facility] Family & Internal Medicine [address] [place] [phone] [place] [address] [facility] [address] [place] [address] Scheduled Procedures Name Priority Associated Diagnoses Date/Ti me BLOCK SACROILIAC JOINT SI joint arthritis 02/21/2025 9:00 AM CDT documented as of this encounter Visit Diagnoses Not on filedocumented in this encounter Additional Health Concerns Assessment Noted Time PHQ-9 Depression Total Score: 3 09/09/19 22 9:[address] JUSTICE documented as of this encounter Care Teams Reel Repairer Relationship Specialty Start Date End Date Vanessa Ogden MD PCP - General INTERNAL MEDICINE 08/14/18 08/10/22 [place] [address] [address] [place] [address] PCP - General FAMILY PRACTICE 08/11/22 Jordan Castro MD [address] [facility] [address] [place] [address] Surgeon ORTHOPAEDIC SURGERY 01/13/20 Akhil Vergara DO [address] [place] [address] INTERNAL MEDICINE 01/02/25 documented as of this encounter
--- OUTSIDE RECORDS SUMMARY | 2025-02-14 16:31 | XMS_ITS | Encounter Summary ---
Author Organization [facility] Address [address] [place] [address] Care Team Providers Care Meteorological Equipment Repairer Name Role Phone Vanessa Ogden MD Primary Care Provider [phone] Jordan Castro MD Unavailable [phone] Soila Neumann MD Primary Care Provider [phone] Akhil Vergara DO Unavailable Encounter Details Date Type Department Care Team (Latest Contact Info) Description 04/18/2022 [employer] [facility] Message Enc [facility] Medical Group Family & Internal Medicine [facility] [address] [place] [address] [place] [address] [place] [address] Persons with Disabilities Certification Social [...] Assigned at Female 06/28/2021 1:39 PM SUPERVISOR PHOSPHORIC ACID Legal Sex Female 3:51 PM SUPERVISOR PHOSPHORIC ACID Gender Identity Female 06/28/2021 1:39 PM SUPERVISOR PHOSPHORIC ACID Sexual Orientation Straight 06/28/2021 1: 39 PM SUPERVISOR PHOSPHORIC ACID Occupation Industry Job Start Date Job End [...] Description 02/21/2025 9:00 AM CDT Hospital Encounter [facility] Interventional [place] [address] [id number] Carolyn Fernando MD Three [facility] [address] [place] [address] 02/21/2025 9:00 AM CDT - 02/21/2025 9:20 AM CDT Surgery [facility] Interventional [place] [address] [id number] Carolyn Fernando MD Three [facility] [address] [place] [address] BLOCK SACROILIAC JOINT 05/05/2025 1:00 PM SUPERVISOR PHOSPHORIC ACID Office Visit [facility] Family & Internal Medicine [facility] [address] [place] [phone] [place] [address] [place] [address] 08/15/2025 2:20 PM SUPERVISOR PHOSPHORIC ACID Office Visit [facility] Family & Internal [facility] [address] [place] [phone] [place] [address] [place] [address] [phone] Scheduled Procedures Name Priority Associated Diagnoses Date/Ti me BLOCK SACROILIAC JOINT SI joint arthritis 02/21/2025 9:00 AM CDT documented as of this encounter Visit Diagnoses Not on filedocumented in this encounter Additional Health Concerns Assessment Noted Time PHQ-9 Depression Total Score: 3 09/09/19 22 9:29 AM SUPERVISOR PHOSPHORIC ACID documented as of this encounter Care Teams Meteorological Equipment Repairer Relationship Specialty Start Date End Date Vanessa Ogden MD PCP - General INTERNAL MEDICINE 08/14/18 08/10/22 [place] [address] [place] [address] [phone] PCP - General FAMILY PRACTICE 08/11/22 Jordan Castro MD [address] [place] [address] Surgeon ORTHOPAEDIC SURGERY 01/13/20 Akhil Vergara DO [address] [place] [address] INTERNAL MEDICINE 01/02/25 documented as of this encounter
--- OUTSIDE RECORDS SUMMARY | 2025-02-14 16:31 | XMS_ITS | Encounter Summary ---
Author Organization [facility] Address [address] [place] [address] Care Team Providers Care Auto Driver Name Role Phone Jordan Castro MD Unavailable [phone] Soila Neumann MD Primary Care Provider [phone] Akhil Vergara DO Unavailable Encounter Details Date Type Department Care Team (Late st Contact Info) Description 06/15/2023 [employer] Message Enc [facility] Medical Group Family [facility] [address] [place] [phone] Soila Neumann MD [address] [place] [address]. [address] [place] [address] update of health: Covid positive Social [...] Assigned at Female 06/28/2021 1:39 PM RADIO INTERFERENCE SUPERVISOR Legal Sex Female 3:51 PM RADIO INTERFERENCE SUPERVISOR Gender Identity Female 06/28/2021 1:39 PM RADIO INTERFERENCE SUPERVISOR Sexual Orientation Straight 06/28/2021 1: 39 PM RADIO INTERFERENCE SUPERVISOR Occupation Industry Job Start Date Job End Date RETIRED Not on file Not on file Not on file documented as of this encounter Plan of Treatment Upcoming Encounters Date Type Department Care Team (Latest Contact Info) Description 02/21/2025 9:00 AM CDT Hospital Encounter [facility] Interventional [place] [address] [id number] Carolyn Fernando MD Three [facility] [address] [place] [address] 02/21/2025 9:00 AM CDT - 02/21/2025 9:20 AM CDT Surgery [facility] Interventional Pain [place] [address] [id number] Carolyn Fernando MD Three [facility] [address] [place] [address] BLOCK SACROILIAC JOINT 05/05/2025 1:00 PM RADIO INTERFERENCE SUPERVISOR Office Visit [facility] Family & Internal Medicine [address] [phone] [place] [address] [place] [address] [phone] 08/15/2025 2:20 PM RADIO INTERFERENCE SUPERVISOR Office Visit [facility] Family & Internal Medicine [address] [phone] [place] [address] [employer] [place] [address] [phone] Scheduled Procedures Name Priority Associated Diagnoses Date/Ti me BLOCK SACROILIAC JOINT SI joint arthritis 02/21/2025 9:00 AM CDT documented as of this encounter Visit Diagnoses Not on filedocumented in this encounter Additional Health Concerns Assessment Noted Time PHQ-9 Depression Total Score: 2 08/03/19 23 2:16 PM RADIO INTERFERENCE SUPERVISOR documented as of this encounter Care Teams Auto Driver Relationship Specialty [place] [address] [facility]. [address] [place] [address] PCP - General FAMILY PRACTICE 08/11/22 Jordan Castro MD [address] [place] [address] Surgeon ORTHOPAEDIC SURGERY 01/13/20 Akhil Vergara DO [address] [place] [address] INTERNAL MEDICINE 01/02/25 documented as of this encounter
--- OUTSIDE RECORDS SUMMARY | 2025-02-14 16:31 | XMS_ITS | Encounter Summary ---
Author Organization [facility] Address [address] [place] [address] Care Team Providers Care Sales Support Representative Name Role Phone Vanessa Ogden MD Primary Care Provider [phone] Jordan Castro MD Unavailable [phone] Soila Neumann MD Primary Care Provider [phone] Akhil Vergara DO Unavailable Encounter Details Date Type Department Care Team (Late st Contact Info) Description 02/25/2020 Impressto Message Enc [facility] Family & Internal Medicine [facility] [address] [place] [address] Vanessa Ogden [place] [phone] [place] [address] RE: Medication Questions Social History Tobacco Use Types Packs/Day Years Used Date Smoking Tobacco: Never Smokeless Tobacco: Never Alcohol Use Standard Drinks/Week Comments Yes 0 (1 standard drink = 0.6 oz pur e alcohol) Rare use PHQ-2 Answer Date Recorded PHQ-2 Score 0 09/28/2018 Comments No Sex and Gender Information Value Date Recorded Sex Assigned at Female 06/28/2021 1:39 PM LUBE MAN Legal Sex Female 3:51 PM LUBE MAN Gender Identity Female 06/28/2021 1:39 PM LUBE MAN Sexual Orientation Straight 06/28/2021 1: 39 PM LUBE MAN COVID-19 Exposure Response Date Recorded In the [...] Description 02/21/2025 9:00 AM CDT Hospital Encounter [facility] [place] [address] [id number] Carolyn Fernando MD Three [facility] [address] [place] [address] 02/21/2025 9:00 AM CDT - 02/21/2025 9:20 AM CDT Surgery [facility] Interventional [facility] [place] [address] [id number] Carolyn Fernando MD Three [facility] [address] [place] [address] BLOCK SACROILIAC JOINT 05/05/2025 1:00 PM LUBE MAN Office Visit [facility] Family & Internal Medicine [address] [address] [place] [address] [place] [address] [phone] 08/15/2025 2:20 PM LUBE MAN Office Visit [facility] Family & Internal Medicine [address] [address] [place] [address] [place] [address] Scheduled Procedures Name Priority Associated Diagnoses Date/Ti me BLOCK SACROILIAC JOINT SI joint arthritis 02/21/2025 9:00 AM CDT documented as of this encounter Visit Diagnoses Not on filedocumented in this encounter Additional Health Concerns Infection Onset Date Last Indicated Resolved Time COVID-19 Rule Out 09/08/2021 09/08/2021 09/08/2021 10:37 AM LUBE MAN documented as of this encounter Care Teams Sales Support Representative Relationship Specialty Start Date End Date Vanessa Ogden MD PCP - General INTERNAL MEDICINE 08/14/18 08/10/22 [place] [address] [place] [address] PCP - General FAMILY PRACTICE 08/11/22 Jordan Castro MD [address] [place], [place] [id number] Surgeon ORTHOPAEDIC SURGERY 01/13/20 Akhil Vergara DO [address] [place] [address] INTERNAL MEDICINE 01/02/25 documented as of this encounter
--- OUTSIDE RECORDS SUMMARY | 2025-02-14 16:31 | XMS_ITS | Clinical Summary ---
Author Organization [facility] Address [facility] [place] [address] Care Team Providers Care Tanning Drum Operator Name Role Phone Jordan Castro MD Unavailable [phone] Soila Darnell MD Primary Care Provider [phone] Akhil Vergara DO Unavailable Allergies Active Allergy [...] of left elbow 06/06/2022 Seronegative rheumatoid arthritis ([facility]/H CC) 11/06/2020 Urinary incontinence 08/13/2019 Sacroiliitis 07/22/2019 Overview (07/22/2019): Added automatically from request for surgery [id number] Bursitis 07/22/2019 Overview (07/22/2019): Added automatically from request for surgery [id number] Osteoarthritis of right hip, unspecified osteoarthritis type [...] Care Team Description 02/13/2025 MyChart Message Enc [facility] Family & Internal Medicine [address] [phone] Soila Darnell MD Current reading of BNP Do You Agree with advise? 02/12/2025 1:00 PM CDT Office Visit [facility] Orthopedic & Sports Medicine [facility] [address] [place] [address] Freddy Russell PA Follow Up (Right foot ) 02/12/2025 MyChart Message Enc [facility] Family & Internal Medicine [address] [address] Soila Darnell MD CoverMyMeds 02/12/2025 Travel 02/11/2025 Results Follow-Up [facility] Family & Internal [address] [phone] Soila Darnell MD CBC W/DIFF AUTOMATED, COMPREHENSIVE METABOLIC PANEL, LIPID PANEL, Additional followed-up results: 5 02/05/2025 9:10 AM CDT Laboratory Only [facility] Family & Internal Medicine [address] [address] Soila Darnell MD 02/05/2025 Travel 02/02/2025 MyChart Message Enc [facility] Family & Internal [address] [phone] Soila Darnell MD Hydrocodone 01/31/2025 1:20 PM CDT Office Visit [facility] Family & Internal [place] [address] [place] [address] Soila Darnell MD Follow Up 01/31/2025 Travel 01/06/2025 MyChart Message Enc [facility] Family & Internal [facility] [address] [place] [phone] Soila Darnell MD Rotator Cuff additional questions I had for Dr. Otero & his reply 01/06/2025 MyChart Message Enc [facility] Family & Internal [address] [phone] Soila Darnell MD Rotator Cuff tear 12/30/2024 Scan [employer] SRVCS Scanned, [facility] 12/09/2024 Telephone [facility] [place] [place] [address] [id number] Jovana cMmahan RN Follow Up (/) 12/09/2024 Telephone [facility] [place] [address] [id number] Jovana Mcmahan RN Error 12/06/2024 MyChart Message Enc [facility] Interventional [place] [address] [id number] Carolyn Fernando MD SSI Joint Injection x 2 12/06/2024 MyChart Message Enc [facility] [address] [place] [address] Jose Otero, DO questions I should have asked 12/05/2024 1:20 PM CDT Office [facility] [address] [place] [address] Jose Otero, DO Shoulder Pain (Right Shoulder Pain ) 12/05/2024 Travel 11/22/2024 MyChart Message Enc [facility] Family & Internal [address] [address] Soila Darnell MD Blood workup 11/20/2024 8:40 AM CDT - 11/20/2024 9:00 AM CDT Surgery [facility] [place] [address] [id number] Carolyn Fernando MD BLOCK SACROILIAC JOINT 11/20/2024 7:54 AM CDT - 11/20/2024 9:15 AM CDT Hospital Encounter [facility] [place] [address] [phone] Carolyn Fernando MD Discharge Disposition: Home or Self Care (Routine Discharge) 11/20/2024 Travel 11/18/2024 10:00 AM CDT Office Visit [facility] Family & Internal [address] [phone] Cristina Navarro MD Foot Pain (R heel pain. happened 11/08/24--Walking across yard, something popped, 04/11 pain.) 11/18/2024 Travel 11/15/2024 Orders Only [facility] Family & Internal [address] [address] Soila Darnell MD 11/15/2024 Orders Only [facility] Family & Internal [address] [address] Soila Darnell MD from Last 3 Months [...] Sex Assigned at Female 06/28/2021 1:39 PM INTERLOCKING PAVEMENT INSTALLER Legal Sex Female 3:51 PM INTERLOCKING PAVEMENT INSTALLER Gender Identity Female 06/28/2021 1:39 PM INTERLOCKING PAVEMENT INSTALLER Sexual Orientation Straight 06/28/2021 1: 39 PM INTERLOCKING PAVEMENT INSTALLER Occupation Industry Job Start Date Job [...] Description 02/21/2025 9:00 AM CDT Hospital Encounter [facility] Inter[facility] [place] [address] [id number] Carolyn Fernando MD Three [facility] [address] [place] [address] 02/21/2025 9:00 AM CDT - 02/21/2025 9:20 AM CDT Surgery [facility] Interventional [place] [address] [phone] Carolyn Fernando MD Three [facility] [address] [place] [address] BLOCK SACROILIAC JOINT 05/05/2025 1:00 PM INTERLOCKING PAVEMENT INSTALLER Office Visit [facility] Family & Internal [address] [phone] [place] [address] [place] [address] 08/15/2025 2:20 PM INTERLOCKING PAVEMENT INSTALLER Office Visit [facility] Family & Internal [facility] [address] [place] [phone] [place] [address] [place] [address] Scheduled Procedures Name Priority Associated Diagnoses Date/Ti [...] Dexa Scan (General) Completed 11/17/2023 PHQ-2 (Physician [place]) Completed 12/05/2024 Meningococcal B Vaccine Aged Out [...] / FOLATE (02/05/2025 9:08 AM CDT) Pathologist [facility] VITAMIN B12 S/P/B 305 200 - 1,100 pg/mL [facility] Comment: Please Note: Although the reference range for vitamin B12 is 200-1100 pg/mL, it has been reported that between 5 and 10% of patients with values between 200 and 400 pg/mL may experience neuropsychiatric and hematologic abnormalities due to occult B12 deficiency; less than 1% of patients with values above 400 pg/mL will have symptoms. FOLATE 16.6 ng/mL [facility] Comment: Reference Range Low: <3.4 Borderline: 3.4-5.4 Normal: >5.4 02/05/2025 9:08 AM CDT 02/06/2025 4:21 AM CDT Narrative Resulting Agency Comment Performing Organization Information: Site ID: [place] Name: [facility] Address: [address] [place] [address] Director: Reymundo Rivera MD us Soila Darnell MD LABORATORY Final Result [facility] Robert MARTINEZ [facility] [id number] [place] [address] * TSH W/REFLEX (02/05/2025 9:08 AM CDT) Pathologist [facility] TSH 1.45 0.40 - 4.50 mIU/L [facility] 02/05/2025 9:08 AM CDT 02/06/2025 4:21 AM CDT Narrative Resulting Agency Comment Performing Organization Information: Site ID: [place] Name: [facility] Address: [address] [place] [address] Director: Reymundo Rivera MD Soila Darnell MD LABORATORY Final Result Performing Organization Address City/[facility] Co de Phone Number [facility] EYAD NELSON [address] [address], * (ABNORMAL) PRO-BNP (02/05/2025 9:08 AM CDT) [facility] PRO-B TYPE NATRIURETIC PEPTIDE 148(H) <125 pg/mL [facility] 02/05/2025 9:08 AM CDT 02/06/2025 3:04 AM CDT Narrative Resulting Agency Comment Performing Organization Information: Site ID: [place] Name: [facility] Address: [address] [place] [address] Director: Reymundo Rivera MD Soila Darnell MD LABORATORY Final Result Performing Organization Address [facility] de Phone Number [facility] N[facility] [address] [address], * (ABNORMAL) COMPREHENSIVE METABOLIC PANEL (02/05/2025 9:08 AM CDT) [facility] GLUCOSE 89 65 - 99 mg/dL [facility] Comment: Fasting reference interval BUN 13 7 - 25 mg/dL [facility] CREATININE S/P/B 0.59(L) 0.60 - 1.00 mg/dL [facility] GFR ESTIMATE 95 > OR = 60 mL/min/1. 73m2 [facility] BUN CREATININE RATIO 22 6 - 22 (calc) [facility] SODIUM S/P/B 140 135 - 146 mmol/L [facility] POTASSIUM S/P/B 4.1 3.5 - 5.3 mmol/L [facility] CHLORIDE S/P/B 105 98 - 110 mmol/L [facility] CO2 27 20 - 32 mmol/L [facility] CALCIUM S/P/B 9.2 8.6 - 10.4 mg/dL [facility] TOTAL PROTEIN S/P/B 6.1 6.1 - 8.1 g/dL [facility] ALBUMIN S/P/B 4.0 3.6 - 5.1 g/dL [facility] GLOBULIN 2.1 1.9 - 3.7 g/dL (calc) [facility] ALBUMIN/GLOBULIN RATIO 1.9 1.0 - 2.5 (calc) [facility] BILIRUBIN TOTAL S/P/B 0.5 0.2 - 1.2 mg/dL [facility] ALKALINE PHOSPHATASE S/P/B 44 37 - 153 U/L [facility] AST 17 10 - 35 U/L [facility] [place] [facility] ALT 14 6 - 29 U/L [facility] 02/05/2025 9:08 AM CDT 02/06/2025 4:21 AM CDT Narrative Resulting Agency Comment Performing Organization Information: Site ID: [place] Name: [facility] Address: [address] [facility] [place] [address] Director: Reymundo Rivera MD Soila Darnell MD LABORATORY Final Result [facility] [id number] [place] [address] * (ABNORMAL) LIPID PANEL (02/05/2025 9:08 AM CDT) CHOLESTEROL 159 <200 mg/dL [facility] HDL 69 > OR = 50 mg/dL [facility] TRIGLYCERIDES 176(H) <150 mg/dL [facility] LDL (CALCULATED) 65 mg/dL (calc) [facility] Comment: Reference range: <100 Desirable range <100 mg/dL for primary prevention; <70 mg/dL for patients with CHD or diabetic patients with > or = 2 CHD risk factors. LDL-C is now calculated using the Andre-Vo calculation, which is a validated novel method providing better accuracy than the Friedewald equation in the estimation of LDL-C. Andre SS et al. SIMON. 2013;310(41): 7085-6954 (http://education.PodPonics/faq/EWQ094) CHOL/HDL RATIO 2.3 <5.0 (calc) [facility] NON HDL CHOLESTEROL 90 <130 mg/dL (calc) [facility] Comment: For patients with diabetes plus 1 major ASCVD risk factor, treating to a non-HDL-C goal of <100 mg/dL (LDL-C of <70 mg/dL) is considered a therapeutic option. 02/05/2025 9:08 AM CDT 02/06/2025 4:21 AM CDT Narrative Resulting Agency Comment Performing Organization Information: Site ID: JESSICA Name: [facility] Address: [address] [place] [address] Director: Reymundo Rivera MD Soila Darnell MD LABORATORY Final Result [facility] OMAR MICHELLE [facility] [id number] [place] [address] [place] [address] * (ABNORMAL) CBC W/DIFF AUTOMATED (02/05/2025 9:08 AM CDT) WBC 6.0 3.8 - 10.8 Thousand/ uL [facility] RBC 3.78(L) 3.80 - 5.10 Million/u L [facility] HGB 11.6(L) 11.7 - 15.5 g/dL [facility] HCT 36.2 35.0 - 45.0 % [facility] MCV 95.8 80.0 - 100.0 fL [facility] MCH 30.7 27.0 - 33.0 pg [facility] DIANN MCHC 32.0 32.0 - 36.0 g/dL [facility] Comment: For adults, a slight decrease in the calculated MCHC value (in the range of 30 to 32 g/dL) is most likely not clinically significant; however, it should be interpreted with caution in correlation with other red cell parameters and the patient's clinical condition. RDW 14.3 11.0 - 15.0 % [facility] DIANN PLT 242 140 - 400 Thousand/ uL [facility] MPV 10.3 7.5 - 12.5 fL [facility] DIANN ABS. NEUTROPHILS 2,118 1,500 - 7,800 cells/uL [facility] DIANN ABS. LYMPHOCYTES 3,192 850 - 3,900 cells/uL [facility] DIANN ABS. MONOCYTES 492 200 - 950 cells/uL [facility] DIANN ABS. EOSINOPHILS 150 15 - 500 cells/uL [facility] DIANN ABS. BASOPHILS 48 0 - 200 cells/uL [facility] [place] DIANN SEG NEUTROPHILS 35.3 % [facility] DIANN LYMPHOCYTES 53.2 % [facility] DIANN MONOCYTES 8.2 % [facility] DIANN EOSINOPHILS 2.5 % [facility] [place] DIANN BASOPHILS 0.8 % [facility] [place] DIANN 02/05/2025 9:08 AM CDT 02/06/2025 4:21 AM CDT Narrative Resulting Agency Comment Performing Organization Information: Site ID: [place] Name: [facility] Address: [address] [place] [phone] Director: Reymundo Rivera MD Soila Darnell MD LABORATORY Final Result [facility] [address] [address] * VITAMIN D, 25 OH (02/05/2025 9:08 AM CDT) VITAMIN D 25 HYDROXY TOTAL S/P/B 47 30 - 100 ng/mL [facility] Comment: Vitamin D Status 25-OH Vitamin D: Deficiency: <20 ng/mL Insufficiency: 20 - 29 ng/mL Optimal: > or = 30 ng/mL For 25-OH Vitamin D testing on patients on D2-supplementation and patients for whom quantitation of D2 and D3 fractions is required, the QuestAssureD(TM) 25-OH VIT D, (D2,D3), LC/MS/MS is recommended: order code 69778 (patients >2yrs). See Note 1 Note 1 For additional information, please refer to http://education.PodPonics/faq/XAY664 (This link is being provided for informational/ educational purposes only.) 02/05/2025 9:08 AM CDT 02/06/2025 4:21 AM CDT Narrative Resulting Agency Comment Performing Organization Information: Site ID: [place]ICA Name: [facility] Address: [address] [place], [place] [address] [address] Director: Reymundo Rivera MD Soila Darnell MD LABORATORY Final Result Performing Organization Address City/[facility] Co de Phone Number [facility]STICS - [facility]MAR MARTINEZ [facility] [address] [address] * MAGNESIUM (02/05/2025 9:08 AM CDT) MAGNESIUM 1.9 1.5 - 2.5 mg/dL [facility] [place] [facility] 02/05/2025 9:08 AM CDT 02/06/2025 4:21 AM CDT Narrative Resulting Agency Comment Performing Organization Information: Site ID: [place] Name: [facility] Address: [address] [place] [phone] Director: Reymundo Rivera MD Soila Darnell MD LABORATORY Final Result Performing Organization Address [facility] de Phone Number [facility] - OMAR MARTINEZ [facility] [address] [address], * XR PAIN CLINIC C-ARM (11/20/2024 8:27 [...] VE NON-REACTI VE 11/07/2019 10:59 AM CDT [facility] 11/06/2019 6:45 PM CDT us Vanessa Ogden MD LABORATORY Final Result [facility] [address] [place] [address], * COLONOSCOPY/EGD (06/21/2019) us Documents Scanned SCANNING Edited Result - Final from Last 3 Months or Most Recently Relevant to Health Maintenance Insurance [facility] MEDICARE Care Teams Tanning Drum Operator Relationship Specialty [place] [address] [place] [address] PCP - General FAMILY PRACTICE 08/11/22 Jordan Castro MD [address] [facility] [address] [place] [address] Surgeon ORTHOPAEDIC SURGERY 01/13/20 Akhil Vergara DO [address] [place] [address] INTERNAL MEDICINE 01/02/25
--- OUTSIDE RECORDS SUMMARY | 2025-02-14 16:31 | XMS_ITS | Encounter Summary ---
Author Organization [facility] Address [address] [place] [address] Care Team Providers Care Piling Cutter Name Role Phone Vanessa Ogden MD Primary Care Provider [phone] Jordan Castro MD Unavailable [phone] Soila Neumann MD Primary Care Provider [phone] Akhil Vergara DO Unavailable Encounter Details Date Type Department Care Team (Latest Contact Info) Description 11/13/2021 [place] Message Enc [facility] Medical Group Foot & Ankle Specialists [facility] [address] [place] [address] Ricky Ramsey, DPM [address] [place] [phone] msg [address] [facility] ([facility] central supply clerk Social History Tobacco Use Types Packs/Day Years [...] Sex Assigned at Female 06/28/2021 1:39 PM BREAD RACKER Legal Sex Female 3:51 PM BREAD RACKER Gender Identity Female 06/28/2021 1:39 PM BREAD RACKER Sexual Orientation Straight 06/28/2021 1: 39 PM BREAD RACKER Occupation Industry Job Start Date Job End [...] Description 02/21/2025 9:00 AM CDT Hospital Encounter [facility] [place] [place] [address] [id number] Carolyn Fernando MD [facility] [address] [place] [address] 02/21/2025 9:00 AM CDT - 02/21/2025 9:20 AM CDT Surgery [facility] [place] [address] [id number] Carolyn Fernando MD [facility] [address] [place] [address] BLOCK SACROILIAC JOINT 05/05/2025 1:00 PM BREAD RACKER Office Visit [facility] Medical Group Family & Internal Medicine [address] [phone] Soila Neumann MD [address] [place] [address] 08/15/2025 2:20 PM BREAD RACKER Office Visit [facility] Family & Internal [facility] [place] [address] [place] [address] [place] [address] [place] [address] Scheduled Procedures Name Priority Associated Diagnoses Date/Ti me BLOCK SACROILIAC JOINT SI joint arthritis 02/21/2025 9:00 AM CDT documented as of this encounter Visit Diagnoses Not on filedocumented in this encounter Additional Health Concerns Assessment Noted Time PHQ-9 Depression Total Score: 3 09/09/19 22 9:29 AM BREAD RACKER documented as of this encounter Care Teams Piling Cutter Relationship Specialty Start Date End Date Vanessa Ogden MD PCP - General INTERNAL MEDICINE 08/14/18 08/10/22 [place] [address] [place] [address] PCP - General FAMILY PRACTICE 08/11/22 Jordan Castro MD [address] [facility] [address] [place] [address] Surgeon ORTHOPAEDIC SURGERY 01/13/20 Akhil Vergara DO [address] [place] [address] INTERNAL MEDICINE 01/02/25 documented as of this encounter
--- OUTSIDE RECORDS SUMMARY | 2025-02-14 16:31 | XMS_ITS | Encounter Summary ---
Author Organization [facility] System Address [address] [place] [address] Care Team Providers Care Technology Assistant Name Role Phone Jordan Castro MD Unavailable [phone] Soila Neumann MD Primary Care Provider [phone] Akhil Vergara DO Unavailable Encounter Details Date Type Department Care Team (Late st Contact Info) Description 06/22/2023 StayClassy Message Enc [facility] Medical Group Family & Internal Medicine [facility] [address] [place] [address] Soila Neumann MD [address] [place] [address]. [address] [place] [address] Referral Social History Tobacco Use Types [...] Assigned at Female 06/28/2021 1:39 PM SAFETY INVESTIGATOR Legal Sex Female 3:51 PM SAFETY INVESTIGATOR Gender Identity Female 06/28/2021 1:39 PM SAFETY INVESTIGATOR Sexual Orientation Straight 06/28/2021 1: 39 PM SAFETY INVESTIGATOR Occupation Industry Job Start Date Job End Date RETIRED Not on file Not on file Not on file documented as of this encounter Plan of Treatment Upcoming Encounters Date Type Department Care Team (Latest Contact Info) Description 02/21/2025 9:00 AM CDT Hospital Encounter [facility] Interventional [place] [address] [id number] Carolyn Fernando MD Three [facility] [address] [place] [address] 02/21/2025 9:00 AM CDT - 02/21/2025 9:20 AM CDT Surgery [facility] Interventional Pain [place] [address] [id number] Carolyn Fernando MD Three [facility] [address] [place] [address] BLOCK SACROILIAC JOINT 05/05/2025 1:00 PM SAFETY INVESTIGATOR Office Visit [facility] Family & Internal Medicine [address] [phone] [place] [address] [email or web address] [place] [address] [id number] 08/15/2025 2:20 PM SAFETY INVESTIGATOR Office Visit [facility] Family & Internal Medicine [address] [address] [place] [address] [email or web address] [place] [address] [phone] Scheduled Procedures Name Priority Associated Diagnoses Date/Ti me BLOCK SACROILIAC JOINT SI joint arthritis 02/21/2025 9:00 AM CDT documented as of this encounter Visit Diagnoses Not on filedocumented in this encounter Additional Health Concerns Assessment Noted Time PHQ-9 Depression Total Score: 2 08/03/19 2:16 PM SAFETY INVESTIGATOR documented as of this encounter Care Teams Technology Assistant Relationship Specialty [place] [address] [facility]. [address] [place] [address] PCP - General FAMILY PRACTICE 08/11/22 Jordan Castro MD [address] [place], [place] [id number] Surgeon ORTHOPAEDIC SURGERY 01/13/20 Akhil Vergara DO [address] [place] [address] INTERNAL MEDICINE 01/02/25 documented as of this encounter
--- OUTSIDE RECORDS SUMMARY | 2025-02-14 16:31 | XMS_ITS | Encounter Summary ---
Author Organization [facility] System Address [address] [place] [address] Care Team Providers Care Physical Science Technician Name Role Phone Vanessa Ogden MD Primary Care Provider [phone] Jordan Castro MD Unavailable [phone] Soila Neumann MD Primary Care Provider [phone] Akhil Vergara DO Unavailable Encounter Details Date Type Department Care Team (Late st Contact Info) Description 11/02/2021 [email or web address] Message Enc [facility] Medical Group Family & Internal Medicine [facility] [address] [place] [address] [place] [address] [place] [address] [employer] medical cannabis renewal has [...] Sex Assigned at Female 06/28/2021 1:39 PM FOUNDATION ENGINEER Legal Sex Female 3:51 PM FOUNDATION ENGINEER Gender Identity Female 06/28/2021 1:39 PM FOUNDATION ENGINEER Sexual Orientation Straight 06/28/2021 1: 39 PM FOUNDATION ENGINEER Occupation Industry Job Start Date Job [...] Description 02/21/2025 9:00 AM CDT Hospital Encounter [facility] [place] [address] [id number] Carolyn Fernando MD [facility] [address] [place] [address] 02/21/2025 9:00 AM CDT - 02/21/2025 9:20 AM CDT Surgery [facility] [place] [address] [id number] Carolyn Fernando MD [facility] [address] [place] [address] BLOCK SACROILIAC JOINT 05/05/2025 1:00 PM FOUNDATION ENGINEER Office Visit [facility] Family & Internal Medicine [address] [address] Soila Neumann MD [address] [place] [address] 08/15/2025 2:20 PM FOUNDATION ENGINEER Office Visit [facility] Family & Internal Medicine [address] [place] [phone] [place] [address] [facility] [place] [address] Scheduled Procedures Name Priority Associated Diagnoses Date/Ti me BLOCK SACROILIAC JOINT SI joint arthritis 02/21/2025 9:00 AM CDT documented as of this encounter Visit Diagnoses Not on filedocumented in this encounter Additional Health Concerns Assessment Noted Time PHQ-9 Depression Total Score: 3 09/09/19 22 9:29 AM FOUNDATION ENGINEER documented as of this encounter Care Teams Physical Science Technician Relationship Specialty Start Date End Date Vanessa Ogden MD PCP - General INTERNAL MEDICINE 08/14/18 08/10/22 [place] [address] [address] [place] [address] PCP - General FAMILY PRACTICE 08/11/22 Jordan Castro MD [address] [facility] [address] [place] [address] Surgeon ORTHOPAEDIC SURGERY 01/13/20 Akhil Vergara DO [address] [place] [address] INTERNAL MEDICINE 01/02/25 documented as of this encounter
--- OUTSIDE RECORDS SUMMARY | 2025-02-14 16:31 | XMS_ITS | Encounter Summary ---
Author Organization [facility] Address [address] [place] [address] Care Team Providers Care Consumer Loan Manager Name Role Phone Vanessa Ogden MD Primary Care Provider [phone] Jordan Castro MD Unavailable [phone] Soila Neumann MD Primary Care Provider [phone] Ahkil Vergara DO Unavailable Encounter Details Date Type Department Care Team (Late st Contact Info) Description 06/02/2020 Beyond [employer] Message Enc [facility] Medical Group Family & Internal Medicine [facility] [address] [place] [address] [place] Ogden [place] [id number] [place] [address] RE: Question Social History Tobacco Use Types Packs/Day Years Used Date Smoking Tobacco: Never Smokeless Tobacco: Never Alcohol Use Standard Drinks/Week Comments Yes 0 (1 standard drink = 0.6 oz pur e alcohol) Rare use PHQ-2 Answer Date Recorded PHQ-2 Score 0 09/28/2018 Comments No Sex and Gender Information Value Date Recorded Sex Assigned at Female 06/28/2021 1:39 PM FISHING ACCESSORIES MAKER Legal Sex Female 3:51 PM FISHING ACCESSORIES MAKER Gender Identity Female 06/28/2021 1:39 PM FISHING ACCESSORIES MAKER Sexual Orientation Straight 06/28/2021 1: 39 PM FISHING ACCESSORIES MAKER COVID-19 Exposure Response Date Recorded In the last month, have you been in contact with someone who was confirmed or suspected to have Coronavirus / COVID-19? No / Unsure 05/25/2020 3:08 PM FISHING ACCESSORIES MAKER documented as of this encounter Plan of Treatment Upcoming Encounters Date Type Department Care Team (Latest Contact Info) Description 02/21/2025 9:00 AM CDT Hospital Encounter [facility] Interventional Pain [place] [address] [id number] Carolyn Fernando MD Three [facility] [address] [place] [address] 02/21/2025 9:00 AM CDT - 02/21/2025 9:20 AM CDT Surgery [facility] Interventional Pain [place] [address] [id number] Carolyn Fernando MD Three [facility] [address] [place] [address] BLOCK SACROILIAC JOINT 05/05/2025 1:00 PM FISHING ACCESSORIES MAKER Office Visit [facility] Family & Internal Medicine [address] [phone] [place] [address] [email or web address] [place]. [address] [place] [address] 08/15/2025 2:20 PM FISHING ACCESSORIES MAKER Office Visit [facility] Family & Internal Medicine [address] [phone] [place] [address] [facility] [address] [place] [address] Scheduled Procedures Name Priority Associated Diagnoses Date/Ti me BLOCK SACROILIAC JOINT SI joint arthritis 02/21/2025 9:00 AM CDT documented as of this encounter Visit Diagnoses Not on filedocumented in this encounter Additional Health Concerns Infection Onset Date Last Indicated Resolved Time COVID-19 Rule Out 09/08/2021 09/08/2021 09/08/2021 10:37 AM FISHING ACCESSORIES MAKER documented as of this encounter Care Teams Consumer Loan Manager Relationship Specialty Start Date End Date Vanessa Ogden MD PCP - General INTERNAL MEDICINE 08/14/18 08/10/22 [place] [address] [facility]. [address] [place] [address] PCP - General FAMILY PRACTICE 08/11/22 Jordan Castro MD [address] [facility] [address] [place] [address] Surgeon ORTHOPAEDIC SURGERY 01/13/20 Akhil Vergara DO [address] [place] [address] INTERNAL MEDICINE 01/02/25 documented as of this encounter
--- OUTSIDE RECORDS SUMMARY | 2025-02-14 16:31 | XMS_ITS | Encounter Summary ---
Author Organization [facility] Address [address] [place] [address] Care Team Providers Care Horse Trader Name Role Phone Jordan Castro MD Unavailable [phone] Soila Neumann MD Primary Care Provider [phone] Akhil Vergara DO Unavailable Encounter Details Date Type Department Care Team (Late st Contact Info) Description 08/12/2022 [email or web address] Message Enc [facility] Medical Group Family & Internal Medicine [facility] [id number] [place] [address] Vanessa Ogden MD [address] [place] [address] Referral Social History Tobacco Use Types Packs/Day [...] Sex Assigned at Female 06/28/2021 1:39 PM CROWN BLOCKER Legal Sex Female 3:51 PM CROWN BLOCKER Gender Identity Female 06/28/2021 1:39 PM CROWN BLOCKER Sexual Orientation Straight 06/28/2021 1: 39 PM CROWN BLOCKER Occupation Industry Job Start Date Job End Date RETIRED Not on file Not on file Not on file COVID-19 Exposure Response Date Recorded In the last 10 days, have yo u been in contact with someone who was confirmed or suspected to have Coronavirus/COVID-19? No / Unsure 08/03/2022 1:31 PM CROWN BLOCKER documented as of this encounter Plan of Treatment Upcoming Encounters Date Type Department Care Team (Latest Contact Info) Description 02/21/2025 9:00 AM CDT Hospital Encounter [facility] Interventional [place] [address] [id number] Carolyn Fernando MD Three [facility] [address] [place] [address] 02/21/2025 9:00 AM CDT - 02/21/2025 9:20 AM CDT Surgery [facility] Interventional [place] [address] [id number] Carolyn Fernando MD Three [facility] [address] [place] [address] BLOCK SACROILIAC JOINT 05/05/2025 1:00 PM CROWN BLOCKER Office Visit [facility] Family & Internal Medicine [address] [address] [place] [address] [place] [address] 08/15/2025 2:20 PM CROWN BLOCKER Office Visit [facility] Family & Internal Medicine [address] [address] [place] [address] [place] [address] Scheduled Procedures Name Priority Associated Diagnoses Date/Ti me BLOCK SACROILIAC JOINT SI joint arthritis 02/21/2025 9:00 AM CDT documented as of this encounter Visit Diagnoses Not on filedocumented in this encounter Additional Health Concerns Assessment Noted Time PHQ-9 Depression Total Score: 2 08/03/19 23 2:16 PM CROWN BLOCKER documented as of this encounter Care Teams Horse Trader Relationship Specialty [place] [address] [address] [place] [address] PCP - General FAMILY PRACTICE 08/11/22 Jordan Castro MD [address] [place] [address] Surgeon ORTHOPAEDIC SURGERY 01/13/20 Akhil Vergara DO [address] [place] [address] INTERNAL MEDICINE 01/02/25 documented as of this encounter
--- OUTSIDE RECORDS SUMMARY | 2025-02-14 16:31 | XMS_ITS | Encounter Summary ---
Author Organization [facility] Address [address] [place] [address] Care Team Providers Care Collar Stay Fuser Tender Name Role Phone Vanessa Ogden MD Primary Care Provider [phone] Jordan Castro MD Unavailable [phone] Soila Neumann MD Primary Care Provider [phone] Akhil Vergara DO Unavailable Encounter Details Date Type Department Care Team (Late st Contact Info) Description 06/02/2020 [employer] Message Enc [facility] Medical Group Family & Internal Medicine [facility] [address] [place] [address] [place] [address] [place] [address] Referral Request Social History Tobacco Use Types Packs/Day Years Used Date Smoking Tobacco: Never Smokeless Tobacco: Never Alcohol Use Standard Drinks/Week Comments Yes 0 (1 standard drink = 0.6 oz pur e alcohol) Rare use PHQ-2 Answer Date Recorded PHQ-2 Score 0 09/28/2018 Comments No Sex and Gender Information Value Date Recorded Sex Assigned at Female 06/28/2021 1:39 PM PRESS SHOP SUPERVISOR Legal Sex Female 3:51 PM PRESS SHOP SUPERVISOR Gender Identity Female 06/28/2021 1:39 PM PRESS SHOP SUPERVISOR Sexual Orientation Straight 06/28/2021 1: 39 PM PRESS SHOP SUPERVISOR COVID-19 Exposure Response Date Recorded In the last month, have you been in contact with someone who was confirmed or suspected to have Coronavirus / COVID-19? No / Unsure 05/25/2020 3:08 PM PRESS SHOP SUPERVISOR documented as of this encounter Progress Notes * Porsha Manzo - 06/09/2020 10:32 AM CST We will get this rerouted and contact the patient. Thank you! S SHOP SUPERVISOR documented in this encounter Plan of Treatment Upcoming Encounters Date Type Department Care Team (Latest Contact Info) Description 02/21/2025 9:00 AM CDT Hospital Encounter [facility] Interventional [place] [address] [id number] Carolyn Fernando MD Three [facility] [address] [place] [address] 02/21/2025 9:00 AM CDT - 02/21/2025 9:20 AM CDT Surgery [facility] Interventional [place] [address] [phone] Carolyn Fernando MD Three [facility] [address] [place] [address] BLOCK SACROILIAC JOINT 05/05/2025 1:00 PM PRESS SHOP SUPERVISOR Office Visit [facility] Family & Internal Medicine [address] [phone] [place] [address] [place] [id number] 08/15/2025 2:20 PM PRESS SHOP SUPERVISOR Office Visit [facility] Family & Internal Medicine [address] [phone] [place] [address] [place] [address] Scheduled Procedures Name Priority Associated Diagnoses Date/Ti me BLOCK SACROILIAC JOINT SI joint arthritis 02/21/2025 9:00 AM CDT documented as of this encounter Visit Diagnoses Not on filedocumented in this encounter Additional Health Concerns Infection Onset Date Last Indicated Resolved Time COVID-19 Rule Out 09/08/2021 09/08/2021 09/08/2021 10:37 AM PRESS SHOP SUPERVISOR documented as of this encounter Care Teams Collar Stay Fuser Tender Relationship Specialty Start Date End Date Vanessa Ogden MD PCP - General INTERNAL MEDICINE 08/14/18 08/10/22 [place] [address] [facility] [address] [place] [address] PCP - General FAMILY PRACTICE 08/11/22 Jordan Castro MD [address] [place], [place] [id number] Surgeon ORTHOPAEDIC SURGERY 01/13/20 Akhil Vergara DO [address] [place] [address] INTERNAL MEDICINE 01/02/25 documented as of this encounter
--- OUTSIDE RECORDS SUMMARY | 2025-02-14 16:31 | XMS_ITS | Encounter Summary ---
Author Organization [facility] System Address [address] [place] [address] Care Team Providers Care Sas Etl Developer Name Role Phone Vanessa Ogden MD Primary Care Provider [phone] Jordan Castro MD Unavailable [phone] Soila Neumann MD Primary Care Provider [phone] Akhil Vergara DO Unavailable Encounter Details Date Type Department Care Team (Late st Contact Info) Description 03/12/2020 HTP Message Enc [facility] Medical Group Family & Internal Medicine [address] [address] [facility] Provider Appointment Social History Tobacco Use Types Packs/Day Years Used Date Smoking Tobacco: Never Smokeless Tobacco: Never Alcohol Use Standard Drinks/Week Comments Yes 0 (1 standard drink = 0.6 oz pur e alcohol) Rare use PHQ-2 Answer Date Recorded PHQ-2 Score 0 09/28/2018 Comments No Sex and Gender Information Value Date Recorded Sex Assigned at Female 06/28/2021 1:39 PM SUPERVISOR COMPOSING ROOM Legal Sex Female 3:51 PM SUPERVISOR COMPOSING ROOM Gender Identity Female 06/28/2021 1:39 PM SUPERVISOR COMPOSING ROOM Sexual Orientation Straight 06/28/2021 1: 39 PM SUPERVISOR COMPOSING ROOM COVID-19 Exposure Response Date Recorded In the last month, have you been in contact with someone who was confirmed or suspected to have Coronavirus / COVID-19? No / Unsure 02/21/2020 3:15 PM CDT documented as of this encounter Plan of Treatment Upcoming Encounters Date Type Department Care Team (Latest Contact Info) Description 02/21/2025 9:00 AM CDT Hospital Encounter [facility] Interventional [place] [address] [id number] Carolyn Fernando MD Three [facility] [address] [place] [address] 02/21/2025 9:00 AM CDT - 02/21/2025 9:20 AM CDT Surgery [facility] Interventional Pain [place] [address] [id number] Carolyn Fernando MD Three [facility] [address] [place] [address] BLOCK SACROILIAC JOINT 05/05/2025 1:00 PM SUPERVISOR COMPOSING ROOM Office Visit [facility] Family & Internal Medicine [address] [phone] [place] [address] [facility] [employer] [address] [place] [address] 08/15/2025 2:20 PM SUPERVISOR COMPOSING ROOM Office Visit [facility] Family & Internal [address] [phone] [place] [address] [facility] [place] [address] Scheduled Procedures Name Priority Associated Diagnoses Date/Ti me BLOCK SACROILIAC JOINT SI joint arthritis 02/21/2025 9:00 AM CDT documented as of this encounter Visit Diagnoses Not on filedocumented in this encounter Additional Health Concerns Infection Onset Date Last Indicated Resolved Time COVID-19 Rule Out 09/08/2021 09/08/2021 09/08/2021 10:37 AM SUPERVISOR COMPOSING ROOM documented as of this encounter Care Teams Sas Etl Developer Relationship Specialty Start Date End Date Vanessa Ogden MD PCP - General INTERNAL MEDICINE 08/14/18 08/10/22 [place] [address] [facility] [place], [place] [phone] PCP - General FAMILY PRACTICE 08/11/22 Jordan Castro MD [address] [place] [address] Surgeon ORTHOPAEDIC SURGERY 01/13/20 Akhil Vergara DO [address] [place] [address] INTERNAL MEDICINE 01/02/25 documented as of this encounter
--- OUTSIDE RECORDS SUMMARY | 2025-02-14 16:31 | XMS_ITS | Encounter Summary ---
Author Organization [facility] Address [address] [place] [address] Care Team Providers Care Crisis Intervention Counselor Name Role Phone Jordan Castro MD Unavailable [phone] Soila Neumann MD Primary Care Provider [phone] Akhil Vergara DO Unavailable Encounter Details Date Type Department Care Team (Late st Contact Info) Description 2024 [employer] Message Enc [facility] Medical Group Family & Internal Medicine [facility] [address] [place] [phone] Soila Neumann MD [address] [place] [address]. [address] [place] [address] chest/lung illness Social History Tobacco Use [...] Sex Assigned at Female 06/28/2021 1:39 PM GLUING MACHINE OPERATOR Legal Sex Female 3:51 PM GLUING MACHINE OPERATOR Gender Identity Female 06/28/2021 1:39 PM GLUING MACHINE OPERATOR Sexual Orientation Straight 06/28/2021 1: 39 PM GLUING MACHINE OPERATOR Occupation Industry Job Start Date [...] things Not at all 07/11/2024 2:36 PM GLUING MACHINE OPERATOR Alana Azar MA Act norah Feeling down, depressed, or hopeless Not at all 07/11/2024 2:36 PM GLUING MACHINE OPERATOR Alana Azar MA Active Patient Health Questionnaire-2 Score 0 07/11/2024 2:36 PM GLUING MACHINE OPERATOR Alana Azar MA Active documented as of this encounter Plan of Treatment Upcoming Encounters Date Type Department Care Team (Latest Contact Info) Description 02/21/2025 9:00 AM CDT Hospital Encounter [facility] Interventional [place] [address] [id number] Carolyn Fernando MD Three [facility] [address] [place] [address] 02/21/2025 9:00 AM CDT - 02/21/2025 9:20 AM CDT Surgery [facility] Interventional [place] [address] [id number] Carolyn Fernando MD Three [facility] [address] [place] [address] BLOCK SACROILIAC JOINT 05/05/2025 1:00 PM GLUING MACHINE OPERATOR Office Visit [facility] Medical Group Family & Internal Medicine [address] [phone] Soila Neumann MD [address] [place] [address] 08/15/2025 2:20 PM GLUING MACHINE OPERATOR Office Visit [facility] Medical Group Family & Internal Medicine - [place] [address] [place] [address] [place] [address] [facility] [address] [address] [place] [address] Scheduled Procedures Name Priority Associated Diagnoses Date/Ti me BLOCK SACROILIAC JOINT SI joint arthritis 02/21/2025 9:00 AM CDT documented as of this encounter Visit Diagnoses Not on filedocumented in this encounter Additional Health Concerns Assessment Noted Time PHQ-9 Depression Total Score: 2 08/03/19 2:16 PM GLUING MACHINE OPERATOR documented as of this encounter Care Teams Crisis Intervention Counselor Relationship Specialty [place] [address] [address] [place] [address] PCP - General FAMILY PRACTICE 08/11/22 Jordan Castro MD [address] [facility] [address] [place], [place] [id number] Surgeon ORTHOPAEDIC SURGERY 01/13/20 Akhil Vergara DO [address] [place] [address] INTERNAL MEDICINE 01/02/25 documented as of this encounter
--- OUTSIDE RECORDS SUMMARY | 2025-02-14 16:31 | XMS_ITS | Encounter Summary ---
Author Organization [facility] Address [address] [place] [address] Care Team Providers Care Filler Sifter Machine Name Role Phone Vanessa Ogden MD Primary Care Provider Jordan Castro MD Unavailable [phone] Soila Neumann MD Primary Care Provider [phone] Akhil Vergara DO Unavailable Encounter Details Date Type Department Care Team (Late st Contact Info) Description 10/30/2021 [facility] Message Enc [facility] Medical [facility] Family & Internal Medicine [facility] [address] [place] [address] Vanessa Ogden [place] [id number] [place] [address] Medical Cannabis renewal- Social History Tobacco [...] Sex Assigned at Female 06/28/2021 1:39 PM DRAW FRAME OPERATOR Legal Sex Female 3:51 PM DRAW FRAME OPERATOR Gender Identity Female 06/28/2021 1:39 PM DRAW FRAME OPERATOR Sexual Orientation Straight 06/28/2021 1: 39 PM DRAW FRAME OPERATOR Occupation Industry Job Start Date Job [...] [facility] [place] [address] [id number] Carolyn Fernando MD [facility] [address] [place] [address] 02/21/2025 9:00 AM CDT - 02/21/2025 9:20 AM CDT Surgery [facility] [place]ventional [place] [address] [id number] Carolyn Fernando MD [facility] [address] [place] [address] BLOCK SACROILIAC JOINT 05/05/2025 1:00 PM DRAW FRAME OPERATOR Office Visit [facility] Family & Internal Medicine [address] [phone] Soila Neumann MD [address] [place] [address] 08/15/2025 2:20 PM DRAW FRAME OPERATOR Office Visit [facility] Family & Internal Medicine [address] [phone] [place] [address] [facility] [address] [place] [address] Scheduled Procedures Name Priority Associated Diagnoses Date/Ti me BLOCK SACROILIAC JOINT SI joint arthritis 02/21/2025 9:00 AM CDT documented as of this encounter Visit Diagnoses Not on filedocumented in this encounter Additional Health Concerns Assessment Noted Time PHQ-9 Depression Total Score: 3 09/09/19 22 9:29 AM DRAW FRAME OPERATOR documented as of this encounter Care Teams Filler Sifter Machine Relationship Specialty Start Date End Date Vanessa Ogden MD PCP - General INTERNAL MEDICINE 08/14/18 08/10/22 [place] [address] [facility] [place] [address] PCP - General FAMILY PRACTICE 08/11/22 Jordan Castro MD [address] [facility] [address] [place] [address] Surgeon ORTHOPAEDIC SURGERY 01/13/20 Akhil Vergara DO [address] [place] [address] INTERNAL MEDICINE 01/02/25 documented as of this encounter
--- OUTSIDE RECORDS SUMMARY | 2025-02-14 16:31 | XMS_ITS | Encounter Summary ---
Author Organization [facility] Address [address] [place] [address] Care Team Providers Care Dynamometer Repairer Name Role Phone Vanessa Ogden MD Primary Care Provider [phone] Jordan Castro MD Unavailable [phone] Soila Neumann MD Primary Care Provider [phone] Akhil Vergara DO Unavailable Encounter Details Date Type Department Care Team (Late st Contact Info) Description 02/21/2020 [facility] Message Enc [facility] Medical Group Family & Internal Medicine [facility] [address] [place] [address] [place] [address] [place] [address] RE: Test Results Social History Tobacco Use Types Packs/Day Years Used Date Smoking Tobacco: Never Smokeless Tobacco: Never Alcohol Use Standard Drinks/Week Comments Yes 0 (1 standard drink = 0.6 oz pur e alcohol) Rare use PHQ-2 Answer Date Recorded PHQ-2 Score 0 09/28/2018 Comments No Sex and Gender Information Value Date Recorded Sex Assigned at Female 06/28/2021 1:39 PM INTERNIST Legal Sex Female 3:51 PM INTERNIST Gender Identity Female 06/28/2021 1:39 PM INTERNIST Sexual Orientation Straight 06/28/2021 1: 39 PM INTERNIST COVID-19 Exposure Response Date Recorded In the last month, have you been in contact with someone who was confirmed or suspected to have Coronavirus / COVID-19? No / Unsure 02/21/2020 3:15 PM CDT documented as of this encounter Plan of Treatment Upcoming Encounters Date Type Department Care Team (Latest Contact Info) Description 02/21/2025 9:00 AM CDT Hospital Encounter [facility] Interventional Pain [place] [address] [id number] Carolyn Fernando MD Three [facility] [address] [place] [address] 02/21/2025 9:00 AM CDT - 02/21/2025 9:20 AM CDT Surgery [facility] Interventional Pain Management [place] [address] [id number] Carolyn Fernando MD Three [facility] [address] [place] [address] BLOCK SACROILIAC JOINT 05/05/2025 1:00 PM INTERNIST Office Visit [facility] Family & Internal Medicine [address] [address] [place] [address] [facility]. [address] [place] [address] [id number] 08/15/2025 2:20 PM INTERNIST Office Visit [facility] Family & Internal Medicine [address] [address] [place] [address] [facility] [place]. [address] [place] [address] [id number] Scheduled Procedures Name Priority Associated Diagnoses Date/Ti me BLOCK SACROILIAC JOINT SI joint arthritis 02/21/2025 9:00 AM CDT documented as of this encounter Visit Diagnoses Not on filedocumented in this encounter Additional Health Concerns Infection Onset Date Last Indicated Resolved Time COVID-19 Rule Out 09/08/2021 09/08/2021 09/08/2021 10:37 AM INTERNIST documented as of this encounter Care Teams Dynamometer Repairer Relationship Specialty Start Date End Date Vanessa Ogden MD PCP - General INTERNAL MEDICINE 08/14/18 08/10/22 [place] [address] [facility]. [address] [place] [address] PCP - General FAMILY PRACTICE 08/11/22 Jordan Castro MD [address] [facility] [address] [place], [place] [phone] Surgeon ORTHOPAEDIC SURGERY 01/13/20 Akhil Vergara DO [address] [place] [address] INTERNAL MEDICINE 01/02/25 documented as of this encounter
--- OUTSIDE RECORDS SUMMARY | 2025-02-14 16:31 | XMS_ITS | Encounter Summary ---
Author Organization [facility] Address [address] [place] [address] Care Team Providers Care Resaw Operator Name Role Phone Vanessa Ogden MD Primary Care Provider [phone] Jordan Castro MD Unavailable [phone] Soila Neumann MD Primary Care Provider [phone] Akhil Vergara DO Unavailable Encounter Details Date Type Department Care Team (Late st Contact Info) Description 08/30/2021 [employer] Message Enc [facility] Medical Group Family & Internal Medicine [facility] [address] [place] [address] [place]essa Ogden [place] [address] [place] [address] Addendum to email request 08/30/21 Social [...] Sex Assigned at Female 06/28/2021 1:39 PM SUB PRIOR Legal Sex Female 3:51 PM SUB PRIOR Gender Identity Female 06/28/2021 1:39 PM SUB PRIOR Sexual Orientation Straight 06/28/2021 1: 39 PM SUB PRIOR Occupation Industry Job Start Date Job End Date RETIRED Not on file Not on file Not on file COVID-19 Exposure Response Date Recorded In the last 10 days, have yo u been in contact with someone who was confirmed or suspected to have Coronavirus/COVID-19? No / Unsure 08/13/2021 11:10 AM SUB PRIOR documented as of this encounter Plan of Treatment Upcoming Encounters Date Type Department Care Team (Latest Contact Info) Description 02/21/2025 9:00 AM CDT Hospital Encounter [facility] Interventional [place] [address] [id number] Carolyn Fernando MD [facility] [address] [place] [address] 02/21/2025 9:00 AM CDT - 02/21/2025 9:20 AM CDT Surgery [facility] Interventional [place] [address] [phone] Carolyn Fernando MD [facility] [address] [place] [address] BLOCK SACROILIAC JOINT 05/05/2025 1:00 PM SUB PRIOR Office Visit [facility] Family & Internal Medicine [address] [phone] Soila Neumann MD [address] [place] [address] 08/15/2025 2:20 PM SUB PRIOR Office Visit [facility] Family & Internal Medicine [place] [address] [place] [address] [place] [address] [facility] Al[facility]. [address] [place] [address] Scheduled Procedures Name Priority Associated Diagnoses Date/Ti me BLOCK SACROILIAC JOINT SI joint arthritis 02/21/2025 9:00 AM CDT documented as of this encounter Visit Diagnoses Not on filedocumented in this encounter Additional Health Concerns Infection Onset Date Last Indicated Resolved Time COVID-19 Rule Out 09/08/2021 09/08/2021 09/08/2021 10:37 AM SUB PRIOR documented as of this encounter Care Teams Resaw Operator Relationship Specialty Start Date End Date Vanessa Ogden MD PCP - General INTERNAL MEDICINE 08/14/18 08/10/22 [place] [address] [facility] [address] [place] [address] PCP - General FAMILY PRACTICE 08/11/22 Jordan Castro MD 6812 [facility] [address] [place] [address] Surgeon ORTHOPAEDIC SURGERY 01/13/20 Akhil Vergara DO [address] [place] [address] INTERNAL MEDICINE 01/02/25 documented as of this encounter
--- OUTSIDE RECORDS SUMMARY | 2025-02-14 16:31 | XMS_ITS | Encounter Summary ---
Author Organization [facility] Address [address] [place] [address] Care Team Providers Care Blood Typer Name Role Phone Vanessa Ogden MD Primary Care Provider [phone] Jordan Castro MD Unavailable [phone] Soila Neumann MD Primary Care Provider [phone] Akhil Vergara DO Unavailable Encounter Details Date Type Department Care Team (Late st Contact Info) Description 11/04/2021 [employer] Message Enc [facility] Medical Group Family & Internal Medicine [facility] [address] [place] [address] [place]essa Ogden [place] [address] [place] [address] prior email to you Social History [...] Sex Assigned at Female 06/28/2021 1:39 PM COMBINER OPERATOR Legal Sex Female 3:51 PM COMBINER OPERATOR Gender Identity Female 06/28/2021 1:39 PM COMBINER OPERATOR Sexual Orientation Straight 06/28/2021 1: 39 PM COMBINER OPERATOR Occupation Industry Job Start Date Job End Date RETIRED Not on file Not on file Not on file documented as of this encounter Plan of Treatment Upcoming Encounters Date Type Department Care Team (Latest Contact Info) Description 02/21/2025 9:00 AM CDT Hospital Encounter [facility] Interventional [place] [address] [id number] Carolyn Fernando MD Three [facility] [address] [place] [address] 02/21/2025 9:00 AM CDT - 02/21/2025 9:20 AM CDT Surgery [facility] Interventional [place] [address] [id number] Carolyn Fernando MD Three [facility] [address] [place] [address] BLOCK SACROILIAC JOINT 05/05/2025 1:00 PM COMBINER OPERATOR Office Visit [facility] Family & Internal Medicine [address] [phone] [place] [address] [place] [address] [phone] 08/15/2025 2:20 PM COMBINER OPERATOR Office Visit [facility] Family & Internal Medicine [address] [address] [place] [address] [place] [address] [phone] Scheduled Procedures Name Priority Associated Diagnoses Date/Ti me BLOCK SACROILIAC JOINT SI joint arthritis 02/21/2025 9:00 AM CDT documented as of this encounter Visit Diagnoses Not on filedocumented in this encounter Additional Health Concerns Assessment Noted Time PHQ-9 Depression Total Score: 3 09/09/19 22 9:29 AM COMBINER OPERATOR documented as of this encounter Care Teams Blood Typer Relationship Specialty Start Date End Date Vanessa Ogden MD PCP - General INTERNAL MEDICINE 08/14/18 08/10/22 [place] [address] [facility]. [address] [place] [address] PCP - General FAMILY PRACTICE 08/11/22 Jordan Castro MD [address] [place] [address] Surgeon ORTHOPAEDIC SURGERY 01/13/20 Akhil Vergara DO [address] [place] [address] INTERNAL MEDICINE 01/02/25 documented as of this encounter
--- OUTSIDE RECORDS SUMMARY | 2025-02-14 16:31 | XMS_ITS | Encounter Summary ---
Author Organization [facility] Address [address] [place] [address] Care Team Providers Care Senior Software Engineer Analytics Name Role Phone Vanessa Ogden MD Primary Care Provider [phone] Jordan Castro MD Unavailable [phone] Soila Neumann MD Primary Care Provider [phone] Akhil Vergara DO Unavailable Encounter Details Date Type Department Care Team (Late st Contact Info) Description 08/02/2021 Animail Message Enc [facility] Medical Group Family & Internal Medicine [facility] [address] [place] [address] [place] Ogden [place] [id number] [place] [address] Hydrocodone Refil Social History Tobacco Use [...] Sex Assigned at Female 06/28/2021 1:39 PM SENIOR CONTROLS ENGINEER Legal Sex Female 3:51 PM SENIOR CONTROLS ENGINEER Gender Identity Female 06/28/2021 1:39 PM SENIOR CONTROLS ENGINEER Sexual Orientation Straight 06/28/2021 1: 39 PM SENIOR CONTROLS ENGINEER Occupation Industry Job Start Date Job End Date RETIRED Not on file Not on file Not on file COVID-19 Exposure Response Date Recorded In the last month, have you been in contact with someone who was confirmed or suspected to have Coronavirus / COVID-19? No / Unsure 07/12/2021 9:49 AM SENIOR CONTROLS ENGINEER documented as of this encounter Plan of Treatment Upcoming Encounters Date Type Department Care Team (Latest Contact Info) Description 02/21/2025 9:00 AM CDT Hospital Encounter [facility] [place] [address] [id number] Carolyn Fernando MD [facility] [address] [place] [address] 02/21/2025 9:00 AM CDT - 02/21/2025 9:20 AM CDT Surgery [facility] [place]ventional [place] [address] [id number] Carolyn Fernando MD [facility] [address] [place] [address] BLOCK SACROILIAC JOINT 05/05/2025 1:00 PM SENIOR CONTROLS ENGINEER Office Visit [facility] Family & Internal Medicine [address] [phone] Soila Neumann MD [address] [place] [address] [phone] 08/15/2025 2:20 PM SENIOR CONTROLS ENGINEER Office Visit [facility] Family & Internal Medicine [address] [phone] [place] [address] [facility] [address] [place] [address] Scheduled Procedures Name Priority Associated Diagnoses Date/Ti me BLOCK SACROILIAC JOINT SI joint arthritis 02/21/2025 9:00 AM CDT documented as of this encounter Visit Diagnoses Not on filedocumented in this encounter Additional Health Concerns Infection Onset Date Last Indicated Resolved Time COVID-19 Rule Out 09/08/2021 09/08/2021 09/08/2021 10:37 AM SENIOR CONTROLS ENGINEER documented as of this encounter Care Teams Senior Software Engineer Analytics Relationship Specialty Start Date End Date Vanessa Ogden MD PCP - General INTERNAL MEDICINE 08/14/18 08/10/22 [place] [address] [facility] [address]. [address] [place] [address] PCP - General FAMILY PRACTICE 08/11/22 Jordan Castro MD [address] [facility] [address] [place] [address] Surgeon ORTHOPAEDIC SURGERY 01/13/20 Akhil Vergara DO [address] [place] [address] INTERNAL MEDICINE 01/02/25 documented as of this encounter
--- OUTSIDE RECORDS SUMMARY | 2025-02-14 16:31 | XMS_ITS | Encounter Summary ---
Author Organization [facility] Address [address] [place] [address] Care Team Providers Care Shear Setter Name Role Phone Vanessa Ogden MD Primary Care Provider [phone] Jordan Castro MD Unavailable [phone] Soila Neumann MD Primary Care Provider Akhil Vergara DO Unavailable Encounter Details Date Type Department Care Team (Late st Contact Info) Description 06/08/2020 [employer] Message Enc [facility] Medical Group Family & Internal Medicine [address] [address] [facility] Provider RE:Appointment Social History Tobacco Use Types Packs/Day Years Used Date Smoking Tobacco: Never Smokeless Tobacco: Never Alcohol Use Standard Drinks/Week Comments Yes 0 (1 standard drink = 0.6 oz pur e alcohol) Rare use PHQ-2 Answer Date Recorded PHQ-2 Score 0 09/28/2018 Comments No Sex and Gender Information Value Date Recorded Sex Assigned at Female 06/28/2021 1:39 PM SENIOR STORAGE ENGINEER Legal Sex Female 3:51 PM SENIOR STORAGE ENGINEER Gender Identity Female 06/28/2021 1:39 PM SENIOR STORAGE ENGINEER Sexual Orientation Straight 06/28/2021 1: 39 PM SENIOR STORAGE ENGINEER COVID-19 Exposure Response Date Recorded In the last month, have you been in contact with someone who was confirmed or suspected to have Coronavirus / COVID-19? No / Unsure 05/25/2020 3:08 PM SENIOR STORAGE ENGINEER documented as of this encounter Plan of Treatment Upcoming Encounters Date Type Department Care Team (Latest Contact Info) Description 02/21/2025 9:00 AM CDT Hospital Encounter [facility] Interventional [place] [address] [id number] Carolyn Fernando MD Three [facility] [address] [place] [address] 02/21/2025 9:00 AM CDT - 02/21/2025 9:20 AM CDT Surgery [facility] Interventional Pain Management [place] [address] [id number] Carolyn Fernando MD Three [facility] [address] [place] [address] BLOCK SACROILIAC JOINT 05/05/2025 1:00 PM SENIOR STORAGE ENGINEER Office Visit [facility] Family & Internal Medicine [address] [phone] [place] [address] [facility] E[facility]. [address] [place] [address] 08/15/2025 2:20 PM SENIOR STORAGE ENGINEER Office Visit [facility] Family & Internal [address] [phone] [place] [address] [facility]. [address] [place] [address] Scheduled Procedures Name Priority Associated Diagnoses Date/Ti me BLOCK SACROILIAC JOINT SI joint arthritis 02/21/2025 9:00 AM CDT documented as of this encounter Visit Diagnoses Not on filedocumented in this encounter Additional Health Concerns Infection Onset Date Last Indicated Resolved Time COVID-19 Rule Out 09/08/2021 09/08/2021 09/08/2021 10:37 AM SENIOR STORAGE ENGINEER documented as of this encounter Care Teams Shear Setter Relationship Specialty Start Date End Date Vanessa Ogden MD PCP - General INTERNAL MEDICINE 08/14/18 08/10/22 [place] [address] [facility]. [address] [place], [place] [phone] PCP - General FAMILY PRACTICE 08/11/22 Jordan Castro MD [address] [place] [address] Surgeon ORTHOPAEDIC SURGERY 01/13/20 Akhil Vergara DO [address] [place] [address] INTERNAL MEDICINE 01/02/25 documented as of this encounter
--- OUTSIDE RECORDS SUMMARY | 2025-02-14 16:31 | XMS_ITS | Clinical Summary ---
Author Organization [facility] 2 Address [address] [facility] [place] [address] Care Team Providers Care Curing Machine Operator Name Role Phone Trung Miles MD Unavailable [phone] Soila Neumann MD Primary Care Provider [phone] Allergies Active Allergy Reactions Criticality Noted Date [...] taking.Reported on 07/22/2024 CYANOCOBALAMIN /FOLIC ACID (VITAMIN [id number] ACID) 1,000-400 mcg tablet, sublingual 0 0 [...] History Surgery Date Site/Laterality Comments THYROIDECTOMY Thyroidectomy OK APPENDECTOMY Appendectomy - (Added by TW Conv) OK TONSILLECTOMY PRIMARY/SEC ONDARY <AGE 12 Tonsillectomy - (Added by TW Conv) OK TOTAL ABDOMINAL HYSTERECT W/WO RMVL TUBE OVARY Hysterectomy - (Added by TW Conv) OK EXPLORATORY LAPAROTOMY CELIOTOMY W/WO BIOPSY SPX Exploratory Laparotomy - (Added by TW Conv) OK PRTL THYROID LOBECTOMY UN I W/WO ISTHMUSECTOMY Thyroid Surgery Sub-Total Thyroidectomy - (Added by TW Conv) OK HEMORRHOIDECTOMY INTERNAL RUBBER BAND LIGATIONS Hemorrhoidectomy - (Added by TW Conv) EXTRACORPOREAL SHOCK WAVE LITHOTRIPSY Lithotripsy - (Added by TW Conv) OK REPAIR RECTOCELE SEPARATE PROCEDURE Rectocele Repair - [...] on file Legal Sex Female 2:27 AM BOTTLING SUPERVISOR Gender Identity Not on file Sexual Orientation Not on file Obstetrics History Last Filed Vital Signs Vital Sign Reading Time Taken Comments Blood Pressure 107/66 07/22/2024 11:38 AM BOTTLING SUPERVISOR Pulse 82 07/22/2024 12:05 PM BOTTLING SUPERVISOR Temperature 36.6 C (97.9 F) 07/22/2024 11:38 AM BOTTLING SUPERVISOR Respiratory Rate 18 07/22/2024 11:3 8 AM BOTTLING SUPERVISOR Oxygen Saturation 97% 07/22/2024 12: 05 PM BOTTLING SUPERVISOR Inhaled Oxygen Concentration - - Weight 107.8 kg (237 lb 11.2 oz) 2024 11:38 AM BOTTLING SUPERVISOR Height 165.1 cm (5' 5) 07/22/2024 11:3 8 AM BOTTLING SUPERVISOR Body Mass Index 39.56 07/22/2024 11:38 AM BOTTLING SUPERVISOR Plan of Treatment Health Maintenance Due Date [...] 04/13/2018, 05/12/2017, Additional history exists Insurance [facility] Member Subscriber Plan / Payer (Ef fective 2022-Present) Name:Alex Mays Relation to Subscriber:Self Name:Alex Mays Payer ID:[id number] Group ID:Not on file Type:[employer] Address: [facility] [id number] [place] [phone] [place] [address] [facility]ARE [facility] Member Subscriber Plan / Payer ( fective 2022-Present) Name:Alex Mays Luis Fernando Relation to Subscriber:Self Name:Alex Mays Luis Fernando Payer ID:[id number] Group ID:Not on file Type:[employer] Wins Address: [facility] [address] [place] [address] Care Teams Curing Machine Operator Relationship Specialty [place] [address] [address] [address] PCP - General Family Medicine 12/01/23 Trung Miles MD [address] [facility] [address] [place] [address] Surgeon Vascular Surgery 11/07/22
--- OUTSIDE RECORDS SUMMARY | 2025-02-14 16:31 | XMS_ITS | Encounter Summary ---
Author Organization [facility] Address [address] [place] [address] Care Team Providers Care Laser Engineer Name Role Phone Jordan Castro MD Unavailable [phone] Soila Neumann MD Primary Care Provider [phone] Akhil Vergara DO Unavailable Encounter Details Date Type Department Care Team (Late st Contact Info) Description 08/14/2023 Walm[employer] Message Enc [facility] Medical Group Family & Internal Medicine [facility] [address] [place] [address] Soila Neumann MD [address] [place] [address]. [address] [place] [address] Endoscopy referral Social History Tobacco [...] Sex Assigned at Female 06/28/2021 1:39 PM POCKETED SPRING ASSEMBLER Legal Sex Female 3:51 PM POCKETED SPRING ASSEMBLER Gender Identity Female 06/28/2021 1:39 PM POCKETED SPRING ASSEMBLER Sexual Orientation Straight 06/28/2021 1: 39 PM POCKETED SPRING ASSEMBLER Occupation Industry Job Start Date Job End Date RETIRED Not on file Not on file Not on file documented as of this encounter Plan of Treatment Upcoming Encounters Date Type Department Care Team (Latest Contact Info) Description 02/21/2025 9:00 AM CDT Hospital Encounter [facility] Interventional [place] [address] [id number] Carolyn Fernando MD Three [facility] [address] [place] [address] 02/21/2025 9:00 AM CDT - 02/21/2025 9:20 AM CDT Surgery [facility] Interventional [place] [address] [phone] Carolyn Fernando MD Three [facility] [address] [place] [address] BLOCK SACROILIAC JOINT 05/05/2025 1:00 PM POCKETED SPRING ASSEMBLER Office Visit [facility] [address] [phone] [place] [address] [address] [place] [phone] 08/15/2025 2:20 PM POCKETED SPRING ASSEMBLER Office Visit [facility] Medicine [address] [address] [place] [address] [address] [place] [address] Scheduled Procedures Name Priority Associated Diagnoses Date/Ti me BLOCK SACROILIAC JOINT SI joint arthritis 02/21/2025 9:00 AM CDT documented as of this encounter Visit Diagnoses Not on filedocumented in this encounter Additional Health Concerns Assessment Noted Time PHQ-9 Depression Total Score: 2 08/03/19 23 2:16 PM POCKETED SPRING ASSEMBLER documented as of this encounter Care Teams Laser Engineer Relationship Specialty [place] [address] [facility] [place] [address] PCP - General FAMILY PRACTICE 08/11/22 Jordan Castro MD [address] [place] [address] Surgeon ORTHOPAEDIC SURGERY 01/13/20 Akhil Vergara DO [address] [place] [address] INTERNAL MEDICINE 01/02/25 documented as of this encounter
--- OUTSIDE RECORDS SUMMARY | 2025-02-14 16:31 | XMS_ITS | Encounter Summary ---
Author Organization [facility] Address [address] [place] [address] Care Team Providers Care Engineering Operator Name Role Phone Vanessa Ogden MD Primary Care Provider [phone] Jordan Castro MD Unavailable [phone] Soila Neumann MD Primary Care Provider [phone] Akhil Vergara DO Unavailable Encounter Details Date Type Department Care Team (Late st Contact Info) Description 03/25/2019 [employer] Message Enc [facility] Medical Group Family & Internal Medicine [facility] [phone] [place] [address] [place] Ogden [place] [address] [place] [address] RE: Follow Up/Update Social History Tobacco Use Types Packs/Day Years Used Date Smoking Tobacco: Never Smokeless Tobacco: Never Alcohol Use Standard Drinks/Week Comments Yes 0 (1 standard drink = 0.6 oz pur e alcohol) Rare use PHQ-2 Answer Date Recorded PHQ-2 Score 0 09/28/2018 Comments No Sex and Gender Information Value Date Recorded Sex Assigned at Female 06/28/2021 1:39 PM EMERY WHEEL MOLDER Legal Sex Female 3:51 PM EMERY WHEEL MOLDER Gender Identity Female 06/28/2021 1:39 PM EMERY WHEEL MOLDER Sexual Orientation Straight 06/28/2021 1: 39 PM EMERY WHEEL MOLDER documented as of this encounter Plan of Treatment Upcoming Encounters Date Type Department Care Team (Latest Contact Info) Description 02/21/2025 9:00 AM CDT Hospital Encounter [facility] Interventional [place] [address] [id number] Carolyn Fernando MD Three [facility] [address] [place] [address] 02/21/2025 9:00 AM CDT - 02/21/2025 9:20 AM CDT Surgery [facility] Interventional [place] [address] [id number] Caroyln Fernando MD Three [facility] [address] [place] [address] BLOCK SACROILIAC JOINT 05/05/2025 1:00 PM EMERY WHEEL MOLDER Office Visit [facility] [address] [phone] [place] [address] [facility] [address] [place] [address] 08/15/2025 2:20 PM EMERY WHEEL MOLDER Office Visit [facility] Family & Internal [address] [phone] [place] [address] [facility] [address] [place] [address] Scheduled Procedures Name Priority Associated Diagnoses Date/Ti me BLOCK SACROILIAC JOINT SI joint arthritis 02/21/2025 9:00 AM CDT documented as of this encounter Visit Diagnoses Not on filedocumented in this encounter Additional Health Concerns Infection Onset Date Last Indicated Resolved Time COVID-19 Rule Out 09/08/2021 09/08/2021 09/08/2021 10:37 AM EMERY WHEEL MOLDER documented as of this encounter Care Teams Engineering Operator Relationship Specialty Start Date End Date Vanessa Ogden MD PCP - General INTERNAL MEDICINE 08/14/18 08/10/22 [place] [address] [facility]. [address] [place] [address] PCP - General FAMILY PRACTICE 08/11/22 Jordan Castro MD [address] [place] [address] Surgeon ORTHOPAEDIC SURGERY 01/13/20 Akhil Vergara DO [address] [place], [place] [id number] INTERNAL MEDICINE 01/02/25 documented as of this encounter
--- OUTSIDE RECORDS SUMMARY | 2025-02-14 16:31 | XMS_ITS | Encounter Summary ---
Author Organization [facility] Address [address] [place] [address] Care Team Providers Care Water Engineer Name Role Phone Vanessa Ogden MD Primary Care Provider [phone] Jordan Castro MD Unavailable [phone] Soila Neumann MD Primary Care Provider [phone] Akhil Vergara DO Unavailable Encounter Details Date Type Department Care Team (Late st Contact Info) Description 12/30/2021 [employer] Message Enc [facility] Medical Group Family & Internal Medicine [facility] [address] [place] [address] [place] [address] [place] [address] prior ankle msg Social History [...] Sex Assigned at Female 06/28/2021 1:39 PM BETTING CLERKS Legal Sex Female 3:51 PM BETTING CLERKS Gender Identity Female 06/28/2021 1:39 PM BETTING CLERKS Sexual Orientation Straight 06/28/2021 1: 39 PM BETTING CLERKS Occupation Industry Job Start Date Job End [...] Description 02/21/2025 9:00 AM CDT Hospital Encounter [facility] [place] [address] [id number] Carolyn Fernando MD [facility] [address] [place] [address] 02/21/2025 9:00 AM CDT - 02/21/2025 9:20 AM CDT Surgery [facility] [place]ventional [place] [address] [id number] Carolyn Fernando MD [facility] [address] [place] [address] BLOCK SACROILIAC JOINT 05/05/2025 1:00 PM BETTING CLERKS Office Visit [facility] Family & Internal Medicine [address] [phone] Soila Neumann MD [address] [place] [address] 08/15/2025 2:20 PM BETTING CLERKS Office Visit [facility] Family & Internal Medicine [address] [phone] [place] [address] [facility] [place] [address] Scheduled Procedures Name Priority Associated Diagnoses Date/Ti me BLOCK SACROILIAC JOINT SI joint arthritis 02/21/2025 9:00 AM CDT documented as of this encounter Visit Diagnoses Not on filedocumented in this encounter Additional Health Concerns Assessment Noted Time PHQ-9 Depression Total Score: 3 09/09/19 22 9:29 AM BETTING CLERKS documented as of this encounter Care Teams Water Engineer Relationship Specialty Start Date End Date Vanessa Ogden MD PCP - General INTERNAL MEDICINE 08/14/18 08/10/22 [place] [address] [facility] [place] [address] PCP - General FAMILY PRACTICE 08/11/22 Jordan Castro MD [address] [facility] [address] [place] [address] Surgeon ORTHOPAEDIC SURGERY 01/13/20 Akhil Vergara DO [address] [place] [address] INTERNAL MEDICINE 01/02/25 documented as of this encounter
--- OUTSIDE RECORDS SUMMARY | 2025-02-14 16:32 | XMS_ITS | Encounter Summary ---
Author Organization [facility] Address [address] [place] [address] Care Team Providers Care Housekeeping Supervisor Name Role Phone Jordan Castro MD Unavailable [phone] Soila Neumann MD Primary Care Provider [phone] Akhil Vergara DO Unavailable Encounter Details Date Type Department Care Team (Late st Contact Info) Description 12/06/2024 Smartesting Message Enc [facility] Interventional Pain Management [place], [place] [phone] [id number] Carolyn Fernando MD Three [facility] [address] [place] [address] SSI Joint Injection x 2 [...] Sex Assigned at Female 06/28/2021 1:39 PM LEGAL COLLECTOR Legal Sex Female 3:51 PM LEGAL COLLECTOR Gender Identity Female 06/28/2021 1:39 PM LEGAL COLLECTOR Sexual Orientation Straight 06/28/2021 1: 39 PM LEGAL COLLECTOR Occupation Industry Job Start Date Job End Date RETIRED Not on file Not on file Not on file documented as of this encounter Plan of Treatment Upcoming Encounters Date Type Department Care Team (Latest Contact Info) Description 02/21/2025 9:00 AM CDT Hospital Encounter [facility] Interventional [place] [address] [id number] Carolyn Fernando MD Three [facility] [address] [place] [address] 02/21/2025 9:00 AM CDT - 02/21/2025 9:20 AM CDT Surgery [facility] Interventional Pain [place] [address] [id number] Carolyn Fernando MD Three [facility] [address] [place] [address] BLOCK SACROILIAC JOINT 05/05/2025 1:00 PM LEGAL COLLECTOR Office Visit [facility] Family & Internal [address] [address] [place] [address] [place] [id number] 08/15/2025 2:20 PM LEGAL COLLECTOR Office Visit [facility] Family & Internal [address] [phone] [place] [address] [facility] [place] [address] [phone] Scheduled Procedures Name Priority Associated Diagnoses Date/Ti me BLOCK SACROILIAC JOINT SI joint arthritis 02/21/2025 9:00 AM CDT documented as of this encounter Visit Diagnoses Not on filedocumented in this encounter Additional Health Concerns Assessment Noted Time PHQ-9 Depression Total Score: 2 12/06/19 25 1:06 PM CDT documented as of this encounter Care Teams Housekeeping Supervisor Relationship Specialty [place] [address] [address] [place] [address] PCP - General FAMILY PRACTICE 08/11/22 Jordan Castro MD [address] [facility] [address] [place] [address] Surgeon ORTHOPAEDIC SURGERY 01/13/20 Akhil Vergara DO [address] [place] [address] INTERNAL MEDICINE 01/02/25 documented as of this encounter
--- OUTSIDE RECORDS SUMMARY | 2025-02-14 16:32 | XMS_ITS | Encounter Summary ---
Author Organization [facility] Address [address] [place] [address] Care Team Providers Care Staffing Director Name Role Phone Vanessa Ogden MD Primary Care Provider [phone] Jordan Castro MD Unavailable [phone] Soila Neumann MD Primary Care Provider [phone] Akhil Vergara DO Unavailable Encounter Details Date Type Department Care Team (Late st Contact Info) Description 11/13/2020 virocytt Message Enc [facility] Medical Group Family & Internal Medicine [facility] [address] [place] [address] [place] [phone] [place] [address] Referral Request Social History Tobacco Use [...] Sex Assigned at Female 06/28/2021 1:39 PM SALVAGE INSPECTOR WOOD PARTS Legal Sex Female 3:51 PM SALVAGE INSPECTOR WOOD PARTS Gender Identity Female 06/28/2021 1:39 PM SALVAGE INSPECTOR WOOD PARTS Sexual Orientation Straight 06/28/2021 1: 39 PM SALVAGE INSPECTOR WOOD PARTS COVID-19 Exposure Response Date Recorded In the [...] [facility] Interventional [place] [address] [phone] Carolyn Fernando MD Three [address] [address] 02/21/2025 9:00 AM CDT - 02/21/2025 9:20 AM CDT Surgery [facility] [place] [address] [id number] Carolyn Fernando MD Three [address] [address] BLOCK SACROILIAC JOINT 05/05/2025 1:00 PM SALVAGE INSPECTOR WOOD PARTS Office Visit [facility] Family & Internal Medicine [facility] [address] [place] [phone] [place] [address] [place] [address] 08/15/2025 2:20 PM SALVAGE INSPECTOR WOOD PARTS Office Visit [facility] Family & Internal Medicine [facility] [address] [place] [address] [place] [address] [address] [place] [address] Scheduled Procedures Name Priority Associated Diagnoses Date/Ti me BLOCK SACROILIAC JOINT SI joint arthritis 02/21/2025 9:00 AM CDT documented as of this encounter Visit Diagnoses Not on filedocumented in this encounter Additional Health Concerns Infection Onset Date Last Indicated Resolved Time COVID-19 Rule Out 09/08/2021 09/08/2021 09/08/2021 10:37 AM SALVAGE INSPECTOR WOOD PARTS documented as of this encounter Care Teams Staffing Director Relationship Specialty Start Date End Date Vanessa Ogden MD PCP - General INTERNAL MEDICINE 08/14/18 08/10/22 [place] [address] [address] [place] [address] PCP - General FAMILY PRACTICE 08/11/22 Jordan Castro MD [address] [place] [address] Surgeon ORTHOPAEDIC SURGERY 01/13/20 Akhil Vergara DO [address] [place], [place] [id number] INTERNAL MEDICINE 01/02/25 documented as of this encounter
--- OUTSIDE RECORDS SUMMARY | 2025-02-14 16:32 | XMS_ITS | Encounter Summary ---
Author Organization [facility] Address [address] [place] [address] Care Team Providers Care Business Control Manager Name Role Phone Vanessa Ogden MD Primary Care Provider [phone] Jordan Castro MD Unavailable [phone] Soila Neumann MD Primary Care Provider [phone] Akhil Vergara DO Unavailable Encounter Details Date Type Department Care Team (Late st Contact Info) Description 11/26/2020 [employer]imot Message Enc [facility] Medical Group Family & Internal Medicine [facility] [address] [place] [address] [place] [address] [place] [address] Follow Up/Update Social History Tobacco [...] Sex Assigned at Female 06/28/2021 1:39 PM VICE PRESIDENT OF HUMAN RESOURCES Legal Sex Female 3:51 PM VICE PRESIDENT OF HUMAN RESOURCES Gender Identity Female 06/28/2021 1:39 PM VICE PRESIDENT OF HUMAN RESOURCES Sexual Orientation Straight 06/28/2021 1: 39 PM VICE PRESIDENT OF HUMAN RESOURCES COVID-19 Exposure Response Date Recorded In the last month, have you been in contact with someone who was confirmed or suspected to have Coronavirus / COVID-19? No / Unsure 11/20/2020 10:10 AM CDT documented as of this encounter Plan of Treatment Upcoming Encounters Date Type Department Care Team (Latest Contact Info) Description 02/21/2025 9:00 AM CDT Hospital Encounter [facility] Interventional [place] [address] [phone] Carolyn Fernando MD Three [facility] [address] [place] [address] 02/21/2025 9:00 AM CDT - 02/21/2025 9:20 AM CDT Surgery [facility] [place]ventional [place] [address] [id number] Carolyn Fernando MD Three [facility] [address] [place] [address] BLOCK SACROILIAC JOINT 05/05/2025 1:00 PM VICE PRESIDENT OF HUMAN RESOURCES Office Visit [facility] Family & Internal Medicine [address] [phone] Soila Neumann MD [address] [place] [address] [phone] 08/15/2025 2:20 PM VICE PRESIDENT OF HUMAN RESOURCES Office Visit [facility] Family & Internal Medicine [address] [phone] [place] [address] [address] [place] [address] Scheduled Procedures Name Priority Associated Diagnoses Date/Ti me BLOCK SACROILIAC JOINT SI joint arthritis 02/21/2025 9:00 AM CDT documented as of this encounter Visit Diagnoses Not on filedocumented in this encounter Additional Health Concerns Infection Onset Date Last Indicated Resolved Time COVID-19 Rule Out 09/08/2021 09/08/2021 09/08/2021 10:37 AM VICE PRESIDENT OF HUMAN RESOURCES documented as of this encounter Care Teams Business Control Manager Relationship Specialty Start Date End Date Vanessa Ogden MD PCP - General INTERNAL MEDICINE 08/14/18 08/10/22 [place] [address] [address] [place] [address] PCP - General FAMILY PRACTICE 08/11/22 Jordan Castro MD [address] [place], [place] [id number] Surgeon ORTHOPAEDIC SURGERY 01/13/20 Akhil Vergara DO [address] [place] [address] INTERNAL MEDICINE 01/02/25 documented as of this encounter
--- OUTSIDE RECORDS SUMMARY | 2025-02-14 16:32 | XMS_ITS | Encounter Summary ---
Author Organization [facility] Address [address] [place] [address] Care Team Providers Care Product Support Consultant Name Role Phone Vanessa Ogden MD Primary Care Provider [phone] Jordan Castro MD Unavailable [phone] Soila Neumann MD Primary Care Provider [phone] Akhil Vergara DO Unavailable Encounter Details Date Type Department Care Team (Late st Contact Info) Description 02/17/2021 miacosat Message Enc [facility] Medical Group Family & Internal Medicine [facility] [address] [place] [address] [place] [address] [place] [address] Question Social History Tobacco Use [...] Sex Assigned at Female 06/28/2021 1:39 PM FOOD AND DRUG RESEARCH SCIENTIST Legal Sex Female 3:51 PM FOOD AND DRUG RESEARCH SCIENTIST Gender Identity Female 06/28/2021 1:39 PM FOOD AND DRUG RESEARCH SCIENTIST Sexual Orientation Straight 06/28/2021 1: 39 PM FOOD AND DRUG RESEARCH SCIENTIST COVID-19 Exposure Response Date Recorded In the last month, have you been in contact with someone who was confirmed or suspected to have Coronavirus / COVID-19? No / Unsure 02/03/2021 1:16 PM CDT documented as of this encounter Plan of Treatment Upcoming Encounters Date Type Department Care Team (Latest Contact Info) Description 02/21/2025 9:00 AM CDT Hospital Encounter [facility] Interventional Pain [place] [address] [id number] Carolyn Fernando MD Three [facility] [address] [place] [address] 02/21/2025 9:00 AM CDT - 02/21/2025 9:20 AM CDT Surgery [facility] Interventional Pain [place] [address] [id number] Carolyn Fernando MD Three [facility] [address] [place] [address] BLOCK SACROILIAC JOINT 05/05/2025 1:00 PM FOOD AND DRUG RESEARCH SCIENTIST Office Visit [facility] Family & Internal Medicine [address] [phone] [place] [address] [facility] [address] [place] [address] [phone] 08/15/2025 2:20 PM FOOD AND DRUG RESEARCH SCIENTIST Office Visit [facility] Family & Internal Medicine [address] [phone] [place] [address] [address] [place] [address] Scheduled Procedures Name Priority Associated Diagnoses Date/Ti me BLOCK SACROILIAC JOINT SI joint arthritis 02/21/2025 9:00 AM CDT documented as of this encounter Visit Diagnoses Not on filedocumented in this encounter Additional Health Concerns Infection Onset Date Last Indicated Resolved Time COVID-19 Rule Out 09/08/2021 09/08/2021 09/08/2021 10:37 AM FOOD AND DRUG RESEARCH SCIENTIST documented as of this encounter Care Teams Product Support Consultant Relationship Specialty Start Date End Date Vanessa Ogden MD PCP - General INTERNAL MEDICINE 08/14/18 08/10/22 [place] [address] [address] [place] [address] PCP - General FAMILY PRACTICE 08/11/22 Jordan Castro MD [address] [place] [address] Surgeon ORTHOPAEDIC SURGERY 01/13/20 Akhil Vergara DO [address] [place] [address] INTERNAL MEDICINE 01/02/25 documented as of this encounter
--- OUTSIDE RECORDS SUMMARY | 2025-02-14 16:32 | XMS_ITS | Encounter Summary ---
Author Organization [facility] Address [address] [place] [address] Care Team Providers Care Transformer Stock Clerk Name Role Phone Jordan Castro MD Unavailable [phone] Soila Neumann MD Primary Care Provider [phone] Akhil Vergara DO Unavailable Encounter Details Date Type Department Care Team (Latest Contact Info) Description 02/11/2025 Results Follow-Up [facility] Family & Internal Medicine [address] [address] Soila Neumann MD [address] [place] [address]. [address] [place] [address] CBC W/DIFF AUTOMATED, COMPREHENSIVE METABOLIC PANEL, LIPID [...] Sex Assigned at Female 06/28/2021 1:39 PM BAT CARRIER Legal Sex Female 3:51 PM BAT CARRIER Gender Identity Female 06/28/2021 1:39 PM BAT CARRIER Sexual Orientation Straight 06/28/2021 1: 39 PM BAT CARRIER Occupation Industry Job Start Date Job End [...] [facility] Interventional [place] [address] [id number] Carolyn Fernando MD Three [facility] [address] [place] [address] 02/21/2025 9:00 AM CDT - 02/21/2025 9:20 AM CDT Surgery [facility] [place] [address] [id number] Carolyn Fernando MD Three [facility] [address] [place] [address] BLOCK SACROILIAC JOINT 05/05/2025 1:00 PM BAT CARRIER Office Visit [facility] Family & Internal Medicine - [address] [phone] Soila Neumann MD [address] [place] [address]. [address] [place] [phone] 08/15/2025 2:20 PM BAT CARRIER Office Visit [facility] Family & Internal Medicine - [place] [address] [place] [address] [place] [address] [facility]. [address] [place] [address] Scheduled Orders Name Type Priority Associated Diagnoses [...] documented as of this encounter Care Teams Transformer Stock Clerk Relationship Specialty [place] [address] [facility] [place] [address] PCP - General FAMILY PRACTICE 08/11/22 Jordan Castro MD [address] [place] [address] Surgeon ORTHOPAEDIC SURGERY 01/13/20 Akhil Vergara DO [address] [place] [address] INTERNAL MEDICINE 01/02/25 documented as of this encounter
--- OUTSIDE RECORDS SUMMARY | 2025-02-14 16:32 | XMS_ITS | Encounter Summary ---
Author Organization [facility] Address [address] [place] [address] Care Team Providers Care Senior Integration Architect Name Role Phone Jordan Castro MD Unavailable [phone] Soila Neumann MD Primary Care Provider [phone] Akhil Vergara DO Unavailable Encounter Details Date Type Department Care Team (Late st Contact Info) Description 12/06/2024 Acacia Interactivet Message Enc [facility] Orthopedic Surgery-Daniel [address] [place] [address] [place] [address] [place] [address] questions I should have asked [...] Sex Assigned at Female 06/28/2021 1:39 PM FIRE REGULATOR Legal Sex Female 3:51 PM FIRE REGULATOR Gender Identity Female 06/28/2021 1:39 PM FIRE REGULATOR Sexual Orientation Straight 06/28/2021 1: 39 PM FIRE REGULATOR Occupation Industry Job Start Date Job End Date RETIRED Not on file Not on file Not on file documented as of this encounter Plan of Treatment Upcoming Encounters Date Type Department Care Team (Latest Contact Info) Description 02/21/2025 9:00 AM CDT Hospital Encounter [facility] Interventional [place] [address] [id number] Carolyn Fernando MD Three [facility] [address] [place] [address] 02/21/2025 9:00 AM CDT - 02/21/2025 9:20 AM CDT Surgery [facility] Interventional [place] [address] [id number] Carolyn Fernando MD Three [facility] [address] [place] [address] BLOCK SACROILIAC JOINT 05/05/2025 1:00 PM FIRE REGULATOR Office Visit [facility] Family & Internal Medicine [address] [phone] [place] [address] [employer]. [address] [place] [address] [id number] 08/15/2025 2:20 PM FIRE REGULATOR Office Visit [facility] Family & Internal Medicine [address] [address] [place] [address] [facility] [address] [place] [address] [phone] Scheduled Procedures Name Priority Associated Diagnoses Date/Ti me BLOCK SACROILIAC JOINT SI joint arthritis 02/21/2025 9:00 AM CDT documented as of this encounter Visit Diagnoses Not on filedocumented in this encounter Additional Health Concerns Assessment Noted Time PHQ-9 Depression Total Score: 2 12/06/19 25 1:06 PM CDT documented as of this encounter Care Teams Senior Integration Architect Relationship Specialty [place] [address] [facility]. [address] [place] [address] PCP - General FAMILY PRACTICE 08/11/22 Jordan Castro MD [address] [place], [place] [phone] Surgeon ORTHOPAEDIC SURGERY 01/13/20 Akhil Vergara DO [address] [place] [address] INTERNAL MEDICINE 01/02/25 documented as of this encounter
--- OUTSIDE RECORDS SUMMARY | 2025-02-14 16:32 | XMS_ITS | Encounter Summary ---
Author Organization [facility] Address [address] [place] [address] Care Team Providers Care School Health Aide Name Role Phone Jordan Castro MD Unavailable [phone] Soila Neumann MD Primary Care Provider [phone] Akhil Vergara DO Unavailable Encounter Details Date Type Department Care Team (Latest Contact Info) Description 02/13/2024 Mohive Message Enc [facility] Multispecialty Care - [address], [address] [place] [address] Danette, [facility] Provider Recap on Phonecall Social History [...] Sex Assigned at Female 06/28/2021 1:39 PM MEAT PRODUCTS DEMONSTRATOR Legal Sex Female 3:51 PM MEAT PRODUCTS DEMONSTRATOR Gender Identity Female 06/28/2021 1:39 PM MEAT PRODUCTS DEMONSTRATOR Sexual Orientation Straight 06/28/2021 1: 39 PM MEAT PRODUCTS DEMONSTRATOR Occupation Industry Job Start Date Job End Date RETIRED Not on file Not on file Not on file documented as of this encounter Plan of Treatment Upcoming Encounters Date Type Department Care Team (Latest Contact Info) Description 02/21/2025 9:00 AM CDT Hospital Encounter [facility] Interventional [place] [address] [id number] Carolyn Fernando MD Three [facility] [address] [place] [address] 02/21/2025 9:00 AM CDT - 02/21/2025 9:20 AM CDT Surgery [facility] Interventional Pain [place] [address] [id number] Carolyn Fernando MD Three [facility] [address] [place] [address] BLOCK SACROILIAC JOINT 05/05/2025 1:00 PM MEAT PRODUCTS DEMONSTRATOR Office Visit [facility] Medical [facility] Family & Internal Medicine [address] [phone] [place] [address] [facility] [address] [place] [address] 08/15/2025 2:20 PM MEAT PRODUCTS DEMONSTRATOR Office Visit [facility] Family & Internal Medicine [address] [phone] [place] [address] [facility] [employer]. [address] [place] [address] Scheduled Procedures Name Priority Associated Diagnoses Date/Ti me BLOCK SACROILIAC JOINT SI joint arthritis 02/21/2025 9:00 AM CDT documented as of this encounter Visit Diagnoses Not on filedocumented in this encounter Additional Health Concerns Assessment Noted Time PHQ-9 Depression Total Score: 2 08/03/19 23 2:16 PM MEAT PRODUCTS DEMONSTRATOR documented as of this encounter Care Teams School Health Aide Relationship Specialty [place] [address] [address] [place] [address] PCP - General FAMILY PRACTICE 08/11/22 Jordan Castro MD [address] [facility] [address] [place] [address] Surgeon ORTHOPAEDIC SURGERY 01/13/20 Akhil Vergara DO [address] [place] [address] INTERNAL MEDICINE 01/02/25 documented as of this encounter
--- OUTSIDE RECORDS SUMMARY | 2025-02-14 16:32 | XMS_ITS | Encounter Summary ---
Author Organization [facility] Address [address] [place] [address] Care Team Providers Care Sustainability Executive Director Name Role Phone Vanessa Ogden MD Primary Care Provider [phone] Jordan Castro MD Unavailable [phone] Soila Neumann MD Primary Care Provider [phone] Akhil Vergara DO Unavailable Encounter Details Date Type Department Care Team (Late st Contact Info) Description 06/19/2020 YieldBuild Message Enc [facility] Family & Internal Medicine [facility] [address] [place] [address] [place] [id number] [place] [address] RE: Follow Up/Update Social History Tobacco Use Types Packs/Day Years Used Date Smoking Tobacco: Never Smokeless Tobacco: Never Alcohol Use Standard Drinks/Week Comments Yes 0 (1 standard drink = 0.6 oz pur e alcohol) Rare use PHQ-2 Answer Date Recorded PHQ-2 Score 0 09/28/2018 Comments No Sex and Gender Information Value Date Recorded Sex Assigned at Female 06/28/2021 1:39 PM FOREST NURSERY WORKER Legal Sex Female 3:51 PM FOREST NURSERY WORKER Gender Identity Female 06/28/2021 1:39 PM FOREST NURSERY WORKER Sexual Orientation Straight 06/28/2021 1: 39 PM FOREST NURSERY WORKER COVID-19 Exposure Response Date Recorded In the last month, have you been in contact with someone who was confirmed or suspected to have Coronavirus / COVID-19? No / Unsure 05/25/2020 3:08 PM FOREST NURSERY WORKER documented as of this encounter Plan of Treatment Upcoming Encounters Date Type Department Care Team (Latest Contact Info) Description 02/21/2025 9:00 AM CDT Hospital Encounter [facility] Interventional Pain [place] [address] [id number] Carolyn Fernando MD Three [facility] [address] [place] [address] 02/21/2025 9:00 AM CDT - 02/21/2025 9:20 AM CDT Surgery [facility] Interventional Pain [place] [address] [id number] Carolyn Fernando MD Three [facility] [address] [place] [address] BLOCK SACROILIAC JOINT 05/05/2025 1:00 PM FOREST NURSERY WORKER Office Visit [facility] Family & Internal Medicine [address] [address] [place] [address] [facility]. [address] [place] [address] 08/15/2025 2:20 PM FOREST NURSERY WORKER Office Visit [facility] Family & Internal Medicine [address] [phone] [place] [address] [facility]. [address] [place] [address] [phone] Scheduled Procedures Name Priority Associated Diagnoses Date/Ti me BLOCK SACROILIAC JOINT SI joint arthritis 02/21/2025 9:00 AM CDT documented as of this encounter Visit Diagnoses Not on filedocumented in this encounter Additional Health Concerns Infection Onset Date Last Indicated Resolved Time COVID-19 Rule Out 09/08/2021 09/08/2021 09/08/2021 10:37 AM FOREST NURSERY WORKER documented as of this encounter Care Teams Sustainability Executive Director Relationship Specialty Start Date End Date Vanessa Ogden MD PCP - General INTERNAL MEDICINE 08/14/18 08/10/22 [place] [address] [facility]. [address] [place] [address] PCP - General FAMILY PRACTICE 08/11/22 Jordan Castro MD [address] [facility] [facility] [address] [place], [place] [phone] Surgeon ORTHOPAEDIC SURGERY 01/13/20 Akhil Vergara DO [address] [place] [address] INTERNAL MEDICINE 01/02/25 documented as of this encounter
--- OUTSIDE RECORDS SUMMARY | 2025-02-14 16:32 | XMS_ITS | Encounter Summary ---
Author Organization [facility] Address [address] [place] [address] Care Team Providers Care Distribution A Class Lineman Name Role Phone Jordan Castro MD Unavailable [phone] Soila Neumann MD Primary Care Provider [phone] Akhil Vergara DO Unavailable Encounter Details Date Type Department Care Team (Late st Contact Info) Description 02/12/2024 Yi Chang Ou Sai ITt Message Enc [facility] Multispecialty Care - [facility] [address] [facility], [address] [place] [address] Dinesh Cruz DO [address] [facility] [address] [place] [address] Recent EDG biopsy Social History Tobacco Use [...] Sex Assigned at Female 06/28/2021 1:39 PM MEMBERSHIP SALES REPRESENTATIVE Legal Sex Female 3:51 PM MEMBERSHIP SALES REPRESENTATIVE Gender Identity Female 06/28/2021 1:39 PM MEMBERSHIP SALES REPRESENTATIVE Sexual Orientation Straight 06/28/2021 1: 39 PM MEMBERSHIP SALES REPRESENTATIVE Occupation Industry Job Start Date Job End Date RETIRED Not on file Not on file Not on file documented as of this encounter Plan of Treatment Upcoming Encounters Date Type Department Care Team (Latest Contact Info) Description 02/21/2025 9:00 AM CDT Hospital Encounter [facility] Interventional Pain [place] [address] [id number] Carolyn Fernando MD Three [facility] [address] [place] [address] 02/21/2025 9:00 AM CDT - 02/21/2025 9:20 AM CDT Surgery [facility] Interventional Pain [place] [address] [id number] Carolyn Fernando MD Three [facility] [address] [place] [address] BLOCK SACROILIAC JOINT 05/05/2025 1:00 PM MEMBERSHIP SALES REPRESENTATIVE Office Visit [facility] Family & Internal [address] [phone] [place] [address] [place] [address] [phone] 08/15/2025 2:20 PM MEMBERSHIP SALES REPRESENTATIVE Office Visit [facility] Family & Internal [address] [phone] [place] [address] [place] [address] [phone] Scheduled Procedures Name Priority Associated Diagnoses Date/Ti me BLOCK SACROILIAC JOINT SI joint arthritis 02/21/2025 9:00 AM CDT documented as of this encounter Visit Diagnoses Not on filedocumented in this encounter Additional Health Concerns Assessment Noted Time PHQ-9 Depression Total Score: 2 08/03/19 2:16 PM MEMBERSHIP SALES REPRESENTATIVE documented as of this encounter Care Teams Distribution A Class Lineman Relationship Specialty [place] [address] [address] [place] [address] PCP - General FAMILY PRACTICE 08/11/22 Jordan Castro MD [address] [place] [address] Surgeon ORTHOPAEDIC SURGERY 01/13/20 Akhil Vergara DO [address] [place] [address] INTERNAL MEDICINE 01/02/25 documented as of this encounter
--- OUTSIDE RECORDS SUMMARY | 2025-02-14 16:32 | XMS_ITS | Encounter Summary ---
Author Organization [facility] Address [address] [place] [address] Care Team Providers Care Gasser Machine Operator Name Role Phone Vanessa Ogden MD Primary Care Provider [phone] Jordan Castro MD Unavailable [phone] Soila Neumann MD Primary Care Provider [phone] Akhil Vergara DO Unavailable Encounter Details Date Type Department Care Team (Late st Contact Info) Description 06/21/2021 Path101t Message Enc [facility] Family & Internal Medicine [facility] [address] [place] [address] [place] [address] [place] [address] Question Social History Tobacco Use [...] Sex Assigned at Female 06/28/2021 1:39 PM ANGLEDOZER OPERATOR Legal Sex Female 3:51 PM ANGLEDOZER OPERATOR Gender Identity Female 06/28/2021 1:39 PM ANGLEDOZER OPERATOR Sexual Orientation Straight 06/28/2021 1: 39 PM ANGLEDOZER OPERATOR Occupation Industry Job Start Date Job End Date RETIRED Not on file Not on file Not on file documented as of this encounter Plan of Treatment Upcoming Encounters Date Type Department Care Team (Latest Contact Info) Description 02/21/2025 9:00 AM CDT Hospital Encounter [facility] Interventional [place] [address] [id number] Carolyn Fernando MD Three [facility] [address] [place] [address] 02/21/2025 9:00 AM CDT - 02/21/2025 9:20 AM CDT Surgery [facility] [place] [address] [id number] Carolyn Fernando MD Three [facility] [address] [place] [address] BLOCK SACROILIAC JOINT 05/05/2025 1:00 PM ANGLEDOZER OPERATOR Office Visit [facility] Family & Internal Medicine [address] [phone] [place] [address] [place] [address] 08/15/2025 2:20 PM ANGLEDOZER OPERATOR Office Visit [facility] Family & Internal Medicine [address] [phone] [place] [address] [place] [address] Scheduled Procedures Name Priority Associated Diagnoses Date/Ti me BLOCK SACROILIAC JOINT SI joint arthritis 02/21/2025 9:00 AM CDT documented as of this encounter Visit Diagnoses Not on filedocumented in this encounter Additional Health Concerns Infection Onset Date Last Indicated Resolved Time COVID-19 Rule Out 09/08/2021 09/08/2021 09/08/2021 10:37 AM ANGLEDOZER OPERATOR documented as of this encounter Care Teams Gasser Machine Operator Relationship Specialty Start Date End Date Vanessa Ogden MD PCP - General INTERNAL MEDICINE 08/14/18 08/10/22 [place] [address] [facility] [place] [address] PCP - General FAMILY PRACTICE 08/11/22 Jordan Castro MD [address] [facility] [address] [place] [address] Surgeon ORTHOPAEDIC SURGERY 01/13/20 Akhil Vergara DO [address] [place] [address] INTERNAL MEDICINE 01/02/25 documented as of this encounter
--- OUTSIDE RECORDS SUMMARY | 2025-02-14 16:32 | XMS_ITS | Encounter Summary ---
Author Organization [facility] Address [address] [place] [address] Care Team Providers Care Hot Molder Name Role Phone Jordan Castro MD Unavailable [phone] Soila Neumann MD Primary Care Provider [phone] Akhil Vergara DO Unavailable Encounter Details Date Type Department Care Team (Late st Contact Info) Description 02/13/2025 Oxagen Message Enc [facility] Medical Group Family & Internal Medicine [facility] [phone] [place] [phone] Soila Neumann MD [address] [place] [address]. [address] [place] [address] Current reading of BNP Do You [...] Assigned at Female 06/28/2021 1:39 PM FAMILY PRACTICE PHYSICIAN ASSISTANT Legal Sex Female 3:51 PM FAMILY PRACTICE PHYSICIAN ASSISTANT Gender Identity Female 06/28/2021 1:39 PM FAMILY PRACTICE PHYSICIAN ASSISTANT Sexual Orientation Straight 06/28/2021 1: 39 PM FAMILY PRACTICE PHYSICIAN ASSISTANT Occupation Industry Job Start Date Job End Date RETIRED Not on file Not on file Not on file documented as of this encounter Plan of Treatment Upcoming Encounters Date Type Department Care Team (Latest Contact Info) Description 02/21/2025 9:00 AM CDT Hospital Encounter [facility] Interventional [place] [address] [id number] Carolyn Fernando MD Three [facility] [address] [place] [address] 02/21/2025 9:00 AM CDT - 02/21/2025 9:20 AM CDT Surgery [facility] Interventional Pain [place] [address] [id number] Carolyn Fernando MD Three [facility] [address] [place] [address] BLOCK SACROILIAC JOINT 05/05/2025 1:00 PM FAMILY PRACTICE PHYSICIAN ASSISTANT Office Visit [facility] Family & Internal Medicine [address] [phone] [place] [address] [place] [address] [phone] 08/15/2025 2:20 PM FAMILY PRACTICE PHYSICIAN ASSISTANT Office Visit [facility] Family & Internal Medicine [address] [phone] [place] [address] [place] [address] [phone] Scheduled Procedures Name Priority Associated Diagnoses Date/Ti me BLOCK SACROILIAC JOINT SI joint arthritis 02/21/2025 9:00 AM CDT documented as of this encounter Visit Diagnoses Not on filedocumented in this encounter Additional Health Concerns Assessment Noted Time PHQ-9 Depression Total Score: 2 12/06/19 25 1:06 PM CDT documented as of this encounter Care Teams Hot Molder Relationship Specialty [place] [address] [address] [place] [address] PCP - General FAMILY PRACTICE 08/11/22 Jordan Castro MD [address] [place], [place] [id number] Surgeon ORTHOPAEDIC SURGERY 01/13/20 Akhil Vergara DO [address] [place] [address] INTERNAL MEDICINE 01/02/25 documented as of this encounter
--- OUTSIDE RECORDS SUMMARY | 2025-02-14 16:32 | XMS_ITS | Encounter Summary ---
Author Organization [facility] Address [address] [facility] [place] [address] Care Team Providers Care Mattress Weaver Name Role Phone Sofi Davis MD Primary Care Provider + Vanessa Ogden MD Primary Care Provider + [phone] Soila Neumann MD Primary Care Provider [phone] Encounter Details Date Type Department Care Team (Late st Contact Info) Description 05/18/2021 Lab Requisition [facility] DermPath Lab [address] [facility], [facility] [place] [address] Francisco Sims MD [address] [facility] [address] Social History Tobacco Use Types Packs/Day Years Used Date Smoking Tobacco: Former Cigarettes Smokeless Tobacco: Never Comments:quit 1977 Alcohol Use Standard Drinks/Week Comments Yes 0 (1 standard drink = 0.6 oz pur e alcohol) OCC Comments No Sex and Gender Information Value Date Recorded Sex Assigned at Female 08/31/2020 11:23 AM CRUDE OIL TREATER Legal Sex Female 6:25 PM CRUDE OIL TREATER Gender Identity Female 08/31/2020 11:23 AM CRUDE OIL TREATER Sexual Orientation Straight 08/31/2020 11 :23 AM CRUDE OIL TREATER documented as of this encounter Plan of Treatment Upcoming Encounters Date Type Department Care Team (Late st Contact Info) Description 03/14/2025 1:00 PM CDT Hospital Encounter [facility] - Rheumatology [address] [place] [address] [phone] 05/09/2025 1:00 PM CRUDE OIL TREATER Appointment [facility] - Rheumatology [address] [place] [address] 05/09/2025 1:20 PM CRUDE OIL TREATER Office Visit [facility] - Rheumatology [address] [place] [address] Kami Llanos MD [address] [place] [phone] documented as of this encounter Procedures Procedure Name Priority Date/Time Associated Diagnosis Comments DERMATOPATHOLOGY Routine 05/14/2021 12:0 0 AM CRUDE OIL TREATER documented in this encounter Results * DERMATOPATHOLOGY (05/14/2021 12:00 AM CRUDE OIL TREATER) Case Report Dermatopathology Report Case: [id number] Authorizing Provider: Francisco Sims MD Collected: 05/14/2021 12:00 AM Ordering Location: [facility] DermPath Lab Received: 05/18/2021 06:20 AM Pathologist: Edith Powell MD Specimens: A) - Skin, left shoulder B) - Skin, center back 4:44 PM CRUDE OIL TREATER DERMATOPATHOLOGY LABORATORY Final Diagnosis Specimen A. SKIN, left shoulder: COMPOUND MELANOCYTIC NEVUS (D22.62) JUNCTIONAL MELANOCYTIC NEVUS (D22.62) SOLAR LENTIGO (L81.4) (see microscopic description and comment) Specimen B. SKIN, center back: INTRADERMAL MELANOCYTIC NEVUS WITH CONGENITAL FEATURES (D22.9) 4:44 PM CRUDE OIL TREATER DERMATOPATHOLOGY LABORATORY at 1644 CRUDE OIL TREATER Clinical History A: SK vs nevus vs MM. Path# [id number] B: SK vs nevus vs MM. Path# [id number] 4:44 PM CRUDE OIL TREATER DERMATOPATHOLOGY LABORATORY Gross Description Specimen A: Received is one formalin filled container labeled with the patient's name and designated left shoulder. The specimen consists of a shave biopsy measuring [id number]. Jar 0. Specimen B: Received is one formalin filled container labeled with the patient's name and designated center back. The specimen consists of a shave biopsy measuring [id number]. Jar 0. 1 4:44 PM [facility] DERMATOPATH[facility]Y [facility]ORAT[facility] Microscopic Description Specimen A. [...] vessels and adnexal structures. 1 4:44 PM [facility] DERMATOPATHOLOGY [facility]ORATORY Disclaimer An external and internal positive and negative controls are appropriate for the histochemical, immunohistochemical and immunofluorescence stain(s) in this case (if any), except where stated explicitly. The performance characteristics of the stain(s) cited in this report were developed and its performance characteristic determined by the Dermatopathology Laboratory at [facility], directed by Dr. Jaret King. These tests need not be, and therefore are not, approved by the [place] Food and Drug Administration. The tests are used for clinical purposes. Billing Codes Specimen Charges Stain Charges 86492 27196 1 1 98261 1 1 4:44 PM [facility] Embedded Images 1 4:44 PM [facility] Pathology/Cytology TISSUE SPECIMEN FROM SKIN / Unknown 05/14/2021 05/18/2021 6:20 AM CRUDE OIL TREATER Miscellaneous samples (specimen) TISSUE SPECIMEN FROM SKIN / Unknown 05/14/2021 05/18/2021 6:20 AM CRUDE OIL TREATER us Francisco Sims MD LAB - PATHOLOGY/CYTOLOGY ORDER UMAIR Final Result DERMATOPATHOLOGY LABORATORY [facility] - Department of D[facility] [facility], 3rd Floor [address] [phone] documented in this encounter Visit Diagnoses Not on filedocumented in this encounter Care Teams Mattress Weaver Relationship Specialty Start Date End Date Sofi Davis MD [address] [place] [address] PCP - General 05/17/21 05/18/21 Vanessa Ogden MD [address] [place] [address] PCP - General Internal Medicine 05/19/21 06/13/23 [place] [address] [address] PCP - General Family Medicine 06/14/23 documented as of this encounter
--- OUTSIDE RECORDS SUMMARY | 2025-02-14 16:32 | XMS_ITS | Encounter Summary ---
Author Organization [facility] Address [address] [place] [address] Care Team Providers Care Bedspread Inspector Name Role Phone Jordan Castro MD Unavailable [phone] Soila Neumann MD Primary Care Provider [phone] Akhil Vergara DO Unavailable Encounter Details Date Type Department Care Team (Late st Contact Info) Description 02/12/2025 [place] Message Enc [facility] Family & Internal Medicine [facility] [phone] [place] [phone] Soila Neumann MD [address] [place] [address]. [address] [place] [address] CoverMyMeds Social History Tobacco Use Types [...] Sex Assigned at Female 06/28/2021 1:39 PM WIND TURBINE MECHANIC Legal Sex Female 3:51 PM WIND TURBINE MECHANIC Gender Identity Female 06/28/2021 1:39 PM WIND TURBINE MECHANIC Sexual Orientation Straight 06/28/2021 1: 39 PM WIND TURBINE MECHANIC Occupation Industry Job Start Date Job End Date RETIRED Not on file Not on file Not on file documented as of this encounter Plan of Treatment Upcoming Encounters Date Type Department Care Team (Latest Contact Info) Description 02/21/2025 9:00 AM CDT Hospital Encounter [facility] Interventional [place] [address] [id number] Carolyn Fernando MD Three [facility] [address] [place] [address] 02/21/2025 9:00 AM CDT - 02/21/2025 9:20 AM CDT Surgery [facility] Interventional Pain [place] [address] [phone] Carolyn Fernnado MD Three [facility] [address] [place] [address] BLOCK SACROILIAC JOINT 05/05/2025 1:00 PM WIND TURBINE MECHANIC Office Visit [facility] Family & Internal Medicine [address] [phone] [place] [address] [place] [address] [phone] 08/15/2025 2:20 PM WIND TURBINE MECHANIC Office Visit [facility] Family & Internal Medicine [address] [address] [place] [address] [address] [place] [address] [phone] Scheduled Procedures Name Priority Associated Diagnoses Date/Ti me BLOCK SACROILIAC JOINT SI joint arthritis 02/21/2025 9:00 AM CDT documented as of this encounter Visit Diagnoses Not on filedocumented in this encounter Additional Health Concerns Assessment Noted Time PHQ-9 Depression Total Score: 2 12/06/19 25 1:06 PM CDT documented as of this encounter Care Teams Bedspread Inspector Relationship Specialty [place] [address] [facility] [place] [address] PCP - General FAMILY PRACTICE 08/11/22 Jordan Castro MD [address] [place] [address] Surgeon ORTHOPAEDIC SURGERY 01/13/20 Akhil Vergara DO [address] [place] [address] INTERNAL MEDICINE 01/02/25 documented as of this encounter
--- OUTSIDE RECORDS SUMMARY | 2025-02-14 16:32 | XMS_ITS | Encounter Summary ---
Author Organization [facility] Address [address] [place] [address] Care Team Providers Care Senior Test Analyst Name Role Phone Vanessa Ogden MD Primary Care Provider [phone] Soila Neumann MD Primary Care Provider [phone] Reason for Visit * Reason Onset Date Comments Scheduling 09/05/2022 Left VM for resc heduling due to infusion center closing early 09/09/22 Encounter Details Date Type Department Care Team (Late st Contact Info) Description 09/05/2022 Telephone [facility] [address] [place] [address] Lisa Mayo, RN Scheduling (Left VM for [...] Sex Assigned at Female 08/31/2020 11:23 AM FARMWORKER CRANBERRY Legal Sex Female 6:25 PM FARMWORKER CRANBERRY Gender Identity Female 08/31/2020 11:23 AM FARMWORKER CRANBERRY Sexual Orientation Straight 08/31/2020 11 :23 AM FARMWORKER CRANBERRY documented as of this encounter Plan of Treatment Upcoming Encounters Date Type Department Care Team (Late st Contact Info) Description 03/14/2025 1:00 PM CDT Hospital Encounter [facility] - Rheumatology [address] [place] [address] 05/09/2025 1:00 PM FARMWORKER CRANBERRY Appointment [facility] Rheumatology [address] [place] [address] [phone] 05/09/2025 1:20 PM FARMWORKER CRANBERRY Office Visit [facility] Rheumatology [address] [place] [address] [phone] Kami Llanos MD [address] [place] [phone] documented as of this encounter Visit Diagnoses Not on filedocumented in this encounter Care Teams Senior Test Analyst Relationship Specialty Start Date End Date Vanessa Ogden MD PCP - General Internal Medicine 05/19/21 06/13/23 [place] [address] [address] PCP - General Family Medicine 06/14/23 documented as of this encounter
--- OUTSIDE RECORDS SUMMARY | 2025-02-14 16:32 | XMS_ITS | Encounter Summary ---
Author Organization [facility] Address [address] [place] [address] Care Team Providers Care Assistant News Director Name Role Phone Vanessa Ogden MD Primary Care Provider Jordan Castro MD Unavailable [phone] Soila Neumann MD Primary Care Provider [phone] Akhil Vergara DO Unavailable Encounter Details Date Type Department Care Team (Late st Contact Info) Description 05/03/2021 [place] Message Enc [facility] Family & Internal Medicine [facility] [address] [place] [address] [place] Og[place] [address] [place] [address] RE: Medication Questions Social History Tobacco [...] Sex Assigned at Female 06/28/2021 1:39 PM BAKERY HELPER Legal Sex Female 3:51 PM BAKERY HELPER Gender Identity Female 06/28/2021 1:39 PM BAKERY HELPER Sexual Orientation Straight 06/28/2021 1: 39 PM BAKERY HELPER Occupation Industry Job Start Date Job [...] [facility] Interventional [place] [address] [id number] Carolyn Fernando MD [address] [address] 02/21/2025 9:00 AM CDT - 02/21/2025 9:20 AM CDT Surgery [facility] Interventional [place] [address] [id number] Carolyn Fernando MD [address] [address] BLOCK SACROILIAC JOINT 05/05/2025 1:00 PM BAKERY HELPER Office Visit [facility] Family & Internal Medicine [address] [phone] [place] [address] [place] [address] 08/15/2025 2:20 PM BAKERY HELPER Office Visit [facility] Group Family & Internal Medicine - [place] [address] [place] [phone] [place] [address] [place] [address] Scheduled Procedures Name Priority Associated Diagnoses Date/Ti me BLOCK SACROILIAC JOINT SI joint arthritis 02/21/2025 9:00 AM CDT documented as of this encounter Visit Diagnoses Not on filedocumented in this encounter Additional Health Concerns Infection Onset Date Last Indicated Resolved Time COVID-19 Rule Out 09/08/2021 09/08/2021 09/08/2021 10:37 AM BAKERY HELPER documented as of this encounter Care Teams Assistant News Director Relationship Specialty Start Date End Date Vanessa Ogden MD PCP - General INTERNAL MEDICINE 08/14/18 08/10/22 [place] [address] [address] [place] [address] PCP - General FAMILY PRACTICE 08/11/22 Jordan Castro MD [address] [facility] [address] [place] [address] Surgeon ORTHOPAEDIC SURGERY 01/13/20 Akhil Vergara DO [address] [place] [address] INTERNAL MEDICINE 01/02/25 documented as of this encounter
--- OUTSIDE RECORDS SUMMARY | 2025-02-14 16:32 | XMS_ITS | Encounter Summary ---
Author Organization [facility] Address [address] [place] [address] Care Team Providers Care Net Development Manager Name Role Phone Vanessa Ogden MD Primary Care Provider [phone] Jordan Castro MD Unavailable [phone] Soila Neumann MD Primary Care Provider Akhil Vergara DO Unavailable Encounter Details Date Type Department Care Team (Late st Contact Info) Description 02/18/2021 SKC Communicationst Message Enc [facility] Medical Group Family & Internal Medicine [facility] [address] [place] [address] [place] Ogden [place] [id number] [place] [address] RE: Medication Questions Social History Tobacco [...] Sex Assigned at Female 06/28/2021 1:39 PM TOOTH POLISHER Legal Sex Female 3:51 PM TOOTH POLISHER Gender Identity Female 06/28/2021 1:39 PM TOOTH POLISHER Sexual Orientation Straight 06/28/2021 1: 39 PM TOOTH POLISHER COVID-19 Exposure Response Date Recorded In the [facility] [place] [address] [phone] Carolyn Fernando MD [facility] [address] [place] [address] 02/21/2025 9:00 AM CDT - 02/21/2025 9:20 AM CDT Surgery [facility] [place] [place] [address] [id number] Carolyn Fernando MD Three [facility] [address] [place] [address] BLOCK SACROILIAC JOINT 05/05/2025 1:00 PM TOOTH POLISHER Office Visit [facility] Medical Group Family & Internal Medicine [address] [address] Soila Neumann MD [address] [place] [address] [place] [address] 08/15/2025 2:20 PM TOOTH POLISHER Office Visit [facility] Family & Internal Medicine - [place] [address] [place] [phone] [place] [address] [facility] [address]. [address] [place] [address] Scheduled Procedures Name Priority Associated Diagnoses Date/Ti me BLOCK SACROILIAC JOINT SI joint arthritis 02/21/2025 9:00 AM CDT documented as of this encounter Visit Diagnoses Not on filedocumented in this encounter Additional Health Concerns Infection Onset Date Last Indicated Resolved Time COVID-19 Rule Out 09/08/2021 09/08/2021 09/08/2021 10:37 AM TOOTH POLISHER documented as of this encounter Care Teams Net Development Manager Relationship Specialty Start Date End Date Vanessa Ogden MD PCP - General INTERNAL MEDICINE 08/14/18 08/10/22 [place] [address] [facility] [address]. [address] [place] [address] PCP - General FAMILY PRACTICE 08/11/22 Jordan Castro MD [address] [place] [address] [address] [place] [address] Surgeon ORTHOPAEDIC SURGERY 01/13/20 Akhil Vergara DO [address] [place] [address] INTERNAL MEDICINE 01/02/25 documented as of this encounter
--- OUTSIDE RECORDS SUMMARY | 2025-02-14 16:32 | XMS_ITS | Encounter Summary ---
Author Organization [facility] Address [address] [place] [address] Care Team Providers Care Application Security Architect Name Role Phone Jordan Castro MD Unavailable [phone] Soila Neumann MD Primary Care Provider [phone] Akhil Vergara DO Unavailable Encounter Details Date Type Department Care Team (Late st Contact Info) Description 02/12/2024 Invenergyt Message Enc [facility] Multispecialty Care - [facility] [address] [facility], [address] [place] [address] Dinesh Cruz DO [address] [facility] [address] [place] [address] medication NYSTOP Social History Tobacco Use Types [...] Sex Assigned at Female 06/28/2021 1:39 PM SAND CASTER Legal Sex Female 3:51 PM SAND CASTER Gender Identity Female 06/28/2021 1:39 PM SAND CASTER Sexual Orientation Straight 06/28/2021 1: 39 PM SAND CASTER Occupation Industry Job Start Date Job End Date RETIRED Not on file Not on file Not on file documented as of this encounter Plan of Treatment Upcoming Encounters Date Type Department Care Team (Latest Contact Info) Description 02/21/2025 9:00 AM CDT Hospital Encounter [facility] Interventional [place] [address] [id number] Carolyn Fernando MD Three [facility] [address] [place] [address] 02/21/2025 9:00 AM CDT - 02/21/2025 9:20 AM CDT Surgery [facility] Interventional Pain [place] [address] [id number] Carolyn Fernando MD Three [facility] [address] [place] [address] BLOCK SACROILIAC JOINT 05/05/2025 1:00 PM SAND CASTER Office Visit [facility] Family & Internal [address] [phone] [place] [address] [place] [phone] 08/15/2025 2:20 PM SAND CASTER Office Visit [facility] Family & Internal [address] [phone] [place] [address] [facility] [address] [place] [address] [phone] Scheduled Procedures Name Priority Associated Diagnoses Date/Ti me BLOCK SACROILIAC JOINT SI joint arthritis 02/21/2025 9:00 AM CDT documented as of this encounter Visit Diagnoses Not on filedocumented in this encounter Additional Health Concerns Assessment Noted Time PHQ-9 Depression Total Score: 2 08/03/19 2:16 PM SAND CASTER documented as of this encounter Care Teams Application Security Architect Relationship Specialty [place] [address] [address] [place] [address] PCP - General FAMILY PRACTICE 08/11/22 Jordan Castro MD [address] [place] [address] Surgeon ORTHOPAEDIC SURGERY 01/13/20 Akhil Vergara DO [address] [place] [address] INTERNAL MEDICINE 01/02/25 documented as of this encounter
--- NOTE | 2025-02-14 17:22 | ED_ITS ---
HPI - Extremity Injury (Lower) General Chief Complaint: Extremity Injury, Lower Stated Complaint: BLE edema and weeping Time Seen by Provider: 02/14/25 15:27 Source: patient Mode of arrival: ambulatory Limitations: no limitations History of Present Illness HPI Narrative: Patient is a 74-year-old female, with PMH of RA, AFIB on xarelto, who presents the ED with report of swelling throughout her bilateral lower extremities. Patient reports having intermittent swelling and weeping of her BLE for the past 3 weeks. She states she saw her PCP and was told her BNP was elevated. She saw Dr. Vergara with cardiology 1 week ago and had her amlodipine changed from HCTZ. She states the swelling has improved somewhat, but is still present. States she message her brand marketing coordinator today and was referred to the ED for IV diuretics. Reports swelling does not significantly improve with elevation of legs. Denies significant pain of legs. Denies fevers, chest pain, shortness breath, dyspnea on exertion, orthopnea. Denies known previous history of CHF. Does not believe she has ever had an echocardiogram. Related Data Home Medications ?Medication ?Instructions ?Recorded ?Confirmed ?Last Taken ?Type levothyroxine 125 mcg tablet 125 mcg PO DAILY 06/18/19 12/30/24 01/16/20 05:30 History (Synthroid) omeprazole 20 mg capsule,delayed 20 mg PO DAILY 06/18/19 12/30/24 01/15/20 History release lisinopril 20 mg tablet 20 mg PO DAILY 01/10/20 12/30/24 01/15/20 History cyanocobalamin (vitamin B-12) 100 mcg subcut MONTHLY 04/09/20 12/30/24 Unknown History 1,000 mcg/mL injection solution azelastine 137 mcg (0.1 %) nasal 1 spray intranasal Q12H 01/12/23 12/30/24 Unknown History spray cetirizine 10 mg tablet 10 mg PO DAILY PRN allergy symptoms 01/12/23 12/30/24 Unknown History cholecalciferol (vitamin D3) 10 10 mcg PO DAILY 01/12/23 12/30/24 Unknown History mcg (400 unit) capsule cyclobenzaprine 5 mg tablet 5 mg PO TID PRN muscle pain 01/12/23 12/30/24 Unknown History diclofenac epolamine 1.3 % 1 patch topical .prn 01/12/23 12/30/24 Unknown History transdermal 12 hour patch estradiol 1 mg tablet 1 mg PO DAILY 01/12/23 12/30/24 Unknown History folic acid 1 mg tablet 1 mg PO DAILY 01/12/23 12/30/24 Unknown History gabapentin 400 mg capsule 400 mg PO QID 01/12/23 12/30/24 Unknown History hydrocodone 7.5 mg-acetaminophen 1 tablet PO QHS PRN pain 01/12/23 12/30/24 Unknown History 325 mg tablet magnesium 200 mg tablet 200 mg PO BID 01/12/23 12/30/24 Unknown History ondansetron HCl 8 mg tablet 8 mg PO Q12H 01/12/23 12/30/24 Unknown History methotrexate sodium 5 mg tablet 25 mg PO WEEKLY 05/15/23 12/30/24 Unknown History tolterodine 2 mg tablet 2 mg PO Q12H 04/29/24 12/30/24 Unknown History Allergies Allergy/AdvReac Type Severity Reaction Status Date / Time Sulfa (Sulfonamide Allergy Severe Hives Verified 06/30/24 14:09 Antibiotics) sulfanilamide Allergy Severe Hives Verified 06/30/24 14:09 codeine AdvReac Intermediate Nausea Verified 06/30/24 14:09 tramadol AdvReac Intermediate Hallucinati Verified 06/30/24 14:09 ng Review of Systems 2 Review of Systems: All systems reviewed & are unremarkable except as noted in HPI. All systems reviewed & are unremarkable except as noted in HPI and below PMFSH Past Medical History Medical History Hallux rigidus of right foot Ankle impingement syndrome, right Degenerative joint disease of ankle Acute pain of left knee Fibromyalgia HTN (hypertension) XENIA (obstructive sleep apnea) Asthma Hypercholesterolemia Obesity Family History Family History Grandparent Family history of kidney disease Family history of heart disease in male family member before age 55 Sibling Family history of migraine headaches Asthma Patient's sister is in good health Father Family history of glaucoma Family history of chronic obstructive pulmonary disease, Onset Age: 87 Mother Hypertension Asthma Family history of heart disease in male family member before age 55 Patient's mother is in good health Family history of arthritis Family history of anemia Family history of chronic obstructive pulmonary disease, Onset Age: 4 Family history of congestive heart failure Other Acute myocardial infarction Cerebrovascular accident Diabetes mellitus Family history of allergic disorder Family history of cardiovascular disease Family history of mental disorder Social History Social History Smoking status: Former smoker Smoking end date: 07/03/69 Alcohol intake: current Alcohol use details: BEER/MIX DRINK ONE DRINK PER MONTH Do You Feel Safe in your Home?: Yes Lack of Transportation: No Lack of Food: Never True Current Housing: I Have Housing Concerned About Future Housing: No Difficulty Paying Gas/Electric Bills: No Difficulty Paying for Meds: No Currently Unemployed: No Education: Decline to Answer Difficulty w/ Childcare or Family Care: No Living arrangements: with family Gender identity (if verbalized by the patient): Female Spiritual care concerns: No Exam 2 Narrative: GENERAL: Well appearing, obese with BMI of 38.7, non-toxic, in no acute distress. HEAD: Normocephalic, atraumatic. RESPIRATORY: Airway patent, respirations nonlabored. Clear to auscultation bilaterally, no rales, rhonchi, wheezing. No significant focal lung sounds. CARDIOVASCULAR: Regular rate and rhythm without murmurs, rubs, or gallops. Pedal pulses intact MUSCULOSKELETAL: Moves all extremities. No gross deformities. Diffuse pitting edema to bilateral lower extremities, ankles, feet. Minimal diffuse tenderness. Sensation intact. Small areas of serous weeping to vinny anterior shins SKIN: Warm, dry, normal color. NEURO: A&O X3. Speech clear. Cranial nerves II-XII grossly intact. Steady gait. No ataxic movements. PSYCHIATRIC: Appropriate mood and affect. Normal interaction. Course Vital Signs Vital signs: Vital Signs Temperature 97.8 F 02/14/25 14:52 Pulse Rate 108 H 02/14/25 14:52 Respiratory Rate 18 02/14/25 14:52 Blood Pressure 158/71 H 02/14/25 14:52 Pulse Oximetry 98 02/14/25 14:52 Oxygen Delivery Room Air 02/14/25 14:52 Temperature 97.8 F 02/14/25 14:52 Pulse Rate 80 02/14/25 18:00 Respiratory Rate 16 02/14/25 18:00 Blood Pressure 119/58 L 02/14/25 18:00 Pulse Oximetry 96 02/14/25 18:00 Oxygen Delivery Room Air 02/14/25 14:52 MDM - Extremity Injury (Lower) MDM Narrative Medical decision making narrative: Patient presented to ED with several week history of lower extremity swelling/weeping, concerned she needs IV diuretics. Was recently switched from amlodipine to hydrochlorothiazide with some improvement of swelling. No known history of CHF. Per records, ECHO from 10/2022 does show normal LV EF of 60- 65%, grade 1 diastolic dysfunction. Vital signs are stable upon arrival. Patient in no acute distress. Afebrile. CBC with mild leukocytosis of 14.1. Denies infectious etiology. There is no evidence of cellulitis on exam. CMP unremarkable. Blood glucose mildly elevated to 168. EKG without significant concerning changes. Troponin is undetectable. BNP is very minimally elevated to 193. Patient is otherwise denying shortness breath, dyspnea with exertion, orthopnea. Chest x-ray is clear here today. Venous Doppler ultrasound was obtained and negative for DVT. Overall patient very much stable. No evidence of marked fluid overload to suggest need for emergent IV diuresis, admission, emergent echo. Discussed case with Dr. Vergara, cardiology, agrees with plan for outpatient follow-up/outpatient echo. Okay with patient starting Lasix 20 mg daily. Advised to follow-up in office. Discussed these recommendations with patient. She is in agreement this plan. She does not wish to be admitted at this time. Would like to start the Lasix tomorrow versus tonight. Prescription sent to pharmacy. Patient given strict return precautions. Discharged in stable condition. Medical Records Attestation: I reviewed the patient's medical records. Lab Data Attestation: I reviewed the patient's lab results. 02/14/25 15:06 02/14/25 15:06 Labs: Lab Results 02/14/25 Range/Units 15:06 WBC 14.1 H (4.5-10.0) K/mm3 RBC 3.99 L (4.2-5.4) M/mm3 Hgb 12.1 (12.0-15.0) g/dL Hct 37.2 (37.0-47.0) % MCV 93.2 (80-100) fl MCH 30.3 (26-34) pg MCHC 32.5 (32-36) g/dl RDW 15.0 H (11.5-14.5) % Plt Count 277 (150-375) k/mm3 MPV 9.2 (7.4-10.4) fl Immature Gran % (Auto) 0.9 H (0-0.5) % Neut % (Auto) 81.1 H (45.5-73.1) % Lymph % (Auto) 11.6 L (18.3-44.2) % Hutch[place] % (Auto) 6.3 (2.6-8.5) % Eos % (Auto) 0.0 (0-4.4) % Baso % (Auto) 0.1 L (0.2-1.2) % Lymph # (Auto) 1.64 (0.9-3.2) K/mm3 Hutchinson # (Auto) 0.9 H (0.1-0.6) K/mm3 Eos # (Auto) 0.0 (0-0.3) K/mm3 Baso # (Auto) 0.0 (0.0-0.1) K/mm3 Abs Immat Gran (auto) 0.13 H (0.00-0.031) K/mm3 Absolute Neuts (auto) 11.4 H (1.3-6.7) K/mm3 Absolute Nucleated RBC 0.000 (0.0-0.012) K/mm3 Nucleated RBC % 0.0 (0.0-0.2) % PT 15.1 H (11.1-14.7) Seconds INR 1.2 APTT 41.9 H (22.3-36.8) Seconds Sodium 136 L (137-145) mmol/L Potassium 3.9 (3.4-5.0) mmol/L Chloride 103 (98-107) mmol/L Carbon Dioxide 23 (22-30) mmol/L Anion Gap 10 (4-12) mmol/L BUN 25 H (7-17) mg/dL Creatinine 0.71 (0.7-1.0) mg/dL Estim Creat Clear Calc 73 ml/min Estimated GFR > 60 (59 - ) Glucose 168 H (65-110) mg/dL Calcium 9.6 (8.4-10.2) mg/dL Total Bilirubin 0.3 (0.2-1.3) mg/dL AST 28 (14-36) U/L ALT 23 (6-35) U/L Alkaline Phosphatase 53 (38-126) U/L Troponin I < 0.012 (0.000-0.034) ng/mL NT-Pro-B Natriuret Pep 193 H (19.9-100) pg/mL Total Protein 7.2 (6.3-8.2) g/dL Albumin 4.2 (3.5-5.1) g/dL Urine Color Yellow (Yellow) Urine Appearance Clear (Clear) Urine pH 5.5 (5.0-9.0) Ur Specific [place] 1.025 (1.001-1.035) Urine Protein Negative (Negative) mg/dL Urine Glucose (UA) Trace H (Negative) mg/dL Urine Ketones Negative (Negative) mg/dL Ur Blood (Man) Negative (Negative) Urine Nitrate Negative (Negative) Urine Bilirubin Negative (Negative) Urine Urobilinogen 0.2 (<2.0) mg/dL Leukocyte Esterase Rfl Negative (Negative) JT/UL Imaging Data Attestation: I personally reviewed and interpreted this imaging study as follows: Radiologist's impression: ITS Impressions Chest X-Ray 02/14/25 17:06 IMPRESSION: No focal infiltrate or effusion. Venous Doppler Study 02/14/25 18:05 IMPRESSION: 1. No deep venous thrombosis. ECG Data EKG #1: Attestation: I personally reviewed and interpreted this ECG as follows: ECG completion date: 02/14/25 ECG completion time: 15:06 EKG Interpretation: normal rate (95), sinus rhythm (first degree AV block) and non-specific ST changes Discharge Plan Discharge Clinical Impression: Swelling of both lower extremities Patient Disposition: Home Condition: Stable Instructions: Antibiotic Form, Heart Failure (ED), Leg Edema (ED) Additional Instructions: Take Lasix daily for leg swelling. Keep legs elevated as much as possible. You may utilize compression stockings as needed. Follow-up closely with your brand marketing coordinator for further evaluation and outpatient echocardiogram. Return to the ED for worsening or severe symptoms, severe pain, chest pain, difficulty breathing, or any other symptoms of concern. Patient Language: Bulgarian Prescriptions: New furosemide [Lasix] 20 mg tablet 20 mg PO DAILY Qty: 30 0RF No Action methylprednisolone [Medrol (Reginald)] 4 mg tablets,dose pack See Rx Instructions .ROUTE .COMPLEX Qty: 21 0RF Rx Instructions: orally per package directions doxycycline hyclate 100 mg tablet 100 mg PO BID 7 Days Qty: 14 0RF cetirizine 10 mg tablet 10 mg PO DAILY PRN (Reason: allergy symptoms) ondansetron HCl 8 mg tablet 8 mg PO Q12H gabapentin 400 mg capsule 400 mg PO QID estradiol 1 mg tablet 1 mg PO DAILY Rx Instructions: off 1 week; repeat cycle hydrocodone-acetaminophen 7.5-325 mg tablet 1 tablet PO QHS PRN (Reason: pain) folic acid 1 mg tablet 1 mg PO DAILY azelastine 137 mcg (0.1 %) aerosol,spray 1 spray intranasal Q12H Rx Instructions: administer into each nostril magnesium 200 mg tablet 200 mg PO BID cholecalciferol (vitamin D3) 10 mcg (400 unit) capsule 10 mcg PO DAILY cyclobenzaprine 5 mg tablet 5 mg PO TID PRN (Reason: muscle pain) diclofenac epolamine 1.3 % patch 12 hour 1 patch topical .prn tolterodine 2 mg tablet 2 mg PO Q12H cyanocobalamin (vitamin B-12) 1,000 mcg/mL solution 100 mcg subcut MONTHLY methotrexate sodium 5 mg tablet 25 mg PO WEEKLY Patient Comments: Patient doing 6 every monday lisinopril 20 mg Tablet 20 mg PO DAILY levothyroxine [Synthroid] 125 mcg tablet 125 mcg PO DAILY omeprazole 20 mg capsule,delayed release(DR/EC) 20 mg PO DAILY albuterol sulfate 2.5 mg /3 mL (0.083 %) solution for nebulization 2.5 mg inhalation QID PRN (Reason: shortness of breath or wheezing) Qty: 360 2RF albuterol sulfate 90 mcg/actuation HFA aerosol inhaler See Rx Instructions .ROUTE .COMPLEX Qty: 51 3RF Dose Instruction: USE 1 TO 2 INHALATIONS BY MOUTH INHALED EVERY 4 TO 6 HOURS NEEDED FOR SHORTNESS OF BREATH OR WHEEZING Rx Instructions: USE 1 TO 2 INHALATIONS BY MOUTH INHALED EVERY 4 TO 6 HOURS NEEDED FOR SHORTNESS OF BREATH OR WHEEZING pravastatin 10 mg tablet See Rx Instructions .ROUTE .COMPLEX Qty: 90 2RF Dose Instruction: TAKE 1 TABLET BY MOUTH DAILY Rx Instructions: TAKE 1 TABLET BY MOUTH DAILY Xarelto 20 mg tablet See Rx Instructions .ROUTE .COMPLEX Qty: 90 2RF Dose Instruction: TAKE 1 TABLET BY MOUTH EVERY EVENING (MUST ADMINISTER WITH EVENING MEAL ) Rx Instructions: TAKE 1 TABLET BY MOUTH EVERY EVENING (MUST ADMINISTER WITH EVENING MEAL ) amiodarone 100 mg tablet See Rx Instructions .ROUTE .COMPLEX Qty: 90 2RF Dose Instruction: TAKE 1 TABLET BY MOUTH DAILY Rx Instructions: TAKE 1 TABLET BY MOUTH DAILY fluticasone propion-salmeterol [Advair Diskus] 250-50 mcg/dose blister with device 1 inh inhalation BID Qty: 60 11RF Rx Instructions: Rinse mouth and spit after each use hydrochlorothiazide 25 mg tablet 25 mg PO DAILY Qty: 30 5RF Follow-up/Referrals: Akhil Vergara DO [Physician] - (CARDIOLOGY) Thien,MD Soila [Primary Care Provider] - Time of Disposition: 18:42
[2025-02-14 18:00] VITALS: BP 119/58; PULSE 80; RESP 16; O2SAT 96
== END 2025-02-14 18:54 | disposition home or self-care (01) ==
PROVIDERS: Emergency Provider Physician Assistant; PCP Family Medicine
DX: R22.43 Localized swelling, mass and lump, lower limb, bilateral (principal); I48.91 Unspecified atrial fibrillation; I10 Essential (primary) hypertension; J45.909 Unspecified asthma, uncomplicated; E78.00 Pure hypercholesterolemia, unspecified; E66.9 Obesity, unspecified; Z68.38 Body mass index [BMI] 38.0-38.9, adult; M06.9 Rheumatoid arthritis, unspecified; M19.079 Primary osteoarthritis, unspecified ankle and foot; M79.7 Fibromyalgia; G47.33 Obstructive sleep apnea (adult) (pediatric); Z87.891 Personal history of nicotine dependence; Z79.01 Long term (current) use of anticoagulants; Z79.899 Other long term (current) drug therapy; I44.0 Atrioventricular block, first degree
CPT/HCPCS: 36415; 71046; 80053; 81003; 83880; 84484; 85025; 85610; 85730; 93005; 93970; 99284

== ENCOUNTER 2025-06-11 13:43 | Outpatient (CLI) | payer MEDICARE, SELFPAY ==
--- NOTE | ~2025-06-11 | MM_ITS ---
EXAMINATION: MM screening yudith BI w annalisa HISTORY: Screening. TECHNIQUE: Craniocaudal and mediolateral oblique 3-D tomosynthesis images were obtained and synthetic 2-D images were generated. CAD analysis was submitted and interpreted. COMPARISON: 2023, 2020, and 2019. BREAST PARENCHYMAL COMPOSITION: Not Dense: There are scattered areas of fibroglandular FINDINGS: No suspicious masses are seen. There are no suspicious calcifications. No unexplained architectural distortion is seen. There are no skin or nipple abnormalities identified. There is no adenopathy seen on the images submitted. IMPRESSION: No mammographic evidence to suggest malignancy is seen. The patient may return to screening mammography as per ACR guidelines. BI-RADS 1 - Negative. Reviewed, dictated and finalized at location C. 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
== END 2025-06-11 13:44 | disposition home or self-care (01) ==
LOC: MICIMG 13:44
PROVIDERS: PCP Family Medicine; Visit Provider Obstetrics & Gynecology
DX: Z12.31 Encounter for screening mammogram for malignant neoplasm of breast (principal)
CPT/HCPCS: 77063; 77067